=== PATIENT | female | born 1950 | race Caucasian/White ===

== ENCOUNTER 2016-09-02 13:39 | Inpatient (IN) | payer MEDICARE ==
[2016-09-02] MEDS ORDERED: SODIUM CHLORIDE 0.9% 500 ML IV STA (13:48)
[2016-09-02] MEDS ORDERED: SODIUM CHLORIDE 0.9% 1,000 ML IV STA ×2 (13:48→15:24)
[2016-09-02] MEDS ORDERED: KETOROLAC 30 MG/ML 1 ML VIAL IVP STA (13:49)
[2016-09-02] MEDS ORDERED: ACETAMINOPHEN IV (For NPO) 1,000 MG in EMPTY BAG 1 BAG IVPB STA (13:49)
--- NOTE | 2016-09-02 14:16 | ED ---
General Adult HPI - General Chief complaint: Weakness Stated complaint: weakness Time Seen by Provider: 09/02/16 13:48 Source: patient, family, EMS, RN notes reviewed, old records reviewed Mode of arrival: EMS Limitations: no limitations - History of Present Illness Initial comments: This is a 66-year-old female to the ER for evaluation. Patient today presents for evaluation of fever weakness not feeling well. Fever started today getting progressively worse. Patient has shortness of breath cough and congestion. Has had recent upper respiratory infection including runny nose. No known sick contacts a little family members have had flu. Patient denies any chest pain or any pain in general, states her RA is causing her pain but she always has that. Area or nausea vomiting, for family decreased appetite - Related Data Home Medications Medication Instructions Recorded Confirmed Omeprazole [PriLOSEC] 20 mg PO BID 02/20/14 09/02/16 predniSONE 10 mg PO DAILY 02/20/14 09/02/16 Cyanocobalamin [Vitamin B-12] 2,500 mcg PO DAILY 08/19/14 09/02/16 Ergocalciferol [Vitamin D2 50,000 unit PO WE 08/19/14 09/02/16 (DRISDOL)] Ferrous Sulfate [Iron (65 MG 325 mg PO HS 08/19/14 09/02/16 Elemental)] Furosemide 60 mg PO QAM 08/19/14 09/02/16 Calcitriol 0.25 mcg PO SUTUFR 01/07/15 09/02/16 Liothyronine Sodium [Cytomel] 5 mcg PO DAILY 01/07/15 09/02/16 ALPRAZolam [Xanax] 0.25 mg PO BID PRN 09/02/16 09/02/16 Carvedilol [Coreg] 25 mg PO BID 09/02/16 09/02/16 Enalapril [Vasotec] 5 mg PO HS 09/02/16 09/02/16 Gabapentin [Neurontin] 100 mg PO TID 09/02/16 09/02/16 Magnesium 200 mg PO DAILY 09/02/16 09/02/16 Metolazone [Zaroxolyn] 2.5 mg PO Q48H 09/02/16 09/02/16 Morphine Sulfate ER [Ms Contin 15 mg PO Q12HR 09/02/16 09/02/16 15Mg] Repaglinide [Prandin] 0.5 mg PO TID 09/02/16 09/02/16 Simvastatin [Zocor] 40 mg PO HS 09/02/16 09/02/16 Previous Rx's Medication Instructions Recorded Ondansetron Odt [Zofran ODT] 4 mg PO Q8HR PRN #15 tab 01/04/15 Levothyroxine Sodium [Synthroid] 25 mcg PO DAILY@0630 tab 01/12/15 Allergies Allergy/AdvReac Type Severity Reaction Status Date / Time codeine Allergy Rash/Hives Verified 09/02/16 14:51 Sulfa (Sulfonamide Allergy Rash/Hives Verified 09/02/16 14:51 Antibiotics) gold Allergy Unknown Uncoded 09/02/16 13:45 Review of Systems ROS Statement: Those systems with pertinent positive or pertinent negative responses have been documented in the HPI. ROS Other: All systems not noted in ROS Statement are negative. Past Medical History Past Medical History: Hyperlipidemia, Renal Disease, Thyroid Disorder Additional Past Medical History / Comment(s): low vitamin d levels which caused renal deficiency, parathyroid overactive related to low vit d levels, chronic prednisone secondary to RA followed by Dr. Marlow, ANEMIA,COMPRESSION FX L1, PAST FALL. of lithiasis History of Any Multi-Drug Resistant Organisms: None Reported Past Surgical History: Orthopedic Surgery Additional Past Surgical History / Comment(s): right knee TKA 2, carpel tunnel , CYST REMOVED (NECK) AGE 6 Past Anesthesia/Blood Transfusion Reactions: No Reported Reaction Past Psychological History: Anxiety Smoking Status: Never smoker Past Alcohol Use History: None Reported Past Drug Use History: None Reported - Past Family History Mother Additional Family Medical History / Comment(s): addisons disease Father Family Medical History: Hypertension General Exam Limitations: no limitations General appearance: alert, in no apparent distress, anxious, in distress Head exam: Present: atraumatic, normocephalic, normal inspection Eye exam: Present: normal appearance, PERRL, EOMI. Absent: scleral icterus, conjunctival injection, periorbital swelling ENT exam: Present: mucous membranes dry Neck exam: Present: normal inspection. Absent: tenderness, meningismus, lymphadenopathy Respiratory exam: Present: normal lung sounds bilaterally, wheezes, accessory muscle use, decreased breath sounds, prolonged expiratory. Absent: respiratory distress, rales, rhonchi, stridor Cardiovascular Exam: Present: normal rhythm, tachycardia, normal heart sounds. Absent: systolic murmur, diastolic murmur, rubs, gallop, clicks GI/Abdominal exam: Present: soft, normal bowel sounds. Absent: distended, tenderness, guarding, rebound, rigid Extremities exam: Present: normal inspection, full ROM, normal capillary refill. Absent: tenderness, pedal edema, joint swelling, calf tenderness Back exam: Present: normal inspection Neurological exam: Present: alert, oriented X3, CN II-XII intact Psychiatric exam: Present: normal affect, normal mood Skin exam: Present: warm, dry, intact, normal color. Absent: rash Course Vital Signs 09/02/16 09/02/16 13:41 15:35 Temperature 101.1 F H 99.3 F Pulse Rate 106 H 93 Respiratory 20 20 Rate Blood Pressure 151/72 120/58 O2 Sat by Pulse 91 L 100 Oximetry - Reevaluation(s) Reevaluation #1: 09/02/16 15:44 At this time patient's expansion mild clinical improvement with fever control and therapy, EKG Findings - EKG Comments: EKG Findings:: EKG shows normal sinus rhythm rate of 100, NM 156, QRS 74, QTC 433 Medical Decision Making - Medical Decision Making 62 for female here with fever weakness, woke with fever today, no nausea vomiting or diarrhea. Flu negative x-ray negative, urine pending, patient does appear dehydrated, also with anemia which is symptomatic. Patient will be admitted for fever control evaluation of blood cultures and bacteremia, transfusion - Lab Data Result diagrams: 09/02/16 14:25 09/02/16 14:25 Lab Results 09/02/16 09/02/16 09/02/16 Range/Units 13:49 14:25 14:25 WBC 6.8 (3.8-10.6) k/uL RBC 2.19 L (3.80-5.40) m/uL Hgb 6.7 L* (11.4-16.0) gm/dL Hct 21.8 L (34.0-46.0) % MCV 99.5 (80.0-100.0) fL MCH 30.5 (25.0-35.0) pg MCHC 30.7 L (31.0-37.0) g/dL RDW 14.5 (11.5-15.5) % Plt Count 163 (150-450) k/uL Neutrophils % 85 % Lymphocytes % 5 % Monocytes % 5 % Eosinophils % 3 % Basophils % 0 % Neutrophils # 5.7 (1.3-7.7) k/uL Lymphocytes # 0.4 L (1.0-4.8) k/uL Monocytes # 0.3 (0-1.0) k/uL Eosinophils # 0.2 (0-0.7) k/uL Basophils # 0.0 (0-0.2) k/uL Hypochromasia Moderate Macrocytosis Slight PT 10.7 (9.0-12.0) sec INR 1.1 (<1.1) APTT 22.1 (22.0-30.0) sec Sodium (137-145) mmol/L Potassium (3.5-5.1) mmol/L Chloride (98-107) mmol/L Carbon Dioxide (22-30) mmol/L Anion Gap mmol/L BUN (7-17) mg/dL Creatinine (0.52-1.04) mg/dL Est GFR (MDRD) Af Amer (>60 ml/min/1.73 sqM) Est GFR (MDRD) Non-Af (>60 ml/min/1.73 sqM) Glucose (74-99) mg/dL Plasma Lactic Acid Ricci (0.7-2.0) mmol/L Calcium (8.4-10.2) mg/dL Phosphorus (2.5-4.5) mg/dL Magnesium (1.6-2.3) mg/dL Total Bilirubin (0.2-1.3) mg/dL AST (14-36) U/L ALT (9-52) U/L Alkaline Phosphatase (38-126) U/L Total Creatine Kinase (30-135) U/L CK-MB (CK-2) (0.0-2.4) ng/mL CK-MB (CK-2) Rel Index Troponin I (0.000-0.034) ng/mL Total Protein (6.3-8.2) g/dL Albumin (3.5-5.0) g/dL Influenza Type A RNA Not Detected (Not Detectd) Influenza Type B (PCR) Not Detected (Not Detectd) 09/02/16 09/02/1609/02/17 Range/Units 14:25 14:25 14:55 WBC (3.8-10.6) k/uL RBC (3.80-5.40) m/uL Hgb (11.4-16.0) gm/dL Hct (34.0-46.0) % MCV (80.0-100.0) fL MCH (25.0-35.0) pg MCHC (31.0-37.0) g/dL RDW (11.5-15.5) % Plt Count (150-450) k/uL Neutrophils % % Lymphocytes % % Monocytes % % Eosinophils % % Basophils % % Neutrophils # (1.3-7.7) k/uL Lymphocytes # (1.0-4.8) k/uL Monocytes # (0-1.0) k/uL Eosinophils # (0-0.7) k/uL Basophils # (0-0.2) k/uL Hypochromasia Macrocytosis PT (9.0-12.0) sec INR (<1.1) APTT (22.0-30.0) sec Sodium 146 H (137-145) mmol/L Potassium 3.9 (3.5-5.1) mmol/L Chloride 110 H (98-107) mmol/L Carbon Dioxide 26 (22-30) mmol/L Anion Gap 10 mmol/L BUN 68 H (7-17) mg/dL Creatinine 1.37 H (0.52-1.04) mg/dL Est GFR (MDRD) Af Amer 47 (>60 ml/min/1.73 sqM) Est GFR (MDRD) Non-Af 39 (>60 ml/min/1.73 sqM) Glucose 98 (74-99) mg/dL Plasma Lactic Acid Ricci 0.9 (0.7-2.0) mmol/L Calcium 8.6 (8.4-10.2) mg/dL Phosphorus 2.8 (2.5-4.5) mg/dL Magnesium 1.9 (1.6-2.3) mg/dL Total Bilirubin 0.4 (0.2-1.3) mg/dL AST 21 (14-36) U/L ALT 22 (9-52) U/L Alkaline Phosphatase 92 (38-126) U/L Total Creatine Kinase 22 L (30-135) U/L CK-MB (CK-2) 0.5 (0.0-2.4) ng/mL CK-MB (CK-2) Rel Index 2.3 Troponin I 0.059 H* (0.000-0.034) ng/mL Total Protein 5.3 L (6.3-8.2) g/dL Albumin 2.8 L (3.5-5.0) g/dL Influenza Type A RNA (Not Detectd) Influenza Type B (PCR) (Not Detectd) - Radiology Data Radiology results: report reviewed (Chest x-ray is negative for pneumonia), image reviewed Critical Care Time Critical Care Time: Yes Total Critical Care Time: 31 Disposition Clinical Impression: Sepsis, Symptomatic anemia, Fever, Viral syndrome, ARF (acute renal failure) Disposition: ADMITTED IP TO THIS [facility] Condition: Fair Referrals: Fay Lerner MD [Primary Care Provider] - 1-2 days
--- NOTE | 2016-09-02 15:16 | XR ---
EXAMINATION TYPE: XR chest 2V DATE OF EXAM: 09/02/2016 3:11 PM COMPARISON: 08/18/2015 HISTORY: 66-year-old female with weakness TECHNIQUE: AP and lateral views FINDINGS: Heart remains mildly enlarged. Diffuse interstitial and vascular prominence without pleural effusion or jefferson consolidation. IMPRESSION: Mild cardiomegaly and diffuse interstitial/vascular prominence which appears increased from prior. Co rrelate to exclude mild CHF.
[2016-09-02 15:18] LABS: Basophils % (A) 0 %; CH 30.7; Calcium 8.6 mg/dL (8.4-10.2); Eosinophils # (A) 0.2 k/uL (0-0.7); Eosinophils % (A) 3 %; HCT 21.8 % (34.0-46.0); HDW 3.24; Hypochromasia Moderate; Luc # (Auto) 0.06; Luc % (Auto) 1; Lymphocytes # (A) 0.4 k/uL (1.0-4.8); Lymphocytes % (A) 5 %; MCH 30.5 pg (25.0-35.0); MCHC 30.7 g/dL (31.0-37.0); MCV 99.5 fL (80.0-100.0); Macrocytosis Slight; Magnesium 1.9 mg/dL (1.6-2.3); Mean Platelet Volume 8.1; Monocytes # (A) 0.3 k/uL (0-1.0); Monocytes % (A) 5 %; Neutrophils # (A) 5.7 k/uL (1.3-7.7); Neutrophils % (A) 85 %; Phosphorous 2.8 mg/dL (2.5-4.5); Potassium 3.9 mmol/L (3.5-5.1); RBC 2.19 m/uL (3.80-5.40); RDW 14.5 % (11.5-15.5); Total Bilirubin 0.4 mg/dL (0.2-1.3); Total Protein 5.3 g/dL (6.3-8.2); WBC 6.8 k/uL (3.8-10.6); WBC (Perox) 6.73
[2016-09-02 15:20] LABS: HGB 6.7 gm/dL (11.4-16.0)
[2016-09-02 15:24] LABS: INR 1.1 (<1.1); Partial Thromboplastin Time 22.1 sec (22.0-30.0); Prothrombin Time 10.7 sec (9.0-12.0)
[2016-09-02 15:34] LABS: Creatine Kinase MB 0.5 ng/mL (0.0-2.4)
[2016-09-02 15:36] LABS: Troponin I 0.059 ng/mL (0.000-0.034)
[2016-09-02] MEDS ORDERED: IPRATROPIUM-ALBUTEROL 3 ML NEB INHALATION PRN (15:42)
[2016-09-02] MEDS ORDERED: PNEUMONIA PROTOCOL UTILIZED 1 EACH MISC PO PRN (15:42)
[2016-09-02] MEDS ORDERED: ACETAMINOPHEN IV (For NPO) 1,000 MG in EMPTY BAG 1 BAG IVPB PRN (15:45)
[2016-09-02 15:53] LABS: Appearance,Urine Clear (Clear); Bacteria,Urine Occasional /hpf; Bilirubin,Urine Negative (Negative); Glucose,Urine (UA) Negative (Negative); Ketones,Urine Negative (Negative); Leukocyte Esterase,Urine Moderate (Negative); Mucus,Urine Rare /hpf; Nitrite,Urine Negative (Negative); PH, Urine 5.5 (5.0-8.0); Particle Count 46529; Protein,Urine Trace (Negative); RBC,Urine 16 /hpf (0-5); Specific Gravity,Urine 1.007 (1.001-1.035); Squamous Epithelial Cell,Urine <1 /hpf (0-4); UA Billing (MACRO vs. MICRO) MICRO; Urobilinogen,Urine <2.0 mg/dL (<2.0); WBC,Urine 32 /hpf (0-5)
[2016-09-02] MEDS: HYDROmorphone 1 MG/ML 1 ML SYRINGE IVP PRN ×2 (17:06→20:24)
[2016-09-02 18:52] VITALS: BMI 29.9
[2016-09-02] MEDS: SODIUM CHLORIDE 0.9% 1,000 ML IV SCH (18:54)
[2016-09-02] MEDS ORDERED: ALPRAZolam 0.25 MG TAB PO PRN (19:30)
[2016-09-02] MEDS ORDERED: ONDANSETRON ODT 4 MG TAB PO PRN (19:30)
[2016-09-02] MEDS ORDERED: CARVEDILOL 12.5 MG TAB PO SCH (21:00)
[2016-09-02] MEDS: FERROUS SULFATE 325 MG TAB PO SCH (22:32)
[2016-09-02] MEDS: PANTOPRAZOLE 40 MG TABLET PO SCH (22:32)
[2016-09-02] MEDS: GABAPENTIN 100 MG CAP PO SCH (22:32)
[2016-09-02] MEDS: LISINOPRIL 10 MG TAB PO SCH (22:32)
[2016-09-02] MEDS: REPAGLINIDE 1 MG TAB PO SCH (22:32)
[2016-09-02] MEDS: ATORVASTATIN 20 MG TAB PO SCH (22:45)
[2016-09-02] MEDS: MORPHINE SULFATE ER 15 MG TABLET PO SCH (22:45)
[2016-09-02 22:53] LABS: Glucose,Whole Blood 90 mg/dL (75-99)
[2016-09-03] MEDS: HYDROmorphone 1 MG/ML 1 ML SYRINGE IVP PRN ×4 (02:39→23:28)
[2016-09-03 02:44] LABS: Glucose,Whole Blood 60 mg/dL (75-99)
[2016-09-03 03:04] LABS: Glucose,Whole Blood 67 mg/dL (75-99)
[2016-09-03 03:23] LABS: Glucose,Whole Blood 94 mg/dL (75-99)
[2016-09-03 05:53] LABS: Glucose,Whole Blood 123 mg/dL (75-99)
[2016-09-03] MEDS: SODIUM CHLORIDE 0.9% 1,000 ML IV SCH ×3 (06:31→21:18)
[2016-09-03] MEDS: CARVEDILOL 12.5 MG TAB PO SCH ×2 (06:31→17:25)
[2016-09-03] MEDS: LEVOTHYROXINE 25 MCG TAB PO SCH (06:31)
[2016-09-03] MEDS ORDERED: FUROSEMIDE 20 MG TAB PO SCH (09:00)
[2016-09-03] MEDS: LIOTHYRONINE SODIUM 5 MCG TAB PO SCH (09:10)
[2016-09-03] MEDS: PANTOPRAZOLE 40 MG TABLET PO SCH ×2 (09:10→21:14)
[2016-09-03] MEDS: GABAPENTIN 100 MG CAP PO SCH ×3 (09:10→21:14)
[2016-09-03] MEDS: METOLAZONE 2.5 MG TAB PO SCH (09:11)
[2016-09-03] MEDS: REPAGLINIDE 1 MG TAB PO SCH ×3 (09:11→21:14)
[2016-09-03] MEDS: predniSONE 10 MG TAB PO SCH (09:12)
[2016-09-03] MEDS: CALCITRIOL 0.25 MCG CAP PO SCH (09:12)
[2016-09-03 09:13] LABS: CH 30.9; CHCM 31.6; HCT 21.7 % (34.0-46.0); HDW 3.52; Hypochromasia Moderate; MCH 30.4 pg (25.0-35.0); MCHC 30.8 g/dL (31.0-37.0); MCV 98.7 fL (80.0-100.0); Macrocytosis Slight; Mean Platelet Volume 9.2; Poikilocytosis Slight; RBC 2.19 m/uL (3.80-5.40); RDW 15.2 % (11.5-15.5); WBC 4.7 k/uL (3.8-10.6)
[2016-09-03] MEDS: MORPHINE SULFATE ER 15 MG TABLET PO SCH ×2 (09:18→21:17)
[2016-09-03 09:21] LABS: HGB 6.7 gm/dL (11.4-16.0)
[2016-09-03 09:28] LABS: Calcium 7.6 mg/dL (8.4-10.2); Potassium 4.4 mmol/L (3.5-5.1)
--- NOTE | 2016-09-03 10:15 | P.GSCN ---
History of Present Illness Consult date: 09/03/16 Reason for Consult: GI bleeding History of present illness: Patient hospitalized with fatigue. She is found to be anemic with a hemoglobin in the 6 range. She describes suffering with anemia for the last 10-20 years. She had a workup done about a year to year and a half ago by Dr. Camacho which included upper and lower endoscopy she states. She states these were normal. She feels much better today after receiving transfusion. Denies rectal bleeding or melena. Her Hemoccult was positive. Review of Systems The patient denies any acute changes in his vision or hearing, no dysphagia or odynophagia, no chest pain or shortness of breath, no dysuria or hematuria, no headache, no runny nose, no rectal bleeding or melena, no unexplained weight loss Past Medical History Past Medical History: Hyperlipidemia, Renal Disease, Thyroid Disorder Additional Past Medical History / Comment(s): low vitamin d levels which caused renal deficiency, parathyroid overactive related to low vit d levels, chronic prednisone secondary to RA followed by Dr. Marlow, ANEMIA,COMPRESSION FX L1, PAST FALL. of lithiasis History of Any Multi-Drug Resistant Organisms: None Reported Past Surgical History: Orthopedic Surgery Additional Past Surgical History / Comment(s): right knee TKA 2, carpel tunnel , CYST REMOVED (NECK) AGE 6 Past Anesthesia/Blood Transfusion Reactions: No Reported Reaction Past Psychological History: Anxiety Smoking Status: Never smoker Past Alcohol Use History: None Reported Past Drug Use History: None Reported - Past Family History Mother Additional Family Medical History / Comment(s): addisons disease Father Family Medical History: Hypertension Medications and Allergies Home Medications Medication Instructions Recorded Confirmed Type Omeprazole [PriLOSEC] 20 mg PO BID 02/20/14 09/02/16 History predniSONE 10 mg PO DAILY 02/20/14 09/02/16 History Cyanocobalamin [Vitamin B-12] 2,500 mcg PO DAILY 08/19/14 09/02/16 History Ergocalciferol [Vitamin D2 50,000 unit PO WE 08/19/14 09/02/16 History (DRISDOL)] Ferrous Sulfate [Iron (65 MG 325 mg PO HS 08/19/14 09/02/16 History Elemental)] Furosemide 60 mg PO QAM 08/19/14 09/02/16 History Calcitriol 0.25 mcg PO SUTUFR 01/07/15 09/02/16 History Liothyronine Sodium [Cytomel] 5 mcg PO DAILY 01/07/15 09/02/16 History ALPRAZolam [Xanax] 0.25 mg PO BID PRN 09/02/16 09/02/16 History Carvedilol [Coreg] 25 mg PO BID 09/02/16 09/02/16 History Enalapril [Vasotec] 5 mg PO HS 09/02/16 09/02/16 History Gabapentin [Neurontin] 100 mg PO TID 09/02/16 09/02/16 History Magnesium 200 mg PO DAILY 09/02/16 09/02/16 History Metolazone [Zaroxolyn] 2.5 mg PO Q48H 09/02/16 09/02/16 History Morphine Sulfate ER [Ms Contin 15 mg PO Q12HR 09/02/16 09/02/16 History 15Mg] Repaglinide [Prandin] 0.5 mg PO TID 09/02/16 09/02/16 History Simvastatin [Zocor] 40 mg PO HS 09/02/16 09/02/16 History Allergies Allergy/AdvReac Type Severity Reaction Status Date / Time codeine Allergy Rash/Hives Verified 09/02/16 14:51 Sulfa (Sulfonamide Allergy Rash/Hives Verified 09/02/16 14:51 Antibiotics) gold Allergy Unknown Uncoded 09/02/16 13:45 Surgical - Exam Vital Signs Temp Pulse Resp BP Pulse Ox 101.1 F H 106 H 20 151/72 91 L 09/02/16 13:41 09/02/16 13:41 09/02/16 13:41 09/02/16 13:41 09/02/16 13:41 Physical exam: General: Well-developed, well-nourished HEENT: Normocephalic, sclerae nonicteric Abdomen: Nontender, nondistended Extremities: No edema Neuro: Alert and oriented Results - Labs 09/03/16 08:56 09/03/16 08:56 Abnormal Lab Results - Last 24 Hours (Table) 09/03/16 09/03/16 09/03/16 Range/Units 02:40 02:43 03:02 RBC (3.80-5.40) m/uL Hgb (11.4-16.0) gm/dL Hct (34.0-46.0) % MCHC (31.0-37.0) g/dL Plt Count (150-450) k/uL Chloride (98-107) mmol/L BUN (7-17) mg/dL Creatinine (0.52-1.04) mg/dL POC Glucose (mg/dL) 60 L 67 L (75-99) mg/dL Calcium (8.4-10.2) mg/dL Stool Occult Blood Positive H (Negative) 09/03/16 09/03/16 09/03/16 Range/Units 05:45 08:56 08:56 RBC 2.19 L (3.80-5.40) m/uL Hgb 6.7 L* (11.4-16.0) gm/dL Hct 21.7 L (34.0-46.0) % MCHC 30.8 L (31.0-37.0) g/dL Plt Count 100 L (150-450) k/uL Chloride 113 H (98-107) mmol/L BUN 64 H (7-17) mg/dL Creatinine 1.48 H (0.52-1.04) mg/dL POC Glucose (mg/dL) 123 H (75-99) mg/dL Calcium 7.6 L (8.4-10.2) mg/dL Stool Occult Blood (Negative) Diabetes panel 09/03/16 Range/Units 08:56 Sodium 144 (137-145) mmol/L Potassium 4.4 (3.5-5.1) mmol/L Chloride 113 H (98-107) mmol/L Carbon Dioxide 23 (22-30) mmol/L BUN 64 H (7-17) mg/dL Creatinine 1.48 H (0.52-1.04) mg/dL Glucose 96 (74-99) mg/dL Calcium 7.6 L (8.4-10.2) mg/dL Calcium panel 09/03/16 Range/Units 08:56 Calcium 7.6 L (8.4-10.2) mg/dL Pituitary panel 09/03/16 Range/Units 08:56 Sodium 144 (137-145) mmol/L Potassium 4.4 (3.5-5.1) mmol/L Chloride 113 H (98-107) mmol/L Carbon Dioxide 23 (22-30) mmol/L BUN 64 H (7-17) mg/dL Creatinine 1.48 H (0.52-1.04) mg/dL Glucose 96 (74-99) mg/dL Calcium 7.6 L (8.4-10.2) mg/dL Adrenal panel 09/03/16 Range/Units 08:56 Sodium 144 (137-145) mmol/L Potassium 4.4 (3.5-5.1) mmol/L Chloride 113 H (98-107) mmol/L Carbon Dioxide 23 (22-30) mmol/L BUN 64 H (7-17) mg/dL Creatinine 1.48 H (0.52-1.04) mg/dL Glucose 96 (74-99) mg/dL Calcium 7.6 L (8.4-10.2) mg/dL Assessment and Plan (1) Symptomatic anemia Narrative/Plan: Continue to follow hemoglobin. We'll try to obtain the previous endoscopy reports. No immediate plans for endoscopy. Status: Acute
[2016-09-03] MEDS: ENOXAPARIN 40 MG/0.4 ML SYRINGE SQ SCH (10:22)
--- NOTE | 2016-09-03 10:29 | XR ---
EXAMINATION TYPE: XR chest 2V DATE OF EXAM: 09/03/2016 10:22 AM COMPARISON: 09/02/2016 HISTORY: 66-year-old female with pneumonia, shortness of breath TECHNIQUE: Frontal and lateral views FINDINGS: Heart is mildly enlarged. Aorta within normal limits. Diffuse interstitial opacities stable to slight ly increased from prior. No jefferson consolidation or significant pleural effusion. IMPRESSION: Correlate for continued CHF possibly with early interstitial pulmonary edema.
[2016-09-03 12:24] LABS: Glucose,Whole Blood 60 mg/dL (75-99)
[2016-09-03 12:24] LABS: Glucose,Whole Blood 57 mg/dL (75-99)
[2016-09-03 12:34] LABS: Glucose,Whole Blood 95 mg/dL (75-99)
--- NOTE | 2016-09-03 13:42 | P.HPIM ---
History of Present Illness H&P Date: 09/03/16 Chief Complaint: Shortness of breath and fever This a pleasant 64-year-old female recently transferred to my practice. She has underlying history off CK D stage III hypertension diabetes mellitus rheumatoid arthritis on chronic prednisone. Chronic protein malnutrition, chronic pain She had a prior C. diff toxin positive in January 2015 She is chronically on [address] Marlow secondary to rheumatoid arthritis. She has had increasing difficulty For the past 2-3 weeks with an upper respiratory sinus congestion and this has subsequently gotten worse with purulence and few days prior to admission she had some fever and chills. She has been exposed to the stomach flu lately not influenza virus, at home. Patient denies any significant diarrhea however she has some pasty stools dark green without any melena. Patient did not receive any antibiotics prior to admission patient cannot take any NSAIDs secondary to CK D She also has lack of appetite nausea shortness of breath no significant wheezing. She also has increasing weakness no recent falls and syncope no chest pain no palpitations. In the emergency room She was noted to be severely anemic with a hemoglobin of 6.7 from a previous of 9.1 a year ago. She follows normally with me for lab draws at [facility]. He would try to retrieve those numbers however she has occult positive stools consult were made with Dr. Quigley from general surgery. She was on Procrit in 2013 which was discontinued as the hemoglobin was nearly 12. She received 1 unit packed red blood cell in the floor with additional 2 units as given for hemoglobin of 6.7 and 6.7 after transfusion. Influenza test in the emergency room is negative for PCR urinalysis shows some pyuria RBC 16 WBC 32 chest x-ray showed diffuse interstitial vascular prominence which is increased from previous. i Review of Systems Constitutional: Reports as per HPI, Reports anorexia, Reports chills, Reports chronic pain, Reports fatigue, Reports lethargy, Reports malaise, Reports poor appetite, Reports weakness, Denies chronic headaches, Denies daytime sleepiness , Denies fever, Denies night sweats, Denies sweats, Denies weight gain, Denies weight loss Ears, nose, mouth and throat: Reports as per HPI, Denies ant. neck pain, Denies bleeding gums, Denies dental pain, Denies dysphagia, Denies epistaxis, Denies headache, Denies hoarseness, Denies mouth pain, Denies nasal congestion, Denies nasal discharge, Denies neck fullness/pressure, Denies neck lump, Denies nose pain, Denies odynophagia, Denies post-nasal drip, Denies sinus pain, Denies sinus pressure, Denies swelling in mouth, Denies swelling in throat, Denies sore throat, Denies vertigo, Denies voice changes Cardiovascular: Reports as per HPI, Reports decreased exercise tolerance, Reports edema, Reports shortness of breath, Denies chest pain, Denies claudication, Denies dyspnea on exertion, Denies high blood pressure, Denies irregular heart beat, Denies leg edema, Denies lightheadedness, Denies orthopnea , Denies palpitations, Denies paroxysmal nocturnal dyspnea, Denies phlebitis, Denies rapid heart beat, Denies syncope Respiratory: Reports as per HPI, Reports cough, Reports cough with sputum, Reports dyspnea, Denies congestion, Denies excessive sputum, Denies hemoptysis, Denies home oxygen, Denies pain, Denies pain on inspiration, Denies pleurisy, Denies respiratory infections, Denies sleep apnea, Denies snoring, Denies wheezing Gastrointestinal: Reports as per HPI, Reports diarrhea, Denies abdominal pain, Denies belching, Denies bloating, Denies BRBPR, Denies change in bowel habits, Denies coffee ground emesis, Denies constipation, Denies dyspepsia, Denies early satiety, Denies excessive gas, Denies heartburn, Denies hematemesis, Denies hematochezia, Denies indigestion, Denies jaundice, Denies lactose intolerance, Denies loss of appetite, Denies melena, Denies nausea, Denies vomiting Genitourinary: Reports as per HPI, Denies abnormal vaginal bleeding, Denies decreased libido, Denies difficulty conceiving, Denies difficulty voiding, Denies dysmenorrhea, Denies dyspareunia, Denies dysuria, Denies flank pain, Denies genital sores, Denies hematuria, Denies hot flashes, Denies incomplete emptying, Denies kidney stones, Denies menorrhagia, Denies mixed incontinence, Denies nocturia, Denies pelvic pain, Denies post void dribbling, Denies , Denies prolapse symptoms, Denies stress incontinence, Denies urge incontinence , Denies urgency, Denies urinary frequency, Denies vaginal discharge, Denies vaginal dryness, Denies vaginal itching, Denies vaginal odor Menstruation: Reports as per HPI, Denies amenorrhea, Denies amenorrhea on BC, Denies currently menstrual, Denies cycle < 21 days, Denies cycle > 35 days, Denies cycle variable, Denies menses 1-7 days, Denies menses 8 or > days, Denies menses variable, Denies period heavy, Denies period light, Denies period normal, Denies period spotting, Denies post hysterectomy, Denies postmenopausal , Denies premenarcheal Musculoskeletal: Reports as per HPI, Denies arm numbness/tingling, Denies atrophy, Denies fractures, Denies frequent falls, Denies gait dysfunction, Denies hot joints, Denies leg numbness/tingling, Denies limitation of motion, Denies loss of height, Denies low back pain, Denies morning stiffness, Denies muscle cramps, Denies muscle weakness, Denies myalgias, Denies neck pain, Denies neck stiffness, Denies prior amputations, Denies redness of joints, Denies shooting arm pain, Denies shooting leg pain Integumentary: Reports as per HPI, Denies acne, Denies boils, Denies brittle nails, Denies change in hair/nails, Denies color changes, Denies darkening of skin, Denies depigmentation, Denies dryness, Denies foot/leg ulcers, Denies growths, Denies hirsutism, Denies lesions, Denies onychomycosis, Denies pruritus , Denies rash, Denies sores, Denies striae, Denies unusual bruising, Denies wounds Neurological: Reports as per HPI, Denies aphasia, Denies ataxia, Denies balance difficulties, Denies burning pain, Denies change in mentation, Denies change in smell/taste, Denies change in speech, Denies confusion, Denies convulsions, Denies double vision, Denies gait dysfunction, Denies head injury, Denies headaches, Denies hearing difficulties, Denies lack of coordination, Denies loss of vision, Denies memory loss, Denies migraines, Denies motor disturbance, Denies numbness, Denies paralysis, Denies paresthesias, Denies seizures, Denies sensory deficit, Denies spasticity, Denies syncope, Denies tic, Denies tingling , Denies transient paralysis, Denies tremors, Denies vertigo, Denies weakness, Denies visual changes Psychiatric: Reports as per HPI, Denies anhedonia, Denies anxiety, Denies anxiety attacks, Denies change in appetite, Denies change in libido, Denies change in sleep habits, Denies confusion, Denies depression, Denies difficulty concentrating, Denies disorientation, Denies hallucinations, Denies hopelessness , Denies hypersomnia, Denies insomnia, Denies irritability, Denies memory loss, Denies mood swings, Denies paranoia, Denies sadness/tearfulness, Denies sleep disturbances, Denies suicidal ideation Endocrine: Reports as per HPI, Denies cold intolerance, Denies deepening of the voice, Denies excessive sweating, Denies excessive thirst, Denies fatigue, Denies flushing, Denies heat intolerance, Denies high blood sugars, Denies increase in ring/shoe/hat size, Denies low blood sugars, Denies nocturia, Denies palpitations, Denies polydipsia, Denies polyphagia, Denies polyuria, Denies proptosis, Denies recent glucocorticoid use, Denies thyroid mass, Denies weight change Hematologic/Lymphatic: Reports as per HPI, Denies easy bleeding, Denies easy bruising, Denies lymphadenopathy, Denies lymphedema, Denies thrombophilia Allergic/Immunologic: Reports as per HPI, Denies allergic rhinitis, Denies anaphylaxis, Denies angioedema, Denies gluten intolerance, Denies persistent infections, Denies seasonal allergies, Denies urticaria, Denies wheezing Past Medical History Past Medical History: Hyperlipidemia, Renal Disease, Thyroid Disorder Additional Past Medical History / Comment(s): low vitamin d levels which caused renal deficiency, parathyroid overactive related to low vit d levels, chronic prednisone secondary to RA followed by Dr. Marlow, ANEMIA,COMPRESSION FX L1, PAST FALL. of lithiasis History of Any Multi-Drug Resistant Organisms: None Reported Past Surgical History: Orthopedic Surgery Additional Past Surgical History / Comment(s): right knee TKA 2, carpel tunnel , CYST REMOVED (NECK) AGE 6 Past Anesthesia/Blood Transfusion Reactions: No Reported Reaction Past Psychological History: Anxiety Smoking Status: Never smoker Past Alcohol Use History: None Reported Past Drug Use History: None Reported - Past Family History Mother Additional Family Medical History / Comment(s): addisons disease Father Family Medical History: Hypertension Medications and Allergies Home Medications Medication Instructions Recorded Confirmed Type Omeprazole [PriLOSEC] 20 mg PO BID 02/20/14 09/02/16 History predniSONE 10 mg PO DAILY 02/20/14 09/02/16 History Cyanocobalamin [Vitamin B-12] 2,500 mcg PO DAILY 08/19/14 09/02/16 History Ergocalciferol [Vitamin D2 50,000 unit PO WE 08/19/14 09/02/16 History (DRISDOL)] Ferrous Sulfate [Iron (65 MG 325 mg PO HS 08/19/14 09/02/16 History Elemental)] Furosemide 60 mg PO QAM 08/19/14 09/02/16 History Calcitriol 0.25 mcg PO SUTUFR 01/07/15 09/02/16 History Liothyronine Sodium [Cytomel] 5 mcg PO DAILY 01/07/15 09/02/16 History ALPRAZolam [Xanax] 0.25 mg PO BID PRN 09/02/16 09/02/16 History Carvedilol [Coreg] 25 mg PO BID 09/02/16 09/02/16 History Enalapril [Vasotec] 5 mg PO HS 09/02/16 09/02/16 History Gabapentin [Neurontin] 100 mg PO TID 09/02/16 09/02/16 History Magnesium 200 mg PO DAILY 09/02/16 09/02/16 History Metolazone [Zaroxolyn] 2.5 mg PO Q48H 09/02/16 09/02/16 History Morphine Sulfate ER [Ms Contin 15 mg PO Q12HR 09/02/16 09/02/16 History 15Mg] Repaglinide [Prandin] 0.5 mg PO TID 09/02/16 09/02/16 History Simvastatin [Zocor] 40 mg PO HS 09/02/16 09/02/16 History Allergies Allergy/AdvReac Type Severity Reaction Status Date / Time codeine Allergy Rash/Hives Verified 09/02/16 14:51 Sulfa (Sulfonamide Allergy Rash/Hives Verified 09/02/16 14:51 Antibiotics) gold Allergy Unknown Uncoded 09/02/16 13:45 Physical Exam Vitals: Vital Signs Temp Pulse Pulse Resp BP BP Pulse Ox 09/03/16 12:50 98.4 F 81 18 118/59 95 09/03/16 12:38 98.4 F 81 18 120/60 95 09/03/16 12:28 99.5 F 86 16 119/56 96 09/03/16 08:00 97.7 F 88 18 109/46 98 09/03/16 04:00 97.7 F 83 18 122/59 98 09/03/16 00:00 99.7 F H 86 18 126/60 96 09/02/16 22:30 114/55 09/02/16 20:21 99.5 F 86 16 119/56 96 09/02/16 20:00 75 18 09/02/16 18:25 98.2 F 80 18 95/54 100 09/02/16 18:24 100 09/02/16 17:50 98.2 F 78 16 97/52 100 Intake and Output 09/02/16 09/03/16 09/03/16 22:59 06:59 14:59 Intake Total 360 1200 0 Output Total 600 1 Balance -240 1199 0 Intake: IV 1200 Sodium Chloride 0.9% 1, 1200 000 ml @ 100 mls/hr IV . Q10H [facility] Rx#:[id number] Amount of Fluid Infused ( 50 ml) Blood Product 310 0 Rc As-1 Unit 0 [id number] Rc As-1 Unit 310 [id number] Output: Urine 600 Stool 1 Other: # Voids 0 # Bowel Movements 0 Weight 79 kg 79 kg - Constitutional General appearance: cooperative, no acute distress - EENT Eyes: anicteric sclerae, EOMI, PERRLA ENT: NA/AT, normal oropharynx - Neck Neck: no lymphadenopathy, normal ROM, no other, no rigidity, no stridor, no thyromegaly - Respiratory Respiratory: bilateral: rales, negative: CTA, diminished, dullness, rhonchi, wheezing - Cardiovascular Rhythm: regular Heart sounds: normal: S1, S2 Abnormal Heart Sounds: no systolic murmur, no diastolic murmur, no rub, no S3 Gallop, no S4 Gallop, no click, no other - Gastrointestinal General gastrointestinal: normal bowel sounds, soft - Integumentary Integumentary: normal, normal turgor - Neurologic Neurologic: CNII-XII intact - Musculoskeletal Musculoskeletal: generalized weakness, strength equal bilaterally - Psychiatric Psychiatric: A&O x's 3, appropriate affect, intact judgment & insight Results CBC & Chem 7: 09/03/16 08:56 09/03/16 08:56 Labs: Abnormal Lab Results - Last 24 Hours (Table) 09/03/16 09/03/16 09/03/16 Range/Units 02:40 02:43 03:02 RBC (3.80-5.40) m/uL Hgb (11.4-16.0) gm/dL Hct (34.0-46.0) % MCHC (31.0-37.0) g/dL Plt Count (150-450) k/uL Chloride (98-107) mmol/L BUN (7-17) mg/dL Creatinine (0.52-1.04) mg/dL POC Glucose (mg/dL) 60 L 67 L (75-99) mg/dL Calcium (8.4-10.2) mg/dL Stool Occult Blood Positive H (Negative) 09/03/16 09/03/16 09/03/16 Range/Units 05:45 08:56 08:56 RBC 2.19 L (3.80-5.40) m/uL Hgb 6.7 L* (11.4-16.0) gm/dL Hct 21.7 L (34.0-46.0) % MCHC 30.8 L (31.0-37.0) g/dL Plt Count 100 L (150-450) k/uL Chloride 113 H (98-107) mmol/L BUN 64 H (7-17) mg/dL Creatinine 1.48 H (0.52-1.04) mg/dL POC Glucose (mg/dL) 123 H (75-99) mg/dL Calcium 7.6 L (8.4-10.2) mg/dL Stool Occult Blood (Negative) 09/03/16 09/03/16 Range/Units 11:52 12:11 RBC (3.80-5.40) m/uL Hgb (11.4-16.0) gm/dL Hct (34.0-46.0) % MCHC (31.0-37.0) g/dL Plt Count (150-450) k/uL Chloride (98-107) mmol/L BUN (7-17) mg/dL Creatinine (0.52-1.04) mg/dL POC Glucose (mg/dL) 57 L 60 L (75-99) mg/dL Calcium (8.4-10.2) mg/dL Stool Occult Blood (Negative) Thrombosis Risk Factor Assmnt - DVT/VTE Prophylaxis DVT/VTE Prophylaxis: Mechanical Prophylaxis ordered (blood loss anemia gi source ), Contraindicated - See note - Choose All That Apply Any of the Below Risk Factors Present?: Yes Each Factor Represents 1 point: Obesity (BMI >25) Other Risk Factors: Yes Each Risk Factor Represents 2 Points: Age 61-74 years Other congenital or acquired thrombophilia - If yes, enter type in comment: No Thrombosis Risk Factor Assessment Total Risk Factor Score: 3 Thrombosis Risk Factor Assessment Level: Moderate Risk Assessment and Plan Plan: 1. Sepsis with SIRS, suspected pneumonia with underlying low-grade pyuria UTIs also suspected, patient is on IV Rocephin with cultures to be obtained from the urine and blood, influenza test is negative patient would need a sputum culture and sensitivity as well 2 Acute blood loss anemia on chronic anemia chronic prednisone A GI source is suspected, patient is in consultation by Dr. Quigley from general surgery with possible EGD in the immediate future. Patient had a colonoscopy performed by Dr. Camacho close year ago with no significant pathology. Patient received a total of 3 units to date back red blood cells she would need iron infusion should her iron stores below and IV Protonix with gastritis treatment as she is on chronic prednisone . 3. Diabetes mellitus type 2 on Prandin 0.5 mg 3 times a day insulin sliding scale 4. Diastolic CHF, echocardiogram will be obtained, she is on Zaroxolyn 2.5 mg every 48 hours IV Lasix 40 mg daily8 hours 5. CK D stage III, nephrotoxins will be avoided, including hypotension, protect for hemodynamic instability, patient would be monitored for her renal function test and azotemia secondary to GI bleed 6. Rheumatoid arthritis for which she is currently was on oral prednisone she is not on any biological disease modifying agents and 7. Chronic anemia chronic disease . Iron levels will be obtained might need iron infusion against aranesp down the line once infection clears out 8. Hypothyroidism for which she is currently on Cytomel 5 g we'll going to add levothyroxine 25 g 9. Hypertension on lisinopril 20 and milligrams daily, Zaroxolyn 2.5 mg every 48 hours and Lasix 9Hyperlipidemia hold zocor with elev cpk 10. History of Clostridium difficile January 2015 probiotics will be started while on antibiotic 10code status full no prolonged intubation GI prophylaxis and DVT prophylaxis with Protonix 40 mg twice a day, no pharmaceutical prophylaxis secondary to GI bleed. Patient has CHAUNCEY cyrus and SCDs
[2016-09-03] MEDS: FUROSEMIDE 10 MG/ML 4 ML VIAL IV SCH ×2 (15:38→23:21)
[2016-09-03] MEDS: LACTOBACILLUS ACIDOPH & BULGAR 1 EACH PACKET PO SCH ×2 (15:39→21:14)
[2016-09-03 17:10] LABS: Glucose,Whole Blood 161 mg/dL (75-99)
[2016-09-03 20:43] LABS: Glucose,Whole Blood 127 mg/dL (75-99)
[2016-09-03] MEDS: ATORVASTATIN 20 MG TAB PO SCH (21:14)
[2016-09-03] MEDS: FERROUS SULFATE 325 MG TAB PO SCH (21:14)
[2016-09-03] MEDS: LISINOPRIL 10 MG TAB PO SCH (21:14)
[2016-09-04 00:07] LABS: Basophils % (A) 0 %; CHCM 32.4; Eosinophils % (A) 0 %; HCT 27.1 % (34.0-46.0); HDW 3.54; Hypochromasia Slight; Luc # (Auto) 0.07; Luc % (Auto) 2; Lymphocytes # (A) 0.4 k/uL (1.0-4.8); Lymphocytes % (A) 9 %; MCH 31.3 pg (25.0-35.0); MCHC 32.4 g/dL (31.0-37.0); MCV 96.6 fL (80.0-100.0); Mean Platelet Volume 8.4; Monocytes # (A) 0.2 k/uL (0-1.0); Monocytes % (A) 5 %; Neutrophils # (A) 3.5 k/uL (1.3-7.7); Neutrophils % (A) 84 %; Poikilocytosis Slight; RBC 2.81 m/uL (3.80-5.40); WBC 4.1 k/uL (3.8-10.6); WBC (Perox) 4.17
[2016-09-04 00:13] LABS: HGB 8.8 gm/dL (11.4-16.0)
[2016-09-04] MEDS: HYDROmorphone 1 MG/ML 1 ML SYRINGE IVP PRN ×3 (03:38→20:40)
[2016-09-04] MEDS: SODIUM CHLORIDE 0.9% 1,000 ML IV SCH (03:39)
[2016-09-04 06:07] LABS: Glucose,Whole Blood 61 mg/dL (75-99)
[2016-09-04] MEDS: LEVOTHYROXINE 25 MCG TAB PO SCH (06:33)
[2016-09-04] MEDS: CARVEDILOL 12.5 MG TAB PO SCH ×2 (06:34→17:10)
[2016-09-04 06:35] LABS: Glucose,Whole Blood 71 mg/dL (75-99)
[2016-09-04 06:45] LABS: Basophils % (A) 1 %; CH 31.1; Eosinophils # (A) 0.1 k/uL (0-0.7); Eosinophils % (A) 2 %; HCT 28.8 % (34.0-46.0); HDW 3.51; HGB 9.2 gm/dL (11.4-16.0); Hypochromasia Slight; Luc % (Auto) 3; Lymphocytes # (A) 0.5 k/uL (1.0-4.8); Lymphocytes % (A) 13 %; MCH 31.2 pg (25.0-35.0); MCHC 31.8 g/dL (31.0-37.0); MCV 98.1 fL (80.0-100.0); Macrocytosis Slight; Mean Platelet Volume 8.3; Monocytes # (A) 0.2 k/uL (0-1.0); Monocytes % (A) 7 %; Neutrophils # (A) 2.8 k/uL (1.3-7.7); Neutrophils % (A) 76 %; Poikilocytosis Slight; RBC 2.94 m/uL (3.80-5.40); RDW 15.1 % (11.5-15.5); WBC 3.7 k/uL (3.8-10.6); WBC (Perox) 3.66
[2016-09-04 07:15] LABS: Manual Review Performed
[2016-09-04] MEDS: ENOXAPARIN 40 MG/0.4 ML SYRINGE SQ SCH (08:12)
[2016-09-04] MEDS: REPAGLINIDE 1 MG TAB PO SCH (09:09)
[2016-09-04] MEDS: LACTOBACILLUS ACIDOPH & BULGAR 1 EACH PACKET PO SCH ×3 (09:10→20:52)
[2016-09-04] MEDS: FUROSEMIDE 10 MG/ML 4 ML VIAL IV SCH ×2 (09:12→15:53)
[2016-09-04] MEDS: GABAPENTIN 100 MG CAP PO SCH ×3 (09:12→20:38)
[2016-09-04] MEDS: MORPHINE SULFATE ER 15 MG TABLET PO SCH ×2 (09:12→23:00)
[2016-09-04] MEDS: PANTOPRAZOLE 40 MG TABLET PO SCH ×2 (09:12→20:38)
[2016-09-04] MEDS: LIOTHYRONINE SODIUM 5 MCG TAB PO SCH (09:12)
[2016-09-04] MEDS: predniSONE 10 MG TAB PO SCH (09:12)
[2016-09-04 09:56] LABS: % Iron Saturation 9.3 % (20-50)
--- NOTE | 2016-09-04 11:14 | ECHOF ---
Referral Reason:chf exacerbation MEASUREMENTS -------- HEIGHT: 162.6 cm WEIGHT: 76.7 kg BP: 126/60 RVIDd: 3.4 cm (< 3.3) IVSd: 1.2 cm (0.6 - 1.1) LVIDd: 4.3 cm (3.9 - 5.3) LVPWd: 1.1 cm (0.6 - 1.1) IVSs: 1.8 cm LVIDs: 3.0 cm LVPWs: 1.8 cm LAESV Index (A-L): 31.73 ml/m Ao Diam: 3.1 cm (2.0 - 3.7) AV Cusp: 2.1 cm (1.5 - 2.6) LA Diam: 2.7 cm (2.7 - 3.8) MV EXCURSION: 18.048 mm (> 18.000) MV EF SLOPE: 33 mm/s (70 - 150) EPSS: 1.0 cm MV E Cristopher: 0.97 m/s MV DecT: 277 ms MV A Cristopher: 1.01 m/s MV E/A Ratio: 0.95 RAP: 5.00 mmHg RVSP: 32.94 mmHg FINDINGS -------- Sinus rhythm. This was a technically good study. There is borderline concentric left ventricular hypertrophy. Overall left ventricular systolic function is normal with, an EF between 55 - 60 %. The right ventricle is mildly enlarged. LA is midly dilated 29-33ml/m2. The right atrium is normal in size. Aortic valve is trileaflet and is mildly thickened. Mild mitral annular calcification present. Mild mitral regurgitation is present. Mild tricuspid regurgitation present. Right ventricular systolic pressure is normal at < 35 mmHg. Pulmonic valve appears structurally normal. The aortic root size is normal. Normal inferior vena cava with normal inspiratory collapse consistent with estimated right atrial pressure of 5 mmHg. Echo free space may represent effusion or a pericardial fat pad. CONCLUSIONS -------- 1. Sinus rhythm. 2. Mild mitral regurgitation is present. 3. Mild tricuspid regurgitation present. 4. Right ventricular systolic pressure is normal at < 35 mmHg. 5. Pulmonic valve appears structurally normal. 6. The aortic root size is normal. 7. Echo free space may represent effusion or a pericardial fat pad. 8. This was a technically good study. 9. There is borderline concentric left ventricular hypertrophy. 10. Overall left ventricular systolic function is normal with, an EF between 55 - 60 %. 11. The right ventricle is mildly enlarged. 12. LA is midly dilated 29-33ml/m2. 13. The right atrium is normal in size. 14. Aortic valve is trileaflet and is mildly thickened. 15. Mild mitral annular calcification present. CRM BUSINESS ANALYST: Mayte Green RDCS
[2016-09-04 11:53] LABS: Glucose,Whole Blood 134 mg/dL (75-99)
[2016-09-04] MEDS ORDERED: SODIUM FERRIC GLUCONAT-SUCROSE 125 MG in SODIUM CHLORIDE 0.9% 100 ML IVPB ONE (15:00)
--- NOTE | 2016-09-04 15:21 | P.PN ---
Subjective This a pleasant 64-year-old female recently transferred to Dr Lerner's practice. She has underlying history off CK D stage III hypertension diabetes mellitus rheumatoid arthritis on chronic prednisone. Chronic protein malnutrition, chronic pain She had a prior C. diff toxin positive in January 2015 She is chronically on [address] Marlow secondary to rheumatoid arthritis. She has had increasing difficulty For the past 2-3 weeks with an upper respiratory sinus congestion and this has subsequently gotten worse with purulence and few days prior to admission she had some fever and chills. She has been exposed to the stomach flu lately not influenza virus, at home. Patient denies any significant diarrhea however she has some pasty stools dark green without any melena. Patient did not receive any antibiotics prior to admission patient cannot take any NSAIDs secondary to CK D She also has lack of appetite nausea shortness of breath no significant wheezing. She also has increasing weakness no recent falls and syncope no chest pain no palpitations. In the emergency room She was noted to be severely anemic with a hemoglobin of 6.7 from a previous of 9.1 a year ago. She follows normally with me for lab draws at [facility]. He would try to retrieve those numbers however she has occult positive stools consult were made with Dr. Quigley from general surgery. She was on Procrit in 2013 which was discontinued as the hemoglobin was nearly 12. She received 1 unit packed red blood cell in the floor with additional 2 units as given for hemoglobin of 6.7 and 6.7 after transfusion. Influenza test in the emergency room is negative for PCR urinalysis shows some pyuria RBC 16 WBC 32 chest x-ray showed diffuse interstitial vascular prominence which is increased from previous. 09/04: Echocardiogram reveals EF of 55-60%, mild mitral regurgitation, mild tricuspid regurgitation, echo free space may represent effusion or pericardial fat pad, borderline concentric left hypertrophy. White count 3.7, hemoglobin 9.2 and platelet count 94. Ferrlecit ordered 1 Lovenox discontinued due to thrombocytopenia.IV fluids changed to saline lock. Prandin dosing adjusted due to hypoglycemia. Patient states she has not had diarrhea since yesterday. Objective - Vital Signs Vital signs: Vital Signs Temp 98 F 09/04/16 09:21 Pulse 74 09/04/16 09:21 Resp 18 09/04/16 09:21 BP 126/66 09/04/16 09:21 Pulse Ox 97 09/04/16 08:58 Intake & Output 09/03/16 09/04/16 09/04/16 18:59 06:59 18:59 Intake Total 970 2330 240 Output Total 1 3 Balance 969 2327 240 Weight 77 kg Intake: IV 1200 Sodium Chloride 0.9% 1, 1200 000 ml @ 100 mls/hr IV . Q10H [facility] Rx#:[id number] Intake, IV Titration 50 Amount cefTRIAXone 1,000 mg In 50 Sodium Chloride 0.9% 50 ml @ 100 mls/hr IVPB Q24HR [facility] Rx#:[id number] Oral 350 1080 240 Blood Product 620 Rc As-1 Unit 310 [id number] Rc As-1 Unit 310 [id number] Output: Stool 1 3 Other: Voiding Method Diaper Diaper # Voids 5 - Exam General appearance: cooperative, no acute distress - EENT Eyes: anicteric sclerae, EOMI, PERRLA ENT: NA/AT, normal oropharynx - Neck Neck: no lymphadenopathy, normal ROM, no other, no rigidity, no stridor, no thyromegaly - Respiratory Respiratory: bilateral: rales, negative: CTA, diminished, dullness, rhonchi, wheezing - Cardiovascular Rhythm: regular Heart sounds: normal: S1, S2 Abnormal Heart Sounds: no systolic murmur, no diastolic murmur, no rub, no S3 Gallop, no S4 Gallop, no click, no other - Gastrointestinal General gastrointestinal: normal bowel sounds, soft - Integumentary Integumentary: normal, normal turgor - Neurologic Neurologic: CNII-XII intact - Musculoskeletal Musculoskeletal: generalized weakness, strength equal bilaterally - Psychiatric Psychiatric: A&O x's 3, appropriate affect, intact judgment & insight - Labs CBC & Chem 7: 09/04/16 05:37 09/03/16 08:56 Labs: Abnormal Lab Results - Last 24 Hours (Table) 09/03/16 09/03/16 09/03/16 Range/Units 11:52 12:11 16:52 WBC (3.8-10.6) k/uL RBC (3.80-5.40) m/uL Hgb (11.4-16.0) gm/dL Hct (34.0-46.0) % Plt Count (150-450) k/uL Lymphocytes # (1.0-4.8) k/uL POC Glucose (mg/dL) 57 L 60 L 161 H (75-99) mg/dL Iron (37-170) ug/dL TIBC (265-497) ug/dL % Saturation (20-50) % Ferritin (11-264) ng/mL 09/03/16 09/03/16 09/04/16 Range/Units 20:38 23:45 05:37 WBC (3.8-10.6) k/uL RBC 2.81 L (3.80-5.40) m/uL Hgb 8.8 L D (11.4-16.0) gm/dL Hct 27.1 L (34.0-46.0) % Plt Count 108 L (150-450) k/uL Lymphocytes # 0.4 L (1.0-4.8) k/uL POC Glucose (mg/dL) 127 H (75-99) mg/dL Iron 20 L (37-170) ug/dL TIBC 214 L (265-497) ug/dL % Saturation 9.3 L (20-50) % Ferritin 613 H (11-264) ng/mL 09/04/16 09/04/16 09/04/16 Range/Units 05:37 06:00 06:29 WBC 3.7 L (3.8-10.6) k/uL RBC 2.94 L (3.80-5.40) m/uL Hgb 9.2 L (11.4-16.0) gm/dL Hct 28.8 L (34.0-46.0) % Plt Count 94 L (150-450) k/uL Lymphocytes # 0.5 L (1.0-4.8) k/uL POC Glucose (mg/dL) 61 L 71 L (75-99) mg/dL Iron (37-170) ug/dL TIBC (265-497) ug/dL % Saturation (20-50) % Ferritin (11-264) ng/mL Assessment and Plan Plan: 1. Sepsis with SIRS, suspected pneumonia with underlying low-grade pyuria UTIs also suspected, patient is on IV Rocephin with cultures to be obtained from the urine and blood, influenza test is negative patient would need a sputum culture and sensitivity as well 2 Acute blood loss anemia on chronic anemia chronic prednisone A GI source is suspected, patient is in consultation by Dr. Quigley from general surgery with possible EGD in the immediate future. Patient had a colonoscopy performed by Dr. Camacho close year ago with no significant pathology. Patient received a total of 3 units to date back red blood cells she would need iron infusion should her iron stores below and IV Protonix with gastritis treatment as she is on chronic prednisone . 3. Diabetes mellitus type 2. Changed to Prandin 0.5 mg with breakfast and lunch and 0.25 at supper, continue insulin sliding scale 4. Chronic diastolic heart failure. Echocardiogram as above, she is on Zaroxolyn 2.5 mg every 48 hours IV Lasix 40 mg daily8 hours 5. CK D stage III, nephrotoxins will be avoided, including hypotension, protect for hemodynamic instability, patient would be monitored for her renal function test and azotemia secondary to GI bleed 6. Rheumatoid arthritis for which she is currently was on oral prednisone she is not on any biological disease modifying agents and 7. Chronic anemia of chronic disease . Iron levels will be obtained might need iron infusion against aranesp down the line once infection clears out 8. Hypothyroidism for which she is currently on Cytomel 5 g we'll going to add levothyroxine 25 g 9. Hypertension on lisinopril 20 and milligrams daily, Zaroxolyn 2.5 mg every 48 hours and Lasix 10. Hyperlipidemia hold zocor with elev cpk 11. History of Clostridium difficile January 2015 probiotics will be started while on antibiotic 12. Code status: full, no prolonged intubation GI prophylaxis and DVT prophylaxis with Protonix 40 mg twice a day, no pharmaceutical prophylaxis secondary to GI bleed. Patient has CHAUNCEY hose and SCDs Discharge plan: home with homecare Impression and plan of care have been directed as dictated by the signing physician. Nadja Kaur nurse practitioner acting as scribe for signing physician. Time with Patient: Greater than 30
[2016-09-04 16:52] LABS: Glucose,Whole Blood 251 mg/dL (75-99)
[2016-09-04] MEDS ORDERED: REPAGLINIDE 1 MG TAB PO SCH (17:30)
--- NOTE | 2016-09-04 17:46 | P.PN ---
Subjective Principal diagnosis: Anemia Patient is a 66-year-old female with medical history significant for chronic kidney disease, admitted with complaints of fatigue and found to be anemic with a hemoglobin of 6.7 and hemoccult blood positive. Patient is status post transfusion with 3 units of PRBC and today's hemoglobin has increased to 9.2. Denies nausea, vomiting, or abdominal pain. Patient has not had a bowel movement today. Tolerating regular diet. Objective - Vital Signs Vital signs: Vital Signs Temp 98.4 F 09/04/16 15:53 Pulse 68 09/04/16 15:53 Resp 18 09/04/16 15:53 BP 143/67 09/04/16 15:53 Pulse Ox 97 09/04/16 12:33 Intake & Output 09/03/16 09/04/16 09/04/16 18:59 06:59 18:59 Intake Total 970 2330 840 Output Total 1 3 500 Balance 969 2327 340 Weight 77 kg Intake: IV 1200 500 Sodium Chloride 0.9% 1, 1200 500 000 ml @ 100 mls/hr IV . Q10H [facility] Rx#:[id number] Intake, IV Titration 50 100 Amount Sodium Ferric Gluconat- 100 Sucrose 125 mg In Sodium Chloride 0.9% 100 ml @ 100 mls/hr IVPB ONCE ONE Rx#:[id number] cefTRIAXone 1,000 mg In 50 Sodium Chloride 0.9% 50 ml @ 100 mls/hr IVPB Q24HR [facility] Rx#:[id number] Oral 350 1080 240 Blood Product 620 Rc As-1 Unit 310 [id number] Rc As-1 Unit 310 [id number] Output: Urine 500 Stool 1 3 Other: Voiding Method Diaper Diaper # Voids 5 1 - Exam GENERAL: Pt awake and alert, well-nourished, and in no acute distress. LUNGS: Breath sounds diminished to auscultation bilaterally. No wheezes, rales , or rhonchi. HEART: Heart S1, S2, no S3 or S4. Regular rate and rhythm. No murmurs, rubs or gallops. ABDOMEN: Soft, nontender, nondistended, normoactive bowel sounds. No guarding, no rebound. No masses or organomegaly appreciated. NEUROLOGICAL: Pt oriented x 3. - Labs CBC & Chem 7: 09/04/16 05:37 09/03/16 08:56 Labs: Abnormal Lab Results - Last 24 Hours (Table) 09/03/16 09/03/16 09/04/16 Range/Units 20:38 23:45 05:37 WBC (3.8-10.6) k/uL RBC 2.81 L (3.80-5.40) m/uL Hgb 8.8 L D (11.4-16.0) gm/dL Hct 27.1 L (34.0-46.0) % Plt Count 108 L (150-450) k/uL Lymphocytes # 0.4 L (1.0-4.8) k/uL POC Glucose (mg/dL) 127 H (75-99) mg/dL Iron 20 L (37-170) ug/dL TIBC 214 L (265-497) ug/dL % Saturation 9.3 L (20-50) % Ferritin 613 H (11-264) ng/mL 09/04/16 09/04/16 09/04/16 Range/Units 05:37 06:00 06:29 WBC 3.7 L (3.8-10.6) k/uL RBC 2.94 L (3.80-5.40) m/uL Hgb 9.2 L (11.4-16.0) gm/dL Hct 28.8 L (34.0-46.0) % Plt Count 94 L (150-450) k/uL Lymphocytes # 0.5 L (1.0-4.8) k/uL POC Glucose (mg/dL) 61 L 71 L (75-99) mg/dL Iron (37-170) ug/dL TIBC (265-497) ug/dL % Saturation (20-50) % Ferritin (11-264) ng/mL 09/04/16 09/04/16 Range/Units 11:38 16:50 WBC (3.8-10.6) k/uL RBC (3.80-5.40) m/uL Hgb (11.4-16.0) gm/dL Hct (34.0-46.0) % Plt Count (150-450) k/uL Lymphocytes # (1.0-4.8) k/uL POC Glucose (mg/dL) 134 H 251 H (75-99) mg/dL Iron (37-170) ug/dL TIBC (265-497) ug/dL % Saturation (20-50) % Ferritin (11-264) ng/mL Microbiology - Last 24 Hours (Table) 09/04/16 06:30 Gram Stain - Preliminary Sputum Assessment and Plan Plan: Impression: 1. Acute blood loss anemia with history of chronic anemia. Hemoglobin improved from 6.7 to 9.2 after transfusion of 3 units of packed cells. Plan: 1. Continue to monitor hemoglobin. Patient will undergo EGD when medically stable. The above impression and plan have been discussed and directed by Dr. Camacho. Rowan ESPARZA acting as scribe for Dr. Camacho.
[2016-09-04] MEDS: LISINOPRIL 10 MG TAB PO SCH (20:38)
[2016-09-04] MEDS: FERROUS SULFATE 325 MG TAB PO SCH (20:38)
[2016-09-04 20:51] LABS: Glucose,Whole Blood 243 mg/dL (75-99)
[2016-09-04] MEDS ORDERED: DEXTROSE 50%-WATER 50 ML SYRINGE IVP ONE (21:04)
[2016-09-04] MEDS: ATORVASTATIN 20 MG TAB PO SCH (21:16)
[2016-09-04 23:08] LABS: Creatine Kinase MB 0.7 ng/mL (0.0-2.4); Troponin I 0.022 ng/mL (0.000-0.034)
[2016-09-05] MEDS: FUROSEMIDE 10 MG/ML 4 ML VIAL IV SCH ×2 (00:27→08:12)
[2016-09-05 03:40] LABS: Basophils % (A) 1 %; CH 31.2; CHCM 32.5; Eosinophils # (A) 0.1 k/uL (0-0.7); Eosinophils % (A) 3 %; HCT 29.2 % (34.0-46.0); HDW 3.35; HGB 9.4 gm/dL (11.4-16.0); Hypochromasia Slight; Luc % (Auto) 3; Lymphocytes # (A) 0.5 k/uL (1.0-4.8); Lymphocytes % (A) 16 %; MCH 31.1 pg (25.0-35.0); MCHC 32.2 g/dL (31.0-37.0); MCV 96.9 fL (80.0-100.0); Mean Platelet Volume 8.8; Monocytes # (A) 0.2 k/uL (0-1.0); Monocytes % (A) 8 %; Neutrophils % (A) 70 %; RBC 3.01 m/uL (3.80-5.40); RDW 14.9 % (11.5-15.5); WBC 2.9 k/uL (3.8-10.6); WBC (Perox) 3.09
[2016-09-05] MEDS: HYDROmorphone 1 MG/ML 1 ML SYRINGE IVP PRN ×3 (03:40→13:56)
[2016-09-05 03:56] LABS: Calcium 8.2 mg/dL (8.4-10.2); Potassium 4.6 mmol/L (3.5-5.1); Total Bilirubin 0.2 mg/dL (0.2-1.3); Total Protein 4.7 g/dL (6.3-8.2)
[2016-09-05 04:21] LABS: Creatine Kinase MB 0.6 ng/mL (0.0-2.4); Troponin I 0.027 ng/mL (0.000-0.034)
[2016-09-05 06:13] LABS: Glucose,Whole Blood 99 mg/dL (75-99)
[2016-09-05] MEDS: CARVEDILOL 12.5 MG TAB PO SCH (06:45)
[2016-09-05] MEDS: LEVOTHYROXINE 25 MCG TAB PO SCH (06:45)
[2016-09-05] MEDS ORDERED: REPAGLINIDE 1 MG TAB PO SCH ×2 (07:30→12:30)
[2016-09-05] MEDS: MORPHINE SULFATE ER 15 MG TABLET PO SCH (08:12)
[2016-09-05] MEDS: GABAPENTIN 100 MG CAP PO SCH (08:13)
[2016-09-05] MEDS: METOLAZONE 2.5 MG TAB PO SCH (08:13)
[2016-09-05] MEDS: LIOTHYRONINE SODIUM 5 MCG TAB PO SCH (08:13)
[2016-09-05] MEDS: CALCITRIOL 0.25 MCG CAP PO SCH (08:14)
[2016-09-05] MEDS: predniSONE 10 MG TAB PO SCH (08:14)
[2016-09-05] MEDS: LACTOBACILLUS ACIDOPH & BULGAR 1 EACH PACKET PO SCH (09:33)
[2016-09-05] MEDS: PANTOPRAZOLE 40 MG TABLET PO SCH (10:02)
[2016-09-05 10:10] VITALS: RESP 18; TEMP 98.5
[2016-09-05 10:56] LABS: Creatine Kinase MB 0.5 ng/mL (0.0-2.4); Troponin I 0.026 ng/mL (0.000-0.034)
[2016-09-05 12:03] VITALS: BP 129/65; PULSE 75
[2016-09-05 12:33] LABS: Glucose,Whole Blood 166 mg/dL (75-99)
--- NOTE | 2016-09-05 13:44 | P.DS ---
Providers Date of admission: 09/02/16 17:45 Expected date of discharge: 09/05/16 Attending physician: Fay Lerner Primary care physician: Fayoral Lerner [facility] Course: This a pleasant 64-year-old female recently transferred to Dr Lerner's practice. She has underlying history off CK D stage III hypertension diabetes mellitus rheumatoid arthritis on chronic prednisone. Chronic protein malnutrition, chronic pain She had a prior C. diff toxin positive in January 2015 She is chronically on [address] Marlow secondary to rheumatoid arthritis. She has had increasing difficulty For the past 2-3 weeks with an upper respiratory sinus congestion and this has subsequently gotten worse with purulence and few days prior to admission she had some fever and chills. She has been exposed to the stomach flu lately not influenza virus, at home. Patient denies any significant diarrhea however she has some pasty stools dark green without any melena. Patient did not receive any antibiotics prior to admission patient cannot take any NSAIDs secondary to CK D She also has lack of appetite nausea shortness of breath no significant wheezing. She also has increasing weakness no recent falls and syncope no chest pain no palpitations. In the emergency room She was noted to be severely anemic with a hemoglobin of 6.7 from a previous of 9.1 a year ago. She follows normally with me for lab draws at [facility]. He would try to retrieve those numbers however she has occult positive stools consult were made with Dr. Quigley from general surgery. She was on Procrit in 2013 which was discontinued as the hemoglobin was nearly 12. She received 1 unit packed red blood cell in the floor with additional 2 units as given for hemoglobin of 6.7 and 6.7 after transfusion. Influenza test in the emergency room is negative for PCR urinalysis shows some pyuria RBC 16 WBC 32 chest x-ray showed diffuse interstitial vascular prominence which is increased from previous. 09/04: Echocardiogram reveals EF of 55-60%, mild mitral regurgitation, mild tricuspid regurgitation, echo free space may represent effusion or pericardial fat pad, borderline concentric left hypertrophy. White count 3.7, hemoglobin 9.2 and platelet count 94. Ferrlecit ordered 1 Lovenox discontinued due to thrombocytopenia.IV fluids changed to saline lock. Prandin dosing adjusted due to hypoglycemia. Patient states she has not had diarrhea since yesterday. 09/05: Patient is anxious to be discharged home. Hemoglobin is 9.4, BUN 55 and creatinine 1.8. Patient has been instructed to not take Lasix tomorrow and resume on . Urine culture has identified E. coli pansensitive and patient will be discharged on Keflex for 7 day course. Discharge diagnoses: 1. Sepsis with SIRS, suspected pneumonia with underlying UTI 2 Acute blood loss anemia on chronic anemia chronic prednisone A GI source is suspected 3. Diabetes mellitus type 2. 4. Chronic diastolic heart failure. 5. CKD stage III 6. Rheumatoid arthritis 7. Chronic anemia of chronic disease 8. Hypothyroidism 9. Hypertension 10. Hyperlipidemia 11. History of Clostridium difficile January 2015 Discharge plan: home with [facility] Impression and plan of care have been directed as dictated by the signing physician. Nadja Kaur nurse practitioner acting as scribe for signing physician. Patient Condition at Discharge: Good Plan - Discharge Summary New Discharge Prescriptions: Cephalexin [Keflex] 500 mg PO Q8HR #21 cap Discharge Medication List Omeprazole [PriLOSEC] 20 mg PO BID 02/20/14 [History] predniSONE 10 mg PO DAILY 02/20/14 [History] Cyanocobalamin [Vitamin B-12] 2,500 mcg PO DAILY 08/19/14 [History] Ergocalciferol [Vitamin D2 (DRISDOL)] 50,000 unit PO WE 08/19/14 [History] Ferrous Sulfate [Iron (65 MG Elemental)] 325 mg PO HS 08/19/14 [History] Furosemide 60 mg PO QAM 08/19/14 [History] Ondansetron Odt [Zofran ODT] 4 mg PO Q8HR PRN #15 tab 01/04/15 [Rx] Calcitriol 0.25 mcg PO SUTUFR 01/07/15 [History] Liothyronine Sodium [Cytomel] 5 mcg PO DAILY 01/07/15 [History] Levothyroxine Sodium [Synthroid] 25 mcg PO DAILY@0630 tab 01/12/15 [Rx] ALPRAZolam [Xanax] 0.25 mg PO BID PRN 09/02/16 [History] Carvedilol [Coreg] 25 mg PO BID 09/02/16 [History] Enalapril [Vasotec] 5 mg PO HS 09/02/16 [History] Gabapentin [Neurontin] 100 mg PO TID 09/02/16 [History] Magnesium 200 mg PO DAILY 09/02/16 [History] Metolazone [Zaroxolyn] 2.5 mg PO Q48H 09/02/16 [History] Morphine Sulfate ER [Ms Contin] 15 mg PO Q12HR 09/02/16 [History] Simvastatin [Zocor] 40 mg PO HS 09/02/16 [History] Cephalexin [Keflex] 500 mg PO Q8HR #21 cap 09/05/16 [Rx] Lactobacillus Acidoph & Bulgar [Lactinex] 1 each PO BID packet 09/05/16 [Rx] Repaglinide [Prandin] 0.25 mg PO AC-SUPPER tab 09/05/16 [Rx] Repaglinide [Prandin] 0.5 mg PO 1230 tab 09/05/16 [Rx] Repaglinide [Prandin] 1 mg PO 0730 tab 09/05/16 [Rx] Follow up Appointment(s)/Referral(s): Fay Lerner MD [Primary Care Provider] - 1 Week (as already scheduled for Sunday) Pedro Camacho MD [STAFF PHYSICIAN] - 3 Weeks Activity/Diet/Wound Care/Special Instructions: No Lasix tomorrow. Resume on at usual dose. Discharge Disposition: HOME SELF-CARE
[2016-09-05] MEDS ORDERED: CEPHALEXIN 250 MG CAP PO SCH (16:00)
[2016-09-05] MEDS ORDERED: CEPHALEXIN 500 MG CAP PO SCH (16:00)
[2016-09-06] MEDS ORDERED: REPAGLINIDE 1 MG TAB PO SCH (07:30)
[2016-09-06] MEDS ORDERED: ERGOCALCIFEROL 50,000 UNIT CAP PO SCH (09:00)
== END 2016-09-05 14:36 | disposition home health service (06) | DRG 871 ==
LOC: EC 13:39 → UNDOADMOB 15:42 → OBSVTOIN 15:42 → 6SEL 15:42 → OBSVTOIN 17:45 → INTOOBSV 17:45 → UNDODISIN 09-05 14:36
PROVIDERS: ADMIT Family Medicine; ATTEND Family Medicine
PROC: 30233N1 Transfusion of Nonautologous Red Blood Cells into Peripheral Vein, Percutaneous Approach (ICD-10-PCS; principal; 2016-09-02)
DX: A41.9 Sepsis, unspecified organism (principal); J18.9 Pneumonia, unspecified organism; I13.0 Hypertensive heart and chronic kidney disease with heart failure and stage 1 through stage 4 chronic kidney disease, or unspecified chronic kidney disease; N17.9 Acute kidney failure, unspecified; E46 Unspecified protein-calorie malnutrition; D62 Acute posthemorrhagic anemia; I50.32 Chronic diastolic (congestive) heart failure; K92.2 Gastrointestinal hemorrhage, unspecified; N39.0 Urinary tract infection, site not specified; E11.649 Type 2 diabetes mellitus with hypoglycemia without coma; E11.22 Type 2 diabetes mellitus with diabetic chronic kidney disease; N18.3 Chronic kidney disease, stage 3 (moderate); E86.0 Dehydration; D63.8 Anemia in other chronic diseases classified elsewhere; E03.9 Hypothyroidism, unspecified; E78.5 Hyperlipidemia, unspecified; F41.9 Anxiety disorder, unspecified; M06.9 Rheumatoid arthritis, unspecified; G89.29 Other chronic pain; E55.9 Vitamin D deficiency, unspecified; I08.1 Rheumatic disorders of both mitral and tricuspid valves; Z79.52 Long term (current) use of systemic steroids; Z79.899 Other long term (current) drug therapy; Z88.5 Allergy status to narcotic agent; Z88.2 Allergy status to sulfonamides; Z82.49 Family history of ischemic heart disease and other diseases of the circulatory system
CPT/HCPCS: 36415; 71020; 80048; 80053; 81001; 82272; 82550; 82553; 82728; 83540; 83550; 83605; 83735; 83880; 84100; 84484; 85025; 85027; 85610; 85730; 86850; 86900; 86901; 86920; 87040; 87070; 87077; 87086; 87186; 87205; 87502; 93005; 93306; 94760; 96361; 96365; 96375; 99291

== ENCOUNTER 2016-09-24 18:04 | Inpatient (IN) | payer MEDICARE ==
[2016-09-24] MEDS ORDERED: SODIUM CHLORIDE 0.9% 500 ML IV ONE (18:57)
[2016-09-24] MEDS ORDERED: SODIUM CHLORIDE 0.9% 1,000 ML IV SCH (19:00)
[2016-09-24 19:23] LABS: Glucose,Whole Blood 208 mg/dL (75-99)
[2016-09-24 19:35] LABS: Basophils % (A) 0 %; CH 30.6; CHCM 32.6; Eosinophils % (A) 1 %; HCT 32.5 % (34.0-46.0); HDW 2.88; HGB 10.6 gm/dL (11.4-16.0); Luc # (Auto) 0.18; Luc % (Auto) 3; Lymphocytes # (A) 0.8 k/uL (1.0-4.8); Lymphocytes % (A) 12 %; MCH 30.8 pg (25.0-35.0); MCHC 32.7 g/dL (31.0-37.0); MCV 94.5 fL (80.0-100.0); Mean Platelet Volume 7.8; Monocytes # (A) 0.4 k/uL (0-1.0); Monocytes % (A) 6 %; Neutrophils # (A) 5.5 k/uL (1.3-7.7); Neutrophils % (A) 79 %; RBC 3.45 m/uL (3.80-5.40); WBC 6.9 k/uL (3.8-10.6); WBC (Perox) 7.29
[2016-09-24] MEDS ORDERED: HYDROcodone/APAP 5-325MG 1 EACH TAB PO STA (19:35)
[2016-09-24] MEDS: ONDANSETRON 4 MG/2 ML VIAL IVP STA (19:42)
[2016-09-24 19:43] LABS: Prothrombin Time 9.9 sec (9.0-12.0)
[2016-09-24 19:47] LABS: Calcium 9.1 mg/dL (8.4-10.2); Potassium 5.9 mmol/L (3.5-5.1); Total Bilirubin 0.6 mg/dL (0.2-1.3); Total Protein 6.5 g/dL (6.3-8.2)
[2016-09-24 20:02] LABS: Partial Thromboplastin Time 21.4 sec (22.0-30.0)
--- NOTE | 2016-09-24 20:11 | XR ---
EXAMINATION TYPE: XR chest 2V DATE OF EXAM: 09/24/2016 7:39 PM COMPARISON: Chest x-ray September 03, 2016. HISTORY: History of recent pneumonia presents with nausea and vomiting with upper back pain for 4 day s. Chest pain per order. TECHNIQUE: Frontal and lateral views of the chest are obtained. FINDINGS: There is chronic parenchymal change without suspicious new focal air space opacity, pleura l effusion, or pneumothorax seen bilaterally. The cardiac silhouette size is enlarged. The osseous structures are demineralized. Cholecystectomy clips are noted on lateral view. IMPRESSION: Cardiomegaly and chronic parenchymal changes without acute pulmonary infiltrate. Cannot exclude CHF exacerbation in the appropriate clinical setting as the interstitial findings could refle ct a component of edema, clinical correlation advised.
[2016-09-24] MEDS ORDERED: DEXTROSE 50%-WATER 50 ML SYRINGE IVP STA (21:31)
[2016-09-24] MEDS ORDERED: FUROSEMIDE 10 MG/ML 4 ML VIAL IV STA (21:31)
[2016-09-24] MEDS ORDERED: CALCIUM GLUCONATE 1,000 MG in SODIUM CHLORIDE 0.9% 100 ML IVPB ONE (21:31)
[2016-09-24] MEDS ORDERED: INSULIN REGULAR 100 UNIT/ML VIAL IV ONE (21:31)
--- NOTE | 2016-09-24 21:36 | ED ---
Nausea/Vomiting/Diarrhea HPI - General Chief complaint: Nausea/Vomiting/Diarrhea Stated complaint: nvd Source: patient Mode of arrival: wheelchair Limitations: no limitations - History of Present Illness Initial comments: Patient is a 66-year-old female presents for evaluation for nausea and diarrhea over the last 4 days. Past medical surgical below. Patient was recently admitted for anemia and pneumonia with possible UTI. Completed a course of IV antibiotics and was not discharged home with any antibiotics. At the medications altered. Was given medications to help in diuresis. Was also given iron due to the anemia. Received blood transfusions and was discharged home with a hemoglobin of 9 range per the patient. Her last 4 days the patient' s developed some epigastric discomfort with some nausea and some black diarrhea. She is not on any aspirin or blood thinners at home. She takes Zofran at home which helped with her nausea this morning. She also takes omeprazole and Nexium but has not helped with her nausea. She stated that the diarrhea started this past . She started vomiting on Sunday. She improved on Sunday. - Related Data Home Medications Medication Instructions Recorded Confirmed Omeprazole [PriLOSEC] 20 mg PO BID 02/20/14 09/24/16 predniSONE 10 mg PO DAILY 02/20/14 09/24/16 Cyanocobalamin [Vitamin B-12] 2,500 mcg PO DAILY 08/19/14 09/24/16 Ergocalciferol [Vitamin D2 50,000 unit PO WE 08/19/14 09/24/16 (DRISDOL)] Ferrous Sulfate [Iron (65 MG 325 mg PO HS 08/19/14 09/24/16 Elemental)] Furosemide 60 mg PO QAM 08/19/14 09/24/16 Calcitriol 0.25 mcg PO SUTUFR 01/07/15 09/24/16 Liothyronine Sodium [Cytomel] 5 mcg PO DAILY 01/07/15 09/24/16 ALPRAZolam [Xanax] 0.25 mg PO BID PRN 09/02/16 09/24/16 Carvedilol [Coreg] 25 mg PO BID 09/02/16 09/24/16 Enalapril [Vasotec] 5 mg PO HS 09/02/16 09/24/16 Gabapentin [Neurontin] 100 mg PO TID 09/02/16 09/24/16 Magnesium 200 mg PO HS 09/02/16 09/24/16 Metolazone [Zaroxolyn] 2.5 mg PO Q48H 09/02/16 09/24/16 Morphine Sulfate ER [Ms Contin] 15 mg PO Q12HR 09/02/16 09/24/16 Simvastatin [Zocor] 40 mg PO HS 09/02/16 09/24/16 Lactobacillus Acidoph & Bulgar 1 packet PO BID 09/24/16 09/24/16 [Lactinex] Repaglinide [Prandin] 0.5 mg PO DAILY@1230 09/24/16 09/24/16 Repaglinide [Prandin] 1 mg PO DAILY@0730 09/24/16 09/24/16 Previous Rx's Medication Instructions Recorded Ondansetron Odt [Zofran ODT] 4 mg PO Q8HR PRN #15 tab 01/04/15 Levothyroxine Sodium [Synthroid] 25 mcg PO DAILY@0630 tab 01/12/15 Repaglinide [Prandin] 0.25 mg PO AC-SUPPER tab 09/05/16 Allergies Allergy/AdvReac Type Severity Reaction Status Date / Time codeine Allergy Rash/Hives Verified 09/24/16 19:12 Sulfa (Sulfonamide Allergy Rash/Hives Verified 09/24/16 19:12 Antibiotics) gold Allergy Unknown Uncoded 09/24/16 19:12 Review of Systems ROS Statement: Those systems with pertinent positive or pertinent negative responses have been documented in the HPI. ROS Other: All systems not noted in ROS Statement are negative. Past Medical History Past Medical History: Hyperlipidemia, Renal Disease, Thyroid Disorder Additional Past Medical History / Comment(s): low vitamin d levels which caused renal deficiency, parathyroid overactive related to low vit d levels, chronic prednisone secondary to RA followed by Dr. Marlow, ANEMIA,COMPRESSION FX L1, PAST FALL. of lithiasis History of Any Multi-Drug Resistant Organisms: None Reported Past Surgical History: Orthopedic Surgery Additional Past Surgical History / Comment(s): right knee TKA 2, carpel tunnel , CYST REMOVED (NECK) AGE 6 Past Anesthesia/Blood Transfusion Reactions: No Reported Reaction Past Psychological History: Anxiety Smoking Status: Never smoker Past Alcohol Use History: None Reported Past Drug Use History: None Reported - Past Family History Mother Additional Family Medical History / Comment(s): addisons disease Father Family Medical History: Hypertension General Exam Limitations: no limitations General appearance: alert, in no apparent distress, other (Appears chronically ill.) Head exam: Present: atraumatic, normocephalic, normal inspection Eye exam: Present: normal appearance, PERRL, EOMI. Absent: scleral icterus, conjunctival injection, periorbital swelling ENT exam: Present: normal exam, mucous membranes dry Neck exam: Present: normal inspection. Absent: tenderness, meningismus, lymphadenopathy Respiratory exam: Present: normal lung sounds bilaterally. Absent: respiratory distress, wheezes, rales, rhonchi, stridor Cardiovascular Exam: Present: regular rate, normal rhythm, normal heart sounds. Absent: systolic murmur, diastolic murmur, rubs, gallop, clicks GI/Abdominal exam: Present: soft, normal bowel sounds, other (Abdomen is soft and nontender. No point tenderness elicited. Negative Merritt sign. Negative McBurney sign. No peritoneal signs.). Absent: distended, tenderness, guarding , rebound, rigid Extremities exam: Present: normal inspection, full ROM, normal capillary refill. Absent: tenderness, pedal edema, joint swelling, calf tenderness Back exam: Present: normal inspection Neurological exam: Present: alert, oriented X3, CN II-XII intact Psychiatric exam: Present: normal affect, normal mood Skin exam: Present: warm, dry, intact, normal color. Absent: rash Course Vital Signs 09/24/16 18:26 Temperature 97.2 F L Pulse Rate 86 Respiratory 18 Rate Blood Pressure 119/58 O2 Sat by Pulse 98 Oximetry Medical Decision Making - Medical Decision Making Patient presents for evaluation for nausea vomiting and diarrhea. Recently admitted for anemia. Patient states that she is having black stools. We'll order a fecal occult with basic labs, troponin, two-view chest x-ray, type and screen. Small 500 mL bolus with Zofran. -Laboratory findings as below. Hemoglobin continues to improve. Fecal occult negative. Black stool likely secondary to iron. Significant renal failure when compared to previous labs. BUN 111. Creatinine 2.7. Previous in the 50s for BUN and 1.7 range from creatinine. Recent increase in lasix/metolazone. Two- view chest x-ray revealed cardiomegaly with signs of fluid overload. Clinically appears dry though. Potassium 5.9. Reviewed EKG which revealed sinus rhythm at 79. MN 166. QRS 80. QTc 440. T waves are somewhat peaked a large and change from previous EKG. Ordered 10 units of insulin, an amp of D50 to be given at the same time, calcium gluconate. Discussed with - agrees with observation. Recommending holding any Lasix/diuretics. Cardiac monitoring. No further orders. - Lab Data Result diagrams: 09/24/16 19:10 09/24/16 19:10 Lab Results 09/24/16 09/24/16 09/24/16 Range/Units 19:10 19:10 19:10 WBC 6.9 (3.8-10.6) k/uL RBC 3.45 L (3.80-5.40) m/uL Hgb 10.6 L (11.4-16.0) gm/dL Hct 32.5 L (34.0-46.0) % MCV 94.5 (80.0-100.0) fL MCH 30.8 (25.0-35.0) pg MCHC 32.7 (31.0-37.0) g/dL RDW 14.0 (11.5-15.5) % Plt Count 158 (150-450) k/uL Neutrophils % 79 % Lymphocytes % 12 % Monocytes % 6 % Eosinophils % 1 % Basophils % 0 % Neutrophils # 5.5 (1.3-7.7) k/uL Lymphocytes # 0.8 L (1.0-4.8) k/uL Monocytes # 0.4 (0-1.0) k/uL Eosinophils # 0.0 (0-0.7) k/uL Basophils # 0.0 (0-0.2) k/uL PT (9.0-12.0) sec INR (<1.1) APTT (22.0-30.0) sec Sodium 141 (137-145) mmol/L Potassium 5.9 H (3.5-5.1) mmol/L Chloride 102 (98-107) mmol/L Carbon Dioxide 27 (22-30) mmol/L Anion Gap 12 mmol/L BUN 111 H* (7-17) mg/dL Creatinine 2.78 H (0.52-1.04) mg/dL Est GFR (MDRD) Af Amer 21 (>60 ml/min/1.73 sqM) Est GFR (MDRD) Non-Af 17 (>60 ml/min/1.73 sqM) Glucose 210 H (74-99) mg/dL POC Glucose (mg/dL) (75-99) mg/dL POC Glu Pan Shover ID Calcium 9.1 (8.4-10.2) mg/dL Total Bilirubin 0.6 (0.2-1.3) mg/dL AST 23 (14-36) U/L ALT 32 (9-52) U/L Alkaline Phosphatase 150 H (38-126) U/L Troponin I (0.000-0.034) ng/mL NT-Pro-B Natriuret Pep pg/mL Total Protein 6.5 (6.3-8.2) g/dL Albumin 3.5 (3.5-5.0) g/dL Stool Occult Blood (Negative) Blood Type O Positive Blood Type Recheck No Antibody Screen NEGATIVE Spec Expiration Date 09/27/2016 - 230909/24/16 09/24/16 09/24/16 Range/Units 19:10 19:10 19:10 WBC (3.8-10.6) k/uL RBC (3.80-5.40) m/uL Hgb (11.4-16.0) gm/dL Hct (34.0-46.0) % MCV (80.0-100.0) fL MCH (25.0-35.0) pg MCHC (31.0-37.0) g/dL RDW (11.5-15.5) % Plt Count (150-450) k/uL Neutrophils % % Lymphocytes % % Monocytes % % Eosinophils % % Basophils % % Neutrophils # (1.3-7.7) k/uL Lymphocytes # (1.0-4.8) k/uL Monocytes # (0-1.0) k/uL Eosinophils # (0-0.7) k/uL Basophils # (0-0.2) k/uL PT 9.9 (9.0-12.0) sec INR 1.0 (<1.1) APTT 21.4 L (22.0-30.0) sec Sodium (137-145) mmol/L Potassium (3.5-5.1) mmol/L Chloride (98-107) mmol/L Carbon Dioxide (22-30) mmol/L Anion Gap mmol/L BUN (7-17) mg/dL Creatinine (0.52-1.04) mg/dL Est GFR (MDRD) Af Amer (>60 ml/min/1.73 sqM) Est GFR (MDRD) Non-Af (>60 ml/min/1.73 sqM) Glucose (74-99) mg/dL POC Glucose (mg/dL) (75-99) mg/dL POC Glu Pan Shover ID Calcium (8.4-10.2) mg/dL Total Bilirubin (0.2-1.3) mg/dL AST (14-36) U/L ALT (9-52) U/L Alkaline Phosphatase (38-126) U/L Troponin I <0.012 (0.000-0.034) ng/mL NT-Pro-B Natriuret Pep 1390 pg/mL Total Protein (6.3-8.2) g/dL Albumin (3.5-5.0) g/dL Stool Occult Blood (Negative) Blood Type Blood Type Recheck Antibody Screen Spec Expiration Date 09/24/16 09/24/16 Range/Units 19:11 19:23 WBC (3.8-10.6) k/uL RBC (3.80-5.40) m/uL Hgb (11.4-16.0) gm/dL Hct (34.0-46.0) % MCV (80.0-100.0) fL MCH (25.0-35.0) pg MCHC (31.0-37.0) g/dL RDW (11.5-15.5) % Plt Count (150-450) k/uL Neutrophils % % Lymphocytes % % Monocytes % % Eosinophils % % Basophils % % Neutrophils # (1.3-7.7) k/uL Lymphocytes # (1.0-4.8) k/uL Monocytes # (0-1.0) k/uL Eosinophils # (0-0.7) k/uL Basophils # (0-0.2) k/uL PT (9.0-12.0) sec INR (<1.1) APTT (22.0-30.0) sec Sodium (137-145) mmol/L Potassium (3.5-5.1) mmol/L Chloride (98-107) mmol/L Carbon Dioxide (22-30) mmol/L Anion Gap mmol/L BUN (7-17) mg/dL Creatinine (0.52-1.04) mg/dL Est GFR (MDRD) Af Amer (>60 ml/min/1.73 sqM) Est GFR (MDRD) Non-Af (>60 ml/min/1.73 sqM) Glucose (74-99) mg/dL POC Glucose (mg/dL) 208 H (75-99) mg/dL POC Glu Pan Shover ID Suki Hugo Calcium (8.4-10.2) mg/dL Total Bilirubin (0.2-1.3) mg/dL AST (14-36) U/L ALT (9-52) U/L Alkaline Phosphatase (38-126) U/L Troponin I (0.000-0.034) ng/mL NT-Pro-B Natriuret Pep pg/mL Total Protein (6.3-8.2) g/dL Albumin (3.5-5.0) g/dL Stool Occult Blood Negative (Negative) Blood Type Blood Type Recheck Antibody Screen Spec Expiration Date Disposition Clinical Impression: CHF (congestive heart failure), Acute renal failure, Hyperkalemia, Dehydration , Anemia Disposition: ADMITTED IP TO THIS [facility] Condition: Good Decision to Admit Reason: Admit from EC
[2016-09-24] MEDS ORDERED: NALOXONE 0.4 MG/ML 1 ML VIAL IV PRN (21:44)
[2016-09-24] MEDS: SODIUM CHLORIDE 0.9% 1,000 ML IV SCH (22:00)
[2016-09-24 23:00] LABS: Glucose,Whole Blood 149 mg/dL (75-99)
[2016-09-25 00:33] VITALS: BMI 25.7
[2016-09-25] MEDS ORDERED: MINERAL OIL-WHITE PETROLATUM CREAM 454 GM JAR TOPICAL PRN (01:04)
[2016-09-25] MEDS ORDERED: HYDROcodone/APAP 10-325MG 1 EACH TAB PO PRN (01:05)
[2016-09-25 01:22] LABS: Glucose,Whole Blood 112 mg/dL (75-99)
[2016-09-25] MEDS: HYDROcodone/APAP 10-325MG 1 EACH TAB PO PRN ×4 (01:25→22:49)
[2016-09-25] MEDS: metroNIDAZOLE 500 MG TAB PO SCH ×4 (02:00→22:51)
[2016-09-25] MEDS ORDERED: CALCIUM CARBONATE LIQUID 500 MG/5 ML CUP PO PRN (04:03)
[2016-09-25 07:06] LABS: Glucose,Whole Blood 76 mg/dL (75-99)
[2016-09-25] MEDS ORDERED: PANTOPRAZOLE 40 MG/10 ML VIAL IVP SCH (09:00)
[2016-09-25 12:28] LABS: Glucose,Whole Blood 77 mg/dL (75-99)
[2016-09-25] MEDS ORDERED: ONDANSETRON 4 MG/2 ML VIAL IVP PRN (13:19)
[2016-09-25] MEDS: ONDANSETRON 4 MG/2 ML VIAL IVP STA (13:23)
[2016-09-25] MEDS: MORPHINE SULFATE ER 15 MG TABLET PO SCH ×2 (14:12→22:53)
[2016-09-25] MEDS: ALPRAZolam 0.25 MG TAB PO PRN (14:13)
[2016-09-25 15:16] LABS: Hemoglobin A1C 6.9 % (4.2-6.1)
--- NOTE | 2016-09-25 16:50 | US ---
EXAMINATION TYPE: US kidneys/renal and bladder DATE OF EXAM: 09/25/2016 3:25 PM COMPARISON: on PACS CT abdomen and pelvis August 19, 2014. Renal ultrasound January 08, 2015. CLINICAL HISTORY: TEJA. CHF, ARF, pain EXAM MEASUREMENTS: Right Kidney: 9.5 x 4.6 x 4.6 cm Left Kidney: 10.2 x 4.5 x 5.3 cm TECHNOLOGIST IMPRESSION: Right Kidney: Echogenic. Cortical thinning seen. Prominent pyramids seen. No prominent cysts or le sions observed. Left Kidney: Prominent pyramids. Cortical thinning seen. No prominent cysts or lesions observed Bladder: Distended. Wall= 4.4 mm Left Jet seen Increased cortical echogenicity in both kidneys is redemonstrated. Finding presumed on basis of chron ic medical renal disease. There is no evidence for hydronephrosis at this point in time. No nephroli thiasis is seen. No suspicious masses are identified on images saved. The urinary bladder is anecho ic. Distal left jet identified. IMPRESSION: No hydronephrosis is evident bilaterally.
[2016-09-25 17:01] LABS: Glucose,Whole Blood 82 mg/dL (75-99)
[2016-09-25] MEDS: CARVEDILOL 12.5 MG TAB PO SCH ×2 (18:23→22:50)
[2016-09-25] MEDS: GABAPENTIN 100 MG CAP PO SCH ×2 (18:23→22:50)
[2016-09-25] MEDS: SODIUM CHLORIDE 0.9% 1,000 ML IV SCH (18:24)
[2016-09-25] MEDS: INSULIN LISPRO (humaLOG) 300 UNIT/3 ML VIAL SQ SCH ×2 (18:30→22:51)
--- NOTE | 2016-09-25 19:06 | P.HPIM ---
History of Present Illness H&P Date: 09/25/16 Chief Complaint: Nausea vomiting diarrhea This a pleasant 64-year-old female recently transferred to my practice. She has underlying history off CK D stage III hypertension diabetes mellitus rheumatoid arthritis on chronic prednisone. Chronic protein malnutrition, chronic pain She had a prior C. diff toxin positive in January 2015 She is chronically on [address] Marlow secondary to rheumatoid arthritis. She has had increasing difficulty For the past 3 days with nausea vomiting and diarrhea. She did not have any fever, she has some back pain no fever has some shakiness, there is no right-sided blood or black stools noted, patient denies any recent exposure to recent foreign travel or anyone with viral gastroenteritis No new medications initiated as an outpatient, Patient did not receive any antibiotics prior to admission patient cannot take any NSAIDs secondary to CK D She also has lack of appetite nausea shortness of breath no significant wheezing. She was last admitted on September 05 Secondary to severe anemia hemoglobin of 6.[address] Quigley, no intervention stated time also noted to have urinary tract infection and was discharged on cephalexin In the emergency room she was tested negative for Clostridium difficile A, however she came in with severe azotemia BUN of over 110, creatinine around 3 with a baseline of 1.48-1.8, patient currently requires IV hydration Past Medical History Past Medical History: Hyperlipidemia, Renal Disease, Thyroid Disorder Additional Past Medical History / Comment(s): low vitamin d levels which caused renal deficiency, parathyroid overactive related to low vit d levels, chronic prednisone secondary to RA followed by Dr. Marlow, ANEMIA,COMPRESSION FX L1, PAST FALL. of lithiasis, Csection, gall bladder History of Any Multi-Drug Resistant Organisms: None Reported Past Surgical History: Orthopedic Surgery Additional Past Surgical History / Comment(s): right knee TKA 2, carpel tunnel , CYST REMOVED (NECK) AGE 6 Past Anesthesia/Blood Transfusion Reactions: No Reported Reaction Past Psychological History: Anxiety Smoking Status: Never smoker Past Alcohol Use History: None Reported Past Drug Use History: None Reported - Past Family History Mother Additional Family Medical History / Comment(s): addisons disease Father Family Medical History: Hypertension Medications and Allergies Home Medications Medication Instructions Recorded Confirmed Type Omeprazole [PriLOSEC] 20 mg PO BID 02/20/14 09/24/16 History predniSONE 10 mg PO DAILY 02/20/14 09/24/16 History Cyanocobalamin [Vitamin B-12] 2,500 mcg PO DAILY 08/19/14 09/24/16 History Ergocalciferol [Vitamin D2 50,000 unit PO WE 08/19/14 09/24/16 History (DRISDOL)] Ferrous Sulfate [Iron (65 MG 325 mg PO HS 08/19/14 09/24/16 History Elemental)] Furosemide 60 mg PO QAM 08/19/14 09/24/16 History Calcitriol 0.25 mcg PO SUTUFR 01/07/15 09/24/16 History Liothyronine Sodium [Cytomel] 5 mcg PO DAILY 01/07/15 09/24/16 History ALPRAZolam [Xanax] 0.25 mg PO BID PRN 09/02/16 09/24/16 History Carvedilol [Coreg] 25 mg PO BID 09/02/16 09/24/16 History Enalapril [Vasotec] 5 mg PO HS 09/02/16 09/24/16 History Gabapentin [Neurontin] 100 mg PO TID 09/02/16 09/24/16 History Magnesium 200 mg PO HS 09/02/16 09/24/16 History Metolazone [Zaroxolyn] 2.5 mg PO Q48H 09/02/16 09/24/16 History Morphine Sulfate ER [Ms Contin] 15 mg PO Q12HR 09/02/16 09/24/16 History Simvastatin [Zocor] 40 mg PO HS 09/02/16 09/24/16 History Lactobacillus Acidoph & Bulgar 1 packet PO BID 09/24/16 09/24/16 History [Lactinex] Repaglinide [Prandin] 0.5 mg PO DAILY@1230 09/24/16 09/24/16 History Repaglinide [Prandin] 1 mg PO DAILY@0730 09/24/16 09/24/16 History HYDROcodone/APAP 10-325MG [Rawson 1 tab PO Q3H PRN 09/25/16 09/25/16 History 10-325] Allergies Allergy/AdvReac Type Severity Reaction Status Date / Time codeine Allergy Rash/Hives Verified 09/24/16 19:12 Sulfa (Sulfonamide Allergy Rash/Hives Verified 03/19/17 19:12 Antibiotics) gold Allergy Unknown Uncoded 09/24/16 19:12 Physical Exam Vitals: Vital Signs Temp Pulse Pulse Resp BP BP Pulse Ox 09/25/16 16:00 88 16 09/25/16 15:00 98 F 88 16 113/50 95 09/25/16 07:00 98.2 F 82 16 121/62 93 L 09/25/16 04:34 80 17 09/25/16 00:22 97.9 F 80 17 149/72 95 09/24/16 23:53 84 16 98 09/24/16 21:59 89 16 169/76 98 Intake and Output 09/25/16 09/25/16 09/25/16 06:59 14:59 22:59 Other: Voiding Method Bedpan Bedpan Bedpan Diaper Diaper Diaper # Voids 2 1 Weight 68.039 kg Patient Weight 09/26/16 06:59 Weight 68.039 kg - Constitutional General appearance: cooperative, no acute distress, obese - EENT Eyes: anicteric sclerae, EOMI, PERRLA, dentition normal, normal appearance ENT: hearing grossly normal, NA/AT, normal oropharynx - Neck Neck: normal ROM - Respiratory Respiratory: bilateral: CTA, negative: diminished, dullness, rales, rhonchi - Cardiovascular Rhythm: regular Heart sounds: normal: S1, S2 Abnormal Heart Sounds: no systolic murmur, no diastolic murmur, no rub, no S3 Gallop, no S4 Gallop, no click, no other - Gastrointestinal General gastrointestinal: soft - Integumentary Integumentary: normal, normal turgor - Neurologic Neurologic: CNII-XII intact - Musculoskeletal Musculoskeletal: gait normal, strength equal bilaterally - Psychiatric Psychiatric: A&O x's 3, appropriate affect, intact judgment & insight Results CBC & Chem 7: 09/27/16 06:58 09/27/16 06:58 Labs: Abnormal Lab Results - Last 24 Hours (Table) 09/24/16 09/25/16 Range/Units 22:57 01:15 POC Glucose (mg/dL) 149 H 112 H (75-99) mg/dL Thrombosis Risk Factor Assmnt - Choose All That Apply Any of the Below Risk Factors Present?: Yes Each Factor Represents 1 point: Obesity (BMI >25) Other Risk Factors: Yes Each Risk Factor Represents 2 Points: Age 61-74 years Thrombosis Risk Factor Assessment Total Risk Factor Score: 3 Thrombosis Risk Factor Assessment Level: Moderate Risk Assessment and Plan Plan: 1. Nausea vomiting and diarrhea with suspected viral gastroenteritis however bacterial etiology cannot be ruled out, her initial C. diff toxin is currently negative, prior history of C. diff in the past. We were going to monitor further GI losses she might need a repeat C. diff toxin daily diapiresis, 2 acute kidney failure secondary to dehydration with prerenal azotemia, most likely ATN in nature, underlying CK D stage III, nephrotoxins will be avoided patient currently is receiving IV fluids for hydration, patient currently is not on any NSAIDs. Protect blood pressure from any hypotension or hypotensive events, 3. Diabetes mellitus type 2 on Prandin 0.5 mg 3 times a day currently on hold secondary to diminished appetite insulin sliding scale 4. Diastolic CHF, echocardiogram performed during the last admission August 2016 diuretics on hold 5. CK D stage III, nephrotoxins will be avoided, including hypotension, protect for hemodynamic instability, patient would be monitored for her renal function test and azotemia secondary to GI bleed 6. Rheumatoid arthritis for which she is currently was on oral prednisone she is not on any biological disease modifying agents and 7. Chronic anemia chronic disease . Monitor for further hemoglobin losses, she required Benefiel during her last admission 8. Hypothyroidism for which she is currently on Cytomel 5 g we'll going to add levothyroxine 25 g 9. Hypertension on lisinopril 20 and milligrams daily, Zaroxolyn 2.5 mg every 48 hours and Lasix 10 Hyperlipidemia 11. History of Clostridium difficile January 2015 probiotics 12 code status full no prolonged intubation GI prophylaxis and DVT prophylaxis with Protonix 40 mg twice a day, no pharmaceutical prophylaxis secondary to GI bleed. Patient has CHAUNCEY bridges and SCDs
[2016-09-25 20:32] LABS: Glucose,Whole Blood 90 mg/dL (75-99)
[2016-09-25] MEDS ORDERED: LISINOPRIL 10 MG TAB PO SCH (21:00)
[2016-09-25] MEDS: MAGNESIUM OXIDE 400 MG TAB PO SCH (22:50)
[2016-09-25] MEDS: FERROUS SULFATE 325 MG TAB PO SCH (22:51)
[2016-09-25] MEDS: ATORVASTATIN 20 MG TAB PO SCH (22:51)
[2016-09-25] MEDS: LACTOBACILLUS ACIDOPH & BULGAR 1 EACH PACKET PO SCH (22:51)
[2016-09-26] MEDS: HYDROcodone/APAP 10-325MG 1 EACH TAB PO PRN ×3 (03:17→17:58)
[2016-09-26] MEDS: SODIUM CHLORIDE 0.9% 1,000 ML IV SCH ×2 (05:02→17:27)
[2016-09-26] MEDS: LEVOTHYROXINE 25 MCG TAB PO SCH (05:03)
[2016-09-26 06:53] LABS: Glucose,Whole Blood 80 mg/dL (75-99)
[2016-09-26 07:57] LABS: CH 30.3; CHCM 31.1; HCT 30.5 % (34.0-46.0); HDW 2.81; HGB 9.6 gm/dL (11.4-16.0); Hypochromasia Slight; MCH 30.9 pg (25.0-35.0); MCHC 31.6 g/dL (31.0-37.0); MCV 97.8 fL (80.0-100.0); Mean Platelet Volume 7.9; RBC 3.12 m/uL (3.80-5.40); RDW 14.1 % (11.5-15.5); WBC 6.5 k/uL (3.8-10.6)
[2016-09-26] MEDS: INSULIN LISPRO (humaLOG) 300 UNIT/3 ML VIAL SQ SCH ×4 (08:18→21:23)
[2016-09-26] MEDS: MORPHINE SULFATE ER 15 MG TABLET PO SCH ×2 (08:23→21:23)
[2016-09-26] MEDS: metroNIDAZOLE 500 MG TAB PO SCH ×3 (08:24→21:55)
[2016-09-26] MEDS: LIOTHYRONINE SODIUM 5 MCG TAB PO SCH (08:24)
[2016-09-26] MEDS: CYANOCOBALAMIN 500 MCG TAB PO SCH (08:24)
[2016-09-26] MEDS: PANTOPRAZOLE 40 MG TABLET PO SCH (08:26)
[2016-09-26] MEDS: predniSONE 10 MG TAB PO SCH (08:26)
[2016-09-26 08:29] LABS: Calcium 8.4 mg/dL (8.4-10.2); Potassium 4.9 mmol/L (3.5-5.1); Total Bilirubin 0.5 mg/dL (0.2-1.3); Total Protein 5.4 g/dL (6.3-8.2)
[2016-09-26] MEDS: CARVEDILOL 12.5 MG TAB PO SCH ×2 (08:29→21:22)
[2016-09-26] MEDS: LACTOBACILLUS ACIDOPH & BULGAR 1 EACH PACKET PO SCH ×2 (08:34→21:20)
[2016-09-26] MEDS ORDERED: METOLAZONE 2.5 MG TAB PO SCH (09:00)
[2016-09-26] MEDS ORDERED: CALCITRIOL 0.25 MCG CAP PO SCH (09:00)
[2016-09-26 09:12] VITALS: RESP 16
[2016-09-26] MEDS: GABAPENTIN 100 MG CAP PO SCH ×3 (10:40→21:22)
--- NOTE | 2016-09-26 10:49 | P.NPCON ---
History of Present Illness - Reason for Consult acute renal failure - History of Present Illness Reason for consultation: Acute kidney injury History of present illness: Patient is a 66-year-old female seen in renal consultation for acute kidney injury on chronic kidney disease. Patient has chronic kidney disease stage III with baseline creatinine near 1.4-1.5 secondary to herpetic kidney disease. Patient presented to the hospital with about a 4 day duration of nausea vomiting and diarrhea. She had only one episode of vomiting but was having 4-5 loose bowel movements daily. Her older intake has been poor for the last few days. She was also taking diuretics at home. Her appetite is starting to improve and diarrhea is slowing down. She denies any chest pain or shortness of breath. Admits to good urine output. No hematuria or dysuria. Denies use of NSAIDs. Denies family history of renal disease. Her creatinine was elevated at 2.78 on admission and is improved to 2.59 today. She is currently maintained on normal saline running at 75 mL an hour. Vital signs are stable. General: The patient appeared well nourished and normally developed. HEENT: Head exam is unremarkable. Neck is without jugular venous distension. LUNGS: Lungs are clear to auscultation and percussion. Breath sounds decreased. HEART: Rate and Rhythm are regular. First and second heart sounds normal. No murmurs, rubs or gallops. ABDOMEN: Abdominal exam reveals normal bowel sounds. Non-tender and non- distended. No evidence of peritonitis. EXTREMITITES: No clubbing, cyanosis, or edema. Past Medical History Past Medical History: Hyperlipidemia, Renal Disease, Thyroid Disorder Additional Past Medical History / Comment(s): low vitamin d levels which caused renal deficiency, parathyroid overactive related to low vit d levels, chronic prednisone secondary to RA followed by Dr. Marlow, ANEMIA,COMPRESSION FX L1, PAST FALL. of lithiasis, Csection, gall bladder History of Any Multi-Drug Resistant Organisms: None Reported Past Surgical History: Orthopedic Surgery Additional Past Surgical History / Comment(s): right knee TKA 2, carpel tunnel , CYST REMOVED (NECK) AGE 6 Past Anesthesia/Blood Transfusion Reactions: No Reported Reaction Past Psychological History: Anxiety Smoking Status: Never smoker Past Alcohol Use History: None Reported Past Drug Use History: None Reported - Past Family History Mother Additional Family Medical History / Comment(s): addisons disease Father Family Medical History: Hypertension Medications and Allergies Home Medications Medication Instructions Recorded Confirmed Type Omeprazole [PriLOSEC] 20 mg PO BID 02/20/14 09/24/16 History predniSONE 10 mg PO DAILY 02/20/14 09/24/16 History Cyanocobalamin [Vitamin B-12] 2,500 mcg PO DAILY 08/19/14 09/24/16 History Ergocalciferol [Vitamin D2 50,000 unit PO WE 08/19/14 09/24/16 History (DRISDOL)] Ferrous Sulfate [Iron (65 MG 325 mg PO HS 08/19/14 09/24/16 History Elemental)] Furosemide 60 mg PO QAM 08/19/14 09/24/16 History Calcitriol 0.25 mcg PO SUTUFR 01/07/15 09/24/16 History Liothyronine Sodium [Cytomel] 5 mcg PO DAILY 01/07/15 09/24/16 History ALPRAZolam [Xanax] 0.25 mg PO BID PRN 09/02/16 09/24/16 History Carvedilol [Coreg] 25 mg PO BID 09/02/16 09/24/16 History Enalapril [Vasotec] 5 mg PO HS 09/02/16 09/24/16 History Gabapentin [Neurontin] 100 mg PO TID 09/02/16 09/24/16 History Magnesium 200 mg PO HS 09/02/16 09/24/16 History Metolazone [Zaroxolyn] 2.5 mg PO Q48H 09/02/16 09/24/16 History Morphine Sulfate ER [Ms Contin] 15 mg PO Q12HR 09/02/16 09/24/16 History Simvastatin [Zocor] 40 mg PO HS 09/02/16 09/24/16 History Lactobacillus Acidoph & Bulgar 1 packet PO BID 09/24/16 09/24/16 History [Lactinex] Repaglinide [Prandin] 0.5 mg PO DAILY@1230 09/24/16 09/24/16 History Repaglinide [Prandin] 1 mg PO DAILY@0730 09/24/16 09/24/16 History HYDROcodone/APAP 10-325MG [Zanoni 1 tab PO Q3H PRN 09/25/16 09/25/16 History 10-325] Allergies Allergy/AdvReac Type Severity Reaction Status Date / Time codeine Allergy Rash/Hives Verified 09/24/16 19:12 Sulfa (Sulfonamide Allergy Rash/Hives Verified 09/24/16 19:12 Antibiotics) gold Allergy Unknown Uncoded 09/24/16 19:12 Physical Exam Vitals: Vital Signs Temp Pulse Resp BP Pulse Ox 09/26/16 09:11 98.2 F 80 16 95/48 94 L 09/26/16 08:00 80 16 09/26/16 07:59 97.1 F L 20 97/54 09/25/16 22:58 98.2 F 81 16 112/64 92 L 09/25/16 16:00 88 16 09/25/16 15:00 98 F 88 16 113/50 95 Intake and Output 09/25/16 09/26/16 09/26/16 22:59 06:59 14:59 Intake Total 200 Balance 200 Intake: Oral 200 Other: Voiding Method Bedpan Bedpan Bedpan Diaper Diaper Diaper # Voids 1 1 1 Weight 68.039 kg Results - Lab Results Most recent lab results Calcium 8.4 mg/dL (8.4-10.2) 09/26/16 07:36 09/26/16 07:36 09/26/16 07:36 Assessment and Plan Plan: Assessment: #1. Nonoliguric acute kidney injury mostly prerenal in nature secondary to hypotension and intravascular volume depletion related to poor oral intake and diarrhea. Improving. Creatinine of 2.59 today. #2. Chronic kidney disease stage III secondary to diabetic kidney disease with baseline creatinine near 1.4-1.5. #3. Metabolic acidosis secondary to acute kidney injury as well as IV fluids. #4. Anemia. Rule out iron deficiency. #5. Vomiting and diarrhea possibly related to viral gastroenteritis. Plan: Continue normal saline to be run at 75 mL an hour. Avoid nephrotoxic agents and hypotensive episodes. Hold diuretics and lisinopril for now. Encourage oral intake. Check iron studies. Check urinalysis. Start oral sodium bicarbonate supplementation. Repeat electrolytes in the morning. Thank you for the consultation. I will continue to follow patient with you during her hospital stay.
[2016-09-26 11:19] LABS: % Iron Saturation 22.8 % (20-50)
[2016-09-26] MEDS: SODIUM BICARBONATE TAB 650 MG TAB PO SCH ×2 (11:21→21:22)
[2016-09-26 11:38] LABS: Glucose,Whole Blood 176 mg/dL (75-99)
--- NOTE | 2016-09-26 12:32 | P.PN ---
Subjective This a pleasant 64-year-old female recently transferred to my practice. She has underlying history off CK D stage III hypertension diabetes mellitus rheumatoid arthritis on chronic prednisone. Chronic protein malnutrition, chronic pain She had a prior C. diff toxin positive in January 2015 She is chronically on [address] Marlow secondary to rheumatoid arthritis. She has had increasing difficulty For the past 3 days with nausea vomiting and diarrhea. She did not have any fever, she has some back pain no fever has some shakiness, there is no right-sided blood or black stools noted, patient denies any recent exposure to recent foreign travel or anyone with viral gastroenteritis No new medications initiated as an outpatient, Patient did not receive any antibiotics prior to admission patient cannot take any NSAIDs secondary to CK D She also has lack of appetite nausea shortness of breath no significant wheezing. She was last admitted on September 05 Secondary to severe anemia hemoglobin of 6.[address] Quigley, no intervention stated time also noted to have urinary tract infection and was discharged on cephalexin In the emergency room she was tested negative for Clostridium difficile A, however she came in with severe azotemia BUN of over 110, creatinine around 3 with a baseline of 1.48-1.8, patient currently requires IV hydration 09/26: Repeat BUN 93 and creatinine 2.59. Patient is followed by nephrology. Patient is continued on IV fluids at 75 mL/h, off diuretics and sodium bicarbonate started. Renal ultrasound showed no hydronephrosis. Patient states diarrhea has resolved. She states she occasionally gets chills. Influenza testing added. Objective - Vital Signs Vital signs: Vital Signs Temp 98.2 F 09/26/16 09:11 Pulse 80 09/26/16 09:11 Resp 16 09/26/16 09:11 BP 95/48 09/26/16 09:11 Pulse Ox 94 L 09/26/16 09:11 Intake & Output 09/25/16 09/26/16 09/26/16 18:59 06:59 18:59 Intake Total 200 Balance 200 Weight 68.039 kg 68.039 kg Intake: Oral 200 Other: Voiding Method Bedpan Bedpan Bedpan Diaper Diaper Diaper # Voids 1 1 1 - Labs CBC & Chem 7: 09/26/16 07:36 09/26/16 07:36 Labs: Abnormal Lab Results - Last 24 Hours (Table) 09/26/16 09/26/16 09/26/16 Range/Units 07:26 07:36 07:36 RBC 3.12 L (3.80-5.40) m/uL Hgb 9.6 L (11.4-16.0) gm/dL Hct 30.5 L (34.0-46.0) % Chloride 113 H (98-107) mmol/L Carbon Dioxide 19 L (22-30) mmol/L BUN 93 H* (7-17) mg/dL Creatinine 2.59 H (0.52-1.04) mg/dL POC Glucose (mg/dL) (75-99) mg/dL TIBC 202 L (265-497) ug/dL Ferritin 435 H (11-264) ng/mL Total Protein 5.4 L (6.3-8.2) g/dL Albumin 2.6 L (3.5-5.0) g/dL 09/26/16 Range/Units 11:18 RBC (3.80-5.40) m/uL Hgb (11.4-16.0) gm/dL Hct (34.0-46.0) % Chloride (98-107) mmol/L Carbon Dioxide (22-30) mmol/L BUN (7-17) mg/dL Creatinine (0.52-1.04) mg/dL POC Glucose (mg/dL) 176 H (75-99) mg/dL TIBC (265-497) ug/dL Ferritin (11-264) ng/mL Total Protein (6.3-8.2) g/dL Albumin (3.5-5.0) g/dL Assessment and Plan Plan: 1. Nausea vomiting and diarrhea with suspected viral gastroenteritis however bacterial etiology cannot be ruled out, her initial C. diff toxin is currently negative, prior history of C. diff in the past. We were going to monitor further GI losses she might need a repeat C. diff toxin daily diapiresis, 2 acute kidney failure secondary to dehydration with prerenal azotemia, most likely ATN in nature, underlying CK D stage III, nephrotoxins will be avoided patient currently is receiving IV fluids for hydration, patient currently is not on any NSAIDs. Protect blood pressure from any hypotension or hypotensive events, 3. Diabetes mellitus type 2 on Prandin 0.5 mg 3 times a day currently on hold secondary to diminished appetite insulin sliding scale 4. Chronic diastolic heart failure echocardiogram performed during the last admission August 2016 diuretics on hold 5. CKD stage III, nephrotoxins will be avoided, including hypotension, protect for hemodynamic instability, patient would be monitored for her renal function test and azotemia secondary to GI bleed 6. Rheumatoid arthritis for which she is currently was on oral prednisone she is not on any biological disease modifying agents and 7. Chronic anemia chronic disease . Monitor for further hemoglobin losses, she required Benefiel during her last admission 8. Hypothyroidism for which she is currently on Cytomel 5 g we'll going to add levothyroxine 25 g 9. Hypertension on lisinopril 20 and milligrams daily, Zaroxolyn 2.5 mg every 48 hours and Lasix 10. Hyperlipidemia 11. History of Clostridium difficile January 2015 probiotics 12 code status full no prolonged intubation GI prophylaxis and DVT prophylaxis with Protonix 40 mg twice a day, no pharmaceutical prophylaxis secondary to GI bleed. Patient has CHAUNCEY hose and SCDs Discharge plan: Home with [facility] Impression and plan of care have been directed as dictated by the signing physician. Nadja Kaur nurse practitioner acting as scribe for signing physician. Time with Patient: Greater than 30
[2016-09-26] MEDS: ALPRAZolam 0.25 MG TAB PO PRN (14:34)
--- NOTE | 2016-09-26 16:00 | XR ---
EXAMINATION TYPE: XR chest 2V DATE OF EXAM: 09/26/2016 2:56 PM HISTORY: chf. REFERENCE: Previous study dated 09/24/2016. FINDINGS: The heart is mildly enlarged. There is pulmonary vascular congestion. There is improving in terstitial change. Pleural spaces are clear. IMPRESSION: RESOLVING CHANGES OF PULMONARY EDEMA.
[2016-09-26 17:14] LABS: Glucose,Whole Blood 243 mg/dL (75-99)
[2016-09-26 20:07] LABS: Glucose,Whole Blood 182 mg/dL (75-99)
[2016-09-26] MEDS: MAGNESIUM OXIDE 400 MG TAB PO SCH (21:22)
[2016-09-26] MEDS: ATORVASTATIN 20 MG TAB PO SCH (21:22)
[2016-09-26] MEDS: FERROUS SULFATE 325 MG TAB PO SCH (21:23)
[2016-09-27] MEDS: SODIUM CHLORIDE 0.9% 1,000 ML IV SCH ×3 (05:39→12:54)
[2016-09-27] MEDS: LEVOTHYROXINE 25 MCG TAB PO SCH (06:13)
[2016-09-27 07:11] LABS: Glucose,Whole Blood 125 mg/dL (75-99)
[2016-09-27 07:25] LABS: CH 30.3; CHCM 31.3; HDW 2.78; HGB 8.3 gm/dL (11.4-16.0); Hypochromasia Slight; MCH 30.9 pg (25.0-35.0); MCHC 31.8 g/dL (31.0-37.0); MCV 97.1 fL (80.0-100.0); RBC 2.68 m/uL (3.80-5.40); RDW 13.9 % (11.5-15.5); WBC 5.3 k/uL (3.8-10.6)
[2016-09-27 07:46] LABS: Calcium 8.5 mg/dL (8.4-10.2); Potassium 5.2 mmol/L (3.5-5.1); Total Bilirubin 0.3 mg/dL (0.2-1.3); Total Protein 4.8 g/dL (6.3-8.2)
[2016-09-27] MEDS: metroNIDAZOLE 500 MG TAB PO SCH ×3 (08:12→21:33)
[2016-09-27] MEDS: MORPHINE SULFATE ER 15 MG TABLET PO SCH ×2 (08:12→21:30)
[2016-09-27] MEDS: SODIUM BICARBONATE TAB 650 MG TAB PO SCH ×2 (08:12→21:33)
[2016-09-27] MEDS: GABAPENTIN 100 MG CAP PO SCH ×3 (08:13→21:33)
[2016-09-27] MEDS: predniSONE 10 MG TAB PO SCH (08:13)
[2016-09-27] MEDS: PANTOPRAZOLE 40 MG TABLET PO SCH (08:13)
[2016-09-27] MEDS: CARVEDILOL 12.5 MG TAB PO SCH ×2 (08:13→21:31)
[2016-09-27] MEDS: CYANOCOBALAMIN 500 MCG TAB PO SCH (08:14)
[2016-09-27] MEDS: LACTOBACILLUS ACIDOPH & BULGAR 1 EACH PACKET PO SCH ×2 (08:14→21:31)
[2016-09-27] MEDS: INSULIN LISPRO (humaLOG) 300 UNIT/3 ML VIAL SQ SCH ×4 (08:14→21:32)
[2016-09-27] MEDS: LIOTHYRONINE SODIUM 5 MCG TAB PO SCH (08:15)
[2016-09-27] MEDS: HYDROcodone/APAP 10-325MG 1 EACH TAB PO PRN ×2 (10:00→16:32)
[2016-09-27] MEDS ORDERED: DARBEPOETIN ALFA 40 MCG/0.4 ML SYRINGE SQ SCH (11:00)
--- NOTE | 2016-09-27 11:13 | P.PN ---
Subjective Patient is seen in follow-up for acute kidney injury on chronic kidney disease. She has chronic kidney disease stage III secondary to diabetic kidney disease with baseline creatinine near 1.5. Patient presented with vomiting as well as diarrhea for the last 4 days. This appears to have resolved. Her renal function is gradually improving with creatinine down to 2.52 today. She is now tolerating oral intake well. Vital signs are stable. General: The patient appeared well nourished and normally developed. HEENT: Head exam is unremarkable. Neck is without jugular venous distension. LUNGS: Lungs are clear to auscultation and percussion. Breath sounds decreased. HEART: Rate and Rhythm are regular. First and second heart sounds normal. No murmurs, rubs or gallops. ABDOMEN: Abdominal exam reveals normal bowel sounds. Non-tender and non- distended. No evidence of peritonitis. EXTREMITITES: No clubbing, cyanosis, or edema. Objective - Vital Signs Vital signs: Vital Signs Temp 97.5 F L 09/27/16 07:00 Pulse 87 09/27/16 08:00 Resp 16 09/27/16 08:00 BP 114/68 09/27/16 07:00 Pulse Ox 95 09/27/16 07:00 Intake & Output 09/26/16 09/27/16 09/27/16 18:59 06:59 18:59 Intake Total 1450 675 Balance 1450 675 Weight 68.039 kg 68.039 kg Intake: IV 675 Sodium Chloride 0.9% 1, 675 000 ml @ 75 mls/hr IV . [id number] [facility] Rx#:[id number] Intake, IV Titration 650 Amount Sodium Chloride 0.9% 1, 650 000 ml @ 75 mls/hr IV . [id number] [facility] Rx#:[id number] Oral 800 Other: Voiding Method Bedpan Bedpan Bedpan Diaper Diaper Diaper # Voids 4 1 1 - Labs CBC & Chem 7: 09/27/16 06:58 09/27/16 06:58 Labs: Abnormal Lab Results - Last 24 Hours (Table) 09/26/16 09/26/16 09/26/16 Range/Units 07:26 11:18 17:00 RBC (3.80-5.40) m/uL Hgb (11.4-16.0) gm/dL Hct (34.0-46.0) % Plt Count (150-450) k/uL Potassium (3.5-5.1) mmol/L Chloride (98-107) mmol/L Carbon Dioxide (22-30) mmol/L BUN (7-17) mg/dL Creatinine (0.52-1.04) mg/dL Glucose (74-99) mg/dL POC Glucose (mg/dL) 176 H 243 H (75-99) mg/dL TIBC 202 L (265-497) ug/dL Ferritin 435 H (11-264) ng/mL Total Protein (6.3-8.2) g/dL Albumin (3.5-5.0) g/dL 09/26/16 09/27/16 09/27/16 Range/Units 20:04 06:51 06:58 RBC 2.68 L (3.80-5.40) m/uL Hgb 8.3 L (11.4-16.0) gm/dL Hct 26.0 L (34.0-46.0) % Plt Count 121 L (150-450) k/uL Potassium (3.5-5.1) mmol/L Chloride (98-107) mmol/L Carbon Dioxide (22-30) mmol/L BUN (7-17) mg/dL Creatinine (0.52-1.04) mg/dL Glucose (74-99) mg/dL POC Glucose (mg/dL) 182 H 125 H (75-99) mg/dL TIBC (265-497) ug/dL Ferritin (11-264) ng/mL Total Protein (6.3-8.2) g/dL Albumin (3.5-5.0) g/dL 09/27/16 Range/Units 06:58 RBC (3.80-5.40) m/uL Hgb (11.4-16.0) gm/dL Hct (34.0-46.0) % Plt Count (150-450) k/uL Potassium 5.2 H (3.5-5.1) mmol/L Chloride 114 H (98-107) mmol/L Carbon Dioxide 20 L (22-30) mmol/L BUN 91 H* (7-17) mg/dL Creatinine 2.52 H (0.52-1.04) mg/dL Glucose 113 H (74-99) mg/dL POC Glucose (mg/dL) (75-99) mg/dL TIBC (265-497) ug/dL Ferritin (11-264) ng/mL Total Protein 4.8 L (6.3-8.2) g/dL Albumin 2.3 L (3.5-5.0) g/dL Assessment and Plan Plan: Assessment: #1. Nonoliguric acute kidney injury mostly prerenal in nature secondary to hypotension and intravascular volume depletion related to poor oral intake and diarrhea. Improving. Creatinine of 2.52 today. #2. Chronic kidney disease stage III secondary to diabetic kidney disease with baseline creatinine near 1.4-1.5. #3. Metabolic acidosis secondary to acute kidney injury as well as IV fluids. #4. Anemia. Iron replete. #5. Vomiting and diarrhea possibly related to viral gastroenteritis. Plan: Decrease rate of normal saline to be run at 50 mL an hour. Avoid nephrotoxic agents and hypotensive episodes. Hold diuretics and lisinopril for now. Encourage oral intake. Start Aranesp. Check urinalysis. Maintain oral sodium bicarbonate supplementation. Repeat electrolytes in the morning.
[2016-09-27 11:50] LABS: Glucose,Whole Blood 236 mg/dL (75-99)
[2016-09-27] MEDS ORDERED: ERGOCALCIFEROL 50,000 UNIT CAP PO SCH (12:00)
[2016-09-27 17:08] LABS: Glucose,Whole Blood 138 mg/dL (75-99)
[2016-09-27 20:30] LABS: Glucose,Whole Blood 194 mg/dL (75-99)
[2016-09-27] MEDS: FERROUS SULFATE 325 MG TAB PO SCH (21:32)
[2016-09-27] MEDS: ATORVASTATIN 20 MG TAB PO SCH (21:32)
[2016-09-27] MEDS: MAGNESIUM OXIDE 400 MG TAB PO SCH (21:32)
[2016-09-28] MEDS: SODIUM CHLORIDE 0.9% 1,000 ML IV SCH ×2 (07:25→08:48)
[2016-09-28 07:26] LABS: Glucose,Whole Blood 104 mg/dL (75-99)
[2016-09-28] MEDS: LEVOTHYROXINE 25 MCG TAB PO SCH (07:28)
[2016-09-28] MEDS: INSULIN LISPRO (humaLOG) 300 UNIT/3 ML VIAL SQ SCH ×2 (07:38→12:35)
[2016-09-28 08:08] VITALS: BP 160/82; PULSE 91; TEMP 98
[2016-09-28 08:37] LABS: CH 30.6; CHCM 31.4; HCT 28.6 % (34.0-46.0); HDW 2.71; HGB 9.1 gm/dL (11.4-16.0); Hypochromasia Slight; MCH 31.3 pg (25.0-35.0); MCHC 31.9 g/dL (31.0-37.0); MCV 98.1 fL (80.0-100.0); Mean Platelet Volume 8.7; RBC 2.91 m/uL (3.80-5.40); RDW 14.3 % (11.5-15.5); WBC 8.2 k/uL (3.8-10.6)
[2016-09-28] MEDS: MORPHINE SULFATE ER 15 MG TABLET PO SCH (08:38)
[2016-09-28] MEDS: HYDROcodone/APAP 10-325MG 1 EACH TAB PO PRN ×2 (08:42→13:15)
[2016-09-28] MEDS: LACTOBACILLUS ACIDOPH & BULGAR 1 EACH PACKET PO SCH (08:44)
[2016-09-28] MEDS: SODIUM BICARBONATE TAB 650 MG TAB PO SCH (08:44)
[2016-09-28] MEDS: GABAPENTIN 100 MG CAP PO SCH (08:45)
[2016-09-28] MEDS: CYANOCOBALAMIN 500 MCG TAB PO SCH (08:45)
[2016-09-28] MEDS: predniSONE 10 MG TAB PO SCH (08:45)
[2016-09-28] MEDS: CARVEDILOL 12.5 MG TAB PO SCH (08:46)
[2016-09-28] MEDS: PANTOPRAZOLE 40 MG TABLET PO SCH (08:46)
[2016-09-28] MEDS: metroNIDAZOLE 500 MG TAB PO SCH (08:46)
[2016-09-28] MEDS: LIOTHYRONINE SODIUM 5 MCG TAB PO SCH (08:47)
[2016-09-28 09:07] LABS: Calcium 9.1 mg/dL (8.4-10.2); Potassium 5.3 mmol/L (3.5-5.1); Total Bilirubin 0.3 mg/dL (0.2-1.3); Total Protein 5.6 g/dL (6.3-8.2)
--- NOTE | 2016-09-28 10:19 | P.PN ---
Subjective This a pleasant 64-year-old female recently transferred to my practice. She has underlying history off CK D stage III hypertension diabetes mellitus rheumatoid arthritis on chronic prednisone. Chronic protein malnutrition, chronic pain She had a prior C. diff toxin positive in January 2015 She is chronically on [address] Marlow secondary to rheumatoid arthritis. She has had increasing difficulty For the past 3 days with nausea vomiting and diarrhea. She did not have any fever, she has some back pain no fever has some shakiness, there is no right-sided blood or black stools noted, patient denies any recent exposure to recent foreign travel or anyone with viral gastroenteritis No new medications initiated as an outpatient, Patient did not receive any antibiotics prior to admission patient cannot take any NSAIDs secondary to CK D She also has lack of appetite nausea shortness of breath no significant wheezing. She was last admitted on September 05 Secondary to severe anemia hemoglobin of 6.[address] Quigley, no intervention stated time also noted to have urinary tract infection and was discharged on cephalexin In the emergency room she was tested negative for Clostridium difficile A, however she came in with severe azotemia BUN of over 110, creatinine around 3 with a baseline of 1.48-1.8, patient currently requires IV hydration 09/26: Repeat BUN 93 and creatinine 2.59. Patient is followed by nephrology. Patient is continued on IV fluids at 75 mL/h, off diuretics and sodium bicarbonate started. Renal ultrasound showed no hydronephrosis. Patient states diarrhea has resolved. She states she occasionally gets chills. Influenza testing added. 09/27: Repeat BUN 91 and creatinine 2.52. Hgb 8.3. Influenza A and B negative. Chest x-ray shows resolving pulmonary edema. Nephrology has recommended IV fluids at 50 mL per hour. Diuretics and lisinopril on hold. Aranesp started. Objective - Vital Signs Vital signs: Vital Signs Temp 97.5 F L 09/27/16 07:00 Pulse 87 09/27/16 08:00 Resp 16 09/27/16 08:00 BP 114/68 09/27/16 07:00 Pulse Ox 95 09/27/16 07:00 Intake & Output 09/26/16 09/27/16 09/27/16 18:59 06:59 18:59 Intake Total 1450 675 Balance 1450 675 Weight 68.039 kg 68.039 kg Intake: IV 675 Sodium Chloride 0.9% 1, 675 000 ml @ 75 mls/hr IV . [id number] [facility] Rx#:[id number] Intake, IV Titration 650 Amount Sodium Chloride 0.9% 1, 650 000 ml @ 75 mls/hr IV . [id number] [facility] Rx#:[id number] Oral 800 Other: Voiding Method Bedpan Bedpan Bedpan Diaper Diaper Diaper # Voids 4 1 1 - Exam General appearance: cooperative, no acute distress, obese - EENT Eyes: anicteric sclerae, EOMI, PERRLA, dentition normal, normal appearance ENT: hearing grossly normal, NA/AT, normal oropharynx - Neck Neck: normal ROM - Respiratory Respiratory: bilateral: CTA, negative: diminished, dullness, rales, rhonchi - Cardiovascular Rhythm: regular Heart sounds: normal: S1, S2 Abnormal Heart Sounds: no systolic murmur, no diastolic murmur, no rub, no S3 Gallop, no S4 Gallop, no click, no other - Gastrointestinal General gastrointestinal: soft - Integumentary Integumentary: normal, normal turgor - Neurologic Neurologic: CNII-XII intact - Musculoskeletal Musculoskeletal: gait normal, strength equal bilaterally - Psychiatric Psychiatric: A&O x's 3, appropriate affect, intact judgment & insight - Labs CBC & Chem 7: 09/28/16 08:00 09/28/16 08:00 Labs: Abnormal Lab Results - Last 24 Hours (Table) 09/26/16 09/26/16 09/27/16 Range/Units 17:00 20:04 06:51 RBC (3.80-5.40) m/uL Hgb (11.4-16.0) gm/dL Hct (34.0-46.0) % Plt Count (150-450) k/uL Potassium (3.5-5.1) mmol/L Chloride (98-107) mmol/L Carbon Dioxide (22-30) mmol/L BUN (7-17) mg/dL Creatinine (0.52-1.04) mg/dL Glucose (74-99) mg/dL POC Glucose (mg/dL) 243 H 182 H 125 H (75-99) mg/dL Total Protein (6.3-8.2) g/dL Albumin (3.5-5.0) g/dL 09/27/16 09/27/16 09/27/16 Range/Units 06:58 06:58 11:41 RBC 2.68 L (3.80-5.40) m/uL Hgb 8.3 L (11.4-16.0) gm/dL Hct 26.0 L (34.0-46.0) % Plt Count 121 L (150-450) k/uL Potassium 5.2 H (3.5-5.1) mmol/L Chloride 114 H (98-107) mmol/L Carbon Dioxide 20 L (22-30) mmol/L BUN 91 H* (7-17) mg/dL Creatinine 2.52 H (0.52-1.04) mg/dL Glucose 113 H (74-99) mg/dL POC Glucose (mg/dL) 236 H (75-99) mg/dL Total Protein 4.8 L (6.3-8.2) g/dL Albumin 2.3 L (3.5-5.0) g/dL Assessment and Plan Plan: 1. Nausea vomiting and diarrhea with suspected viral gastroenteritis however bacterial etiology cannot be ruled out, her initial C. diff toxin is currently negative, prior history of C. diff in the past. We were going to monitor further GI losses she might need a repeat C. diff toxin daily diapiresis, 2 acute kidney failure secondary to dehydration with prerenal azotemia, most likely ATN in nature, underlying CK D stage III, nephrotoxins will be avoided patient currently is receiving IV fluids for hydration, patient currently is not on any NSAIDs. Protect blood pressure from any hypotension or hypotensive events, 3. Diabetes mellitus type 2 on Prandin 0.5 mg 3 times a day currently on hold secondary to diminished appetite insulin sliding scale 4. Chronic diastolic heart failure echocardiogram performed during the last admission August 2016 diuretics on hold 5. CKD stage III, nephrotoxins will be avoided, including hypotension, protect for hemodynamic instability, patient would be monitored for her renal function test and azotemia secondary to GI bleed 6. Rheumatoid arthritis for which she is currently was on oral prednisone she is not on any biological disease modifying agents and 7. Chronic anemia chronic disease . Monitor for further hemoglobin losses, she required Benefiel during her last admission 8. Hypothyroidism for which she is currently on Cytomel 5 g we'll going to add levothyroxine 25 g 9. Hypertension on lisinopril 20 and milligrams daily, Zaroxolyn 2.5 mg every 48 hours and Lasix 10. Hyperlipidemia 11. History of Clostridium difficile January 2015 probiotics 12 code status full no prolonged intubation GI prophylaxis and DVT prophylaxis with Protonix 40 mg twice a day, no pharmaceutical prophylaxis secondary to GI bleed. Patient has CHAUNCEY hose and SCDs Discharge plan: Home with [facility] care Impression and plan of care have been directed as dictated by the signing physician. Nadja Kaur nurse practitioner acting as scribe for signing physician.
--- NOTE | 2016-09-28 11:16 | P.PN ---
Subjective Patient is seen in follow-up for acute kidney injury on chronic kidney disease. She has chronic kidney disease stage III secondary to diabetic kidney disease with baseline creatinine near 1.5. Patient presented with vomiting as well as diarrhea for 4 days. This appears to have resolved. Her renal function is gradually improving with creatinine down to 1.99 today. She is now tolerating oral intake well. Vital signs are stable. General: The patient appeared well nourished and normally developed. HEENT: Head exam is unremarkable. Neck is without jugular venous distension. LUNGS: Lungs are clear to auscultation and percussion. Breath sounds decreased. HEART: Rate and Rhythm are regular. First and second heart sounds normal. No murmurs, rubs or gallops. ABDOMEN: Abdominal exam reveals normal bowel sounds. Non-tender and non- distended. No evidence of peritonitis. EXTREMITITES: No clubbing, cyanosis, or edema. Objective - Vital Signs Vital signs: Vital Signs Temp 98.0 F 09/28/16 07:00 Pulse 91 09/28/16 07:00 Resp 16 09/28/16 07:00 BP 160/82 09/28/16 07:00 Pulse Ox 98 09/28/16 07:00 Intake & Output 09/27/16 09/28/16 09/28/16 18:59 06:59 18:59 Intake Total 359 240 Balance 359 240 Weight 68.039 kg Intake: Intake, IV Titration 359 Amount Sodium Chloride 0.9% 1, 359 000 ml @ 50 mls/hr IV . Q20H [facility] Rx#:[id number] Oral 240 Other: Voiding Method Bedpan Bedpan Toilet Diaper Diaper Bedpan # Voids 2 2 - Labs CBC & Chem 7: 09/28/16 08:00 09/28/16 08:00 Labs: Abnormal Lab Results - Last 24 Hours (Table) 09/27/16 09/27/16 09/27/16 Range/Units 11:41 17:03 20:28 RBC (3.80-5.40) m/uL Hgb (11.4-16.0) gm/dL Hct (34.0-46.0) % Plt Count (150-450) k/uL Sodium (137-145) mmol/L Potassium (3.5-5.1) mmol/L Chloride (98-107) mmol/L Carbon Dioxide (22-30) mmol/L BUN (7-17) mg/dL Creatinine (0.52-1.04) mg/dL Glucose (74-99) mg/dL POC Glucose (mg/dL) 236 H 138 H 194 H (75-99) mg/dL Alkaline Phosphatase (38-126) U/L Total Protein (6.3-8.2) g/dL Albumin (3.5-5.0) g/dL 09/28/16 09/28/16 09/28/16 Range/Units 07:22 08:00 08:00 RBC 2.91 L (3.80-5.40) m/uL Hgb 9.1 L (11.4-16.0) gm/dL Hct 28.6 L (34.0-46.0) % Plt Count 143 L (150-450) k/uL Sodium 146 H (137-145) mmol/L Potassium 5.3 H (3.5-5.1) mmol/L Chloride 116 H (98-107) mmol/L Carbon Dioxide 21 L (22-30) mmol/L BUN 75 H (7-17) mg/dL Creatinine 1.99 H (0.52-1.04) mg/dL Glucose 104 H (74-99) mg/dL POC Glucose (mg/dL) 104 H (75-99) mg/dL Alkaline Phosphatase 146 H (38-126) U/L Total Protein 5.6 L (6.3-8.2) g/dL Albumin 2.7 L (3.5-5.0) g/dL Assessment and Plan Plan: Assessment: #1. Nonoliguric acute kidney injury mostly prerenal in nature secondary to hypotension and intravascular volume depletion related to poor oral intake and diarrhea. Improving. Creatinine down to 1.99 today. #2. Chronic kidney disease stage III secondary to diabetic kidney disease with baseline creatinine near 1.4-1.5. #3. Metabolic acidosis secondary to acute kidney injury as well as IV fluids. #4. Anemia. Iron replete. #5. Vomiting and diarrhea possibly related to viral gastroenteritis. Plan: Continue normal saline to be run at 50 mL an hour. Avoid nephrotoxic agents and hypotensive episodes. Hold diuretics and lisinopril for now. Encourage oral intake. Maintain Aranesp. Await urinalysis. Maintain oral sodium bicarbonate supplementation. Repeat electrolytes in the morning. Stable to be discharged home from nephrology standpoint and to follow-up as an outpatient in the next 2 weeks.
[2016-09-28 11:25] LABS: Glucose,Whole Blood 215 mg/dL (75-99)
--- NOTE | 2016-09-28 13:36 | P.DS ---
Providers Date of admission: 09/24/16 21:45 Expected date of discharge: 09/28/16 Attending physician: Cassidy Cruz Consults: 09/25/16 13:21 Consult Physician Routine Consulting Provider: Itz Rogers Consult Reason/Comments: davide Do you want consulting provider notified?: Yes Primary care physician: [facility] Course: This a pleasant 64-year-old female recently transferred to my practice. She has underlying history off CK D stage III hypertension diabetes mellitus rheumatoid arthritis on chronic prednisone. Chronic protein malnutrition, chronic pain She had a prior C. diff toxin positive in January 2015 She is chronically on [address] Marlow secondary to rheumatoid arthritis. She has had increasing difficulty For the past 3 days with nausea vomiting and diarrhea. She did not have any fever, she has some back pain no fever has some shakiness, there is no right-sided blood or black stools noted, patient denies any recent exposure to recent foreign travel or anyone with viral gastroenteritis No new medications initiated as an outpatient, Patient did not receive any antibiotics prior to admission patient cannot take any NSAIDs secondary to CK D She also has lack of appetite nausea shortness of breath no significant wheezing. She was last admitted on September 05 Secondary to severe anemia hemoglobin of 6.[address] Quigley, no intervention stated time also noted to have urinary tract infection and was discharged on cephalexin In the emergency room she was tested negative for Clostridium difficile A, however she came in with severe azotemia BUN of over 110, creatinine around 3 with a baseline of 1.48-1.8, patient currently requires IV hydration 09/26: Repeat BUN 93 and creatinine 2.59. Patient is followed by nephrology. Patient is continued on IV fluids at 75 mL/h, off diuretics and sodium bicarbonate started. Renal ultrasound showed no hydronephrosis. Patient states diarrhea has resolved. She states she occasionally gets chills. Influenza testing added. 09/27: Repeat BUN 91 and creatinine 2.52. Hgb 8.3. Influenza A and B negative. Chest x-ray shows resolving pulmonary edema. 09/28: repeat BUN 75 and creatinine 1.99. Patient is eating without difficulty. No more diarrhea. She has been cleared for discharge from nephrology. Patient will be discharged home today in stable condition. Discharge Diagnoses: 1. Nausea vomiting and diarrhea with suspected viral gastroenteritis 2 acute kidney failure secondary to dehydration with prerenal azotemia, most likely ATN 3. Diabetes mellitus type 2 4. Chronic diastolic heart failure 5. CKD stage III 6. Rheumatoid arthritis 7. Chronic anemia chronic disease 8. Hypothyroidism 9. Hypertension 10. Hyperlipidemia 11. History of Clostridium difficile January 2015 Discharge plan: Home with [facility] Impression and plan of care have been directed as dictated by the signing physician. Nadja Kaur nurse practitioner acting as scribe for signing physician. Patient Condition at Discharge: Good Plan - Discharge Summary New Discharge Prescriptions: Sodium Bicarbonate Tab 650 mg PO BID #60 tab Discharge Medication List Omeprazole [PriLOSEC] 20 mg PO BID 02/20/14 [History] predniSONE 10 mg PO DAILY 02/20/14 [History] Cyanocobalamin [Vitamin B-12] 2,500 mcg PO DAILY 08/19/14 [History] Ergocalciferol [Vitamin D2 (DRISDOL)] 50,000 unit PO WE 08/19/14 [History] Ferrous Sulfate [Iron (65 MG Elemental)] 325 mg PO HS 08/19/14 [History] Ondansetron Odt [Zofran ODT] 4 mg PO Q8HR PRN #15 tab 01/04/15 [Rx] Calcitriol 0.25 mcg PO SUTUFR 01/07/15 [History] Liothyronine Sodium [Cytomel] 5 mcg PO DAILY 01/07/15 [History] Levothyroxine Sodium [Synthroid] 25 mcg PO DAILY@0630 tab 01/12/15 [Rx] ALPRAZolam [Xanax] 0.25 mg PO BID PRN 09/02/16 [History] Carvedilol [Coreg] 25 mg PO BID 09/02/16 [History] Gabapentin [Neurontin] 100 mg PO TID 09/02/16 [History] Magnesium 200 mg PO HS 09/02/16 [History] Morphine Sulfate ER [Ms Contin] 15 mg PO Q12HR 09/02/16 [History] Simvastatin [Zocor] 40 mg PO HS 09/02/16 [History] Repaglinide [Prandin] 0.25 mg PO AC-SUPPER tab 09/05/16 [Rx] Lactobacillus Acidoph & Bulgar [Lactinex] 1 packet PO BID 09/24/16 [History] Repaglinide [Prandin] 0.5 mg PO DAILY@1230 09/24/16 [History] Repaglinide [Prandin] 1 mg PO DAILY@0730 09/24/16 [History] HYDROcodone/APAP 10-325MG [[place]odosia 10-325] 1 tab PO Q3H PRN 09/25/16 [History] Sodium Bicarbonate Tab 650 mg PO BID #60 tab 09/28/16 [Rx] Follow up Appointment(s)/Referral(s): Reanna Cowan MD [STAFF PHYSICIAN] - 1 Week (Dr. Cowan's office will call patient with an appointment date and time.) Fay Lerner MD [Primary Care Provider] - 10/04/16 12:45 pm Activity/Diet/Wound Care/Special Instructions: [facility]-[phone] Discharge Disposition: HOME WITH HOME HEALTH SERVICES
== END 2016-09-28 15:30 | disposition home health service (06) | DRG 391 ==
LOC: EC 18:04 → 5MS5E 21:45
PROVIDERS: ADMIT Internal Medicine; ATTEND Internal Medicine
DX: A08.4 Viral intestinal infection, unspecified (principal); N17.0 Acute kidney failure with tubular necrosis; I13.0 Hypertensive heart and chronic kidney disease with heart failure and stage 1 through stage 4 chronic kidney disease, or unspecified chronic kidney disease; I50.32 Chronic diastolic (congestive) heart failure; E87.2 Acidosis; N39.0 Urinary tract infection, site not specified; E11.22 Type 2 diabetes mellitus with diabetic chronic kidney disease; E03.9 Hypothyroidism, unspecified; E78.5 Hyperlipidemia, unspecified; E86.0 Dehydration; E87.5 Hyperkalemia; F41.9 Anxiety disorder, unspecified; N18.3 Chronic kidney disease, stage 3 (moderate); M06.9 Rheumatoid arthritis, unspecified; Z79.52 Long term (current) use of systemic steroids; Z79.899 Other long term (current) drug therapy; Z82.49 Family history of ischemic heart disease and other diseases of the circulatory system; Z88.5 Allergy status to narcotic agent; Z88.2 Allergy status to sulfonamides
CPT/HCPCS: 36415; 71020; 76770; 80053; 82272; 82728; 83036; 83540; 83550; 83880; 84484; 85025; 85027; 85610; 85730; 86850; 86900; 86901; 87324; 87502; 93005; 96365; 96366; 96375; 99285

== ENCOUNTER 2016-10-21 22:44 | Emergency (ER) | payer MEDICARE ==
[2016-10-21] MEDS ORDERED: HYDROmorphone 1 MG/ML 1 ML SYRINGE IVP STA (23:25)
[2016-10-21 23:37] LABS: Basophils % (A) 0 %; CH 31.2; Eosinophils # (A) 0.2 k/uL (0-0.7); Eosinophils % (A) 3 %; HCT 26.5 % (34.0-46.0); HDW 2.95; HGB 8.8 gm/dL (11.4-16.0); Luc # (Auto) 0.11; Luc % (Auto) 2; Lymphocytes % (A) 16 %; MCH 31.6 pg (25.0-35.0); MCHC 33.3 g/dL (31.0-37.0); MCV 94.9 fL (80.0-100.0); Mean Platelet Volume 8.3; Monocytes # (A) 0.5 k/uL (0-1.0); Monocytes % (A) 8 %; Neutrophils # (A) 4.3 k/uL (1.3-7.7); Neutrophils % (A) 71 %; RBC 2.79 m/uL (3.80-5.40); RDW 14.4 % (11.5-15.5); WBC (Perox) 6.23
[2016-10-21 23:51] LABS: Potassium 4.5 mmol/L (3.5-5.1); Total Protein 5.6 g/dL (6.3-8.2)
[2016-10-21 23:52] LABS: Calcium 8.8 mg/dL (8.4-10.2); Total Bilirubin 0.4 mg/dL (0.2-1.3)
--- NOTE | 2016-10-22 00:25 | XR ---
EXAM: XR Abdomen, 1 View. CLINICAL HISTORY: Reason: abdominal pain TECHNIQUE: Frontal supine view of the abdomen/pelvis. COMPARISON: No relevant prior studies available. FINDINGS: Intraperitoneal space: No evidence of intraperitoneal free air. Gastrointestinal tract: Nonspecific bowel gas pattern. Stool and air in the colon. Other: Cholecystectomy clips. Pelvic calcific opacities, likely phleboliths. Bones/joints: Osseous degenerative changes. IMPRESSION: Nonspecific bowel gas pattern.
[2016-10-22] MEDS ORDERED: SODIUM CHLORIDE 0.9% 1,000 ML IV ONE ×2 (00:29→02:37)
[2016-10-22] MEDS ORDERED: SODIUM CHLORIDE 0.9% 1,000 ML IV SCH (00:30)
--- NOTE | 2016-10-22 00:31 | XR ---
EXAM: XR Chest, 2 Views. CLINICAL HISTORY: Reason: Pain TECHNIQUE: Frontal and lateral views of the chest. COMPARISON: 09/26/16. FINDINGS: Lungs: Pulmonary vascular congestion. Patchy atelectasis or infiltrates also noted. Pleural space: Unremarkable. No pneumothorax. Heart: Enlarged cardiomediastinal silhouette, appears more prominent compared to prior study, underlying pericardial effusion or other etiologies not excluded. Mediastinum: See above. Bones/joints: Stable. IMPRESSION: 1. Pulmonary vascular congestion. Correlate clinically for congestive heart failure. Patchy atelectasis or infiltrates also noted. 2. Enlarged cardiomediastinal silhouette, appears more prominent compared to prior study, underlying pericardial effusion or other etiologies not excluded. There is concern for aortic pathology, CT may be considered. [employer] 10/22/16 02:17 Call From [facility] AFSANEH
--- NOTE | 2016-10-22 00:55 | ED ---
General Adult HPI - General Chief complaint: Back Pain/Injury Stated complaint: back pain Time Seen by Provider: 10/21/16 23:15 Source: patient, family, RN notes reviewed, old records reviewed Mode of arrival: ambulatory Limitations: no limitations - History of Present Illness Initial comments: Patient is a 66-year-old female with a complex medical history with chief complaint of lower back pain and side pain. Patient reports that she was active all day today. She reports that she was laying down on her sofa and decided to get up and felt a sharp pain in her left flank. She denies any specific abdominal pain. Patient reports that she's had some trouble urinating as well. Patient ports that she's also noticed increased swelling over bilateral lower extremities. She reports that she cannot take her Lasix as she had hyperkalemia last time she was here. Patient has a past medical history of renal failure, diabetes, heart failure. Patient states that she has no chest pain or shortness of breath. She denies any fever or chills or headaches. Patient reports the emergency department with elevated blood pressure. She reports she's taken off her medications today. - Related Data Home Medications Medication Instructions Recorded Confirmed Omeprazole [PriLOSEC] 20 mg PO BID 02/20/14 10/21/16 predniSONE 10 mg PO DAILY 02/20/14 10/21/16 Cyanocobalamin [Vitamin B-12] 2,500 mcg PO DAILY 08/19/14 10/21/16 Ergocalciferol [Vitamin D2 50,000 unit PO WE 08/19/14 10/21/16 (DRISDOL)] Ferrous Sulfate [Iron (65 MG 325 mg PO HS 08/19/14 10/21/16 Elemental)] Calcitriol 0.25 mcg PO SUTUFR 01/07/15 10/21/16 Liothyronine Sodium [Cytomel] 5 mcg PO DAILY 01/07/15 10/21/16 ALPRAZolam [Xanax] 0.25 mg PO BID PRN 09/02/16 10/21/16 Carvedilol [Coreg] 25 mg PO BID 09/02/16 10/21/16 Gabapentin [Neurontin] 100 mg PO TID 09/02/16 10/21/16 Magnesium 200 mg PO HS 09/02/16 10/21/16 Morphine Sulfate ER [Ms Contin] 15 mg PO Q12HR 09/02/16 10/21/16 Simvastatin [Zocor] 40 mg PO HS 09/02/16 10/21/16 Lactobacillus Acidoph & Bulgar 1 packet PO BID 09/24/16 10/21/16 [Lactinex] Repaglinide [Prandin] 0.5 mg PO DAILY@1230 09/24/16 10/21/16 Repaglinide [Prandin] 1 mg PO DAILY@0730 09/24/16 10/21/16 HYDROcodone/APAP 10-325MG [[place] 1 tab PO Q3H PRN 09/25/16 10/21/16 10-325] Previous Rx's Medication Instructions Recorded Ondansetron Odt [Zofran ODT] 4 mg PO Q8HR PRN #15 tab 01/04/15 Levothyroxine Sodium [Synthroid] 25 mcg PO DAILY@0630 tab 01/12/15 Repaglinide [Prandin] 0.25 mg PO AC-SUPPER tab 09/05/16 Sodium Bicarbonate Tab 650 mg PO BID #60 tab 09/28/16 Allergies Allergy/AdvReac Type Severity Reaction Status Date / Time codeine Allergy Rash/Hives Verified 10/21/16 22:52 Sulfa (Sulfonamide Allergy Rash/Hives Verified 10/21/16 22:52 Antibiotics) gold Allergy Unknown Uncoded 10/21/16 22:52 Review of Systems ROS Statement: Those systems with pertinent positive or pertinent negative responses have been documented in the HPI. ROS Other: All systems not noted in ROS Statement are negative. Past Medical History Past Medical History: Hyperlipidemia, Renal Disease, Thyroid Disorder Additional Past Medical History / Comment(s): low vitamin d levels which caused renal deficiency, parathyroid overactive related to low vit d levels, chronic prednisone secondary to RA followed by Dr. Marlow, ANEMIA,COMPRESSION FX L1, PAST FALL. of lithiasis, Csection, gall bladder History of Any Multi-Drug Resistant Organisms: None Reported Past Surgical History: Orthopedic Surgery Additional Past Surgical History / Comment(s): right knee TKA 2, carpel tunnel , CYST REMOVED (NECK) AGE 6 Past Anesthesia/Blood Transfusion Reactions: No Reported Reaction Past Psychological History: Anxiety Smoking Status: Never smoker Past Alcohol Use History: None Reported Past Drug Use History: None Reported - Past Family History Mother Additional Family Medical History / Comment(s): addisons disease Father Family Medical History: Hypertension General Exam - General Exam Comments Initial Comments: Pleasant 66-year-old female. No distress. Limitations: no limitations General appearance: alert, in no apparent distress Head exam: Present: atraumatic, normocephalic, normal inspection Eye exam: Present: normal appearance, PERRL, EOMI. Absent: scleral icterus, conjunctival injection, periorbital swelling ENT exam: Present: normal exam, normal oropharynx, mucous membranes moist, TM's normal bilaterally Neck exam: Present: normal inspection. Absent: tenderness, meningismus, lymphadenopathy Respiratory exam: Present: normal lung sounds bilaterally. Absent: respiratory distress, wheezes, rales, rhonchi, stridor Cardiovascular Exam: Present: regular rate, normal rhythm, normal heart sounds. Absent: systolic murmur, diastolic murmur, rubs, gallop, clicks GI/Abdominal exam: Present: soft, normal bowel sounds. Absent: distended, tenderness, guarding, rebound, rigid Extremities exam: Present: normal inspection, full ROM, normal capillary refill , pedal edema (Bilateral pedal edema.). Absent: tenderness, joint swelling, calf tenderness Back exam: Present: normal inspection Neurological exam: Present: alert, oriented X3, CN II-XII intact Psychiatric exam: Present: normal affect, normal mood Skin exam: Present: warm, dry, intact, normal color. Absent: rash Course Vital Signs 10/21/16 10/21/16 10/22/16 22:50 23:55 00:24 Temperature 98.3 F Pulse Rate 85 78 74 Respiratory 18 18 18 Rate Blood Pressure 220/95 215/88 199/82 O2 Sat by Pulse 97 98 97 Oximetry 10/22/16 10/22/16 10/22/16 01:43 02:06 02:52 Temperature 97.9 F Pulse Rate 81 75 83 Respiratory 18 20 18 Rate Blood Pressure 213/89 220/89 196/86 O2 Sat by Pulse 97 95 97 Oximetry 10/22/16 10/22/16 03:37 04:11 Temperature 98.4 F Pulse Rate 84 88 Respiratory 18 18 Rate Blood Pressure 180/86 184/88 O2 Sat by Pulse 95 97 Oximetry Medical Decision Making - Medical Decision Making Patient 66-year-old female with history of renal failure. She reports that she has lower back thoracic back pain after getting up from her couch today. Patient is given IV Dilaudid and IV fluids and she reports that her back pain continue to remain the same after that. Patient's blood pressure is been elevated to 220/100. Patient was given IV labetalol, Ativan and a second milligram of Dilaudid and blood pressure continues to remain elevated. Patient' s chest x-ray shows significantly widened mediastinum compared to previous chest x-ray. I discussed this case with Dr. Connor there could be a concern of a possible aortic dissection. With the benefits and risks of doing IV contrast with her history of poor kidney function. Was felt that it would be best to rule out possibility of dissection given her consistent back pain and widening mediastinum. We did use a lower dose of IV contrast bending usual circumstances. Patient was then hydrated afterwards with normal saline. CT scan reviewed, negative for any dissection or other acute abnormalities. Patient does have degenerative disc disease. Patient reports that her pain is better at this time and blood pressure has dropped to 180/100. I offered patient admission for further work up for leg swelling, but patient states she wants to go home an thinks this is musculoskeletal pain. Patient has been advised to take at home pain medicatoin and follow up on fam with PCP about Fluid retention and the back pain today. Patient agrees with treatment plan and will comply. - Lab Data Result diagrams: 10/21/16 23:30 10/21/16 23:30 Lab Results 10/21/16 10/21/16 10/21/16 Range/Units 23:30 23:30 23:30 WBC 6.0 (3.8-10.6) k/uL RBC 2.79 L (3.80-5.40) m/uL Hgb 8.8 L (11.4-16.0) gm/dL Hct 26.5 L (34.0-46.0) % MCV 94.9 (80.0-100.0) fL MCH 31.6 (25.0-35.0) pg MCHC 33.3 (31.0-37.0) g/dL RDW 14.4 (11.5-15.5) % Plt Count 159 (150-450) k/uL Neutrophils % 71 % Lymphocytes % 16 % Monocytes % 8 % Eosinophils % 3 % Basophils % 0 % Neutrophils # 4.3 (1.3-7.7) k/uL Lymphocytes # 1.0 (1.0-4.8) k/uL Monocytes # 0.5 (0-1.0) k/uL Eosinophils # 0.2 (0-0.7) k/uL Basophils # 0.0 (0-0.2) k/uL PT (9.0-12.0) sec INR (<1.1) APTT (22.0-30.0) sec Sodium 143 (137-145) mmol/L Potassium 4.5 (3.5-5.1) mmol/L Chloride 107 (98-107) mmol/L Carbon Dioxide 26 (22-30) mmol/L Anion Gap 10 mmol/L BUN 32 H (7-17) mg/dL Creatinine 1.30 H (0.52-1.04) mg/dL Est GFR (MDRD) Af Amer 50 (>60 ml/min/1.73 sqM) Est GFR (MDRD) Non-Af 41 (>60 ml/min/1.73 sqM) Glucose 94 (74-99) mg/dL Calcium 8.8 (8.4-10.2) mg/dL Total Bilirubin 0.4 (0.2-1.3) mg/dL AST 14 (14-36) U/L ALT 28 (9-52) U/L Alkaline Phosphatase 108 (38-126) U/L Total Creatine Kinase <20 L (30-135) U/L CK-MB (CK-2) 1.0 (0.0-2.4) ng/mL CK-MB (CK-2) Rel Index 0.0 Troponin I <0.012 (0.000-0.034) ng/mL Total Protein 5.6 L (6.3-8.2) g/dL Albumin 3.2 L (3.5-5.0) g/dL Amylase 44 (30-110) U/L Lipase 143 (23-300) U/L Urine Color Urine Appearance (Clear) Urine pH (5.0-8.0) Ur Specific [place] (1.001-1.035) Urine Protein (Negative) Urine Glucose (UA) (Negative) Urine Ketones (Negative) Urine Blood (Negative) Urine Nitrite (Negative) Urine Bilirubin (Negative) Urine Urobilinogen (<2.0) mg/dL Ur Leukocyte Esterase (Negative) Urine RBC (0-5) /hpf Urine WBC (0-5) /hpf Ur Squamous Epith Cells (0-4) /hpf Urine Bacteria (None) /hpf 10/21/16 10/22/16 Range/Units 23:30 00:35 WBC (3.8-10.6) k/uL RBC (3.80-5.40) m/uL Hgb (11.4-16.0) gm/dL Hct (34.0-46.0) % MCV (80.0-100.0) fL MCH (25.0-35.0) pg MCHC (31.0-37.0) g/dL RDW (11.5-15.5) % Plt Count (150-450) k/uL Neutrophils % % Lymphocytes % % Monocytes % % Eosinophils % % Basophils % % Neutrophils # (1.3-7.7) k/uL Lymphocytes # (1.0-4.8) k/uL Monocytes # (0-1.0) k/uL Eosinophils # (0-0.7) k/uL Basophils # (0-0.2) k/uL PT 10.4 (9.0-12.0) sec INR 1.0 (<1.1) APTT 21.6 L (22.0-30.0) sec Sodium (137-145) mmol/L Potassium (3.5-5.1) mmol/L Chloride (98-107) mmol/L Carbon Dioxide (22-30) mmol/L Anion Gap mmol/L BUN (7-17) mg/dL Creatinine (0.52-1.04) mg/dL Est GFR (MDRD) Af Amer (>60 ml/min/1.73 sqM) Est GFR (MDRD) Non-Af (>60 ml/min/1.73 sqM) Glucose (74-99) mg/dL Calcium (8.4-10.2) mg/dL Total Bilirubin (0.2-1.3) mg/dL AST (14-36) U/L ALT (9-52) U/L Alkaline Phosphatase (38-126) U/L Total Creatine Kinase (30-135) U/L CK-MB (CK-2) (0.0-2.4) ng/mL CK-MB (CK-2) Rel Index Troponin I (0.000-0.034) ng/mL Total Protein (6.3-8.2) g/dL Albumin (3.5-5.0) g/dL Amylase (30-110) U/L Lipase (23-300) U/L Urine Color Light Yellow Urine Appearance Clear (Clear) Urine pH 6.5 (5.0-8.0) Ur Specific [place] 1.008 (1.001-1.035) Urine Protein 2+ H (Negative) Urine Glucose (UA) Negative (Negative) Urine Ketones Negative (Negative) Urine Blood Trace H (Negative) Urine Nitrite Negative (Negative) Urine Bilirubin Negative (Negative) Urine Urobilinogen <2.0 (<2.0) mg/dL Ur Leukocyte Esterase Small H (Negative) Urine RBC 4 (0-5) /hpf Urine WBC 3 (0-5) /hpf Ur Squamous Epith Cells 2 (0-4) /hpf Urine Bacteria Rare H (None) /hpf 10/22/16 03:01 EKG performed at 201 shows normal sinus rhythm. Ventricular rate 74 bpm. Normal 166. Stressors and 74 ms. No evidence of ST elevation or T-wave inversion. No other atrial or ventricular arrhythmias. - Radiology Data Radiology results: report reviewed Pulmonary vascular congestion. Correlate clinically for congestive heart failure. Patchy atelectasis or infiltrates also noted. The largest cardio mediastinal silhouette, appears prominent compared to prior study. . Pleural effusion or other etiologies cannot exclude. There is concern for aortic pathology CT may be considered. KUB shows nonspecific bowel gas pattern. CT ALVA chest shows no evidence of pulmonary embolism or aortic dissection. Patchy groundglass densities at the areas of septal thickening can be seen with pulmonary edema. Trace right pleural effusion. Cardiomegaly. Trace pericardial fluid. Age-indeterminate compression deformities at T3 and T8 vertebral bodies. CT angiogram of the abdomen shows no aortic aneurysm or dissection. Fluid in the stomach and small bowel loops are nonspecific be seen with gastroenteritis the appropriate clinical setting. No evidence of bowel obstruction. Disposition Clinical Impression: Left low back pain Disposition: HOME SELF-CARE Condition: Good Instructions: Acute Low Back Pain (ED) Additional Instructions: Patient advised to apply heating pads over the lower back. Continue to take at home pain medication. Remain hydrated. Follow-up with Dr. Butler on Sunday, discuss adding Lasix back to regimen. Patient denies to elevate feet tomorrow. Return to the emergency department if any alarming signs or symptoms occur. Referrals: Fay Lerner MD [Primary Care Provider] - 1-2 days Time of Disposition: 03:57
[2016-10-22 00:58] LABS: Appearance,Urine Clear (Clear); Bacteria,Urine Rare /hpf; Bilirubin,Urine Negative (Negative); Glucose,Urine (UA) Negative (Negative); Ketones,Urine Negative (Negative); Leukocyte Esterase,Urine Small (Negative); Nitrite,Urine Negative (Negative); PH, Urine 6.5 (5.0-8.0); Particle Count 1192; Protein,Urine 2+ (Negative); RBC,Urine 4 /hpf (0-5); Specific Gravity,Urine 1.008 (1.001-1.035); Squamous Epithelial Cell,Urine 2 /hpf (0-4); UA Billing (MACRO vs. MICRO) MICRO; Urobilinogen,Urine <2.0 mg/dL (<2.0); WBC,Urine 3 /hpf (0-5)
[2016-10-22] MEDS ORDERED: LABETALOL 5 MG/ML VIAL MDV IVP STA ×2 (01:45→02:55)
[2016-10-22] MEDS ORDERED: HYDROmorphone 1 MG/ML 1 ML SYRINGE IVP STA ×2 (01:45→03:55)
[2016-10-22] MEDS ORDERED: RX INFO: IV CONTRAST WAS GIVEN 1 EACH MISC MISCELLANE PRN (01:46)
[2016-10-22] MEDS ORDERED: LORazepam 2 MG/ML SYRINGE IV STA (01:57)
[2016-10-22 02:22] LABS: Creatine Kinase <20 U/L (30-135)
[2016-10-22 02:28] LABS: Prothrombin Time 10.4 sec (9.0-12.0)
[2016-10-22 02:35] LABS: Partial Thromboplastin Time 21.6 sec (22.0-30.0); Troponin I <0.012 ng/mL (0.000-0.034)
[2016-10-22 03:09] VITALS: RESP 18
--- NOTE | 2016-10-22 03:23 | CT ---
EXAM: CT Angiography Chest Without and With Intravenous Contrast. CLINICAL HISTORY: Reason: Pain TECHNIQUE: Axial computed tomographic angiography images of the chest without and with intravenous contrast using pulmonary embolism protocol. CTDI is 12. 6, 7.1, 115.1, and 12.6 mGy and DLP is 1273.6 mGy-cm This CT exam was performed using one or more of the following dose reduction techniques: automated exposure control, adjustment of the mA and/or kV according to patient size, and/or use of iterative reconstruction technique. MIP reconstructed images were created and reviewed. COMPARISON: No relevant prior studies available. FINDINGS: Limitations: Limited [id number] with portions of the right greater than left posterior lower chest not included. Pulmonary arteries: Unremarkable. No pulmonary embolism. Aorta: Atherosclerotic disease. No aortic aneurysm or dissection. Lungs: Patchy groundglass densities and areas of septal thickening, can be seen with pulmonary edema. Mild peribronchial thickening. Pleural space: Trace right pleural effusion. Heart: Cardiomegaly. Trace pericardial fluid. Bones/joints: Age indeterminate compression deformities in the spine, particularly involving the T3 and T8 vertebral bodies. Chronic appearing bilateral rib fractures. Soft tissues: Unremarkable. Lymph nodes: Unremarkable. IMPRESSION: 1. No evidence of pulmonary embolism or aortic dissection. 2. Patchy groundglass densities and areas of septal thickening, can be seen with pulmonary edema. Correlate clinically to exclude an infectious process. 3. Trace right pleural effusion. 4. Cardiomegaly. Trace pericardial fluid. 5. Age indeterminate compression deformities of the T3 and T8 vertebral bodies. EXAM: CT Angiography Abdomen Without and With Intravenous Contrast. CLINICAL HISTORY: Reason: Pain TECHNIQUE: Axial computed tomographic angiography images of the abdomen without and with intravenous contrast. CTDI is 12.6, 7.1, 115.1, and 12.6 mGy and DLP is 1273.6 mGy-cm. This CT exam was performed using one or more of the following dose reduction techniques: automated exposure control, adjustment of the mA and/or kV according to patient size, and/or use of iterative reconstruction technique. MIP reconstructed images were created and reviewed. COMPARISON: CT 08/19/14. FINDINGS: Limitations: Limited [id number] with portions of the right posterior abdomen not included. Aorta: Atherosclerotic disease with narrowing of the origins of the branch vessels, which remain patent. No abdominal aortic aneurysm. No dissection. Liver: Visualized portions unremarkable. Gallbladder and bile ducts: Prior cholecystectomy. Pancreas: Unremarkable. Spleen: Unremarkable. Adrenals: Unremarkable. Kidneys and ureters: Nonspecific bilateral perinephric stranding. Prominence of the left greater than right renal collecting systems without evidence of ureteral stone. Stomach and bowel: Scattered colonic diverticula. Distended fluid- filled stomach. Fluid in nondistended small bowel loops. No evidence of bowel obstruction. Intraperitoneal space: Unremarkable. No significant fluid collection. No free air. Bones/joints: Chronic compression deformity of the L1 vertebral body. Degenerative changes. Soft tissues: Unremarkable. Lymph nodes: Unremarkable. IMPRESSION: 1. No aortic aneurysm or dissection. 2. Fluid in the stomach and small bowel loops, nonspecific, can be seen with gastroenteritis in the appropriate clinical setting. No evidence of bowel obstruction.
[2016-10-22] MEDS ORDERED: ORPHENADRINE 30 MG/ML 2 ML VIAL IVP STA (03:55)
[2016-10-22 04:12] VITALS: BP 184/88; PULSE 88; TEMP 98.4
== END 2016-10-22 04:14 | disposition home or self-care (01) ==
LOC: EC 22:44
DX: M54.5 Low back pain (principal); R10.9 Unspecified abdominal pain; M79.89 Other specified soft tissue disorders; E78.5 Hyperlipidemia, unspecified; E07.9 Disorder of thyroid, unspecified; F41.9 Anxiety disorder, unspecified; E11.29 Type 2 diabetes mellitus with other diabetic kidney complication; I50.9 Heart failure, unspecified; N19 Unspecified kidney failure; Z53.20 Procedure and treatment not carried out because of patient's decision for unspecified reasons; Z79.899 Other long term (current) drug therapy; Z88.5 Allergy status to narcotic agent; Z88.2 Allergy status to sulfonamides; Z91.048 Other nonmedicinal substance allergy status
CPT/HCPCS: 99284; 96374; 96375 ×2; 96376 ×2; 96361 ×4; 36415; 93005; 80053; 82150; 82550; 82553; 83690; 84484; 85025; 85610; 85730; 81001; 71020; 74000; 75635; 71275; J2060; Q9967; J1170 ×2

== ENCOUNTER 2016-11-01 04:53 | Emergency (ER) | payer MEDICARE ==
[2016-11-01] MEDS ORDERED: diphenhydrAMINE 50 MG/ML 1 ML VIAL IVP STA (05:15)
[2016-11-01] MEDS ORDERED: SODIUM CHLORIDE 0.9% 500 ML IV ONE (05:15)
[2016-11-01] MEDS ORDERED: PROMETHAZINE INJ 25 MG/ML 1 ML VIAL IVPB STA (05:15)
--- NOTE | 2016-11-01 05:21 | ED ---
General Adult HPI - General Chief complaint: Headache Stated complaint: migraine,nausea Time Seen by Provider: 11/01/16 05:00 Source: patient, family, RN notes reviewed Mode of arrival: wheelchair Limitations: no limitations - History of Present Illness Initial comments: This is a 66-year-old female who presents to the emergency department complaining of a headache. Patient states headache started yesterday has across the whole front of her head. Patient states she very nauseated. Patient has not yet vomited. Patient denies being sensitive to light patient denies any area of numbness or weakness. Patient states she used to have a history of migraines but hasn't had one for years. Patient denies any recent fever chills or cough patient denies any abdominal pain. Patient denies any chest pain patient denies any shortness of breath or difficulty breathing. Patient's blood pressure was elevated she states always goes up high when she is in pain. Patient denies any neck pain or stiffness. - Related Data Home Medications Medication Instructions Recorded Confirmed Omeprazole [PriLOSEC] 20 mg PO BID 02/20/14 10/21/16 predniSONE 10 mg PO DAILY 02/20/14 10/21/16 Cyanocobalamin [Vitamin B-12] 2,500 mcg PO DAILY 08/19/14 10/21/16 Ergocalciferol [Vitamin D2 50,000 unit PO WE 08/19/14 10/21/16 (DRISDOL)] Ferrous Sulfate [Iron (65 MG 325 mg PO HS 08/19/14 10/21/16 Elemental)] Calcitriol 0.25 mcg PO SUTUFR 01/07/15 10/21/16 Liothyronine Sodium [Cytomel] 5 mcg PO DAILY 01/07/15 10/21/16 ALPRAZolam [Xanax] 0.25 mg PO BID PRN 09/02/16 10/21/16 Carvedilol [Coreg] 25 mg PO BID 09/02/16 10/21/16 Gabapentin [Neurontin] 100 mg PO TID 09/02/16 10/21/16 Magnesium 200 mg PO HS 09/02/16 10/21/16 Morphine Sulfate ER [Ms Contin] 15 mg PO Q12HR 09/02/16 10/21/16 Simvastatin [Zocor] 40 mg PO HS 09/02/16 10/21/16 Lactobacillus Acidoph & Bulgar 1 packet PO BID 09/24/16 10/21/16 [Lactinex] Repaglinide [Prandin] 0.5 mg PO DAILY@1230 09/24/16 10/21/16 Repaglinide [Prandin] 1 mg PO DAILY@0730 09/24/16 10/21/16 HYDROcodone/APAP 10-325MG [[place] 1 tab PO Q3H PRN 09/25/16 10/21/16 10-325] Previous Rx's Medication Instructions Recorded Ondansetron Odt [Zofran ODT] 4 mg PO Q8HR PRN #15 tab 01/04/15 Levothyroxine Sodium [Synthroid] 25 mcg PO DAILY@0630 tab 01/12/15 Repaglinide [Prandin] 0.25 mg PO AC-SUPPER tab 09/05/16 Sodium Bicarbonate Tab 650 mg PO BID #60 tab 09/28/16 Allergies Allergy/AdvReac Type Severity Reaction Status Date / Time codeine Allergy Rash/Hives Verified 11/01/16 04:58 Sulfa (Sulfonamide Allergy Rash/Hives Verified 11/01/16 04:58 Antibiotics) gold Allergy Unknown Uncoded 11/01/16 04:58 Review of Systems ROS Statement: Those systems with pertinent positive or pertinent negative responses have been documented in the HPI. ROS Other: All systems not noted in ROS Statement are negative. Past Medical History Past Medical History: Hyperlipidemia, Renal Disease, Thyroid Disorder Additional Past Medical History / Comment(s): low vitamin d levels which caused renal deficiency, parathyroid overactive related to low vit d levels, chronic prednisone secondary to RA followed by Dr. Marlow, ANEMIA,COMPRESSION FX L1, PAST FALL. of lithiasis, Csection, gall bladder History of Any Multi-Drug Resistant Organisms: None Reported Past Surgical History: Orthopedic Surgery Additional Past Surgical History / Comment(s): right knee TKA 2, carpel tunnel , CYST REMOVED (NECK) AGE 6 Past Anesthesia/Blood Transfusion Reactions: No Reported Reaction Past Psychological History: Anxiety Smoking Status: Never smoker Past Alcohol Use History: None Reported Past Drug Use History: None Reported - Past Family History Mother Additional Family Medical History / Comment(s): addisons disease Father Family Medical History: Hypertension General Exam - General Exam Comments Initial Comments: GENERAL: Patient is well-developed and well-nourished. Patient is nontoxic and well- hydrated and is in mild distress. ENT: Neck is soft and supple. No significant lymphadenopathy is noted. Oropharynx is clear. Moist mucous membranes. Neck has full range of motion without eliciting any pain. EYES: The sclera were anicteric and conjunctiva were pink and moist. Extraocular movements were intact and pupils were equal round and reactive to light. Eyelids were unremarkable. PULMONARY: Unlabored respirations. Good breath sounds bilaterally. No audible rales rhonchi or wheezing was noted. CARDIOVASCULAR: There is a regular rate and rhythm without any murmurs gallops or rubs. ABDOMEN: Soft and nontender with normal bowel sounds. SKIN: Skin is clear with no lesions or rashes and otherwise unremarkable. NEUROLOGIC: Patient is alert and oriented x3. Cranial nerves II through XII are grossly intact. Motor and sensory are also intact. Normal speech, volume and content. Symmetrical smile. MUSCULOSKELETAL: Normal extremities with adequate strength and full range of motion. LYMPHATICS: No significant lymphadenopathy is noted PSYCHIATRIC: Normal psychiatric evaluation. Limitations: no limitations Course Vital Signs 11/01/16 11/01/16 11/01/16 04:56 05:44 05:45 Temperature 97.8 F Pulse Rate 83 77 77 Respiratory 20 18 18 Rate Blood Pressure 223/94 205/92 198/88 O2 Sat by Pulse 96 90 L 97 Oximetry 11/01/16 11/01/16 11/01/16 06:06 06:13 06:22 Temperature 98.3 F Pulse Rate 76 78 73 Respiratory 18 Rate Blood Pressure 219/95 190/84 180/82 O2 Sat by Pulse 100 99 99 Oximetry 11/01/16 11/01/16 11/01/16 06:24 06:43 06:50 Temperature 98.4 F Pulse Rate 76 79 78 Respiratory 18 18 Rate Blood Pressure 179/83 151/67 153/72 O2 Sat by Pulse 99 99 99 Oximetry Medical Decision Making - Medical Decision Making EKG shows a normal sinus rhythm at 75 bpm OH interval 260 QRS is 70 QT interval 380 QTC is 433. Patient's EKG shows no ST segment elevation or depression or T wave abnormalities are noted. I went back into reevaluate the patient patient's blood pressure systolically was in the 150s. Patient states her headache was a was completely gone. Patient stated she felt comfortable to go home. - Lab Data Result diagrams: 11/01/16 05:32 11/01/16 05:32 Lab Results 11/01/16 11/01/16 Range/Units 05:32 05:32 WBC 6.1 (3.8-10.6) k/uL RBC 3.13 L (3.80-5.40) m/uL Hgb 9.8 L (11.4-16.0) gm/dL Hct 29.3 L (34.0-46.0) % MCV 93.6 (80.0-100.0) fL MCH 31.2 (25.0-35.0) pg MCHC 33.3 (31.0-37.0) g/dL RDW 14.5 (11.5-15.5) % Plt Count 143 L (150-450) k/uL Neutrophils % 66 % Lymphocytes % 17 % Monocytes % 8 % Eosinophils % 7 % Basophils % 0 % Neutrophils # 4.0 (1.3-7.7) k/uL Lymphocytes # 1.1 (1.0-4.8) k/uL Monocytes # 0.5 (0-1.0) k/uL Eosinophils # 0.4 (0-0.7) k/uL Basophils # 0.0 (0-0.2) k/uL Sodium 141 (137-145) mmol/L Potassium 4.0 (3.5-5.1) mmol/L Chloride 103 (98-107) mmol/L Carbon Dioxide 31 H (22-30) mmol/L Anion Gap 7 mmol/L BUN 32 H (7-17) mg/dL Creatinine 1.24 H (0.52-1.04) mg/dL Est GFR (MDRD) Af Amer 53 (>60 ml/min/1.73 sqM) Est GFR (MDRD) Non-Af 44 (>60 ml/min/1.73 sqM) Glucose 119 H (74-99) mg/dL Calcium 8.9 (8.4-10.2) mg/dL Total Bilirubin 0.6 (0.2-1.3) mg/dL AST 15 (14-36) U/L ALT 24 (9-52) U/L Alkaline Phosphatase 93 (38-126) U/L Total Protein 6.0 L (6.3-8.2) g/dL Albumin 3.3 L (3.5-5.0) g/dL Disposition Clinical Impression: Hypertension, Acute headache Disposition: HOME SELF-CARE Condition: Good Instructions: Acute Headache (ED), Hypertension (ED) Referrals: Fay Lerner MD [Primary Care Provider] - 1-2 days Time of Disposition: 07:02
[2016-11-01] MEDS ORDERED: ONDANSETRON 4 MG/2 ML VIAL IVP STA (05:30)
[2016-11-01 05:45] VITALS: RESP 18
[2016-11-01 05:49] LABS: Basophils % (A) 0 %; CH 30.9; CHCM 33.1; Eosinophils # (A) 0.4 k/uL (0-0.7); Eosinophils % (A) 7 %; HCT 29.3 % (34.0-46.0); HDW 3.03; HGB 9.8 gm/dL (11.4-16.0); Luc # (Auto) 0.09; Luc % (Auto) 2; Lymphocytes # (A) 1.1 k/uL (1.0-4.8); Lymphocytes % (A) 17 %; MCH 31.2 pg (25.0-35.0); MCHC 33.3 g/dL (31.0-37.0); MCV 93.6 fL (80.0-100.0); Mean Platelet Volume 7.5; Monocytes # (A) 0.5 k/uL (0-1.0); Monocytes % (A) 8 %; Neutrophils % (A) 66 %; RBC 3.13 m/uL (3.80-5.40); RDW 14.5 % (11.5-15.5); WBC 6.1 k/uL (3.8-10.6); WBC (Perox) 6.35
[2016-11-01 05:58] LABS: Calcium 8.9 mg/dL (8.4-10.2); Total Bilirubin 0.6 mg/dL (0.2-1.3)
[2016-11-01] MEDS ORDERED: ZIPRASIDONE 20 MG VIAL IM STA (06:04)
[2016-11-01] MEDS ORDERED: hydrALAZINE HCL 20 MG/ML 1 ML VIAL IVP STA (06:16)
--- NOTE | 2016-11-01 06:37 | CT ---
EXAM: CT Head Without Intravenous Contrast CLINICAL HISTORY: Reason: Pain, nausea TECHNIQUE: Axial computed tomography images of the head/brain without intravenous contrast. Coronal and sagittal reformats were reviewed. CTDI is 57.40 mGy and DLP is 1133.30 mGy-cm This CT exam was performed using one or more of the following dose reduction techniques: automated exposure control, adjustment of the mA and/or kV according to patient size, and/or use of iterative reconstruction technique. COMPARISON: Head CT 03/15/14 FINDINGS: Brain: Unremarkable. No hemorrhage. No significant white matter disease. No edema. Ventricles: Unremarkable. No ventriculomegaly. Bones/joints: Osteopenic. No acute fracture. Soft tissues: Unremarkable. Sinuses: Unremarkable as visualized. No acute sinusitis. Mastoid air cells: Unremarkable as visualized. No mastoid effusion. IMPRESSION: No acute intracranial abnormality
[2016-11-01] MEDS ORDERED: KETOROLAC 60 MG/2 ML VIAL IVP STA (06:43)
[2016-11-01 07:19] VITALS: BP 136/65; PULSE 81; TEMP 98.2
== END 2016-11-01 07:20 | disposition home or self-care (01) ==
LOC: EC 04:53
DX: I10 Essential (primary) hypertension (principal); R51 Headache; R11.0 Nausea; E07.9 Disorder of thyroid, unspecified; D64.9 Anemia, unspecified; M06.9 Rheumatoid arthritis, unspecified; E78.5 Hyperlipidemia, unspecified; Z88.5 Allergy status to narcotic agent; Z88.2 Allergy status to sulfonamides; Z91.048 Other nonmedicinal substance allergy status; Z79.52 Long term (current) use of systemic steroids; Z79.899 Other long term (current) drug therapy
CPT/HCPCS: 99284; 96374; 96375 ×3; 36415; 93005; 80053; 85025; 70450; J0360; J1200; J2405; J1885

== ENCOUNTER 2016-11-08 04:56 | Emergency (ER) | payer MEDICARE ==
[2016-11-08 05:08] VITALS: TEMP 98.1
[2016-11-08 05:27] LABS: Basophils % (A) 1 %; CHCM 32.1; Eosinophils # (A) 0.3 k/uL (0-0.7); Eosinophils % (A) 5 %; HDW 2.69; HGB 9.6 gm/dL (11.4-16.0); Luc # (Auto) 0.09; Luc % (Auto) 1; Lymphocytes # (A) 1.2 k/uL (1.0-4.8); Lymphocytes % (A) 17 %; MCV 96.9 fL (80.0-100.0); Mean Platelet Volume 7.9; Monocytes # (A) 0.4 k/uL (0-1.0); Monocytes % (A) 5 %; Neutrophils # (A) 4.9 k/uL (1.3-7.7); Neutrophils % (A) 71 %; RDW 14.8 % (11.5-15.5); WBC 6.9 k/uL (3.8-10.6); WBC (Perox) 6.75
[2016-11-08 05:38] LABS: Potassium 4.4 mmol/L (3.5-5.1); Total Bilirubin 0.3 mg/dL (0.2-1.3); Total Protein 5.9 g/dL (6.3-8.2)
[2016-11-08 05:47] LABS: Creatine Kinase <20 U/L (30-135)
[2016-11-08] MEDS ORDERED: HYDROmorphone 1 MG/ML 1 ML SYRINGE IVP STA (05:52)
[2016-11-08] MEDS ORDERED: LORazepam 2 MG/ML SYRINGE IV STA (05:52)
[2016-11-08] MEDS ORDERED: ONDANSETRON 4 MG/2 ML VIAL IVP STA (05:52)
[2016-11-08 05:59] LABS: Creatine Kinase MB 1.5 ng/mL (0.0-2.4); Troponin I <0.012 ng/mL (0.000-0.034)
--- NOTE | 2016-11-08 05:59 | XR ---
EXAM: XR Chest, 1 View CLINICAL HISTORY: Reason: Chest Pain TECHNIQUE: Frontal view of the chest. COMPARISON: CT chest 10/22/2016 FINDINGS: Lungs: Hypoventilatory examination. No focal consolidation. Pleural space: Unremarkable. No pneumothorax. Heart: Stable cardiomediastinal silhouette. Mediastinum: See above. Bones/joints: No acute osseous abnormality. IMPRESSION: Hypoventilatory examination without evidence of acute cardiopulmonary disease.
--- NOTE | 2016-11-08 06:00 | ED ---
General Adult HPI - General Chief complaint: Chest Pain Stated complaint: chest pain,nausea Time Seen by Provider: 11/08/16 05:15 Source: patient, RN notes reviewed, old records reviewed Mode of arrival: ambulatory Limitations: no limitations - History of Present Illness Initial comments: This is a 66-year-old female here for evaluation. The patient presents here today for evaluation of chest pain. Chest pain shortness of breath. Anxious, patient is very anxious at this time. Patient's significant history of heart disease, heart failure. High blood pressure high cholesterol. She still denies history of prior [place] or stent. She has had some nausea no vomiting. No fevers no cough no congestion. No abdominal pain - Related Data Home Medications Medication Instructions Recorded Confirmed Omeprazole [PriLOSEC] 20 mg PO BID 02/20/14 10/21/16 predniSONE 10 mg PO DAILY 02/20/14 10/21/16 Cyanocobalamin [Vitamin B-12] 2,500 mcg PO DAILY 08/19/14 10/21/16 Ergocalciferol [Vitamin D2 50,000 unit PO WE 08/19/14 10/21/16 (DRISDOL)] Ferrous Sulfate [Iron (65 MG 325 mg PO HS 08/19/14 10/21/16 Elemental)] Calcitriol 0.25 mcg PO SUTUFR 01/07/15 10/21/16 Liothyronine Sodium [Cytomel] 5 mcg PO DAILY 01/07/15 10/21/16 ALPRAZolam [Xanax] 0.25 mg PO BID PRN 09/02/16 10/21/16 Carvedilol [Coreg] 25 mg PO BID 09/02/16 10/21/16 Gabapentin [Neurontin] 100 mg PO TID 09/02/16 10/21/16 Magnesium 200 mg PO HS 09/02/16 10/21/16 Morphine Sulfate ER [Ms Contin] 15 mg PO Q12HR 09/02/16 10/21/16 Simvastatin [Zocor] 40 mg PO HS 09/02/16 10/21/16 Lactobacillus Acidoph & [place] 1 packet PO BID 09/24/16 10/21/16 [Lactinex] Repaglinide [Prandin] 0.5 mg PO DAILY@1230 09/24/16 10/21/16 Repaglinide [Prandin] 1 mg PO DAILY@0730 09/24/16 10/21/16 HYDROcodone/APAP 10-325MG [[place] 1 tab PO Q3H PRN 09/25/16 10/21/16 10-325] Previous Rx's Medication Instructions Recorded Ondansetron Odt [Zofran ODT] 4 mg PO Q8HR PRN #15 tab 01/04/15 Levothyroxine Sodium [Synthroid] 25 mcg PO DAILY@0630 tab 01/12/15 Repaglinide [Prandin] 0.25 mg PO AC-SUPPER tab 09/05/16 Sodium Bicarbonate Tab 650 mg PO BID #60 tab 09/28/16 Allergies Allergy/AdvReac Type Severity Reaction Status Date / Time codeine Allergy Rash/Hives Verified 11/08/16 05:07 Sulfa (Sulfonamide Allergy Rash/Hives Verified 11/08/16 05:07 Antibiotics) gold Allergy Unknown Uncoded 11/08/16 05:07 Review of Systems ROS Statement: Those systems with pertinent positive or pertinent negative responses have been documented in the HPI. ROS Other: All systems not noted in ROS Statement are negative. Past Medical History Past Medical History: Hyperlipidemia, Renal Disease, Thyroid Disorder Additional Past Medical History / Comment(s): low vitamin d levels which caused renal deficiency, parathyroid overactive related to low vit d levels, chronic prednisone secondary to RA followed by Dr. Marlow, ANEMIA,COMPRESSION FX L1, PAST FALL. of lithiasis, Csection, gall bladder History of Any Multi-Drug Resistant Organisms: None Reported Past Surgical History: Orthopedic Surgery Additional Past Surgical History / Comment(s): right knee TKA 2, carpel tunnel , CYST REMOVED (NECK) AGE 6 Past Anesthesia/Blood Transfusion Reactions: No Reported Reaction Past Psychological History: Anxiety Smoking Status: Never smoker Past Alcohol Use History: None Reported Past Drug Use History: None Reported - Past Family History Mother Additional Family Medical History / Comment(s): addisons disease Father Family Medical History: Hypertension General Exam Limitations: no limitations General appearance: alert, in no apparent distress, anxious Head exam: Present: atraumatic, normocephalic, normal inspection Eye exam: Present: normal appearance, PERRL, EOMI. Absent: scleral icterus, conjunctival injection, periorbital swelling ENT exam: Present: normal exam, mucous membranes moist Neck exam: Present: normal inspection. Absent: tenderness, meningismus, lymphadenopathy Respiratory exam: Present: normal lung sounds bilaterally. Absent: respiratory distress, wheezes, rales, rhonchi, stridor Cardiovascular Exam: Present: regular rate, normal rhythm, normal heart sounds. Absent: systolic murmur, diastolic murmur, rubs, gallop, clicks GI/Abdominal exam: Present: soft, normal bowel sounds. Absent: distended, tenderness, guarding, rebound, rigid Extremities exam: Present: normal inspection, full ROM, normal capillary refill. Absent: tenderness, pedal edema, joint swelling, calf tenderness Back exam: Present: normal inspection Neurological exam: Present: alert, oriented X3, CN II-XII intact Psychiatric exam: Present: normal affect, normal mood Skin exam: Present: warm, dry, intact, normal color. Absent: rash Course Vital Signs 11/08/16 11/08/16 11/08/16 05:06 05:35 05:53 Temperature 98.1 F Pulse Rate 82 80 80 Respiratory 22 18 16 Rate Blood Pressure 219/93 158/98 169/74 O2 Sat by Pulse 96 99 99 Oximetry 11/08/16 07:07 Temperature Pulse Rate 76 Respiratory 18 Rate Blood Pressure 161/70 O2 Sat by Pulse 98 Oximetry - Reevaluation(s) Reevaluation #1: 11/08/16 06:13 Patient's pain and nausea is improved at this time EKG Findings - EKG Comments: EKG Findings:: EKG shows normal sinus rhythm rate of 82, VA 164, QRS 74, QTC 436 Medical Decision Making - Medical Decision Making 66 female the year for evaluation of chest pain. Anterior chest pain and heaviness, no prior similar symptoms. Patient be admitted for cardiac observation. Patient has multiple medical comorbidities including her blood pressure and high cholesterol. - Lab Data Result diagrams: 11/08/16 05:05 11/08/16 05:05 Lab Results 11/08/16 11/08/16 11/08/16 Range/Units 05:05 05:05 05:05 WBC 6.9 (3.8-10.6) k/uL RBC 3.10 L (3.80-5.40) m/uL Hgb 9.6 L (11.4-16.0) gm/dL Hct 30.0 L (34.0-46.0) % MCV 96.9 (80.0-100.0) fL MCH 31.0 (25.0-35.0) pg MCHC 32.0 (31.0-37.0) g/dL RDW 14.8 (11.5-15.5) % Plt Count 168 (150-450) k/uL Neutrophils % 71 % Lymphocytes % 17 % Monocytes % 5 % Eosinophils % 5 % Basophils % 1 % Neutrophils # 4.9 (1.3-7.7) k/uL Lymphocytes # 1.2 (1.0-4.8) k/uL Monocytes # 0.4 (0-1.0) k/uL Eosinophils # 0.3 (0-0.7) k/uL Basophils # 0.0 (0-0.2) k/uL PT (9.0-12.0) sec INR (<1.1) APTT (22.0-30.0) sec Sodium 142 (137-145) mmol/L Potassium 4.4 (3.5-5.1) mmol/L Chloride 106 (98-107) mmol/L Carbon Dioxide 28 (22-30) mmol/L Anion Gap 8 mmol/L BUN 36 H (7-17) mg/dL Creatinine 1.30 H (0.52-1.04) mg/dL Est GFR (MDRD) Af Amer 50 (>60 ml/min/1.73 sqM) Est GFR (MDRD) Non-Af 41 (>60 ml/min/1.73 sqM) Glucose 90 (74-99) mg/dL Calcium 9.0 (8.4-10.2) mg/dL Magnesium 2.0 (1.6-2.3) mg/dL Total Bilirubin 0.3 (0.2-1.3) mg/dL AST 14 (14-36) U/L ALT 28 (9-52) U/L Alkaline Phosphatase 91 (38-126) U/L Total Creatine Kinase <20 L (30-135) U/L CK-MB (CK-2) 1.5 (0.0-2.4) ng/mL CK-MB (CK-2) Rel Index 0.0 Troponin I <0.012 (0.000-0.034) ng/mL NT-Pro-B Natriuret Pep pg/mL Total Protein 5.9 L (6.3-8.2) g/dL Albumin 3.4 L (3.5-5.0) g/dL Lipase 186 (23-300) U/L 11/08/16 11/08/16 Range/Units 05:05 05:05 WBC (3.8-10.6) k/uL RBC (3.80-5.40) m/uL Hgb (11.4-16.0) gm/dL Hct (34.0-46.0) % MCV (80.0-100.0) fL MCH (25.0-35.0) pg MCHC (31.0-37.0) g/dL RDW (11.5-15.5) % Plt Count (150-450) k/uL Neutrophils % % Lymphocytes % % Monocytes % % Eosinophils % % Basophils % % Neutrophils # (1.3-7.7) k/uL Lymphocytes # (1.0-4.8) k/uL Monocytes # (0-1.0) k/uL Eosinophils # (0-0.7) k/uL Basophils # (0-0.2) k/uL PT 10.0 (9.0-12.0) sec INR 1.0 (<1.1) APTT 21.7 L (22.0-30.0) sec Sodium (137-145) mmol/L Potassium (3.5-5.1) mmol/L Chloride (98-107) mmol/L Carbon Dioxide (22-30) mmol/L Anion Gap mmol/L BUN (7-17) mg/dL Creatinine (0.52-1.04) mg/dL Est GFR (MDRD) Af Amer (>60 ml/min/1.73 sqM) Est GFR (MDRD) Non-Af (>60 ml/min/1.73 sqM) Glucose (74-99) mg/dL Calcium (8.4-10.2) mg/dL Magnesium (1.6-2.3) mg/dL Total Bilirubin (0.2-1.3) mg/dL AST (14-36) U/L ALT (9-52) U/L Alkaline Phosphatase (38-126) U/L Total Creatine Kinase (30-135) U/L CK-MB (CK-2) (0.0-2.4) ng/mL CK-MB (CK-2) Rel Index Troponin I (0.000-0.034) ng/mL NT-Pro-B Natriuret Pep 5540 pg/mL Total Protein (6.3-8.2) g/dL Albumin (3.5-5.0) g/dL Lipase (23-300) U/L - Radiology Data Radiology results: report reviewed (Chest x-ray negative for acute disease), image reviewed Critical Care Time Critical Care Time: Yes Total Critical Care Time: 31 Disposition Clinical Impression: Acute renal failure, Chest pain Disposition: HOME SELF-CARE Condition: Good Instructions: Chest Pain (ED) Referrals: Fay Lerner MD [Primary Care Provider] - 1-2 days
[2016-11-08 06:19] LABS: Partial Thromboplastin Time 21.7 sec (22.0-30.0)
[2016-11-08 07:08] VITALS: BP 161/70; PULSE 76; RESP 18
[2016-11-08] MEDS ORDERED: ASPIRIN 81 MG CHEW PO STA (07:09)
== END 2016-11-08 07:41 | disposition home or self-care (01) ==
LOC: EC 04:56
DX: N17.9 Acute kidney failure, unspecified (principal); R11.0 Nausea; R06.02 Shortness of breath; R07.89 Other chest pain; E78.5 Hyperlipidemia, unspecified; E78.00 Pure hypercholesterolemia, unspecified; E07.9 Disorder of thyroid, unspecified; F41.9 Anxiety disorder, unspecified; Z79.899 Other long term (current) drug therapy; Z88.2 Allergy status to sulfonamides; Z91.048 Other nonmedicinal substance allergy status
CPT/HCPCS: 99285; 96374; 96375 ×2; 36415; 93005; 83880; 80053; 82550; 82553; 83690; 83735; 84484; 85025; 85610; 85730; 71020; J2060; J2405; J1170

== ENCOUNTER 2016-12-03 04:15 | Inpatient (IN) | payer MEDICARE ==
--- NOTE | 2016-12-03 04:33 | ED ---
Chest Pain HPI - General Chief Complaint: Chest Pain Stated Complaint: Chest Pain Time Seen by Provider: 12/03/16 04:17 Source: patient Mode of arrival: EMS Limitations: no limitations - Related Data Home Medications Medication Instructions Recorded Confirmed Omeprazole [PriLOSEC] 20 mg PO BID 02/20/14 10/21/16 predniSONE 10 mg PO DAILY 02/20/14 10/21/16 Cyanocobalamin [Vitamin B-12] 2,500 mcg PO DAILY 08/19/14 10/21/16 Ergocalciferol [Vitamin D2 50,000 unit PO WE 08/19/14 10/21/16 (DRISDOL)] Ferrous Sulfate [Iron (65 MG 325 mg PO HS 08/19/14 10/21/16 Elemental)] Calcitriol 0.25 mcg PO SUTUFR 01/07/15 10/21/16 Liothyronine Sodium [Cytomel] 5 mcg PO DAILY 01/07/15 10/21/16 ALPRAZolam [Xanax] 0.25 mg PO BID PRN 09/02/16 10/21/16 Carvedilol [Coreg] 25 mg PO BID 09/02/16 10/21/16 Gabapentin [Neurontin] 100 mg PO TID 09/02/16 10/21/16 Magnesium 200 mg PO HS 09/02/16 10/21/16 Morphine Sulfate ER [Ms Contin] 15 mg PO Q12HR 09/02/16 10/21/16 Simvastatin [Zocor] 40 mg PO HS 09/02/16 10/21/16 Lactobacillus Acidoph & Bulgar 1 packet PO BID 09/24/16 10/21/16 [Lactinex] Repaglinide [Prandin] 0.5 mg PO DAILY@1230 09/24/16 10/21/16 Repaglinide [Prandin] 1 mg PO DAILY@0730 09/24/16 10/21/16 HYDROcodone/APAP 10-325MG [[place] 1 tab PO Q3H PRN 09/25/16 10/21/16 10-325] Previous Rx's Medication Instructions Recorded Ondansetron Odt [Zofran ODT] 4 mg PO Q8HR PRN #15 tab 01/04/15 Levothyroxine Sodium [Synthroid] 25 mcg PO DAILY@0630 tab 01/12/15 Repaglinide [Prandin] 0.25 mg PO AC-SUPPER tab 09/05/16 Sodium Bicarbonate Tab 650 mg PO BID #60 tab 09/28/16 Aspirin 325 mg PO DAILY #30 tab 11/08/16 LORazepam [Ativan] 1 mg PO BID #30 tab 11/08/16 Allergies Allergy/AdvReac Type Severity Reaction Status Date / Time codeine Allergy Rash/Hives Verified 12/03/16 04:29 Sulfa (Sulfonamide Allergy Rash/Hives Verified 12/03/16 04:29 Antibiotics) gold Allergy Unknown Uncoded 12/03/16 04:29 Review of Systems ROS Statement: Those systems with pertinent positive or pertinent negative responses have been documented in the HPI. ROS Other: All systems not noted in ROS Statement are negative. EKG Findings - EKG Results: EKG: interpreted by MAVERICK, sinus rhythm (Rate 82 bpm), normal axis, normal QRS, normal ST/T, no acute changes - MA, Pacemaker, Normal: Normal tracing: normal tracing Past Medical History Past Medical History: Hyperlipidemia, Renal Disease, Thyroid Disorder Additional Past Medical History / Comment(s): low vitamin d levels which caused renal deficiency, parathyroid overactive related to low vit d levels, chronic prednisone secondary to RA followed by Dr. Marlow, ANEMIA,COMPRESSION FX L1, PAST FALL. of lithiasis, Csection, gall bladder History of Any Multi-Drug Resistant Organisms: None Reported Past Surgical History: Orthopedic Surgery Additional Past Surgical History / Comment(s): right knee TKA 2, carpel tunnel , CYST REMOVED (NECK) AGE 6 Past Anesthesia/Blood Transfusion Reactions: No Reported Reaction Past Psychological History: Anxiety Smoking Status: Never smoker Past Alcohol Use History: None Reported Past Drug Use History: None Reported - Past Family History Mother Additional Family Medical History / Comment(s): addisons disease Father Family Medical History: Hypertension General Exam Limitations: no limitations Course Vital Signs 12/03/16 04:20 Temperature 97.3 F L Pulse Rate 74 Respiratory 18 Rate Blood Pressure 207/100 O2 Sat by Pulse 99 Oximetry Disposition Referrals: Fay Lerner MD [Primary Care Provider] - 1-2 days
[2016-12-03] MEDS ORDERED: NITROGLYCERIN SL TABS 0.4 MG TAB SUBLINGUAL STA (04:45)
[2016-12-03] MEDS ORDERED: NITROGLYCERIN OINT 1 INCH/GM PACKET TOPICAL STA (04:45)
[2016-12-03] MEDS ORDERED: HYDROmorphone 1 MG/ML 1 ML SYRINGE IVP STA (04:46)
[2016-12-03 05:34] LABS: Calcium 8.8 mg/dL (8.4-10.2); Potassium 5.3 mmol/L (3.5-5.1); Total Bilirubin 0.3 mg/dL (0.2-1.3); Total Protein 5.5 g/dL (6.3-8.2)
[2016-12-03 05:38] LABS: Basophils % (A) 0 %; CH 31.8; CHCM 33.3; Eosinophils % (A) 0 %; HCT 21.1 % (34.0-46.0); HDW 2.84; Luc # (Auto) 0.04; Luc % (Auto) 1; Lymphocytes # (A) 0.3 k/uL (1.0-4.8); Lymphocytes % (A) 4 %; MCHC 32.3 g/dL (31.0-37.0); MCV 95.9 fL (80.0-100.0); Mean Platelet Volume 7.6; Monocytes # (A) 0.3 k/uL (0-1.0); Monocytes % (A) 4 %; Neutrophils # (A) 6.6 k/uL (1.3-7.7); Neutrophils % (A) 92 %; RDW 14.6 % (11.5-15.5); WBC 7.2 k/uL (3.8-10.6); WBC (Perox) 6.96
[2016-12-03 05:40] LABS: HGB 6.8 gm/dL (11.4-16.0)
--- NOTE | 2016-12-03 05:42 | XR ---
EXAM: XR Chest, 1 View CLINICAL HISTORY: Reason: chest pain TECHNIQUE: Frontal view of the chest. COMPARISON: 11/08/16. FINDINGS: Lungs: Prominent lung markings, similar to prior. Mild basilar opacities. Pleural space: Unremarkable. No pneumothorax. Heart: Stable cardiomediastinal silhouette. Mediastinum: See above. Bones/joints: Unremarkable. IMPRESSION: Mild basilar opacities, possible atelectasis. Otherwise, no significant change.
[2016-12-03] MEDS ORDERED: FUROSEMIDE 10 MG/ML 4 ML VIAL IV STA (07:30)
[2016-12-03] MEDS ORDERED: HYDROcodone/APAP 10-325MG 1 EACH TAB PO ONE (07:31)
[2016-12-03] MEDS ORDERED: NALOXONE 0.4 MG/ML 1 ML VIAL IV PRN (08:01)
[2016-12-03] MEDS ORDERED: ACETAMINOPHEN TAB 325 MG TAB PO PRN (08:01)
[2016-12-03] MEDS ORDERED: ALPRAZolam 0.25 MG TAB PO PRN (08:05)
[2016-12-03] MEDS ORDERED: ONDANSETRON ODT 4 MG TAB PO PRN (08:05)
[2016-12-03] MEDS: hydrALAZINE HCL 50 MG TAB PO SCH ×3 (10:29→22:09)
[2016-12-03] MEDS: GABAPENTIN 100 MG CAP PO SCH ×3 (10:29→22:08)
[2016-12-03] MEDS: CYANOCOBALAMIN 500 MCG TAB PO SCH (10:29)
[2016-12-03] MEDS: CARVEDILOL 12.5 MG TAB PO SCH ×2 (10:29→18:21)
[2016-12-03] MEDS: PANTOPRAZOLE 40 MG TABLET PO SCH ×2 (10:30→18:21)
[2016-12-03] MEDS: LIOTHYRONINE SODIUM 5 MCG TAB PO SCH (10:30)
[2016-12-03] MEDS: SODIUM BICARBONATE TAB 650 MG TAB PO SCH (10:30)
[2016-12-03] MEDS: predniSONE 10 MG TAB PO SCH (10:30)
[2016-12-03] MEDS: REPAGLINIDE 1 MG TAB PO SCH ×2 (10:31→12:07)
[2016-12-03] MEDS: FAMOTIDINE 20 MG TAB PO SCH ×2 (10:31→22:07)
[2016-12-03] MEDS: MORPHINE SULFATE ER 15 MG TABLET PO SCH ×2 (10:40→22:14)
[2016-12-03] MEDS: LEVOTHYROXINE 25 MCG TAB PO SCH (10:42)
[2016-12-03] MEDS: SODIUM CHLORIDE 0.9% 1,000 ML IV SCH (10:43)
[2016-12-03 11:39] LABS: Glucose,Whole Blood 265 mg/dL (75-99)
[2016-12-03 11:55] LABS: CH 31.2; CHCM 31.9; HDW 2.94; HGB 7.6 gm/dL (11.4-16.0); Hypochromasia Slight; MCH 31.3 pg (25.0-35.0); MCHC 31.8 g/dL (31.0-37.0); MCV 98.4 fL (80.0-100.0); Macrocytosis Slight; Mean Platelet Volume 7.6; RBC 2.44 m/uL (3.80-5.40); RDW 15.1 % (11.5-15.5); WBC 7.6 k/uL (3.8-10.6)
[2016-12-03] MEDS: CALCITRIOL 0.25 MCG CAP PO SCH (12:07)
--- NOTE | 2016-12-03 12:52 | P.GSCN ---
History of Present Illness Consult date: 12/03/16 Reason for Consult: Anemia History of present illness: This a 66-year-old female who is known to myself. Patient has multiple medical comorbidities. Patient was admitted to the hospital for profound anemia. Patient is a history of chronic anemia. She's had upper and lower endoscopy performed several years ago for anemia. The patient denies any bloody stools melena or dark tarry stools. Review of Systems - Constitutional Reports as per HPI Past Medical History Past Medical History: Hyperlipidemia, Renal Disease, Thyroid Disorder Additional Past Medical History / Comment(s): low vitamin d levels which caused renal deficiency, parathyroid overactive related to low vit d levels, chronic prednisone secondary to RA followed by Dr. Marlow, ANEMIA,COMPRESSION FX L1, PAST FALL. of lithiasis, Csection, gall bladder History of Any Multi-Drug Resistant Organisms: None Reported Past Surgical History: Orthopedic Surgery Additional Past Surgical History / Comment(s): right knee TKA 2, carpel tunnel , CYST REMOVED (NECK) AGE 6, 2 back surgery 2004 Past Anesthesia/Blood Transfusion Reactions: No Reported Reaction Past Psychological History: Anxiety Smoking Status: Never smoker Past Alcohol Use History: None Reported Past Drug Use History: None Reported - Past Family History Mother Additional Family Medical History / Comment(s): addisons disease Father Family Medical History: Hypertension Medications and Allergies Home Medications Medication Instructions Recorded Confirmed Type Omeprazole [PriLOSEC] 20 mg PO BID 02/20/14 12/03/16 History predniSONE 10 mg PO DAILY 02/20/14 12/03/16 History Cyanocobalamin [Vitamin B-12] 2,500 mcg PO DAILY 08/19/14 12/03/16 History Ergocalciferol [Vitamin D2 50,000 unit PO WE 08/19/14 12/03/16 History (DRISDOL)] Ferrous Sulfate [Iron (65 MG 325 mg PO HS 08/19/14 12/03/16 History Elemental)] Calcitriol 0.25 mcg PO SUTUFR 01/07/15 12/03/16 History Liothyronine Sodium [Cytomel] 5 mcg PO DAILY 01/07/15 12/03/16 History ALPRAZolam [Xanax] 0.25 mg PO BID PRN 09/02/16 12/03/16 History Carvedilol [Coreg] 25 mg PO BID 09/02/16 12/03/16 History Gabapentin [Neurontin] 100 mg PO TID 09/02/16 12/03/16 History Magnesium 200 mg PO HS 09/02/16 12/03/16 History Morphine Sulfate ER [Ms Contin] 15 mg PO BID 09/02/16 12/03/16 History Simvastatin [Zocor] 40 mg PO HS 09/02/16 12/03/16 History Repaglinide [Prandin] 1 mg PO DAILY 09/24/16 12/03/16 History Repaglinide [Prandin] 2 mg PO DAILY@1200 09/24/16 12/03/16 History HYDROcodone/APAP 10-325MG [[place] 1 tab PO Q4HR PRN 09/25/16 12/03/16 History 10-325] Furosemide [Lasix] 40 mg PO MOWEFR 12/03/16 12/03/16 History Sodium Bicarbonate Tab 650 mg PO DAILY 12/03/16 12/03/16 History hydrALAZINE HCL [Apresoline] 25 mg PO HS 12/03/16 12/03/16 History hydrALAZINE HCL [Apresoline] 50 mg PO TID 12/03/16 12/03/16 History Allergies Allergy/AdvReac Type Severity Reaction Status Date / Time codeine Allergy Rash/Hives Verified 12/03/16 07:41 Sulfa (Sulfonamide Allergy Rash/Hives Verified 12/03/16 07:41 Antibiotics) gold Allergy Unknown Uncoded 12/03/16 04:29 Surgical - Exam Vital Signs Temp Pulse Resp BP Pulse Ox 97.3 F L 74 18 207/100 99 12/03/16 04:20 12/03/16 04:20 12/03/16 04:20 12/03/16 04:20 12/03/16 04:20 - General well developed, no distress - Eyes PERRL - ENT normal pinna - Neck no masses - Respiratory normal expansion - Cardiovascular Rhythm: regular - Abdomen Abdomen: soft, non tender Results - Labs 12/03/16 11:26 12/03/16 05:10 Abnormal Lab Results - Last 24 Hours (Table) 12/03/16 12/03/16 12/03/16 Range/Units 05:10 05:10 05:10 RBC 2.20 L (3.80-5.40) m/uL Hgb 6.8 L* D (11.4-16.0) gm/dL Hct 21.1 L (34.0-46.0) % Plt Count 145 L (150-450) k/uL Lymphocytes # 0.3 L (1.0-4.8) k/uL D-Dimer 1.16 H (<0.60) mg/L FEU Potassium 5.3 H (3.5-5.1) mmol/L BUN 53 H (7-17) mg/dL Creatinine 1.40 H (0.52-1.04) mg/dL Glucose 258 H (74-99) mg/dL POC Glucose (mg/dL) (75-99) mg/dL Troponin I (0.000-0.034) ng/mL Total Protein 5.5 L (6.3-8.2) g/dL Albumin 3.1 L (3.5-5.0) g/dL Crossmatch 12/03/16 12/03/16 12/03/16 Range/Units 05:10 05:10 11:26 RBC 2.44 L (3.80-5.40) m/uL Hgb 7.6 L (11.4-16.0) gm/dL Hct 24.0 L (34.0-46.0) % Plt Count 137 L (150-450) k/uL Lymphocytes # (1.0-4.8) k/uL D-Dimer (<0.60) mg/L FEU Potassium (3.5-5.1) mmol/L BUN (7-17) mg/dL Creatinine (0.52-1.04) mg/dL Glucose (74-99) mg/dL POC Glucose (mg/dL) (75-99) mg/dL Troponin I 0.061 H* (0.000-0.034) ng/mL Total Protein (6.3-8.2) g/dL Albumin (3.5-5.0) g/dL Crossmatch See Detail 12/03/16 Range/Units 11:34 RBC (3.80-5.40) m/uL Hgb (11.4-16.0) gm/dL Hct (34.0-46.0) % Plt Count (150-450) k/uL Lymphocytes # (1.0-4.8) k/uL D-Dimer (<0.60) mg/L FEU Potassium (3.5-5.1) mmol/L BUN (7-17) mg/dL Creatinine (0.52-1.04) mg/dL Glucose (74-99) mg/dL POC Glucose (mg/dL) 265 H (75-99) mg/dL Troponin I (0.000-0.034) ng/mL Total Protein (6.3-8.2) g/dL Albumin (3.5-5.0) g/dL Crossmatch Diabetes panel 12/03/16 Range/Units 05:10 Sodium 141 (137-145) mmol/L Potassium 5.3 H (3.5-5.1) mmol/L Chloride 105 (98-107) mmol/L Carbon Dioxide 28 (22-30) mmol/L BUN 53 H (7-17) mg/dL Creatinine 1.40 H (0.52-1.04) mg/dL Glucose 258 H (74-99) mg/dL Calcium 8.8 (8.4-10.2) mg/dL AST 15 (14-36) U/L ALT 33 (9-52) U/L Alkaline Phosphatase 88 (38-126) U/L Total Protein 5.5 L (6.3-8.2) g/dL Albumin 3.1 L (3.5-5.0) g/dL Calcium panel 12/03/16 Range/Units 05:10 Calcium 8.8 (8.4-10.2) mg/dL Albumin 3.1 L (3.5-5.0) g/dL Pituitary panel 12/03/16 Range/Units 05:10 Sodium 141 (137-145) mmol/L Potassium 5.3 H (3.5-5.1) mmol/L Chloride 105 (98-107) mmol/L Carbon Dioxide 28 (22-30) mmol/L BUN 53 H (7-17) mg/dL Creatinine 1.40 H (0.52-1.04) mg/dL Glucose 258 H (74-99) mg/dL Calcium 8.8 (8.4-10.2) mg/dL Adrenal panel 12/03/16 Range/Units 05:10 Sodium 141 (137-145) mmol/L Potassium 5.3 H (3.5-5.1) mmol/L Chloride 105 (98-107) mmol/L Carbon Dioxide 28 (22-30) mmol/L BUN 53 H (7-17) mg/dL Creatinine 1.40 H (0.52-1.04) mg/dL Glucose 258 H (74-99) mg/dL Calcium 8.8 (8.4-10.2) mg/dL Total Bilirubin 0.3 (0.2-1.3) mg/dL AST 15 (14-36) U/L ALT 33 (9-52) U/L Alkaline Phosphatase 88 (38-126) U/L Total Protein 5.5 L (6.3-8.2) g/dL Albumin 3.1 L (3.5-5.0) g/dL Assessment and Plan Plan: Chronic anemia. Patient is receiving blood transfusion. Once patient is stable we may consider repeat endoscopy if needed.
--- NOTE | 2016-12-03 13:32 | P.HPIM ---
History of Present Illness H&P Date: 12/03/16 Chief Complaint: Chest pain and angina, elevated troponin, severe anemia, GI bleed, rheumato 66-year-old female one of Dr. Lerner's patient with past medical history of rheumatoid arthritis hyperlipidemia chronic anemia and chronic kidney disease patient was known to have history of kidney stone and recurrent lower back pain secondary to compression. Patient was in the hospital last in 09/25/2016 for nausea vomiting and diarrhea was treated and did well. Repeat lab after her discharge came with hemoglobin of 8.8 and then up to 10 g. Patient apparently was doing well until 2:30 AM when she woke up having significant shortness of breath and walk to the bathroom found her sugar to be good at the time she ended up having to take Xanax because of mild anxiety as well but developed to have significant dizziness and chest discomfort midsternum radiating toward the left upper side of her chest. Then she woke up her family was giving some nitro and EMS was called patient brought to the emergency department at [facility] where was seen and evaluated surprisingly her troponin came back slightly elevated EKG didn't show any change but patient had significant anemia with hemoglobin running in the 6 g significant drop from last month. With above problem Patient was started on blood transfusion admitted to the hospital will be seen cardiology and general surgery for possible need for endoscopy. Hemoccult will be done as well patient remember having slight increase abdominal pain but no tarry stool or bright red blood per rectum lately. Review of Systems Constitutional: Reports anorexia, Reports fatigue, Reports lethargy, Reports malaise, Reports weight gain, Denies as per HPI, Denies chills, Denies chronic headaches, Denies chronic pain, Denies daytime sleepiness, Denies fever, Denies night sweats, Denies poor appetite, Denies sweats, Denies weakness, Denies weight loss Eyes: bilateral as per HPI Ears: bilateral: decreased hearing Ears, nose, mouth and throat: Reports ant. neck pain, Reports nasal congestion, Reports sinus pressure, Denies as per HPI, Denies bleeding gums, Denies dental pain, Denies dysphagia, Denies epistaxis, Denies headache, Denies hoarseness, Denies mouth pain, Denies nasal discharge, Denies neck fullness/pressure, Denies neck lump, Denies nose pain, Denies odynophagia, Denies post-nasal drip, Denies sinus pain, Denies swelling in mouth, Denies swelling in throat, Denies sore throat, Denies vertigo, Denies voice changes Breasts: bilateral: as per HPI Cardiovascular: Reports chest pain, Reports decreased exercise tolerance, Reports dyspnea on exertion, Reports edema, Reports high blood pressure, Reports irregular heart beat, Reports leg edema, Reports orthopnea, Reports paroxysmal nocturnal dyspnea, Reports shortness of breath, Denies as per HPI, Denies claudication, Denies lightheadedness, Denies palpitations, Denies phlebitis, Denies rapid heart beat, Denies syncope Respiratory: Reports congestion, Reports cough, Reports dyspnea, Reports pain on inspiration, Denies as per HPI, Denies cough with sputum, Denies excessive sputum, Denies hemoptysis, Denies home oxygen, Denies pain, Denies pleurisy, Denies respiratory infections, Denies sleep apnea, Denies snoring, Denies wheezing Gastrointestinal: Reports abdominal pain, Reports bloating, Reports constipation , Reports dyspepsia, Reports indigestion, Reports nausea, Denies as per HPI, Denies belching, Denies BRBPR, Denies change in bowel habits, Denies coffee ground emesis, Denies diarrhea, Denies early satiety, Denies excessive gas, Denies heartburn, Denies hematemesis, Denies hematochezia, Denies jaundice, Denies lactose intolerance, Denies loss of appetite, Denies melena, Denies vomiting Genitourinary: Reports stress incontinence, Denies as per HPI, Denies abnormal vaginal bleeding, Denies decreased libido, Denies difficulty conceiving, Denies difficulty voiding, Denies dysmenorrhea, Denies dyspareunia, Denies dysuria, Denies flank pain, Denies genital sores, Denies hematuria, Denies hot flashes, Denies incomplete emptying, Denies kidney stones, Denies menorrhagia, Denies mixed incontinence, Denies nocturia, Denies pelvic pain, Denies post void dribbling, Denies , Denies prolapse symptoms, Denies urge incontinence, Denies urgency, Denies urinary frequency, Denies vaginal discharge, Denies vaginal dryness, Denies vaginal itching, Denies vaginal odor Musculoskeletal: Reports arm numbness/tingling, Reports fractures, Reports frequent falls, Reports gait dysfunction, Reports leg numbness/tingling, Reports limitation of motion, Reports low back pain, Reports morning stiffness, Reports muscle cramps, Reports muscle weakness, Reports myalgias, Reports neck pain, Reports neck stiffness, Denies as per HPI, Denies atrophy, Denies hot joints, Denies loss of height, Denies prior amputations, Denies redness of joints, Denies shooting arm pain, Denies shooting leg pain Integumentary: Reports pruritus, Reports rash, Denies as per HPI, Denies acne, Denies boils, Denies brittle nails, Denies change in hair/nails, Denies color changes, Denies darkening of skin, Denies depigmentation, Denies dryness, Denies foot/leg ulcers, Denies growths, Denies hirsutism, Denies lesions, Denies onychomycosis, Denies sores, Denies striae, Denies unusual bruising, Denies wounds Neurological: Reports ataxia, Reports burning pain, Reports confusion, Reports double vision, Reports gait dysfunction, Reports headaches, Reports migraines, Reports paresthesias, Reports tingling, Reports transient paralysis, Reports tremors, Reports weakness, Denies as per HPI, Denies aphasia, Denies balance difficulties, Denies change in mentation, Denies change in smell/taste, Denies change in speech, Denies convulsions, Denies head injury, Denies hearing difficulties, Denies lack of coordination, Denies loss of vision, Denies memory loss, Denies motor disturbance, Denies numbness, Denies paralysis, Denies seizures, Denies sensory deficit, Denies spasticity, Denies syncope, Denies tic , Denies vertigo, Denies visual changes Psychiatric: Reports anxiety, Reports anxiety attacks, Reports depression, Reports insomnia, Reports irritability, Reports mood swings, Denies as per HPI, Denies anhedonia, Denies change in appetite, Denies change in libido, Denies change in sleep habits, Denies confusion, Denies difficulty concentrating, Denies disorientation, Denies hallucinations, Denies hopelessness, Denies hypersomnia, Denies memory loss, Denies paranoia, Denies sadness/tearfulness, Denies sleep disturbances, Denies suicidal ideation Endocrine: Reports fatigue, Reports polyphagia, Denies as per HPI, Denies cold intolerance, Denies deepening of the voice, Denies excessive sweating, Denies excessive thirst, Denies flushing, Denies heat intolerance, Denies high blood sugars, Denies increase in ring/shoe/hat size, Denies low blood sugars, Denies nocturia, Denies palpitations, Denies polydipsia, Denies polyuria, Denies proptosis, Denies recent glucocorticoid use, Denies thyroid mass, Denies weight change Hematologic/Lymphatic: Reports easy bruising, Denies as per HPI, Denies easy bleeding, Denies lymphadenopathy, Denies lymphedema, Denies thrombophilia Allergic/Immunologic: Denies as per HPI, Denies allergic rhinitis, Denies anaphylaxis, Denies angioedema, Denies gluten intolerance, Denies persistent infections, Denies seasonal allergies, Denies urticaria, Denies wheezing Past Medical History Past Medical History: Hyperlipidemia, Renal Disease, Thyroid Disorder Additional Past Medical History / Comment(s): low vitamin d levels which caused renal deficiency, parathyroid overactive related to low vit d levels, chronic prednisone secondary to RA followed by Dr. Marlow, ANEMIA,COMPRESSION FX L1, PAST FALL. of lithiasis, Csection, gall bladder History of Any Multi-Drug Resistant Organisms: None Reported Past Surgical History: Orthopedic Surgery Additional Past Surgical History / Comment(s): right knee TKA 2, carpel tunnel , CYST REMOVED (NECK) AGE 6, 2 back surgery 2004 Past Anesthesia/Blood Transfusion Reactions: No Reported Reaction Past Psychological History: Anxiety Smoking Status: Never smoker Past Alcohol Use History: None Reported Past Drug Use History: None Reported - Past Family History Mother Additional Family Medical History / Comment(s): addisons disease Father Family Medical History: Hypertension Medications and Allergies Home Medications Medication Instructions Recorded Confirmed Type Omeprazole [PriLOSEC] 20 mg PO BID 02/20/14 12/03/16 History predniSONE 10 mg PO DAILY 02/20/14 12/03/16 History Cyanocobalamin [Vitamin B-12] 2,500 mcg PO DAILY 08/19/14 12/03/16 History Ergocalciferol [Vitamin D2 50,000 unit PO WE 08/19/14 12/03/16 History (DRISDOL)] Ferrous Sulfate [Iron (65 MG 325 mg PO HS 08/19/14 12/03/16 History Elemental)] Calcitriol 0.25 mcg PO SUTUFR 01/07/15 12/03/16 History Liothyronine Sodium [Cytomel] 5 mcg PO DAILY 01/07/15 12/03/16 History ALPRAZolam [Xanax] 0.25 mg PO BID PRN 09/02/16 12/03/16 History Carvedilol [Coreg] 25 mg PO BID 09/02/16 12/03/16 History Gabapentin [Neurontin] 100 mg PO TID 09/02/16 12/03/16 History Magnesium 200 mg PO HS 09/02/16 12/03/16 History Morphine Sulfate ER [Ms Contin] 15 mg PO BID 09/02/16 12/03/16 History Simvastatin [Zocor] 40 mg PO HS 09/02/16 12/03/16 History Repaglinide [Prandin] 1 mg PO DAILY 09/24/16 12/03/16 History Repaglinide [Prandin] 2 mg PO DAILY@1200 09/24/16 12/03/16 History HYDROcodone/APAP 10-325MG [Jerome 1 tab PO Q4HR PRN 09/25/16 12/03/16 History 10-325] Furosemide [Lasix] 40 mg PO MOWEFR 12/03/16 12/03/16 History Sodium Bicarbonate Tab 650 mg PO DAILY 12/03/16 12/03/16 History hydrALAZINE HCL [Apresoline] 25 mg PO HS 12/03/16 12/03/16 History hydrALAZINE HCL [Apresoline] 50 mg PO TID 12/03/16 12/03/16 History Allergies Allergy/AdvReac Type Severity Reaction Status Date / Time codeine Allergy Rash/Hives Verified 12/03/16 07:41 Sulfa (Sulfonamide Allergy Rash/Hives Verified 12/03/16 07:41 Antibiotics) gold Allergy Unknown Uncoded 12/03/16 04:29 Physical Exam Vitals: Vital Signs Temp Pulse Pulse Resp BP BP Pulse Ox 12/03/16 12:00 77 16 12/03/16 11:18 74 16 176/85 100 12/03/16 11:17 74 16 176/85 100 12/03/16 09:44 77 16 12/03/16 09:20 97.0 F L 77 16 183/86 05/28/17 08:55 98.0 F 80 14 158/76 96 12/03/16 08:50 98.0 F 80 14 158/76 12/03/16 08:40 97.8 F 76 16 160/75 12/03/16 07:41 97.6 F 79 16 182/84 99 12/03/16 06:51 97.8 F 84 18 185/87 100 12/03/16 05:55 95 18 180/86 98 12/03/16 04:58 78 18 197/88 99 12/03/16 04:53 77 18 209/122 100 12/03/16 04:20 97.3 F L 74 18 207/100 99 Intake and Output 12/02/16 12/03/16 12/03/16 22:59 06:59 14:59 Intake Total 620 Output Total 500 Balance 120 Intake: Blood Product 620 Rc As-1 Unit 310 [id number] Output: Urine 500 Other: # Voids 1 Weight 74.389 kg - Constitutional General appearance: no average body habitus, cooperative, no disheveled, no mild distress, no morbidly obese, no acute distress, no obese, no severe distress, no thin - EENT Eyes: no abnormal pupil, no anicteric sclerae, no disc margins sharp, no edentulous, no EOMI, no PERRLA, no fundus normal, no photophobia, no dentition normal, no poor dentition, no ptosis, no scleral icterus, normal appearance ENT: no hard of hearing, no hearing grossly normal, no NA/AT, normal oropharynx , no other, no pharyngeal erythema, no thrush, no tonsillar exudates, no tonsillar swelling Ears: bilateral: normal - Neck Neck: no lymphadenopathy, normal ROM, no other, no rigidity, no stridor, no thyromegaly Carotids: bilateral: upstroke normal Thyroid: bilateral: normal size - Respiratory Respiratory: bilateral: CTA, diminished - Cardiovascular Rhythm: regular Heart sounds: normal: S1, S2 Abnormal Heart Sounds: systolic murmur, S3 Gallop - Gastrointestinal General gastrointestinal: no absent bowel sounds, decreased bowel sounds, no distended, no hepatomegaly, no hyperactive bowel sounds, normal bowel sounds, no organomegaly, no rigid, no scaphoid, soft, no splenomegaly, no tenderness, no umbilical hernia, no ventral hernia - Integumentary Integumentary: no calor, no cellulitis, no cyanotic, no decreased turgor, no flushed, no jaundiced, normal, no normal turgor, pale, rash, no ulcer - Neurologic Neurologic: CNII-XII intact - Musculoskeletal Musculoskeletal: no gait normal, generalized weakness, no strength equal bilaterally, no right sided weakness, no left sided weakness - Psychiatric Psychiatric: A&O x's 3, appropriate affect, no intact judgment & insight Results CBC & Chem 7: 12/03/16 11:26 12/03/16 05:10 Labs: Abnormal Lab Results - Last 24 Hours (Table) 12/03/16 12/03/16 12/03/16 Range/Units 05:10 05:10 05:10 RBC 2.20 L (3.80-5.40) m/uL Hgb 6.8 L* D (11.4-16.0) gm/dL Hct 21.1 L (34.0-46.0) % Plt Count 145 L (150-450) k/uL Lymphocytes # 0.3 L (1.0-4.8) k/uL D-Dimer 1.16 H (<0.60) mg/L FEU Potassium 5.3 H (3.5-5.1) mmol/L BUN 53 H (7-17) mg/dL Creatinine 1.40 H (0.52-1.04) mg/dL Glucose 258 H (74-99) mg/dL POC Glucose (mg/dL) (75-99) mg/dL Troponin I (0.000-0.034) ng/mL Total Protein 5.5 L (6.3-8.2) g/dL Albumin 3.1 L (3.5-5.0) g/dL Crossmatch 12/03/16 12/03/16 12/03/16 Range/Units 05:10 05:10 11:26 RBC (3.80-5.40) m/uL Hgb (11.4-16.0) gm/dL Hct (34.0-46.0) % Plt Count (150-450) k/uL Lymphocytes # (1.0-4.8) k/uL D-Dimer (<0.60) mg/L FEU Potassium (3.5-5.1) mmol/L BUN (7-17) mg/dL Creatinine (0.52-1.04) mg/dL Glucose (74-99) mg/dL POC Glucose (mg/dL) (75-99) mg/dL Troponin I 0.061 H* 1.580 H* (0.000-0.034) ng/mL Total Protein (6.3-8.2) g/dL Albumin (3.5-5.0) g/dL Crossmatch See Detail 12/03/16 12/03/16 Range/Units 11:26 11:34 RBC 2.44 L (3.80-5.40) m/uL Hgb 7.6 L (11.4-16.0) gm/dL Hct 24.0 L (34.0-46.0) % Plt Count 137 L (150-450) k/uL Lymphocytes # (1.0-4.8) k/uL D-Dimer (<0.60) mg/L FEU Potassium (3.5-5.1) mmol/L BUN (7-17) mg/dL Creatinine (0.52-1.04) mg/dL Glucose (74-99) mg/dL POC Glucose (mg/dL) 265 H (75-99) mg/dL Troponin I (0.000-0.034) ng/mL Total Protein (6.3-8.2) g/dL Albumin (3.5-5.0) g/dL Crossmatch Thrombosis Risk Factor Assmnt - DVT/VTE Prophylaxis DVT/VTE Prophylaxis: Mechanical Prophylaxis ordered - Choose All That Apply Each Risk Factor Represents 2 Points: Age 61-74 years Thrombosis Risk Factor Assessment Total Risk Factor Score: 2 Thrombosis Risk Factor Assessment Level: Low Risk Assessment and Plan Plan: 1 acute chest pain with elevated troponin: This is causing her as non-ST [place] with the current problem patient be seeing cardiology repeat troponin 3 EKG echocardiogram will be done patient might require to have some sort of intervention either stress test or heart cath when she is more stable. Of course patient could have increase anginal symptom with the severity of her anemia at this point. 2 severe iron deficiency anemia: With chronic anemia patient will need blood transfusion and iron infusion Hemoccult will be done continue PPI for GI prophylaxis will watch patient carefully for any further bleed and further endoscopy to be determined based on the finding and. 3 severe dyspnea and shortness of breath secondary to acute non-ST KS and severe anemia the same time try to treat underlying disease. 4 stage III chronic kidney disease: Has been seen nephrology. 5 rheumatoid arthritis: Has been seen Dr. Marlow. Still from her list of medication looks on prednisone only with no biological agent at this point. 6 chronic pain syndrome: Patient has been on MS Contin 15 mg twice a day along with Jerome 10/325 g every 4 hours as needed. 7 hypothyroidism: Remain on Cytomel and Synthroid together. 8 diabetes: Patient has been on Prandin 1 mg in the morning and 2 mg at noontime. 9 history of CAD: Has been seen cardiology regular basis. 10 hypertension: Patient has been on hydralazine 50 mg 3 times a day along with Coreg 25 g twice a day. 11 fluid overload: Has been on furosemide 40 mg 5 days a week. 12 hyperlipidemia: Remain on Zocor 40 mg daily. 13 chronic neuropathy: Mostly idiopathic peripheral neuropathy and diabetic neuropathy as well to continue Neurontin 100 mg 3 times a day. 14 GI prophylaxis: Patient will be on pantoprazole IV. Has been on Prilosec 20 mg twice a day as an outpatient. 15 DVT prophylaxis: Not on any anticoagulation but will keep patient on knee- high CHAUNCEY hose and Venodyne boots. CODE STATUS: Full code. Expectation from this admission: Patient be in the hospital for more than 2 nights.
[2016-12-03 16:34] LABS: Glucose,Whole Blood 186 mg/dL (75-99)
[2016-12-03] MEDS: HYDROcodone/APAP 10-325MG 1 EACH TAB PO PRN (18:24)
[2016-12-03] MEDS ORDERED: ATORVASTATIN 20 MG TAB PO SCH (21:00)
[2016-12-03 21:43] LABS: Glucose,Whole Blood 123 mg/dL (75-99)
[2016-12-03] MEDS: MAGNESIUM OXIDE 400 MG TAB PO SCH (22:08)
[2016-12-03] MEDS: FERROUS SULFATE 325 MG TAB PO SCH (22:08)
[2016-12-03] MEDS: hydrALAZINE HCL 25 MG TAB PO SCH (22:10)
[2016-12-04 05:49] LABS: Glucose,Whole Blood 99 mg/dL (75-99)
[2016-12-04] MEDS: LEVOTHYROXINE 25 MCG TAB PO SCH (06:17)
[2016-12-04] MEDS: PANTOPRAZOLE 40 MG TABLET PO SCH ×2 (06:17→17:35)
[2016-12-04 06:19] LABS: Basophils % (A) 0 %; CH 31.1; Eosinophils % (A) 0 %; HCT 23.5 % (34.0-46.0); HDW 2.93; HGB 7.4 gm/dL (11.4-16.0); Hypochromasia Slight; Luc # (Auto) 0.05; Luc % (Auto) 1; Lymphocytes # (A) 0.5 k/uL (1.0-4.8); Lymphocytes % (A) 9 %; MCH 30.6 pg (25.0-35.0); MCHC 31.3 g/dL (31.0-37.0); MCV 97.8 fL (80.0-100.0); Mean Platelet Volume 8.5; Monocytes # (A) 0.3 k/uL (0-1.0); Monocytes % (A) 5 %; Neutrophils # (A) 4.7 k/uL (1.3-7.7); Neutrophils % (A) 85 %; WBC 5.5 k/uL (3.8-10.6); WBC (Perox) 5.66
[2016-12-04 06:27] LABS: Calcium 8.5 mg/dL (8.4-10.2); Potassium 4.9 mmol/L (3.5-5.1); Total Bilirubin 0.3 mg/dL (0.2-1.3); Total Protein 4.7 g/dL (6.3-8.2)
[2016-12-04] MEDS: CARVEDILOL 12.5 MG TAB PO SCH ×2 (07:00→17:35)
[2016-12-04] MEDS: REPAGLINIDE 1 MG TAB PO SCH ×2 (07:00→11:40)
[2016-12-04] MEDS: HYDROcodone/APAP 10-325MG 1 EACH TAB PO PRN (07:50)
[2016-12-04] MEDS: SODIUM CHLORIDE 0.9% 1,000 ML IV SCH (07:51)
[2016-12-04] MEDS: FAMOTIDINE 20 MG TAB PO SCH (07:53)
[2016-12-04] MEDS: CYANOCOBALAMIN 500 MCG TAB PO SCH (07:53)
[2016-12-04] MEDS: predniSONE 10 MG TAB PO SCH (07:54)
[2016-12-04] MEDS: SODIUM BICARBONATE TAB 650 MG TAB PO SCH (07:54)
[2016-12-04] MEDS: hydrALAZINE HCL 50 MG TAB PO SCH ×3 (07:54→21:08)
[2016-12-04] MEDS: GABAPENTIN 100 MG CAP PO SCH ×3 (07:54→21:08)
[2016-12-04] MEDS: FUROSEMIDE 40 MG TAB PO SCH (07:54)
[2016-12-04] MEDS: LIOTHYRONINE SODIUM 5 MCG TAB PO SCH (07:55)
[2016-12-04] MEDS: MORPHINE SULFATE ER 15 MG TABLET PO SCH ×2 (10:02→21:08)
--- NOTE | 2016-12-04 10:07 | CONS ---
DATE OF CONSULTATION: Ms. Neves is a 66-year-old female who moves started complaining of severe chest discomfort radiating and dizziness with pain radiating to the left arm. His first 12-lead ECG did not show any definite ST segment changes, but her second ECG showed ST-T abnormalities in the lateral precordial leads. No fever, chills. Currently she has no pain. REVIEW OF SYSTEMS: No fever, chills, or rigors. No cough or expectoration. No nausea, vomiting, diarrhea, hematuria, dysuria. No strokes or seizures. She denies any bleeding, but she has black stools when she takes iron. Her hemoglobin is reduced and apparently it is a significant drop from last month and she was given and a unit of blood and seen by Surgery. Past history of dyslipidemia, renal disorder, thyroid disorder. She is on chronic prednisone therapy due to rheumatoid arthritis. Her medication list was reviewed and is documented in the chart. ALLERGIES: Codeine, sulfa. On examination, her blood pressure was elevated upon admission 176/85 mmHg. Pulse rate is in the 90s. HEAD AND NECK EXAMINATION: She has alopecia. No JVD. Heart sounds S1, S2 are soft. No murmurs or gallops. LUNGS: Breath sounds are reduced bilaterally. ABDOMEN: Soft, nontender. EXTREMITIES: Warm. No edema. Labs are reviewed. She has had abnormal troponins with clear rising trend with a peak starting at 0.06 and so far the highest has been 5.8. IMPRESSION: 1. Acute myocardial injury likely in the setting of severe anemia, which may be acute. 2. Hypertension. 3. Dyslipidemia. SUGGEST: Continue atorvastatin. Continue carvedilol. Watch blood pressure and maximize antihypertensive therapy and gastrointestinal work-up and workup for acute anemia to see if acute anemia at this time. The only medical treatment for coronary arteries will be recommended, but it is to be noted that her symptoms were very consistent with angina but in the setting of acute anemia.
--- NOTE | 2016-12-04 10:42 | P.PN ---
Progress Note - Text The patient is resting comfortably in her bed. She denies any abdominal pain. There has been no evidence of acute GI bleed. On exam her lesser stable. Her abdomen soft. The patient is undergoing cardiology workup. If needed we will perform EGD when stable.
[2016-12-04] MEDS ORDERED: ACETAMINOPHEN TAB 325 MG TAB PO ONE (10:46)
[2016-12-04] MEDS ORDERED: FUROSEMIDE 10 MG/ML 2 ML VIAL IV ONE (11:15)
[2016-12-04 11:56] LABS: Glucose,Whole Blood 93 mg/dL (75-99)
--- NOTE | 2016-12-04 12:51 | P.PN ---
Subjective Principal diagnosis: Chest pain and angina, elevated troponin, severe anemia, GI bleed, rheumatoid arthritis, CAD, hypertension, hyperlipidemia, CK D. 66-year-old female one of Dr. Lerner's patient with past medical history of rheumatoid arthritis hyperlipidemia chronic anemia and chronic kidney disease patient was known to have history of kidney stone and recurrent lower back pain secondary to compression. Patient was in the hospital last in 09/25/2016 for nausea vomiting and diarrhea was treated and did well. Repeat lab after her discharge came with hemoglobin of 8.8 and then up to 10 g. Patient apparently was doing well until 2:30 AM when she woke up having significant shortness of breath and walk to the bathroom found her sugar to be good at the time she ended up having to take Xanax because of mild anxiety as well but developed to have significant dizziness and chest discomfort midsternum radiating toward the left upper side of her chest. Then she woke up her family was giving some nitro and EMS was called patient brought to the emergency department at [facility] where was seen and evaluated surprisingly her troponin came back slightly elevated EKG didn't show any change but patient had significant anemia with hemoglobin running in the 6 g significant drop from last month. With above problem Patient was started on blood transfusion admitted to the hospital will be seen cardiology and general surgery for possible need for endoscopy. Hemoccult will be done as well patient remember having slight increase abdominal pain but no tarry stool or bright red blood per rectum lately. Surprisingly troponin came back slightly bit higher at this point in the cystic is up to be non-ST NV. Seen Dr. Camacho general surgery and Dr. Ramírez cardiology at this point even patient will require some sort of intervention for endoscopy but with the new onset of NV and elevated troponin this is need to be delayed for a few weeks in the meanwhile treat medically. Hemoglobin still tiny bit low we will add 1 unit of RBC today. Objective - Vital Signs Vital signs: Vital Signs Temp 98.3 F 12/04/16 08:00 Pulse 80 12/04/16 08:00 Resp 18 12/04/16 08:00 BP 187/85 12/04/16 08:00 Pulse Ox 98 12/04/16 08:00 Intake & Output 12/03/16 12/04/16 12/04/16 18:59 06:59 18:59 Intake Total 620 240 Output Total 500 725 Balance 120 -725 240 Weight 74.389 kg 75 kg Intake: Intake, IV Titration 0 Amount Sodium Chloride 0.9% 1, 0 000 ml @ 20 mls/hr IV . Q24H [facility] Rx#:[id number] Oral 240 Blood Product 620 Rc As-1 Unit 310 [id number] Output: Urine 500 725 Other: Voiding Method Bedpan Bedpan # Voids 1 1 1 - Constitutional General appearance: Present: cooperative, no acute distress. Absent: average body habitus, disheveled, mild distress, morbidly obese, obese, severe distress , thin - EENT Eyes: Present: abnormal pupil, normal appearance. Absent: anicteric sclerae, disc margins sharp, edentulous, EOMI, PERRLA, fundus normal, photophobia, dentition normal, poor dentition, ptosis, scleral icterus ENT: Present: normal oropharynx. Absent: hard of hearing, hearing grossly normal, NA/AT, other, pharyngeal erythema, thrush, tonsillar exudates, tonsillar swelling Ears: bilateral: normal - Neck Neck: Present: normal ROM. Absent: lymphadenopathy, other, rigidity, stridor, thyromegaly Carotids: bilateral: upstroke normal Thyroid: bilateral: normal size - Respiratory Respiratory: bilateral: CTA, diminished - Cardiovascular Rhythm: regular Heart sounds: normal: S1, S2 Abnormal Heart Sounds: Present: systolic murmur - Gastrointestinal General gastrointestinal: Present: distended, organomegaly, soft. Absent: absent bowel sounds, decreased bowel sounds, hepatomegaly, hyperactive bowel sounds, normal bowel sounds, rigid, scaphoid, splenomegaly, tenderness, umbilical hernia, ventral hernia - Integumentary Integumentary: Present: normal, pale, rash. Absent: calor, cellulitis, cyanotic , decreased turgor, flushed, jaundiced, normal turgor, ulcer - Neurologic Neurologic: Present: CNII-XII intact - Musculoskeletal Musculoskeletal: Present: gait normal, generalized weakness, strength equal bilaterally. Absent: right sided weakness, left sided weakness - Psychiatric Psychiatric: Present: A&O x's 3, appropriate affect - Labs CBC & Chem 7: 12/04/16 05:52 12/04/16 05:52 Labs: Abnormal Lab Results - Last 24 Hours (Table) 12/03/16 12/03/16 12/03/16 Range/Units 05:10 11:26 16:27 RBC (3.80-5.40) m/uL Hgb (11.4-16.0) gm/dL Hct (34.0-46.0) % Plt Count (150-450) k/uL Lymphocytes # (1.0-4.8) k/uL Chloride (98-107) mmol/L BUN (7-17) mg/dL Creatinine (0.52-1.04) mg/dL POC Glucose (mg/dL) (75-99) mg/dL Troponin I 1.580 H* 3.770 H* (0.000-0.034) ng/mL Total Protein (6.3-8.2) g/dL Albumin (3.5-5.0) g/dL Crossmatch See Detail 12/03/16 12/03/16 12/03/16 Range/Units 16:32 21:39 23:31 RBC (3.80-5.40) m/uL Hgb (11.4-16.0) gm/dL Hct (34.0-46.0) % Plt Count (150-450) k/uL Lymphocytes # (1.0-4.8) k/uL Chloride (98-107) mmol/L BUN (7-17) mg/dL Creatinine (0.52-1.04) mg/dL POC Glucose (mg/dL) 186 H 123 H (75-99) mg/dL Troponin I 5.810 H* (0.000-0.034) ng/mL Total Protein (6.3-8.2) g/dL Albumin (3.5-5.0) g/dL Crossmatch 12/04/16 12/04/16 Range/Units 05:52 05:52 RBC 2.40 L (3.80-5.40) m/uL Hgb 7.4 L (11.4-16.0) gm/dL Hct 23.5 L (34.0-46.0) % Plt Count 129 L (150-450) k/uL Lymphocytes # 0.5 L (1.0-4.8) k/uL Chloride 108 H (98-107) mmol/L BUN 61 H (7-17) mg/dL Creatinine 1.50 H (0.52-1.04) mg/dL POC Glucose (mg/dL) (75-99) mg/dL Troponin I (0.000-0.034) ng/mL Total Protein 4.7 L (6.3-8.2) g/dL Albumin 2.7 L (3.5-5.0) g/dL Crossmatch Assessment and Plan Plan: 1 acute chest pain with elevated troponin: This is causing her as non-ST NV with the current problem patient be seeing cardiology repeat troponin 3 EKG echocardiogram will be done patient might require to have some sort of intervention either stress test or heart cath when she is more stable. Of course patient could have increase anginal symptom with the severity of her anemia at this point. With increased troponin this point assisted cause her to be non-ST NV continued see cardiology and continue conservative management heart catheter at this point is not a good idea specially with her creatinine and chronic kidney disease. 2 severe iron deficiency anemia: With chronic anemia patient will need blood transfusion and iron infusion Hemoccult will be done continue PPI for GI prophylaxis will watch patient carefully for any further bleed and further endoscopy to be determined based on the finding and. No endoscopy will be done at this point with the hemoglobin remained little bit low patient will be going for another unit of blood transfusion. 3 severe dyspnea and shortness of breath secondary to acute non-ST NV and severe anemia the same time try to treat underlying disease. 4 stage III chronic kidney disease: Has been seen nephrology. 5 rheumatoid arthritis: Has been seen Dr. Marlow. Still from her list of medication looks on prednisone only with no biological agent at this point. 6 chronic pain syndrome: Patient has been on MS Contin 15 mg twice a day along with Lavalette 10/325 g every 4 hours as needed. 7 hypothyroidism: Remain on Cytomel and Synthroid together. 8 diabetes: Patient has been on Prandin 1 mg in the morning and 2 mg at noontime. 9 history of CAD: Has been seen cardiology regular basis. 10 hypertension: Patient has been on hydralazine 50 mg 3 times a day along with Coreg 25 g twice a day. 11 fluid overload: Has been on furosemide 40 mg 5 days a week. 12 hyperlipidemia: Remain on Zocor 40 mg daily. 13 chronic neuropathy: Mostly idiopathic peripheral neuropathy and diabetic neuropathy as well to continue Neurontin 100 mg 3 times a day. 14 GI prophylaxis: Patient will be on pantoprazole IV. Has been on Prilosec 20 mg twice a day as an outpatient. 15 DVT prophylaxis: Not on any anticoagulation but will keep patient on knee- high CHAUNCEY hose and Venodyne boots. CODE STATUS: Full code.
[2016-12-04 16:45] LABS: Glucose,Whole Blood 108 mg/dL (75-99)
[2016-12-04 20:32] LABS: Glucose,Whole Blood 154 mg/dL (75-99)
[2016-12-04] MEDS: hydrALAZINE HCL 25 MG TAB PO SCH (20:58)
[2016-12-04] MEDS: FERROUS SULFATE 325 MG TAB PO SCH (21:08)
[2016-12-04] MEDS: ATORVASTATIN 40 MG TAB PO SCH (21:08)
[2016-12-04] MEDS: MAGNESIUM OXIDE 400 MG TAB PO SCH (21:08)
[2016-12-05] MEDS: HYDROcodone/APAP 10-325MG 1 EACH TAB PO PRN (05:30)
[2016-12-05 06:23] LABS: Basophils % (A) 0 %; CH 30.8; CHCM 32.9; Eosinophils # (A) 0.2 k/uL (0-0.7); Eosinophils % (A) 4 %; HCT 30.5 % (34.0-46.0); HDW 3.29; Luc # (Auto) 0.03; Luc % (Auto) 1; Lymphocytes # (A) 0.6 k/uL (1.0-4.8); Lymphocytes % (A) 10 %; MCH 30.2 pg (25.0-35.0); MCHC 31.9 g/dL (31.0-37.0); MCV 94.6 fL (80.0-100.0); Monocytes # (A) 0.3 k/uL (0-1.0); Monocytes % (A) 5 %; Neutrophils % (A) 81 %; RBC 3.22 m/uL (3.80-5.40); RDW 15.7 % (11.5-15.5); WBC 6.1 k/uL (3.8-10.6); WBC (Perox) 5.81
[2016-12-05 06:25] LABS: Glucose,Whole Blood 91 mg/dL (75-99)
[2016-12-05 06:28] LABS: HGB 9.7 gm/dL (11.4-16.0)
[2016-12-05] MEDS: PANTOPRAZOLE 40 MG TABLET PO SCH ×2 (06:33→17:05)
[2016-12-05] MEDS: CARVEDILOL 12.5 MG TAB PO SCH ×2 (06:33→17:05)
[2016-12-05] MEDS: LEVOTHYROXINE 25 MCG TAB PO SCH (06:34)
[2016-12-05 06:36] LABS: Calcium 8.5 mg/dL (8.4-10.2); Potassium 4.5 mmol/L (3.5-5.1); Total Bilirubin 0.7 mg/dL (0.2-1.3); Total Protein 5.1 g/dL (6.3-8.2)
[2016-12-05] MEDS: REPAGLINIDE 1 MG TAB PO SCH ×2 (06:52→12:11)
[2016-12-05] MEDS: CYANOCOBALAMIN 500 MCG TAB PO SCH (08:46)
[2016-12-05] MEDS: SODIUM BICARBONATE TAB 650 MG TAB PO SCH (08:47)
[2016-12-05] MEDS: GABAPENTIN 100 MG CAP PO SCH ×3 (08:47→21:00)
[2016-12-05] MEDS: hydrALAZINE HCL 50 MG TAB PO SCH ×3 (08:48→21:00)
[2016-12-05] MEDS: MORPHINE SULFATE ER 15 MG TABLET PO SCH ×2 (08:48→20:58)
[2016-12-05] MEDS: predniSONE 10 MG TAB PO SCH (08:49)
[2016-12-05] MEDS: LIOTHYRONINE SODIUM 5 MCG TAB PO SCH (08:49)
--- NOTE | 2016-12-05 11:17 | ECHOF ---
Referral Reason:chest pain MEASUREMENTS -------- HEIGHT: 162.6 cm WEIGHT: 78.9 kg BP: 136/70 RVIDd: 2.9 cm (< 3.3) IVSd: 1.1 cm (0.6 - 1.1) LVIDd: 4.3 cm (3.9 - 5.3) LVPWd: 1.1 cm (0.6 - 1.1) IVSs: 1.4 cm LVIDs: 2.9 cm LVPWs: 1.6 cm LA Diam: 3.5 cm (2.7 - 3.8) LAESV Index (A-L): 36.56 ml/m Ao Diam: 3.0 cm (2.0 - 3.7) AV Cusp: 2.2 cm (1.5 - 2.6) MV EXCURSION: 18.221 mm (> 18.000) MV EF SLOPE: 88 mm/s (70 - 150) EPSS: 0.6 cm MV E Cristopher: 1.10 m/s MV DecT: 292 ms MV A Cristopher: 1.14 m/s MV E/A Ratio: 0.96 RAP: 5.00 mmHg RVSP: 25.15 mmHg FINDINGS -------- Sinus rhythm with extra systolic beats. This was a technically adequate study. The left ventricular size is normal. There is borderline concentric left ventricular hypertrophy. Overall left ventricular systolic function is normal with, an EF between 55 - 60 %. The right ventricle is normal in size. LA is moderately dilated 34-39 ml/m2 The right atrium is normal in size. Aortic valve is trileaflet and is mildly thickened. The mitral valve leaflets are mildly thickened. Mild mitral annular calcification present. Mild mitral regurgitation is present. Mild tricuspid regurgitation present. Right ventricular systolic pressure is normal at < 35 mmHg. Trace/mild (physiologic) pulmonic regurgitation. The aortic root, ascending aorta and aortic arch are normal. Normal inferior vena cava with normal inspiratory collapse consistent with estimated right atrial pressure of 5 mmHg. The pericardium is normal. CONCLUSIONS -------- 1. Sinus rhythm with extra systolic beats. 2. The mitral valve leaflets are mildly thickened. 3. Mild mitral annular calcification present. 4. Mild mitral regurgitation is present. 5. Mild tricuspid regurgitation present. 6. Right ventricular systolic pressure is normal at < 35 mmHg. 7. Trace/mild (physiologic) pulmonic regurgitation. 8. The aortic root, ascending aorta and aortic arch are normal. 9. Normal inferior vena cava with normal inspiratory collapse consistent with estimated right atrial pressure of 5 mmHg. 10. The pericardium is normal. 11. This was a technically adequate study. 12. The left ventricular size is normal. 13. There is borderline concentric left ventricular hypertrophy. 14. Overall left ventricular systolic function is normal with, an EF between 55 - 60 %. 15. The right ventricle is normal in size. 16. LA is moderately dilated 34-39 ml/m2 17. The right atrium is normal in size. 18. Aortic valve is trileaflet and is mildly thickened. HOOP CUTTER: Vero Corral RDCS
[2016-12-05 11:53] LABS: Glucose,Whole Blood 87 mg/dL (75-99)
[2016-12-05] MEDS: ISOSORBIDE MONONITRATE ER 30 MG TAB.ER.24H PO SCH (12:11)
[2016-12-05] MEDS: CALCITRIOL 0.25 MCG CAP PO SCH (12:11)
--- NOTE | 2016-12-05 12:23 | P.PN ---
Subjective Principal diagnosis: Chest pain This is a 66-year-old female with known history of chronic anemia, prior GI bleed, rheumatoid arthritis, hypertension, hyperlipidemia, chronic kidney disease, who presented to the hospital with symptoms of chest discomfort with associated shortness of breath. She was seen in consultation yesterday by Dr. Ramírez. Initial EKG on presentation here did show some ST depression in the anterior leads. Hemoglobin on admission 6.8, patient did receive blood transfusion and her hemoglobin this morning is 9.7. BUN today 62 with a creatinine of 1.7. Troponins came back to be positive at 0.061, 1.5, 3.7, 5.8, suggesting non-Q-wave myocardial infarction. Patient was seen in consultation by Dr. Hinkle, who preferred not proceeding with upper or lower scope for at least [address] Perales did have a discussion this morning with Dr. Lewis regarding the plan of care and the plan for endoscopy procedures. Decision was made at this time to maximize the patient's medical therapy. We will add a baby aspirin to her medication regime along with Imdur. Continue statins and Coreg. At the time of my examination this morning, patient is chest pain-free. Echocardiogram with Doppler study was performed which revealed an ejection fraction of 55-60%. Objective - Vital Signs Vital signs: Vital Signs Temp 97.6 F 12/05/16 08:00 Pulse 88 12/05/16 08:00 Resp 18 12/05/16 08:00 BP 136/70 12/05/16 08:00 Pulse Ox 95 12/05/16 08:00 Intake & Output 12/04/16 12/05/16 12/05/16 18:59 06:59 18:59 Intake Total 1370 240 150 Output Total 150 Balance 1220 240 150 Weight 79 kg Intake: Intake, IV Titration 100 240 Amount Sodium Chloride 0.9% 1, 100 240 000 ml @ 20 mls/hr IV . Q24H [facility] Rx#:[id number] Oral 650 150 Blood Product 620 Rc As-1 Unit 310 [id number] Output: Urine 150 Other: Voiding Method Bedpan Bedpan Bedpan # Voids 1 1 - Exam PHYSICAL EXAMINATION: HEENT: Head is atraumatic, normocephalic. Pupils equal, round. Neck is supple. There is no elevated jugular venous pressure. HEART EXAMINATION: Heart S1 and S2 systolic murmur is heard. CHEST EXAMINATION: Lungs are clear to auscultation and precussion. No chest wall tenderness is noted on palpation or with deep breathing. ABDOMEN: Soft, nontender. Bowel sounds are heard. No organomegaly noted. EXTREMITIES: 2+ peripheral pulses with no evidence of peripheral edema and no calf tenderness noted. NEUROLOGIC patient is awake, alert and oriented -3. . - Labs CBC & Chem 7: 12/05/16 05:59 12/05/16 05:59 Labs: Abnormal Lab Results - Last 24 Hours (Table) 12/03/16 12/04/16 12/04/16 Range/Units 05:10 16:44 20:28 RBC (3.80-5.40) m/uL Hgb (11.4-16.0) gm/dL Hct (34.0-46.0) % RDW (11.5-15.5) % Plt Count (150-450) k/uL Lymphocytes # (1.0-4.8) k/uL BUN (7-17) mg/dL Creatinine (0.52-1.04) mg/dL POC Glucose (mg/dL) 108 H 154 H (75-99) mg/dL Total Protein (6.3-8.2) g/dL Albumin (3.5-5.0) g/dL Crossmatch See Detail 12/05/16 12/05/16 Range/Units 05:59 05:59 RBC 3.22 L (3.80-5.40) m/uL Hgb 9.7 L D (11.4-16.0) gm/dL Hct 30.5 L (34.0-46.0) % RDW 15.7 H (11.5-15.5) % Plt Count 119 L (150-450) k/uL Lymphocytes # 0.6 L (1.0-4.8) k/uL BUN 62 H (7-17) mg/dL Creatinine 1.72 H (0.52-1.04) mg/dL POC Glucose (mg/dL) (75-99) mg/dL Total Protein 5.1 L (6.3-8.2) g/dL Albumin 2.8 L (3.5-5.0) g/dL Crossmatch Assessment and Plan (1) NSTEMI (non-ST elevated myocardial infarction) Status: Acute (2) Anemia Status: Acute (3) Kidney disease Status: Acute (4) Rheumatoid arthritis Status: Acute (5) Diabetes Status: Acute (6) HTN (hypertension) Status: Acute Plan: From cardiology's perspective, we will put the patient on a small dose of Imdur along with a baby aspirin daily, maximize her medical therapy at this time. Once she is stable from a GI perspective she will require a cardiac workup for underlying coronary artery disease. DNP note has been reviewed, I agree with a documented findings and plan of care. Patient was seen and examined.
--- NOTE | 2016-12-05 12:52 | P.PN ---
Subjective Patient is a 66-year-old female with medical history significant for chronic anemia, prior GI bleed, rheumatoid arthritis, and chronic kidney disease admitted to the hospital with chief complaint of chest discomfort and shortness of breath. Patient was found to have evidence of profound anemia with a hemoglobin of 6.8 and non-ST elevated myocardial infarction. No evidence of active bleeding. Patient has been transfused with a total of 2 units of PRBC and today's hemoglobin is 9.7. Patient denies nausea, vomiting, chest pain, abdominal pain, diarrhea or constipation. No evidence of overt bleeding. Objective - Vital Signs Vital signs: Vital Signs Temp 97.6 F 12/05/16 08:00 Pulse 88 12/05/16 08:00 Resp 18 12/05/16 08:00 BP 136/70 12/05/16 08:00 Pulse Ox 95 12/05/16 08:00 Intake & Output 12/04/16 12/05/16 12/05/16 18:59 06:59 18:59 Intake Total 1370 240 150 Output Total 150 Balance 1220 240 150 Weight 79 kg Intake: Intake, IV Titration 100 240 Amount Sodium Chloride 0.9% 1, 100 240 000 ml @ 20 mls/hr IV . Q24H [facility] Rx#:[id number] Oral 650 150 Blood Product 620 Rc As-1 Unit 310 [id number] Output: Urine 150 Other: Voiding Method Bedpan Bedpan Bedpan # Voids 1 1 - Exam GENERAL: Pt awake and alert, well-appearing, well-nourished, and in no acute distress. LUNGS: Breath sounds clear to auscultation bilaterally. No wheezes, rales, or rhonchi. HEART: Heart S1, S2, no S3 or S4. Regular rate and rhythm. No murmurs, rubs or gallops. ABDOMEN: Soft, nontender, nondistended, normoactive bowel sounds. No guarding, no rebound. No masses or organomegaly appreciated. - Labs CBC & Chem 7: 12/05/16 05:59 12/05/16 05:59 Labs: Abnormal Lab Results - Last 24 Hours (Table) 12/03/16 12/04/16 12/04/16 Range/Units 05:10 16:44 20:28 RBC (3.80-5.40) m/uL Hgb (11.4-16.0) gm/dL Hct (34.0-46.0) % RDW (11.5-15.5) % Plt Count (150-450) k/uL Lymphocytes # (1.0-4.8) k/uL BUN (7-17) mg/dL Creatinine (0.52-1.04) mg/dL POC Glucose (mg/dL) 108 H 154 H (75-99) mg/dL Total Protein (6.3-8.2) g/dL Albumin (3.5-5.0) g/dL Crossmatch See Detail 12/05/16 12/05/16 Range/Units 05:59 05:59 RBC 3.22 L (3.80-5.40) m/uL Hgb 9.7 L D (11.4-16.0) gm/dL Hct 30.5 L (34.0-46.0) % RDW 15.7 H (11.5-15.5) % Plt Count 119 L (150-450) k/uL Lymphocytes # 0.6 L (1.0-4.8) k/uL BUN 62 H (7-17) mg/dL Creatinine 1.72 H (0.52-1.04) mg/dL POC Glucose (mg/dL) (75-99) mg/dL Total Protein 5.1 L (6.3-8.2) g/dL Albumin 2.8 L (3.5-5.0) g/dL Crossmatch Assessment and Plan Plan: Impression: 1. Anemia suspect of chronic disease status post 2 units of PRBC. 2. Non-ST elevated myocardial infarction. Plan: Continue cardiology workup. If needed patient will undergo EGD when medically stable. The above impression and plan have been discussed and directed by Dr. Camacho. Rowan ESPARZA acting as scribe for Dr. Camacho.
[2016-12-05] MEDS: ASPIRIN 81 MG CHEW PO SCH (13:55)
--- NOTE | 2016-12-05 14:43 | P.PN ---
Subjective 66-year-old female one of Dr. Lerner's patient with past medical history of rheumatoid arthritis hyperlipidemia chronic anemia and chronic kidney disease patient was known to have history of kidney stone and recurrent lower back pain secondary to compression. Patient was in the hospital last in 09/25/2016 for nausea vomiting and diarrhea was treated and did well. Repeat lab after her discharge came with hemoglobin of 8.8 and then up to 10 g. Patient apparently was doing well until 2:30 AM when she woke up having significant shortness of breath and walk to the bathroom found her sugar to be good at the time she ended up having to take Xanax because of mild anxiety as well but developed to have significant dizziness and chest discomfort midsternum radiating toward the left upper side of her chest. Then she woke up her family was giving some nitro and EMS was called patient brought to the emergency department at [facility] where was seen and evaluated surprisingly her troponin came back slightly elevated EKG didn't show any change but patient had significant anemia with hemoglobin running in the 6 g significant drop from last month. With above problem Patient was started on blood transfusion admitted to the hospital will be seen cardiology and general surgery for possible need for endoscopy. Hemoccult will be done as well patient remember having slight increase abdominal pain but no tarry stool or bright red blood per rectum lately. Surprisingly troponin came back slightly bit higher at this point in the cystic is up to be non-ST MT. Seen Dr. Camacho general surgery and Dr. Ramírez cardiology at this point even patient will require some sort of intervention for endoscopy but with the new onset of MT and elevated troponin this is need to be delayed for a few weeks in the meanwhile treat medically. Hemoglobin still tiny bit low we will add 1 unit of RBC today. 12/05: Echocardiogram reveals mild mitral regurgitation, mild tricuspid regurgitation, borderline concentric left hypertrophy, EF 55-60%, moderately dilated at 34-39, aortic valve trileaflet with mild thickening. Patient has been diagnosed with a non-ST elevated myocardial infarction and cardiology has recommended baby aspirin, Imdur statin and Coreg. She will require cardiac workup once stable from GI perspective.. Objective - Vital Signs Vital signs: Vital Signs Temp 98.1 F 12/05/16 12:00 Pulse 78 12/05/16 12:00 Resp 18 12/05/16 12:00 BP 110/50 12/05/16 12:00 Pulse Ox 94 L 12/05/16 12:00 Intake & Output 12/04/16 12/05/16 12/05/16 18:59 06:59 18:59 Intake Total 1370 240 465 Output Total 150 350 Balance 1220 240 115 Weight 79 kg Intake: Intake, IV Titration 100 240 40 Amount Sodium Chloride 0.9% 1, 100 240 40 000 ml @ 20 mls/hr IV . Q24H [facility] Rx#:[id number] Oral 650 425 Blood Product 620 Rc As-1 Unit 310 [id number] Output: Urine 150 350 Other: Voiding Method Bedpan Bedpan Bedpan # Voids 1 1 2 - Exam General appearance: Present: cooperative, no acute distress. Absent: average body habitus, disheveled, mild distress, morbidly obese, obese, severe distress , thin - EENT Eyes: Present: abnormal pupil, normal appearance. Absent: anicteric sclerae, disc margins sharp, edentulous, EOMI, PERRLA, fundus normal, photophobia, dentition normal, poor dentition, ptosis, scleral icterus ENT: Present: normal oropharynx. Absent: hard of hearing, hearing grossly normal, NA/AT, other, pharyngeal erythema, thrush, tonsillar exudates, tonsillar swelling Ears: bilateral: normal - Neck Neck: Present: normal ROM. Absent: lymphadenopathy, other, rigidity, stridor, thyromegaly Carotids: bilateral: upstroke normal Thyroid: bilateral: normal size - Respiratory Respiratory: bilateral: CTA, diminished - Cardiovascular Rhythm: regular Heart sounds: normal: S1, S2 Abnormal Heart Sounds: Present: systolic murmur - Gastrointestinal General gastrointestinal: Present: distended, organomegaly, soft. Absent: absent bowel sounds, decreased bowel sounds, hepatomegaly, hyperactive bowel sounds, normal bowel sounds, rigid, scaphoid, splenomegaly, tenderness, umbilical hernia, ventral hernia - Integumentary Integumentary: Present: normal, pale, rash. Absent: calor, cellulitis, cyanotic , decreased turgor, flushed, jaundiced, normal turgor, ulcer - Neurologic Neurologic: Present: CNII-XII intact - Musculoskeletal Musculoskeletal: Present: gait normal, generalized weakness, strength equal bilaterally. Absent: right sided weakness, left sided weakness - Psychiatric Psychiatric: Present: A&O x's 3, appropriate affect - Labs CBC & Chem 7: 12/05/16 05:59 12/05/16 05:59 Labs: Abnormal Lab Results - Last 24 Hours (Table) 12/03/16 12/04/16 12/04/16 Range/Units 05:10 16:44 20:28 RBC (3.80-5.40) m/uL Hgb (11.4-16.0) gm/dL Hct (34.0-46.0) % RDW (11.5-15.5) % Plt Count (150-450) k/uL Lymphocytes # (1.0-4.8) k/uL BUN (7-17) mg/dL Creatinine (0.52-1.04) mg/dL POC Glucose (mg/dL) 108 H 154 H (75-99) mg/dL Total Protein (6.3-8.2) g/dL Albumin (3.5-5.0) g/dL Crossmatch See Detail 12/05/16 12/05/16 Range/Units 05:59 05:59 RBC 3.22 L (3.80-5.40) m/uL Hgb 9.7 L D (11.4-16.0) gm/dL Hct 30.5 L (34.0-46.0) % RDW 15.7 H (11.5-15.5) % Plt Count 119 L (150-450) k/uL Lymphocytes # 0.6 L (1.0-4.8) k/uL BUN 62 H (7-17) mg/dL Creatinine 1.72 H (0.52-1.04) mg/dL POC Glucose (mg/dL) (75-99) mg/dL Total Protein 5.1 L (6.3-8.2) g/dL Albumin 2.8 L (3.5-5.0) g/dL Crossmatch Assessment and Plan Plan: 1 acute non-ST elevated myocardial infarction. Patient is followed by cardiology. Continue aspirin 81 mg daily, Lipitor 40 mg daily, Coreg 25 mg twice daily, Imdur 30 mg daily with plan to follow-up for cardiac workup once GI symptoms are resolved. 2 severe iron deficiency anemia: With chronic anemia patient will need blood transfusion and iron infusion. GI is following with no plan for endoscopy at this visit. 3 severe dyspnea and shortness of breath secondary to acute non-ST MT and severe anemia the same time try to treat underlying disease. 4 stage III chronic kidney disease: Has been seen nephrology. 5 rheumatoid arthritis: Has been seen Dr. Marlow. Still from her list of medication looks on prednisone only with no biological agent at this point. 6 chronic pain syndrome: Patient has been on MS Contin 15 mg twice a day along with [place] 10/325 g every 4 hours as needed. 7 hypothyroidism: Remain on Cytomel and Synthroid together. 8 diabetes: Patient has been on Prandin 1 mg in the morning and 2 mg at noontime. 9 history of CAD: Has been seen cardiology regular basis. 10 hypertension: Patient has been on hydralazine 50 mg 3 times a day along with Coreg 25 g twice a day. 11 fluid overload: Has been on furosemide 40 mg 5 days a week. 12 hyperlipidemia: Remain on statin. 13 chronic neuropathy: Mostly idiopathic peripheral neuropathy and diabetic neuropathy as well to continue Neurontin 100 mg 3 times a day. 14 GI prophylaxis: Patient will be on pantoprazole IV. Has been on Prilosec 20 mg twice a day as an outpatient. 15 DVT prophylaxis: Not on any anticoagulation but will keep patient on knee- high CHAUNCEY hose and Venodyne boots. CODE STATUS: Full code. Discharge plan: Home with VNA Impression and plan of care have been directed as dictated by the signing physician. Nadja Kaur nurse practitioner acting as scribe for signing physician.
[2016-12-05 16:55] LABS: Glucose,Whole Blood 179 mg/dL (75-99)
[2016-12-05 20:39] LABS: Glucose,Whole Blood 259 mg/dL (75-99)
[2016-12-05] MEDS: MAGNESIUM OXIDE 400 MG TAB PO SCH (20:59)
[2016-12-05] MEDS: FERROUS SULFATE 325 MG TAB PO SCH (20:59)
[2016-12-05] MEDS: ATORVASTATIN 40 MG TAB PO SCH (20:59)
[2016-12-05 22:40] LABS: Glucose,Whole Blood 255 mg/dL (75-99)
[2016-12-06] MEDS: PANTOPRAZOLE 40 MG TABLET PO SCH ×2 (06:01→17:39)
[2016-12-06] MEDS: CARVEDILOL 12.5 MG TAB PO SCH ×2 (06:02→17:39)
[2016-12-06] MEDS: LEVOTHYROXINE 25 MCG TAB PO SCH (06:02)
[2016-12-06 06:03] LABS: Glucose,Whole Blood 115 mg/dL (75-99)
[2016-12-06] MEDS: REPAGLINIDE 1 MG TAB PO SCH ×2 (06:03→12:02)
[2016-12-06 06:05] LABS: CH 30.9; CHCM 32.4; HCT 27.5 % (34.0-46.0); HDW 2.98; HGB 8.8 gm/dL (11.4-16.0); MCH 30.9 pg (25.0-35.0); MCHC 32.2 g/dL (31.0-37.0); MCV 95.9 fL (80.0-100.0); Mean Platelet Volume 8.3; RBC 2.86 m/uL (3.80-5.40); RDW 15.5 % (11.5-15.5); WBC 6.6 k/uL (3.8-10.6)
[2016-12-06 06:14] LABS: INR 1.1 (<1.1); Prothrombin Time 10.9 sec (9.0-12.0)
[2016-12-06 06:21] LABS: Calcium 8.4 mg/dL (8.4-10.2); Potassium 4.7 mmol/L (3.5-5.1); Total Bilirubin 0.6 mg/dL (0.2-1.3); Total Protein 4.7 g/dL (6.3-8.2)
[2016-12-06] MEDS: NITROGLYCERIN SL TABS 0.4 MG TAB SUBLINGUAL ONE ×2 (08:10→08:21)
[2016-12-06] MEDS ORDERED: NITROGLYCERIN SL TABS 0.4 MG TAB SUBLINGUAL PRN (08:22)
[2016-12-06] MEDS: ISOSORBIDE MONONITRATE ER 30 MG TAB.ER.24H PO SCH (08:25)
[2016-12-06] MEDS: SODIUM BICARBONATE TAB 650 MG TAB PO SCH (08:25)
[2016-12-06] MEDS: MORPHINE SULFATE ER 15 MG TABLET PO SCH ×2 (08:25→21:17)
[2016-12-06] MEDS: LIOTHYRONINE SODIUM 5 MCG TAB PO SCH (08:25)
[2016-12-06] MEDS: hydrALAZINE HCL 50 MG TAB PO SCH ×3 (08:25→21:17)
[2016-12-06] MEDS: predniSONE 10 MG TAB PO SCH (08:25)
[2016-12-06] MEDS: ASPIRIN 81 MG CHEW PO SCH (08:26)
[2016-12-06] MEDS: GABAPENTIN 100 MG CAP PO SCH ×3 (08:26→21:17)
[2016-12-06] MEDS: CYANOCOBALAMIN 500 MCG TAB PO SCH (08:26)
[2016-12-06] MEDS: FUROSEMIDE 40 MG TAB PO SCH (08:26)
--- NOTE | 2016-12-06 11:29 | P.NPCON ---
History of Present Illness - Reason for Consult chronic renal failure - History of Present Illness Reason for consultation: Acute kidney injury on chronic kidney disease History of present illness: Patient is a 66-year-old female seen in renal consultation for acute kidney injury on chronic kidney disease. Patient has chronic kidney disease stage III with baseline creatinine near 1.3-1.5 secondary to diabetic kidney disease. Patient presented to the hospital with dyspnea along with weakness and fatigue. Her hemoglobin was noted to be low at 6.8. She did receive 2 units of blood transfusion and hemoglobin was up to 9.7 yesterday. Today it is down to 8.8. She denies any melena or hematochezia. Denies any hematuria. Admits to good urine output. Appetite is good. She was also having chest pains earlier but is now improved. There is concern for acute coronary syndrome and potential cardiac catheterization this admission. Hemodynamically she stable. Denies swelling in her extremities. Denies use of NSAIDs as an outpatient. Vital signs are stable. General: The patient appeared well nourished and normally developed. HEENT: Head exam is unremarkable. Neck is without jugular venous distension. LUNGS: Lungs are clear to auscultation and percussion. Breath sounds decreased. HEART: Rate and Rhythm are regular. First and second heart sounds normal. No murmurs, rubs or gallops. ABDOMEN: Abdominal exam reveals normal bowel sounds. Non-tender and non- distended. No evidence of peritonitis. EXTREMITITES: No clubbing, cyanosis, or edema. Past Medical History Past Medical History: Hyperlipidemia, Renal Disease, Thyroid Disorder Additional Past Medical History / Comment(s): low vitamin d levels which caused renal deficiency, parathyroid overactive related to low vit d levels, chronic prednisone secondary to RA followed by Dr. Marlow, ANEMIA,COMPRESSION FX L1, PAST FALL. of lithiasis, Csection, gall bladder History of Any Multi-Drug Resistant Organisms: None Reported Past Surgical History: Orthopedic Surgery Additional Past Surgical History / Comment(s): right knee TKA 2, carpel tunnel , CYST REMOVED (NECK) AGE 6, 2 back surgery 2004 Past Anesthesia/Blood Transfusion Reactions: No Reported Reaction Past Psychological History: Anxiety Smoking Status: Never smoker Past Alcohol Use History: None Reported Past Drug Use History: None Reported - Past Family History Mother Additional Family Medical History / Comment(s): addisons disease Father Family Medical History: Hypertension Medications and Allergies Home Medications Medication Instructions Recorded Confirmed Type Omeprazole [PriLOSEC] 20 mg PO BID 02/20/14 12/03/16 History predniSONE 10 mg PO DAILY 02/20/14 12/03/16 History Cyanocobalamin [Vitamin B-12] 2,500 mcg PO DAILY 08/19/14 12/03/16 History Ergocalciferol [Vitamin D2 50,000 unit PO WE 08/19/14 12/03/16 History (DRISDOL)] Ferrous Sulfate [Iron (65 MG 325 mg PO HS 08/19/14 12/03/16 History Elemental)] Calcitriol 0.25 mcg PO SUTUFR 01/07/15 12/03/16 History Liothyronine Sodium [Cytomel] 5 mcg PO DAILY 01/07/15 12/03/16 History ALPRAZolam [Xanax] 0.25 mg PO BID PRN 09/02/16 12/03/16 History Carvedilol [Coreg] 25 mg PO BID 09/02/16 12/03/16 History Gabapentin [Neurontin] 100 mg PO TID 09/02/16 12/03/16 History Magnesium 200 mg PO HS 09/02/16 12/03/16 History Morphine Sulfate ER [Ms Contin] 15 mg PO BID 09/02/16 12/03/16 History Simvastatin [Zocor] 40 mg PO HS 09/02/16 12/03/16 History Repaglinide [Prandin] 1 mg PO DAILY 09/24/16 12/03/16 History Repaglinide [Prandin] 2 mg PO DAILY@1200 09/24/16 12/03/16 History HYDROcodone/APAP 10-325MG [[place] 1 tab PO Q4HR PRN 09/25/16 12/03/16 History 10-325] Furosemide [Lasix] 40 mg PO MOWEFR 12/03/16 12/03/16 History Sodium Bicarbonate Tab 650 mg PO DAILY 12/03/16 12/03/16 History hydrALAZINE HCL [Apresoline] 25 mg PO HS 12/03/16 12/03/16 History hydrALAZINE HCL [Apresoline] 50 mg PO TID 12/03/16 12/03/16 History Allergies Allergy/AdvReac Type Severity Reaction Status Date / Time codeine Allergy Rash/Hives Verified 12/03/16 07:41 Sulfa (Sulfonamide Allergy Rash/Hives Verified 12/03/16 07:41 Antibiotics) gold Allergy Unknown Uncoded 12/03/16 04:29 Physical Exam Vitals: Vital Signs Temp Pulse Pulse Resp BP BP BP 12/06/16 11:08 97.0 F L 86 18 103/56 12/06/16 08:18 97.3 F L 83 18 147/76 12/06/16 04:00 97.7 F 78 18 171/89 12/06/16 00:00 97.4 F L 76 18 148/78 12/05/16 20:00 97.5 F L 74 18 149/66 12/05/16 15:38 98.0 F 73 18 128/65 12/05/16 15:36 78 18 12/05/16 12:00 98.1 F 78 18 110/50 Pulse Ox 12/06/16 11:08 98 12/06/16 08:18 97 12/06/16 04:00 95 12/06/16 00:00 96 12/05/16 20:00 96 12/05/16 15:38 96 12/05/16 15:36 12/05/16 12:00 94 L Intake and Output 12/05/16 12/06/16 12/06/16 22:59 06:59 14:59 Intake Total 125 0 Output Total 300 250 Balance -175 -250 0 Intake: Oral 125 Blood Product 0 Rc As-3 Unit 0 [id number] Output: Urine 300 250 Other: Voiding Method Bedside Commode Bedside Commode # Voids 1 1 Weight 76 kg Results - Lab Results Most recent lab results Calcium 8.4 mg/dL (8.4-10.2) 12/06/16 05:50 Magnesium 2.0 mg/dL (1.6-2.3) 12/03/16 05:10 12/06/16 05:50 12/06/16 05:50 Assessment and Plan Plan: Assessment: #1. Nonoliguric acute kidney injury mostly prerenal secondary to acute anemia. Renal function stable with creatinine at 1.71 today. #2. Chronic kidney disease stage III secondary to diabetic kidney disease with baseline creatinine in the range of 1.3-1.5. #3. Acute anemia status post packed red blood cell transfusion. Receiving third unit of transfusion today. No active bleeding noted. #4. Non-ST elevated myocardial infarction. Plan: There are plans for cardiac catheterization this admission. I discussed with patient the risk of developing contrast-induced nephropathy post cardiac catheterization and even potentially requiring renal replacement therapy. She' s at a moderate risk due to her underlying CKD as well as diabetic status. Patient understands and is agreeable to proceed with cardiac catheterization. I will hydrate her with normal saline to be run at 75 mL an hour to be started tonight at 5 PM and to be continued for another 12 hours post cardiac catheterization. Hold diuretics. Next line avoid nephrotoxic agents and hypotensive episodes. Monitor hemoglobin and transfuse as needed. Surgery following. Repeat electrolytes in the morning. Thank you for the consultation. I will continue to follow the patient with you during her hospital stay.
[2016-12-06 11:45] LABS: Glucose,Whole Blood 123 mg/dL (75-99)
[2016-12-06] MEDS ORDERED: ERGOCALCIFEROL 50,000 UNIT CAP PO SCH (12:00)
--- NOTE | 2016-12-06 12:45 | P.PN ---
Subjective Patient is a 66-year-old female with medical history significant for chronic anemia, prior GI bleed, rheumatoid arthritis, and chronic kidney disease admitted to the hospital with chief complaint of chest discomfort and shortness of breath. Patient was found to have evidence of profound anemia with a hemoglobin of 6.8 and non-ST elevated myocardial infarction. No evidence of active bleeding. Patient has been transfused with a total of 2 units of PRBC and today's hemoglobin is 8.8. Patient denies nausea, vomiting, chest pain, abdominal pain, diarrhea or constipation. No evidence of overt bleeding. Objective - Vital Signs Vital signs: Vital Signs Temp 97.5 F L 12/06/16 11:28 Pulse 78 12/06/16 11:28 Resp 18 12/06/16 11:28 BP 118/92 12/06/16 11:28 Pulse Ox 99 12/06/16 11:28 Intake & Output 12/05/16 12/06/16 12/06/16 18:59 06:59 18:59 Intake Total 590 0 Output Total 350 550 Balance 240 -550 0 Weight 76 kg Intake: Intake, IV Titration 40 Amount Sodium Chloride 0.9% 1, 40 000 ml @ 20 mls/hr IV . Q24H [facility] Rx#:[id number] Oral 550 Blood Product 0 Rc As-3 Unit 0 [id number] Output: Urine 350 550 Other: Voiding Method Bedpan Bedside Commode # Voids 2 1 - Exam GENERAL: Pt awake and alert, well-appearing, well-nourished, and in no acute distress. LUNGS: Breath sounds clear to auscultation bilaterally. No wheezes, rales, or rhonchi. HEART: Heart S1, S2, no S3 or S4. Regular rate and rhythm. No murmurs, rubs or gallops. ABDOMEN: Soft, nontender, nondistended, normoactive bowel sounds. No guarding, no rebound. No masses or organomegaly appreciated. - Labs CBC & Chem 7: 12/06/16 05:50 12/06/16 05:50 Labs: Abnormal Lab Results - Last 24 Hours (Table) 12/05/16 12/05/16 12/05/16 Range/Units 16:47 20:38 22:36 RBC (3.80-5.40) m/uL Hgb (11.4-16.0) gm/dL Hct (34.0-46.0) % Plt Count (150-450) k/uL Chloride (98-107) mmol/L BUN (7-17) mg/dL Creatinine (0.52-1.04) mg/dL Glucose (74-99) mg/dL POC Glucose (mg/dL) 179 H 259 H 255 H (75-99) mg/dL Total Protein (6.3-8.2) g/dL Albumin (3.5-5.0) g/dL Crossmatch 12/06/16 12/06/16 12/06/16 Range/Units 05:50 05:50 06:01 RBC 2.86 L (3.80-5.40) m/uL Hgb 8.8 L (11.4-16.0) gm/dL Hct 27.5 L (34.0-46.0) % Plt Count 122 L (150-450) k/uL Chloride 108 H (98-107) mmol/L BUN 59 H (7-17) mg/dL Creatinine 1.71 H (0.52-1.04) mg/dL Glucose 114 H (74-99) mg/dL POC Glucose (mg/dL) 115 H (75-99) mg/dL Total Protein 4.7 L (6.3-8.2) g/dL Albumin 2.5 L (3.5-5.0) g/dL Crossmatch 12/06/16 12/06/16 Range/Units 09:15 11:41 RBC (3.80-5.40) m/uL Hgb (11.4-16.0) gm/dL Hct (34.0-46.0) % Plt Count (150-450) k/uL Chloride (98-107) mmol/L BUN (7-17) mg/dL Creatinine (0.52-1.04) mg/dL Glucose (74-99) mg/dL POC Glucose (mg/dL) 123 H (75-99) mg/dL Total Protein (6.3-8.2) g/dL Albumin (3.5-5.0) g/dL Crossmatch See Detail Assessment and Plan Plan: Impression: 1. Anemia suspect of chronic disease status post 2 units of PRBC. 2. Non-ST elevated myocardial infarction. Plan: Continue cardiology workup. If needed patient will undergo EGD when medically stable. The above impression and plan have been discussed and directed by Dr. Camacho. Rowan ESPARZA acting as scribe for Dr. Camacho.
[2016-12-06] MEDS: NITROGLYCERIN OINT 1 INCH/GM PACKET TOPICAL SCH ×3 (12:50→23:31)
--- NOTE | 2016-12-06 12:50 | P.PN ---
Subjective Principal diagnosis: Chest pain This is a 66-year-old female with known history of chronic anemia, prior GI bleed, rheumatoid arthritis, hypertension, hyperlipidemia, chronic kidney disease, who presented to the hospital with symptoms of chest discomfort with associated shortness of breath. She was seen in consultation by Dr. Ramírez. Initial EKG on presentation here did show some ST depression in the anterior leads. Hemoglobin on admission 6.8, patient did receive blood transfusion and her hemoglobin this morning is 8.8. BUN today 59 with a creatinine of 1.7. Troponins came back to be positive at 0.061, 1.5, 3.7, 5.8, suggesting non-Q-wave myocardial infarction. Patient did have an episode of chest pain through the night, and again this morning with significant EKG changes in the anterior wall region. Dr. Perales went in to see and evaluate the patient, he also spoke with Dr. Guido, gave him consent to proceed with cardiac catheterization if needed. Nephrology has also been consulted. We will keep the patient nothing by mouth at midnight for possible cardiac catheterization tomorrow with Dr. Perales. The risks and the benefits of been explained to the patient in detail. Objective - Vital Signs Vital signs: Vital Signs Temp 97.5 F L 12/06/16 11:28 Pulse 78 12/06/16 11:28 Resp 18 12/06/16 11:28 BP 118/92 12/06/16 11:28 Pulse Ox 99 12/06/16 11:28 Intake & Output 12/05/16 12/06/16 12/06/16 18:59 06:59 18:59 Intake Total 590 0 Output Total 350 550 Balance 240 -550 0 Weight 76 kg Intake: Intake, IV Titration 40 Amount Sodium Chloride 0.9% 1, 40 000 ml @ 20 mls/hr IV . Q24H [facility] Rx#:[id number] Oral 550 Blood Product 0 Rc As-3 Unit 0 [id number] Output: Urine 350 550 Other: Voiding Method Bedpan Bedside Commode # Voids 2 1 - Exam PHYSICAL EXAMINATION: HEENT: Head is atraumatic, normocephalic. Pupils equal, round. Neck is supple. There is no elevated jugular venous pressure. HEART EXAMINATION: Heart S1 and S2 systolic murmur is heard. CHEST EXAMINATION: Lungs are clear to auscultation and precussion. No chest wall tenderness is noted on palpation or with deep breathing. ABDOMEN: Soft, nontender. Bowel sounds are heard. No organomegaly noted. EXTREMITIES: 2+ peripheral pulses with no evidence of peripheral edema and no calf tenderness noted. NEUROLOGIC patient is awake, alert and oriented -3. . - Labs CBC & Chem 7: 12/06/16 05:50 12/06/16 05:50 Labs: Abnormal Lab Results - Last 24 Hours (Table) 12/05/16 12/05/16 12/05/16 Range/Units 16:47 20:38 22:36 RBC (3.80-5.40) m/uL Hgb (11.4-16.0) gm/dL Hct (34.0-46.0) % Plt Count (150-450) k/uL Chloride (98-107) mmol/L BUN (7-17) mg/dL Creatinine (0.52-1.04) mg/dL Glucose (74-99) mg/dL POC Glucose (mg/dL) 179 H 259 H 255 H (75-99) mg/dL Total Protein (6.3-8.2) g/dL Albumin (3.5-5.0) g/dL Crossmatch 12/06/16 12/06/16 12/06/16 Range/Units 05:50 05:50 06:01 RBC 2.86 L (3.80-5.40) m/uL Hgb 8.8 L (11.4-16.0) gm/dL Hct 27.5 L (34.0-46.0) % Plt Count 122 L (150-450) k/uL Chloride 108 H (98-107) mmol/L BUN 59 H (7-17) mg/dL Creatinine 1.71 H (0.52-1.04) mg/dL Glucose 114 H (74-99) mg/dL POC Glucose (mg/dL) 115 H (75-99) mg/dL Total Protein 4.7 L (6.3-8.2) g/dL Albumin 2.5 L (3.5-5.0) g/dL Crossmatch 12/06/16 12/06/16 Range/Units 09:15 11:41 RBC (3.80-5.40) m/uL Hgb (11.4-16.0) gm/dL Hct (34.0-46.0) % Plt Count (150-450) k/uL Chloride (98-107) mmol/L BUN (7-17) mg/dL Creatinine (0.52-1.04) mg/dL Glucose (74-99) mg/dL POC Glucose (mg/dL) 123 H (75-99) mg/dL Total Protein (6.3-8.2) g/dL Albumin (3.5-5.0) g/dL Crossmatch See Detail Assessment and Plan (1) NSTEMI (non-ST elevated myocardial infarction) Status: Acute (2) Anemia Status: Acute (3) Kidney disease Status: Acute (4) Rheumatoid arthritis Status: Acute (5) Diabetes Status: Acute (6) HTN (hypertension) Status: Acute Plan: From cardiology's perspective, we'll keep the patient nothing by mouth at midnight. Continue IV hydration as per nephrology. Schedule the patient for cardiac catheterization tomorrow with Dr. Perales. The risks and benefits were explained to the patient in detail and she is willing to proceed. DNP note has been reviewed, I agree with a documented findings and plan of care. Patient was seen and examined.
--- NOTE | 2016-12-06 13:12 | P.PN ---
Subjective 66-year-old female one of Dr. Lerner's patient with past medical history of rheumatoid arthritis hyperlipidemia chronic anemia and chronic kidney disease patient was known to have history of kidney stone and recurrent lower back pain secondary to compression. Patient was in the hospital last in 09/25/2016 for nausea vomiting and diarrhea was treated and did well. Repeat lab after her discharge came with hemoglobin of 8.8 and then up to 10 g. Patient apparently was doing well until 2:30 AM when she woke up having significant shortness of breath and walk to the bathroom found her sugar to be good at the time she ended up having to take Xanax because of mild anxiety as well but developed to have significant dizziness and chest discomfort midsternum radiating toward the left upper side of her chest. Then she woke up her family was giving some nitro and EMS was called patient brought to the emergency department at [facility] where was seen and evaluated surprisingly her troponin came back slightly elevated EKG didn't show any change but patient had significant anemia with hemoglobin running in the 6 g significant drop from last month. With above problem Patient was started on blood transfusion admitted to the hospital will be seen cardiology and general surgery for possible need for endoscopy. Hemoccult will be done as well patient remember having slight increase abdominal pain but no tarry stool or bright red blood per rectum lately. Surprisingly troponin came back slightly bit higher at this point in the cystic is up to be non-ST LA. Seen Dr. Camacho general surgery and Dr. Ramírez cardiology at this point even patient will require some sort of intervention for endoscopy but with the new onset of LA and elevated troponin this is need to be delayed for a few weeks in the meanwhile treat medically. Hemoglobin still tiny bit low we will add 1 unit of RBC today. 12/05: Echocardiogram reveals mild mitral regurgitation, mild tricuspid regurgitation, borderline concentric left hypertrophy, EF 55-60%, moderately dilated at 34-39, aortic valve trileaflet with mild thickening. Patient has been diagnosed with a non-ST elevated myocardial infarction and cardiology has recommended baby aspirin, Imdur statin and Coreg. She will require cardiac workup once stable from GI perspective.. 12/06: We have added in consult with nephrology for chronic kidney disease stage III and acute kidney injury with concern for need for heart catheterization. Patient did have chest pain last evening. Her B UN as 59 and creatinine 1.71. Plan is to hydrate at 75 mL per hour and continue for 12 hours after heart catheterization. Diuretics are on hold. Cardiology has ordered 1 unit of packed RBCs for hemoglobin of 8.8. Objective - Vital Signs Vital signs: Vital Signs Temp 97.5 F L 12/06/16 11:28 Pulse 80 12/06/16 11:52 Resp 18 12/06/16 11:52 BP 137/72 12/06/16 11:52 Pulse Ox 99 12/06/16 11:52 Intake & Output 12/05/16 12/06/16 12/06/16 18:59 06:59 18:59 Intake Total 590 0 Output Total 350 550 Balance 240 -550 0 Weight 76 kg Intake: Intake, IV Titration 40 Amount Sodium Chloride 0.9% 1, 40 000 ml @ 20 mls/hr IV . Q24H [facility] Rx#:[id number] Oral 550 Blood Product 0 Rc As-3 Unit 0 [id number] Output: Urine 350 550 Other: Voiding Method Bedpan Bedside Commode # Voids 2 1 - Exam General appearance: Present: cooperative, no acute distress. Absent: average body habitus, disheveled, mild distress, morbidly obese, obese, severe distress , thin - EENT Eyes: Present: abnormal pupil, normal appearance. Absent: anicteric sclerae, disc margins sharp, edentulous, EOMI, PERRLA, fundus normal, photophobia, dentition normal, poor dentition, ptosis, scleral icterus ENT: Present: normal oropharynx. Absent: hard of hearing, hearing grossly normal, NA/AT, other, pharyngeal erythema, thrush, tonsillar exudates, tonsillar swelling Ears: bilateral: normal - Neck Neck: Present: normal ROM. Absent: lymphadenopathy, other, rigidity, stridor, thyromegaly Carotids: bilateral: upstroke normal Thyroid: bilateral: normal size - Respiratory Respiratory: bilateral: CTA, diminished - Cardiovascular Rhythm: regular Heart sounds: normal: S1, S2 Abnormal Heart Sounds: Present: systolic murmur - Gastrointestinal General gastrointestinal: Present: distended, organomegaly, soft. Absent: absent bowel sounds, decreased bowel sounds, hepatomegaly, hyperactive bowel sounds, normal bowel sounds, rigid, scaphoid, splenomegaly, tenderness, umbilical hernia, ventral hernia - Integumentary Integumentary: Present: normal, pale, rash. Absent: calor, cellulitis, cyanotic , decreased turgor, flushed, jaundiced, normal turgor, ulcer - Neurologic Neurologic: Present: CNII-XII intact - Musculoskeletal Musculoskeletal: Present: gait normal, generalized weakness, strength equal bilaterally. Absent: right sided weakness, left sided weakness - Psychiatric Psychiatric: Present: A&O x's 3, appropriate affect - Labs CBC & Chem 7: 12/06/16 05:50 12/06/16 05:50 Labs: Abnormal Lab Results - Last 24 Hours (Table) 12/05/16 12/05/16 12/05/16 Range/Units 16:47 20:38 22:36 RBC (3.80-5.40) m/uL Hgb (11.4-16.0) gm/dL Hct (34.0-46.0) % Plt Count (150-450) k/uL Chloride (98-107) mmol/L BUN (7-17) mg/dL Creatinine (0.52-1.04) mg/dL Glucose (74-99) mg/dL POC Glucose (mg/dL) 179 H 259 H 255 H (75-99) mg/dL Total Protein (6.3-8.2) g/dL Albumin (3.5-5.0) g/dL Crossmatch 12/06/16 12/06/16 12/06/16 Range/Units 05:50 05:50 06:01 RBC 2.86 L (3.80-5.40) m/uL Hgb 8.8 L (11.4-16.0) gm/dL Hct 27.5 L (34.0-46.0) % Plt Count 122 L (150-450) k/uL Chloride 108 H (98-107) mmol/L BUN 59 H (7-17) mg/dL Creatinine 1.71 H (0.52-1.04) mg/dL Glucose 114 H (74-99) mg/dL POC Glucose (mg/dL) 115 H (75-99) mg/dL Total Protein 4.7 L (6.3-8.2) g/dL Albumin 2.5 L (3.5-5.0) g/dL Crossmatch 12/06/16 12/06/16 Range/Units 09:15 11:41 RBC (3.80-5.40) m/uL Hgb (11.4-16.0) gm/dL Hct (34.0-46.0) % Plt Count (150-450) k/uL Chloride (98-107) mmol/L BUN (7-17) mg/dL Creatinine (0.52-1.04) mg/dL Glucose (74-99) mg/dL POC Glucose (mg/dL) 123 H (75-99) mg/dL Total Protein (6.3-8.2) g/dL Albumin (3.5-5.0) g/dL Crossmatch See Detail Assessment and Plan Plan: 1 acute non-ST elevated myocardial infarction. Patient is followed by cardiology with plan for heart catheterization tomorrow. Continue aspirin 81 mg daily, Lipitor 40 mg daily, Coreg 25 mg twice daily, Imdur/NTP. 2 severe iron deficiency anemia: With chronic anemia status post transfusion of a total 3 units packed RBCs. EGD once medically stable. 3 severe dyspnea and shortness of breath secondary to acute non-ST LA and severe anemia the same time try to treat underlying disease. 4 acute kidney injury and stage III chronic kidney disease: Nephrology consult appreciated. 5 rheumatoid arthritis: Has been seen Dr. Marlow. Still from her list of medication looks on prednisone only with no biological agent at this point. 6 chronic pain syndrome: Patient has been on MS Contin 15 mg twice a day along with [place] 10/325 g every 4 hours as needed. 7 hypothyroidism: Remain on Cytomel and Synthroid together. 8 diabetes mellitus type II: Patient has been on Prandin 1 mg in the morning and 2 mg at noontime. 9 history of CAD: Has been seen cardiology regular basis. 10 hypertension: Patient has been on hydralazine 50 mg 3 times a day along with Coreg 25 g twice a day. 11 fluid overload: Has been on furosemide 40 mg 5 days a week. 12 hyperlipidemia: Remain on statin. 13 chronic neuropathy: Mostly idiopathic peripheral neuropathy and diabetic neuropathy as well to continue Neurontin 100 mg 3 times a day. 14 GI prophylaxis: Patient will be on pantoprazole IV. Has been on Prilosec 20 mg twice a day as an outpatient. 15 DVT prophylaxis: Not on any anticoagulation but will keep patient on knee- high CHAUNCEY hose and Venodyne boots. CODE STATUS: Full code. Discharge plan: Home with A Impression and plan of care have been directed as dictated by the signing physician. Nadja Kaur nurse practitioner acting as scribe for signing physician.
[2016-12-06] MEDS: HYDROcodone/APAP 10-325MG 1 EACH TAB PO PRN (14:00)
[2016-12-06 16:48] LABS: Glucose,Whole Blood 215 mg/dL (75-99)
[2016-12-06] MEDS: SODIUM CHLORIDE 0.9% 1,000 ML IV SCH (17:36)
[2016-12-06 20:45] LABS: Glucose,Whole Blood 292 mg/dL (75-99)
[2016-12-06 21:05] LABS: Glucose,Whole Blood 298 mg/dL (75-99)
[2016-12-06] MEDS: ATORVASTATIN 40 MG TAB PO SCH (21:19)
[2016-12-06] MEDS: MAGNESIUM OXIDE 400 MG TAB PO SCH (21:19)
[2016-12-06] MEDS: FERROUS SULFATE 325 MG TAB PO SCH (21:19)
--- NOTE | 2016-12-06 22:28 | P.CONS ---
History of Present Illness - Reason for Consult Consult date: 12/06/16 - History of Present Illness Ms Neves is a pleasant WF, intially seen in consult at [facility] in late 2004, for anemia and leucopenia. These had been chronic , but were progressive at that time. She had a full w/u that was negative. These were felt to be due to the use of Methotrexate and Arava, that she was on for her longstanding rheumatoid arthritis. After stoppage of these, her counts did improve. She then presented again in 11/12 with progressive anemia. Her lab w/u was again negative. She underwent a bone marrow biopsy in 12/13, which showed just generalised marrow suppression. This was felt to be due to her RA flaring up, as she was off Methotrexate and Arava. She was started on Enbrel by her Kiln Setter, Dr Fenton, and her Hgb did improve along with her RA symptoms. She was last seen in 01/12 at [facility] The pt has been on various biologics since, most recently Cimzia. Her Hgb has fluctuated with her RA activity. Till 12/19, it was stable in the 9-10 range. Since early 04/20, it was noted to be in the 8-9 range. Repeat iron studies during this time showed no deficiency. Her Hg was down to 8.3 on 05/08/13. She was thus referred for hematology w/u. Additional w/u was ordered. this was negative for any deficiency, but did show high sed rate. Her Hgb improved again with initiation of steroids. Thus her anemia was felt to be due to inflammatory suppression, from her underlying autoimmune disease. She did not f/u in the office since 07/22. She has not had any Rheumatology f/u for several mths due to coverage issues with proposed treatments and side effects with others. She has thus continued on low dose prednisone with intermittent higher dose courses for flares. She was admitted with progressive weakness and BRICE. She is currently having a RA flare with polyarthralgia and skin rash. Hgb was down to 6.8. She improved appropriately with transfusion. She was then diagnosed with a NSTEMI. Consult was placed for further evaluation and recommendations. Her anemia is thus due to a combination of inflammatory marrow suppression from her RA, and now CKD. Review of Systems Constitutional: Reports fatigue, Reports weakness Eyes: denies blurred vision, denies pain Ears: deny: decreased hearing, ear discharge, earache, tinnitus Ears, nose, mouth and throat: Denies headache, Denies sore throat Cardiovascular: Reports chest pain, Reports shortness of breath Respiratory: Reports dyspnea Gastrointestinal: Denies abdominal pain, Denies diarrhea, Denies nausea, Denies vomiting Menstruation: Reports postmenopausal Musculoskeletal: Reports hot joints, Reports low back pain, Reports morning stiffness Musculoskeletal: left: elbow pain, elbow stiffness, elbow swelling, bilateral: hip pain, knee pain, knee stiffness Integumentary: Reports as per HPI, Reports rash (Reddish, partially exfoliating rash, generalized, which occurs in association with RA flares) Neurological: Reports weakness Psychiatric: Denies anxiety, Denies depression Endocrine: Denies fatigue, Denies weight change Hematologic/Lymphatic: Reports as per HPI Past Medical History Past Medical History: Hyperlipidemia, Renal Disease, Thyroid Disorder Additional Past Medical History / Comment(s): low vitamin d levels which caused renal deficiency, parathyroid overactive related to low vit d levels, chronic prednisone secondary to RA followed by Dr. Marlow, ANEMIA,COMPRESSION FX L1, PAST FALL. of lithiasis, Csection, gall bladder History of Any Multi-Drug Resistant Organisms: None Reported Past Surgical History: Orthopedic Surgery Additional Past Surgical History / Comment(s): right knee TKA 2, carpel tunnel , CYST REMOVED (NECK) AGE 6, 2 back surgery 2004 Past Anesthesia/Blood Transfusion Reactions: No Reported Reaction Past Psychological History: Anxiety Smoking Status: Never smoker Past Alcohol Use History: None Reported Past Drug Use History: None Reported - Past Family History Mother Additional Family Medical History / Comment(s): addisons disease Father Family Medical History: Hypertension Medications and Allergies Home Medications Medication Instructions Recorded Confirmed Type Omeprazole [PriLOSEC] 20 mg PO BID 02/20/14 12/03/16 History predniSONE 10 mg PO DAILY 02/20/14 12/03/16 History Cyanocobalamin [Vitamin B-12] 2,500 mcg PO DAILY 08/19/14 12/03/16 History Ergocalciferol [Vitamin D2 50,000 unit PO WE 08/19/14 12/03/16 History (DRISDOL)] Ferrous Sulfate [Iron (65 MG 325 mg PO HS 08/19/14 12/03/16 History Elemental)] Calcitriol 0.25 mcg PO SUTUFR 01/07/15 12/03/16 History Liothyronine Sodium [Cytomel] 5 mcg PO DAILY 01/07/15 12/03/16 History ALPRAZolam [Xanax] 0.25 mg PO BID PRN 09/02/16 12/03/16 History Carvedilol [Coreg] 25 mg PO BID 09/02/16 12/03/16 History Gabapentin [Neurontin] 100 mg PO TID 09/02/16 12/03/16 History Magnesium 200 mg PO HS 09/02/16 12/03/16 History Morphine Sulfate ER [Ms Contin] 15 mg PO BID 09/02/16 12/03/16 History Simvastatin [Zocor] 40 mg PO HS 09/02/16 12/03/16 History Repaglinide [Prandin] 1 mg PO DAILY 09/24/16 12/03/16 History Repaglinide [Prandin] 2 mg PO DAILY@1200 09/24/16 12/03/16 History HYDROcodone/APAP 10-325MG [[place] 1 tab PO Q4HR PRN 09/25/16 12/03/16 History 10-325] Furosemide [Lasix] 40 mg PO MOWEFR 12/03/16 12/03/16 History Sodium Bicarbonate Tab 650 mg PO DAILY 12/03/16 12/03/16 History hydrALAZINE HCL [Apresoline] 25 mg PO HS 12/03/16 12/03/16 History hydrALAZINE HCL [Apresoline] 50 mg PO TID 12/03/16 12/03/16 History Allergies Allergy/AdvReac Type Severity Reaction Status Date / Time codeine Allergy Rash/Hives Verified 12/03/16 07:41 Sulfa (Sulfonamide Allergy Rash/Hives Verified 12/03/16 07:41 Antibiotics) gold Allergy Unknown Uncoded 12/03/16 04:29 Physical Exam Vitals: Vital Signs Temp Pulse Pulse Resp BP BP BP 12/06/16 13:55 97.2 F L 76 18 122/61 12/06/16 11:52 80 18 137/72 12/06/16 11:28 97.5 F L 78 18 118/92 12/06/16 11:22 97.0 F L 82 18 146/70 12/06/16 11:12 97.5 F L 78 18 118/92 12/06/16 11:08 97.0 F L 86 18 103/56 12/06/16 08:18 97.3 F L 83 18 147/76 12/06/16 04:00 97.7 F 78 18 171/89 12/06/16 00:00 97.4 F L 76 18 148/78 12/05/16 20:00 97.5 F L 74 18 149/66 Pulse Ox 12/06/16 13:55 93 L 12/06/16 11:52 99 12/06/16 11:28 99 12/06/16 11:22 98 12/06/16 11:12 99 12/06/16 11:08 98 12/06/16 08:18 97 12/06/16 04:00 95 12/06/16 00:00 96 12/05/16 20:00 96 Intake and Output 12/06/16 12/06/16 12/06/16 06:59 14:59 22:59 Intake Total 310 Output Total 250 Balance -250 310 Intake: Blood Product 310 Rc As-3 Unit 310 [id number] Output: Urine 250 Other: Voiding Method Bedside Commode # Voids 1 Weight 76 kg - Constitutional General appearance: mild distress - EENT Eyes: EOMI, PERRLA ENT: hearing grossly normal, normal oropharynx - Neck Neck: no lymphadenopathy Thyroid: bilateral: normal size - Respiratory Respiratory: bilateral: CTA - Cardiovascular Rhythm: regular Heart sounds: normal: S1, S2 - Gastrointestinal General gastrointestinal: normal bowel sounds, soft - Integumentary Integumentary: rash (Radiation, mostly macular and confluent rash involving the face, upper body, as well as proximal lower extremity is in a fairly generalized manner. Rash is partially exfoliative) - Neurologic Neurologic: CNII-XII intact - Musculoskeletal Musculoskeletal: generalized weakness, strength equal bilaterally - Psychiatric Psychiatric: A&O x's 3 Results CBC & Chem 7: 12/06/16 05:50 12/06/16 05:50 Labs: Abnormal Lab Results - Last 24 Hours (Table) 12/05/16 12/05/16 12/05/16 Range/Units 16:47 20:38 22:36 RBC (3.80-5.40) m/uL Hgb (11.4-16.0) gm/dL Hct (34.0-46.0) % Plt Count (150-450) k/uL Chloride (98-107) mmol/L BUN (7-17) mg/dL Creatinine (0.52-1.04) mg/dL Glucose (74-99) mg/dL POC Glucose (mg/dL) 179 H 259 H 255 H (75-99) mg/dL Total Protein (6.3-8.2) g/dL Albumin (3.5-5.0) g/dL Crossmatch 12/06/16 12/06/16 12/06/16 Range/Units 05:50 05:50 06:01 RBC 2.86 L (3.80-5.40) m/uL Hgb 8.8 L (11.4-16.0) gm/dL Hct 27.5 L (34.0-46.0) % Plt Count 122 L (150-450) k/uL Chloride 108 H (98-107) mmol/L BUN 59 H (7-17) mg/dL Creatinine 1.71 H (0.52-1.04) mg/dL Glucose 114 H (74-99) mg/dL POC Glucose (mg/dL) 115 H (75-99) mg/dL Total Protein 4.7 L (6.3-8.2) g/dL Albumin 2.5 L (3.5-5.0) g/dL Crossmatch 12/06/16 12/06/16 Range/Units 09:15 11:41 RBC (3.80-5.40) m/uL Hgb (11.4-16.0) gm/dL Hct (34.0-46.0) % Plt Count (150-450) k/uL Chloride (98-107) mmol/L BUN (7-17) mg/dL Creatinine (0.52-1.04) mg/dL Glucose (74-99) mg/dL POC Glucose (mg/dL) 123 H (75-99) mg/dL Total Protein (6.3-8.2) g/dL Albumin (3.5-5.0) g/dL Crossmatch See Detail Comments: Echo report reviewed Chest x-ray: report reviewed Assessment and Plan (1) Anemia Narrative/Plan: Her anemia is due to a combination of inflammatory suppression from her RA, and now AOCKD. Her Hgb is usually in a safe range when her RA is quiescent ( 9- 10). There is no evidence of bleeding. Her ferritins are consistently high, with low TIBCs , c/w anemia of inflammation. Hemolysis is also unlikely, with appropriate increase with transfusion. Therefore the management for her would consist of supportive transfusions and RA control. From the Heme standpoint, there is no contraindication to her having cardiac procedures, anticoagulation or anti platelet therapy. Status: Acute (2) Rheumatoid arthritis Narrative/Plan: Her RA flares are the main reason for her anemia as noted. Unfortunately the patient has not been able to have definitive treatment for her RA now for several months due to coverage issues. Case was discussed with the rheumatology. She has failed some treatment modalities in the past and has had side effects with some, while she has coverage issues with others. Thus, at this time, are definite that treatment option other than her steroids, is not available. Status: Acute
[2016-12-07] MEDS: NITROGLYCERIN OINT 1 INCH/GM PACKET TOPICAL SCH ×2 (04:44→15:06)
[2016-12-07 06:01] LABS: Glucose,Whole Blood 137 mg/dL (75-99)
[2016-12-07] MEDS: LEVOTHYROXINE 25 MCG TAB PO SCH (06:59)
[2016-12-07] MEDS: CARVEDILOL 12.5 MG TAB PO SCH ×2 (06:59→17:15)
[2016-12-07] MEDS: PANTOPRAZOLE 40 MG TABLET PO SCH ×2 (06:59→17:15)
[2016-12-07] MEDS: SODIUM CHLORIDE 0.9% 1,000 ML IV SCH ×4 (07:04→17:16)
[2016-12-07 07:24] LABS: Basophils % (A) 0 %; CH 30.4; CHCM 32.6; Eosinophils # (A) 0.3 k/uL (0-0.7); Eosinophils % (A) 5 %; HCT 30.4 % (34.0-46.0); HDW 2.97; HGB 9.9 gm/dL (11.4-16.0); Luc # (Auto) 0.04; Luc % (Auto) 1; Lymphocytes # (A) 0.4 k/uL (1.0-4.8); Lymphocytes % (A) 8 %; MCH 30.6 pg (25.0-35.0); MCHC 32.5 g/dL (31.0-37.0); Mean Platelet Volume 7.9; Monocytes # (A) 0.3 k/uL (0-1.0); Monocytes % (A) 5 %; Neutrophils # (A) 4.4 k/uL (1.3-7.7); Neutrophils % (A) 81 %; RBC 3.23 m/uL (3.80-5.40); RDW 15.8 % (11.5-15.5); WBC 5.5 k/uL (3.8-10.6); WBC (Perox) 5.88
[2016-12-07 07:26] LABS: INR 1.1 (<1.1); Prothrombin Time 11.2 sec (9.0-12.0)
[2016-12-07 07:28] LABS: Calcium 8.2 mg/dL (8.4-10.2); Potassium 4.4 mmol/L (3.5-5.1)
[2016-12-07 08:05] LABS: Reticulocyte % 2.6 % (0.5-2.0)
[2016-12-07] MEDS: CYANOCOBALAMIN 500 MCG TAB PO SCH (08:27)
[2016-12-07] MEDS: GABAPENTIN 100 MG CAP PO SCH ×3 (08:27→21:09)
[2016-12-07] MEDS: ASPIRIN 81 MG CHEW PO SCH (08:27)
[2016-12-07] MEDS: hydrALAZINE HCL 50 MG TAB PO SCH ×3 (08:28→21:09)
[2016-12-07] MEDS: LIOTHYRONINE SODIUM 5 MCG TAB PO SCH (08:28)
[2016-12-07] MEDS: predniSONE 10 MG TAB PO SCH (08:28)
[2016-12-07] MEDS: MORPHINE SULFATE ER 15 MG TABLET PO SCH ×2 (08:44→21:08)
[2016-12-07 08:52] LABS: Glucose,Whole Blood 96 mg/dL (75-99)
[2016-12-07] MEDS ORDERED: SODIUM CHLORIDE 0.9% 1,000 ML in EMPTY BAG 1 BAG IV ONE (10:33)
[2016-12-07] MEDS ORDERED: NITROGLYCERIN SL TABS 0.4 MG TAB SUBLINGUAL PRN (10:33)
[2016-12-07] MEDS ORDERED: ALPRAZolam 0.5 MG TAB PO PRN (10:33)
[2016-12-07] MEDS ORDERED: ASPIRIN 325 MG TAB PO STA (10:33)
[2016-12-07] MEDS ORDERED: ALPRAZolam 0.25 MG TAB PO PRN (10:33)
[2016-12-07] MEDS ORDERED: ATORVASTATIN 80 MG TAB PO STA (10:33)
[2016-12-07] MEDS ORDERED: IV FLUID CONTINUATION 700 ML IV ONE (11:03)
[2016-12-07 11:10] LABS: Glucose,Whole Blood 107 mg/dL (75-99)
[2016-12-07] MEDS: REPAGLINIDE 1 MG TAB PO SCH ×2 (11:39→11:45)
[2016-12-07 12:09] LABS: Glucose,Whole Blood 128 mg/dL (75-99)
[2016-12-07] MEDS ORDERED: MIDAZOLAM 2 MG/2 ML VIAL ONE (13:22)
[2016-12-07] MEDS ORDERED: LIDOCAINE 2% INJ 20 MG/ML (20 ML MDV) ONE (13:22)
[2016-12-07] MEDS ORDERED: MIDAZOLAM 2 MG/2 ML VIAL IV ONE (13:28)
[2016-12-07] MEDS ORDERED: LIDOCAINE 2% INJ 20 MG/ML SQ ONE (13:30)
[2016-12-07] MEDS ORDERED: IV FLUID CONTINUATION 1,000 ML IV ONE (13:33)
[2016-12-07] MEDS ORDERED: RX INFO: IV CONTRAST WAS GIVEN 1 EACH MISC MISCELLANE PRN (13:48)
[2016-12-07] MEDS ORDERED: IODIXANOL 320 MG/ML 100 ML INTRAARTER ONE (13:59)
--- NOTE | 2016-12-07 14:03 | P.PN ---
Subjective 66-year-old female one of Dr. Lerner's patient with past medical history of rheumatoid arthritis hyperlipidemia chronic anemia and chronic kidney disease patient was known to have history of kidney stone and recurrent lower back pain secondary to compression. Patient was in the hospital last in 09/25/2016 for nausea vomiting and diarrhea was treated and did well. Repeat lab after her discharge came with hemoglobin of 8.8 and then up to 10 g. Patient apparently was doing well until 2:30 AM when she woke up having significant shortness of breath and walk to the bathroom found her sugar to be good at the time she ended up having to take Xanax because of mild anxiety as well but developed to have significant dizziness and chest discomfort midsternum radiating toward the left upper side of her chest. Then she woke up her family was giving some nitro and EMS was called patient brought to the emergency department at [facility] where was seen and evaluated surprisingly her troponin came back slightly elevated EKG didn't show any change but patient had significant anemia with hemoglobin running in the 6 g significant drop from last month. With above problem Patient was started on blood transfusion admitted to the hospital will be seen cardiology and general surgery for possible need for endoscopy. Hemoccult will be done as well patient remember having slight increase abdominal pain but no tarry stool or bright red blood per rectum lately. Surprisingly troponin came back slightly bit higher at this point in the cystic is up to be non-ST [place]. Seen Dr. Camacho general surgery and Dr. Ramírez cardiology at this point even patient will require some sort of intervention for endoscopy but with the new onset of [place] and elevated troponin this is need to be delayed for a few weeks in the meanwhile treat medically. Hemoglobin still tiny bit low we will add 1 unit of RBC today. 12/05: Echocardiogram reveals mild mitral regurgitation, mild tricuspid regurgitation, borderline concentric left hypertrophy, EF 55-60%, moderately dilated at 34-39, aortic valve trileaflet with mild thickening. Patient has been diagnosed with a non-ST elevated myocardial infarction and cardiology has recommended baby aspirin, Imdur statin and Coreg. She will require cardiac workup once stable from GI perspective.. 12/06: We have added in consult with nephrology for chronic kidney disease stage III and acute kidney injury with concern for need for heart catheterization. Patient did have chest pain last evening. Her B UN as 59 and creatinine 1.71. Plan is to hydrate at 75 mL per hour and continue for 12 hours after heart catheterization. Diuretics are on hold. Cardiology has ordered 1 unit of packed RBCs for hemoglobin of 8.8. 12/07:patient is scheduled for heart catheterization this afternoon. She has been seen in consultation by Dr. Guido for anemia secondary to anemia of inflammation. She denies any chest pain or shortness of breath. Objective - Vital Signs Vital signs: Vital Signs Temp 98.0 F 12/07/16 04:00 Pulse 78 12/07/16 04:00 Resp 18 12/07/16 04:00 BP 160/86 12/07/16 04:00 Pulse Ox 100 12/07/16 08:30 Intake & Output 12/06/16 12/07/16 12/07/16 18:59 06:59 18:59 Intake Total 310 1320 Output Total 400 Balance 310 920 Weight 71 kg Intake: IV 1200 Sodium Chloride 0.9% 1, 1200 000 ml @ 75 mls/hr IV . [id number] [facility] Rx#:[id number] Intake, IV Titration 0 Amount Sodium Chloride 0.9% 1, 0 000 ml @ 75 mls/hr IV . [id number] [facility] Rx#:[id number] Oral 120 Blood Product 310 Rc As-3 Unit 310 [id number] Output: Urine 400 Other: Voiding Method Bedside Commode - Exam General appearance: Present: cooperative, no acute distress. Absent: average body habitus, disheveled, mild distress, morbidly obese, obese, severe distress , thin - EENT Eyes: Present: abnormal pupil, normal appearance. Absent: anicteric sclerae, disc margins sharp, edentulous, EOMI, PERRLA, fundus normal, photophobia, dentition normal, poor dentition, ptosis, scleral icterus ENT: Present: normal oropharynx. Absent: hard of hearing, hearing grossly normal, NA/AT, other, pharyngeal erythema, thrush, tonsillar exudates, tonsillar swelling Ears: bilateral: normal - Neck Neck: Present: normal ROM. Absent: lymphadenopathy, other, rigidity, stridor, thyromegaly Carotids: bilateral: upstroke normal Thyroid: bilateral: normal size - Respiratory Respiratory: bilateral: CTA, diminished - Cardiovascular Rhythm: regular Heart sounds: normal: S1, S2 Abnormal Heart Sounds: Present: systolic murmur - Gastrointestinal General gastrointestinal: Present: distended, organomegaly, soft. Absent: absent bowel sounds, decreased bowel sounds, hepatomegaly, hyperactive bowel sounds, normal bowel sounds, rigid, scaphoid, splenomegaly, tenderness, umbilical hernia, ventral hernia - Integumentary Integumentary: Present: normal, pale, rash. Absent: calor, cellulitis, cyanotic , decreased turgor, flushed, jaundiced, normal turgor, ulcer - Neurologic Neurologic: Present: CNII-XII intact - Musculoskeletal Musculoskeletal: Present: gait normal, generalized weakness, strength equal bilaterally. Absent: right sided weakness, left sided weakness - Psychiatric Psychiatric: Present: A&O x's 3, appropriate affect - Labs CBC & Chem 7: 12/07/16 06:20 12/07/16 06:20 Labs: Abnormal Lab Results - Last 24 Hours (Table) 12/06/16 12/06/16 12/06/16 Range/Units 09:15 11:41 16:43 RBC (3.80-5.40) m/uL Hgb (11.4-16.0) gm/dL Hct (34.0-46.0) % RDW (11.5-15.5) % Plt Count (150-450) k/uL Lymphocytes # (1.0-4.8) k/uL Retic Count (0.5-2.0) % Chloride (98-107) mmol/L BUN (7-17) mg/dL Creatinine (0.52-1.04) mg/dL Glucose (74-99) mg/dL POC Glucose (mg/dL) 123 H 215 H (75-99) mg/dL Calcium (8.4-10.2) mg/dL Crossmatch See Detail 12/06/16 12/06/16 12/07/16 Range/Units 20:43 21:03 05:59 RBC (3.80-5.40) m/uL Hgb (11.4-16.0) gm/dL Hct (34.0-46.0) % RDW (11.5-15.5) % Plt Count (150-450) k/uL Lymphocytes # (1.0-4.8) k/uL Retic Count (0.5-2.0) % Chloride (98-107) mmol/L BUN (7-17) mg/dL Creatinine (0.52-1.04) mg/dL Glucose (74-99) mg/dL POC Glucose (mg/dL) 292 H 298 H 137 H (75-99) mg/dL Calcium (8.4-10.2) mg/dL Crossmatch 12/07/16 12/07/16 12/07/16 Range/Units 06:20 06:20 06:20 RBC 3.23 L (3.80-5.40) m/uL Hgb 9.9 L (11.4-16.0) gm/dL Hct 30.4 L (34.0-46.0) % RDW 15.8 H (11.5-15.5) % Plt Count 109 L (150-450) k/uL Lymphocytes # 0.4 L (1.0-4.8) k/uL Retic Count 2.6 H (0.5-2.0) % Chloride 109 H (98-107) mmol/L BUN 59 H (7-17) mg/dL Creatinine 1.59 H (0.52-1.04) mg/dL Glucose 137 H (74-99) mg/dL POC Glucose (mg/dL) (75-99) mg/dL Calcium 8.2 L (8.4-10.2) mg/dL Crossmatch Assessment and Plan Plan: 1 acute non-ST elevated myocardial infarction. Patient is followed by cardiology with plan for heart catheterization tomorrow. Continue aspirin 81 mg daily, Lipitor 40 mg daily, Coreg 25 mg twice daily, Imdur/NTP. 2 severe iron deficiency anemia: With chronic anemia status post transfusion of a total 3 units packed RBCs. EGD once medically stable. 3 severe dyspnea and shortness of breath secondary to acute non-ST [place] and severe anemia the same time try to treat underlying disease. 4 acute kidney injury and stage III chronic kidney disease: Nephrology consult appreciated. 5 rheumatoid arthritis: Has been seen Dr. Marlow. Sloan from her list of medication looks on prednisone only with no biological agent at this point. 6 chronic pain syndrome: Patient has been on MS Contin 15 mg twice a day along with [place] 10/325 g every 4 hours as needed. 7 hypothyroidism: Remain on Cytomel and Synthroid together. 8 diabetes mellitus type II: Patient has been on Prandin 1 mg in the morning and 2 mg at noontime. 9 history of CAD: Has been seen cardiology regular basis. 10 hypertension: Patient has been on hydralazine 50 mg 3 times a day along with Coreg 25 g twice a day. 11 fluid overload: Has been on furosemide 40 mg 5 days a week. 12 hyperlipidemia: Remain on statin. 13 chronic neuropathy: Mostly idiopathic peripheral neuropathy and diabetic neuropathy as well to continue Neurontin 100 mg 3 times a day. 14 GI prophylaxis: Patient will be on pantoprazole IV. Has been on Prilosec 20 mg twice a day as an outpatient. 15 DVT prophylaxis: Not on any anticoagulation but will keep patient on knee- high CHAUNCEY hose and Venodyne boots. CODE STATUS: Full code. Discharge plan: Home with VNA Impression and plan of care have been directed as dictated by the signing physician. Nadja Kaur nurse practitioner acting as scribe for signing physician.
--- NOTE | 2016-12-07 14:25 | CC ---
DATE OF SERVICE: INDICATION: Unstable angina. PROCEDURE NOTE: After obtaining informed consent, left heart catheterization and coronary angiogram are performed via the right femoral artery using standard Jasbir catheters. Patient tolerated the procedure well without any obvious immediate complications. A femoral angiogram was performed and Angio-Seal was deployed for hemostasis. The patient has renal insufficiency and understands the risk of contrast-induced nephropathy. She has been evaluated by supervising airplane pilot prior. She has anemia and was evaluated by respite worker prior to this. Total sedation time is 15 minutes. FINDINGS: 1. HEMODYNAMICS: Left ventricular end-diastolic pressure is 14 mm. There is no significant gradient across the aortic valve. 2. LEFT VENTRICULOGRAM: Left ventriculogram was not performed. 3. ANGIOGRAPHIC DATA: LEFT MAIN CORONARY ARTERY: Left main coronary artery appears calcified with a mild atherosclerotic plaque in left main but I do not see any focal hemodynamically significant lesions. It divides into left anterior descending coronary artery and circumflex coronary artery. The vessels are heavily calcified. There is a mild diffuse atherosclerotic plaque involving the mid LAD but no focal hemodynamically significant lesions are noted on this study. Circumflex coronary artery appears calcified and there is a mild atherosclerotic on the right coronary artery is a large dominant vessel that shows a mild to moderate atherosclerotic plaque in its proximal part. CONCLUSION: Mild nonobstructive disease involving all the three coronary arteries. PLAN: Patient does not need angioplasty. She will be hydrated and treated with optimal medical therapy.
[2016-12-07 16:27] LABS: Glucose,Whole Blood 212 mg/dL (75-99)
--- NOTE | 2016-12-07 16:36 | PN ---
Patient is seen for follow-up for chronic kidney disease and acute kidney injury. Her creatinine is down to 1.59 from 1.7 mg/dL. Patient is scheduled for cardiac catheterization today. She is maintained on IV fluids. On examination, blood pressure is 133/69, heart rate 81 per minute. The patient is afebrile. Examination of the heart S1 and S2. Examination of the lungs: Bilateral breath sounds are heard. Abdomen is soft, nontender, obese. Examination of lower extremities shows trace edema bilaterally with discoloration/rash noted all over the body, which is chronic. Labs show sodium 143, potassium 4.4, chloride 109, BUN 59, serum creatinine 1.59. Hemoglobin 9.9 g/dL. ASSESSMENT: 1. Acute kidney injury, possibly prerenal, currently improved, mainly associated with significant anemia. 2. Chronic kidney disease stage III secondary to diabetic kidney disease with baseline creatinine about 1.3 to 1.5 mg/dL. 3. [id number] myocardial infarction scheduled for cardiac catheterization today. PLAN: Repeat labs in the a.m. avoid any other nephrotoxic agents.
[2016-12-07] MEDS: FERROUS SULFATE 325 MG TAB PO SCH (21:08)
[2016-12-07] MEDS: MAGNESIUM OXIDE 400 MG TAB PO SCH (21:08)
[2016-12-07 21:26] LABS: Glucose,Whole Blood 213 mg/dL (75-99)
[2016-12-08] MEDS: SODIUM CHLORIDE 0.9% 1,000 ML IV SCH ×3 (00:06→16:18)
[2016-12-08 03:35] VITALS: RESP 18
[2016-12-08 06:26] LABS: Glucose,Whole Blood 118 mg/dL (75-99)
[2016-12-08] MEDS: CARVEDILOL 12.5 MG TAB PO SCH ×2 (06:34→17:46)
[2016-12-08] MEDS: REPAGLINIDE 1 MG TAB PO SCH ×2 (06:35→12:26)
[2016-12-08] MEDS: PANTOPRAZOLE 40 MG TABLET PO SCH ×2 (06:35→17:46)
[2016-12-08] MEDS: LEVOTHYROXINE 25 MCG TAB PO SCH (06:35)
[2016-12-08 06:41] LABS: Basophils % (A) 0 %; CH 30.4; CHCM 32.3; Eosinophils # (A) 0.2 k/uL (0-0.7); Eosinophils % (A) 3 %; HCT 29.2 % (34.0-46.0); HDW 2.95; HGB 9.4 gm/dL (11.4-16.0); Luc # (Auto) 0.08; Luc % (Auto) 1; Lymphocytes # (A) 0.4 k/uL (1.0-4.8); Lymphocytes % (A) 6 %; MCH 30.5 pg (25.0-35.0); MCHC 32.3 g/dL (31.0-37.0); MCV 94.6 fL (80.0-100.0); Mean Platelet Volume 7.5; Monocytes # (A) 0.3 k/uL (0-1.0); Monocytes % (A) 4 %; Neutrophils # (A) 5.6 k/uL (1.3-7.7); Neutrophils % (A) 85 %; RBC 3.09 m/uL (3.80-5.40); RDW 15.3 % (11.5-15.5); WBC 6.6 k/uL (3.8-10.6)
[2016-12-08 06:50] LABS: Calcium 8.1 mg/dL (8.4-10.2); Potassium 4.6 mmol/L (3.5-5.1)
[2016-12-08] MEDS: FUROSEMIDE 40 MG TAB PO SCH (08:01)
[2016-12-08] MEDS: predniSONE 10 MG TAB PO SCH (08:01)
[2016-12-08] MEDS: CYANOCOBALAMIN 500 MCG TAB PO SCH (08:01)
[2016-12-08] MEDS: GABAPENTIN 100 MG CAP PO SCH ×3 (08:01→20:34)
[2016-12-08] MEDS: ISOSORBIDE MONONITRATE ER 30 MG TAB.ER.24H PO SCH (08:01)
[2016-12-08] MEDS: hydrALAZINE HCL 50 MG TAB PO SCH ×3 (08:01→20:35)
[2016-12-08] MEDS: LIOTHYRONINE SODIUM 5 MCG TAB PO SCH (08:02)
[2016-12-08] MEDS: ASPIRIN 81 MG CHEW PO SCH (08:02)
[2016-12-08] MEDS: MORPHINE SULFATE ER 15 MG TABLET PO SCH ×2 (08:07→20:33)
[2016-12-08] MEDS: HYDROcodone/APAP 10-325MG 1 EACH TAB PO PRN ×2 (10:35→23:03)
[2016-12-08 11:56] LABS: Glucose,Whole Blood 119 mg/dL (75-99)
[2016-12-08] MEDS: CALCITRIOL 0.25 MCG CAP PO SCH (12:26)
[2016-12-08 13:38] VITALS: BMI 29.5
--- NOTE | 2016-12-08 14:53 | P.PN ---
Subjective 66-year-old female one of Dr. Lerner's patient with past medical history of rheumatoid arthritis hyperlipidemia chronic anemia and chronic kidney disease patient was known to have history of kidney stone and recurrent lower back pain secondary to compression. Patient was in the hospital last in 09/25/2016 for nausea vomiting and diarrhea was treated and did well. Repeat lab after her discharge came with hemoglobin of 8.8 and then up to 10 g. Patient apparently was doing well until 2:30 AM when she woke up having significant shortness of breath and walk to the bathroom found her sugar to be good at the time she ended up having to take Xanax because of mild anxiety as well but developed to have significant dizziness and chest discomfort midsternum radiating toward the left upper side of her chest. Then she woke up her family was giving some nitro and EMS was called patient brought to the emergency department at [facility] where was seen and evaluated surprisingly her troponin came back slightly elevated EKG didn't show any change but patient had significant anemia with hemoglobin running in the 6 g significant drop from last month. With above problem Patient was started on blood transfusion admitted to the hospital will be seen cardiology and general surgery for possible need for endoscopy. Hemoccult will be done as well patient remember having slight increase abdominal pain but no tarry stool or bright red blood per rectum lately. Surprisingly troponin came back slightly bit higher at this point in the cystic is up to be non-ST [place]. Seen Dr. Camacho general surgery and Dr. Ramírez cardiology at this point even patient will require some sort of intervention for endoscopy but with the new onset of [place] and elevated troponin this is need to be delayed for a few weeks in the meanwhile treat medically. Hemoglobin still tiny bit low we will add 1 unit of RBC today. 12/05: Echocardiogram reveals mild mitral regurgitation, mild tricuspid regurgitation, borderline concentric left hypertrophy, EF 55-60%, moderately dilated at 34-39, aortic valve trileaflet with mild thickening. Patient has been diagnosed with a non-ST elevated myocardial infarction and cardiology has recommended baby aspirin, Imdur statin and Coreg. She will require cardiac workup once stable from GI perspective.. 12/06: We have added in consult with nephrology for chronic kidney disease stage III and acute kidney injury with concern for need for heart catheterization. Patient did have chest pain last evening. Her B UN as 59 and creatinine 1.71. Plan is to hydrate at 75 mL per hour and continue for 12 hours after heart catheterization. Diuretics are on hold. Cardiology has ordered 1 unit of packed RBCs for hemoglobin of 8.8. 12/07:patient is scheduled for heart catheterization this afternoon. She has been seen in consultation by Dr. Guido for anemia secondary to anemia of inflammation. She denies any chest pain or shortness of breath. 12/08: Heart catheterization revealed mild nonobstructive disease with no need for intervention. Patient states that her legs feel weak. No problems with her groin site. Case management has set up VNA. Plan to monitor patient overnight and discharge tomorrow. Repeat BUN 55 and creatinine 1.5 with hemoglobin 9.4. Objective - Vital Signs Vital signs: Vital Signs Temp 97 F L 12/08/16 08:00 Pulse 80 12/08/16 08:00 Resp 18 12/08/16 08:00 BP 121/57 12/08/16 08:00 Pulse Ox 96 12/08/16 08:00 Intake & Output 12/07/16 12/08/16 12/08/16 18:59 06:59 18:59 Intake Total 650 600 250 Output Total 400 Balance 650 600 -150 Weight 77.9 kg Intake: IV 650 600 150 Sodium Chloride 0.9% 1, 600 600 150 000 ml @ 75 mls/hr IV . [id number] [facility] Rx#:[id number] Oral 100 Output: Urine 400 Other: Voiding Method Bedside Commode Bedside Commode # Voids 1 1 - Exam General appearance: Present: cooperative, no acute distress. Absent: average body habitus, disheveled, mild distress, morbidly obese, obese, severe distress , thin - EENT Eyes: Present: abnormal pupil, normal appearance. Absent: anicteric sclerae, disc margins sharp, edentulous, EOMI, PERRLA, fundus normal, photophobia, dentition normal, poor dentition, ptosis, scleral icterus ENT: Present: normal oropharynx. Absent: hard of hearing, hearing grossly normal, NA/AT, other, pharyngeal erythema, thrush, tonsillar exudates, tonsillar swelling Ears: bilateral: normal - Neck Neck: Present: normal ROM. Absent: lymphadenopathy, other, rigidity, stridor, thyromegaly Carotids: bilateral: upstroke normal Thyroid: bilateral: normal size - Respiratory Respiratory: bilateral: CTA, diminished - Cardiovascular Rhythm: regular Heart sounds: normal: S1, S2 Abnormal Heart Sounds: Present: systolic murmur - Gastrointestinal General gastrointestinal: Present: distended, organomegaly, soft. Absent: absent bowel sounds, decreased bowel sounds, hepatomegaly, hyperactive bowel sounds, normal bowel sounds, rigid, scaphoid, splenomegaly, tenderness, umbilical hernia, ventral hernia - Integumentary Integumentary: Present: normal, pale, rash. Absent: calor, cellulitis, cyanotic , decreased turgor, flushed, jaundiced, normal turgor, ulcer - Neurologic Neurologic: Present: CNII-XII intact - Musculoskeletal Musculoskeletal: Present: gait normal, generalized weakness, strength equal bilaterally. Absent: right sided weakness, left sided weakness - Psychiatric Psychiatric: Present: A&O x's 3, appropriate affect - Labs CBC & Chem 7: 12/08/16 06:06 12/08/16 06:06 Labs: Abnormal Lab Results - Last 24 Hours (Table) 12/07/16 12/07/16 12/07/16 Range/Units 06:20 11:07 11:49 RBC (3.80-5.40) m/uL Hgb (11.4-16.0) gm/dL Hct (34.0-46.0) % Plt Count (150-450) k/uL Lymphocytes # (1.0-4.8) k/uL Haptoglobin 203.0 H (31.2-198.0) mg/dL Chloride (98-107) mmol/L BUN (7-17) mg/dL Creatinine (0.52-1.04) mg/dL Glucose (74-99) mg/dL POC Glucose (mg/dL) 107 H 128 H (75-99) mg/dL Calcium (8.4-10.2) mg/dL 12/07/16 12/07/16 12/08/16 Range/Units 16:22 21:07 06:06 RBC 3.09 L (3.80-5.40) m/uL Hgb 9.4 L (11.4-16.0) gm/dL Hct 29.2 L (34.0-46.0) % Plt Count 104 L (150-450) k/uL Lymphocytes # 0.4 L (1.0-4.8) k/uL Haptoglobin (31.2-198.0) mg/dL Chloride (98-107) mmol/L BUN (7-17) mg/dL Creatinine (0.52-1.04) mg/dL Glucose (74-99) mg/dL POC Glucose (mg/dL) 212 H 213 H (75-99) mg/dL Calcium (8.4-10.2) mg/dL 12/08/16 12/08/16 Range/Units 06:06 06:11 RBC (3.80-5.40) m/uL Hgb (11.4-16.0) gm/dL Hct (34.0-46.0) % Plt Count (150-450) k/uL Lymphocytes # (1.0-4.8) k/uL Haptoglobin (31.2-198.0) mg/dL Chloride 112 H (98-107) mmol/L BUN 55 H (7-17) mg/dL Creatinine 1.50 H (0.52-1.04) mg/dL Glucose 114 H (74-99) mg/dL POC Glucose (mg/dL) 118 H (75-99) mg/dL Calcium 8.1 L (8.4-10.2) mg/dL Assessment and Plan Plan: 1 acute non-ST elevated myocardial infarction. Patient is followed by cardiology status post heart catheterization. Continue aspirin 81 mg daily, Lipitor 40 mg daily, Coreg 25 mg twice daily, Imdur. 2 severe iron deficiency anemia: With chronic anemia status post transfusion of a total 3 units packed RBCs. EGD once medically stable. 3 severe dyspnea and shortness of breath secondary to acute non-ST [place] and severe anemia the same time try to treat underlying disease. 4 acute kidney injury and stage III chronic kidney disease: Nephrology consult appreciated. 5 rheumatoid arthritis: Has been seen Dr. Marlow. Still from her list of medication looks on prednisone only with no biological agent at this point. 6 chronic pain syndrome: Patient has been on MS Contin 15 mg twice a day along with [place] 10/325 g every 4 hours as needed. 7 hypothyroidism: Remain on Cytomel and Synthroid together. 8 diabetes mellitus type II: Patient has been on Prandin 1 mg in the morning and 2 mg at noontime. 9 history of CAD: Has been seen cardiology regular basis. 10 hypertension: Patient has been on hydralazine 50 mg 3 times a day along with Coreg 25 g twice a day. 11 fluid overload: Has been on furosemide 40 mg 5 days a week. 12 hyperlipidemia: Remain on statin. 13 chronic neuropathy: Mostly idiopathic peripheral neuropathy and diabetic neuropathy as well to continue Neurontin 100 mg 3 times a day. 14 GI prophylaxis: Patient will be on pantoprazole IV. Has been on Prilosec 20 mg twice a day as an outpatient. 15 DVT prophylaxis: Not on any anticoagulation but will keep patient on knee- high CHAUNCEY hose and Venodyne boots. CODE STATUS: Full code. Discharge plan: Home with VNA on Sunday Impression and plan of care have been directed as dictated by the signing physician. Nadja Kaur nurse practitioner acting as scribe for signing physician.
--- NOTE | 2016-12-08 15:13 | P.PN ---
Subjective This is a pleasant 66-year-old female with a known history of chronic anemia, prior GI bleed, rheumatoid arthritis, hypertension, hyperlipidemia, chronic kidney disease. Presented to the hospital with symptoms of chest discomfort with associated shortness of breath. She was initially seen in consultation by Dr. Ramírez. Initial EKG on presentation here did show some ST depression in the anterior leads. Hemoglobin on admission was 6.8 patient did receive blood transfusion and her hemoglobin this morning was 9.4. Her troponins did come back to be positive at 0.061, 1.5, 3.7 and 5.8, suggesting non-ST elevation [place]. Patient underwent cardiac catheterization by Dr. Carney yesterday. Cardiac catheterization showed mild nonobstructive triple vessel disease and optimal medical management was recommended. Upon examination this morning, patient is feeling fairly well. Objective - Vital Signs Vital signs: Vital Signs Temp 97.6 F 12/08/16 11:52 Pulse 79 12/08/16 11:52 Resp 18 12/08/16 11:52 BP 113/53 12/08/16 11:52 Pulse Ox 95 12/08/16 11:52 Intake & Output 12/07/16 12/08/16 12/08/16 18:59 06:59 18:59 Intake Total 650 600 250 Output Total 400 Balance 650 600 -150 Weight 77.9 kg 77.9 kg Intake: IV 650 600 150 Sodium Chloride 0.9% 1, 600 600 150 000 ml @ 75 mls/hr IV . [id number] [facility] Rx#:[id number] Oral 100 Output: Urine 400 Other: Voiding Method Bedside Commode Bedside Commode # Voids 1 1 - Exam PHYSICAL EXAMINATION: HEENT: Head is atraumatic, normocephalic. Pupils equal, round. Neck is supple. There is no elevated jugular venous pressure. HEART EXAMINATION: Heart sounds regular, S1 and S2 normal. No murmur or gallop heard. CHEST EXAMINATION: Lungs are clear to auscultation and precussion. No chest wall tenderness is noted on palpation or with deep breathing. ABDOMEN: Soft, nontender. Bowel sounds are heard. No organomegaly noted. EXTREMITIES: 2+ peripheral pulses with no evidence of peripheral edema and no calf tenderness noted. NEUROLOGIC patient is awake, alert and oriented x3. . - Labs CBC & Chem 7: 12/08/16 06:06 12/08/16 06:06 Labs: Abnormal Lab Results - Last 24 Hours (Table) 12/07/16 12/07/16 12/07/16 Range/Units 06:20 16:22 21:07 RBC (3.80-5.40) m/uL Hgb (11.4-16.0) gm/dL Hct (34.0-46.0) % Plt Count (150-450) k/uL Lymphocytes # (1.0-4.8) k/uL Haptoglobin 203.0 H (31.2-198.0) mg/dL Chloride (98-107) mmol/L BUN (7-17) mg/dL Creatinine (0.52-1.04) mg/dL Glucose (74-99) mg/dL POC Glucose (mg/dL) 212 H 213 H (75-99) mg/dL Calcium (8.4-10.2) mg/dL 12/08/16 12/08/16 12/08/16 Range/Units 06:06 06:06 06:11 RBC 3.09 L (3.80-5.40) m/uL Hgb 9.4 L (11.4-16.0) gm/dL Hct 29.2 L (34.0-46.0) % Plt Count 104 L (150-450) k/uL Lymphocytes # 0.4 L (1.0-4.8) k/uL Haptoglobin (31.2-198.0) mg/dL Chloride 112 H (98-107) mmol/L BUN 55 H (7-17) mg/dL Creatinine 1.50 H (0.52-1.04) mg/dL Glucose 114 H (74-99) mg/dL POC Glucose (mg/dL) 118 H (75-99) mg/dL Calcium 8.1 L (8.4-10.2) mg/dL 12/08/16 Range/Units 11:45 RBC (3.80-5.40) m/uL Hgb (11.4-16.0) gm/dL Hct (34.0-46.0) % Plt Count (150-450) k/uL Lymphocytes # (1.0-4.8) k/uL Haptoglobin (31.2-198.0) mg/dL Chloride (98-107) mmol/L BUN (7-17) mg/dL Creatinine (0.52-1.04) mg/dL Glucose (74-99) mg/dL POC Glucose (mg/dL) 119 H (75-99) mg/dL Calcium (8.4-10.2) mg/dL Assessment and Plan Plan: #1 non-ST elevated myocardial infarction, status post cardiac catheterization showing mild nonobstructive triple vessel disease #2 anemia #3 kidney disease #4 rheumatoid arthritis #5 diabetes #6 hypertension From cardiology perspective, we will continue optimal medical management. On discharge patient be scheduled to follow-up in the office with Dr. Ramírez. The above dictated assessment and findings were discussed with signing physician. The impression and plan of care have been directed as dictated. Yuly Ayala, Nurse Practitioner, acting as scribe for signing physician.
[2016-12-08 16:39] LABS: Glucose,Whole Blood 215 mg/dL (75-99)
--- NOTE | 2016-12-08 18:14 | PN ---
Patient is seen for followup for chronic kidney disease and acute kidney injury. Patient had a cardiac catheterization yesterday which showed mild non-obstructive disease involving 3 coronary arteries. She will be medically managed. Serum creatinine is stable at about 1.5 mg/dL, which is down from 1.7 two days ago. On examination, patient is comfortable. Blood pressure 119/66, heart rate 74 per minute. She is afebrile. EXAMINATION OF THE HEART: S1 and S2. EXAMINATION OF THE LUNGS: Bilateral breath sounds are heard. ABDOMEN: Soft, nontender, obese. Examination of lower extremities shows trace edema bilaterally. 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 Labs show sodium 145, potassium 4.6, BUN 55, serum creatinine 1.5. Hemoglobin 9.4 g/dL. ASSESSMENT: 1. Chronic kidney disease, NKF stage III. Renal function close to baseline. Status post IV dye for cardiac catheterization, currently stable. 2. Chest pain, status post cardiac catheterization with minimal disease with plans for medical management. 3. Hypertension, currently stable. 4. Chronic kidney disease bone mineral disorder, maintained on Rocaltrol. PLAN: Hep-Lock IV fluids. Repeat labs in a.m. Maintain followup as outpatient for CKD.
[2016-12-08] MEDS: FERROUS SULFATE 325 MG TAB PO SCH (20:34)
[2016-12-08] MEDS: MAGNESIUM OXIDE 400 MG TAB PO SCH (20:34)
[2016-12-08 20:44] LABS: Glucose,Whole Blood 263 mg/dL (75-99)
[2016-12-08] MEDS ORDERED: ATORVASTATIN 40 MG TAB PO SCH (21:00)
[2016-12-09] MEDS: SODIUM CHLORIDE 0.9% 1,000 ML IV SCH (06:18)
[2016-12-09] MEDS: REPAGLINIDE 1 MG TAB PO SCH ×2 (06:18→11:49)
[2016-12-09] MEDS: CARVEDILOL 12.5 MG TAB PO SCH (06:19)
[2016-12-09] MEDS: LEVOTHYROXINE 25 MCG TAB PO SCH (06:19)
[2016-12-09] MEDS: PANTOPRAZOLE 40 MG TABLET PO SCH (06:19)
[2016-12-09 06:28] LABS: Glucose,Whole Blood 137 mg/dL (75-99)
[2016-12-09 06:51] LABS: Basophils % (A) 0 %; CH 30.1; CHCM 31.3; Eosinophils # (A) 0.1 k/uL (0-0.7); Eosinophils % (A) 3 %; HCT 28.4 % (34.0-46.0); HGB 8.8 gm/dL (11.4-16.0); Hypochromasia Slight; Luc # (Auto) 0.06; Luc % (Auto) 1; Lymphocytes # (A) 0.4 k/uL (1.0-4.8); Lymphocytes % (A) 8 %; MCH 30.2 pg (25.0-35.0); MCHC 31.2 g/dL (31.0-37.0); MCV 96.9 fL (80.0-100.0); Mean Platelet Volume 8.4; Monocytes # (A) 0.3 k/uL (0-1.0); Monocytes % (A) 6 %; Neutrophils # (A) 4.4 k/uL (1.3-7.7); Neutrophils % (A) 82 %; RBC 2.93 m/uL (3.80-5.40); WBC 5.4 k/uL (3.8-10.6); WBC (Perox) 5.86
[2016-12-09 07:16] LABS: Calcium 8.1 mg/dL (8.4-10.2); Potassium 4.7 mmol/L (3.5-5.1)
[2016-12-09 08:40] VITALS: TEMP 97.1
[2016-12-09] MEDS: GABAPENTIN 100 MG CAP PO SCH (08:43)
[2016-12-09] MEDS: hydrALAZINE HCL 50 MG TAB PO SCH (08:43)
[2016-12-09] MEDS: ASPIRIN 81 MG CHEW PO SCH (08:43)
[2016-12-09] MEDS: CYANOCOBALAMIN 500 MCG TAB PO SCH (08:43)
[2016-12-09] MEDS: ISOSORBIDE MONONITRATE ER 30 MG TAB.ER.24H PO SCH (08:44)
[2016-12-09] MEDS: predniSONE 10 MG TAB PO SCH (08:44)
[2016-12-09] MEDS: LIOTHYRONINE SODIUM 5 MCG TAB PO SCH (08:44)
[2016-12-09] MEDS: MORPHINE SULFATE ER 15 MG TABLET PO SCH (08:47)
--- NOTE | 2016-12-09 09:42 | P.DS ---
Providers Date of admission: 12/03/16 08:05 Expected date of discharge: 12/09/16 Attending physician: Delvis Lewis Consults: 12/03/16 10:53 Consult Physician Routine Consulting Provider: Compa Ramírez Consult Reason/Comments: CP, elevated Troponin. Do you want consulting provider notified?: Yes 12/03/16 10:54 Consult Physician Routine Consulting Provider: Pedro Camacho Consult Reason/Comments: GI Bleed. Do you want consulting provider notified?: Yes 12/06/16 08:31 Consult Physician Stat Consulting Provider: Taj Guido Consult Reason/Comments: anemia Do you want consulting provider notified?: Yes 12/06/16 10:29 Consult Physician Routine Consulting Provider: Itz Rogers Consult Reason/Comments: CKD, possible heart cath tomorrow Do you want consulting provider notified?: Yes Primary care physician: Fay Lerner [place] [facility] Course: 66-year-old female one of Dr. Lerner's patient with past medical history of rheumatoid arthritis hyperlipidemia chronic anemia and chronic kidney disease patient was known to have history of kidney stone and recurrent lower back pain secondary to compression. Patient was in the hospital last in 09/25/2016 for nausea vomiting and diarrhea was treated and did well. Repeat lab after her discharge came with hemoglobin of 8.8 and then up to 10 g. Patient apparently was doing well until 2:30 AM when she woke up having significant shortness of breath and walk to the bathroom found her sugar to be good at the time she ended up having to take Xanax because of mild anxiety as well but developed to have significant dizziness and chest discomfort midsternum radiating toward the left upper side of her chest. Then she woke up her family was giving some nitro and EMS was called patient brought to the emergency department at [facility] where was seen and evaluated surprisingly her troponin came back slightly elevated EKG didn't show any change but patient had significant anemia with hemoglobin running in the 6 g significant drop from last month. With above problem Patient was started on blood transfusion admitted to the hospital will be seen cardiology and general surgery for possible need for endoscopy. Hemoccult will be done as well patient remember having slight increase abdominal pain but no tarry stool or bright red blood per rectum lately. Surprisingly troponin came back slightly bit higher at this point in the cystic is up to be non-ST HI. Seen Dr. Camacho general surgery and Dr. Ramírez cardiology at this point even patient will require some sort of intervention for endoscopy but with the new onset of HI and elevated troponin this is need to be delayed for a few weeks in the meanwhile treat medically. Hemoglobin still tiny bit low we will add 1 unit of RBC today. 12/05: Echocardiogram reveals mild mitral regurgitation, mild tricuspid regurgitation, borderline concentric left hypertrophy, EF 55-60%, moderately dilated at 34-39, aortic valve trileaflet with mild thickening. Patient has been diagnosed with a non-ST elevated myocardial infarction and cardiology has recommended baby aspirin, Imdur statin and Coreg. She will require cardiac workup once stable from GI perspective.. 12/06: We have added in consult with nephrology for chronic kidney disease stage III and acute kidney injury with concern for need for heart catheterization. Patient did have chest pain last evening. Her B UN as 59 and creatinine 1.71. Plan is to hydrate at 75 mL per hour and continue for 12 hours after heart catheterization. Diuretics are on hold. Cardiology has ordered 1 unit of packed RBCs for hemoglobin of 8.8. 12/07:patient is scheduled for heart catheterization this afternoon. She has been seen in consultation by Dr. Guido for anemia secondary to anemia of inflammation. She denies any chest pain or shortness of breath. 12/08: Heart catheterization revealed mild nonobstructive disease with no need for intervention. Patient states that her legs feel weak. No problems with her groin site. Case management has set up VNA. Plan to monitor patient overnight and discharge tomorrow. Repeat BUN 55 and creatinine 1.5 with hemoglobin 9.4. 12/09: Patient denies any chest pain or shortness of breath. BUS 53 and creatinine 1.47. Hemoglobin 8.8 She'll be discharged home today in stable condition. Discharge diagnoses: 1 acute non-ST elevated myocardial infarction. 2 severe iron deficiency anemia: With chronic anemia of inflammation status post transfusion of a total 3 units packed RBCs. EGD once medically stable. 3 severe dyspnea and shortness of breath secondary to acute non-ST HI and severe anemia the same time 4 acute kidney injury and stage III chronic kidney disease 5 rheumatoid arthritis: Has been seen Dr. Marlow. Still from her list of medication looks on prednisone only with no biological agent at this point. 6 chronic pain syndrome 7 hypothyroidism 8 diabetes mellitus type II 9 history of CAD 10 hypertension 11 fluid overload 12 hyperlipidemia 13 chronic neuropathy: Mostly idiopathic peripheral neuropathy and diabetic neuropathy Discharge plan: Home with VNA on Sunday Impression and plan of care have been directed as dictated by the signing physician. Nadja Kaur nurse practitioner acting as scribe for signing physician. Patient Condition at Discharge: Good Plan - Discharge Summary New Discharge Prescriptions: New Aspirin 81 mg PO DAILY Atorvastatin [Lipitor] 40 mg PO HS #30 tab Isosorbide Mononitrate ER [Imdur] 30 mg PO DAILY #30 tab Nitroglycerin Sl Tabs [Nitrostat] 0.4 mg SUBLINGUAL Q5M PRN #25 tab PRN Reason: Chest Pain Continue predniSONE 10 mg PO DAILY Omeprazole [PriLOSEC] 20 mg PO BID Ferrous Sulfate [Iron (65 MG Elemental)] 325 mg PO HS Cyanocobalamin [Vitamin B-12] 2,500 mcg PO DAILY Ergocalciferol [Vitamin D2 (DRISDOL)] 50,000 unit PO WE Ondansetron Odt [Zofran ODT] 4 mg PO Q8HR PRN #15 tab PRN Reason: Nausea Liothyronine Sodium [Cytomel] 5 mcg PO DAILY Calcitriol 0.25 mcg PO SUTUFR Levothyroxine Sodium [Synthroid] 25 mcg PO DAILY@0630 tab Morphine Sulfate ER [Ms Contin] 15 mg PO BID Gabapentin [Neurontin] 100 mg PO TID Carvedilol [Coreg] 25 mg PO BID ALPRAZolam [Xanax] 0.25 mg PO BID PRN PRN Reason: Anxiety Magnesium 200 mg PO HS Repaglinide [Prandin] 1 mg PO DAILY Repaglinide [Prandin] 2 mg PO DAILY@1200 HYDROcodone/APAP 10-325MG [[place] 10-325] 1 tab PO Q4HR PRN PRN Reason: Moderate Pain Furosemide [Lasix] 40 mg PO MOWEFR hydrALAZINE HCL [Apresoline] 50 mg PO TID Discontinued Simvastatin [Zocor] 40 mg PO HS hydrALAZINE HCL [Apresoline] 25 mg PO HS Sodium Bicarbonate Tab 650 mg PO DAILY Discharge Medication List Omeprazole [PriLOSEC] 20 mg PO BID 02/20/14 [History] predniSONE 10 mg PO DAILY 02/20/14 [History] Cyanocobalamin [Vitamin B-12] 2,500 mcg PO DAILY 08/19/14 [History] Ergocalciferol [Vitamin D2 (DRISDOL)] 50,000 unit PO WE 08/19/14 [History] Ferrous Sulfate [Iron (65 MG Elemental)] 325 mg PO HS 08/19/14 [History] Ondansetron Odt [Zofran ODT] 4 mg PO Q8HR PRN #15 tab 01/04/15 [Rx] Calcitriol 0.25 mcg PO SUTUFR 01/07/15 [History] Liothyronine Sodium [Cytomel] 5 mcg PO DAILY 01/07/15 [History] Levothyroxine Sodium [Synthroid] 25 mcg PO DAILY@0630 tab 01/12/15 [Rx] ALPRAZolam [Xanax] 0.25 mg PO BID PRN 09/02/16 [History] Carvedilol [Coreg] 25 mg PO BID 09/02/16 [History] Gabapentin [Neurontin] 100 mg PO TID 09/02/16 [History] Magnesium 200 mg PO HS 09/02/16 [History] Morphine Sulfate ER [Ms Contin] 15 mg PO BID 09/02/16 [History] Repaglinide [Prandin] 1 mg PO DAILY 09/24/16 [History] Repaglinide [Prandin] 2 mg PO DAILY@1200 09/24/16 [History] HYDROcodone/APAP 10-325MG [[place] 10-325] 1 tab PO Q4HR PRN 09/25/16 [History] Furosemide [Lasix] 40 mg PO MOWEFR 12/03/16 [History] hydrALAZINE HCL [Apresoline] 50 mg PO TID 12/03/16 [History] Aspirin 81 mg PO DAILY 12/09/16 [Rx] Atorvastatin [Lipitor] 40 mg PO HS #30 tab 12/09/16 [Rx] Isosorbide Mononitrate ER [Imdur] 30 mg PO DAILY #30 tab 12/09/16 [Rx] Nitroglycerin Sl Tabs [Nitrostat] 0.4 mg SUBLINGUAL Q5M PRN #25 tab 12/09/16 [Rx ] Follow up Appointment(s)/Referral(s): Compa Ramírez MD [STAFF PHYSICIAN] - 1 Week Reanna Cowan MD [STAFF PHYSICIAN] - 1 Week Fay Lerner MD [Primary Care Provider] - 12/11/16 [facility] Visiting Nurse, [NON-STAFF] - 1 Week Pedro Camacho MD [STAFF PHYSICIAN] - 3 Weeks Discharge Disposition: HOME WITH HOME HEALTH SERVICES
[2016-12-09 11:08] LABS: Manual Review Performed
[2016-12-09 11:29] LABS: Glucose,Whole Blood 101 mg/dL (75-99)
[2016-12-09 11:46] VITALS: BP 111/59; PULSE 77
--- NOTE | 2016-12-09 12:46 | P.PN ---
Subjective This is a pleasant 66-year-old female with a known history of chronic anemia, prior GI bleed, rheumatoid arthritis, hypertension, hyperlipidemia, chronic kidney disease. Presented to the hospital with symptoms of chest discomfort with associated shortness of breath. She was initially seen in consultation by Dr. Ramírez. Initial EKG on presentation here did show some ST depression in the anterior leads. Hemoglobin on admission was 6.8 patient did receive blood transfusion and her hemoglobin this morning was 9.4. Her troponins did come back to be positive at 0.061, 1.5, 3.7 and 5.8, suggesting non-ST elevation ME. Patient underwent cardiac catheterization by Dr. Carney that showed mild nonobstructive triple vessel disease and optimal medical management was recommended. Upon examination this morning, patient is feeling fairly well. Objective - Vital Signs Vital signs: Vital Signs Temp 97.1 F L 12/09/16 11:42 Pulse 77 12/09/16 11:42 Resp 18 12/09/16 11:42 BP 111/59 12/09/16 11:42 Pulse Ox 95 12/09/16 11:42 Intake & Output 12/08/16 12/09/16 12/09/16 18:59 06:59 18:59 Intake Total 885 450 25 Output Total 400 Balance 485 450 25 Weight 77.9 kg 80 kg Intake: IV 685 450 Sodium Chloride 0.9% 1, 685 450 000 ml @ 75 mls/hr IV . [id number] ZITA Rx#:[id number] Oral 200 25 Output: Urine 400 Other: Voiding Method Bedside Commode Bedside Commode # Voids 1 1 2 - Exam PHYSICAL EXAMINATION: HEENT: Head is atraumatic, normocephalic. Pupils equal, round. Neck is supple. There is no elevated jugular venous pressure. HEART EXAMINATION: Heart sounds regular, S1 and S2 normal. No murmur or gallop heard. CHEST EXAMINATION: Lungs are clear to auscultation and precussion. No chest wall tenderness is noted on palpation or with deep breathing. ABDOMEN: Soft, nontender. Bowel sounds are heard. No organomegaly noted. EXTREMITIES: 2+ peripheral pulses with no evidence of peripheral edema and no calf tenderness noted. Right groin puncture site soft without hematoma or bruit. NEUROLOGIC patient is awake, alert and oriented x3. . - Labs CBC & Chem 7: 12/09/16 06:27 12/09/16 06:27 Labs: Abnormal Lab Results - Last 24 Hours (Table) 12/08/16 12/08/16 12/09/16 Range/Units 16:37 20:28 06:23 RBC (3.80-5.40) m/uL Hgb (11.4-16.0) gm/dL Hct (34.0-46.0) % Plt Count (150-450) k/uL Lymphocytes # (1.0-4.8) k/uL Chloride (98-107) mmol/L BUN (7-17) mg/dL Creatinine (0.52-1.04) mg/dL Glucose (74-99) mg/dL POC Glucose (mg/dL) 215 H 263 H 137 H (75-99) mg/dL Calcium (8.4-10.2) mg/dL 12/09/16 12/09/16 12/09/16 Range/Units 06:27 06:27 11:26 RBC 2.93 L (3.80-5.40) m/uL Hgb 8.8 L (11.4-16.0) gm/dL Hct 28.4 L (34.0-46.0) % Plt Count 99 L (150-450) k/uL Lymphocytes # 0.4 L (1.0-4.8) k/uL Chloride 112 H (98-107) mmol/L BUN 53 H (7-17) mg/dL Creatinine 1.47 H (0.52-1.04) mg/dL Glucose 129 H (74-99) mg/dL POC Glucose (mg/dL) 101 H (75-99) mg/dL Calcium 8.1 L (8.4-10.2) mg/dL Assessment and Plan Plan: #1 non-ST elevated myocardial infarction, status post cardiac catheterization showing mild nonobstructive triple vessel disease #2 anemia #3 kidney disease #4 rheumatoid arthritis #5 diabetes #6 hypertension From cardiology perspective, we will continue optimal medical management. Patient may be discharged home from our standpoint. She will follow-up in the office on December 15 at 2 PM. The above dictated assessment and findings were discussed with signing physician. The impression and plan of care have been directed as dictated. Yuly Ayala, Nurse Practitioner, acting as scribe for signing physician.
== END 2016-12-09 15:07 | disposition home health service (06) | DRG 281 ==
LOC: EC 04:15 → 6SEL 08:05
PROVIDERS: ADMIT Internal Medicine Geriatric Medicine; ATTEND Internal Medicine Geriatric Medicine
PROC: 30233N1 Transfusion of Nonautologous Red Blood Cells into Peripheral Vein, Percutaneous Approach (ICD-10-PCS; 2016-12-04)
PROC: B2111ZZ Fluoroscopy of Multiple Coronary Arteries using Low Osmolar Contrast (ICD-10-PCS; principal; 2016-12-07 13:05)
PROC: 4A023N7 Measurement of Cardiac Sampling and Pressure, Left Heart, Percutaneous Approach (ICD-10-PCS; principal; 2016-12-07 13:05)
DX: I21.4 Non-ST elevation (NSTEMI) myocardial infarction (principal); N17.9 Acute kidney failure, unspecified; E11.22 Type 2 diabetes mellitus with diabetic chronic kidney disease; E11.40 Type 2 diabetes mellitus with diabetic neuropathy, unspecified; N18.3 Chronic kidney disease, stage 3 (moderate); E03.9 Hypothyroidism, unspecified; D50.9 Iron deficiency anemia, unspecified; I25.110 Atherosclerotic heart disease of native coronary artery with unstable angina pectoris; E78.5 Hyperlipidemia, unspecified; E87.70 Fluid overload, unspecified; F41.9 Anxiety disorder, unspecified; G60.9 Hereditary and idiopathic neuropathy, unspecified; G89.4 Chronic pain syndrome; I08.1 Rheumatic disorders of both mitral and tricuspid valves; I12.9 Hypertensive chronic kidney disease with stage 1 through stage 4 chronic kidney disease, or unspecified chronic kidney disease; M06.9 Rheumatoid arthritis, unspecified; Z79.52 Long term (current) use of systemic steroids; Z79.899 Other long term (current) drug therapy; Z82.49 Family history of ischemic heart disease and other diseases of the circulatory system; Z87.442 Personal history of urinary calculi
CPT/HCPCS: 36415; 36430; 71010; 80048; 80053; 82150; 83010; 83605; 83690; 83735; 84484; 85025; 85027; 85045; 85379; 85610; 86850; 86900; 86901; 86920; 93005; 93306; 93458; 94760; 96374; 96375; 99285

== ENCOUNTER 2016-12-25 11:26 | Emergency (ER) | payer MEDICARE ==
[2016-12-25] MEDS ORDERED: SODIUM CHLORIDE 0.9% 1,000 ML IV STA (11:38)
--- NOTE | 2016-12-25 12:11 | ED ---
General Adult HPI - General Source: patient, RN notes reviewed, old records reviewed Mode of arrival: wheelchair Limitations: no limitations <Dandy Virk - Last Filed: 12/25/16 12:32> <Harry Barragan - Last Filed: 12/25/16 19:56> - General Chief complaint: Recheck/Abnormal Lab/Rx Stated complaint: SENT BY DR FOR BLOOD TRANSFUSION Time Seen by Provider: 12/25/16 11:38 - History of Present Illness Initial comments: This is a 66-year-old female the ER for evaluation. Patient presents today for evaluation of weakness. Abnormal lab tests. Patient found to have outpatient lentis resulting in anemia. Low hemoglobin 5 around 5. Patient has history of anemia history of blood transfusions. Patient sent in today for evaluation, possible transfusion. Patient has had full GI evaluation with no possibility of GI bleed. Patient states she is does not make enough hemoglobin. No shortness of breath or near syncope at this time (Dandy Virk) - Related Data Home Medications Medication Instructions Recorded Confirmed Omeprazole [PriLOSEC] 20 mg PO BID 02/20/14 12/25/16 predniSONE 10 mg PO DAILY 02/20/14 12/25/16 Cyanocobalamin [Vitamin B-12] 2,500 mcg PO DAILY 08/19/14 12/25/16 Ergocalciferol [Vitamin D2 50,000 unit PO WE 08/19/14 12/25/16 (DRISDOL)] Ferrous Sulfate [Iron (65 MG 325 mg PO HS 08/19/14 12/25/16 Elemental)] Calcitriol 0.25 mcg PO SUTUFR 01/07/15 12/25/16 Liothyronine Sodium [Cytomel] 5 mcg PO DAILY 01/07/15 12/25/16 ALPRAZolam [Xanax] 0.25 mg PO BID PRN 09/02/16 12/25/16 Gabapentin [Neurontin] 100 mg PO TID 09/02/16 12/25/16 Magnesium 200 mg PO HS 09/02/16 12/25/16 Morphine Sulfate ER [Ms Contin] 15 mg PO BID 09/02/16 12/25/16 Repaglinide [Prandin] 1 mg PO DAILY 09/24/16 12/25/16 Repaglinide [Prandin] 2 mg PO DAILY@1200 09/24/16 12/25/16 HYDROcodone/APAP 10-325MG [[place] 1 tab PO Q4HR PRN 09/25/16 12/25/16 10-325] Furosemide [Lasix] 40 mg PO MOWEFR 12/03/16 12/25/16 hydrALAZINE HCL [Apresoline] 50 mg PO TID 12/03/16 12/25/16 Carvedilol [Coreg] 12.5 mg PO BID 12/25/16 12/25/16 Metolazone [Zaroxolyn] 2.5 mg PO Q48H PRN 12/25/16 12/25/16 Previous Rx's Medication Instructions Recorded Ondansetron Odt [Zofran ODT] 4 mg PO Q8HR PRN #15 tab 01/04/15 Levothyroxine Sodium [Synthroid] 25 mcg PO DAILY@0630 tab 01/12/15 Aspirin 81 mg PO DAILY 12/09/16 Atorvastatin [Lipitor] 40 mg PO HS #30 tab 12/09/16 Isosorbide Mononitrate ER [Imdur] 30 mg PO DAILY #30 tab 12/09/16 Nitroglycerin Sl Tabs [Nitrostat] 0.4 mg SUBLINGUAL Q5M PRN #25 tab 12/09/16 Allergies Allergy/AdvReac Type Severity Reaction Status Date / Time codeine Allergy Rash/Hives Verified 12/25/16 12:18 Sulfa (Sulfonamide Allergy Rash/Hives Verified 12/25/16 12:18 Antibiotics) gold Allergy Unknown Uncoded 12/03/16 04:29 Review of Systems ROS Other: All systems not noted in ROS Statement are negative. <Dandy Virk - Last Filed: 12/25/16 12:32> ROS Other: All systems not noted in ROS Statement are negative. <Harry Barragan - Last Filed: 12/25/16 19:56> ROS Statement: Those systems with pertinent positive or pertinent negative responses have been documented in the HPI. Past Medical History Past Medical History: Hyperlipidemia, Renal Disease, Thyroid Disorder Additional Past Medical History / Comment(s): low vitamin d levels which caused renal deficiency, parathyroid overactive related to low vit d levels, chronic prednisone secondary to RA followed by Dr. Marlow, ANEMIA,COMPRESSION FX L1, PAST FALL. of lithiasis, Csection, gall bladder History of Any Multi-Drug Resistant Organisms: None Reported Past Surgical History: Orthopedic Surgery Additional Past Surgical History / Comment(s): right knee TKA 2, carpel tunnel , CYST REMOVED (NECK) AGE 6, 2 back surgery 2005 Past Anesthesia/Blood Transfusion Reactions: No Reported Reaction Past Psychological History: Anxiety Smoking Status: Never smoker Past Alcohol Use History: None Reported Past Drug Use History: None Reported - Past Family History Mother Additional Family Medical History / Comment(s): addisons disease Father Family Medical History: Hypertension <Dandy Virk - Last Filed: 12/25/16 12:32> General Exam Limitations: no limitations General appearance: alert, in no apparent distress Head exam: Present: atraumatic, normocephalic, normal inspection Eye exam: Present: normal appearance, PERRL, EOMI. Absent: scleral icterus, conjunctival injection, periorbital swelling ENT exam: Present: normal exam, mucous membranes moist Neck exam: Present: normal inspection. Absent: tenderness, meningismus, lymphadenopathy Respiratory exam: Present: normal lung sounds bilaterally. Absent: respiratory distress, wheezes, rales, rhonchi, stridor Cardiovascular Exam: Present: regular rate, normal rhythm, normal heart sounds. Absent: systolic murmur, diastolic murmur, rubs, gallop, clicks GI/Abdominal exam: Present: soft, normal bowel sounds. Absent: distended, tenderness, guarding, rebound, rigid Extremities exam: Present: normal inspection, full ROM, normal capillary refill. Absent: tenderness, pedal edema, joint swelling, calf tenderness Back exam: Present: normal inspection Neurological exam: Present: alert, oriented X3, CN II-XII intact Psychiatric exam: Present: normal affect, normal mood Skin exam: Present: warm, dry, intact, normal color. Absent: rash <Dandy Virk - Last Filed: 12/25/16 12:32> Course <Dandy Virk - Last Filed: 12/25/16 12:32> <Harry Barragan - Last Filed: 12/25/16 19:56> Vital Signs 12/25/16 12/25/16 12/25/16 11:33 12:17 13:37 Temperature 97.6 F 97.1 F L Pulse Rate 80 77 78 Respiratory 18 16 18 Rate Blood Pressure 145/62 109/50 115/59 O2 Sat by Pulse 99 98 98 Oximetry 12/25/16 12/25/16 12/25/16 14:36 14:52 15:10 Temperature 97.2 F L 97.2 F L 97.2 F L Pulse Rate 72 71 68 Respiratory 18 16 16 Rate Blood Pressure 128/54 137/86 140/64 O2 Sat by Pulse 95 Oximetry 12/25/16 12/25/16 12/25/16 15:25 15:40 15:52 Temperature 97.4 F L 97.2 F L 97.3 F L Pulse Rate 66 78 65 Respiratory 16 18 16 Rate Blood Pressure 145/68 145/64 143/67 O2 Sat by Pulse Oximetry 12/25/16 12/25/16 12/25/16 16:52 17:31 18:02 Temperature 97.3 F L 97.3 F L 97.2 F L Pulse Rate 64 65 72 Respiratory 16 16 17 Rate Blood Pressure 151/67 153/66 162/69 O2 Sat by Pulse 96 Oximetry 12/25/16 18:56 Temperature 97.3 F L Pulse Rate 65 Respiratory 16 Rate Blood Pressure 153/66 O2 Sat by Pulse 96 Oximetry - Reevaluation(s) Reevaluation #1: 12/25/16 12:33 The patient's medical record is reviewed, patient will be transfused (Dandy Virk) Reevaluation #2: 12/25/16 19:56 Reevaluation patient are secondary blood he'll she feels much improved she has had no reaction. She states she is ready to go home. She will follow-up with her doctor and return when necessary I did discuss this with her and her family members. (Harry Barragan) EKG Findings - EKG Comments: EKG Findings:: EKG shows normal sinus rhythm at 65, WV 170, QRS 80, QTC 432 <Dandy Virk - Last Filed: 12/25/16 12:32> Medical Decision Making <Dandy Virk - Last Filed: 12/25/16 12:32> - Lab Data Result diagrams: 12/25/16 13:15 12/25/16 13:15 <Harry Barragan - Last Filed: 12/25/16 19:56> - Medical Decision Making 66 female ER for evaluation of anemia. Weakness. Patient will be transfused, his transfused feeling better is okay for discharge home (Dandy Virk) - Lab Data Lab Results 12/25/16 12/25/16 12/25/16 Range/Units 13:15 13:15 13:15 WBC (3.8-10.6) k/uL RBC (3.80-5.40) m/uL Hgb (11.4-16.0) gm/dL Hct (34.0-46.0) % MCV (80.0-100.0) fL MCH (25.0-35.0) pg MCHC (31.0-37.0) g/dL RDW (11.5-15.5) % Plt Count (150-450) k/uL Neutrophils % % Lymphocytes % % Monocytes % % Eosinophils % % Basophils % % Neutrophils # (1.3-7.7) k/uL Lymphocytes # (1.0-4.8) k/uL Monocytes # (0-1.0) k/uL Eosinophils # (0-0.7) k/uL Basophils # (0-0.2) k/uL Anisocytosis Macrocytosis PT (9.0-12.0) sec INR (<1.1) APTT (22.0-30.0) sec Sodium 139 (137-145) mmol/L Potassium 4.6 (3.5-5.1) mmol/L Chloride 104 (98-107) mmol/L Carbon Dioxide 26 (22-30) mmol/L Anion Gap 9 mmol/L BUN 78 H (7-17) mg/dL Creatinine 1.41 H (0.52-1.04) mg/dL Est GFR (MDRD) Af Amer 46 (>60 ml/min/1.73 sqM) Est GFR (MDRD) Non-Af 38 (>60 ml/min/1.73 sqM) Glucose 205 H (74-99) mg/dL Calcium 8.4 (8.4-10.2) mg/dL Total Bilirubin 0.4 (0.2-1.3) mg/dL AST 16 (14-36) U/L ALT 23 (9-52) U/L Alkaline Phosphatase 82 (38-126) U/L Total Creatine Kinase <20 L (30-135) U/L CK-MB (CK-2) 1.1 (0.0-2.4) ng/mL CK-MB (CK-2) Rel Index 0.0 Troponin I 0.019 (0.000-0.034) ng/mL Total Protein 4.8 L (6.3-8.2) g/dL Albumin 2.7 L (3.5-5.0) g/dL Lipase 103 (23-300) U/L Blood Type O Positive Blood Type Recheck No Antibody Screen NEGATIVE Crossmatch See Detail Spec Expiration Date 12/28/2016 - 231412/25/16 12/25/16 Range/Units 13:15 13:15 WBC 5.3 (3.8-10.6) k/uL RBC 1.85 L (3.80-5.40) m/uL Hgb 5.7 L* (11.4-16.0) gm/dL Hct 18.0 L* (34.0-46.0) % MCV 97.0 (80.0-100.0) fL MCH 30.9 (25.0-35.0) pg MCHC 31.8 (31.0-37.0) g/dL RDW 16.2 H (11.5-15.5) % Plt Count 133 L (150-450) k/uL Neutrophils % 82 % Lymphocytes % 10 % Monocytes % 5 % Eosinophils % 2 % Basophils % 0 % Neutrophils # 4.4 (1.3-7.7) k/uL Lymphocytes # 0.5 L (1.0-4.8) k/uL Monocytes # 0.3 (0-1.0) k/uL Eosinophils # 0.1 (0-0.7) k/uL Basophils # 0.0 (0-0.2) k/uL Anisocytosis Slight Macrocytosis Slight PT 10.1 (9.0-12.0) sec INR 1.0 (<1.1) APTT 20.3 L (22.0-30.0) sec Sodium (137-145) mmol/L Potassium (3.5-5.1) mmol/L Chloride (98-107) mmol/L Carbon Dioxide (22-30) mmol/L Anion Gap mmol/L BUN (7-17) mg/dL Creatinine (0.52-1.04) mg/dL Est GFR (MDRD) Af Amer (>60 ml/min/1.73 sqM) Est GFR (MDRD) Non-Af (>60 ml/min/1.73 sqM) Glucose (74-99) mg/dL Calcium (8.4-10.2) mg/dL Total Bilirubin (0.2-1.3) mg/dL AST (14-36) U/L ALT (9-52) U/L Alkaline Phosphatase (38-126) U/L Total Creatine Kinase (30-135) U/L CK-MB (CK-2) (0.0-2.4) ng/mL CK-MB (CK-2) Rel Index Troponin I (0.000-0.034) ng/mL Total Protein (6.3-8.2) g/dL Albumin (3.5-5.0) g/dL Lipase (23-300) U/L Blood Type Blood Type Recheck Antibody Screen Crossmatch Spec Expiration Date Disposition <Dandy Virk - Last Filed: 12/25/16 12:32> <Harry Barragan - Last Filed: 12/25/16 19:56> Clinical Impression: Anemia Disposition: HOME SELF-CARE Condition: Good Instructions: Anemia (ED) Referrals: Fay Lerner MD [Primary Care Provider] - 1-2 days
[2016-12-25 14:12] LABS: Anisocytosis Slight; Basophils % (A) 0 %; CH 31.3; CHCM 32.4; Eosinophils # (A) 0.1 k/uL (0-0.7); Eosinophils % (A) 2 %; HDW 2.77; Luc # (Auto) 0.05; Luc % (Auto) 1; Lymphocytes # (A) 0.5 k/uL (1.0-4.8); Lymphocytes % (A) 10 %; MCH 30.9 pg (25.0-35.0); MCHC 31.8 g/dL (31.0-37.0); Macrocytosis Slight; Mean Platelet Volume 7.9; Monocytes # (A) 0.3 k/uL (0-1.0); Monocytes % (A) 5 %; Neutrophils # (A) 4.4 k/uL (1.3-7.7); Neutrophils % (A) 82 %; RBC 1.85 m/uL (3.80-5.40); RDW 16.2 % (11.5-15.5); WBC 5.3 k/uL (3.8-10.6); WBC (Perox) 5.35
[2016-12-25 14:17] LABS: Calcium 8.4 mg/dL (8.4-10.2); Potassium 4.6 mmol/L (3.5-5.1); Total Bilirubin 0.4 mg/dL (0.2-1.3); Total Protein 4.8 g/dL (6.3-8.2)
[2016-12-25 14:21] LABS: HGB 5.7 gm/dL (11.4-16.0)
[2016-12-25 14:28] LABS: Creatine Kinase <20 U/L (30-135)
[2016-12-25 14:29] LABS: Partial Thromboplastin Time 20.3 sec (22.0-30.0); Prothrombin Time 10.1 sec (9.0-12.0)
[2016-12-25 14:41] LABS: Creatine Kinase MB 1.1 ng/mL (0.0-2.4); Troponin I 0.019 ng/mL (0.000-0.034)
[2016-12-25 20:24] VITALS: BP 146/74; PULSE 78; RESP 18; TEMP 97.4
== END 2016-12-25 20:24 | disposition home or self-care (01) ==
LOC: EC 11:26
DX: D64.9 Anemia, unspecified (principal); M06.9 Rheumatoid arthritis, unspecified; E07.9 Disorder of thyroid, unspecified; E55.9 Vitamin D deficiency, unspecified; N28.89 Other specified disorders of kidney and ureter; Z79.52 Long term (current) use of systemic steroids; Z79.891 Long term (current) use of opiate analgesic; Z79.84 Long term (current) use of oral hypoglycemic drugs; Z79.899 Other long term (current) drug therapy; Z88.2 Allergy status to sulfonamides; Z88.5 Allergy status to narcotic agent; Z91.09 Other allergy status, other than to drugs and biological substances
CPT/HCPCS: 99285; 96360; 96361 ×6; 36415; 86900; 86901; 80053; 82550; 82553; 83690; 84484; 85025; 85610; 85730; 86850; 86920; P9016

== ENCOUNTER 2017-01-19 07:36 | Day surgery (SDC) | payer MEDICARE ==
[2017-01-17 15:49] VITALS: BMI 29.2
[2017-01-19 08:03] VITALS: TEMP 97.6
[2017-01-19] MEDS: LACTATED RINGERS 1,000 ML IV SCH ×2 (08:03→08:39)
[2017-01-19] MEDS ORDERED: LIDOCAINE 1% 20 ML VIAL (10MG/ML) FOR IV START INTRADERMA ONE (08:04)
[2017-01-19 08:08] LABS: Glucose,Whole Blood 154 mg/dL (75-99)
[2017-01-19] MEDS ORDERED: LIDOCAINE 1% INJ 10MG/ML (20 ML MDV) ONE (08:45)
[2017-01-19] MEDS ORDERED: PROPOFOL 10 MG/ML 20 ML VIAL IV ONE (08:45)
--- NOTE | 2017-01-19 08:52 | P.GSHP ---
History of Present Illness H&P Date: 01/19/17 Chief Complaint: Anemia This is a 66-year-old female who's had problems with anemia. Patient is today for EGD and colonoscopy. Past Medical History Past Medical History: Diabetes Mellitus, Hyperlipidemia, Renal Disease, Thyroid Disorder Additional Past Medical History / Comment(s): Anemia,daily steroid,low vitamin d levels which caused renal deficiency, parathyroid overactive related to low vit d levels, chronic prednisone secondary to RA followed by Dr. Marlow, COMPRESSION FX L1,kidney stones History of Any Multi-Drug Resistant Organisms: None Reported Past Surgical History: Back Surgery, Section, Cholecystectomy, Orthopedic Surgery Additional Past Surgical History / Comment(s): right knee TKA 2, carpel tunnel , CYST REMOVED (NECK) AGE 6, 2 back surgery 2004 Past Anesthesia/Blood Transfusion Reactions: No Reported Reaction Additional Past Anesthesia/Blood Transfusion Reaction / Comment(s): no problems with blood transfusion. had 1 unit pRBC on 01-12-17,2 pRBCs units on 01-18-17,a unit pRBC 1 mos ago approx Smoking Status: Never smoker - Past Family History Mother Additional Family Medical History / Comment(s): addisons disease Father Family Medical History: Hypertension Medications and Allergies Home Medications Medication Instructions Recorded Confirmed Type Omeprazole [PriLOSEC] 20 mg PO BID 02/20/14 01/19/17 History predniSONE 10 mg PO DAILY 02/20/14 01/19/17 History Cyanocobalamin [Vitamin B-12] 2,500 mcg PO DAILY 08/19/14 01/19/17 History Ergocalciferol [Vitamin D2 50,000 unit PO Q30D 08/19/14 01/19/17 History (TONI)] Ferrous Sulfate [Iron (65 MG 325 mg PO HS 08/19/14 01/19/17 History Elemental)] Calcitriol 0.25 mcg PO DAILY 01/07/15 01/19/17 History Liothyronine Sodium [Cytomel] 5 mcg PO DAILY 01/07/15 01/19/17 History ALPRAZolam [Xanax] 0.25 mg PO BID PRN 09/02/16 01/19/17 History Gabapentin [Neurontin] 100 mg PO TID 09/02/16 01/19/17 History Magnesium 200 mg PO HS 09/02/16 01/19/17 History Morphine Sulfate ER [Ms Contin] 15 mg PO BID 09/02/16 01/19/17 History Repaglinide [Prandin] 1 mg PO DAILY 09/24/16 01/19/17 History Repaglinide [Prandin] 2 mg PO DAILY@1200 09/24/16 01/19/17 History HYDROcodone/APAP 10-325MG [[place] 1 tab PO Q4HR PRN 09/25/16 01/19/17 History 10-325] Furosemide [Lasix] 40 mg PO MOWEFR 12/03/16 01/19/17 History hydrALAZINE HCL [Apresoline] 50 mg PO TID 12/03/16 01/19/17 History Carvedilol [Coreg] 25 mg PO BID 12/25/16 01/19/17 History Isosorbide Mononitrate ER [Imdur] 30 mg PO QAM 01/17/17 01/19/17 History Allergies Allergy/AdvReac Type Severity Reaction Status Date / Time codeine Allergy Rash/Hives Verified 01/19/17 08:04 Sulfa (Sulfonamide Allergy Rash/Hives Verified 01/19/17 08:04 Antibiotics) gold Allergy Unknown Uncoded 01/19/17 08:04 Surgical - Exam Vital Signs Temp Pulse Resp BP Pulse Ox 97.6 F 83 20 178/82 98 01/19/17 08:01 01/19/17 08:01 01/19/17 08:01 01/19/17 08:01 01/19/17 08:01 - General well developed, no distress - Eyes PERRL - ENT normal pinna - Neck no masses - Respiratory normal expansion - Cardiovascular Rhythm: regular - Abdomen Abdomen: soft, non tender Results - Labs Abnormal Lab Results - Last 24 Hours (Table) 01/19/17 Range/Units 08:03 POC Glucose (mg/dL) 154 H (75-99) mg/dL Assessment and Plan Plan: Anemia. We'll perform EGD colonoscopy
--- NOTE | 2017-01-19 09:25 | P.OP ---
Date of Procedure: 01/19/17 Preoperative Diagnosis: Anemia GI bleed Postoperative Diagnosis: Mild antral gastritis Esophagitis Diverticulosis Large internal/external hemorrhoids with prolapse Multiple right colon and transverse colon polyps Procedure(s) Performed: EGD Colonoscopy Implants: Anesthesia: MAC Surgeon: Pedro Camacho Pathology: other (Antrum, esophagus, colon polyps) Condition: stable Disposition: PACU Indications for Procedure: Operative Findings: Description of Procedure: The patient's placed on the endoscopy table in the lateral position. She received IV sedation. The gastroscope some placed oropharynx. The scope was then placed the esophagus and the stomach. The scope was then placed through the pylorus. The first and second portion of duodenum appeared normal. There is no blood seen the duodenum. The scope was then brought back the antrum and this was minimal inflamed. A biopsies performed. There was some blood seen the stomach which appeared to be due to some minimal scope trauma. There is no active source of bleeding seen. The GE junction was at 38 7 is. There is no significant hiatal hernia. The distal esophagus appeared inflamed and a biopsies performed. The scope was brought back and the proximal esophagus appeared normal. Scope was withdrawn for patient. Next digital rectal exam was performed there was a very large external and internal hemorrhoids with prolapse. There is no active bleeding from hemorrhoids. The flexible colonoscope was then placed patient anus and passed throughout the entire colon. Ileocecal valve was visually is. The cecum appeared normal. In the right colon there was a polyp seen this removed the forcep. Another polyp was seen in the distal right colon was removed forcep. Scope was withdrawn and a polyp was seen and proximal transverse colon. This was removed. The scope was then withdrawn and the remainder of the transverse colon appeared normal. There were scattered diverticuli seen throughout the colon. The descending colon had more diverticula.; Had some diverticula changes there is no bleeding seen the sigmoid colon or descending colon. Scope was then brought back the rectum this appeared normal. Scope was withdrawn through the anus and extensive internal and external hemorrhoids were noted. The patient had a CBC drawn in the postoperative care area.
[2017-01-19 09:26] VITALS: RESP 18
[2017-01-19 09:39] LABS: Glucose,Whole Blood 167 mg/dL (75-99)
[2017-01-19 10:13] LABS: Anisocytosis Slight; CH 29.5; CHCM 32.6; HCT 25.2 % (34.0-46.0); HDW 2.95; MCH 30.8 pg (25.0-35.0); MCHC 33.8 g/dL (31.0-37.0); MCV 91.1 fL (80.0-100.0); Mean Platelet Volume 7.9; RBC 2.77 m/uL (3.80-5.40); RDW 16.4 % (11.5-15.5); WBC 6.1 k/uL (3.8-10.6)
[2017-01-19 10:16] VITALS: BP 188/84; PULSE 74
[2017-01-19 10:18] LABS: HGB 8.5 gm/dL (11.4-16.0)
== END 2017-01-19 11:42 | disposition home or self-care (01) ==
LOC: ORWHC2ENDO 07:36
PROVIDERS: ATTEND Surgery
DX: D12.3 Benign neoplasm of transverse colon (principal); D12.2 Benign neoplasm of ascending colon; D64.9 Anemia, unspecified; K29.70 Gastritis, unspecified, without bleeding; K21.0 Gastro-esophageal reflux disease with esophagitis; E07.9 Disorder of thyroid, unspecified; K57.30 Diverticulosis of large intestine without perforation or abscess without bleeding; E78.5 Hyperlipidemia, unspecified; M06.9 Rheumatoid arthritis, unspecified; K64.8 Other hemorrhoids; E11.9 Type 2 diabetes mellitus without complications; Z79.82 Long term (current) use of aspirin; Z79.52 Long term (current) use of systemic steroids; Z79.899 Other long term (current) drug therapy; Z79.84 Long term (current) use of oral hypoglycemic drugs; Z82.49 Family history of ischemic heart disease and other diseases of the circulatory system
CPT/HCPCS: 88305; 85027; 88342; 45380; 43239; J2001; J2704

== ENCOUNTER → 2017-02-02 | Outpatient (CLI) | payer MEDICARE | END | disposition home or self-care (01) | LOC: LABWHC1 13:56 | PROVIDERS: ATTEND Family Medicine | DX: Z53.9 Procedure and treatment not carried out, unspecified reason (principal) ==

== ENCOUNTER 2017-02-17 05:37 | Emergency (ER) | payer MEDICARE ==
[2017-02-17 06:36] LABS: Basophils % (A) 0 %; CH 31.5; CHCM 32.8; Eosinophils # (A) 0.2 k/uL (0-0.7); Eosinophils % (A) 3 %; HCT 26.4 % (34.0-46.0); HDW 2.81; HGB 8.3 gm/dL (11.4-16.0); Luc # (Auto) 0.07; Luc % (Auto) 1; Lymphocytes # (A) 0.6 k/uL (1.0-4.8); Lymphocytes % (A) 8 %; MCH 30.4 pg (25.0-35.0); MCHC 31.5 g/dL (31.0-37.0); MCV 96.5 fL (80.0-100.0); Mean Platelet Volume 7.7; Monocytes # (A) 0.4 k/uL (0-1.0); Monocytes % (A) 5 %; Neutrophils # (A) 6.8 k/uL (1.3-7.7); Neutrophils % (A) 84 %; RBC 2.74 m/uL (3.80-5.40); RDW 15.8 % (11.5-15.5); WBC (Perox) 8.24
[2017-02-17 06:47] LABS: Calcium 8.4 mg/dL (8.4-10.2); Potassium 4.6 mmol/L (3.5-5.1); Total Bilirubin 0.3 mg/dL (0.2-1.3); Total Protein 5.5 g/dL (6.3-8.2)
[2017-02-17] MEDS ORDERED: ONDANSETRON 4 MG/2 ML VIAL IVP STA (06:49)
[2017-02-17] MEDS ORDERED: MORPHINE SULFATE ER 15 MG TABLET PO STA (06:50)
[2017-02-17] MEDS ORDERED: HYDROcodone/APAP 10-325MG 1 EACH TAB PO ONE (06:50)
--- NOTE | 2017-02-17 06:55 | ED ---
General Adult HPI - General Source: patient Mode of arrival: wheelchair Limitations: no limitations - History of Present Illness Onset/Timin -: days(s) Consistency: constant Improves with: none Worsens with: none Associated Symptoms: weakness Treatments Prior to Arrival: none <Braeden Palafox - Last Filed: 02/17/17 06:51> <Dandy Virk - Last Filed: 02/17/17 09:09> - General Chief complaint: Recheck/Abnormal Lab/Rx Stated complaint: low hemoglobin Time Seen by Provider: 02/17/17 06:00 - History of Present Illness Initial comments: Patient is a 66-year-old woman resenting with complaint that she has been having some generalized fatigue and weakness. She states that it feels like her anemia is flaring up. She states that the last time she was like this she required a transfusion. She was told that she is anemic due to rheumatoid arthritis and some kidney disease. She states that she usually gets checked a few times a month and the last time her hemoglobin was 7. (Braeden Palafox) - Related Data Home Medications Medication Instructions Recorded Confirmed Omeprazole [PriLOSEC] 20 mg PO BID 02/20/14 02/17/17 predniSONE 9 mg PO DAILY 02/20/14 02/17/17 Cyanocobalamin [Vitamin B-12] 2,500 mcg PO DAILY 08/19/14 02/17/17 Ferrous Sulfate [Iron (65 MG 325 mg PO HS 08/19/14 02/17/17 Elemental)] Calcitriol 0.25 mcg PO DAILY 01/07/15 02/17/17 Liothyronine Sodium [Cytomel] 5 mcg PO DAILY 01/07/15 02/17/17 ALPRAZolam [Xanax] 0.25 mg PO BID PRN 09/02/16 02/17/17 Gabapentin [Neurontin] 100 mg PO TID 09/02/16 02/17/17 Magnesium 200 mg PO HS 09/02/16 02/17/17 Morphine Sulfate ER [Ms Contin] 15 mg PO BID 09/02/16 02/17/17 Repaglinide [Prandin] 1 mg PO DAILY 09/24/16 02/17/17 Repaglinide [Prandin] 2 mg PO DAILY@1200 09/24/16 02/17/17 HYDROcodone/APAP 10-325MG [[place] 1 tab PO Q4HR PRN 09/25/16 02/17/17 10-325] Furosemide [Lasix] 40 mg PO MOWEFR 12/03/16 02/17/17 hydrALAZINE HCL [Apresoline] 50 mg PO TID 12/03/16 02/17/17 Carvedilol [Coreg] 25 mg PO BID 12/25/16 02/17/17 Isosorbide Mononitrate ER [Imdur] 30 mg PO QAM 01/17/17 02/17/17 Previous Rx's Medication Instructions Recorded Ondansetron Odt [Zofran ODT] 4 mg PO Q8HR PRN #15 tab 01/04/15 Levothyroxine Sodium [Synthroid] 25 mcg PO DAILY@0630 tab 01/12/15 Atorvastatin [Lipitor] 40 mg PO HS #30 tab 12/09/16 Nitroglycerin Sl Tabs [Nitrostat] 0.4 mg SUBLINGUAL Q5M PRN #25 tab 12/09/16 Allergies Allergy/AdvReac Type Severity Reaction Status Date / Time codeine Allergy Rash/Hives Verified 01/19/17 08:04 Sulfa (Sulfonamide Allergy Rash/Hives Verified 01/19/17 08:04 Antibiotics) gold Allergy Unknown Uncoded 01/19/17 08:04 Review of Systems ROS Other: All systems not noted in ROS Statement are negative. Constitutional: Reports: weakness (Generalized) Respiratory: Denies: cough, dyspnea Cardiovascular: Denies: chest pain, palpitations Gastrointestinal: Denies: abdominal pain, vomiting, diarrhea Genitourinary: Denies: dysuria, hematuria Musculoskeletal: Denies: back pain Skin: Denies: rash Neurological: Denies: headache, weakness, numbness <Braeden Palafox - Last Filed: 02/17/17 06:51> ROS Other: All systems not noted in ROS Statement are negative. <Dandy Virk - Last Filed: 02/17/17 09:09> ROS Statement: Those systems with pertinent positive or pertinent negative responses have been documented in the HPI. Past Medical History Past Medical History: Hyperlipidemia, Renal Disease, Thyroid Disorder Additional Past Medical History / Comment(s): low vitamin d levels which caused renal deficiency, parathyroid overactive related to low vit d levels, chronic prednisone secondary to RA followed by Dr. Marlow, ANEMIA,COMPRESSION FX L1, PAST FALL. of lithiasis, Csection, gall bladder History of Any Multi-Drug Resistant Organisms: None Reported Past Surgical History: Orthopedic Surgery Additional Past Surgical History / Comment(s): right knee TKA 2, carpel tunnel , CYST REMOVED (NECK) AGE 6, 2 back surgery 2005 Past Anesthesia/Blood Transfusion Reactions: No Reported Reaction Past Psychological History: Anxiety Smoking Status: Former smoker - Past Family History Mother Additional Family Medical History / Comment(s): addisons disease Father Family Medical History: Hypertension <Braeden Palafox - Last Filed: 02/17/17 06:51> General Exam Limitations: no limitations General appearance: alert, in no apparent distress Head exam: Present: atraumatic, normocephalic Eye exam: Present: normal appearance. Absent: scleral icterus, conjunctival injection Respiratory exam: Present: normal lung sounds bilaterally. Absent: respiratory distress, wheezes, rales, rhonchi, stridor Cardiovascular Exam: Present: regular rate, normal rhythm, normal heart sounds. Absent: systolic murmur, diastolic murmur, rubs, gallop GI/Abdominal exam: Present: soft. Absent: distended, tenderness, guarding, rebound, mass Extremities exam: Present: pedal edema (There is mild edema at the top of the socks (ankle) bilaterally). Absent: calf tenderness Back exam: Present: normal inspection. Absent: CVA tenderness (R), CVA tenderness (L) Neurological exam: Present: alert Skin exam: Present: warm, dry, intact, normal color. Absent: rash <Braeden Palafox - Last Filed: 02/17/17 06:51> Course <Braeden Palafox - Last Filed: 02/17/17 06:51> <Dandy Virk - Last Filed: 02/17/17 09:09> Vital Signs 02/17/17 02/17/17 02/17/17 05:41 06:06 07:50 Temperature 98.1 F Pulse Rate 87 97 87 Respiratory 20 20 18 Rate Blood Pressure 165/77 161/71 148/67 O2 Sat by Pulse 94 L 97 100 Oximetry 02/17/17 02/17/17 08:00 09:00 Temperature Pulse Rate 87 87 Respiratory 20 18 Rate Blood Pressure 139/66 148/67 O2 Sat by Pulse 100 100 Oximetry - Reevaluation(s) Reevaluation #1: 02/17/17 09:08 Patient has no complaints, unable to give urine test (Dandy Virk) Medical Decision Making - Lab Data Result diagrams: 02/17/17 06:00 <Braeden Palafox - Last Filed: 02/17/17 06:51> - Lab Data Result diagrams: 02/17/17 06:00 02/17/17 06:00 - Radiology Data Radiology results: report reviewed (Chest x-ray is negative for acute disease), image reviewed <Dandy Virk - Last Filed: 02/17/17 09:09> - Medical Decision Making 66 female here for evaluation of what she feels like his anemia. Patient's hemoglobin is normal for her or above her average, no acute bleeding. Patient can be discharged home with no complaints (Dandy Virk) - Lab Data Lab Results 02/17/17 02/17/17 02/17/17 Range/Units 06:00 06:00 06:00 WBC 8.0 (3.8-10.6) k/uL RBC 2.74 L (3.80-5.40) m/uL Hgb 8.3 L (11.4-16.0) gm/dL Hct 26.4 L (34.0-46.0) % MCV 96.5 (80.0-100.0) fL MCH 30.4 (25.0-35.0) pg MCHC 31.5 (31.0-37.0) g/dL RDW 15.8 H (11.5-15.5) % Plt Count 178 (150-450) k/uL Neutrophils % 84 % Lymphocytes % 8 % Monocytes % 5 % Eosinophils % 3 % Basophils % 0 % Neutrophils # 6.8 (1.3-7.7) k/uL Lymphocytes # 0.6 L (1.0-4.8) k/uL Monocytes # 0.4 (0-1.0) k/uL Eosinophils # 0.2 (0-0.7) k/uL Basophils # 0.0 (0-0.2) k/uL PT (9.0-12.0) sec INR (<1.2) APTT (22.0-30.0) sec Sodium 142 (137-145) mmol/L Potassium 4.6 (3.5-5.1) mmol/L Chloride 108 H (98-107) mmol/L Carbon Dioxide 23 (22-30) mmol/L Anion Gap 11 mmol/L BUN 55 H (7-17) mg/dL Creatinine 1.54 H (0.52-1.04) mg/dL Est GFR (MDRD) Af Amer 41 (>60 ml/min/1.73 sqM) Est GFR (MDRD) Non-Af 34 (>60 ml/min/1.73 sqM) Glucose 62 L (74-99) mg/dL Calcium 8.4 (8.4-10.2) mg/dL Total Bilirubin 0.3 (0.2-1.3) mg/dL AST 19 (14-36) U/L ALT 29 (9-52) U/L Alkaline Phosphatase 84 (38-126) U/L Total Creatine Kinase <20 L (30-135) U/L CK-MB (CK-2) 4.5 H* (0.0-2.4) ng/mL CK-MB (CK-2) Rel Index 0.0 Troponin I <0.012 (0.000-0.034) ng/mL Total Protein 5.5 L (6.3-8.2) g/dL Albumin 3.2 L (3.5-5.0) g/dL 02/17/17 Range/Units 06:00 WBC (3.8-10.6) k/uL RBC (3.80-5.40) m/uL Hgb (11.4-16.0) gm/dL Hct (34.0-46.0) % MCV (80.0-100.0) fL MCH (25.0-35.0) pg MCHC (31.0-37.0) g/dL RDW (11.5-15.5) % Plt Count (150-450) k/uL Neutrophils % % Lymphocytes % % Monocytes % % Eosinophils % % Basophils % % Neutrophils # (1.3-7.7) k/uL Lymphocytes # (1.0-4.8) k/uL Monocytes # (0-1.0) k/uL Eosinophils # (0-0.7) k/uL Basophils # (0-0.2) k/uL PT 9.5 (9.0-12.0) sec INR 0.9 (<1.2) APTT 21.7 L (22.0-30.0) sec Sodium (137-145) mmol/L Potassium (3.5-5.1) mmol/L Chloride (98-107) mmol/L Carbon Dioxide (22-30) mmol/L Anion Gap mmol/L BUN (7-17) mg/dL Creatinine (0.52-1.04) mg/dL Est GFR (MDRD) Af Amer (>60 ml/min/1.73 sqM) Est GFR (MDRD) Non-Af (>60 ml/min/1.73 sqM) Glucose (74-99) mg/dL Calcium (8.4-10.2) mg/dL Total Bilirubin (0.2-1.3) mg/dL AST (14-36) U/L ALT (9-52) U/L Alkaline Phosphatase (38-126) U/L Total Creatine Kinase (30-135) U/L CK-MB (CK-2) (0.0-2.4) ng/mL CK-MB (CK-2) Rel Index Troponin I (0.000-0.034) ng/mL Total Protein (6.3-8.2) g/dL Albumin (3.5-5.0) g/dL Disposition <Braeden Palafox - Last Filed: 02/17/17 06:51> <Dandy Virk - Last Filed: 02/17/17 09:09> Clinical Impression: Anemia Disposition: HOME SELF-CARE Condition: Good Instructions: Anemia (ED) Referrals: Fay Lerner MD [Primary Care Provider] - 1-2 days
[2017-02-17 06:59] LABS: Creatine Kinase <20 U/L (30-135)
[2017-02-17 07:11] LABS: Troponin I <0.012 ng/mL (0.000-0.034)
--- NOTE | 2017-02-17 07:19 | XR ---
EXAM: XR Chest, 2 Views CLINICAL HISTORY: Reason: Weakness, chest pain. Patient states that she was recently diagnosed with pneumonia. TECHNIQUE: Frontal and lateral views of the chest. COMPARISON: Chest radiograph on 12/03/2016 FINDINGS: Lungs/pleura: Low lung volumes. Opacity in the right mid and lower lung zone may represent pneumonia. Left basilar opacity may represent atelectasis. Possible trace right pleural effusion. No pneumothorax. Heart/mediastinum: Stable mild cardiomegaly. Soft tissues: Unremarkable. Bones: No acute fracture. IMPRESSION: Patchy opacity in the right lung is concerning for pneumonia. Possible trace right pleural effusion. Left basilar atelectasis.
[2017-02-17 07:21] LABS: Creatine Kinase MB 4.5 ng/mL (0.0-2.4)
[2017-02-17 07:33] LABS: INR 0.9 (<1.2); Partial Thromboplastin Time 21.7 sec (22.0-30.0); Prothrombin Time 9.5 sec (9.0-12.0)
[2017-02-17 07:51] VITALS: PULSE 87
[2017-02-17 09:01] VITALS: BP 148/67; RESP 18
[2017-02-17 09:24] VITALS: TEMP 98.2
== END 2017-02-17 09:24 | disposition home or self-care (01) ==
LOC: EC 05:37
DX: D64.9 Anemia, unspecified (principal); R53.83 Other fatigue; E78.5 Hyperlipidemia, unspecified; E07.9 Disorder of thyroid, unspecified; F41.9 Anxiety disorder, unspecified; Z87.891 Personal history of nicotine dependence; Z79.52 Long term (current) use of systemic steroids; Z79.899 Other long term (current) drug therapy; Z88.2 Allergy status to sulfonamides; Z88.5 Allergy status to narcotic agent; Z91.09 Other allergy status, other than to drugs and biological substances
CPT/HCPCS: 36415; 93005; 80053; 82550; 82553; 84484; 85025; 85610; 85730; 71020; 99285; 96374; J2405

== ENCOUNTER → 2017-03-01 | Day surgery (SDC) | payer MEDICARE ==
[2017-02-27 11:33] VITALS: BMI 28.8
== END ==
LOC: ORWHC2ENDO 06:55
PROVIDERS: ATTEND Internal Medicine Gastroenterology
DX: D50.9 Iron deficiency anemia, unspecified (principal)
CPT/HCPCS: 91110

== ENCOUNTER 2017-03-28 00:12 | Emergency (ER) | payer MEDICARE ==
[2017-03-28 00:25] LABS: Glucose,Whole Blood 178 mg/dL (75-99)
--- NOTE | 2017-03-28 00:47 | ED ---
General Adult HPI - General Chief complaint: Weakness Stated complaint: Low HGB,Low Sugar Time Seen by Provider: 03/28/17 00:36 Source: patient, RN notes reviewed, old records reviewed Mode of arrival: wheelchair Limitations: no limitations - History of Present Illness Initial comments: This is a 67 female to the ED co weakness, low blood sugar, patient admits to recently changing diabetic meidcations, also thinks her hemoglobin may be low as she has been fatigued. Patient denies fever, no sob, no cough, no fever, no abdominal pain, no NVD. No recent travel history - Related Data Home Medications Medication Instructions Recorded Confirmed Omeprazole [PriLOSEC] 20 mg PO BID 02/20/14 03/06/17 predniSONE 10 mg PO DAILY 02/20/14 03/06/17 Cyanocobalamin [Vitamin B-12] 2,500 mcg PO DAILY 08/19/14 03/06/17 Ferrous Sulfate [Iron (65 MG 325 mg PO HS 08/19/14 03/06/17 Elemental)] Calcitriol 0.25 mcg PO DAILY 01/07/15 03/06/17 Liothyronine Sodium [Cytomel] 5 mcg PO DAILY 01/07/15 03/06/17 ALPRAZolam [Xanax] 0.25 mg PO BID PRN 09/02/16 03/06/17 Gabapentin [Neurontin] 100 mg PO TID 09/02/16 03/06/17 Magnesium 200 mg PO HS 09/02/16 03/06/17 Morphine Sulfate ER [Ms Contin] 15 mg PO BID 09/02/16 03/06/17 Repaglinide [Prandin] 1 mg PO QAM 09/24/16 03/06/17 Repaglinide [Prandin] 2 mg PO DAILY@1200 09/24/16 03/06/17 HYDROcodone/APAP 10-325MG [[place] 1 tab PO Q4HR PRN 09/25/16 03/06/17 10-325] hydrALAZINE HCL [Apresoline] 50 mg PO TID 12/03/16 03/06/17 Carvedilol [Coreg] 25 mg PO BID 12/25/16 03/06/17 Isosorbide Mononitrate ER [Imdur] 30 mg PO QAM 01/17/17 03/06/17 Aspirin [Adult Low Dose Aspirin EC] 81 mg PO DAILY 02/27/17 03/06/17 Furosemide [Lasix] 40 mg PO DAILY 03/06/17 03/06/17 Previous Rx's Medication Instructions Recorded Ondansetron Odt [Zofran ODT] 4 mg PO Q8HR PRN #15 tab 01/04/15 Levothyroxine Sodium [Synthroid] 25 mcg PO DAILY@0630 tab 01/12/15 Atorvastatin [Lipitor] 40 mg PO HS #30 tab 12/09/16 Nitroglycerin Sl Tabs [Nitrostat] 0.4 mg SUBLINGUAL Q5M PRN #25 tab 12/09/16 Allergies Allergy/AdvReac Type Severity Reaction Status Date / Time codeine Allergy Rash/Hives Verified 03/28/17 00:21 Sulfa (Sulfonamide Allergy Rash/Hives Verified 03/28/17 00:21 Antibiotics) gold Allergy Unknown Uncoded 03/28/17 00:21 Review of Systems ROS Statement: Those systems with pertinent positive or pertinent negative responses have been documented in the HPI. ROS Other: All systems not noted in ROS Statement are negative. Past Medical History Past Medical History: Hyperlipidemia, Renal Disease, Thyroid Disorder Additional Past Medical History / Comment(s): low vitamin d levels which caused renal deficiency, parathyroid overactive related to low vit d levels, chronic prednisone secondary to RA followed by Dr. Marlow, ANEMIA,COMPRESSION FX L1, PAST FALL. of lithiasis, Csection, gall bladder History of Any Multi-Drug Resistant Organisms: C-DIFF Past Surgical History: Orthopedic Surgery Additional Past Surgical History / Comment(s): right knee TKA 2, carpel tunnel , CYST REMOVED (NECK) AGE 6, 2 back surgery 2004 Past Anesthesia/Blood Transfusion Reactions: No Reported Reaction Past Psychological History: Anxiety Smoking Status: Never smoker Past Alcohol Use History: None Reported Past Drug Use History: None Reported - Past Family History Sister(s) Family Medical History: Cancer Mother Family Medical History: Cancer Additional Family Medical History / Comment(s): addisons disease Father Family Medical History: Cancer, Hypertension General Exam Limitations: no limitations General appearance: alert, in no apparent distress Head exam: Present: atraumatic, normocephalic, normal inspection Eye exam: Present: normal appearance, PERRL, EOMI. Absent: scleral icterus, conjunctival injection, periorbital swelling ENT exam: Present: normal exam, mucous membranes moist Neck exam: Present: normal inspection. Absent: tenderness, meningismus, lymphadenopathy Respiratory exam: Present: normal lung sounds bilaterally. Absent: respiratory distress, wheezes, rales, rhonchi, stridor Cardiovascular Exam: Present: regular rate, normal rhythm, normal heart sounds. Absent: systolic murmur, diastolic murmur, rubs, gallop, clicks GI/Abdominal exam: Present: soft, normal bowel sounds. Absent: distended, tenderness, guarding, rebound, rigid Extremities exam: Present: normal inspection, full ROM, normal capillary refill. Absent: tenderness, pedal edema, joint swelling, calf tenderness Back exam: Present: normal inspection Neurological exam: Present: alert, oriented X3, CN II-XII intact Psychiatric exam: Present: normal affect, normal mood Skin exam: Present: warm, dry, intact, normal color. Absent: rash Course Vital Signs 03/28/17 03/28/17 03/28/17 00:21 01:15 02:00 Temperature 98.2 F Pulse Rate 91 85 87 Respiratory 18 18 16 Rate Blood Pressure 131/60 146/66 146/66 O2 Sat by Pulse 98 92 L 98 Oximetry - Reevaluation(s) Reevaluation #1: 03/28/17 02:44 Patient's symptoms improved Reevaluation #2: 03/28/17 02:44 Blood sugar is improved EKG Findings - EKG Comments: EKG Findings:: EKG shows normal sinus rhythm rate of 85, [place] 150, QRS 76, QTC 449 Medical Decision Making - Medical Decision Making 67. Female to the ER for evaluation. Patient states evaluation regarding weakness. Low blood sugar, will. At this point all symptoms are improved. Patient can be discharged home - Lab Data Result diagrams: 03/28/17 00:45 03/28/17 00:45 Lab Results 03/28/17 03/28/17 03/28/17 Range/Units 00:24 00:45 00:45 WBC 8.6 (3.8-10.6) k/uL RBC 2.50 L (3.80-5.40) m/uL Hgb 7.8 L (11.4-16.0) gm/dL Hct 24.4 L (34.0-46.0) % MCV 97.4 (80.0-100.0) fL MCH 31.3 (25.0-35.0) pg MCHC 32.1 (31.0-37.0) g/dL RDW 16.1 H (11.5-15.5) % Plt Count 156 (150-450) k/uL Neutrophils % 75 % Lymphocytes % 11 % Monocytes % 7 % Eosinophils % 6 % Basophils % 1 % Neutrophils # 6.4 (1.3-7.7) k/uL Lymphocytes # 1.0 (1.0-4.8) k/uL Monocytes # 0.6 (0-1.0) k/uL Eosinophils # 0.5 (0-0.7) k/uL Basophils # 0.1 (0-0.2) k/uL Anisocytosis Slight Macrocytosis Slight PT (9.0-12.0) sec INR (<1.2) APTT (22.0-30.0) sec Sodium (137-145) mmol/L Potassium (3.5-5.1) mmol/L Chloride (98-107) mmol/L Carbon Dioxide (22-30) mmol/L Anion Gap mmol/L BUN (7-17) mg/dL Creatinine (0.52-1.04) mg/dL Est GFR (MDRD) Af Amer (>60 ml/min/1.73 sqM) Est GFR (MDRD) Non-Af (>60 ml/min/1.73 sqM) Glucose (74-99) mg/dL POC Glucose (mg/dL) 178 H (75-99) mg/dL POC Glu Inspector Floor Sub Assembly ID Sara Roth Calcium (8.4-10.2) mg/dL Phosphorus (2.5-4.5) mg/dL Magnesium (1.6-2.3) mg/dL Total Bilirubin (0.2-1.3) mg/dL AST (14-36) U/L ALT (9-52) U/L Alkaline Phosphatase (38-126) U/L Total Creatine Kinase <20 L (30-135) U/L CK-MB (CK-2) 1.4 (0.0-2.4) ng/mL CK-MB (CK-2) Rel Index Troponin I <0.012 (0.000-0.034) ng/mL Total Protein (6.3-8.2) g/dL Albumin (3.5-5.0) g/dL Blood Type Blood Type Recheck Antibody Screen Spec Expiration Date 03/28/17 03/28/17 03/28/17 Range/Units 00:45 00:45 00:45 WBC (3.8-10.6) k/uL RBC (3.80-5.40) m/uL Hgb (11.4-16.0) gm/dL Hct (34.0-46.0) % MCV (80.0-100.0) fL MCH (25.0-35.0) pg MCHC (31.0-37.0) g/dL RDW (11.5-15.5) % Plt Count (150-450) k/uL Neutrophils % % Lymphocytes % % Monocytes % % Eosinophils % % Basophils % % Neutrophils # (1.3-7.7) k/uL Lymphocytes # (1.0-4.8) k/uL Monocytes # (0-1.0) k/uL Eosinophils # (0-0.7) k/uL Basophils # (0-0.2) k/uL Anisocytosis Macrocytosis PT 9.7 (9.0-12.0) sec INR 0.9 (<1.2) APTT 21.8 L (22.0-30.0) sec Sodium 144 (137-145) mmol/L Potassium 3.9 (3.5-5.1) mmol/L Chloride 104 (98-107) mmol/L Carbon Dioxide 32 H (22-30) mmol/L Anion Gap 8 mmol/L BUN 68 H (7-17) mg/dL Creatinine 1.90 H (0.52-1.04) mg/dL Est GFR (MDRD) Af Amer 32 (>60 ml/min/1.73 sqM) Est GFR (MDRD) Non-Af 27 (>60 ml/min/1.73 sqM) Glucose 72 L (74-99) mg/dL POC Glucose (mg/dL) (75-99) mg/dL POC Glu Inspector Floor Sub Assembly ID Calcium 9.0 (8.4-10.2) mg/dL Phosphorus 3.3 (2.5-4.5) mg/dL Magnesium 1.9 (1.6-2.3) mg/dL Total Bilirubin 0.4 (0.2-1.3) mg/dL AST 18 (14-36) U/L ALT 25 (9-52) U/L Alkaline Phosphatase 111 (38-126) U/L Total Creatine Kinase (30-135) U/L CK-MB (CK-2) (0.0-2.4) ng/mL CK-MB (CK-2) Rel Index Troponin I (0.000-0.034) ng/mL Total Protein 5.3 L (6.3-8.2) g/dL Albumin 2.9 L (3.5-5.0) g/dL Blood Type O Positive Blood Type Recheck No Antibody Screen NEGATIVE Spec Expiration Date 03/31/2017 - 2344 Disposition Clinical Impression: Dehydration, Weakness Disposition: HOME SELF-CARE Condition: Good Instructions: Weakness (ED) Referrals: Fay Lerner MD [Primary Care Provider] - 1-2 days
[2017-03-28] MEDS ORDERED: SODIUM CHLORIDE 0.9% 1,000 ML IV STA (00:54)
[2017-03-28 01:05] LABS: Anisocytosis Slight; Basophils # (A) 0.1 k/uL (0-0.2); Basophils % (A) 1 %; CH 31.8; CHCM 32.9; Eosinophils # (A) 0.5 k/uL (0-0.7); Eosinophils % (A) 6 %; HCT 24.4 % (34.0-46.0); HGB 7.8 gm/dL (11.4-16.0); Luc # (Auto) 0.09; Luc % (Auto) 1; Lymphocytes % (A) 11 %; MCH 31.3 pg (25.0-35.0); MCHC 32.1 g/dL (31.0-37.0); MCV 97.4 fL (80.0-100.0); Macrocytosis Slight; Mean Platelet Volume 8.4; Monocytes # (A) 0.6 k/uL (0-1.0); Monocytes % (A) 7 %; Neutrophils # (A) 6.4 k/uL (1.3-7.7); Neutrophils % (A) 75 %; RDW 16.1 % (11.5-15.5); WBC 8.6 k/uL (3.8-10.6); WBC (Perox) 8.73
[2017-03-28] MEDS ORDERED: ONDANSETRON 4 MG/2 ML VIAL IVP STA (01:12)
[2017-03-28] MEDS ORDERED: MORPHINE SULFATE 4 MG/ML SYRINGE IVP STA (01:13)
[2017-03-28] MEDS ORDERED: PANTOPRAZOLE 40 MG/10 ML VIAL IVP STA (01:13)
[2017-03-28] MEDS ORDERED: DEXTROSE 5%-0.45% NACL 1,000 ML IV ONE (01:13)
[2017-03-28 01:16] LABS: Magnesium 1.9 mg/dL (1.6-2.3); Phosphorous 3.3 mg/dL (2.5-4.5); Potassium 3.9 mmol/L (3.5-5.1); Total Bilirubin 0.4 mg/dL (0.2-1.3); Total Protein 5.3 g/dL (6.3-8.2)
[2017-03-28 01:25] LABS: Creatine Kinase <20 U/L (30-135)
[2017-03-28 01:38] LABS: Creatine Kinase MB 1.4 ng/mL (0.0-2.4); Troponin I <0.012 ng/mL (0.000-0.034)
[2017-03-28 01:55] LABS: INR 0.9 (<1.2); Prothrombin Time 9.7 sec (9.0-12.0)
[2017-03-28 02:21] LABS: Partial Thromboplastin Time 21.8 sec (22.0-30.0)
[2017-03-28 02:35] VITALS: RESP 16
[2017-03-28 04:18] LABS: Glucose,Whole Blood 64 mg/dL (75-99)
[2017-03-28 04:47] LABS: Glucose,Whole Blood 119 mg/dL (75-99)
[2017-03-28 05:06] VITALS: BP 139/63; PULSE 92; TEMP 98
== END 2017-03-28 05:06 | disposition home or self-care (01) ==
LOC: EC 00:12
DX: E86.0 Dehydration (principal); R53.1 Weakness; E78.5 Hyperlipidemia, unspecified; E07.9 Disorder of thyroid, unspecified; M06.9 Rheumatoid arthritis, unspecified; D64.9 Anemia, unspecified; Z53.8 Procedure and treatment not carried out for other reasons; Z88.2 Allergy status to sulfonamides; Z88.5 Allergy status to narcotic agent; Z91.048 Other nonmedicinal substance allergy status; Z79.84 Long term (current) use of oral hypoglycemic drugs; Z79.52 Long term (current) use of systemic steroids; Z79.01 Long term (current) use of anticoagulants; Z79.82 Long term (current) use of aspirin; Z79.899 Other long term (current) drug therapy
CPT/HCPCS: 36415; 93005; 86900; 86901; 80053; 82550; 82553; 83735; 84100; 84484; 85025; 85610; 85730; 86850; 99285; 96374; 96375 ×2; 96361 ×3; J2270; J2405; C9113

== ENCOUNTER 2017-03-28 14:05 | Inpatient (IN) | payer MEDICARE, BC ==
[2017-03-28] MEDS ORDERED: ONDANSETRON 4 MG/2 ML VIAL IVP STA (15:11)
[2017-03-28] MEDS ORDERED: IBUPROFEN 600 MG TAB PO STA (15:11)
[2017-03-28] MEDS ORDERED: ACETAMINOPHEN TAB 500 MG TAB PO STA (15:11)
--- NOTE | 2017-03-28 15:15 | ED ---
General Adult HPI - General Chief complaint: Nausea/Vomiting/Diarrhea Stated complaint: Weakness Time Seen by Provider: 03/28/17 14:30 Source: patient, RN notes reviewed Mode of arrival: wheelchair Limitations: no limitations - History of Present Illness Initial comments: This is a 67-year-old female who presents to the emergency department complaining of feeling nauseated and weak. She states she also is very cold. Patient states she was here this morning and was discharged home. Patient denies any headache patient denies numbness or focal weakness. Patient denies shortness of breath difficulty breathing or cough. Patient denies having a fever. Patient denies chest pain or palpitations. Patient denies abdominal pain. Patient denies any vomiting or diarrhea but she is nauseous. Patient denies dysuria hematuria urinary frequency. - Related Data Home Medications Medication Instructions Recorded Confirmed Omeprazole [PriLOSEC] 20 mg PO BID 02/20/14 03/28/17 predniSONE 10 mg PO DAILY 02/20/14 03/28/17 Cyanocobalamin [Vitamin B-12] 2,500 mcg PO DAILY 08/19/14 03/28/17 Ferrous Sulfate [Iron (65 MG 325 mg PO HS 08/19/14 03/28/17 Elemental)] Calcitriol 0.25 mcg PO DAILY 01/07/15 03/28/17 Liothyronine Sodium [Cytomel] 5 mcg PO DAILY 01/07/15 03/28/17 ALPRAZolam [Xanax] 0.25 mg PO BID PRN 09/02/16 03/28/17 Gabapentin [Neurontin] 100 mg PO TID 09/02/16 03/28/17 Magnesium 200 mg PO HS 09/02/16 03/28/17 Morphine Sulfate ER [Ms Contin] 15 mg PO BID 09/02/16 03/28/17 Repaglinide [Prandin] 1 mg PO QAM 09/24/16 03/28/17 Repaglinide [Prandin] 2 mg PO DAILY@1200 09/24/16 03/28/17 HYDROcodone/APAP 10-325MG [[place] 1 tab PO Q4HR PRN 09/25/16 03/28/17 10-325] hydrALAZINE HCL [Apresoline] 50 mg PO TID 12/03/16 03/28/17 Carvedilol [Coreg] 25 mg PO BID 12/25/16 03/28/17 Isosorbide Mononitrate ER [Imdur] 30 mg PO QAM 01/17/17 03/28/17 Aspirin [Adult Low Dose Aspirin EC] 81 mg PO DAILY 02/27/17 03/28/17 Furosemide [Lasix] 40 mg PO DAILY 03/06/17 03/28/17 Glimepiride [Amaryl] 1 mg PO [id number] 03/28/17 03/28/17 Sodium Bicarbonate Tab 650 mg PO DAILY 03/28/17 03/28/17 Previous Rx's Medication Instructions Recorded Ondansetron Odt [Zofran ODT] 4 mg PO Q8HR PRN #15 tab 01/04/15 Levothyroxine Sodium [Synthroid] 25 mcg PO DAILY@0630 tab 01/12/15 Atorvastatin [Lipitor] 40 mg PO HS #30 tab 12/09/16 Nitroglycerin Sl Tabs [Nitrostat] 0.4 mg SUBLINGUAL Q5M PRN #25 tab 12/09/16 Allergies Allergy/AdvReac Type Severity Reaction Status Date / Time codeine Allergy Rash/Hives Verified 03/28/17 14:43 Sulfa (Sulfonamide Allergy Rash/Hives Verified 03/28/17 14:43 Antibiotics) gold Allergy Unknown Uncoded 03/28/17 00:21 Review of Systems ROS Statement: Those systems with pertinent positive or pertinent negative responses have been documented in the HPI. ROS Other: All systems not noted in ROS Statement are negative. Past Medical History Past Medical History: Hyperlipidemia, Renal Disease, Thyroid Disorder Additional Past Medical History / Comment(s): low vitamin d levels which caused renal deficiency, parathyroid overactive related to low vit d levels, chronic prednisone secondary to RA followed by Dr. Marlow, ANEMIA,COMPRESSION FX L1, PAST FALL. of lithiasis, Csection, gall bladder History of Any Multi-Drug Resistant Organisms: C-DIFF Past Surgical History: Orthopedic Surgery Additional Past Surgical History / Comment(s): right knee TKA 2, carpel tunnel , CYST REMOVED (NECK) AGE 6, 2 back surgery 2005 Past Anesthesia/Blood Transfusion Reactions: No Reported Reaction Past Psychological History: Anxiety Smoking Status: Never smoker Past Alcohol Use History: None Reported Past Drug Use History: None Reported - Past Family History Sister(s) Family Medical History: Cancer Mother Family Medical History: Cancer Additional Family Medical History / Comment(s): addisons disease Father Family Medical History: Cancer, Hypertension General Exam - General Exam Comments Initial Comments: GENERAL: Patient is well-developed and well-nourished. Patient is nontoxic and well- hydrated and is in moderate distress. ENT: Neck is soft and supple. No significant lymphadenopathy is noted. Oropharynx is clear. Moist mucous membranes. Neck has full range of motion without eliciting any pain. EYES: The sclera were anicteric and conjunctiva were pink and moist. Extraocular movements were intact and pupils were equal round and reactive to light. Eyelids were unremarkable. PULMONARY: Unlabored respirations. Good breath sounds bilaterally. No audible rales rhonchi or wheezing was noted. CARDIOVASCULAR: There is a regular rate and rhythm without any murmurs gallops or rubs. ABDOMEN: Soft and nontender with normal bowel sounds. No palpable organomegaly was noted. There is no palpable pulsatile mass. SKIN: Skin is clear with no lesions or rashes and otherwise unremarkable. NEUROLOGIC: Patient is alert and oriented x3. Cranial nerves II through XII are grossly intact. Motor and sensory are also intact. Normal speech, volume and content. Symmetrical smile. MUSCULOSKELETAL: Normal extremities with adequate strength and full range of motion. No lower extremity swelling or edema. No calf tenderness. LYMPHATICS: No significant lymphadenopathy is noted PSYCHIATRIC: Normal psychiatric evaluation. Limitations: no limitations Course Vital Signs 03/28/17 03/28/17 03/28/17 14:29 15:16 15:42 Temperature 98.3 F 100.3 F H Pulse Rate 106 H 101 H Respiratory 16 18 Rate Blood Pressure 133/63 139/63 O2 Sat by Pulse 89 L 87 L Oximetry 03/28/17 03/28/17 03/28/17 16:28 17:00 19:00 Temperature 99.1 F Pulse Rate 86 82 80 Respiratory 16 141 H 20 Rate Blood Pressure 111/55 118/56 128/60 O2 Sat by Pulse 98 96 99 Oximetry 03/28/17 19:28 Temperature 97.7 F Pulse Rate 97 Respiratory 20 Rate Blood Pressure 130/59 O2 Sat by Pulse 97 Oximetry Medical Decision Making - Medical Decision Making Patient's urine shows a urinary tract infection. I started the patient on Levaquin. Patient had some pulmonary vascular congestion. I give the patient some Lasix. I spoke with Dr. Garcia admitted the patient I wrote admitting orders. - Lab Data Result diagrams: 03/28/17 15:35 03/28/17 15:35 Lab Results 03/28/17 03/28/17 03/28/17 Range/Units 15:35 15:35 15:35 WBC 11.5 H (3.8-10.6) k/uL RBC 2.60 L (3.80-5.40) m/uL Hgb 8.0 L (11.4-16.0) gm/dL Hct 25.2 L (34.0-46.0) % MCV 97.0 (80.0-100.0) fL MCH 30.9 (25.0-35.0) pg MCHC 31.8 (31.0-37.0) g/dL RDW 16.2 H (11.5-15.5) % Plt Count 167 (150-450) k/uL Neutrophils % 77 % Lymphocytes % 9 % Monocytes % 7 % Eosinophils % 5 % Basophils % 0 % Neutrophils # 8.9 H (1.3-7.7) k/uL Lymphocytes # 1.1 (1.0-4.8) k/uL Monocytes # 0.8 (0-1.0) k/uL Eosinophils # 0.6 (0-0.7) k/uL Basophils # 0.0 (0-0.2) k/uL Anisocytosis Slight D-Dimer (<0.60) mg/L FEU Sodium 142 (137-145) mmol/L Potassium 4.2 (3.5-5.1) mmol/L Chloride 106 (98-107) mmol/L Carbon Dioxide 30 (22-30) mmol/L Anion Gap 6 mmol/L BUN 63 H (7-17) mg/dL Creatinine 1.80 H (0.52-1.04) mg/dL Est GFR (MDRD) Af Amer 34 (>60 ml/min/1.73 sqM) Est GFR (MDRD) Non-Af 28 (>60 ml/min/1.73 sqM) Glucose 91 (74-99) mg/dL POC Glucose (mg/dL) (75-99) mg/dL POC Glu [employer] ID Plasma Lactic Acid Ricci 0.9 (0.7-2.0) mmol/L Calcium 8.6 (8.4-10.2) mg/dL Magnesium 1.9 (1.6-2.3) mg/dL Total Bilirubin 0.4 (0.2-1.3) mg/dL AST 18 (14-36) U/L ALT 24 (9-52) U/L Alkaline Phosphatase 92 (38-126) U/L NT-Pro-B Natriuret Pep pg/mL Total Protein 5.0 L (6.3-8.2) g/dL Albumin 2.7 L (3.5-5.0) g/dL Urine Color Urine Appearance (Clear) Urine pH (5.0-8.0) Ur Specific Lyons (1.001-1.035) Urine Protein (Negative) Urine Glucose (UA) (Negative) Urine Ketones (Negative) Urine Blood (Negative) Urine Nitrite (Negative) Urine Bilirubin (Negative) Urine Urobilinogen (<2.0) mg/dL Ur Leukocyte Esterase (Negative) Urine RBC (0-5) /hpf Urine WBC (0-5) /hpf Ur Squamous Epith Cells (0-4) /hpf Amorphous Sediment (None) /hpf Urine Bacteria (None) /hpf Urine Mucus (None) /hpf Influenza Type A RNA (Not Detectd) Influenza Type B (PCR) (Not Detectd) 03/28/17 03/28/17 03/28/17 Range/Units 15:35 15:35 19:30 WBC (3.8-10.6) k/uL RBC (3.80-5.40) m/uL Hgb (11.4-16.0) gm/dL Hct (34.0-46.0) % MCV (80.0-100.0) fL MCH (25.0-35.0) pg MCHC (31.0-37.0) g/dL RDW (11.5-15.5) % Plt Count (150-450) k/uL Neutrophils % % Lymphocytes % % Monocytes % % Eosinophils % % Basophils % % Neutrophils # (1.3-7.7) k/uL Lymphocytes # (1.0-4.8) k/uL Monocytes # (0-1.0) k/uL Eosinophils # (0-0.7) k/uL Basophils # (0-0.2) k/uL Anisocytosis D-Dimer 2.44 H (<0.60) mg/L FEU Sodium (137-145) mmol/L Potassium (3.5-5.1) mmol/L Chloride (98-107) mmol/L Carbon Dioxide (22-30) mmol/L Anion Gap mmol/L BUN (7-17) mg/dL Creatinine (0.52-1.04) mg/dL Est GFR (MDRD) Af Amer (>60 ml/min/1.73 sqM) Est GFR (MDRD) Non-Af (>60 ml/min/1.73 sqM) Glucose (74-99) mg/dL POC Glucose (mg/dL) (75-99) mg/dL POC Glu [employer] Plasma Lactic Acid Ricci (0.7-2.0) mmol/L Calcium (8.4-10.2) mg/dL Magnesium (1.6-2.3) mg/dL Total Bilirubin (0.2-1.3) mg/dL AST (14-36) U/L ALT (9-52) U/L Alkaline Phosphatase (38-126) U/L NT-Pro-B Natriuret Pep 3430 pg/mL Total Protein (6.3-8.2) g/dL Albumin (3.5-5.0) g/dL Urine Color Yellow Urine Appearance Cloudy H (Clear) Urine pH 5.5 (5.0-8.0) Ur Specific Ly[place] 1.011 (1.001-1.035) Urine Protein 1+ H (Negative) Urine Glucose (UA) Negative (Negative) Urine Ketones Negative (Negative) Urine Blood Negative (Negative) Urine Nitrite Negative (Negative) Urine Bilirubin Negative (Negative) Urine Urobilinogen <2.0 (<2.0) mg/dL Ur Leukocyte Esterase Large H (Negative) Urine RBC 1 (0-5) /hpf Urine WBC 65 H (0-5) /hpf Ur Squamous Epith Cells 9 H (0-4) /hpf Amorphous Sediment Rare H (None) /hpf Urine Bacteria Occasional H (None) /hpf Urine Mucus Rare H (None) /hpf Influenza Type A RNA (Not Detectd) Influenza Type B (PCR) (Not Detectd) 03/28/17 03/28/17 Range/Units 19:59 20:37 WBC (3.8-10.6) k/uL RBC (3.80-5.40) m/uL Hgb (11.4-16.0) gm/dL Hct (34.0-46.0) % MCV (80.0-100.0) fL MCH (25.0-35.0) pg MCHC (31.0-37.0) g/dL RDW (11.5-15.5) % Plt Count (150-450) k/uL Neutrophils % % Lymphocytes % % Monocytes % % Eosinophils % % Basophils % % Neutrophils # (1.3-7.7) k/uL Lymphocytes # (1.0-4.8) k/uL Monocytes # (0-1.0) k/uL Eosinophils # (0-0.7) k/uL Basophils # (0-0.2) k/uL Anisocytosis D-Dimer (<0.60) mg/L FEU Sodium (137-145) mmol/L Potassium (3.5-5.1) mmol/L Chloride (98-107) mmol/L Carbon Dioxide (22-30) mmol/L Anion Gap mmol/L BUN (7-17) mg/dL Creatinine (0.52-1.04) mg/dL Est GFR (MDRD) Af Amer (>60 ml/min/1.73 sqM) Est GFR (MDRD) Non-Af (>60 ml/min/1.73 sqM) Glucose (74-99) mg/dL POC Glucose (mg/dL) 72 L (75-99) mg/dL POC Glu [employer] Alvaro Rima Plasma Lactic Acid Ricci (0.7-2.0) mmol/L Calcium (8.4-10.2) mg/dL Magnesium (1.6-2.3) mg/dL Total Bilirubin (0.2-1.3) mg/dL AST (14-36) U/L ALT (9-52) U/L Alkaline Phosphatase (38-126) U/L NT-Pro-B Natriuret Pep pg/mL Total Protein (6.3-8.2) g/dL Albumin (3.5-5.0) g/dL Urine Color Urine Appearance (Clear) Urine pH (5.0-8.0) Ur Specific [place] (1.001-1.035) Urine Protein (Negative) Urine Glucose (UA) (Negative) Urine Ketones (Negative) Urine Blood (Negative) Urine Nitrite (Negative) Urine Bilirubin (Negative) Urine Urobilinogen (<2.0) mg/dL Ur Leukocyte Esterase (Negative) Urine RBC (0-5) /hpf Urine WBC (0-5) /hpf Ur Squamous Epith Cells (0-4) /hpf Amorphous Sediment (None) /hpf Urine Bacteria (None) /hpf Urine Mucus (None) /hpf Influenza Type A RNA Not Detected (Not Detectd) Influenza Type B (PCR) Not Detected (Not Detectd) Disposition Clinical Impression: Urinary tract infection, Pulmonary edema Disposition: ADMITTED IP TO THIS HOSP Referrals: Fay Lerner MD [Primary Care Provider] - 1-2 days Time of Disposition: 20:43
[2017-03-28 16:02] LABS: Anisocytosis Slight; Basophils % (A) 0 %; CH 31.7; CHCM 32.9; Eosinophils # (A) 0.6 k/uL (0-0.7); Eosinophils % (A) 5 %; HCT 25.2 % (34.0-46.0); HDW 2.77; Luc # (Auto) 0.13; Luc % (Auto) 1; Lymphocytes # (A) 1.1 k/uL (1.0-4.8); Lymphocytes % (A) 9 %; MCH 30.9 pg (25.0-35.0); MCHC 31.8 g/dL (31.0-37.0); Monocytes # (A) 0.8 k/uL (0-1.0); Monocytes % (A) 7 %; Neutrophils # (A) 8.9 k/uL (1.3-7.7); Neutrophils % (A) 77 %; RDW 16.2 % (11.5-15.5); WBC 11.5 k/uL (3.8-10.6); WBC (Perox) 11.66
[2017-03-28 16:09] LABS: Calcium 8.6 mg/dL (8.4-10.2); Magnesium 1.9 mg/dL (1.6-2.3); Potassium 4.2 mmol/L (3.5-5.1); Total Bilirubin 0.4 mg/dL (0.2-1.3)
[2017-03-28] MEDS ORDERED: MORPHINE SULFATE 4 MG/ML SYRINGE IVP STA (16:18)
--- NOTE | 2017-03-28 16:23 | XR ---
EXAMINATION TYPE: XR chest 2V DATE OF EXAM: 03/28/2017 COMPARISON: NONE HISTORY: Shortness of breath TECHNIQUE: Frontal and lateral views of the chest are obtained. FINDINGS: Scattered senescent parenchymal changes noted. Hyperinflation compatible with COPD. No evidence for infiltrate. Improved aeration right lung. No evidence for atelectasis. Heart size is enlarged with pulmonary venous congestion. No evidence for overt failure at this time. Blunting of the left costophrenic angle may reflect small effusion versus pleural thickening. Mediastinal structures are stable and grossly unremarkable. No evidence for hilar prominence. Degenerative changes dorsal spine. IMPRESSION: 1. No evidence for acute pulmonary disease. Cardiomegaly with pulmonary venous congestion. No overt f ailure at this time.
[2017-03-28] MEDS ORDERED: FUROSEMIDE 10 MG/ML 2 ML VIAL IV STA (17:24)
[2017-03-28] MEDS ORDERED: RX INFO: IV CONTRAST WAS GIVEN 1 EACH MISC MISCELLANE PRN (17:25)
--- NOTE | 2017-03-28 18:53 | NM ---
EXAMINATION TYPE: NM pul vent and perfuse DATE OF EXAM: 03/28/2017 COMPARISON: NONE HISTORY: Dyspnea with elevated D-dimer TECHNIQUE: Utilizing inhalation of 71.2 mCi Tc 99m DTPA aerosol and intravenous injection of 5.2 mCi of Tc 99m MAA, ventilation and perfusion images are acquired post injection in multiple projections. FINDINGS: Mildly heterogeneous perfusion and ventilation radiotracer distribution is noted in the lungs, with b ilateral matched scintigraphic defects but without mismatched defects. IMPRESSION: LOW PROBABILITY FOR THE DIAGNOSIS OF PULMONARY EMBOLISM.
[2017-03-28 19:57] LABS: Amorphous Sediment,Urine Rare /hpf; Appearance,Urine Cloudy (Clear); Bacteria,Urine Occasional /hpf; Bilirubin,Urine Negative (Negative); Glucose,Urine (UA) Negative (Negative); Ketones,Urine Negative (Negative); Leukocyte Esterase,Urine Large (Negative); Mucus,Urine Rare /hpf; Nitrite,Urine Negative (Negative); PH, Urine 5.5 (5.0-8.0); Particle Count 2589; Protein,Urine 1+ (Negative); RBC,Urine 1 /hpf (0-5); Specific Gravity,Urine 1.011 (1.001-1.035); Squamous Epithelial Cell,Urine 9 /hpf (0-4); UA Billing (MACRO vs. MICRO) MICRO; Urobilinogen,Urine <2.0 mg/dL (<2.0); WBC,Urine 65 /hpf (0-5)
[2017-03-28] MEDS ORDERED: HYDROcodone/APAP 10-325MG 1 EACH TAB PO ONE (20:35)
[2017-03-28 20:39] LABS: Glucose,Whole Blood 72 mg/dL (75-99)
[2017-03-28] MEDS ORDERED: LEVOFLOXACIN 750MG-D5W PMX 750 MG in DEXTROSE/WATER 1 150ML.BAG IVPB STA (20:41)
[2017-03-28] MEDS ORDERED: ONDANSETRON ODT 4 MG TAB PO PRN (20:47)
[2017-03-28 22:02] LABS: Glucose,Whole Blood 116 mg/dL (75-99)
[2017-03-29] MEDS: MORPHINE SULFATE ER 15 MG TABLET PO SCH ×3 (00:06→22:02)
[2017-03-29] MEDS: ATORVASTATIN 40 MG TAB PO SCH ×2 (00:13→22:00)
[2017-03-29] MEDS: CARVEDILOL 12.5 MG TAB PO SCH ×4 (00:13→17:16)
[2017-03-29] MEDS: ALPRAZolam 0.25 MG TAB PO PRN (00:13)
[2017-03-29] MEDS: HYDROcodone/APAP 10-325MG 1 EACH TAB PO PRN ×3 (00:13→22:01)
[2017-03-29] MEDS: FUROSEMIDE 10 MG/ML 4 ML VIAL IV SCH ×4 (00:14→11:44)
[2017-03-29] MEDS: GABAPENTIN 100 MG CAP PO SCH ×3 (00:20→16:33)
[2017-03-29] MEDS: hydrALAZINE HCL 50 MG TAB PO SCH ×4 (00:20→22:29)
[2017-03-29] MEDS: PANTOPRAZOLE 40 MG TABLET PO SCH ×3 (00:20→17:16)
[2017-03-29 00:33] VITALS: BMI 28.3
[2017-03-29 00:57] LABS: Glucose,Whole Blood 91 mg/dL (75-99)
[2017-03-29 01:55] LABS: Glucose,Whole Blood 98 mg/dL (75-99)
[2017-03-29 01:55] LABS: Glucose,Whole Blood 90 mg/dL (75-99)
[2017-03-29 05:58] LABS: Glucose,Whole Blood 88 mg/dL (75-99)
[2017-03-29] MEDS: LEVOTHYROXINE 25 MCG TAB PO SCH (07:17)
[2017-03-29] MEDS ORDERED: GLIMEPIRIDE 1 MG TAB PO SCH (07:30)
[2017-03-29] MEDS ORDERED: NITROGLYCERIN SL TABS 0.4 MG TAB SUBLINGUAL PRN (08:48)
[2017-03-29] MEDS ORDERED: FUROSEMIDE 40 MG TAB PO SCH (09:00)
[2017-03-29] MEDS: ISOSORBIDE MONONITRATE ER 30 MG TAB.ER.24H PO SCH (09:00)
[2017-03-29] MEDS: predniSONE 10 MG TAB PO SCH (09:14)
[2017-03-29 09:39] LABS: Basophils % (A) 0 %; Luc # (Auto) 0.13; RDW 15.5 % (11.5-15.5)
[2017-03-29 09:40] LABS: CH 31.2; CHCM 33.3; Eosinophils # (A) 0.4 k/uL (0-0.7); Eosinophils % (A) 6 %; HCT 20.3 % (34.0-46.0); HDW 2.89; Luc % (Auto) 2; Lymphocytes # (A) 0.8 k/uL (1.0-4.8); Lymphocytes % (A) 11 %; MCV 94.2 fL (80.0-100.0); Mean Platelet Volume 7.6; Monocytes # (A) 0.5 k/uL (0-1.0); Monocytes % (A) 7 %; Neutrophils # (A) 5.3 k/uL (1.3-7.7); Neutrophils % (A) 74 %; RBC 2.15 m/uL (3.80-5.40); WBC 7.2 k/uL (3.8-10.6); WBC (Perox) 7.23
[2017-03-29 09:43] LABS: HGB 6.9 gm/dL (11.4-16.0)
[2017-03-29] MEDS ORDERED: FUROSEMIDE 10 MG/ML 2 ML VIAL IV ONE (09:56)
[2017-03-29 10:13] LABS: Calcium 7.9 mg/dL (8.4-10.2); Magnesium 1.9 mg/dL (1.6-2.3); Potassium 4.8 mmol/L (3.5-5.1); Total Bilirubin 0.2 mg/dL (0.2-1.3); Total Protein 4.4 g/dL (6.3-8.2)
[2017-03-29] MEDS: ASPIRIN 81 MG PO SCH (10:35)
[2017-03-29] MEDS: LIOTHYRONINE SODIUM 5 MCG TAB PO SCH (10:48)
[2017-03-29] MEDS: REPAGLINIDE 1 MG TAB PO SCH ×3 (10:49→12:11)
[2017-03-29] MEDS: SODIUM BICARBONATE TAB 650 MG TAB PO SCH (10:49)
[2017-03-29] MEDS: CALCITRIOL 0.25 MCG CAP PO SCH (10:49)
[2017-03-29 11:35] LABS: Glucose,Whole Blood 124 mg/dL (75-99)
[2017-03-29] MEDS: CYANOCOBALAMIN 500 MCG TAB PO SCH (12:10)
--- NOTE | 2017-03-29 13:42 | P.HPIM ---
History of Present Illness H&P Date: 03/29/17 Chief Complaint: Weakness 67 years old female patient of Dr. Lerner with past medical history of rheumatoid arthritis, hyperlipidemia, chronic anemia, CTD 3, chronic pain syndrome, hypothyroidism, history of coronary artery disease, hypertension, chronic neuropathy recurrent lower back pain with recent admission for NSTEMI and anemia with hemoglobin of 6 status post transfusions in November 2016. Patient underwent endoscopy and colonoscopy in January 2017 did suggest chronic gastritis and esophagitis and adenoma was present on the colonoscopy. Patient presented to the ED complaining of feeling nauseated and weak on 2016. She presented to ED initially at 11 pm yesterday for low blood sugar and feeling weak. Once her blood sugar corrected she went back home but started having nausea, associated with weakness and feeling cold. According to patient she was recently started on glimepiride for her diabetes and Prandin was stopped. Patient checked her blood sugar it was 55 and accidentally took her glimepiride despite being hypoglycemic. She felt extremely weak and came back to ED. Patient denies any fever, chest pain, shortness of breath, change in vision, dizziness, weakness in her extremities. She denies any hemoptysis or melena. Patient denies any burning micturition, frequency of urination, abdominal pain, flank pain or any change in mental status. Since patient had leukocytosis with urinalysis suggesting infection patient was started on Levaquin and admitted for UTI and hypoglycemia. Some pulmonary vascular congestion seen on chest x-ray and 1 dose of Lasix was given. Patient admitted for further management of UTI . Review of Systems Constitutional: Reports chills, Reports lethargy, Reports malaise, Reports night sweats, Reports weakness, Denies anorexia, Denies fever, Denies poor appetite, Denies weight loss Eyes: denies blurred vision, denies decreased vision, denies pain, denies loss of peripheral vision, denies loss of vision Ears: deny: decreased hearing, ear discharge, earache Ears, nose, mouth and throat: Denies ant. neck pain, Denies epistaxis, Denies headache, Denies hoarseness, Denies neck fullness/pressure, Denies nose pain, Denies post-nasal drip, Denies swelling in mouth, Denies sore throat Cardiovascular: Reports leg edema, Denies chest pain, Denies dyspnea on exertion , Denies high blood pressure, Denies lightheadedness, Denies orthopnea, Denies palpitations, Denies rapid heart beat, Denies shortness of breath, Denies syncope Respiratory: Denies cough, Denies dyspnea, Denies hemoptysis, Denies wheezing Gastrointestinal: Reports nausea, Denies abdominal pain, Denies bloating, Denies BRBPR, Denies change in bowel habits, Denies coffee ground emesis, Denies constipation, Denies dyspepsia, Denies early satiety, Denies hematemesis , Denies melena, Denies vomiting Musculoskeletal: Reports arm numbness/tingling (burning in the left shoulder), Reports gait dysfunction (wheelchair bound), Reports limitation of motion, Reports low back pain, Reports muscle weakness, Denies frequent falls, Denies leg numbness/tingling, Denies muscle cramps, Denies neck stiffness, Denies shooting arm pain Musculoskeletal: right: wrist stiffness, absent: ankle pain, ankle swelling, elbow pain, foot pain, hand pain, hand swelling, hip stiffness, hip swelling, knee pain, wrist swelling Integumentary: Reports dryness, Denies color changes, Denies lesions, Denies pruritus, Denies rash, Denies sores Neurological: Reports gait dysfunction, Reports weakness, Denies change in speech, Denies confusion, Denies double vision, Denies headaches, Denies loss of vision, Denies memory loss, Denies motor disturbance, Denies numbness, Denies paralysis, Denies paresthesias, Denies seizures, Denies sensory deficit, Denies tingling, Denies transient paralysis, Denies vertigo, Denies visual changes Psychiatric: Denies anxiety, Denies disorientation, Denies hopelessness, Denies insomnia Endocrine: Reports fatigue, Denies heat intolerance, Denies high blood sugars, Denies palpitations, Denies weight change Hematologic/Lymphatic: Denies easy bleeding, Denies easy bruising, Denies lymphadenopathy Past Medical History Past Medical History: Diabetes Mellitus, Hyperlipidemia, Hypertension, Renal Disease, Rheumatoid Arthritis (RA), Thyroid Disorder Additional Past Medical History / Comment(s): low vitamin d levels which caused renal deficiency, parathyroid overactive related to low vit d levels, chronic prednisone secondary to RA followed by Dr. Marlow, ANEMIA,COMPRESSION FX L1, PAST FALL. of lithiasis, Csection, gall bladder History of Any Multi-Drug Resistant Organisms: C-DIFF Date of last positivie culture/infection: 2014 MDRO Source:: C-DIFF Past Surgical History: Back Surgery, Cholecystectomy, Orthopedic Surgery Additional Past Surgical History / Comment(s): right knee TKA 2, carpel tunnel , CYST REMOVED (NECK) AGE 6, 2 back surgery 2005 Past Anesthesia/Blood Transfusion Reactions: No Reported Reaction Past Psychological History: Anxiety Smoking Status: Never smoker Past Alcohol Use History: None Reported Past Drug Use History: None Reported - Past Family History Sister(s) Family Medical History: Cancer (leukemia in one sister, 2nd sister with ovarian cancer ), Diabetes Mellitus (2 sisters wi th DM ) Additional Family Medical History / Comment(s): 11 siblings, 6 left Mother Family Medical History: Cancer, Diabetes Mellitus Additional Family Medical History / Comment(s): addisons disease Father Family Medical History: Cancer (throat cancer ), Hypertension Medications and Allergies Home Medications Medication Instructions Recorded Confirmed Type Omeprazole [PriLOSEC] 20 mg PO BID 02/20/14 03/28/17 History predniSONE 10 mg PO DAILY 02/20/14 03/28/17 History Cyanocobalamin [Vitamin B-12] 2,500 mcg PO DAILY 08/19/14 03/28/17 History Ferrous Sulfate [Iron (65 MG 325 mg PO HS 08/19/14 03/28/17 History Elemental)] Ondansetron Odt [Zofran ODT] 4 mg PO Q8HR PRN #15 tab 01/04/15 03/28/17 Rx Calcitriol 0.25 mcg PO DAILY 01/07/15 03/28/17 History Liothyronine Sodium [Cytomel] 5 mcg PO DAILY 01/07/15 03/28/17 History Levothyroxine Sodium [Synthroid] 25 mcg PO DAILY@0630 tab 01/12/15 03/28/17 Rx ALPRAZolam [Xanax] 0.25 mg PO BID PRN 09/02/16 03/28/17 History Gabapentin [Neurontin] 100 mg PO TID 09/02/16 03/28/17 History Magnesium 200 mg PO HS 09/02/16 03/28/17 History Morphine Sulfate ER [Ms Contin] 15 mg PO BID 09/02/16 03/28/17 History HYDROcodone/APAP 10-325MG [[place] 1 tab PO Q4HR PRN 09/25/16 03/28/17 History 10-325] hydrALAZINE HCL [Apresoline] 50 mg PO TID 12/03/16 03/28/17 History Atorvastatin [Lipitor] 40 mg PO HS #30 tab 12/09/16 03/28/17 Rx Nitroglycerin Sl Tabs [Nitrostat] 0.4 mg SUBLINGUAL Q5M PRN #25 tab 12/09/16 Rx Carvedilol [Coreg] 25 mg PO BID 12/25/16 03/28/17 History Isosorbide Mononitrate ER [Imdur] 30 mg PO QAM 01/17/17 03/28/17 History Aspirin [Adult Low Dose Aspirin EC] 81 mg PO DAILY 02/27/17 03/28/17 History Furosemide [Lasix] 40 mg PO DAILY 03/06/17 03/28/17 History Glimepiride [Amaryl] 1 mg PO AC-BRKFST 03/28/17 03/28/17 History Sodium Bicarbonate Tab 650 mg PO DAILY 03/28/17 03/28/17 History Allergies Allergy/AdvReac Type Severity Reaction Status Date / Time codeine Allergy Rash/Hives Verified 03/28/17 14:43 Sulfa (Sulfonamide Allergy Rash/Hives Verified 03/28/17 14:43 Antibiotics) gold Allergy Unknown Uncoded 03/28/17 00:21 Physical Exam Vitals: Vital Signs Temp Pulse Pulse Resp BP BP Pulse Ox 03/29/17 04:00 97.7 F 82 18 110/62 100 03/29/17 00:00 97.7 F 82 18 108/40 97 03/28/17 23:23 97.3 F L 80 16 111/53 98 03/28/17 21:58 97.7 F 82 18 108/40 97 03/28/17 20:43 83 16 106/53 99 03/28/17 19:28 97.7 F 97 20 130/59 97 03/28/17 19:00 80 20 128/60 99 03/28/17 17:00 82 141 H 118/56 96 03/28/17 16:28 99.1 F 86 16 111/55 98 03/28/17 15:42 101 H 18 139/63 87 L 03/28/17 15:16 100.3 F H 03/28/17 14:29 98.3 F 106 H 16 133/63 89 L Intake and Output 03/28/17 03/29/17 03/29/17 22:59 06:59 14:59 Other: Voiding Method Bedpan # Voids 0 Weight 74.843 kg - Constitutional General appearance: average body habitus, cooperative, no acute distress - EENT Eyes: EOMI, PERRLA, no photophobia, no ptosis ENT: normal oropharynx Ears: negative: bulging (emergency examination is) - Neck Neck: no lymphadenopathy, no rigidity Carotids: bilateral: upstroke normal Thyroid: bilateral: normal size (getting used to it will) - Respiratory Respiratory: bilateral: CTA, negative: diminished (likely), dullness, wheezing - Cardiovascular Heart sounds: normal: S1, S2 ( ) Abnormal Heart Sounds: no systolic murmur, no diastolic murmur ankle Peripheral Edema: bilateral: 1+ (pitting ) radial pulse Peripheral Pulses: bilateral: Diminished - Gastrointestinal General gastrointestinal: no decreased bowel sounds, no distended, normal bowel sounds, soft, no tenderness - Neurologic Neurologic: CNII-XII intact (no focal deficits ) - Musculoskeletal Musculoskeletal: generalized weakness (wheelchair bound ) - Psychiatric Psychiatric: A&O x's 3 Results CBC & Chem 7: 03/29/17 09:22 03/29/17 09:22 Labs: Abnormal Lab Results - Last 24 Hours (Table) 03/28/17 03/28/17 03/28/17 Range/Units 15:35 15:35 15:35 WBC 11.5 H (3.8-10.6) k/uL RBC 2.60 L (3.80-5.40) m/uL Hgb 8.0 L (11.4-16.0) gm/dL Hct 25.2 L (34.0-46.0) % RDW 16.2 H (11.5-15.5) % Neutrophils # 8.9 H (1.3-7.7) k/uL D-Dimer 2.44 H (<0.60) mg/L FEU BUN 63 H (7-17) mg/dL Creatinine 1.80 H (0.52-1.04) mg/dL POC Glucose (mg/dL) (75-99) mg/dL Total Protein 5.0 L (6.3-8.2) g/dL Albumin 2.7 L (3.5-5.0) g/dL Urine Appearance (Clear) Urine Protein (Negative) Ur Leukocyte Esterase (Negative) Urine WBC (0-5) /hpf Ur Squamous Epith Cells (0-4) /hpf Amorphous Sediment (None) /hpf Urine Bacteria (None) /hpf Urine Mucus (None) /hpf 03/28/17 03/28/17 03/28/17 Range/Units 19:30 20:37 22:00 WBC (3.8-10.6) k/uL RBC (3.80-5.40) m/uL Hgb (11.4-16.0) gm/dL Hct (34.0-46.0) % RDW (11.5-15.5) % Neutrophils # (1.3-7.7) k/uL D-Dimer (<0.60) mg/L FEU BUN (7-17) mg/dL Creatinine (0.52-1.04) mg/dL POC Glucose (mg/dL) 72 L 116 H (75-99) mg/dL Total Protein (6.3-8.2) g/dL Albumin (3.5-5.0) g/dL Urine Appearance Cloudy H (Clear) Urine Protein 1+ H (Negative) Ur Leukocyte Esterase Large H (Negative) Urine WBC 65 H (0-5) /hpf Ur Squamous Epith Cells 9 H (0-4) /hpf Amorphous Sediment Rare H (None) /hpf Urine Bacteria Occasional H (None) /hpf Urine Mucus Rare H (None) /hpf Thrombosis Risk Factor Assmnt - DVT/VTE Prophylaxis DVT/VTE Prophylaxis: Mechanical Prophylaxis ordered - Choose All That Apply Each Factor Represents 1 point: Obesity (BMI >25), Swollen legs (current) Each Risk Factor Represents 2 Points: Age 61-74 years Thrombosis Risk Factor Assessment Total Risk Factor Score: 4 Thrombosis Risk Factor Assessment Level: Moderate Risk Assessment and Plan Plan: This case is 67 years old female who presented with low blood sugar and weakness with left finding suggestive of acute urinary tract infection. Patient also have some vascular congestion on the chest x-ray associated with lower extremity edema with increased BNP suggesting of acute on chronic CHF exacerbation. #1 general leg weakness with low blood sugar - Blood sugar on admission 55, currently stable - Patient's new medication glimepiride on hold as can cause hypoglycemia - Patient also has a urinary infection which can also contribute to hypoglycemia , will continue Levaquin 750 every 48 hours Ms. her creatinine clearance - Serum cortisol level ordered as patient was hypotensive #2 acute CHF exacerbation - Patient has pulmonary vascular congestion with lower extremity 1+ pedal edema with elevated BNP suggestive of CHF exacerbation - Last echo suggestive of concentric hyper-trophy with normal ejection fraction and mild valvular abnormalities in 11/22 - Continue Lasix 40 IV daily - Monitor I/o - daily weights - Hydralazine and Imdur held as patient's blood pressure is soft #3 acute on chronic iron deficiency anemia - Patient has history of anemia of chronic disease secondary to inflammation from rheumatoid arthritis and has received blood transfusion in the past admissions - Hemoglobin this morning 6.9 status post one unit PRBC with 20 IV Lasix - Continue to monitor hemoglobin daily - Patient underwent endoscopy in January 2017 positive for chronic gastritis and esophagitis. Since patient is on chronic steroids for rheumatoid arthritis, it is possible patient has continues to have subtle GI bleed - No epigastric tenderness on examination - Fecal occult ordered - Dr. Camacho consult placed for evaluation for GI bleed - Continue Protonix 40 mg by mouth twice a day #4 Stage III chronic kidney disease - Slightly elevated creatinine from baseline - Continue to Monitor BMP #5 Rheumatoid arthritis: - Has been seen Dr. morgan On prednisone only with no biological agent at this point. Patient has tried multiple biological agents but failed the treatment because of side effects. #6 chronic pain syndrome: - Patient has been on MS Contin 15 mg twice a day along with [place] 10/325 g every 4 hours as needed. #7 hypothyroidism: Remain on Cytomel and Synthroid together. #8 Diabetes: -Patient was on Prandin which was discontinued recently - Hold Glimipiride - ISS #9 history of CAD: Has been seen cardiology regular basis. #10 hypertension: Hold hydralazine 50 mg 3 times a day and imdur - Continue Coreg 25 g twice a day. # 11 fluid overload: Has been on furosemide 40 mg 5 days a week. #12 hyperlipidemia: Remain on Zocor 40 mg daily. #13 chronic neuropathy: Mostly idiopathic peripheral neuropathy and diabetic neuropathy as well to continue Neurontin 100 mg 3 times a day. 14 GI prophylaxis: Continue home Prilosec 20 mg twice a day as patient is on steroid 15 DVT prophylaxis: Not on any anticoagulation but will keep patient on knee- high CHAUNCEY hose and Venodyne boots. CODE STATUS: Full code. Expectation from this admission: Patient be in the hospital for more than 2 nights.
[2017-03-29] MEDS ORDERED: VANCOMYCIN TROUGH DUE 1 EACH MISC MISCELLANE ONE (16:20)
[2017-03-29] MEDS ORDERED: IV VANCOMYCIN PER PHARMACY 1 EACH MISC MISCELLANE PRN (16:20)
[2017-03-29] MEDS ORDERED: VANCOMYCIN 1,750 MG in SODIUM CHLORIDE 0.9% 250 ML IVPB STA (16:27)
[2017-03-29 16:48] LABS: Glucose,Whole Blood 200 mg/dL (75-99)
--- NOTE | 2017-03-29 17:56 | P.GSCN ---
History of Present Illness Consult date: 03/29/17 Reason for Consult: GI bleed History of present illness: Patient hospitalized with complaints of weakness. She was found to be anemic with a hemoglobin of 8. Today's hemoglobin 6.9. She has had a workup including upper endoscopy, lower endoscopy, and capsule endoscopy recently. She states that no definite evidence of bleeding was seen at those times. She follows with Dr. dunham from hematology who is evaluating her chronic anemia. She denies rectal bleeding or melena. No hematemesis. Denies abdominal pain. Currently tolerating a regular diet. Occult stool pending. Review of Systems The patient denies any acute changes in vision or hearing, no dysphagia or odynophagia, no chest pain or shortness of breath, no dysuria or hematuria, no headache, no runny nose, no rectal bleeding or melena, no unexplained weight loss Past Medical History Past Medical History: Diabetes Mellitus, Hyperlipidemia, Hypertension, Renal Disease, Rheumatoid Arthritis (RA), Thyroid Disorder Additional Past Medical History / Comment(s): low vitamin d levels which caused renal deficiency, parathyroid overactive related to low vit d levels, chronic prednisone secondary to RA followed by Dr. Marlow, ANEMIA,COMPRESSION FX L1, PAST FALL. of lithiasis, Csection, gall bladder Last Myocardial Infarction Date:: 11/2016 History of Any Multi-Drug Resistant Organisms: C-DIFF Year Discovered:: 2014 MDRO Source:: C-DIFF Past Surgical History: Back Surgery, Cholecystectomy, Orthopedic Surgery Additional Past Surgical History / Comment(s): right knee TKA 2, carpel tunnel , CYST REMOVED (NECK) AGE 6, 2 back surgery 2004 Past Anesthesia/Blood Transfusion Reactions: No Reported Reaction Past Psychological History: Anxiety Smoking Status: Never smoker Past Alcohol Use History: None Reported Past Drug Use History: None Reported - Past Family History Sister(s) Family Medical History: Cancer (leukemia in one sister, 2nd sister with ovarian cancer ), Diabetes Mellitus (2 sisters wi th DM ) Additional Family Medical History / Comment(s): 11 siblings, 6 left Mother Family Medical History: Cancer, Diabetes Mellitus Additional Family Medical History / Comment(s): addisons disease Father Family Medical History: Cancer (throat cancer ), Hypertension Medications and Allergies Home Medications Medication Instructions Recorded Confirmed Type Omeprazole [PriLOSEC] 20 mg PO BID 02/20/14 03/28/17 History predniSONE 10 mg PO DAILY 02/20/14 03/28/17 History Cyanocobalamin [Vitamin B-12] 2,500 mcg PO DAILY 08/19/14 03/28/17 History Ferrous Sulfate [Iron (65 MG 325 mg PO HS 08/19/14 03/28/17 History Elemental)] Ondansetron Odt [Zofran ODT] 4 mg PO Q8HR PRN #15 tab 01/04/15 03/28/17 Rx Calcitriol 0.25 mcg PO DAILY 01/07/15 03/28/17 History Liothyronine Sodium [Cytomel] 5 mcg PO DAILY 01/07/15 03/28/17 History Levothyroxine Sodium [Synthroid] 25 mcg PO DAILY@0630 tab 01/12/15 03/28/17 Rx ALPRAZolam [Xanax] 0.25 mg PO BID PRN 09/02/16 03/28/17 History Gabapentin [Neurontin] 100 mg PO TID 09/02/16 03/28/17 History Magnesium 200 mg PO HS 09/02/16 03/28/17 History Morphine Sulfate ER [Ms Contin] 15 mg PO BID 09/02/16 03/28/17 History HYDROcodone/APAP 10-325MG [[place] 1 tab PO Q4HR PRN 09/25/16 03/28/17 History 10-325] hydrALAZINE HCL [Apresoline] 50 mg PO TID 12/03/16 03/28/17 History Atorvastatin [Lipitor] 40 mg PO HS #30 tab 12/09/16 03/28/17 Rx Nitroglycerin Sl Tabs [Nitrostat] 0.4 mg SUBLINGUAL Q5M PRN #25 tab 12/09/16 Rx Carvedilol [Coreg] 25 mg PO BID 12/25/16 03/28/17 History Isosorbide Mononitrate ER [Imdur] 30 mg PO QAM 01/17/17 03/28/17 History Aspirin [Adult Low Dose Aspirin EC] 81 mg PO DAILY 02/27/17 03/28/17 History Furosemide [Lasix] 40 mg PO DAILY 03/06/17 03/28/17 History Glimepiride [Amaryl] 1 mg PO AC-BRKFST 03/28/17 03/28/17 History Sodium Bicarbonate Tab 650 mg PO DAILY 03/28/17 03/28/17 History Allergies Allergy/AdvReac Type Severity Reaction Status Date / Time codeine Allergy Rash/Hives Verified 03/28/17 14:43 Sulfa (Sulfonamide Allergy Rash/Hives Verified 03/28/17 14:43 Antibiotics) gold Allergy Unknown Uncoded 03/28/17 00:21 Surgical - Exam Vital Signs Temp Pulse Resp BP Pulse Ox 98.3 F 106 H 16 133/63 89 L 03/28/17 14:29 03/28/17 14:29 03/28/17 14:29 03/28/17 14:29 03/28/17 14:29 Physical exam: General: Well-developed, well-nourished HEENT: Normocephalic, sclerae nonicteric Abdomen: Nontender, nondistended Extremities: Peripheral edema noted Neuro: Alert and oriented Results - Labs 03/29/17 09:22 03/29/17 09:22 Abnormal Lab Results - Last 24 Hours (Table) 03/28/17 03/28/17 03/28/17 Range/Units 19:30 20:37 22:00 RBC (3.80-5.40) m/uL Hgb (11.4-16.0) gm/dL Hct (34.0-46.0) % Plt Count (150-450) k/uL Lymphocytes # (1.0-4.8) k/uL BUN (7-17) mg/dL Creatinine (0.52-1.04) mg/dL POC Glucose (mg/dL) 72 L 116 H (75-99) mg/dL Calcium (8.4-10.2) mg/dL Total Protein (6.3-8.2) g/dL Albumin (3.5-5.0) g/dL Urine Appearance Cloudy H (Clear) Urine Protein 1+ H (Negative) Ur Leukocyte Esterase Large H (Negative) Urine WBC 65 H (0-5) /hpf Ur Squamous Epith Cells 9 H (0-4) /hpf Amorphous Sediment Rare H (None) /hpf Urine Bacteria Occasional H (None) /hpf Urine Mucus Rare H (None) /hpf Crossmatch 03/29/17 03/29/17 03/29/17 Range/Units 09:22 09:22 11:10 RBC 2.15 L (3.80-5.40) m/uL Hgb 6.9 L* (11.4-16.0) gm/dL Hct 20.3 L (34.0-46.0) % Plt Count 124 L (150-450) k/uL Lymphocytes # 0.8 L (1.0-4.8) k/uL BUN 71 H (7-17) mg/dL Creatinine 2.06 H (0.52-1.04) mg/dL POC Glucose (mg/dL) (75-99) mg/dL Calcium 7.9 L (8.4-10.2) mg/dL Total Protein 4.4 L (6.3-8.2) g/dL Albumin 2.2 L (3.5-5.0) g/dL Urine Appearance (Clear) Urine Protein (Negative) Ur Leukocyte Esterase (Negative) Urine WBC (0-5) /hpf Ur Squamous Epith Cells (0-4) /hpf Amorphous Sediment (None) /hpf Urine Bacteria (None) /hpf Urine Mucus (None) /hpf Crossmatch See Detail 03/29/17 03/29/17 Range/Units 11:27 16:39 RBC (3.80-5.40) m/uL Hgb (11.4-16.0) gm/dL Hct (34.0-46.0) % Plt Count (150-450) k/uL Lymphocytes # (1.0-4.8) k/uL BUN (7-17) mg/dL Creatinine (0.52-1.04) mg/dL POC Glucose (mg/dL) 124 H 200 H (75-99) mg/dL Calcium (8.4-10.2) mg/dL Total Protein (6.3-8.2) g/dL Albumin (3.5-5.0) g/dL Urine Appearance (Clear) Urine Protein (Negative) Ur Leukocyte Esterase (Negative) Urine WBC (0-5) /hpf Ur Squamous Epith Cells (0-4) /hpf Amorphous Sediment (None) /hpf Urine Bacteria (None) /hpf Urine Mucus (None) /hpf Crossmatch Microbiology - Last 24 Hours (Table) 03/29/17 09:00 Urine Culture - Preliminary Urine,Voided 03/28/17 15:35 Blood Culture - Final Blood Diabetes panel 03/29/17 Range/Units 09:22 Sodium 141 (137-145) mmol/L Potassium 4.8 (3.5-5.1) mmol/L Chloride 107 (98-107) mmol/L Carbon Dioxide 28 (22-30) mmol/L BUN 71 H (7-17) mg/dL Creatinine 2.06 H (0.52-1.04) mg/dL Glucose 92 (74-99) mg/dL Calcium 7.9 L (8.4-10.2) mg/dL AST 20 (14-36) U/L ALT 20 (9-52) U/L Alkaline Phosphatase 71 (38-126) U/L Total Protein 4.4 L (6.3-8.2) g/dL Albumin 2.2 L (3.5-5.0) g/dL Calcium panel 03/29/17 Range/Units 09:22 Calcium 7.9 L (8.4-10.2) mg/dL Albumin 2.2 L (3.5-5.0) g/dL Pituitary panel 03/29/17 Range/Units 09:22 Sodium 141 (137-145) mmol/L Potassium 4.8 (3.5-5.1) mmol/L Chloride 107 (98-107) mmol/L Carbon Dioxide 28 (22-30) mmol/L BUN 71 H (7-17) mg/dL Creatinine 2.06 H (0.52-1.04) mg/dL Glucose 92 (74-99) mg/dL Calcium 7.9 L (8.4-10.2) mg/dL Adrenal panel 03/29/17 Range/Units 09:22 Sodium 141 (137-145) mmol/L Potassium 4.8 (3.5-5.1) mmol/L Chloride 107 (98-107) mmol/L Carbon Dioxide 28 (22-30) mmol/L BUN 71 H (7-17) mg/dL Creatinine 2.06 H (0.52-1.04) mg/dL Glucose 92 (74-99) mg/dL Calcium 7.9 L (8.4-10.2) mg/dL Total Bilirubin 0.2 (0.2-1.3) mg/dL AST 20 (14-36) U/L ALT 20 (9-52) U/L Alkaline Phosphatase 71 (38-126) U/L Total Protein 4.4 L (6.3-8.2) g/dL Albumin 2.2 L (3.5-5.0) g/dL Assessment and Plan (1) Anemia Narrative/Plan: No evidence of GI bleeding at this time. Await Hemoccult stools. Follow-up with hematology post discharge. Status: Acute
[2017-03-29] MEDS ORDERED: VANCOMYCIN 1,250 MG in SODIUM CHLORIDE 0.9% 250 ML IVPB SCH (18:00)
[2017-03-29 20:55] LABS: Glucose,Whole Blood 285 mg/dL (75-99)
[2017-03-29] MEDS: FERROUS SULFATE 325 MG TAB PO SCH (22:00)
[2017-03-29] MEDS: MAGNESIUM OXIDE 400 MG TAB PO SCH (22:01)
[2017-03-30] MEDS: GABAPENTIN 100 MG CAP PO SCH ×4 (00:06→20:33)
[2017-03-30 05:24] LABS: Glucose,Whole Blood 77 mg/dL (75-99)
[2017-03-30 06:32] LABS: Glucose,Whole Blood 93 mg/dL (75-99)
[2017-03-30 06:35] LABS: Anisocytosis Slight; Basophils % (A) 0 %; CH 32.1; CHCM 32.7; Eosinophils # (A) 0.1 k/uL (0-0.7); Eosinophils % (A) 2 %; HCT 22.7 % (34.0-46.0); HDW 3.07; HGB 7.4 gm/dL (11.4-16.0); Luc # (Auto) 0.12; Luc % (Auto) 2; Lymphocytes # (A) 0.6 k/uL (1.0-4.8); Lymphocytes % (A) 9 %; MCH 32.3 pg (25.0-35.0); MCHC 32.6 g/dL (31.0-37.0); MCV 98.9 fL (80.0-100.0); Macrocytosis Slight; Mean Platelet Volume 8.2; Monocytes # (A) 0.4 k/uL (0-1.0); Monocytes % (A) 7 %; Neutrophils % (A) 80 %; RDW 16.1 % (11.5-15.5); WBC 6.2 k/uL (3.8-10.6); WBC (Perox) 6.18
[2017-03-30 06:43] LABS: Potassium 4.3 mmol/L (3.5-5.1); Total Bilirubin 0.4 mg/dL (0.2-1.3); Total Protein 4.3 g/dL (6.3-8.2)
[2017-03-30] MEDS: CARVEDILOL 12.5 MG TAB PO SCH ×2 (06:54→16:53)
[2017-03-30] MEDS: LIOTHYRONINE SODIUM 5 MCG TAB PO SCH (06:54)
[2017-03-30] MEDS: LEVOTHYROXINE 25 MCG TAB PO SCH (06:54)
[2017-03-30] MEDS: PANTOPRAZOLE 40 MG TABLET PO SCH ×2 (06:54→16:53)
[2017-03-30] MEDS: CYANOCOBALAMIN 500 MCG TAB PO SCH (06:58)
[2017-03-30] MEDS: ASPIRIN 81 MG PO SCH (07:51)
[2017-03-30] MEDS: hydrALAZINE HCL 50 MG TAB PO SCH (07:53)
[2017-03-30] MEDS: ISOSORBIDE MONONITRATE ER 30 MG TAB.ER.24H PO SCH (07:53)
[2017-03-30] MEDS: MORPHINE SULFATE ER 15 MG TABLET PO SCH ×2 (07:55→20:37)
[2017-03-30] MEDS: REPAGLINIDE 1 MG TAB PO SCH ×2 (07:56→11:33)
[2017-03-30] MEDS: CALCITRIOL 0.25 MCG CAP PO SCH (07:57)
[2017-03-30] MEDS: FUROSEMIDE 10 MG/ML 4 ML VIAL IV SCH (07:57)
[2017-03-30] MEDS: predniSONE 10 MG TAB PO SCH (07:57)
[2017-03-30] MEDS: SODIUM BICARBONATE TAB 650 MG TAB PO SCH (07:57)
[2017-03-30] MEDS ORDERED: LEVOFLOXACIN 750MG-D5W PMX 750 MG in DEXTROSE/WATER 1 150ML.BAG IVPB SCH (09:00)
[2017-03-30] MEDS: HYDROcodone/APAP 10-325MG 1 EACH TAB PO PRN ×2 (11:32→22:15)
[2017-03-30] MEDS: ALPRAZolam 0.25 MG TAB PO PRN (11:32)
[2017-03-30] MEDS: HYDROCORTISONE SUCCINATE 100 MG/2 ML VIAL IV SCH ×2 (11:32→20:31)
[2017-03-30 11:33] LABS: Glucose,Whole Blood 164 mg/dL (75-99)
--- NOTE | 2017-03-30 11:33 | P.PN ---
<Nadja Kaur A - Last Filed: 03/30/17 11:12> Subjective 67 years old female patient of Dr. Lenrer with past medical history of rheumatoid arthritis, hyperlipidemia, chronic anemia, CTD 3, chronic pain syndrome, hypothyroidism, history of coronary artery disease, hypertension, chronic neuropathy recurrent lower back pain with recent admission for NSTEMI and anemia with hemoglobin of 6 status post transfusions in November 2016. Patient underwent endoscopy and colonoscopy in January 2017 did suggest chronic gastritis and esophagitis and adenoma was present on the colonoscopy. Patient presented to the ED complaining of feeling nauseated and weak on 2016. She presented to ED initially at 11 pm yesterday for low blood sugar and feeling weak. Once her blood sugar corrected she went back home but started having nausea, associated with weakness and feeling cold. According to patient she was recently started on glimepiride for her diabetes and Prandin was stopped. Patient checked her blood sugar it was 55 and accidentally took her glimepiride despite being hypoglycemic. She felt extremely weak and came back to ED. Patient denies any fever, chest pain, shortness of breath, change in vision, dizziness, weakness in her extremities. She denies any hemoptysis or melena. Patient denies any burning micturition, frequency of urination, abdominal pain, flank pain or any change in mental status. Since patient had leukocytosis with urinalysis suggesting infection patient was started on Levaquin and admitted for UTI and hypoglycemia. Some pulmonary vascular congestion seen on chest x-ray and 1 dose of Lasix was given. Patient admitted for further management of UTI . 03/30: Patient has been seen by Dr. Quigley covering for Dr. Camacho with recommendations for follow-up with hematology as an outpatient. Repeat hemoglobin is 7.4 after 1 unit packed RBCs. BUN is at 69 and creatinine 2.2 for which nephrology consult has been requested. Lasix will be switched to oral. Blood cultures showing gram-positive cocci and vancomycin was started. Cortisol level was low and patient will be placed on hydrocortisone 50 mg IV every 12 hours. Possible bacteremia or contamination. Await final culture report and Vanco started. Transfer to med-surg floor. Objective - Vital Signs Vital signs: Vital Signs Temp 97 F L 03/30/17 07:47 Pulse 77 03/30/17 07:47 Resp 18 03/30/17 07:47 BP 126/75 03/30/17 07:47 Pulse Ox 97 03/30/17 07:47 Intake & Output 03/29/17 03/30/17 03/30/17 18:59 06:59 18:59 Intake Total 310 240 Output Total 2100 300 200 Balance -1790 -300 40 Weight 74.843 kg 74.9 kg Intake: Oral 240 Blood Product 310 Rc As-1 Unit 310 [id number] Output: Urine 2100 300 200 Other: Voiding Method Bedpan Bedpan # Voids 0 1 1 - Exam General appearance: average body habitus, cooperative, no acute distress - EENT Eyes: EOMI, PERRLA, no photophobia, no ptosis ENT: normal oropharynx Ears: negative: bulging (emergency examination is) - Neck Neck: no lymphadenopathy, no rigidity Carotids: bilateral: upstroke normal Thyroid: bilateral: normal size (getting used to it will) - Respiratory Respiratory: bilateral: CTA, negative: diminished (likely), dullness, wheezing - Cardiovascular Heart sounds: normal: S1, S2 ( ) Abnormal Heart Sounds: no systolic murmur, no diastolic murmur ankle Peripheral Edema: bilateral: 1+ (pitting ) radial pulse Peripheral Pulses: bilateral: Diminished - Gastrointestinal General gastrointestinal: no decreased bowel sounds, no distended, normal bowel sounds, soft, no tenderness - Neurologic Neurologic: CNII-XII intact (no focal deficits ) - Musculoskeletal Musculoskeletal: generalized weakness (wheelchair bound ) - Psychiatric Psychiatric: A&O x's 3 - Labs CBC & Chem 7: 03/30/17 05:26 03/30/17 05:26 Labs: Abnormal Lab Results - Last 24 Hours (Table) 03/29/17 03/29/17 03/29/17 Range/Units 11:10 11:27 16:39 RBC (3.80-5.40) m/uL Hgb (11.4-16.0) gm/dL Hct (34.0-46.0) % RDW (11.5-15.5) % Plt Count (150-450) k/uL Lymphocytes # (1.0-4.8) k/uL BUN (7-17) mg/dL Creatinine (0.52-1.04) mg/dL Glucose (74-99) mg/dL POC Glucose (mg/dL) 124 H 200 H (75-99) mg/dL Calcium (8.4-10.2) mg/dL Total Protein (6.3-8.2) g/dL Albumin (3.5-5.0) g/dL Crossmatch See Detail 03/29/17 03/30/17 03/30/17 Range/Units 20:52 05:26 05:26 RBC 2.30 L (3.80-5.40) m/uL Hgb 7.4 L (11.4-16.0) gm/dL Hct 22.7 L (34.0-46.0) % RDW 16.1 H (11.5-15.5) % Plt Count 116 L (150-450) k/uL Lymphocytes # 0.6 L (1.0-4.8) k/uL BUN 69 H (7-17) mg/dL Creatinine 2.20 H (0.52-1.04) mg/dL Glucose 65 L (74-99) mg/dL POC Glucose (mg/dL) 285 H (75-99) mg/dL Calcium 8.0 L (8.4-10.2) mg/dL Total Protein 4.3 L (6.3-8.2) g/dL Albumin 2.3 L (3.5-5.0) g/dL Crossmatch Microbiology - Last 24 Hours (Table) 03/28/17 15:35 Blood Culture Gram Stain - Preliminary Blood Blood Culture - Preliminary Coagulase Negative Staph 03/29/17 09:00 Urine Culture - Preliminary Urine,Voided 03/28/17 15:35 Blood Culture - Final Blood Assessment and Plan Plan: #1 general leg weakness with low blood sugar - Blood sugar on admission 55, currently stable - Patient's new medication glimepiride on hold as can cause hypoglycemia - Patient also has a urinary infection which can also contribute to hypoglycemia , will continue Levaquin 750 every 48 hours Ms. her creatinine clearance - Serum cortisol level ordered as patient was hypotensive #2 acute on chronic diastolic heart failure - Last echo suggestive of concentric hyper-trophy with normal ejection fraction and mild valvular abnormalities in 11/22 - Continue Lasix 40 milligrams daily changed to oral - Monitor I/o - daily weights - Hydralazine and Imdur held as patient's blood pressure is soft #3 acute on chronic iron deficiency anemia - Patient has history of anemia of chronic anemia secondary to inflammation from rheumatoid arthritis and has received blood transfusion in the past admissions - Hemoglobin this morning 6.9 status post one unit PRBC with 20 IV Lasix - Continue to monitor hemoglobin daily - Patient underwent endoscopy in January 2017 positive for chronic gastritis and esophagitis. Since patient is on chronic steroids for rheumatoid arthritis, it is possible patient has continues to have subtle GI bleed - No epigastric tenderness on examination - Fecal occult ordered - Dr. Camacho consult placed for evaluation for GI bleed - Continue Protonix 40 mg by mouth twice a day #4 Acute kidney injury with stage III chronic kidney disease - Slightly elevated creatinine from baseline - Continue to Monitor BMP - Consult with nephrology #5 Rheumatoid arthritis: - Has been seen Dr. morgan On prednisone only with no biological agent at this point. Patient has tried multiple biological agents but failed the treatment because of side effects. #6 chronic pain syndrome: - Patient has been on MS Contin 15 mg twice a day along with [place] 10/325 g every 4 hours as needed. #7 hypothyroidism: Remain on Cytomel and Synthroid together. #8 Diabetes: -Patient was on Prandin which was discontinued recently - Hold Glimipiride - ISS #9 history of CAD: Has been seen cardiology regular basis. #10 hypertension: Hold hydralazine 50 mg 3 times a day and imdur - Continue Coreg 25 g twice a day. # 11 fluid overload: Has been on furosemide 40 mg 5 days a week. #12 hyperlipidemia: Remain on Zocor 40 mg daily. #13 chronic neuropathy: Mostly idiopathic peripheral neuropathy and diabetic neuropathy as well to continue Neurontin 100 mg 3 times a day. 14 GI prophylaxis: Continue home Prilosec 20 mg twice a day as patient is on steroid 15 DVT prophylaxis: Not on any anticoagulation but will keep patient on knee- high CHAUNCEY hose and Venodyne boots. 16 Possible bacteremia, possible contamination. Await final culture report and Vanco started. CODE STATUS: Full code. Discharge [facility]: [facility]. Impression and plan of care have been directed as dictated by the signing physician. Nadja Kaur nurse practitioner acting as scribe for signing physician. <Radha Lozano - Last Filed: 03/30/17 11:50> Objective - Vital Signs Vital signs: Vital Signs Temp 97 F L 03/30/17 07:47 Pulse 77 03/30/17 07:47 Resp 18 03/30/17 07:47 BP 126/75 03/30/17 07:47 Pulse Ox 97 03/30/17 07:47 Intake & Output 03/29/17 03/30/17 03/30/17 18:59 06:59 18:59 Intake Total 310 240 Output Total 2100 300 200 Balance -1790 -300 40 Weight 74.843 kg 74.9 kg Intake: Oral 240 Blood Product 310 Rc As-1 Unit 310 [id number] Output: Urine 2100 300 200 Other: Voiding Method Bedpan Bedpan # Voids 0 1 1 - Labs CBC & Chem 7: 03/30/17 05:26 03/30/17 05:26 Labs: Abnormal Lab Results - Last 24 Hours (Table) 03/29/17 03/29/17 03/29/17 Range/Units 11:10 16:39 20:52 RBC (3.80-5.40) m/uL Hgb (11.4-16.0) gm/dL Hct (34.0-46.0) % RDW (11.5-15.5) % Plt Count (150-450) k/uL Lymphocytes # (1.0-4.8) k/uL BUN (7-17) mg/dL Creatinine (0.52-1.04) mg/dL Glucose (74-99) mg/dL POC Glucose (mg/dL) 200 H 285 H (75-99) mg/dL Calcium (8.4-10.2) mg/dL Total Protein (6.3-8.2) g/dL Albumin (3.5-5.0) g/dL Crossmatch See Detail 03/30/17 03/30/17 03/30/17 Range/Units 05:26 05:26 11:21 RBC 2.30 L (3.80-5.40) m/uL Hgb 7.4 L (11.4-16.0) gm/dL Hct 22.7 L (34.0-46.0) % RDW 16.1 H (11.5-15.5) % Plt Count 116 L (150-450) k/uL Lymphocytes # 0.6 L (1.0-4.8) k/uL BUN 69 H (7-17) mg/dL Creatinine 2.20 H (0.52-1.04) mg/dL Glucose 65 L (74-99) mg/dL POC Glucose (mg/dL) 164 H (75-99) mg/dL Calcium 8.0 L (8.4-10.2) mg/dL Total Protein 4.3 L (6.3-8.2) g/dL Albumin 2.3 L (3.5-5.0) g/dL Crossmatch Microbiology - Last 24 Hours (Table) 03/28/17 15:35 Blood Culture Gram Stain - Preliminary Blood Blood Culture - Preliminary Coagulase Negative Staph 03/29/17 09:00 Urine Culture - Preliminary Urine,Voided 03/28/17 15:35 Blood Culture - Final Blood Assessment and Plan Plan: #17. Adrenal insufficiency - Patient has low cortisol, has low BP intermittently overnight.As patient on chronic steroid use for RA, Started on stress dose of hydrocortisone 50 iv q12. Would need cortef on discharge.
--- NOTE | 2017-03-30 11:43 | CDI ---
In responding to this query, please exercise your independent professional judgment. The [facility] Coding Staff and Clinical Documentation Specialists appreciate your assistance in clarifying documentation, maintaining compliance with coding guidelines, accurately documenting patients condition and capturing severity of illness. The fact that a question is asked does not imply that any particular answer is desired or expected. Communication forms are a method of clarifying documentation and are not made part of the Legal Health Record. Thank you in advance for your clarification. Last Revision, September 2016 Abe Terrazas [address] [place] [address] Documentation Clarification Form Date: 03/30/2017 11:26:00 AM From: Adele Morales RN, CCDS Admit Date: 03/28/2017 8:46:00 PM Patient Name: Sis Neves Visit Number: [id number] Dr. Lozano/Nadja Kaur CNP CHF is documented in the H&P. History/Risk Factors: Chronic anemia, CAD, NSTEMI Clinical Indicators: 03/29 H&P: acute CHF exacerbation - Patient has pulmonary vascular congestion with lower extremity 1+ pedal edema with elevated BNP suggestive of CHF exacerbation - Last echo suggestive of concentric hyper-trophy with normal ejection fraction. " VS/Pulse OX: Temp 98.3, hr 106, RR 16, B/P 133/63, Spo2 89% ra BNP: 3430 12/05 Echocardiogram Results: 55-60%, LA is moderately dilated, borderline concentric LVH Chest X Ray: cardiomegly with pulmonary Myesha congestion Treatment: Lasix 20mg IVPx2, Lasix 40 IVP x1, currently Lasix 40 mg PO QD Consults: Surgery and Nephrology In your professional opinion, can you please clarify the acuity and type of CHF if known? Systolic Heart Failure: Acute Chronic Acute on Chronic Diastolic Heart Failure: Acute Chronic Acute on Chronic Systolic & Diastolic Heart Failure: Acute Chronic Acute on Chronic Unable to determine Other, please specify Please document in your progress notes and discharge summary in order to capture severity of illness and risk of mortality. Include clinical findings that support your diagnosis. FYI: Press F11 to launch patient chart. Place X here if this finding has no clinical significance, is not applicable or if you are not able to provide any additional documentation. LOUANN
--- NOTE | 2017-03-30 12:55 | P.PN ---
<Jenna Jarvis Junaid - Last Filed: 03/30/17 12:46> Subjective 67-year-old female being seen in follow-up surgical eval at the request of the attending. Patient's initial presentation was progressive weakness. Patient was found to be anemic. Patient had undergone a workup for the anemia included upper and lower endoscopic with a capsule endoscopic recently in January. Dr. coppola did a EGD on January 19 which did show mild antral gastritis, esophagitis, colonoscopy showed diverticulosis with a large internal/external hemorrhoid with prolapse, multiple right colon and transverse colon polyps Currently denies any rectal bleeding. Stool for occult blood this admission was negative. Patient follows up with Dr. Guido hematology this been evaluated the patient for the chronic anemia hemoglobin this morning 7.4 after patient did receive 1 unit of packed red blood cells for hemoglobin on admission of 6.9 Currently patient resting comfortably in bed denies any chest pain dizziness or lightheadedness. Objective - Vital Signs Vital signs: Vital Signs Temp 97 F L 03/30/17 07:47 Pulse 77 03/30/17 07:47 Resp 18 03/30/17 07:47 BP 126/75 03/30/17 07:47 Pulse Ox 97 03/30/17 07:47 Intake & Output 03/29/17 03/30/17 03/30/17 18:59 06:59 18:59 Intake Total 310 240 Output Total 2100 300 200 Balance -1790 -300 40 Weight 74.843 kg 74.9 kg Intake: Oral 240 Blood Product 310 Rc As-1 Unit 310 [id number] Output: Urine 2100 300 200 Other: Voiding Method Bedpan Bedpan # Voids 0 1 1 - Exam Physical exam Pleasant cooperative oriented 3 resting in bed does not appear in acute distress Lungs essentially clear with adequate air movement bilaterally Heart S1-S2 audible and regular denying chest pain Abdomen soft nontender not distended bowel tones present states no frequent stooling no nausea vomiting and tolerating diet Extremities no edema noted - Labs CBC & Chem 7: 03/30/17 05:26 03/30/17 05:26 Labs: Abnormal Lab Results - Last 24 Hours (Table) 03/29/17 03/29/17 03/29/17 Range/Units 11:10 16:39 20:52 RBC (3.80-5.40) m/uL Hgb (11.4-16.0) gm/dL Hct (34.0-46.0) % RDW (11.5-15.5) % Plt Count (150-450) k/uL Lymphocytes # (1.0-4.8) k/uL BUN (7-17) mg/dL Creatinine (0.52-1.04) mg/dL Glucose (74-99) mg/dL POC Glucose (mg/dL) 200 H 285 H (75-99) mg/dL Calcium (8.4-10.2) mg/dL Total Protein (6.3-8.2) g/dL Albumin (3.5-5.0) g/dL Crossmatch See Detail 03/30/17 03/30/17 03/30/17 Range/Units 05:26 05:26 11:21 RBC 2.30 L (3.80-5.40) m/uL Hgb 7.4 L (11.4-16.0) gm/dL Hct 22.7 L (34.0-46.0) % RDW 16.1 H (11.5-15.5) % Plt Count 116 L (150-450) k/uL Lymphocytes # 0.6 L (1.0-4.8) k/uL BUN 69 H (7-17) mg/dL Creatinine 2.20 H (0.52-1.04) mg/dL Glucose 65 L (74-99) mg/dL POC Glucose (mg/dL) 164 H (75-99) mg/dL Calcium 8.0 L (8.4-10.2) mg/dL Total Protein 4.3 L (6.3-8.2) g/dL Albumin 2.3 L (3.5-5.0) g/dL Crossmatch Microbiology - Last 24 Hours (Table) 03/28/17 15:35 Blood Culture Gram Stain - Preliminary Blood Blood Culture - Preliminary Coagulase Negative Staph 03/29/17 09:00 Urine Culture - Preliminary Urine,Voided 03/28/17 15:35 Blood Culture - Final Blood Assessment and Plan Plan: Impression Anemia with no evidence of GI bleeding with the stool negative for Hemoccult blood this admission Plan Follow-up with hematology post discharge No evidence of an acute surgical abdomen Your medical management defer to The above impression and plan of care have been discussed and directed by signing physician. Jenna Jarvis nurse practitioner acting as scribe for signing physician. <Tariq Quigley - Last Filed: 03/30/17 20:15> Objective - Vital Signs Vital signs: Vital Signs Temp 97.3 F L 03/30/17 14:55 Pulse 80 03/30/17 14:55 Resp 18 03/30/17 16:00 BP 150/90 03/30/17 14:55 Pulse Ox 93 L 03/30/17 14:55 Intake & Output 03/30/17 03/30/17 03/31/17 06:59 18:59 06:59 Intake Total 600 Output Total 300 200 Balance -300 400 Weight 74.9 kg Intake: Oral 600 Output: Urine 300 200 Other: Voiding Method Bedpan Bedpan # Voids 1 2 - Labs CBC & Chem 7: 03/30/17 05:26 03/30/17 05:26 Labs: Abnormal Lab Results - Last 24 Hours (Table) 03/29/17 03/30/17 03/30/17 Range/Units 20:52 05:26 05:26 RBC 2.30 L (3.80-5.40) m/uL Hgb 7.4 L (11.4-16.0) gm/dL Hct 22.7 L (34.0-46.0) % RDW 16.1 H (11.5-15.5) % Plt Count 116 L (150-450) k/uL Lymphocytes # 0.6 L (1.0-4.8) k/uL BUN 69 H (7-17) mg/dL Creatinine 2.20 H (0.52-1.04) mg/dL Glucose 65 L (74-99) mg/dL POC Glucose (mg/dL) 285 H (75-99) mg/dL Calcium 8.0 L (8.4-10.2) mg/dL Total Protein 4.3 L (6.3-8.2) g/dL Albumin 2.3 L (3.5-5.0) g/dL 03/30/17 03/30/17 Range/Units 11:21 17:22 RBC (3.80-5.40) m/uL Hgb (11.4-16.0) gm/dL Hct (34.0-46.0) % RDW (11.5-15.5) % Plt Count (150-450) k/uL Lymphocytes # (1.0-4.8) k/uL BUN (7-17) mg/dL Creatinine (0.52-1.04) mg/dL Glucose (74-99) mg/dL POC Glucose (mg/dL) 164 H 258 H (75-99) mg/dL Calcium (8.4-10.2) mg/dL Total Protein (6.3-8.2) g/dL Albumin (3.5-5.0) g/dL Microbiology - Last 24 Hours (Table) 03/29/17 09:00 Urine Culture - Final Urine,Voided 03/28/17 15:35 Blood Culture Gram Stain - Preliminary Blood Blood Culture - Preliminary Coagulase Negative Staph Assessment and Plan (1) Anemia Status: Acute Plan: As above. Patient doing well. Her occult blood was negative. Her hemoglobin remains stable. We'll sign off at this point. Follow-up with Dr. Guido post discharge.
[2017-03-30 17:27] LABS: Glucose,Whole Blood 258 mg/dL (75-99)
[2017-03-30] MEDS ORDERED: GLIMEPIRIDE 2 MG TAB PO SCH (18:30)
[2017-03-30] MEDS: FERROUS SULFATE 325 MG TAB PO SCH (20:32)
[2017-03-30] MEDS: ATORVASTATIN 40 MG TAB PO SCH (20:33)
[2017-03-30] MEDS: MAGNESIUM OXIDE 400 MG TAB PO SCH (20:33)
[2017-03-30 21:29] LABS: Glucose,Whole Blood 288 mg/dL (75-99)
[2017-03-31 01:49] LABS: Glucose,Whole Blood 323 mg/dL (75-99)
[2017-03-31] MEDS: ALPRAZolam 0.25 MG TAB PO PRN (02:08)
[2017-03-31] MEDS ORDERED: VANCOMYCIN 1,500 MG in SODIUM CHLORIDE 0.9% 250 ML IVPB SCH (06:00)
[2017-03-31] MEDS: LEVOTHYROXINE 25 MCG TAB PO SCH (06:37)
[2017-03-31] MEDS: LIOTHYRONINE SODIUM 5 MCG TAB PO SCH (06:37)
[2017-03-31 07:29] LABS: Glucose,Whole Blood 236 mg/dL (75-99)
[2017-03-31] MEDS ORDERED: GLIMEPIRIDE 1 MG TAB PO SCH (07:30)
[2017-03-31 07:55] VITALS: BP 144/73; PULSE 75; RESP 16; TEMP 97
[2017-03-31] MEDS: CARVEDILOL 12.5 MG TAB PO SCH (07:57)
[2017-03-31] MEDS: GABAPENTIN 100 MG CAP PO SCH (07:57)
[2017-03-31] MEDS: PANTOPRAZOLE 40 MG TABLET PO SCH (07:57)
[2017-03-31] MEDS: CALCITRIOL 0.25 MCG CAP PO SCH (07:57)
[2017-03-31] MEDS: HYDROCORTISONE SUCCINATE 100 MG/2 ML VIAL IV SCH (07:58)
[2017-03-31] MEDS: SODIUM BICARBONATE TAB 650 MG TAB PO SCH (07:58)
[2017-03-31] MEDS: MORPHINE SULFATE ER 15 MG TABLET PO SCH (07:59)
[2017-03-31] MEDS: ASPIRIN 81 MG PO SCH (08:00)
[2017-03-31] MEDS ORDERED: FUROSEMIDE 40 MG TAB PO SCH (09:00)
[2017-03-31 09:12] LABS: Basophils % (A) 0 %; CH 31.2; CHCM 31.4; Eosinophils # (A) 0.1 k/uL (0-0.7); Eosinophils % (A) 1 %; HCT 25.7 % (34.0-46.0); HDW 2.76; HGB 8.3 gm/dL (11.4-16.0); Hypochromasia Slight; Luc # (Auto) 0.08; Luc % (Auto) 1; Lymphocytes # (A) 0.4 k/uL (1.0-4.8); Lymphocytes % (A) 7 %; MCH 32.3 pg (25.0-35.0); MCHC 32.3 g/dL (31.0-37.0); Macrocytosis Slight; Mean Platelet Volume 7.2; Monocytes # (A) 0.4 k/uL (0-1.0); Monocytes % (A) 6 %; Neutrophils # (A) 5.3 k/uL (1.3-7.7); Neutrophils % (A) 84 %; RBC 2.57 m/uL (3.80-5.40); RDW 15.3 % (11.5-15.5); WBC 6.3 k/uL (3.8-10.6); WBC (Perox) 6.77
[2017-03-31 09:23] LABS: Calcium 8.6 mg/dL (8.4-10.2); Potassium 4.3 mmol/L (3.5-5.1); Total Bilirubin 0.1 mg/dL (0.2-1.3); Total Protein 5.2 g/dL (6.3-8.2)
--- NOTE | 2017-03-31 10:30 | P.CONS ---
History of Present Illness - Reason for Consult Consult date: 03/31/17 Chronic anemia - History of Present Illness Ms Neves is a pleasant WF, intially seen in consult at [facility] in late 2004, for anemia and leucopenia. These had been chronic , but were progressive at that time. She had a full w/u that was negative. These were felt to be due to the use of Methotrexate and Arava, that she was on for her longstanding rheumatoid arthritis. After stoppage of these, her counts did improve. She then presented again in 11/12 with progressive anemia. Her lab w/u was again negative. She underwent a bone marrow biopsy in 12/13, which showed just generalised marrow suppression. This was felt to be due to her RA flaring up, as she was off Methotrexate and Arava. She was started on Enbrel by her Ct Scan Special Procedures Technologist, Dr Marlow, and her Hgb did improve along with her RA symptoms. She was last seen in 01/12 at [facility] The pt has been on various biologics since, most recently Cimzia. Her Hgb has fluctuated with her RA activity. Till 12/19, it was stable in the 9-10 range. Since early 04/20, it was noted to be in the 8-9 range. Repeat iron studies during this time showed no deficiency. Her Hg was down to 8.3 on 05/08/13. She was thus referred for hematology w/u. Additional w/u was ordered. this was negative for any deficiency, but did show high sed rate. Her Hgb improved again with initiation of steroids. Thus her anemia was felt to be due to inflammatory suppression, from her underlying autoimmune disease. She did not f/u in the office since 07/22. She was seen in consultation again in 11/22, when admitted with severe anemia. Workup was again consistent with anemia of inflammation. She had not had any Rheumatology f/u for several mths due to coverage issues with proposed treatments and side effects with others. She has thus continued on low dose prednisone with intermittent higher dose courses for flares. There now appear to be an added component of anemia of renal insufficiency. The patient was followed up in the office and recently seen. The plan is for her to start on Procrit. Her iron saturation was low, due to which she received IV iron , per protocol, prior to Procrit initiation. She had a GI workup in 02/22 that was negative. Labs, in any case, had shown high ferritin, indicating no iron deficiency but rather anemia of inflammation. The patient was admitted to the hospital again because of progressive weakness. She was noted to have high blood sugars as well as drop in hemoglobin , again into the 6 range. She received a unit of blood. She overall feels stronger and the skin to go home. She denies any obvious bleeding. Review of Systems Constitutional: Reports fatigue, Reports weakness Eyes: denies blurred vision, denies pain Ears, nose, mouth and throat: Denies headache, Denies sore throat Cardiovascular: Reports dyspnea on exertion Respiratory: Reports dyspnea Gastrointestinal: Reports heartburn Genitourinary: Denies dysuria, Denies hematuria Menstruation: Reports postmenopausal Musculoskeletal: Reports as per HPI, Reports hot joints (Active note her arthritis affecting multiple joints. Multiple areas of joint pain, and marked muscle weakness) Integumentary: Reports rash (Intermittent skin rash which is reddish and generalized. 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 Marlow, ANEMIA,COMPRESSION FX L1, PAST FALL. of lithiasis, Csection, gall bladder Last Myocardial Infarction Date:: 11/2016 History of Any Multi-Drug Resistant Organisms: C-DIFF Year Discovered:: 2014 MDRO Source:: C-DIFF Past Surgical History: Back Surgery, Cholecystectomy, Orthopedic Surgery Additional Past Surgical History / Comment(s): right knee TKA 2, carpel tunnel , CYST REMOVED (NECK) AGE 6, 2 back surgery 2004 Past Anesthesia/Blood Transfusion Reactions: No Reported Reaction Past Psychological History: Anxiety Smoking Status: Never smoker Past Alcohol Use History: None Reported Past Drug Use History: None Reported - Past Family History Sister(s) Family Medical History: Cancer (leukemia in one sister, 2nd sister with ovarian cancer ), Diabetes Mellitus (2 sisters wi th DM ) Additional Family Medical History / Comment(s): 11 siblings, 6 left Mother Family Medical History: Cancer, Diabetes Mellitus Additional Family Medical History / Comment(s): addisons disease Father Family Medical History: Cancer (throat cancer ), Hypertension Medications and Allergies Home Medications Medication Instructions Recorded Confirmed Type Omeprazole [PriLOSEC] 20 mg PO BID 02/20/14 03/28/17 History predniSONE 10 mg PO DAILY 02/20/14 03/28/17 History Cyanocobalamin [Vitamin B-12] 2,500 mcg PO DAILY 08/19/14 03/28/17 History Ferrous Sulfate [Iron (65 MG 325 mg PO HS 08/19/14 03/28/17 History Elemental)] Ondansetron Odt [Zofran ODT] 4 mg PO Q8HR PRN #15 tab 01/04/15 03/28/17 Rx Calcitriol 0.25 mcg PO DAILY 01/07/15 03/28/17 History Liothyronine Sodium [Cytomel] 5 mcg PO DAILY 01/07/15 03/28/17 History Levothyroxine Sodium [Synthroid] 25 mcg PO DAILY@0630 tab 01/12/15 03/28/17 Rx ALPRAZolam [Xanax] 0.25 mg PO BID PRN 09/02/16 03/28/17 History Gabapentin [Neurontin] 100 mg PO TID 09/02/16 03/28/17 History Magnesium 200 mg PO HS 09/02/16 03/28/17 History Morphine Sulfate ER [Ms Contin] 15 mg PO BID 09/02/16 03/28/17 History HYDROcodone/APAP 10-325MG [[place] 1 tab PO Q4HR PRN 09/25/16 03/28/17 History 10-325] hydrALAZINE HCL [Apresoline] 50 mg PO TID 12/03/16 03/28/17 History Atorvastatin [Lipitor] 40 mg PO HS #30 tab 12/09/16 03/28/17 Rx Nitroglycerin Sl Tabs [Nitrostat] 0.4 mg SUBLINGUAL Q5M PRN #25 tab 12/09/16 Rx Carvedilol [Coreg] 25 mg PO BID 12/25/16 03/28/17 History Isosorbide Mononitrate ER [Imdur] 30 mg PO QAM 01/17/17 03/28/17 History Aspirin [Adult Low Dose Aspirin EC] 81 mg PO DAILY 02/27/17 03/28/17 History Furosemide [Lasix] 40 mg PO DAILY 03/06/17 03/28/17 History Glimepiride [Amaryl] 1 mg PO AC-BRKFST 03/28/17 03/28/17 History Sodium Bicarbonate Tab 650 mg PO DAILY 03/28/17 03/28/17 History Allergies Allergy/AdvReac Type Severity Reaction Status Date / Time codeine Allergy Rash/Hives Verified 03/28/17 14:43 Sulfa (Sulfonamide Allergy Rash/Hives Verified 03/28/17 14:43 Antibiotics) gold Allergy Unknown Uncoded 03/28/17 00:21 Physical Exam Vitals: Vital Signs Temp Pulse Resp BP BP Pulse Ox 03/31/17 08:00 16 03/31/17 07:00 97.0 F L 75 16 144/73 97 03/30/17 23:00 97 F L 83 20 130/70 92 L 03/30/17 16:00 18 03/30/17 14:55 97.3 F L 80 18 150/90 93 L Intake and Output 03/30/17 03/31/17 03/31/17 22:59 06:59 14:59 Intake Total 500 1000 Output Total 200 Balance 300 1000 Intake: Oral 500 1000 Output: Urine 200 Other: Voiding Method Bedpan Bedpan Bedpan # Voids 4 2 # Bowel Movements 0 Weight 74.979 kg Patient Weight 04/01/17 06:59 Weight 74.979 kg - Constitutional General appearance: no acute distress - EENT Eyes: EOMI, PERRLA ENT: hearing grossly normal, normal oropharynx - Neck Neck: no lymphadenopathy - Respiratory Respiratory: bilateral: CTA - Cardiovascular Rhythm: regular Heart sounds: normal: S1, S2 - Gastrointestinal General gastrointestinal: normal bowel sounds, soft - Integumentary Integumentary: rash (Overall diminished) - Neurologic Neurologic: CNII-XII intact - Musculoskeletal Musculoskeletal: generalized weakness - Psychiatric Psychiatric: A&O x's 3, intact judgment & insight Results CBC & Chem 7: 03/31/17 08:39 03/31/17 08:39 Labs: Abnormal Lab Results - Last 24 Hours (Table) 03/30/17 03/30/17 03/30/17 Range/Units 11:21 17:22 21:26 RBC (3.80-5.40) m/uL Hgb (11.4-16.0) gm/dL Hct (34.0-46.0) % Plt Count (150-450) k/uL Lymphocytes # (1.0-4.8) k/uL BUN (7-17) mg/dL Creatinine (0.52-1.04) mg/dL Glucose (74-99) mg/dL POC Glucose (mg/dL) 164 H 258 H 288 H (75-99) mg/dL Total Bilirubin (0.2-1.3) mg/dL Total Protein (6.3-8.2) g/dL Albumin (3.5-5.0) g/dL 03/31/17 03/31/17 03/31/17 Range/Units 01:45 07:17 08:39 RBC 2.57 L (3.80-5.40) m/uL Hgb 8.3 L (11.4-16.0) gm/dL Hct 25.7 L (34.0-46.0) % Plt Count 141 L (150-450) k/uL Lymphocytes # 0.4 L (1.0-4.8) k/uL BUN (7-17) mg/dL Creatinine (0.52-1.04) mg/dL Glucose (74-99) mg/dL POC Glucose (mg/dL) 323 H 236 H (75-99) mg/dL Total Bilirubin (0.2-1.3) mg/dL Total Protein (6.3-8.2) g/dL Albumin (3.5-5.0) g/dL 03/31/17 Range/Units 08:39 RBC (3.80-5.40) m/uL Hgb (11.4-16.0) gm/dL Hct (34.0-46.0) % Plt Count (150-450) k/uL Lymphocytes # (1.0-4.8) k/uL BUN 63 H (7-17) mg/dL Creatinine 1.87 H (0.52-1.04) mg/dL Glucose 161 H (74-99) mg/dL POC Glucose (mg/dL) (75-99) mg/dL Total Bilirubin 0.1 L (0.2-1.3) mg/dL Total Protein 5.2 L (6.3-8.2) g/dL Albumin 2.8 L (3.5-5.0) g/dL Microbiology - Last 24 Hours (Table) 03/29/17 09:00 Urine Culture - Final Urine,Voided 03/28/17 15:35 Blood Culture Gram Stain - Preliminary Blood Blood Culture - Preliminary Coagulase Negative Staph Chest x-ray: report reviewed Assessment and Plan (1) Anemia Narrative/Plan: The patient has a chronic anemia of inflammation, related to her rheumatoid arthritis. Hemoglobin drops IV noted, in addition to increased activity of her RA. In the past, when her RA activity has been suppressed, hemoglobin has been in the mild anemia-near normal range. She has had more significant drops in hemoglobin, over the last several months, she has unfortunately not been able to be treated for her RA, except for maintenance steroids, due to coverage issues. She has been worked up extensively, over the last several months for other causes of anemia. These have been negative. Her creatinine has shown an increase, indicating likely an added component of anemia of chronic kidney disease. The plan is therefore to start her on Procrit. As her iron saturation was low, she received IV iron, and is to start Procrit in the office in the near future. In the meantime, it is appropriate to transfuse her, as needed, to keep hemoglobin above 7. Hemoglobin is currently 8.3 after transfusion, which is an appropriate response. From our standpoint she is okay to be discharged whenever okay with the admitting service. She already has follow-up scheduled in the office Status: Acute
[2017-03-31] MEDS: CYANOCOBALAMIN 500 MCG TAB PO SCH (11:42)
[2017-03-31 12:23] LABS: Glucose,Whole Blood 216 mg/dL (75-99)
[2017-03-31] MEDS: HYDROcodone/APAP 10-325MG 1 EACH TAB PO PRN (13:09)
== END 2017-03-31 14:16 | disposition home health service (06) | DRG 291 ==
LOC: EC 14:05 → 6SEL 20:46 → 4MS4W 03-30 14:21
PROVIDERS: ADMIT Family Medicine; ATTEND Family Medicine
PROC: 30233N1 Transfusion of Nonautologous Red Blood Cells into Peripheral Vein, Percutaneous Approach (ICD-10-PCS; principal; 2017-03-29)
DX: I13.0 Hypertensive heart and chronic kidney disease with heart failure and stage 1 through stage 4 chronic kidney disease, or unspecified chronic kidney disease (principal); I50.33 Acute on chronic diastolic (congestive) heart failure; I95.9 Hypotension, unspecified; E11.22 Type 2 diabetes mellitus with diabetic chronic kidney disease; E11.40 Type 2 diabetes mellitus with diabetic neuropathy, unspecified; E11.649 Type 2 diabetes mellitus with hypoglycemia without coma; N18.3 Chronic kidney disease, stage 3 (moderate); E27.40 Unspecified adrenocortical insufficiency; N39.0 Urinary tract infection, site not specified; D63.1 Anemia in chronic kidney disease; M06.9 Rheumatoid arthritis, unspecified; T38.3X5A Adverse effect of insulin and oral hypoglycemic [antidiabetic] drugs, initial encounter; E03.9 Hypothyroidism, unspecified; G89.4 Chronic pain syndrome; D50.9 Iron deficiency anemia, unspecified; K64.8 Other hemorrhoids; K29.50 Unspecified chronic gastritis without bleeding; K20.9 Esophagitis, unspecified; F41.9 Anxiety disorder, unspecified; R11.0 Nausea; K57.30 Diverticulosis of large intestine without perforation or abscess without bleeding; I25.2 Old myocardial infarction; E78.5 Hyperlipidemia, unspecified; R53.1 Weakness; G60.9 Hereditary and idiopathic neuropathy, unspecified; K29.60 Other gastritis without bleeding; M54.5 Low back pain; K64.4 Residual hemorrhoidal skin tags; D72.829 Elevated white blood cell count, unspecified; I25.10 Atherosclerotic heart disease of native coronary artery without angina pectoris; Z80.41 Family history of malignant neoplasm of ovary; Z79.84 Long term (current) use of oral hypoglycemic drugs; Z71.3 Dietary counseling and surveillance; Z79.891 Long term (current) use of opiate analgesic; Z86.010 Personal history of colon polyps; Z79.52 Long term (current) use of systemic steroids; Z80.6 Family history of leukemia; Z83.3 Family history of diabetes mellitus; Z79.82 Long term (current) use of aspirin; Z79.899 Other long term (current) drug therapy; Z82.49 Family history of ischemic heart disease and other diseases of the circulatory system; Z80.8 Family history of malignant neoplasm of other organs or systems; Z88.5 Allergy status to narcotic agent; Z88.2 Allergy status to sulfonamides; Z91.048 Other nonmedicinal substance allergy status; Z83.49 Family history of other endocrine, nutritional and metabolic diseases; Z92.25 Personal history of immunosuppression therapy; Z78.0 Asymptomatic menopausal state; Z99.3 Dependence on wheelchair; Z90.49 Acquired absence of other specified parts of digestive tract; Z96.651 Presence of right artificial knee joint; Z87.311 Personal history of (healed) other pathological fracture; Z91.120 Patient's intentional underdosing of medication regimen due to financial hardship; Z91.19 Patient's noncompliance with other medical treatment and regimen; Z91.14 Patient's other noncompliance with medication regimen; Z87.19 Personal history of other diseases of the digestive system; Z86.19 Personal history of other infectious and parasitic diseases
CPT/HCPCS: 36415; 71020; 78582; 80053; 81001; 82272; 82533; 82550; 82553; 83605; 83735; 83880; 84100; 84484; 85025; 85379; 85610; 85730; 86850; 86900; 86901; 86920; 87040; 87077; 87086; 87186; 87502; 93005; 96361; 96365; 96374; 96375; 99285

== ENCOUNTER → 2017-05-01 | Outpatient (CLI) | payer MEDICARE, BC ==
--- NOTE | 2017-05-02 07:11 | US ---
EXAMINATION TYPE: US kidneys/renal and bladder DATE OF EXAM: 05/01/2017 COMPARISON: US 2017 CLINICAL HISTORY: N18.3 CKD [place] 3, R33.9 Retention of urine. CKD stage 3 EXAM MEASUREMENTS: Right Kidney: 10.1 x 5.1 x 5.0 cm Left Kidney: 11.1 x 5.9 x 5.5 cm Right Kidney: echogenic, cortical thinning, no hydro or masses seen, inferior pole partially obscured by overlying bowel gas Left Kidney: echogenic, cortical thinning, prominent pyramids, no hydro or masses seen Bladder: wnl Bilateral Jets seen: yes There is no evidence for hydronephrosis at this point in time. No nephrolithiasis is seen. No dulce maria s are identified. The urinary bladder is anechoic. Bilateral ureteral jets are seen. IMPRESSION: The findings suggest medical renal disease. Correlate clinically.
== END | disposition home or self-care (01) ==
LOC: RADUSMAIN 15:43
PROVIDERS: ATTEND Internal Medicine Nephrology
DX: N18.3 Chronic kidney disease, stage 3 (moderate) (principal); R33.9 Retention of urine, unspecified
CPT/HCPCS: 76770

== ENCOUNTER 2017-05-03 05:21 | Observation (INO) | payer MEDICARE, BC ==
[2017-05-03] MEDS ORDERED: HYDROcodone/APAP 10-325MG 1 EACH TAB PO ONE (06:04)
--- NOTE | 2017-05-03 06:07 | ED ---
Chest Pain HPI - General Chief Complaint: Chest Pain Stated Complaint: chest pain Time Seen by Provider: 05/03/17 05:34 Source: patient, family Mode of arrival: ambulatory Limitations: no limitations - History of Present Illness Initial Comments: this patient is a 67-year-old woman who presents to be evaluated for chest pressure type pain to the chest just to the right of her sternum. She states the pain started around 4 AM. MD Complaint: chest pain Onset/Timin -: hour(s) Onset: during rest Pain Location: substernal, right chest Pain Radiation: none Severity: moderate Quality: heaviness Consistency: constant Improves With: nothing Worsens With: nothing Treatments Prior to Arrival: none - Related Data Home Medications Medication Instructions Recorded Confirmed Omeprazole [PriLOSEC] 20 mg PO BID 02/20/14 05/03/17 predniSONE 10 mg PO DAILY 02/20/14 05/03/17 Cyanocobalamin [Vitamin B-12] 2,500 mcg PO DAILY 08/19/14 05/03/17 Ferrous Sulfate [Iron (65 MG 325 mg PO HS 08/19/14 05/03/17 Elemental)] Calcitriol 0.25 mcg PO DAILY 01/07/15 05/03/17 Liothyronine Sodium [Cytomel] 5 mcg PO DAILY 01/07/15 05/03/17 ALPRAZolam [Xanax] 0.25 mg PO BID PRN 09/02/16 05/03/17 Gabapentin [Neurontin] 100 mg PO TID 09/02/16 05/03/17 Magnesium 200 mg PO HS 09/02/16 05/03/17 Morphine Sulfate ER [Ms Contin] 15 mg PO BID 09/02/16 05/03/17 HYDROcodone/APAP 10-325MG [[place] 1 tab PO Q4HR PRN 09/25/16 05/03/17 10-325] Carvedilol [Coreg] 25 mg PO BID 12/25/16 05/03/17 Isosorbide Mononitrate ER [Imdur] 30 mg PO QAM 01/17/17 05/03/17 Aspirin [Adult Low Dose Aspirin EC] 81 mg PO DAILY 02/27/17 05/03/17 Furosemide [Lasix] 40 mg PO DAILY 03/06/17 05/03/17 Glimepiride [Amaryl] 1 mg PO AC-BRKFST 03/28/17 05/03/17 Sodium Bicarbonate Tab 650 mg PO DAILY 03/28/17 05/03/17 Previous Rx's Medication Instructions Recorded Ondansetron Odt [Zofran ODT] 4 mg PO Q8HR PRN #15 tab 01/04/15 Levothyroxine Sodium [Synthroid] 25 mcg PO DAILY@0630 tab 01/12/15 Atorvastatin [Lipitor] 40 mg PO HS #30 tab 12/09/16 Nitroglycerin Sl Tabs [Nitrostat] 0.4 mg SUBLINGUAL Q5M PRN #25 tab 12/09/16 Glimepiride [Amaryl] 1 mg PO AC-BRKFST tab 03/31/17 Glimepiride [Amaryl] 1 mg PO AC-SUPPER #1 tab 03/31/17 Allergies Allergy/AdvReac Type Severity Reaction Status Date / Time codeine Allergy Rash/Hives Verified 05/03/17 05:26 Sulfa (Sulfonamide Allergy Rash/Hives Verified 05/03/17 05:26 Antibiotics) gold Allergy Unknown Uncoded 05/03/17 05:26 Review of Systems ROS Statement: Those systems with pertinent positive or pertinent negative responses have been documented in the HPI. ROS Other: All systems not noted in ROS Statement are negative. Constitutional: Denies: fever Respiratory: Denies: cough, dyspnea Cardiovascular: Reports: as per HPI, chest pain. Denies: palpitations, edema, syncope Gastrointestinal: Denies: abdominal pain, nausea, vomiting Genitourinary: Denies: dysuria Musculoskeletal: Reports: back pain (chronic), arthralgia (chronic pain) Skin: Denies: rash Neurological: Denies: headache, weakness EKG Findings - EKG Results: EKG: interpreted by CYNTHIA TEMPLE, sinus rhythm (rate 84 bpm), normal axis, normal QRS, normal ST/T, no acute changes - DE, Pacemaker, Normal: Normal tracing: normal tracing Past Medical History Past Medical History: Diabetes Mellitus, Hyperlipidemia, Hypertension, Renal Disease, Rheumatoid Arthritis (RA), Thyroid Disorder Additional Past Medical History / Comment(s): low vitamin d levels which caused renal deficiency, parathyroid overactive related to low vit d levels, chronic prednisone secondary to RA followed by Dr. Marlow, ANEMIA,COMPRESSION FX L1, PAST FALL. of lithiasis, Csection, gall bladder Last Myocardial Infarction Date:: 11/2016 History of Any Multi-Drug Resistant Organisms: C-DIFF Date of last positivie culture/infection: 2014 MDRO Source:: C-DIFF Past Surgical History: Back Surgery, Cholecystectomy, Orthopedic Surgery Additional Past Surgical History / Comment(s): right knee TKA 2, carpel tunnel , CYST REMOVED (NECK) AGE 6, 2 back surgery 2004 Past Anesthesia/Blood Transfusion Reactions: No Reported Reaction Past Psychological History: Anxiety Smoking Status: Never smoker Past Alcohol Use History: None Reported Past Drug Use History: None Reported - Past Family History Sister(s) Family Medical History: Cancer (leukemia in one sister, 2nd sister with ovarian cancer ), Diabetes Mellitus (2 sisters wi th DM ) Additional Family Medical History / Comment(s): 11 siblings, 6 left Mother Family Medical History: Cancer, Diabetes Mellitus Additional Family Medical History / Comment(s): addisons disease Father Family Medical History: Cancer (throat cancer ), Hypertension General Exam Limitations: no limitations General appearance: alert, in no apparent distress, obese Head exam: Present: atraumatic, normocephalic Eye exam: Present: normal appearance. Absent: scleral icterus, conjunctival injection ENT exam: Present: normal oropharynx Respiratory exam: Present: normal lung sounds bilaterally, chest wall tenderness. Absent: respiratory distress, wheezes, rales, rhonchi, stridor Cardiovascular Exam: Present: regular rate, normal rhythm, normal heart sounds. Absent: systolic murmur, diastolic murmur, rubs, gallop GI/Abdominal exam: Present: soft. Absent: distended, tenderness, guarding, rebound, mass Extremities exam: Present: normal inspection, normal capillary refill. Absent: pedal edema, calf tenderness Back exam: Present: normal inspection. Absent: CVA tenderness (R), CVA tenderness (L) Neurological exam: Present: alert Skin exam: Present: warm, dry, intact, normal color. Absent: rash Course Vital Signs 05/03/17 05/03/17 05/03/17 05:25 06:10 07:13 Temperature 97.8 F 97.1 F L Pulse Rate 85 78 74 Respiratory 18 18 18 Rate Blood Pressure 213/84 147/89 125/64 O2 Sat by Pulse 95 96 97 Oximetry Disposition Clinical Impression: Chest pain, Anemia, Diabetes, Kidney disease Disposition: ADMITTED IP TO THIS HOSP Condition: Fair Referrals: Fay Lerner MD [Primary Care Provider] - 1-2 days
[2017-05-03 06:13] LABS: Basophils % (A) 0 %; CH 32.7; CHCM 32.3; Eosinophils # (A) 0.3 k/uL (0-0.7); Eosinophils % (A) 4 %; HCT 25.8 % (34.0-46.0); HDW 2.88; Luc # (Auto) 0.07; Luc % (Auto) 1; Lymphocytes # (A) 0.8 k/uL (1.0-4.8); Lymphocytes % (A) 12 %; MCH 31.5 pg (25.0-35.0); MCV 101.7 fL (80.0-100.0); Macrocytosis Slight; Mean Platelet Volume 7.5; Monocytes # (A) 0.3 k/uL (0-1.0); Monocytes % (A) 5 %; Neutrophils # (A) 4.8 k/uL (1.3-7.7); Neutrophils % (A) 77 %; RBC 2.54 m/uL (3.80-5.40); RDW 14.5 % (11.5-15.5); WBC 6.2 k/uL (3.8-10.6); WBC (Perox) 6.11
[2017-05-03 06:23] LABS: Calcium 9.2 mg/dL (8.4-10.2); Potassium 3.8 mmol/L (3.5-5.1); Total Bilirubin 0.4 mg/dL (0.2-1.3)
[2017-05-03 06:41] LABS: Prothrombin Time 9.8 sec (9.0-12.0)
[2017-05-03 06:52] LABS: Partial Thromboplastin Time 20.3 sec (22.0-30.0)
--- NOTE | 2017-05-03 06:52 | XR ---
EXAMINATION TYPE: XR chest 1V portable DATE OF EXAM: 05/03/2017 COMPARISON: 03/28/2017 INDICATION: Chest pain TECHNIQUE: Single frontal view of the chest is obtained. FINDINGS: The heart size is normal. The pulmonary vasculature is normal. The lungs are clear. IMPRESSION: 1. No acute pulmonary process.
[2017-05-03 06:56] LABS: Troponin I 0.015 ng/mL (0.000-0.034)
[2017-05-03 06:58] LABS: Creatine Kinase MB 2.6 ng/mL (0.0-2.4)
[2017-05-03] MEDS ORDERED: NITROGLYCERIN SL TABS 0.4 MG TAB SUBLINGUAL PRN ×2 (07:21→07:26)
[2017-05-03] MEDS ORDERED: ENOXAPARIN 80 MG/0.8 ML SYRINGE SQ STA (07:24)
[2017-05-03] MEDS ORDERED: ALPRAZolam 0.25 MG TAB PO PRN (07:26)
[2017-05-03] MEDS ORDERED: HYDROcodone/APAP 10-325MG 1 EACH TAB PO PRN (07:26)
[2017-05-03] MEDS ORDERED: ONDANSETRON ODT 4 MG TAB PO PRN (07:26)
[2017-05-03] MEDS ORDERED: FUROSEMIDE 40 MG TAB PO SCH (09:00)
[2017-05-03] MEDS ORDERED: CYANOCOBALAMIN 500 MCG TAB PO SCH (09:00)
[2017-05-03] MEDS ORDERED: CALCITRIOL 0.25 MCG CAP PO SCH (09:00)
[2017-05-03] MEDS ORDERED: predniSONE 10 MG TAB PO SCH (09:00)
[2017-05-03] MEDS ORDERED: PANTOPRAZOLE 40 MG TABLET PO SCH (09:00)
[2017-05-03] MEDS ORDERED: ASPIRIN 81 MG PO SCH (09:00)
[2017-05-03] MEDS ORDERED: LIOTHYRONINE SODIUM 5 MCG TAB PO SCH (09:00)
[2017-05-03] MEDS ORDERED: ISOSORBIDE MONONITRATE ER 30 MG TAB.ER.24H PO SCH (09:00)
[2017-05-03] MEDS ORDERED: SODIUM BICARBONATE TAB 650 MG TAB PO SCH (09:00)
--- NOTE | 2017-05-03 09:50 | P.CRDCN ---
History of Present Illness Consult date: 05/03/17 Chief complaint: Chest pain History of present illness: This is a pleasant 67-year-old female patient who sees Dr. Perales in the office as an outpatient with a past medical history significant for diabetes , hypertension, dyslipidemia presented to the emergency room complaining of chest discomfort. She was in her usual state of health yesterday when she ate her dinner and she was sitting in the recliner when she started experiencing chest discomfort in the mid of the chest without any radiation to the arm or neck or shoulders and without any associated symptoms. The patient continues to be pain-free. She underwent a heart catheterization in December 2016 and that revealed mild triple -vessel CAD. She underwent an echocardiogram in December 2016 as well as and that revealed normal LV function. The workup this time revealed normal one set of troponin. We don't have the second and third set of troponin at this point. The EKG showed sinus rhythm without any ischemic changes. I will follow-up with the serial cardiac enzymes and if they came in to be unremarkable the patient can be discharged home. The patient is known to have chronic anemia and her hemoglobin today is 8 which could be causing her to have chest discomfort. Past Medical History Past Medical History: Diabetes Mellitus, Hyperlipidemia, Hypertension, Renal Disease, Rheumatoid Arthritis (RA), Thyroid Disorder Additional Past Medical History / Comment(s): low vitamin d levels which caused renal deficiency, parathyroid overactive related to low vit d levels, chronic prednisone secondary to RA followed by Dr. Marlow, ANEMIA,COMPRESSION FX L1, PAST FALL. of lithiasis, Csection, gall bladder Last Myocardial Infarction Date:: 11/2016 History of Any Multi-Drug Resistant Organisms: C-DIFF Date of last positivie culture/infection: 2014 MDRO Source:: C-DIFF Past Surgical History: Back Surgery, Cholecystectomy, Orthopedic Surgery Additional Past Surgical History / Comment(s): right knee TKA 2, carpel tunnel , CYST REMOVED (NECK) AGE 6, 2 back surgery 2004 Past Anesthesia/Blood Transfusion Reactions: No Reported Reaction Past Psychological History: Anxiety Smoking Status: Never smoker Past Alcohol Use History: None Reported Past Drug Use History: None Reported - Past Family History Sister(s) Family Medical History: Cancer (leukemia in one sister, 2nd sister with ovarian cancer ), Diabetes Mellitus (2 sisters wi th DM ) Additional Family Medical History / Comment(s): 11 siblings, 6 left Mother Family Medical History: Cancer, Diabetes Mellitus Additional Family Medical History / Comment(s): addisons disease Father Family Medical History: Cancer (throat cancer ), Hypertension Medications and Allergies Home Medications Medication Instructions Recorded Confirmed Type Omeprazole [PriLOSEC] 20 mg PO BID 02/20/14 05/03/17 History predniSONE 10 mg PO DAILY 02/20/14 05/03/17 History Cyanocobalamin [Vitamin B-12] 1,000 mcg PO DAILY 08/19/14 05/03/17 History Ferrous Sulfate [Iron (65 MG 325 mg PO HS 08/19/14 05/03/17 History Elemental)] Ondansetron Odt [Zofran ODT] 4 mg PO Q8HR PRN #15 tab 01/04/15 05/03/17 Rx Liothyronine Sodium [Cytomel] 5 mcg PO DAILY 01/07/15 05/03/17 History Levothyroxine Sodium [Synthroid] 25 mcg PO DAILY@0630 tab 01/12/15 05/03/17 Rx ALPRAZolam [Xanax] 0.25 mg PO BID PRN 09/02/16 05/03/17 History Gabapentin [Neurontin] 100 mg PO TID 09/02/16 05/03/17 History Morphine Sulfate ER [Ms Contin] 15 mg PO BID 09/02/16 05/03/17 History HYDROcodone/APAP 10-325MG [[place] 1 tab PO Q4HR PRN 09/25/16 05/03/17 History 10-325] Nitroglycerin Sl Tabs [Nitrostat] 0.4 mg SUBLINGUAL Q5M PRN #25 tab 12/09/16 Rx Isosorbide Mononitrate ER [Imdur] 30 mg PO QAM 01/17/17 05/03/17 History Sodium Bicarbonate Tab 650 mg PO DAILY 03/28/17 05/03/17 History Carvedilol [Carvedilol] 25 mg PO BID 05/03/17 05/03/17 History Furosemide [Lasix] 30 mg PO DAILY 05/03/17 05/03/17 History Magnesium Oxide [Mag-Ox] 250 mg PO HS 05/03/17 05/03/17 History Repaglinide [Prandin] 2 mg PO AC-BID@0700,1200 05/03/17 05/03/17 History Simvastatin 40 mg PO HS 05/03/17 05/03/17 History Allergies Allergy/AdvReac Type Severity Reaction Status Date / Time codeine Allergy Rash/Hives Verified 05/03/17 07:47 Sulfa (Sulfonamide Allergy Rash/Hives Verified 05/03/17 07:47 Antibiotics) gold Allergy Unknown Uncoded 05/03/17 05:26 Physical Exam Vitals: Vital Signs Temp Pulse Resp BP Pulse Ox 05/03/17 08:59 97.5 F L 71 16 128/56 95 05/03/17 07:13 97.1 F L 74 18 125/64 97 05/03/17 06:10 78 18 147/89 96 05/03/17 05:25 97.8 F 85 18 213/84 95 Intake and Output 05/02/17 05/03/17 05/03/17 22:59 06:59 14:59 Other: Weight 74.389 kg - Constitutional General appearance: no acute distress - Respiratory Respiratory: bilateral: CTA - Cardiovascular Rhythm: regular Heart sounds: normal: S1, S2 Results 05/03/17 05:40 05/03/17 05:40 Cardiac Enzymes 05/03/17 05/03/17 Range/Units 05:40 05:40 AST 17 (14-36) U/L CK-MB (CK-2) 2.6 H* (0.0-2.4) ng/mL Troponin I 0.015 (0.000-0.034) ng/mL Coagulation 05/03/17 Range/Units 05:40 PT 9.8 (9.0-12.0) sec APTT 20.3 L (22.0-30.0) sec CBC 05/03/17 Range/Units 05:40 WBC 6.2 (3.8-10.6) k/uL RBC 2.54 L (3.80-5.40) m/uL Hgb 8.0 L (11.4-16.0) gm/dL Hct 25.8 L (34.0-46.0) % Plt Count 140 L (150-450) k/uL Comprehensive Metabolic Panel 05/03/17 Range/Units 05:40 Sodium 147 H (137-145) mmol/L Potassium 3.8 (3.5-5.1) mmol/L Chloride 108 H (98-107) mmol/L Carbon Dioxide 29 (22-30) mmol/L BUN 47 H (7-17) mg/dL Creatinine 1.54 H (0.52-1.04) mg/dL Glucose 76 (74-99) mg/dL Calcium 9.2 (8.4-10.2) mg/dL AST 17 (14-36) U/L ALT 23 (9-52) U/L Alkaline Phosphatase 106 (38-126) U/L Total Protein 6.0 L (6.3-8.2) g/dL Albumin 3.4 L (3.5-5.0) g/dL Current Medications Generic Name Dose Route Start Last Admin Trade Name Freq PRN Reason Stop Dose Admin Hydrocodone Bitart/Acetaminophen 1 each 05/03/17 07:26 Orrum 10 PO Q4HR PRN Moderate Pain Alprazolam 0.25 mg 05/03/17 07:26 Xanax PO BID PRN Anxiety Aspirin 81 mg 05/03/17 09:00 Aspirin PO DAILY [facility] Atorvastatin Calcium 40 mg 05/03/17 21:00 Lipitor PO HS [facility] Calcitriol 0.25 mcg 05/03/17 09:00 Rocaltrol PO DAILY [facility] Carvedilol 25 mg 05/03/17 09:00 Coreg PO AC-BID [facility] Cyanocobalamin 2,500 mcg 05/03/17 09:00 Vitamin B-12 PO DAILY [facility] Ferrous Sulfate 325 mg 05/03/17 21:00 Feosol PO HS [facility] Furosemide 40 mg 05/03/17 09:00 Lasix PO DAILY [facility] Gabapentin 100 mg 05/03/17 09:00 Neurontin PO TID [facility] Isosorbide Mononitrate 30 mg 05/03/17 09:00 Imdur PO QAM [facility] Levothyroxine Sodium 25 mcg 05/04/17 06:30 Synthroid PO DAILY@0630 [facility] Liothyronine Sodium 5 mcg 05/03/17 09:00 Cytomel PO DAILY [facility] Magnesium Oxide 400 mg 05/03/17 21:00 Mag-Ox PO HS [facility] Nitroglycerin 0.4 mg 05/03/17 07:21 Nitrostat SUBLINGUAL Q5M PRN Chest Pain Nitroglycerin 0.4 mg 05/03/17 07:26 Nitrostat SUBLINGUAL Q5M PRN Chest Pain Ondansetron HCl 4 mg 05/03/17 07:26 Zofran Odt PO Q8HR PRN Nausea Pantoprazole Sodium 40 mg 05/03/17 09:00 Protonix PO AC-BID [facility] Prednisone 10 mg 05/03/17 09:00 PO DAILY [facility] Sodium Bicarbonate 650 mg 05/03/17 09:00 Sodium Bicarbonate Tab PO DAILY [facility] Intake and Output 05/02/17 05/03/17 05/03/17 22:59 06:59 14:59 Other: Weight 74.389 kg 05/03/17 05:40 05/03/17 05:40 Assessment and Plan Assessment: This is a pleasant 67-year-old female patient who just underwent a heart catheterization few months ago revealed mild triple-vessel CAD presented to the emergency room complaining of chest discomfort. The first set of enzymes came in to be unremarkable and will follow-up with the second 2 sets. The EKG showed sinus rhythm without any significant ST or T-wave abnormalities. If the patient was ruled out for acute coronary event she might be able to be discharged home.
[2017-05-03 11:58] LABS: Creatine Kinase <20 U/L (30-135)
[2017-05-03 12:12] LABS: Troponin I <0.012 ng/mL (0.000-0.034)
[2017-05-03 12:18] LABS: Creatine Kinase MB 3.2 ng/mL (0.0-2.4)
[2017-05-03 13:37] LABS: Glucose,Whole Blood 223 mg/dL (75-99)
[2017-05-03 13:53] VITALS: RESP 18
--- NOTE | 2017-05-03 15:10 | NM ---
EXAMINATION TYPE: NM pul vent and perfuse DATE OF EXAM: 05/03/2017 COMPARISON: NONE HISTORY: History of shortness of breath COMPARISON: 03/28/2017 TECHNIQUE: Utilizing inhalation of 36.6 mCi Tc 99m DTPA aerosol and intravenous injection of 5.21 mC i of Tc 99m MAA, ventilation and perfusion images are acquired post injection in multiple projections . FINDINGS: Some peripheral rat-bite defects are within the bilateral lungs. Moderate or large mismatched defects are not evident. A triple matched defect is not evident. Distribution appears similar to the prior e xamination. IMPRESSION: 1. Low probability for acute pulmonary embolism. 2. Examination is stable from March 28, 2017
[2017-05-03] MEDS: CARVEDILOL 12.5 MG TAB PO SCH ×2 (15:51→18:48)
[2017-05-03] MEDS: GABAPENTIN 100 MG CAP PO SCH ×2 (15:51→15:52)
[2017-05-03 15:52] VITALS: BP 151/66; PULSE 69; TEMP 97.4
--- NOTE | 2017-05-03 17:26 | P.HPIM ---
History of Present Illness H&P Date: 05/03/17 Chief Complaint: Chest pain This is 67 years old female with past medical history significant for diabetes and hypertension presents to the hospital with new onset chest pain patient said that she was sitting in the recliner when she started experiencing discomfort in her mediastinum and stated that was located exactly to the mediastinum without radiation to the left arm and left jaw. Patient denied nausea vomiting, loss of consciousness or sweats at that time and stated that the pain was heavy want go away and decided to come into the emergency department for further evaluation. Patient denied tobacco, alcohol or drug abuse. Said that she's having come plans with her home regimen. Patient denied taking aspirin at home and stated that since admission to the hospital she has been pain-free. Patient denied any exacerbating or alleviating factors and said that the pain is gone since admission to the hospital. Patient denied similar symptoms in the past. Patient underwent cardiac catheterization back in December [address] Carney which revealed mild disease and no intervention was done at that time and recommendation was for maximizing medical therapy. Initial workup in the emergency revealed normal troponin and had EKG showed no ST or T-wave abnormality but had a d-dimer was elevated then VQ scan was done which showed low probability for pulmonary embolism. Patient was hemodynamically stable without shortness of breath and stable vital signs. Review of Systems All 14 systems reviewed and negative except as above Past Medical History Past Medical History: Coronary Artery Disease (CAD), Heart Failure, Diabetes Mellitus, GERD/Reflux, Hyperlipidemia, Hypertension, Myocardial Infarction (AR) , Pneumonia, Renal Disease, Rheumatoid Arthritis (RA), Thyroid Disorder Additional Past Medical History / Comment(s): Past low vitamin d levels which caused renal deficiency (CKD stage III), per pt, kidney stones, UTIs, parathyroid overactive related to low vit d levels per pt, pt states her vitamin D supplement has been discontinued-levels are now normal, HTN in the past but now off RX, chronic prednisone secondary to RA followed by Dr. Marlow, chronic CHF, NIDDM type II, chronic peripheral neuropathies, chronic low back pain, chronic ANEMIA, hypothyroid, overactive parathyroid, COMPRESSION FX L1, PAST FALLS. Last Myocardial Infarction Date:: 11/2016 History of Any Multi-Drug Resistant Organisms: C-DIFF Date of last positivie culture/infection: 2014 MDRO Source:: C-DIFF Past Surgical History: Back Surgery, Section, Cholecystectomy, Heart Catheterization, Joint Replacement, Orthopedic Surgery, Tubal Ligation Additional Past Surgical History / Comment(s): Right TKA 2, L carpel tunnel release, CYST REMOVED (NECK) AGE 6, 2 back surgery 2004, EGD/colonoscopy. Past Anesthesia/Blood Transfusion Reactions: No Reported Reaction Additional Past Anesthesia/Blood Transfusion Reaction / Comment(s): Blood pressure is labile at times with surgery. Smoking Status: Never smoker - Past Family History Sister(s) Family Medical History: Cancer, Diabetes Mellitus Additional Family Medical History / Comment(s): 11 siblings, 6 left. One sister had leukemia and another had ovarian cancer. Mother Family Medical History: Cancer, Diabetes Mellitus Additional Family Medical History / Comment(s): Addisons disease, reproductive cancer. Father Family Medical History: Cancer, Hypertension Additional Family Medical History / Comment(s): Father had throat cancer. He was a smoker. He also had anxiety. Medications and Allergies Home Medications Medication Instructions Recorded Confirmed Type Omeprazole [PriLOSEC] 20 mg PO BID 02/20/14 05/03/17 History predniSONE 10 mg PO DAILY 02/20/14 05/03/17 History Cyanocobalamin [Vitamin B-12] 1,000 mcg PO DAILY 08/19/14 05/03/17 History Ferrous Sulfate [Iron (65 MG 325 mg PO HS 08/19/14 05/03/17 History Elemental)] Ondansetron Odt [Zofran ODT] 4 mg PO Q8HR PRN #15 tab 01/04/15 05/03/17 Rx Liothyronine Sodium [Cytomel] 5 mcg PO DAILY 01/07/15 05/03/17 History Levothyroxine Sodium [Synthroid] 25 mcg PO DAILY@0630 tab 01/12/15 05/03/17 Rx ALPRAZolam [Xanax] 0.25 mg PO BID PRN 09/02/16 05/03/17 History Gabapentin [Neurontin] 100 mg PO TID 09/02/16 05/03/17 History Morphine Sulfate ER [Ms Contin] 15 mg PO BID 09/02/16 05/03/17 History HYDROcodone/APAP 10-325MG [[place] 1 tab PO Q4HR PRN 09/25/16 05/03/17 History 10-325] Nitroglycerin Sl Tabs [Nitrostat] 0.4 mg SUBLINGUAL Q5M PRN #25 tab 12/09/16 Rx Isosorbide Mononitrate ER [Imdur] 30 mg PO QAM 01/17/17 05/03/17 History Sodium Bicarbonate Tab 650 mg PO DAILY 03/28/17 05/03/17 History Carvedilol [Carvedilol] 25 mg PO BID 05/03/17 05/03/17 History Furosemide [Lasix] 30 mg PO DAILY 05/03/17 05/03/17 History Magnesium Oxide [Mag-Ox] 250 mg PO HS 05/03/17 05/03/17 History Repaglinide [Prandin] 2 mg PO AC-BID@0700,1200 05/03/17 05/03/17 History Simvastatin 40 mg PO HS 05/03/17 05/03/17 History Allergies Allergy/AdvReac Type Severity Reaction Status Date / Time codeine Allergy Rash/Hives Verified 05/03/17 07:47 Sulfa (Sulfonamide Allergy Rash/Hives Verified 05/03/17 07:47 Antibiotics) gold Allergy Unknown Uncoded 05/03/17 05:26 Physical Exam Vitals: Vital Signs Temp Pulse Pulse Resp BP BP Pulse Ox 05/03/17 16:00 69 18 05/03/17 15:51 97.4 F L 69 18 151/66 97 05/03/17 13:51 97.8 F 83 18 161/66 97 05/03/17 13:02 65 22 155/68 94 L 05/03/17 08:59 97.5 F L 71 16 128/56 95 05/03/17 07:13 97.1 F L 74 18 125/64 97 05/03/17 06:10 78 18 147/89 96 05/03/17 05:25 97.8 F 85 18 213/84 95 Intake and Output 05/03/17 05/03/17 05/03/17 06:59 14:59 22:59 Other: Weight 74.389 kg 74.4 kg Patient Weight 05/04/17 06:59 Weight 74.4 kg Gen. and have stated age in no acute distress. Neck supple no masses no thyromegaly. Blanks clear to auscultation bilaterally. Heart normal S1-S2. Abdomen soft no tenderness phosphorous. 4 quadrant. Lower extremity. No edema. Skin positive for multiple bruises on the right arm mid chest and face and patient stated that she is very easy to bruise even with light touch and denied being on any blood thinner in the past. Psych alert and oriented 3 and her next mood and affect. Neuro cranial nerves II 12 intact. Results CBC & Chem 7: 05/03/17 05:40 05/03/17 05:40 Labs: Abnormal Lab Results - Last 24 Hours (Table) 05/03/17 05/03/17 05/03/17 Range/Units 05:40 05:40 05:40 RBC 2.54 L (3.80-5.40) m/uL Hgb 8.0 L (11.4-16.0) gm/dL Hct 25.8 L (34.0-46.0) % MCV 101.7 H (80.0-100.0) fL Plt Count 140 L (150-450) k/uL Lymphocytes # 0.8 L (1.0-4.8) k/uL APTT (22.0-30.0) sec D-Dimer (<0.60) mg/L FEU Sodium 147 H (137-145) mmol/L Chloride 108 H (98-107) mmol/L BUN 47 H (7-17) mg/dL Creatinine 1.54 H (0.52-1.04) mg/dL POC Glucose (mg/dL) (75-99) mg/dL Total Creatine Kinase 23 L (30-135) U/L CK-MB (CK-2) 2.6 H* (0.0-2.4) ng/mL Total Protein 6.0 L (6.3-8.2) g/dL Albumin 3.4 L (3.5-5.0) g/dL 05/03/17 05/03/17 05/03/17 Range/Units 05:40 10:49 13:35 RBC (3.80-5.40) m/uL Hgb (11.4-16.0) gm/dL Hct (34.0-46.0) % MCV (80.0-100.0) fL Plt Count (150-450) k/uL Lymphocytes # (1.0-4.8) k/uL APTT 20.3 L (22.0-30.0) sec D-Dimer 2.30 H (<0.60) mg/L FEU Sodium (137-145) mmol/L Chloride (98-107) mmol/L BUN (7-17) mg/dL Creatinine (0.52-1.04) mg/dL POC Glucose (mg/dL) 223 H (75-99) mg/dL Total Creatine Kinase <20 L (30-135) U/L CK-MB (CK-2) 3.2 H* (0.0-2.4) ng/mL Total Protein (6.3-8.2) g/dL Albumin (3.5-5.0) g/dL Thrombosis Risk Factor Assmnt - DVT/VTE Prophylaxis DVT/VTE Prophylaxis: Mechanical Prophylaxis ordered - Choose All That Apply Any of the Below Risk Factors Present?: Yes Each Factor Represents 1 point: Obesity (BMI >25) Other Risk Factors: Yes Each Risk Factor Represents 2 Points: Age 61-74 years Other congenital or acquired thrombophilia - If yes, enter type in comment: No Thrombosis Risk Factor Assessment Total Risk Factor Score: 3 Thrombosis Risk Factor Assessment Level: Moderate Risk Assessment and Plan Assessment: 1. New onset chest pain that resolved completely. Troponin was done 2 with negative result repeated EKG showed stability without acute changes. Patient is chest pain-free. Cardiology evaluated the patient and recommended discharge home to follow up outpatient with product safety consultant. We'll repeat the last appointment and consider discharging patients after that. Patient is agreeable to the current treatment plan itch ALLERGY could be related to acid reflux disease. 2. Hypernatremia. Likely dehydration and encourage oral intake. Mild. 3. Anemia. Chronic will continue monitoring. 4. Rheumatoid arthritis. Continue prednisone 10 mg daily. 5. Anxiety. Continue Xanax as needed. 6. Peripheral neuropathy. Continue Neurontin. 7. Hyperlipidemia. Continue statin. 8. Chronic pain syndrome. We'll continue morphine scheduled twice daily. 9. Hypertension. Fairly controlled we will continue current medication. 10. Diabetes mellitus. Seems to be controlled we will continue home regimen
[2017-05-03 17:38] LABS: Glucose,Whole Blood 252 mg/dL (75-99)
[2017-05-03 17:52] LABS: Creatine Kinase 22 U/L (30-135)
[2017-05-03 18:05] LABS: Troponin I <0.012 ng/mL (0.000-0.034)
[2017-05-03 18:06] LABS: Creatine Kinase MB 2.6 ng/mL (0.0-2.4)
[2017-05-03] MEDS ORDERED: ATORVASTATIN 40 MG TAB PO SCH (21:00)
[2017-05-03] MEDS ORDERED: FERROUS SULFATE 325 MG TAB PO SCH (21:00)
[2017-05-03] MEDS ORDERED: MAGNESIUM OXIDE 400 MG TAB PO SCH (21:00)
[2017-05-04] MEDS ORDERED: LEVOTHYROXINE 25 MCG TAB PO SCH (06:30)
[2017-05-04] MEDS ORDERED: ASPIRIN 325 MG TAB PO SCH (09:00)
== END 2017-05-03 18:40 | disposition home or self-care (01) ==
LOC: EC 05:21 → 3OBS 07:21
PROVIDERS: ADMIT Family Medicine; ATTEND Family Medicine
DX: R07.89 Other chest pain (principal); E87.0 Hyperosmolality and hypernatremia; R79.89 Other specified abnormal findings of blood chemistry; I25.10 Atherosclerotic heart disease of native coronary artery without angina pectoris; D64.9 Anemia, unspecified; M06.9 Rheumatoid arthritis, unspecified; E55.9 Vitamin D deficiency, unspecified; F41.9 Anxiety disorder, unspecified; E11.42 Type 2 diabetes mellitus with diabetic polyneuropathy; E78.5 Hyperlipidemia, unspecified; G89.4 Chronic pain syndrome; I12.9 Hypertensive chronic kidney disease with stage 1 through stage 4 chronic kidney disease, or unspecified chronic kidney disease; E11.22 Type 2 diabetes mellitus with diabetic chronic kidney disease; N18.9 Chronic kidney disease, unspecified; E11.29 Type 2 diabetes mellitus with other diabetic kidney complication; I25.2 Old myocardial infarction; Z79.52 Long term (current) use of systemic steroids; Z79.84 Long term (current) use of oral hypoglycemic drugs; Z79.82 Long term (current) use of aspirin; Z79.899 Other long term (current) drug therapy; Z88.2 Allergy status to sulfonamides; Z88.5 Allergy status to narcotic agent
CPT/HCPCS: 96372 ×2; 99285 ×2; 36415; 93005; 85379; 80053; 82550; 82553; 83735; 84484; 85025; 85610; 85730; 71010; 78582; G0378; A9540; A9567; J1650

== ENCOUNTER 2017-08-12 20:50 | Inpatient (IN) | payer BC, MEDICARE ==
[2017-08-12 21:34] LABS: Glucose,Whole Blood 182 mg/dL (75-99)
[2017-08-12 21:56] LABS: Anisocytosis Slight; Basophils % (A) 0 %; Eosinophils # (A) 0.1 k/uL (0-0.7); Eosinophils % (A) 1 %; HCT 36.5 % (34.0-46.0); HGB 10.9 gm/dL (11.4-16.0); Hypochromasia Moderate; Lymphocytes # (A) 0.3 k/uL (1.0-4.8); Lymphocytes % (A) 4 %; MCH 31.3 pg (25.0-35.0); MCHC 29.8 g/dL (31.0-37.0); Macrocytosis Moderate; Mean Platelet Volume 7.9; Monocytes # (A) 0.3 k/uL (0-1.0); Monocytes % (A) 4 %; Neutrophils # (A) 7.5 k/uL (1.3-7.7); Neutrophils % (A) 91 %; Platelet Count 127 k/uL (150-450); RBC 3.48 m/uL (3.80-5.40); RDW 16.5 % (11.5-15.5); WBC 8.3 k/uL (3.8-10.6)
[2017-08-12 22:02] LABS: Albumin 3.1 g/dL (3.5-5.0); Calcium 8.9 mg/dL (8.4-10.2); Potassium 4.8 mmol/L (3.5-5.1); Total Bilirubin 0.4 mg/dL (0.2-1.3); Total Protein 5.3 g/dL (6.3-8.2)
--- NOTE | 2017-08-12 22:14 | XR ---
EXAMINATION TYPE: XR chest 2V DATE OF EXAM: 08/12/2017 COMPARISON: 06/09/2017 HISTORY: Short of breath TECHNIQUE: Frontal and lateral views of the chest are obtained. FINDINGS: There is no heart failure nor confluent pneumonic infiltrate. Costophrenic angles are tiera r. Heart is probably enlarged. Thoracic aorta is atheromatous. Bony thorax appears intact. IMPRESSION: Cardiomegaly. No active cardiopulmonary disease. No change.
[2017-08-12 22:17] LABS: Creatine Kinase <20 U/L (30-135)
[2017-08-12 22:28] LABS: D-Dimer 1.72 mg/L FEU (<0.60); Prothrombin Time 9.6 sec (9.0-12.0)
[2017-08-12 22:30] LABS: Creatine Kinase MB 1.3 ng/mL (0.0-2.4); Partial Thromboplastin Time 20.9 sec (22.0-30.0); Troponin I 0.022 ng/mL (0.000-0.034)
--- NOTE | 2017-08-12 23:32 | ED ---
Weakness HPI - General Chief complaint: Weakness Stated complaint: Fatigue Time Seen by Provider: 08/12/17 21:15 Source: patient Mode of arrival: wheelchair Limitations: no limitations - History of Present Illness Initial comments: 7 years old female complaining about increased weakness she stating she is unable to walk she can't walk more than 10 feet and she gets short winded him sugar has been high has swelling around her ankles has increased she stated she has been compliant with the medications but there were some adjustment of her medications. She denies any headache no chest pain as such she is short-winded and it gets worse with exertion no abdominal pain no frequency urgency dysuria or shortness of breath is more pronounced and she does have a chronic shortness of breath - Related Data Home Medications Medication Instructions Recorded Confirmed Omeprazole [PriLOSEC] 20 mg PO BID 02/20/14 08/12/17 Cyanocobalamin [Vitamin B-12] 1,000 mcg PO DAILY 08/19/14 08/12/17 Liothyronine Sodium [Cytomel] 5 mcg PO DAILY 01/07/15 08/12/17 ALPRAZolam [Xanax] 0.25 mg PO BID PRN 09/02/16 08/12/17 Gabapentin [Neurontin] 100 mg PO TID 09/02/16 08/12/17 Morphine Sulfate ER [Ms Contin] 15 mg PO BID 09/02/16 08/12/17 HYDROcodone/APAP 10-325MG [Broadway 1 tab PO Q4HR PRN 09/25/16 08/12/17 10-325] Isosorbide Mononitrate ER [Imdur] 30 mg PO QAM 01/17/17 08/12/17 Sodium Bicarbonate Tab 650 mg PO DAILY 03/28/17 08/12/17 Carvedilol 25 mg PO BID 05/03/17 08/12/17 Magnesium Oxide [Mag-Ox] 250 mg PO HS 05/03/17 08/12/17 Simvastatin 40 mg PO HS 05/03/17 08/12/17 Repaglinide [Prandin] 1 mg PO AC-BRKFST 06/09/17 08/12/17 Repaglinide [Prandin] 2 mg PO AC-LUNCH 06/09/17 08/12/17 Furosemide [Lasix] 40 mg PO DAILY 08/12/17 08/12/17 Previous Rx's Medication Instructions Recorded Ondansetron Odt [Zofran ODT] 4 mg PO Q8HR PRN #15 tab 01/04/15 Levothyroxine Sodium [Synthroid] 25 mcg PO DAILY@0630 tab 01/12/15 Nitroglycerin Sl Tabs [Nitrostat] 0.4 mg SUBLINGUAL Q5M PRN #25 tab 12/09/16 Ferrous Sulfate [Iron (65 MG 325 mg PO BID #0 06/03/17 Elemental)] predniSONE 10 mg PO DAILY tab 06/03/17 Metoclopramide [Reglan] 10 mg PO AC-TID #90 tab 06/11/17 amLODIPine [Norvasc] 5 mg PO DAILY #30 tab 06/11/17 Allergies Allergy/AdvReac Type Severity Reaction Status Date / Time codeine Allergy Rash/Hives Verified 08/12/17 22:22 Sulfa (Sulfonamide Allergy Rash/Hives Verified 08/12/17 22:22 Antibiotics) gold Allergy Unknown Uncoded 08/12/17 21:08 Review of Systems ROS Statement: Those systems with pertinent positive or pertinent negative responses have been documented in the HPI. ROS Other: All systems not noted in ROS Statement are negative. Past Medical History Past Medical History: Coronary Artery Disease (CAD), Heart Failure, Diabetes Mellitus, GERD/Reflux, Hyperlipidemia, Hypertension, Myocardial Infarction (SD) , Pneumonia, Renal Disease, Rheumatoid Arthritis (RA), Thyroid Disorder Additional Past Medical History / Comment(s): Past low vitamin d levels which caused renal deficiency (CKD stage III), per pt, kidney stones, UTIs, parathyroid overactive related to low vit d levels per pt, pt states her vitamin D supplement has been discontinued-levels are now normal, HTN in the past but now off RX, chronic prednisone secondary to RA followed by Dr. Marlow, chronic CHF, NIDDM type II, chronic peripheral neuropathies, chronic low back pain, chronic ANEMIA, hypothyroid, overactive parathyroid, COMPRESSION FX L1, PAST FALLS. Last Myocardial Infarction Date:: 11/2016 History of Any Multi-Drug Resistant Organisms: C-DIFF Date of last positivie culture/infection: 2014 MDRO Source:: C-DIFF Past Surgical History: Back Surgery, Section, Cholecystectomy, Heart Catheterization, Joint Replacement, Orthopedic Surgery, Tubal Ligation Additional Past Surgical History / Comment(s): Right TKA 2, L carpel tunnel release, CYST REMOVED (NECK) AGE 6, 2 back surgery 2004, EGD/colonoscopy. Past Anesthesia/Blood Transfusion Reactions: No Reported Reaction Additional Past Anesthesia/Blood Transfusion Reaction / Comment(s): Blood pressure is labile at times with surgery. Past Psychological History: Anxiety Smoking Status: Never smoker Past Alcohol Use History: None Reported Past Drug Use History: None Reported - Past Family History Sister(s) Family Medical History: Cancer, Diabetes Mellitus Additional Family Medical History / Comment(s): 11 siblings, 6 left. One sister had leukemia and another had ovarian cancer. Mother Family Medical History: Cancer, Diabetes Mellitus Additional Family Medical History / Comment(s): Addisons disease, reproductive cancer. Father Family Medical History: Cancer, Hypertension Additional Family Medical History / Comment(s): Father had throat cancer. He was a smoker. He also had anxiety. General Exam - General Exam Comments Initial Comments: General: The patient is awake and alert, in no distress, does look pale and weak Skin: Skin is warm and dry and no rashes or lesions are noted. Eye: Pupils are equal, round and reactive to light, extra-ocular movements are intact; there is normal conjunctiva bilaterally. Ears, nose, mouth and throat: There are moist mucous membranes and no oral lesions. Neck: The neck is supple, there is no tenderness Cardiovascular: There is a regular rate and rhythm. No murmur, rub or gallop is appreciated. Respiratory: To auscultation bilateral, and decreased air exchange bilaterally Gastrointestinal: Soft, non-distended, non-tender abdomen without masses or organomegaly noted. There is no rebound or guarding present. Bowel sounds are unremarkable. Back: There is no tenderness to palpation in the midline. There is no obvious deformity. Musculoskeletal: Noticed edema bilaterally is, is +1 to +2 to both sides Neurological: CN II-XII intact, Cranial nerves III through XII are intact. There are no obvious motor or sensory deficits. Coordination appears grossly intact. Speech is normal. Psychiatric: Cooperative, appropriate mood & affect, normal judgment. Limitations: no limitations Course Vital Signs 08/12/17 08/12/17 21:05 23:22 Temperature 97.9 F Pulse Rate 72 80 Respiratory 20 18 Rate Blood Pressure 181/74 156/67 O2 Sat by Pulse 96 92 L Oximetry was reassessed at 2300, labs are reviewed, CBC is unremarkable d-dimer is elevated so is the creatinine and BNP is elevated as well chest x-ray does not reveal any massive congestive heart failure considering her symptoms shortness of breath she does need a follow-up on the elevated d-dimer though she is not a candidate for CT angiogram chest considering creatinine is elevated she will be candidate for VQ scan she be admitted to Dr. Carlos's group and VQ scan be done EKG Findings - EKG Comments: EKG Findings:: EKG is normal sinus rhythm medical rate 72 [place] interval is 154 QRS duration is 78 QT/QTc is 4/4:30 and review of this EKG does not reveal any ST elevation or ST depression Medical Decision Making - Lab Data Result diagrams: 08/12/17 21:40 08/12/17 21:40 Lab Results 08/12/17 08/12/17 08/12/17 Range/Units 21:11 21:40 21:40 WBC 8.3 (3.8-10.6) k/uL RBC 3.48 L (3.80-5.40) m/uL Hgb 10.9 L (11.4-16.0) gm/dL Hct 36.5 (34.0-46.0) % MCV 105.0 H (80.0-100.0) fL MCH 31.3 (25.0-35.0) pg MCHC 29.8 L (31.0-37.0) g/dL RDW 16.5 H (11.5-15.5) % Plt Count 127 L (150-450) k/uL Neutrophils % 91 % Lymphocytes % 4 % Monocytes % 4 % Eosinophils % 1 % Basophils % 0 % Neutrophils # 7.5 (1.3-7.7) k/uL Lymphocytes # 0.3 L (1.0-4.8) k/uL Monocytes # 0.3 (0-1.0) k/uL Eosinophils # 0.1 (0-0.7) k/uL Basophils # 0.0 (0-0.2) k/uL Hypochromasia Moderate Anisocytosis Slight Macrocytosis Moderate PT (9.0-12.0) sec INR (<1.2) APTT (22.0-30.0) sec D-Dimer (<0.60) mg/L FEU Sodium (137-145) mmol/L Potassium (3.5-5.1) mmol/L Chloride (98-107) mmol/L Carbon Dioxide (22-30) mmol/L Anion Gap mmol/L BUN (7-17) mg/dL Creatinine (0.52-1.04) mg/dL Est GFR (MDRD) Af Amer (>60 ml/min/1.73 sqM) Est GFR (MDRD) Non-Af (>60 ml/min/1.73 sqM) Glucose (74-99) mg/dL POC Glucose (mg/dL) 182 H (75-99) mg/dL POC Glu Lay Out Former ID Pearl Alexander Plasma Lactic Acid Ricci (0.7-2.0) mmol/L Calcium (8.4-10.2) mg/dL Total Bilirubin (0.2-1.3) mg/dL AST (14-36) U/L ALT (9-52) U/L Alkaline Phosphatase (38-126) U/L Total Creatine Kinase <20 L (30-135) U/L CK-MB (CK-2) 1.3 (0.0-2.4) ng/mL CK-MB (CK-2) Rel Index Troponin I 0.022 (0.000-0.034) ng/mL NT-Pro-B Natriuret Pep pg/mL Total Protein (6.3-8.2) g/dL Albumin (3.5-5.0) g/dL 08/12/17 08/12/17 08/12/17 Range/Units 21:40 21:40 21:40 WBC (3.8-10.6) k/uL RBC (3.80-5.40) m/uL Hgb (11.4-16.0) gm/dL Hct (34.0-46.0) % MCV (80.0-100.0) fL MCH (25.0-35.0) pg MCHC (31.0-37.0) g/dL RDW (11.5-15.5) % Plt Count (150-450) k/uL Neutrophils % % Lymphocytes % % Monocytes % % Eosinophils % % Basophils % % Neutrophils # (1.3-7.7) k/uL Lymphocytes # (1.0-4.8) k/uL Monocytes # (0-1.0) k/uL Eosinophils # (0-0.7) k/uL Basophils # (0-0.2) k/uL Hypochromasia Anisocytosis Macrocytosis PT 9.6 (9.0-12.0) sec INR 1.0 (<1.2) APTT 20.9 L (22.0-30.0) sec D-Dimer 1.72 H (<0.60) mg/L FEU Sodium 145 (137-145) mmol/L Potassium 4.8 (3.5-5.1) mmol/L Chloride 105 (98-107) mmol/L Carbon Dioxide 31 H (22-30) mmol/L Anion Gap 9 mmol/L BUN 64 H (7-17) mg/dL Creatinine 1.40 H (0.52-1.04) mg/dL Est GFR (MDRD) Af Amer 46 (>60 ml/min/1.73 sqM) Est GFR (MDRD) Non-Af 38 (>60 ml/min/1.73 sqM) Glucose 191 H (74-99) mg/dL POC Glucose (mg/dL) (75-99) mg/dL POC Glu Lay Out Former ID Plasma Lactic Acid Ricci 1.0 (0.7-2.0) mmol/L Calcium 8.9 (8.4-10.2) mg/dL Total Bilirubin 0.4 (0.2-1.3) mg/dL AST 15 (14-36) U/L ALT 26 (9-52) U/L Alkaline Phosphatase 166 H (38-126) U/L Total Creatine Kinase (30-135) U/L CK-MB (CK-2) (0.0-2.4) ng/mL CK-MB (CK-2) Rel Index Troponin I (0.000-0.034) ng/mL NT-Pro-B Natriuret Pep pg/mL Total Protein 5.3 L (6.3-8.2) g/dL Albumin 3.1 L (3.5-5.0) g/dL 08/12/17 Range/Units 21:40 WBC (3.8-10.6) k/uL RBC (3.80-5.40) m/uL Hgb (11.4-16.0) gm/dL Hct (34.0-46.0) % MCV (80.0-100.0) fL MCH (25.0-35.0) pg MCHC (31.0-37.0) g/dL RDW (11.5-15.5) % Plt Count (150-450) k/uL Neutrophils % % Lymphocytes % % Monocytes % % Eosinophils % % Basophils % % Neutrophils # (1.3-7.7) k/uL Lymphocytes # (1.0-4.8) k/uL Monocytes # (0-1.0) k/uL Eosinophils # (0-0.7) k/uL Basophils # (0-0.2) k/uL Hypochromasia Anisocytosis Macrocytosis PT (9.0-12.0) sec INR (<1.2) APTT (22.0-30.0) sec D-Dimer (<0.60) mg/L FEU Sodium (137-145) mmol/L Potassium (3.5-5.1) mmol/L Chloride (98-107) mmol/L Carbon Dioxide (22-30) mmol/L Anion Gap mmol/L BUN (7-17) mg/dL Creatinine (0.52-1.04) mg/dL Est GFR (MDRD) Af Amer (>60 ml/min/1.73 sqM) Est GFR (MDRD) Non-Af (>60 ml/min/1.73 sqM) Glucose (74-99) mg/dL POC Glucose (mg/dL) (75-99) mg/dL POC Glu Lay Out Former ID Plasma Lactic Acid Ricci (0.7-2.0) mmol/L Calcium (8.4-10.2) mg/dL Total Bilirubin (0.2-1.3) mg/dL AST (14-36) U/L ALT (9-52) U/L Alkaline Phosphatase (38-126) U/L Total Creatine Kinase (30-135) U/L CK-MB (CK-2) (0.0-2.4) ng/mL CK-MB (CK-2) Rel Index Troponin I (0.000-0.034) ng/mL NT-Pro-B Natriuret Pep 3770 pg/mL Total Protein (6.3-8.2) g/dL Albumin (3.5-5.0) g/dL Disposition Clinical Impression: Dyspnea, Elevated d-dimer Disposition: ADMITTED IP TO THIS HOSP Condition: Fair Referrals: Fay Lerner MD [Primary Care Provider] - 1-2 days
[2017-08-12] MEDS ORDERED: NITROGLYCERIN SL TABS 0.4 MG TAB SUBLINGUAL PRN (23:35)
[2017-08-12] MEDS ORDERED: ONDANSETRON ODT 4 MG TAB PO PRN (23:35)
[2017-08-12] MEDS ORDERED: ALPRAZolam 0.25 MG TAB PO PRN (23:35)
[2017-08-12] MEDS ORDERED: FUROSEMIDE 250 MG in SODIUM CHLORIDE 0.9% 225 ML IVP ONE (23:49)
[2017-08-13 00:35] VITALS: BMI 27.4
[2017-08-13 01:36] LABS: Glucose,Whole Blood 205 mg/dL (75-99)
[2017-08-13 03:10] LABS: Appearance,Urine Clear (Clear); Bilirubin,Urine Negative (Negative); Blood,Urine Negative (Negative); Color,Urine Yellow; Glucose,Urine (UA) Negative (Negative); Ketones,Urine Negative (Negative); Leukocyte Esterase,Urine Small (Negative); Mucus,Urine Rare /hpf; Nitrite,Urine Negative (Negative); PH, Urine 5.5 (5.0-8.0); Protein,Urine 1+ (Negative); RBC,Urine 10 /hpf (0-5); Specific Gravity,Urine 1.013 (1.001-1.035); Squamous Epithelial Cell,Urine 1 /hpf (0-4); Urobilinogen,Urine <2.0 mg/dL (<2.0); WBC,Urine 10 /hpf (0-5)
--- NOTE | 2017-08-13 03:35 | NM ---
EXAM: NM Lung Perfusion and Ventilation Scan CLINICAL HISTORY: Reason: Rule out PE TECHNIQUE: Nuclear Medicine ventilation and perfusion images of the lungs were obtained in multiple projections following inhalation of and injection of [id number] MAA. COMPARISON: Chest x-ray dated 08/12/[address] scan dated . FINDINGS: Ventilation: Unremarkable. Unchanged mild patchy ventilation defects. Perfusion: Unremarkable. No significant perfusion defects. IMPRESSION: No findings to suggest pulmonary embolism.
[2017-08-13] MEDS: HYDROcodone/APAP 10-325MG 1 EACH TAB PO PRN ×4 (03:59→21:48)
[2017-08-13] MEDS: LEVOTHYROXINE 25 MCG TAB PO SCH (06:31)
[2017-08-13 07:28] LABS: Glucose,Whole Blood 184 mg/dL (75-99)
[2017-08-13] MEDS: CARVEDILOL 12.5 MG TAB PO SCH ×2 (08:32→17:29)
[2017-08-13] MEDS: GABAPENTIN 100 MG CAP PO SCH ×3 (08:32→20:37)
[2017-08-13] MEDS: LIOTHYRONINE SODIUM 5 MCG TAB PO SCH (08:33)
[2017-08-13] MEDS: PANTOPRAZOLE 40 MG TABLET PO SCH (08:33)
[2017-08-13] MEDS: predniSONE 10 MG TAB PO SCH (08:33)
[2017-08-13] MEDS: REPAGLINIDE 1 MG TAB PO SCH ×2 (08:33→13:27)
[2017-08-13] MEDS: FERROUS SULFATE 325 MG TAB PO SCH ×2 (08:34→17:29)
[2017-08-13] MEDS: METOCLOPRAMIDE 10 MG TAB PO SCH ×3 (08:34→19:31)
[2017-08-13] MEDS: ISOSORBIDE MONONITRATE ER 30 MG TAB.ER.24H PO SCH (08:34)
[2017-08-13] MEDS: MORPHINE SULFATE ER 15 MG TABLET PO SCH ×2 (08:37→20:36)
[2017-08-13] MEDS ORDERED: SODIUM BICARBONATE TAB 650 MG TAB PO SCH (09:00)
[2017-08-13] MEDS ORDERED: FUROSEMIDE 20 MG TAB PO SCH (09:00)
[2017-08-13] MEDS ORDERED: amLODIPine 5 MG TAB PO SCH (09:00)
[2017-08-13 10:59] LABS: Calcium 8.4 mg/dL (8.4-10.2); Potassium 4.4 mmol/L (3.5-5.1)
[2017-08-13 11:37] LABS: Glucose,Whole Blood 260 mg/dL (75-99)
--- NOTE | 2017-08-13 12:40 | P.CRDCN ---
History of Present Illness Consult date: 08/13/17 Consult reason: shortness of breath History of present illness: Mrs. Neves is a pleasant 67-year-old female past medical history significant for dyslipidemia, chronic kidney disease, hypertension, chronic mild stable CAD and diastolic heart failure. She follows with Dr. Perales in the office. We have been asked to see her in consultation for complaints of increased lower extremity swelling. She states she is chronically short of breath and has noticed no increase in that recently. She has however felt increasingly weak and swelling in her legs has been increased. She denies chest pain, palpitations, dizziness, nausea or vomiting. She also denies PND or orthopnea. She feels she has been dehydrated lately with increasingly dry skin. She was initiated on a Lasix drip in the emergency room. Baseline weight on admission 72.5 kg. EKG reveals sinus mechanism with no acute ST or T-wave abnormalities. Chest xary shows cardiomegaly with no evidence of overt heart failure. VQ scan low probability for PE. Laboratory data reviewed, hemoglobin 10.9, platelets 127, d-dimer 1.72, potassium 4.8, BUS and 64, creatinine 1.4, GFR 38, cardiac enzymes negative 1, proBNP 3770. Current cardiac medications include amlodipine 5 mg daily, simvastatin 40 mg daily, Imdur 30 mg daily, Lasix 40 mg daily and carvedilol 25 mg twice a day. Most recent echocardiogram was performed June 2017 reveals preserved left ventricular systolic function with ejection fraction 55-60%, mild concentric left ventricular hypertrophy, mildly enlarged right ventricle, moderately dilated left atrium, mild aortic valve sclerosis, mildly thickened mitral valve , mild TR and evidence of pulmonary hypertension with RVSP less than 35 mmHg. November 2016 reveals calcified left main with mild plaque, mild diffuse atherosclerotic plaque involving the mid LAD, mild athero-sclerotic plaque of the RCA, and circumflex appears calcified. No angioplasty required at that time. Maximum medical therapy recommended. Review of Systems At the time of my exam: CONSTITUTIONAL: Denies fever. Denies chills. EYES: Denies blurred vision. Denies vision changes. Denies eye pain. EARS, NOSE, MOUTH & THROAT: Denies headache. Denies sore throat. Denies ear pain. CARDIOVASCULAR: Denies chest pain. Denies shortness of breath. Denies orthopnea. Denies PND. Denies palpitations. RESPIRATORY: Denies cough. GASTROINTESTINAL: Denies abdominal pain. Denies diarrhea. Denies constipation. Denies nausea. Denies vomiting. MUSCULOSKELETAL: Denies myalgias. INTEGUMENTARY: Denies pruitis. Denies rash. NEUROLOGIC: Denies numbness. Denies tingling. Denies weakness. PSYCHIATRIC: Denies anxiety. Denies depression. ENDOCRINE: Denies fatigue. Denies weight change. Denies polydipsia. Denies polyurina. GENITOURINARY: Denies burning, hematuria or urgency with micturation. HEMATOLOGIC: Denies history of anemia. Denies bleeding. Past Medical History Past Medical History: Coronary Artery Disease (CAD), Heart Failure, Diabetes Mellitus, GERD/Reflux, Hyperlipidemia, Hypertension, Myocardial Infarction (SD) , Pneumonia, Renal Disease, Rheumatoid Arthritis (RA), Thyroid Disorder Additional Past Medical History / Comment(s): Past low vitamin d levels which caused renal deficiency (CKD stage III), per pt, kidney stones, UTIs, parathyroid overactive related to low vit d levels per pt, pt states her vitamin D supplement has been discontinued-levels are now normal, HTN in the past but now off RX, chronic prednisone secondary to RA followed by Dr. Marlow, chronic CHF, NIDDM type II, chronic peripheral neuropathies, chronic low back pain, chronic ANEMIA, hypothyroid, overactive parathyroid, COMPRESSION FX L1, PAST FALLS. Last Myocardial Infarction Date:: 11/2016 History of Any Multi-Drug Resistant Organisms: C-DIFF Date of last positivie culture/infection: 2014 MDRO Source:: C-DIFF Past Surgical History: Back Surgery, Section, Cholecystectomy, Heart Catheterization, Joint Replacement, Orthopedic Surgery, Tubal Ligation Additional Past Surgical History / Comment(s): Right TKA 2, L carpel tunnel release, CYST REMOVED (NECK) AGE 6, 2 back surgery 2004, EGD/colonoscopy. Past Anesthesia/Blood Transfusion Reactions: No Reported Reaction Additional Past Anesthesia/Blood Transfusion Reaction / Comment(s): Blood pressure is labile at times with surgery. Past Psychological History: Anxiety Additional Psychological History / Comment(s): Pt states she has anxiety and uses xanax when needed and it helps. Pt lives with her narayan and adult grandson. She uses a walker to ambulate and also uses a hover round. She has [facility]. Smoking Status: Never smoker Past Alcohol Use History: None Reported Past Drug Use History: None Reported - Past Family History Sister(s) Family Medical History: Cancer, Diabetes Mellitus Additional Family Medical History / Comment(s): 11 siblings, 6 left. One sister had leukemia and another had ovarian cancer. Mother Family Medical History: Cancer, Diabetes Mellitus Additional Family Medical History / Comment(s): Addisons disease, reproductive cancer. Father Family Medical History: Cancer, Hypertension Additional Family Medical History / Comment(s): Father had throat cancer. He was a smoker. He also had anxiety. Medications and Allergies Home Medications Medication Instructions Recorded Confirmed Type Omeprazole [PriLOSEC] 20 mg PO BID 02/20/14 08/12/17 History Cyanocobalamin [Vitamin B-12] 1,000 mcg PO DAILY 08/19/14 08/12/17 History Ondansetron Odt [Zofran ODT] 4 mg PO Q8HR PRN #15 tab 01/04/15 08/12/17 Rx Liothyronine Sodium [Cytomel] 5 mcg PO DAILY 01/07/15 08/12/17 History Levothyroxine Sodium [Synthroid] 25 mcg PO DAILY@0630 tab 01/12/15 08/12/17 Rx ALPRAZolam [Xanax] 0.25 mg PO BID PRN 09/02/16 08/12/17 History Gabapentin [Neurontin] 100 mg PO TID 09/02/16 08/12/17 History Morphine Sulfate ER [Ms Contin] 15 mg PO BID 09/02/16 08/12/17 History HYDROcodone/APAP 10-325MG [Boone 1 tab PO Q4HR PRN 09/25/16 08/12/17 History 10-325] Nitroglycerin Sl Tabs [Nitrostat] 0.4 mg SUBLINGUAL Q5M PRN #25 tab 12/09/1610/24 Rx Isosorbide Mononitrate ER [Imdur] 30 mg PO QAM 01/17/17 08/12/17 History Sodium Bicarbonate Tab 650 mg PO DAILY 03/28/17 08/12/17 History Carvedilol 25 mg PO BID 05/03/17 08/12/17 History Magnesium Oxide [Mag-Ox] 250 mg PO HS 05/03/17 08/12/17 History Simvastatin 40 mg PO HS 05/03/17 08/12/17 History Ferrous Sulfate [Iron (65 MG 325 mg PO BID #0 06/03/17 08/12/17 Rx Elemental)] predniSONE 10 mg PO DAILY tab 06/03/17 08/12/17 Rx Repaglinide [Prandin] 1 mg PO AC-BRKFST 06/09/17 08/12/17 History Repaglinide [Prandin] 2 mg PO AC-LUNCH 06/09/17 08/12/17 History Metoclopramide [Reglan] 10 mg PO AC-TID #90 tab 06/11/17 08/12/17 Rx amLODIPine [Norvasc] 5 mg PO DAILY #30 tab 06/11/17 08/12/17 Rx Furosemide [Lasix] 40 mg PO DAILY 08/12/17 08/12/17 History Allergies Allergy/AdvReac Type Severity Reaction Status Date / Time codeine Allergy Rash/Hives Verified 08/12/17 22:22 Sulfa (Sulfonamide Allergy Rash/Hives Verified 08/12/17 22:22 Antibiotics) gold Allergy Unknown Uncoded 08/12/17 21:08 Physical Exam Vitals: Vital Signs Temp Pulse Pulse Resp BP BP Pulse Ox 08/13/17 03:08 97.2 F L 74 18 176/78 94 L 08/13/17 00:33 97.7 F 80 20 180/78 94 L 08/13/17 00:03 98.0 F 80 18 150/65 94 L 08/12/17 23:22 80 18 156/67 92 L 08/12/17 21:05 97.9 F 72 20 181/74 96 Intake and Output 08/12/17 08/13/17 08/13/17 22:59 06:59 14:59 Other: Voiding Method Bedside Commode Bedpan # Voids 1 Weight 72.575 kg 72.5 kg Blood pressure 176/78 heart rate 74 afebrile GENERAL: This is a 67-year-old female in no apparent distress at the time of my examination. Generalized dry flaking skin. With increased flushing. HEENT: Head is atraumatic, normocephalic. Pupils are equal, round. Sclerae anicteric. Conjunctivae are clear. Mucous membranes of the mouth are moist. Neck is supple. There is no jugular venous distention. No carotid bruit is heard. LUNGS: Faint bibasilar rales. No wheezes or rhonchi. No chest wall tenderness is noted on palpation or with deep breathing. HEART: Regular rate and rhythm with systolic ejection murmur at the base, no rubs or gallops. S1 and S2 heard. ABDOMEN: Soft, nontender. Bowel sounds are heard. No organomegaly noted. EXTREMITIES: Bilateral lower extremity 1+ pitting edema and no calf tenderness noted. VASCULAR: Radial and dorsalis pedis pulses palpated, no evidence of clubbing. NEUROLOGIC: Patient is awake, alert and oriented x3. Results 08/12/17 21:40 08/13/17 10:26 Cardiac Enzymes 08/12/17 08/12/17 Range/Units 21:40 21:40 AST 15 (14-36) U/L CK-MB (CK-2) 1.3 (0.0-2.4) ng/mL Troponin I 0.022 (0.000-0.034) ng/mL Coagulation 08/12/17 Range/Units 21:40 PT 9.6 (9.0-12.0) sec APTT 20.9 L (22.0-30.0) sec CBC 08/12/17 Range/Units 21:40 WBC 8.3 (3.8-10.6) k/uL RBC 3.48 L (3.80-5.40) m/uL Hgb 10.9 L (11.4-16.0) gm/dL Hct 36.5 (34.0-46.0) % Plt Count 127 L (150-450) k/uL Comprehensive Metabolic Panel 08/12/17 Range/Units 21:40 Sodium 145 (137-145) mmol/L Potassium 4.8 (3.5-5.1) mmol/L Chloride 105 (98-107) mmol/L Carbon Dioxide 31 H (22-30) mmol/L BUN 64 H (7-17) mg/dL Creatinine 1.40 H (0.52-1.04) mg/dL Glucose 191 H (74-99) mg/dL Calcium 8.9 (8.4-10.2) mg/dL AST 15 (14-36) U/L ALT 26 (9-52) U/L Alkaline Phosphatase 166 H (38-126) U/L Total Protein 5.3 L (6.3-8.2) g/dL Albumin 3.1 L (3.5-5.0) g/dL Current Medications Generic Name Dose Route Start Last Admin Trade Name Freq PRN Reason Stop Dose Admin Hydrocodone Bitart/Acetaminophen 1 each 08/12/17 23:35 08/13/17 03:59 Boone 10 PO 1 each Q4HR PRN Administration Moderate Pain Alprazolam 0.25 mg 08/12/17 23:35 Xanax PO BID PRN Anxiety Amlodipine Besylate 5 mg 08/13/17 09:00 Norvasc PO DAILY [facility] Atorvastatin Calcium 20 mg 08/13/17 21:00 Lipitor PO HS [facility] Carvedilol 25 mg 08/13/17 07:30 Coreg PO BID-W/MEALS [facility] Cyanocobalamin 1,000 mcg 08/13/17 12:00 Vitamin B-12 PO DAILY@1200 [facility] Ferrous Sulfate 325 mg 08/13/17 07:30 Feosol PO BID-W/MEALS [facility] Gabapentin 100 mg 08/13/17 09:00 Neurontin PO TID [facility] Furosemide 250 mg/ Sodium 250 mls @ 10 mls/hr 08/12/17 23:49 08/13/17 05:23 Chloride IVP 08/13/17 23:48 10 mg/hr .Q24H ONE 10 mls/hr 10 MG/HR Administration Isosorbide Mononitrate 30 mg 08/13/17 09:00 Imdur PO QAM [facility] Levothyroxine Sodium 25 mcg 08/13/17 06:30 08/13/17 06:31 Synthroid PO 25 mcg DAILY@0630 [facility] Administration Liothyronine Sodium 5 mcg 08/13/17 09:00 Cytomel PO DAILY [facility] Magnesium Oxide 200 mg 08/13/17 21:00 Mag-Ox PO HS [facility] Metoclopramide HCl 10 mg 08/13/17 07:30 Reglan PO AC-TID [facility] Morphine Sulfate 15 mg 08/13/17 09:00 Ms Contin PO BID [facility] Nitroglycerin 0.4 mg 08/12/17 23:35 Nitrostat SUBLINGUAL Q5M PRN Chest Pain Ondansetron HCl 4 mg 08/12/17 23:35 Zofran Odt PO Q8HR PRN Nausea Pantoprazole Sodium 40 mg 08/13/17 09:00 Protonix PO DAILY [facility] Prednisone 10 mg 08/13/17 07:30 PO W/BRKFST [facility] Repaglinide 1 mg 08/13/17 07:30 Prandin PO AC-BRKFST [facility] Repaglinide 2 mg 08/13/17 12:30 Prandin PO AC-LUNCH [facility] Sodium Bicarbonate 650 mg 08/13/17 09:00 Sodium Bicarbonate Tab PO DAILY [facility] Intake and Output 08/12/17 08/13/17 08/13/17 22:59 06:59 14:59 Other: Voiding Method Bedside Commode Bedpan # Voids 1 Weight 72.575 kg 72.5 kg 08/12/17 21:40 08/12/17 21:40 Assessment and Plan Assessment: ASSESSMENT 1. Lower extremity edema, possibly secondary to recent steroid dose pack as well as recent addition of amlodipine 2. Chronic diastolic heart failure, currently euvolemic 3. History of coronary artery disease on appropriate medical therapy 4. Hypertension 5. Dyslipidemia 6. Hypothyroidism 7. Chronic kidney disease stage 3 8. Chronic iron deficiency anemia PLAN No evidence of acute heart failure exacerbation. ProBNP elevation appears to be chronic and at her baseline. Possibly secondary to chronic renal failure. Chest xray shows no signs of overt heart failure and she denies shortness of breath with exertion or at rest. Lower extremity swelling may be secondary to recent steroid dose pack or new addition of amlodipine. Lasix drip discontinued. Check BMP now. Continue with carvedilol, imdur and simvastatin as was previously ordered. Discontinue amlodipine and start hydralazine 25 mg TID. Nurse Practitioner note has been reviewed, I agree with a documented findings and plan of care. Patient was seen and examined.
[2017-08-13] MEDS: CYANOCOBALAMIN 500 MCG TAB PO SCH (13:26)
[2017-08-13 13:28] LABS: Hemoglobin A1C 6.2 % (4.0-6.0)
[2017-08-13] MEDS: LINAGLIPTIN 5 MG TABLET PO SCH (13:28)
--- NOTE | 2017-08-13 14:34 | P.HPIM ---
History of Present Illness H&P Date: 08/13/17 This is a 67-year-old female patient of Dr. Lerner with past medical history of rheumatoid arthritis on prednisone and follows with Dr. Marlow, hyperlipidemia, chronic anemia, CKD [address] Cowan, chronic pain syndrome, hypothyroidism, history of coronary artery disease that is post 2 MIs , chronic diastolic heart failure, hypertension, diabetes mellitus type 2, diabetic neuropathy, diabetic gastroparesis, lower back pain with compression fracture L1, chronic anemia and follows with Dr. Guido. Patient was in her normal state of health until she developed increasing weakness to the lower extremities as well as edema and she was unable to walk more than 10 feet as well as shortness of breath and her sugar was running high. She initially had her Lasix dose doubled as well as placed on increased dose of prednisone tapering dose which was gradually decreased. Her normal dose of Lasix is 40 mg every day and prednisone is 10 mg daily. Patient was found to be afebrile with a normal white count. BUN 64 and creatinine 1.4. D-dimer was elevated and VQ scan showed no pulmonary embolism. [facility] and started on an insulin drip. Cardiology, nephrology consults were requested. Last echocardiogram from 06/11/2017 reveals EF of 55-60%, mild concentric left hypertrophy, LA moderately dilated at 34-39, mild aortic valve sclerosis, moderate mitral calcification, mild tricuspid regurgitations. Review of Systems All systems: negative Constitutional: Reports fatigue, Reports weakness, Denies chills, Denies fever Eyes: denies blurred vision, denies pain Ears, nose, mouth and throat: Denies bleeding gums, Denies headache, Denies mouth pain, Denies sore throat Cardiovascular: Reports decreased exercise tolerance, Reports dyspnea on exertion, Reports leg edema, Denies chest pain, Denies lightheadedness, Denies shortness of breath, Denies syncope Respiratory: Reports dyspnea, Denies cough, Denies excessive sputum, Denies hemoptysis Gastrointestinal: Denies abdominal pain, Denies diarrhea, Denies nausea, Denies vomiting Genitourinary: Denies dysuria, Denies hematuria Musculoskeletal: Denies myalgias Integumentary: Denies pruritus, Denies rash Neurological: Denies numbness, Denies weakness Psychiatric: Denies anxiety, Denies depression Endocrine: Denies fatigue, Denies weight change Past Medical History Past Medical History: Coronary Artery Disease (CAD), Heart Failure, Diabetes Mellitus, GERD/Reflux, Hyperlipidemia, Hypertension, Myocardial Infarction ([place]) , Pneumonia, Renal Disease, Rheumatoid Arthritis (RA), Thyroid Disorder Additional Past Medical History / Comment(s): Past low vitamin d levels which caused renal deficiency (CKD stage III), per pt, kidney stones, UTIs, parathyroid overactive related to low vit d levels per pt, pt states her vitamin D supplement has been discontinued-levels are now normal, HTN in the past but now off RX, chronic prednisone secondary to RA followed by Dr. Marlow, chronic CHF, NIDDM type II, chronic peripheral neuropathies, chronic low back pain, chronic ANEMIA, hypothyroid, overactive parathyroid, COMPRESSION FX L1, PAST FALLS. Last Myocardial Infarction Date:: 11/2016 History of Any Multi-Drug Resistant Organisms: C-DIFF Date of last positivie culture/infection: 2014 MDRO Source:: C-DIFF Past Surgical History: Back Surgery, Section, Cholecystectomy, Heart Catheterization, Joint Replacement, Orthopedic Surgery, Tubal Ligation Additional Past Surgical History / Comment(s): Right TKA 2, L carpel tunnel release, CYST REMOVED (NECK) AGE 6, 2 back surgery 2004, EGD/colonoscopy. Past Anesthesia/Blood Transfusion Reactions: No Reported Reaction Additional Past Anesthesia/Blood Transfusion Reaction / Comment(s): Blood pressure is labile at times with surgery. Past Psychological History: Anxiety Additional Psychological History / Comment(s): Pt states she has anxiety and uses xanax when needed and it helps. Pt lives with her narayan and adult grandson. She uses a walker to ambulate and also uses a hover round. She has [facility]. Smoking Status: Never smoker Past Alcohol Use History: None Reported Past Drug Use History: None Reported - Past Family History Sister(s) Family Medical History: Cancer, Diabetes Mellitus Additional Family Medical History / Comment(s): 11 siblings, 6 left. One sister had leukemia and another had ovarian cancer. Mother Family Medical History: Cancer, Diabetes Mellitus Additional Family Medical History / Comment(s): Addisons disease, reproductive cancer. Father Family Medical History: Cancer, Hypertension Additional Family Medical History / Comment(s): Father had throat cancer. He was a smoker. He also had anxiety. Medications and Allergies Home Medications Medication Instructions Recorded Confirmed Type Omeprazole [PriLOSEC] 20 mg PO BID 02/20/14 08/12/17 History Cyanocobalamin [Vitamin B-12] 1,000 mcg PO DAILY 08/19/14 08/12/17 History Ondansetron Odt [Zofran ODT] 4 mg PO Q8HR PRN #15 tab 01/04/15 08/12/17 Rx Liothyronine Sodium [Cytomel] 5 mcg PO DAILY 01/07/15 08/12/17 History Levothyroxine Sodium [Synthroid] 25 mcg PO DAILY@0630 tab 01/12/15 08/12/17 Rx ALPRAZolam [Xanax] 0.25 mg PO BID PRN 09/02/16 08/12/17 History Gabapentin [Neurontin] 100 mg PO TID 09/02/16 08/12/17 History Morphine Sulfate ER [Ms Contin] 15 mg PO BID 09/02/16 08/12/17 History HYDROcodone/APAP 10-325MG [[place] 1 tab PO Q4HR PRN 09/25/16 08/12/17 History 10-325] Nitroglycerin Sl Tabs [Nitrostat] 0.4 mg SUBLINGUAL Q5M PRN #25 tab 12/09/1610/24 Rx Isosorbide Mononitrate ER [Imdur] 30 mg PO QAM 01/17/17 08/12/17 History Sodium Bicarbonate Tab 650 mg PO DAILY 03/28/17 08/12/17 History Carvedilol 25 mg PO BID 05/03/17 08/12/17 History Magnesium Oxide [Mag-Ox] 250 mg PO HS 05/03/17 08/12/17 History Simvastatin 40 mg PO HS 05/03/17 08/12/17 History Ferrous Sulfate [Iron (65 MG 325 mg PO BID #0 06/03/17 08/12/17 Rx Elemental)] predniSONE 10 mg PO DAILY tab 06/03/17 08/12/17 Rx Repaglinide [Prandin] 1 mg PO AC-BRKFST 06/09/17 08/12/17 History Repaglinide [Prandin] 2 mg PO AC-LUNCH 06/09/17 08/12/17 History Metoclopramide [Reglan] 10 mg PO AC-TID #90 tab 06/11/17 08/12/17 Rx amLODIPine [Norvasc] 5 mg PO DAILY #30 tab 06/11/17 08/12/17 Rx Furosemide [Lasix] 40 mg PO DAILY 08/12/17 08/12/17 History Allergies Allergy/AdvReac Type Severity Reaction Status Date / Time codeine Allergy Rash/Hives Verified 08/12/17 22:22 Sulfa (Sulfonamide Allergy Rash/Hives Verified 08/12/17 22:22 Antibiotics) gold Allergy Unknown Uncoded 08/12/17 21:08 Physical Exam Vitals: Vital Signs Temp Pulse Pulse Resp BP BP Pulse Ox 08/13/17 07:00 98.2 F 68 16 155/80 96 08/13/17 03:08 97.2 F L 74 18 176/78 94 L 08/13/17 00:33 97.7 F 80 20 180/78 94 L 08/13/17 00:03 98.0 F 80 18 150/65 94 L 08/12/17 23:22 80 18 156/67 92 L 08/12/17 21:05 97.9 F 72 20 181/74 96 Intake and Output 08/12/17 08/13/17 08/13/17 22:59 06:59 14:59 Other: Voiding Method Bedside Commode Bedpan # Voids 1 Weight 72.575 kg 72.5 kg General appearance: average body habitus, mild distress - EENT Eyes: anicteric sclerae, EOMI, PERRLA, no ptosis, normal appearance ENT: hearing grossly normal, NA/AT, normal oropharynx, no thrush, no tonsillar exudates Ears: bilateral: normal - Neck Neck: no lymphadenopathy, normal ROM, no rigidity, no stridor, no thyromegaly Carotids: bilateral: upstroke normal Thyroid: bilateral: normal size - Respiratory Respiratory: bilateral: diminished, crackles bilaterally. negative: dullness, rales, rhonchi, wheezing, prolonged expiration, prolonged inspiration - Cardiovascular Rhythm: regular Heart sounds: normal: S1, S2 Abnormal Heart Sounds: systolic murmur, no rub, no S3 Gallop, no S4 Gallop, no click - Gastrointestinal General gastrointestinal: normal bowel sounds, soft, no tenderness, no umbilical hernia, no ventral hernia - Integumentary Integumentary: normal, normal turgor - Neurologic Neurologic: CNII-XII intact - Musculoskeletal Musculoskeletal: generalized weakness, strength equal bilaterally - Psychiatric Psychiatric: A&O x's 3, appropriate affect, intact judgment & insight Results CBC & Chem 7: 08/12/17 21:40 08/14/17 08:55 Labs: Abnormal Lab Results - Last 24 Hours (Table) 08/12/17 08/12/17 08/12/17 Range/Units 21:11 21:40 21:40 RBC 3.48 L (3.80-5.40) m/uL Hgb 10.9 L (11.4-16.0) gm/dL MCV 105.0 H (80.0-100.0) fL MCHC 29.8 L (31.0-37.0) g/dL RDW 16.5 H (11.5-15.5) % Plt Count 127 L (150-450) k/uL Lymphocytes # 0.3 L (1.0-4.8) k/uL APTT (22.0-30.0) sec D-Dimer (<0.60) mg/L FEU Carbon Dioxide (22-30) mmol/L BUN (7-17) mg/dL Creatinine (0.52-1.04) mg/dL Glucose (74-99) mg/dL POC Glucose (mg/dL) 182 H (75-99) mg/dL Alkaline Phosphatase (38-126) U/L Total Creatine Kinase <20 L (30-135) U/L Total Protein (6.3-8.2) g/dL Albumin (3.5-5.0) g/dL Urine Protein (Negative) Ur Leukocyte Esterase (Negative) Urine RBC (0-5) /hpf Urine WBC (0-5) /hpf Urine Mucus (None) /hpf 08/12/17 08/12/17 08/13/17 Range/Units 21:40 21:40 01:23 RBC (3.80-5.40) m/uL Hgb (11.4-16.0) gm/dL MCV (80.0-100.0) fL MCHC (31.0-37.0) g/dL RDW (11.5-15.5) % Plt Count (150-450) k/uL Lymphocytes # (1.0-4.8) k/uL APTT 20.9 L (22.0-30.0) sec D-Dimer 1.72 H (<0.60) mg/L FEU Carbon Dioxide 31 H (22-30) mmol/L BUN 64 H (7-17) mg/dL Creatinine 1.40 H (0.52-1.04) mg/dL Glucose 191 H (74-99) mg/dL POC Glucose (mg/dL) 205 H (75-99) mg/dL Alkaline Phosphatase 166 H (38-126) U/L Total Creatine Kinase (30-135) U/L Total Protein 5.3 L (6.3-8.2) g/dL Albumin 3.1 L (3.5-5.0) g/dL Urine Protein (Negative) Ur Leukocyte Esterase (Negative) Urine RBC (0-5) /hpf Urine WBC (0-5) /hpf Urine Mucus (None) /hpf 08/13/17 08/13/17 08/13/17 Range/Units 02:45 07:02 10:26 RBC (3.80-5.40) m/uL Hgb (11.4-16.0) gm/dL MCV (80.0-100.0) fL MCHC (31.0-37.0) g/dL RDW (11.5-15.5) % Plt Count (150-450) k/uL Lymphocytes # (1.0-4.8) k/uL APTT (22.0-30.0) sec D-Dimer (<0.60) mg/L FEU Carbon Dioxide 31 H (22-30) mmol/L BUN 62 H (7-17) mg/dL Creatinine 1.31 H (0.52-1.04) mg/dL Glucose 245 H (74-99) mg/dL POC Glucose (mg/dL) 184 H (75-99) mg/dL Alkaline Phosphatase (38-126) U/L Total Creatine Kinase (30-135) U/L Total Protein (6.3-8.2) g/dL Albumin (3.5-5.0) g/dL Urine Protein 1+ H (Negative) Ur Leukocyte Esterase Small H (Negative) Urine RBC 10 H (0-5) /hpf Urine WBC 10 H (0-5) /hpf Urine Mucus Rare H (None) /hpf Thrombosis Risk Factor Assmnt - DVT/VTE Prophylaxis DVT/VTE Prophylaxis: Pharmacologic Prophylaxis ordered - Choose All That Apply Any of the Below Risk Factors Present?: Yes Each Factor Represents 1 point: Obesity (BMI >25) Other Risk Factors: Yes Each Risk Factor Represents 2 Points: Age 61-74 years Other congenital or acquired thrombophilia - If yes, enter type in comment: No Thrombosis Risk Factor Assessment Total Risk Factor Score: 3 Thrombosis Risk Factor Assessment Level: Moderate Risk Assessment and Plan Plan: 1. Lower extremity edema. Cardiology consult appreciated. Lasix drip discontinued. Amlodipine changed to hydralazine. 2. Acute on chronic diastolic heart failure. Echocardiogram as noted above. Continue Coreg and Imdur. Daily weights and I&O's. 2. Diabetic gastroparesis not currently on medication. On Reglan 10 mg 3 times daily. 3. Chronic iron deficiency anemia. Continue iron 325 mg orally twice every day , vitamin B12. Patient is on Procrit type injections through Dr. Guido with improvement of hemoglobin. 4. Stage III chronic kidney disease. Monitor chemistries, avoid nephrotoxic agents. Continue sodium bicarb 650 mg daily 5. Rheumatoid arthritis. Stable at this time. She is on prednisone 10 mg daily 6. Chronic pain syndrome. Patient has been on MS Contin 15 mg twice a day along with [place] 10/325 g every 4 hours as needed. 7. Hypothyroidism. Continue Cytomel 5 mcg orally daily. 8. Diabetes mellitus type 2. Continue Tradjenta 5 mg daily with BGM AC meals and HS and Prandin. 9. CAD. stable. Continue with Coreg 25 mg orally twice every day, Imdur 30 mg orally once every day, Lipitor 20 mg orally once every day. 10. Hypertension and hypertensive cardiovascular disease. Continue coreg 25 mg orally twice daily, hydralazine 25 mg 3 times daily. Amlodipine discontinued by cardiology. 11. Hyperlipidemia. continue statin. 12. Chronic neuropathy: Mostly idiopathic peripheral neuropathy and diabetic neuropathy as well to continue Neurontin 100 mg 3 times a day. 13. GI prophylaxis. Continue home Protonix 40 milligrams orally once every day. 14. DVT prophylaxis. Heparin 5000 units SC Q 8 h. 15. CODE STATUS: Full code. Patient admitted to the hospital for a minimum of 2 night stay Discharge plan: Most likely home with homecare. Patient is requiring a new walker. Impression and plan of care have been directed as dictated by the signing physician. Nadja Kaur nurse practitioner acting as scribe for signing physician.
[2017-08-13] MEDS: hydrALAZINE HCL 25 MG TAB PO SCH ×2 (17:29→21:42)
[2017-08-13] MEDS: HEPARIN SODIUM,PORCINE 5,000 UNIT/ML 1 ML VIAL SQ SCH ×2 (17:29→23:35)
[2017-08-13 18:10] LABS: Glucose,Whole Blood 307 mg/dL (75-99)
[2017-08-13] MEDS: INSULIN ASPART 100 UNIT/ML 1 ML 10 ML VIAL SQ SCH ×2 (19:30→21:42)
[2017-08-13] MEDS: MAGNESIUM OXIDE 400 MG TAB PO SCH (20:39)
[2017-08-13] MEDS: ATORVASTATIN 20 MG TAB PO SCH (20:39)
[2017-08-13 21:18] LABS: Glucose,Whole Blood 244 mg/dL (75-99)
[2017-08-13] MEDS: FUROSEMIDE 10 MG/ML 4 ML VIAL IV SCH (21:42)
--- NOTE | 2017-08-13 22:56 | CONS ---
CONSULTATION DATE OF CONSULTATION: 08/13/2017 REASON FOR CONSULT: Renal failure. HISTORY OF PRESENT ILLNESS: Patient is a 67-year-old female with history of chronic kidney disease, NKF stage III, secondary to diabetic nephropathy. The patient's baseline creatinine has been at about 1.2 to 1.4 mg/dL. She was admitted to the hospital with complaints of increasing shortness of breath and lower extremity edema. The patient denied any chest pain. No fever or chills. No cough. No nausea, vomiting or abdominal pain. Her chest x-ray showed cardiomegaly with no active lung disease that was noted. Serum creatinine was at 1.4 mg/dL yesterday. Today it is down to 1.3. Patient is currently maintained on a Lasix drip. She states she is feeling better. She has had good urine output. The urine output has not been accurately charted. PAST MEDICAL HISTORY: 1. Hyperlipidemia. 2. Rheumatoid arthritis, maintained on prednisone. 3. Chronic anemia. 4. CKD secondary to diabetic nephropathy, stage III, as mentioned previously. 5. Type 2 diabetes. 6. Diabetic gastroparesis. 7. History of HI. 8. Gastroesophageal reflux disease. 9. Coronary artery disease. 10.History of nephrolithiasis. 11.Compression fractures. 12.History of C difficile colitis. PAST SURGICAL HISTORY: 1. Cholecystectomy. 2. . 3. Heart catheterization. 4. Tubal ligation. 5. Right total knee arthroplasty. 6. Carpal tunnel release. 7. Back surgery. 8. EGD. 9. Colonoscopy. SOCIAL HISTORY: Negative for smoking, drug abuse or alcohol abuse. MEDICATIONS: Medications at home prior to admission included: 1. Prilosec. 2. Vitamin B. 3. Cytomel. 4. Zofran. 5. Xanax. 6. Neurontin. 7. Imdur. 8. Nitrostat. 9. [place]. 10.Sodium bicarb. 11.Coreg. 12.Magnesium. 13.Prednisone. 14.Prandin. 15.Reglan. 16.Norvasc. 17.Lasix. 18.Iron. 19.Simvastatin. 20.Coreg. ALLERGIES: 1. CODEINE, WHICH CAUSES RASH. 2. SULFA CAUSES RASH. PHYSICAL EXAMINATION: Patient is currently comfortable. She is not in any acute distress. She is awake and alert and oriented x3. Blood pressure is 155/80, heart rate 68 per minute. She is afebrile. EXAMINATION OF THE HEART: S1, S2. EXAMINATION OF LUNGS: Bilateral breath sounds are heard. ABDOMEN: Soft, non-tender. Examination of lower extremities shows edema 1+ bilaterally. 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 Patient is moving all 4 extremities. LABS: Sodium 144, potassium 4.4, chloride 106, BUN 62, serum creatinine 1.3. Blood sugar was 245. Hemoglobin yesterday on 08/12 was 10.9. ASSESSMENT: 1. Chronic kidney disease secondary to diabetic nephropathy, NKF stage III, with baseline creatinine about 1.2 to 1.4 mg/dL. 2. Fluid overload, currently maintained on Lasix drip. 3. Hypertension, partly volume-sensitive. 4. Chronic diastolic heart failure; ejection fraction about 50% to 55%. 5. Rheumatoid arthritis, maintained on prednisone. 6. Type 2 diabetes, currently on Tradjenta, Prandin. 7. Chronic anemia, being followed by Hematology as outpatient. 8. Metabolic acidosis, currently maintained on sodium bicarb. Carbon dioxide is in fact on the higher side. I will discontinue the sodium bicarb for now, given the volume overload as well. PLAN: Continue to diurese the patient. Repeat labs in a.m. Agree with discontinuation of amlodipine, given the lower extremity edema. The hydralazine will also cause salt and water retention. Discontinue sodium bicarb. Continue with Lasix. Repeat labs in a.m. Thank you for this consultation. We will continue to follow the patient with you during her hospitalization. MMODL / IJN: [id number] /
[2017-08-14 05:27] LABS: Glucose,Whole Blood 81 mg/dL (75-99)
[2017-08-14 07:13] LABS: Glucose,Whole Blood 103 mg/dL (75-99)
[2017-08-14] MEDS: INSULIN ASPART 100 UNIT/ML 1 ML 10 ML VIAL SQ SCH ×4 (07:51→21:08)
[2017-08-14] MEDS: LINAGLIPTIN 5 MG TABLET PO SCH (07:55)
[2017-08-14] MEDS: REPAGLINIDE 1 MG TAB PO SCH ×3 (07:55→13:12)
[2017-08-14] MEDS: FUROSEMIDE 10 MG/ML 4 ML VIAL IV SCH ×2 (08:54→21:09)
[2017-08-14 09:25] LABS: Calcium 8.8 mg/dL (8.4-10.2); Potassium 4.8 mmol/L (3.5-5.1)
[2017-08-14] MEDS: CARVEDILOL 12.5 MG TAB PO SCH ×2 (09:27→18:04)
[2017-08-14] MEDS: predniSONE 10 MG TAB PO SCH (09:28)
[2017-08-14] MEDS: GABAPENTIN 100 MG CAP PO SCH ×3 (09:28→21:10)
[2017-08-14] MEDS: hydrALAZINE HCL 25 MG TAB PO SCH ×3 (09:28→21:09)
[2017-08-14] MEDS: FERROUS SULFATE 325 MG TAB PO SCH ×2 (09:28→18:04)
[2017-08-14] MEDS: METOCLOPRAMIDE 10 MG TAB PO SCH ×3 (09:28→18:05)
[2017-08-14] MEDS: ISOSORBIDE MONONITRATE ER 30 MG TAB.ER.24H PO SCH (09:29)
[2017-08-14] MEDS: LIOTHYRONINE SODIUM 5 MCG TAB PO SCH (09:29)
[2017-08-14] MEDS: MORPHINE SULFATE ER 15 MG TABLET PO SCH ×2 (09:29→21:07)
[2017-08-14] MEDS: PANTOPRAZOLE 40 MG TABLET PO SCH (09:29)
[2017-08-14] MEDS: HEPARIN SODIUM,PORCINE 5,000 UNIT/ML 1 ML VIAL SQ SCH ×3 (09:30→23:26)
[2017-08-14 11:14] LABS: Glucose,Whole Blood 148 mg/dL (75-99)
[2017-08-14] MEDS: LEVOTHYROXINE 25 MCG TAB PO SCH (11:42)
--- NOTE | 2017-08-14 13:07 | P.PN ---
Subjective Progress Note Date: 08/14/17 Mrs. Neves is seen today in follow-up from initial consultation for b/l lower extremity swelling. Amlodipine was discontinued yesterday and hydralazine was started. Blood pressure this morning 143/62 with heart rate 72. She denies shortness of breath, chest pain, dizziness, palpitations, nausea or vomiting. IV lasix was started per nephrology last night. Creatinine today 1.57 up from 1.31 yesterday. Objective - Vital Signs Vital signs: Vital Signs Temp 97.9 F 08/14/17 09:42 Pulse 68 08/14/17 09:42 Resp 17 08/14/17 09:42 BP 155/68 08/14/17 09:42 Pulse Ox 96 08/14/17 07:00 Intake & Output 08/13/17 08/14/17 08/14/17 18:59 06:59 18:59 Intake Total 50 Balance 50 Weight 72.5 kg Intake: Oral 50 Other: Voiding Method Bedside Commode Bedside Commode Bedpan Bedpan # Voids 1 4 1 - Exam GENERAL: Well-appearing, well-nourished and in no acute distress. Skin dry and flaking with increased generalized redness. NECK: Supple without JVD or thyromegaly. LUNGS: Breath sounds clear to auscultation bilaterally. Respiration equal and unlabored. No wheezes, rales or rhonchi. HEART: Regular rate and rhythm with systolic ejection murmur at the base, no rubs or gallops. S1 and S2 heard. EXTREMITIES: Normal range of motion, trace non-pitting lower extremity edema. No clubbing or cyanosis. Peripheral pulses intact and strong. - Labs CBC & Chem 7: 08/12/17 21:40 08/14/17 08:55 Labs: Abnormal Lab Results - Last 24 Hours (Table) 08/12/17 08/13/17 08/13/17 Range/Units 21:40 11:31 18:08 Carbon Dioxide (22-30) mmol/L BUN (7-17) mg/dL Creatinine (0.52-1.04) mg/dL Glucose (74-99) mg/dL POC Glucose (mg/dL) 260 H 307 H (75-99) mg/dL Hemoglobin A1c 6.2 H (4.0-6.0) % 02/11/2308/14/17 08/14/17 Range/Units 21:10 07:10 08:55 Carbon Dioxide 36 H (22-30) mmol/L BUN 64 H (7-17) mg/dL Creatinine 1.57 H (0.52-1.04) mg/dL Glucose 144 H (74-99) mg/dL POC Glucose (mg/dL) 244 H 103 H (75-99) mg/dL Hemoglobin A1c (4.0-6.0) % Assessment and Plan Assessment: ASSESSMENT 1. Lower extremity edema, possibly secondary to recent steroid dose pack as well as recent addition of amlodipine 2. Chronic diastolic heart failure, currently euvolemic 3. History of coronary artery disease on appropriate medical therapy 4. Hypertension 5. Dyslipidemia 6. Hypothyroidism 7. Chronic kidney disease stage 3 8. Chronic iron deficiency anemia PLAN Improving lower extremity edema after discontinuation of amlodipine. Some element of swelling from chronic use of steroids expected. Worsening renal function. Nephrology to manage diuretics. Continue with hydralazine as ordered yesterday with room for increasing if needed. We will continue to follow as needed. Please call with questions or concerns. Thank you. Nurse Practitioner note has been reviewed, I agree with a documented findings and plan of care. Patient was seen and examined.
[2017-08-14] MEDS: CYANOCOBALAMIN 500 MCG TAB PO SCH (13:11)
[2017-08-14] MEDS: HYDROcodone/APAP 10-325MG 1 EACH TAB PO PRN ×2 (14:15→22:18)
--- NOTE | 2017-08-14 14:46 | P.PN ---
Subjective Progress Note Date: 08/14/17 This is a 67-year-old female patient of Dr. Lerner with past medical history of rheumatoid arthritis on prednisone and follows with Dr. Marlow, hyperlipidemia, chronic anemia, CKD [address] Cowan, chronic pain syndrome, hypothyroidism, history of coronary artery disease that is post 2 MIs , chronic diastolic heart failure, hypertension, diabetes mellitus type 2, diabetic neuropathy, diabetic gastroparesis, lower back pain with compression fracture L1, chronic anemia and follows with Dr. Guido. Patient was in her normal state of health until she developed increasing weakness to the lower extremities as well as edema and she was unable to walk more than 10 feet as well as shortness of breath and her sugar was running high. She initially had her Lasix dose doubled as well as placed on increased dose of prednisone tapering dose which was gradually decreased. Her normal dose of Lasix is 40 mg every day and prednisone is 10 mg daily. Patient was found to be afebrile with a normal white count. BUN 64 and creatinine 1.4. D-dimer was elevated and VQ scan showed no pulmonary embolism. Patient was admitted to the [facility] floor and started on an insulin drip. Cardiology, nephrology consults were requested. Last echocardiogram from 06/11/2017 reveals EF of 55-60%, mild concentric left hypertrophy, LA moderately dilated at 34-39, mild aortic valve sclerosis, moderate mitral calcification, mild tricuspid regurgitation. 08/14: The patient has been seen by cardiology today. They are now following on an as-needed basis. Nephrology is following and managing Lasix. Dr. Cowan has discontinued sodium bicarb. Lasix is currently at 40 mg IV every 12 hours. Patient is to continue her eyedrops from home. Physical therapy requested. Patient is requesting walker for which she will follow up with Dr. Lerner in the office. Anticipate possible discharge by tomorrow. BUN 64 and creatinine 1.57. Her blood glucose running between 81 and 148. Objective - Vital Signs Vital signs: Vital Signs Temp 97.9 F 08/14/17 09:42 Pulse 68 08/14/17 09:42 Resp 17 08/14/17 09:42 BP 155/68 08/14/17 09:42 Pulse Ox 96 08/14/17 07:00 Intake & Output 08/13/17 08/14/17 08/14/17 18:59 06:59 18:59 Intake Total 50 Balance 50 Weight 72.5 kg Intake: Oral 50 Other: Voiding Method Bedside Commode Bedside Commode Bedpan Bedpan # Voids 1 4 1 - Exam General appearance: average body habitus, mild distress - EENT Eyes: anicteric sclerae, EOMI, PERRLA, no ptosis, normal appearance ENT: hearing grossly normal, NA/AT, normal oropharynx, no thrush, no tonsillar exudates Ears: bilateral: normal - Neck Neck: no lymphadenopathy, normal ROM, no rigidity, no stridor, no thyromegaly Carotids: bilateral: upstroke normal Thyroid: bilateral: normal size - Respiratory Respiratory: bilateral: diminished, crackles bilaterally. negative: dullness, rales, rhonchi, wheezing, prolonged expiration, prolonged inspiration - Cardiovascular Rhythm: regular Heart sounds: normal: S1, S2 Abnormal Heart Sounds: systolic murmur, no rub, no S3 Gallop, no S4 Gallop, no click - Gastrointestinal General gastrointestinal: normal bowel sounds, soft, no tenderness, no umbilical hernia, no ventral hernia - Integumentary Integumentary: normal, normal turgor - Neurologic Neurologic: CNII-XII intact - Musculoskeletal Musculoskeletal: generalized weakness, strength equal bilaterally - Psychiatric Psychiatric: A&O x's 3, appropriate affect, intact judgment & insight - Labs CBC & Chem 7: 08/12/17 21:40 08/14/17 08:55 Labs: Abnormal Lab Results - Last 24 Hours (Table) 08/12/17 08/13/17 08/13/17 Range/Units 21:40 11:31 18:08 Carbon Dioxide (22-30) mmol/L BUN (7-17) mg/dL Creatinine (0.52-1.04) mg/dL Glucose (74-99) mg/dL POC Glucose (mg/dL) 260 H 307 H (75-99) mg/dL Hemoglobin A1c 6.2 H (4.0-6.0) % 08/13/17 08/14/17 08/14/17 Range/Units 21:10 07:10 08:55 Carbon Dioxide 36 H (22-30) mmol/L BUN 64 H (7-17) mg/dL Creatinine 1.57 H (0.52-1.04) mg/dL Glucose 144 H (74-99) mg/dL POC Glucose (mg/dL) 244 H 103 H (75-99) mg/dL Hemoglobin A1c (4.0-6.0) % Assessment and Plan Plan: 1. Lower extremity edema. Cardiology consult appreciated. Lasix drip discontinued. Amlodipine changed to hydralazine. 2. Acute on chronic Chronic diastolic heart failure. Echocardiogram as noted above. Continue Coreg and Imdur. Daily weights and I&O's. 2. Diabetic gastroparesis not currently on medication. On Reglan 10 mg 3 times daily. 3. Chronic iron deficiency anemia. Continue iron 325 mg orally twice every day , vitamin B12. Patient is on Procrit type injections through Dr. Guido with improvement of hemoglobin. 4. Stage III chronic kidney disease with metabolic acidosis. Monitor chemistries, avoid nephrotoxic agents. Continue sodium bicarb 650 mg daily 5. Rheumatoid arthritis. Stable at this time. She is on prednisone 10 mg daily 6. Chronic pain syndrome. Patient has been on MS Contin 15 mg twice a day along with [place] 10/325 g every 4 hours as needed. 7. Hypothyroidism. Continue Cytomel 5 mcg orally daily. 8. Diabetes mellitus type 2. Continue Tradjenta 5 mg daily with BGM AC meals and HS and Prandin. 9. CAD. stable. Continue with Coreg 25 mg orally twice every day, Imdur 30 mg orally once every day, Lipitor 20 mg orally once every day. 10. Hypertension and hypertensive cardiovascular disease. Continue coreg 25 mg orally twice daily, hydralazine 25 mg 3 times daily. Amlodipine discontinued by cardiology. 11. Hyperlipidemia. continue statin. 12. Chronic neuropathy: Mostly idiopathic peripheral neuropathy and diabetic neuropathy as well to continue Neurontin 100 mg 3 times a day. 13. GI prophylaxis. Continue home Protonix 40 milligrams orally once every day. 14. DVT prophylaxis. Heparin 5000 units SC Q 8 h. Discharge plan: home with [facility]. Patient is requesting a new walker. Physical therapy evaluation Impression and plan of care have been directed as dictated by the signing physician. Nadja Kaur nurse practitioner acting as scribe for signing physician.
[2017-08-14 17:49] LABS: Glucose,Whole Blood 193 mg/dL (75-99)
[2017-08-14] MEDS: NEOMYCIN-POLYMYXIN-DEXAMETH (3.5-10,000-0.1) DROPS 5 ML BTL RIGHT EYE SCH ×3 (18:11→23:30)
[2017-08-14 20:22] LABS: Glucose,Whole Blood 212 mg/dL (75-99)
[2017-08-14] MEDS: MAGNESIUM OXIDE 400 MG TAB PO SCH (21:08)
[2017-08-14] MEDS: ATORVASTATIN 20 MG TAB PO SCH (21:09)
--- NOTE | 2017-08-14 22:33 | PN ---
PROGRESS NOTE Patient is seen for followup for acute kidney injury. She was admitted to the hospital with fluid overload. She is maintained on IV Lasix. Patient states she is feeling much better, has had sacroiliac diuresis. EXAMINATION: Blood pressure this morning was 155/68. She is afebrile, heart rate 74 per minute. HEART: S1, S2. LUNGS: Bilateral breath sounds are heard. ABDOMEN: Soft, obese. Lower extremities show chronic skin changes with significant reduction in edema and wrinkling of the skin noted. There is still edema, but significantly improved since yesterday. [employer] is grossly intact. No focal deficits are noted. SKIN: As stated. LABS: Show sodium 144, potassium 4.8, chloride 102, CO2 36, BUN 64, serum creatinine 1.57. ASSESSMENT: 1. Acute kidney injury, mainly cardiorenal. I will decrease the Lasix. 2. Volume overload, currently improved. 3. Chronic kidney disease secondary to diabetic nephropathy, [employer] Stage III with baseline creatinine 1.2-1.4. 4. Chronic diastolic heart failure, ejection fraction 50%-55%. 5. History of metabolic acidosis, currently off of sodium bicarb. The patient is not acidotic and it will help decrease some of the sodium load. 6. Hypertension, partly volume sensitive. PLAN: Decrease Lasix. Will likely switch to oral Lasix tomorrow and repeat labs in a.m. MMODL / IJN: [id number] /
[2017-08-14 23:55] LABS: Glucose,Whole Blood 174 mg/dL (75-99)
[2017-08-15] MEDS: NEOMYCIN-POLYMYXIN-DEXAMETH (3.5-10,000-0.1) DROPS 5 ML BTL RIGHT EYE SCH ×3 (04:15→12:34)
[2017-08-15] MEDS: LEVOTHYROXINE 25 MCG TAB PO SCH (06:16)
[2017-08-15] MEDS: LINAGLIPTIN 5 MG TABLET PO SCH (07:21)
[2017-08-15] MEDS: CARVEDILOL 12.5 MG TAB PO SCH (07:21)
[2017-08-15] MEDS: GABAPENTIN 100 MG CAP PO SCH (07:21)
[2017-08-15] MEDS: FERROUS SULFATE 325 MG TAB PO SCH (07:21)
[2017-08-15] MEDS: REPAGLINIDE 1 MG TAB PO SCH ×2 (07:21→12:34)
[2017-08-15] MEDS: predniSONE 10 MG TAB PO SCH (07:21)
[2017-08-15] MEDS: MORPHINE SULFATE ER 15 MG TABLET PO SCH (07:22)
[2017-08-15] MEDS: METOCLOPRAMIDE 10 MG TAB PO SCH ×2 (07:22→12:35)
[2017-08-15] MEDS: PANTOPRAZOLE 40 MG TABLET PO SCH (07:22)
[2017-08-15] MEDS: ISOSORBIDE MONONITRATE ER 30 MG TAB.ER.24H PO SCH (07:23)
[2017-08-15] MEDS: hydrALAZINE HCL 25 MG TAB PO SCH (07:23)
[2017-08-15] MEDS: HEPARIN SODIUM,PORCINE 5,000 UNIT/ML 1 ML VIAL SQ SCH (07:23)
[2017-08-15] MEDS: LIOTHYRONINE SODIUM 5 MCG TAB PO SCH (07:23)
[2017-08-15 07:27] LABS: Glucose,Whole Blood 80 mg/dL (75-99)
[2017-08-15] MEDS: INSULIN ASPART 100 UNIT/ML 1 ML 10 ML VIAL SQ SCH ×2 (07:36→12:35)
[2017-08-15 07:52] VITALS: BP 192/80; PULSE 73; RESP 16; TEMP 97.9
[2017-08-15 08:23] LABS: Basophils % (A) 0 %; Eosinophils # (A) 0.1 k/uL (0-0.7); Eosinophils % (A) 2 %; HCT 36.3 % (34.0-46.0); HGB 11.1 gm/dL (11.4-16.0); Hypochromasia Marked; Lymphocytes # (A) 0.7 k/uL (1.0-4.8); Lymphocytes % (A) 11 %; MCH 32.1 pg (25.0-35.0); MCHC 30.7 g/dL (31.0-37.0); MCV 104.6 fL (80.0-100.0); Macrocytosis Moderate; Mean Platelet Volume 7.8; Monocytes # (A) 0.5 k/uL (0-1.0); Monocytes % (A) 7 %; Neutrophils # (A) 5.1 k/uL (1.3-7.7); Neutrophils % (A) 78 %; Platelet Count 124 k/uL (150-450); RBC 3.48 m/uL (3.80-5.40); RDW 15.2 % (11.5-15.5); WBC 6.5 k/uL (3.8-10.6)
[2017-08-15 09:04] LABS: Albumin 2.9 g/dL (3.5-5.0); Calcium 8.9 mg/dL (8.4-10.2); Potassium 4.5 mmol/L (3.5-5.1); Total Bilirubin 0.6 mg/dL (0.2-1.3); Total Protein 5.1 g/dL (6.3-8.2)
[2017-08-15] MEDS: HYDROcodone/APAP 10-325MG 1 EACH TAB PO PRN (09:51)
[2017-08-15 11:10] LABS: Glucose,Whole Blood 167 mg/dL (75-99)
[2017-08-15] MEDS: CYANOCOBALAMIN 500 MCG TAB PO SCH (12:34)
--- NOTE | 2017-08-15 14:14 | P.DS ---
Providers Date of admission: 08/12/17 23:32 Expected date of discharge: 08/15/17 Attending physician: Fay Lerner Consults: 08/12/17 23:50 Consult Physician Stat Consulting Provider: Reanna Cowan Consult Reason/Comments: Acute and chronic renal failure Do you want consulting provider notified?: Yes 08/12/17 23:51 Consult Physician Stat Consulting Provider: Jillian Green Consult Reason/Comments: Shortness of breath Do you want consulting provider notified?: Yes Primary care physician: Fay Lerner [place] [facility] Course: This is a 67-year-old female patient of Dr. Lerner with past medical history of rheumatoid arthritis on prednisone and follows with Dr. Marlow, hyperlipidemia, chronic anemia, CKD [address] Cowan, chronic pain syndrome, hypothyroidism, history of coronary artery disease that is post 2 MIs , chronic diastolic heart failure, hypertension, diabetes mellitus type 2, diabetic neuropathy, diabetic gastroparesis, lower back pain with compression fracture L1, chronic anemia and follows with Dr. Guido. Patient was in her normal state of health until she developed increasing weakness to the lower extremities as well as edema and she was unable to walk more than 10 feet as well as shortness of breath and her sugar was running high. She initially had her Lasix dose doubled as well as placed on increased dose of prednisone tapering dose which was gradually decreased. Her normal dose of Lasix is 40 mg every day and prednisone is 10 mg daily. Patient was found to be afebrile with a normal white count. BUN 64 and creatinine 1.4. D-dimer was elevated and VQ scan showed no pulmonary embolism. [facility] and started on an insulin drip. Cardiology, nephrology consults were requested. Last echocardiogram from 06/11/2017 reveals EF of 55-60%, mild concentric left hypertrophy, LA moderately dilated at 34-39, mild aortic valve sclerosis, moderate mitral calcification, mild tricuspid regurgitation. 08/14: The patient has been seen by cardiology today. They are now following on an as-needed basis. Nephrology is following and managing Lasix. Dr. Cowan has discontinued sodium bicarb. Lasix is currently at 40 mg IV every 12 hours. Patient is to continue her eyedrops from home. Physical therapy requested. Patient is requesting walker for which she will follow up with Dr. Lerner in the office. Anticipate possible discharge by tomorrow. BUN 64 and creatinine 1.57. Her blood glucose running between 81 and 148. 08/15: BUN 70 and creatinine 1.48. Her blood glucose running between 80 and 212. Alkaline phosphatase 136. Lower extremity edema is improved. Patient will be discharged home today in stable condition. Discharge diagnoses: 1. Lower extremity edema. Cardiology attributes to amlodipine. 2. Acute on chronic Chronic diastolic heart failure. 3. Diabetic gastroparesis 4. Chronic iron deficiency anemia. 5. Stage III chronic kidney disease with metabolic acidosis. 6. Rheumatoid arthritis. 7. Chronic pain syndrome. 8. Hypothyroidism. 9. Diabetes mellitus type 2. 10. CAD. stable. 11. Hypertension and hypertensive cardiovascular disease. 12. Hyperlipidemia. 13. Chronic neuropathy: Mostly idiopathic peripheral neuropathy and diabetic neuropathy Discharge plan: home with [facility]. Patient is requesting a new walker. Impression and plan of care have been directed as dictated by the signing physician. Nadja Kaur nurse practitioner acting as scribe for signing physician. Patient Condition at Discharge: Good Plan - Discharge Summary Discharge Rx Participant: No New Discharge Prescriptions: New hydrALAZINE HCL [Apresoline] 25 mg PO TID #90 tab Linagliptin [Tradjenta] 5 mg PO DAILY tablet Nuczasil-Yulgdhlol-Fxltsemx [Maxitrol Ophth Susp] 1 drops RIGHT EYE Q4HR bottle Continue Omeprazole [PriLOSEC] 20 mg PO BID Cyanocobalamin [Vitamin B-12] 1,000 mcg PO DAILY Ondansetron Odt [Zofran ODT] 4 mg PO Q8HR PRN #15 tab PRN Reason: Nausea Liothyronine Sodium [Cytomel] 5 mcg PO DAILY Levothyroxine Sodium [Synthroid] 25 mcg PO DAILY@0630 tab Morphine Sulfate ER [Ms Contin] 15 mg PO BID Gabapentin [Neurontin] 100 mg PO TID ALPRAZolam [Xanax] 0.25 mg PO BID PRN PRN Reason: Anxiety HYDROcodone/APAP 10-325MG [[place] 10-325] 1 tab PO Q4HR PRN PRN Reason: Moderate Pain Nitroglycerin Sl Tabs [Nitrostat] 0.4 mg SUBLINGUAL Q5M PRN #25 tab PRN Reason: Chest Pain Isosorbide Mononitrate ER [Imdur] 30 mg PO QAM Sodium Bicarbonate Tab 650 mg PO DAILY Simvastatin 40 mg PO HS Magnesium Oxide [Mag-Ox] 250 mg PO HS Carvedilol 25 mg PO BID predniSONE 10 mg PO DAILY tab Ferrous Sulfate [Iron (65 MG Elemental)] 325 mg PO BID #0 Repaglinide [Prandin] 2 mg PO AC-LUNCH Repaglinide [Prandin] 1 mg PO AC-BRKFST Metoclopramide [Reglan] 10 mg PO AC-TID #90 tab Furosemide [Lasix] 40 mg PO DAILY Discontinued amLODIPine [Norvasc] 5 mg PO DAILY #30 tab Discharge Medication List Omeprazole [PriLOSEC] 20 mg PO BID 02/20/14 [History] Cyanocobalamin [Vitamin B-12] 1,000 mcg PO DAILY 08/19/14 [History] Ondansetron Odt [Zofran ODT] 4 mg PO Q8HR PRN #15 tab 01/04/15 [Rx] Liothyronine Sodium [Cytomel] 5 mcg PO DAILY 01/07/15 [History] Levothyroxine Sodium [Synthroid] 25 mcg PO DAILY@0630 tab 01/12/15 [Rx] ALPRAZolam [Xanax] 0.25 mg PO BID PRN 09/02/16 [History] Gabapentin [Neurontin] 100 mg PO TID 09/02/16 [History] Morphine Sulfate ER [Ms Contin] 15 mg PO BID 09/02/16 [History] HYDROcodone/APAP 10-325MG [[place] 10-325] 1 tab PO Q4HR PRN 09/25/16 [History] Nitroglycerin Sl Tabs [Nitrostat] 0.4 mg SUBLINGUAL Q5M PRN #25 tab 12/09/16 [Rx ] Isosorbide Mononitrate ER [Imdur] 30 mg PO QAM 01/17/17 [History] Sodium Bicarbonate Tab 650 mg PO DAILY 03/28/17 [History] Carvedilol 25 mg PO BID 05/03/17 [History] Magnesium Oxide [Mag-Ox] 250 mg PO HS 05/03/17 [History] Simvastatin 40 mg PO HS 05/03/17 [History] Ferrous Sulfate [Iron (65 MG Elemental)] 325 mg PO BID #0 06/03/17 [Rx] predniSONE 10 mg PO DAILY tab 06/03/17 [Rx] Repaglinide [Prandin] 1 mg PO AC-BRKFST 06/09/17 [History] Repaglinide [Prandin] 2 mg PO AC-LUNCH 06/09/17 [History] Metoclopramide [Reglan] 10 mg PO AC-TID #90 tab 06/11/17 [Rx] Furosemide [Lasix] 40 mg PO DAILY 08/12/17 [History] Linagliptin [Tradjenta] 5 mg PO DAILY tablet 08/15/17 [Rx] Rthwzhol-Uuqenuozn-Wsmzxjon [Maxitrol Ophth Susp] 1 drops RIGHT EYE Q4HR bottle 08/15/17 [Rx] hydrALAZINE HCL [Apresoline] 25 mg PO TID #90 tab 08/15/17 [Rx] Follow up Appointment(s)/Referral(s): [facility] [Provider Group] - 2 Weeks ([facility] WILL CALL PATIENT TO SCHEDULE APPT.) Reanna Cowan MD [STAFF PHYSICIAN] - 08/23/17 11:20 am Fay Lerner MD [Primary Care Provider] - 08/23/17 2:45 pm [facility], [NON-STAFF] - As Needed Discharge Disposition: HOME WITH HOME HEALTH SERVICES
== END 2017-08-15 13:50 | disposition home health service (06) | DRG 291 ==
LOC: EC 20:50 → 5MS5E 23:32
PROVIDERS: ADMIT Family Medicine; ATTEND Family Medicine
DX: I13.0 Hypertensive heart and chronic kidney disease with heart failure and stage 1 through stage 4 chronic kidney disease, or unspecified chronic kidney disease (principal); I50.33 Acute on chronic diastolic (congestive) heart failure; N17.9 Acute kidney failure, unspecified; E87.2 Acidosis; K31.84 Gastroparesis; E11.21 Type 2 diabetes mellitus with diabetic nephropathy; I27.20 Pulmonary hypertension, unspecified; E11.43 Type 2 diabetes mellitus with diabetic autonomic (poly)neuropathy; D50.9 Iron deficiency anemia, unspecified; E03.9 Hypothyroidism, unspecified; E11.22 Type 2 diabetes mellitus with diabetic chronic kidney disease; E66.9 Obesity, unspecified; E78.5 Hyperlipidemia, unspecified; F41.9 Anxiety disorder, unspecified; G60.9 Hereditary and idiopathic neuropathy, unspecified; G89.4 Chronic pain syndrome; I25.10 Atherosclerotic heart disease of native coronary artery without angina pectoris; I35.8 Other nonrheumatic aortic valve disorders; I36.1 Nonrheumatic tricuspid (valve) insufficiency; K21.9 Gastro-esophageal reflux disease without esophagitis; M06.9 Rheumatoid arthritis, unspecified; N18.3 Chronic kidney disease, stage 3 (moderate); Z79.52 Long term (current) use of systemic steroids; Z79.899 Other long term (current) drug therapy; Z80.41 Family history of malignant neoplasm of ovary; Z80.6 Family history of leukemia; Z80.8 Family history of malignant neoplasm of other organs or systems; Z82.49 Family history of ischemic heart disease and other diseases of the circulatory system; Z83.3 Family history of diabetes mellitus; Z86.19 Personal history of other infectious and parasitic diseases; Z87.442 Personal history of urinary calculi; Z96.651 Presence of right artificial knee joint; Z88.5 Allergy status to narcotic agent; Z88.2 Allergy status to sulfonamides
CPT/HCPCS: 36415; 71046; 78582; 80048; 80053; 81001; 82550; 82553; 83036; 83605; 83880; 84484; 85025; 85379; 85610; 85730; 93005; 99285

== ENCOUNTER 2017-08-21 06:23 | Inpatient (IN) | payer MEDICARE, BC ==
[2017-08-21] MEDS ORDERED: KETOROLAC 60 MG/2 ML VIAL IVP STA (06:24)
[2017-08-21] MEDS ORDERED: ONDANSETRON 4 MG/2 ML VIAL IVP STA (06:24)
[2017-08-21] MEDS ORDERED: HYDROmorphone 0.5 MG/0.5 ML SYRINGE IVP STA (06:24)
--- NOTE | 2017-08-21 06:27 | ED ---
General Adult HPI - General Source: RN notes reviewed <Dandy Arango - Last Filed: 08/21/17 07:22> <Dandy Virk - Last Filed: 08/21/17 09:42> - General Stated complaint: knee pain Time Seen by Provider: 08/21/17 06:23 - History of Present Illness Initial comments: This is a 67-year-old female presents emergency Department complaining of right knee pain. Patient states she's had knee replacement of that knee in the past. Patient states today she was walking and fell and twisted her knee. Patient states the pain is superior and lateral to the kneecap. Patient denies any ankle pain patient denies hip pain. Patient has noted some swelling of the knee since the injury. Patient states she just took her home meds prior to arrival. Patient patient denies any lightheadedness or dizziness she just twisted her knee all walking. (Dandy Arango) - Related Data Home Medications Medication Instructions Recorded Confirmed Omeprazole [PriLOSEC] 20 mg PO BID 02/20/14 08/21/17 Cyanocobalamin [Vitamin B-12] 1,000 mcg PO DAILY 08/19/14 08/21/17 Liothyronine Sodium [Cytomel] 5 mcg PO DAILY 01/07/15 08/21/17 ALPRAZolam [Xanax] 0.25 mg PO BID PRN 09/02/16 08/21/17 Gabapentin [Neurontin] 100 mg PO TID 09/02/16 08/21/17 Morphine Sulfate ER [Ms Contin] 15 mg PO BID 09/02/16 08/21/17 HYDROcodone/APAP 10-325MG [[place] 1 tab PO Q4HR PRN 09/25/16 08/21/17 10-325] Isosorbide Mononitrate ER [Imdur] 30 mg PO QAM 01/17/17 08/21/17 Sodium Bicarbonate Tab 650 mg PO DAILY 03/28/17 08/21/17 Carvedilol 25 mg PO BID 05/03/17 08/21/17 Magnesium Oxide [Mag-Ox] 250 mg PO HS 05/03/17 08/21/17 Simvastatin 40 mg PO HS 05/03/17 08/21/17 Repaglinide [Prandin] 1 mg PO AC-BRKFST 06/09/17 08/21/17 Repaglinide [Prandin] 2 mg PO AC-LUNCH 06/09/17 08/21/17 Furosemide [Lasix] 40 mg PO DAILY 08/12/17 08/21/17 Insulin Glargine,Hum.rec.anlog 8 units SQ DAILY 08/21/17 08/21/17 [Jaclyn Azevedo] Previous Rx's Medication Instructions Recorded Ondansetron Odt [Zofran ODT] 4 mg PO Q8HR PRN #15 tab 01/04/15 Levothyroxine Sodium [Synthroid] 25 mcg PO DAILY@0630 tab 01/12/15 Nitroglycerin Sl Tabs [Nitrostat] 0.4 mg SUBLINGUAL Q5M PRN #25 tab 12/09/16 Ferrous Sulfate [Iron (65 MG 325 mg PO BID #0 06/03/17 Elemental)] predniSONE 10 mg PO DAILY tab 06/03/17 Metoclopramide [Reglan] 10 mg PO AC-TID #90 tab 06/11/17 Linagliptin [Tradjenta] 5 mg PO DAILY tablet 08/15/17 Xdbljptk-Rohkmelrx-Rdcnstmv 1 drops RIGHT EYE Q4HR bottle 08/15/17 [Maxitrol Ophth Susp] hydrALAZINE HCL [Apresoline] 25 mg PO TID #90 tab 08/15/17 Allergies Allergy/AdvReac Type Severity Reaction Status Date / Time codeine Allergy Rash/Hives Verified 08/21/17 07:59 Sulfa (Sulfonamide Allergy Rash/Hives Verified 08/21/17 07:59 Antibiotics) gold Allergy Unknown Uncoded 08/21/17 06:29 Review of Systems ROS Other: All systems not noted in ROS Statement are negative. <Dandy Arango - Last Filed: 08/21/17 07:22> ROS Other: All systems not noted in ROS Statement are negative. <Dandy Virk - Last Filed: 08/21/17 09:42> ROS Statement: Those systems with pertinent positive or pertinent negative responses have been documented in the HPI. Past Medical History Past Medical History: Coronary Artery Disease (CAD), Heart Failure, Diabetes Mellitus, GERD/Reflux, Hyperlipidemia, Hypertension, Myocardial Infarction (ME) , Pneumonia, Renal Disease, Rheumatoid Arthritis (RA), Thyroid Disorder Additional Past Medical History / Comment(s): Past low vitamin d levels which caused renal deficiency (CKD stage III), per pt, kidney stones, UTIs, parathyroid overactive related to low vit d levels per pt, pt states her vitamin D supplement has been discontinued-levels are now normal, HTN in the past but now off RX, chronic prednisone secondary to RA followed by Dr. Marlow, chronic CHF, NIDDM type II, chronic peripheral neuropathies, chronic low back pain, chronic ANEMIA, hypothyroid, overactive parathyroid, COMPRESSION FX L1, PAST FALLS. Last Myocardial Infarction Date:: 11/2016 History of Any Multi-Drug Resistant Organisms: C-DIFF Date of last positivie culture/infection: 2014 MDRO Source:: C-DIFF Past Surgical History: Back Surgery, Section, Cholecystectomy, Heart Catheterization, Joint Replacement, Orthopedic Surgery, Tubal Ligation Additional Past Surgical History / Comment(s): Right TKA 2, L carpel tunnel release, CYST REMOVED (NECK) AGE 6, 2 back surgery 2004, EGD/colonoscopy. Past Anesthesia/Blood Transfusion Reactions: No Reported Reaction Additional Past Anesthesia/Blood Transfusion Reaction / Comment(s): Blood pressure is labile at times with surgery. Past Psychological History: Anxiety Additional Psychological History / Comment(s): Pt states she has anxiety and uses xanax when needed and it helps. Pt lives with her narayan and adult grandson. She uses a walker to ambulate and also uses a hover round. She has [facility]. Smoking Status: Never smoker Past Alcohol Use History: None Reported Past Drug Use History: None Reported - Past Family History Sister(s) Family Medical History: Cancer, Diabetes Mellitus Additional Family Medical History / Comment(s): 11 siblings, 6 left. One sister had leukemia and another had ovarian cancer. Mother Family Medical History: Cancer, Diabetes Mellitus Additional Family Medical History / Comment(s): Addisons disease, reproductive cancer. Father Family Medical History: Cancer, Hypertension Additional Family Medical History / Comment(s): Father had throat cancer. He was a smoker. He also had anxiety. <Dandy Arango - Last Filed: 08/21/17 07:22> General Exam <Dandy Arango - Last Filed: 08/21/17 07:22> <Dandy Virk - Last Filed: 08/21/17 09:42> - General Exam Comments Initial Comments: GENERAL Patient is well-developed and well-nourished. Patient is in mild distress. EYES Patient's pupils are equal and round. Extraocular motion is intact SKIN Unremarkable NEURO The patient is alert and oriented 3 PYSCH Patient has normal interpersonal interactions. MUSCULOSKELETAL Right knee has some effusion superior and lateral to the kneecap. Moving the knee anteriorly is causing her quite a bit of pain or palpating the area of effusion causes her significant pain (Dandy Arango) Vital Signs 08/21/17 08/21/17 06:25 08:00 Temperature 96.8 F L Pulse Rate 85 82 Respiratory 20 16 Rate Blood Pressure 147/67 106/53 O2 Sat by Pulse 94 L 92 L Oximetry Medical Decision Making <Dandy Arango - Last Filed: 08/21/17 07:22> <Dandy Virk - Last Filed: 08/21/17 09:42> - Medical Decision Making X-ray shows a proximal tib-fib fracture. Dr. Virk taking care of this patient at 7 AM (Dandy Arango) Disposition <Dandy Arango - Last Filed: 08/21/17 07:22> <Dandy Virk - Last Filed: 08/21/17 09:42> Clinical Impression: Fall, Knee fracture, right Disposition: ADMITTED IP TO THIS [facility] Condition: Fair Referrals: Fay Lerner MD [Primary Care Provider] - 1-2 days
--- NOTE | 2017-08-21 07:36 | XR ---
EXAM: XR Right Knee, 3 views. CLINICAL HISTORY: Pain TECHNIQUE: Three views of the right knee. COMPARISON: No relevant prior studies available. FINDINGS: Bones: Suspected minimally displaced fracture of the distal femur, best visualized on frontal view. Nondisplaced fractures of the proximal fibula and tibia. Joints: Total right knee prosthesis in place. No evidence of hardware failure or loosening. Soft tissues: Severe atherosclerotic calcifications. Can soft tissue swelling. IMPRESSION: Nondisplaced fractures of the proximal tibia and fibula. Suspected nondisplaced fracture through the distal femur. If there is concern for acute fracture following trauma, consider further evaluation with CT of the knee. Right knee prosthesis without evidence of hardware failure, loosening or dislocation.
--- NOTE | 2017-08-21 07:38 | XR ---
EXAM: XR Pelvis, 1 or 2 Views. CLINICAL HISTORY: Reason: Pain TECHNIQUE: Frontal view of the pelvis. COMPARISON: No relevant prior studies available. FINDINGS: Bones: There is no evidence of acute fracture. Diffuse osteoporosis. Joints: No dislocation. Severe degenerative changes of both hip joints, with loss of normal rounded femoral contour. Soft tissues: Severe atherosclerotic calcification of pelvic vessels. IMPRESSION: No evidence of acute fracture or dislocation. Severe degenerative changes of the hip joints.
[2017-08-21] MEDS: HYDROmorphone 0.5 MG/0.5 ML SYRINGE IVP STA ×3 (08:08→08:11)
[2017-08-21] MEDS ORDERED: SODIUM CHLORIDE 0.9% 1,000 ML IV ONE (09:40)
[2017-08-21] MEDS ORDERED: NITROGLYCERIN SL TABS 0.4 MG TAB SUBLINGUAL PRN (11:17)
[2017-08-21] MEDS ORDERED: ONDANSETRON ODT 4 MG TAB PO PRN (11:17)
[2017-08-21] MEDS ORDERED: HYDROmorphone 0.5 MG/0.5 ML SYRINGE IVP PRN (11:20)
[2017-08-21 11:23] LABS: Glucose,Whole Blood 203 mg/dL (75-99)
[2017-08-21] MEDS: HYDROcodone/APAP 10-325MG 1 EACH TAB PO PRN ×2 (11:57→15:59)
[2017-08-21 12:09] LABS: Albumin 2.6 g/dL (3.5-5.0); Calcium 8.1 mg/dL (8.4-10.2); Potassium 5.5 mmol/L (3.5-5.1); Total Bilirubin 0.7 mg/dL (0.2-1.3); Total Protein 4.7 g/dL (6.3-8.2)
[2017-08-21 12:14] LABS: HCT 29.5 % (34.0-46.0); Hypochromasia Marked; MCH 31.4 pg (25.0-35.0); MCHC 30.4 g/dL (31.0-37.0); MCV 103.3 fL (80.0-100.0); Macrocytosis Slight; Mean Platelet Volume 8.2; Platelet Count 116 k/uL (150-450); RBC 2.86 m/uL (3.80-5.40); RDW 14.6 % (11.5-15.5); WBC 12.4 k/uL (3.8-10.6)
--- NOTE | 2017-08-21 12:53 | P.CONS ---
History of Present Illness - Reason for Consult Consult date: 08/21/17 - History of Present Illness This is a 67-year-old female patient of Dr. Lerner with past medical history of rheumatoid arthritis on prednisone and follows with Dr. Marlow, hyperlipidemia, chronic anemia, CKD [address] Cowan, chronic pain syndrome, hypothyroidism, history of coronary artery disease that is post 2 MIs , chronic diastolic heart failure, hypertension, diabetes mellitus type 2, diabetic neuropathy, diabetic gastroparesis, lower back pain with compression fracture L1, chronic anemia and follows with Dr. uGido, patient woke up in the morning and she was trying to walk and she suddenly fell down and landed on the right leg, she stood up and she walked a few steps, her blood glucose level was around 64, patient ended up coming to the ER for evaluation she was found to have a distal femur fracture with nondisplaced proximal fibula and tibia fracture, she was placed in immobilizer she was admitted under orthopedic service and we were asked to see the patient in consultation for medical management. Review of Systems Constitutional: Reports chronic headaches, Reports chronic pain, Reports fatigue , Reports malaise, Reports weakness, Denies weight gain, Denies weight loss Eyes: denies blurred vision, denies bulging eye, denies decreased vision Ears: deny: decreased hearing Ears, nose, mouth and throat: Denies dysphagia, Denies neck lump, Denies swelling in throat, Denies sore throat, Denies vertigo Cardiovascular: Reports decreased exercise tolerance, Reports dyspnea on exertion, Reports high blood pressure, Reports shortness of breath, Denies chest pain, Denies rapid heart beat, Denies syncope Respiratory: Denies congestion, Denies cough, Denies cough with sputum, Denies home oxygen, Denies sleep apnea, Denies snoring, Denies wheezing Gastrointestinal: Denies abdominal pain, Denies BRBPR, Denies diarrhea, Denies excessive gas, Denies heartburn, Denies melena, Denies nausea, Denies vomiting Genitourinary: Reports as per HPI Menstruation: Reports postmenopausal Musculoskeletal: Reports fractures, Reports gait dysfunction Musculoskeletal: right: knee pain, knee stiffness, knee swelling, absent: ankle pain, ankle stiffness, ankle swelling, elbow pain, elbow stiffness, elbow swelling, foot pain, foot stiffness, foot swelling, hand pain, hand stiffness, hand swelling, hip pain, hip stiffness, hip swelling, shoulder pain, shoulder stiffness, shoulder swelling, wrist pain, wrist stiffness, wrist swelling Integumentary: Denies pruritus, Denies rash Neurological: Denies numbness, Denies weakness Psychiatric: Denies anxiety, Denies depression Endocrine: Denies fatigue, Denies weight change Past Medical History Past Medical History: Coronary Artery Disease (CAD), Heart Failure, Diabetes Mellitus, GERD/Reflux, Hyperlipidemia, Hypertension, Myocardial Infarction ([place]) , Pneumonia, Renal Disease, Rheumatoid Arthritis (RA), Thyroid Disorder Additional Past Medical History / Comment(s): Pt recently admitted to [facility] with lower extremity edema r/t amlodipine. Other HX: Past low vitamin d levels which caused renal deficiency (CKD stage III), per pt, kidney stones, UTIs, parathyroid overactive related to low vit d levels per pt, pt states her vitamin D supplement has been discontinued-levels are now normal, chronic prednisone secondary to RA followed by Dr. Marlow, chronic CHF, NIDDM type II, chronic peripheral neuropathies hands and feet, chronic low back pain, chronic ANEMIA, hypothyroid, overactive parathyroid, COMPRESSION FX L1, PAST FALLS. Last Myocardial Infarction Date:: 11/2016 History of Any Multi-Drug Resistant Organisms: C-DIFF Year Discovered:: 2014 MDRO Source:: C-DIFF Past Surgical History: Back Surgery, Section, Cholecystectomy, Heart Catheterization, Joint Replacement, Orthopedic Surgery, Tubal Ligation Additional Past Surgical History / Comment(s): Right TKA 2, L carpel tunnel release, CYST REMOVED (NECK) AGE 6, 2 back surgery 2004, EGD/colonoscopy. Past Anesthesia/Blood Transfusion Reactions: No Reported Reaction Additional Past Anesthesia/Blood Transfusion Reaction / Comm: Blood pressure is labile at times with surgery. Smoking Status: Never smoker - Past Family History Sister(s) Family Medical History: Cancer, Diabetes Mellitus Additional Family Medical History / Comment(s): 11 siblings, 6 left. One sister had leukemia and another had ovarian cancer. Mother Family Medical History: Cancer, Diabetes Mellitus Additional Family Medical History / Comment(s): Addisons disease, reproductive cancer. Father Family Medical History: Cancer, Hypertension Additional Family Medical History / Comment(s): Father had throat cancer. He was a smoker. He also had anxiety. Medications and Allergies Home Medications Medication Instructions Recorded Confirmed Type Omeprazole [PriLOSEC] 20 mg PO BID 02/20/14 08/21/17 History Cyanocobalamin [Vitamin B-12] 1,000 mcg PO DAILY 08/19/14 08/21/17 History Ondansetron Odt [Zofran ODT] 4 mg PO Q8HR PRN #15 tab 01/04/15 08/21/17 Rx Liothyronine Sodium [Cytomel] 5 mcg PO DAILY 01/07/15 08/21/17 History Levothyroxine Sodium [Synthroid] 25 mcg PO DAILY@0630 tab 01/12/15 08/21/17 Rx ALPRAZolam [Xanax] 0.25 mg PO BID PRN 09/02/16 08/21/17 History Gabapentin [Neurontin] 100 mg PO TID 09/02/16 08/21/17 History Morphine Sulfate ER [Ms Contin] 15 mg PO BID 09/02/16 08/21/17 History HYDROcodone/APAP 10-325MG [[place] 1 tab PO Q4HR PRN 09/25/16 08/21/17 History 10-325] Nitroglycerin Sl Tabs [Nitrostat] 0.4 mg SUBLINGUAL Q5M PRN #25 tab 12/09/16 Rx Isosorbide Mononitrate ER [Imdur] 30 mg PO QAM 01/17/17 08/21/17 History Sodium Bicarbonate Tab 650 mg PO DAILY 03/28/17 08/21/17 History Carvedilol 25 mg PO BID 05/03/17 08/21/17 History Magnesium Oxide [Mag-Ox] 250 mg PO HS 05/03/17 08/21/17 History Simvastatin 40 mg PO HS 05/03/17 08/21/17 History Ferrous Sulfate [Iron (65 MG 325 mg PO BID #0 06/03/17 08/21/17 Rx Elemental)] predniSONE 10 mg PO DAILY tab 06/03/17 08/21/17 Rx Repaglinide [Prandin] 1 mg PO AC-BRKFST 06/09/17 08/21/17 History Repaglinide [Prandin] 2 mg PO AC-LUNCH 06/09/17 08/21/17 History Metoclopramide [Reglan] 10 mg PO AC-TID #90 tab 06/11/17 08/21/17 Rx Furosemide [Lasix] 40 mg PO DAILY 08/12/17 08/21/17 History Linagliptin [Tradjenta] 5 mg PO DAILY tablet 08/15/17 08/21/17 Rx Nqpffhmu-Rbaugettz-Lgfyoctk 1 drops RIGHT EYE Q4HR bottle 08/15/17 08/21/17 Rx [Maxitrol Ophth Susp] hydrALAZINE HCL [Apresoline] 25 mg PO TID #90 tab 08/15/17 08/21/17 Rx Insulin Glargine,Hum.rec.anlog 8 units SQ DAILY 08/21/17 08/21/17 History [Toujeo Solostar] Allergies Allergy/AdvReac Type Severity Reaction Status Date / Time codeine Allergy Rash/Hives Verified 08/21/17 07:59 Sulfa (Sulfonamide Allergy Rash/Hives Verified 08/21/17 07:59 Antibiotics) gold Allergy Unknown Uncoded 08/21/17 06:29 Physical Exam Vitals: Vital Signs Temp Pulse Pulse Resp BP BP Pulse Ox 08/21/17 10:54 84 18 130/88 100 08/21/17 10:04 98.2 F 84 16 140/63 99 08/21/17 08:00 82 16 106/53 92 L 08/21/17 06:25 96.8 F L 85 20 147/67 94 L Intake and Output 08/20/17 08/21/17 08/21/17 22:59 06:59 14:59 Other: Weight 71.668 kg - Constitutional General appearance: average body habitus, no acute distress - EENT Eyes: anicteric sclerae, EOMI, PERRLA, no ptosis, no scleral icterus, normal appearance ENT: hearing grossly normal, NA/AT, normal oropharynx, no thrush, no tonsillar exudates Ears: bilateral: normal - Neck Neck: no lymphadenopathy, normal ROM, no rigidity, no stridor, no thyromegaly Carotids: bilateral: upstroke normal Thyroid: bilateral: normal size - Respiratory Respiratory: bilateral: diminished, negative: dullness, rales, rhonchi, wheezing , prolonged expiration, prolonged inspiration - Cardiovascular Rhythm: regular Heart sounds: normal: S1, S2 Abnormal Heart Sounds: systolic murmur, no S3 Gallop, no S4 Gallop, no click - Gastrointestinal General gastrointestinal: normal bowel sounds, no scaphoid, soft, no splenomegaly, no tenderness, no umbilical hernia, no ventral hernia - Integumentary Integumentary: normal, normal turgor - Neurologic Neurologic: CNII-XII intact - Musculoskeletal Musculoskeletal: strength equal bilaterally - Psychiatric Psychiatric: A&O x's 3, appropriate affect, intact judgment & insight Results CBC & Chem 7: 08/21/17 11:34 08/21/17 11:34 Assessment and Plan Assessment: Assessment and plan: 1. Right nondisplaced distal femur fracture and proximal tibia and fibula fracture. Continue current pain management with Dilaudid 0.5 mg IV push every 4 hours as well as [place] 10/325 mg 1 tablet 4 hours as needed, patient is already on morphine sulfate twice every day. Continue immobilizer, physical therapy the lesion, continue other management as per orthopedic service. 2. chronic diastolic heart failure. Continue Coreg 25 mg orally twice every day, Lasix 40 mg orally once every day. 2. Diabetic gastroparesis . On Reglan 10 mg 3 times daily. 3. Chronic iron deficiency anemia. Continue iron 325 mg orally twice every day , vitamin B12. Patient is on Procrit type injections through Dr. Guido with improvement of hemoglobin. 4. Stage III chronic kidney disease. Monitor chemistries, avoid nephrotoxic agents. Continue sodium bicarb 650 mg daily 5. Rheumatoid arthritis. Stable at this time. She is on prednisone 10 mg daily 6. Chronic pain syndrome. Patient has been on MS Contin 15 mg twice a day along with [place] 10/325 g every 4 hours as needed. 7. Hypothyroidism. Continue Cytomel 5 mcg orally daily. 8. Diabetes mellitus type 2. Continue Tradjenta 5 mg daily with BGM AC meals and HS . 9. CAD. stable. Continue with Coreg 25 mg orally twice every day, Imdur 30 mg orally once every day, Lipitor 20 mg orally once every day. 10. Hypertension and hypertensive cardiovascular disease. Continue coreg 25 mg orally twice daily, hydralazine 25 mg 3 times daily. Amlodipine discontinued by cardiology. 11. Hyperlipidemia. continue Lipitor 20 mg orally once every day. 12. Chronic neuropathy: Mostly idiopathic peripheral neuropathy and diabetic neuropathy as well to continue Neurontin 100 mg 3 times a day. 13. GI prophylaxis. Continue home Protonix 40 milligrams orally once every day. 14. DVT prophylaxis. Heparin 5000 units SC Q 8 h. 15. CODE STATUS: Full code. 16. Thank you Dr. Capps for allowing me to participate in the care of your patient we will follow the patient with you.
[2017-08-21] MEDS ORDERED: REPAGLINIDE 1 MG TAB PO SCH (13:00)
[2017-08-21] MEDS: INSULIN ASPART 100 UNIT/ML 1 ML 10 ML VIAL SQ SCH ×3 (13:22→21:47)
[2017-08-21] MEDS: NEOMYCIN-POLYMYXIN-DEXAMETH (3.5-10,000-0.1) DROPS 5 ML BTL RIGHT EYE SCH ×4 (14:17→23:18)
[2017-08-21] MEDS: METOCLOPRAMIDE 10 MG TAB PO SCH ×2 (14:17→17:55)
[2017-08-21] MEDS: hydrALAZINE HCL 25 MG TAB PO SCH ×2 (16:00→21:53)
[2017-08-21] MEDS: GABAPENTIN 100 MG CAP PO SCH ×2 (16:01→23:18)
[2017-08-21] MEDS: HEPARIN SODIUM,PORCINE 5,000 UNIT/ML 1 ML VIAL SQ SCH ×2 (16:01→23:18)
[2017-08-21 17:23] LABS: Hemoglobin A1C 6.3 % (4.0-6.0)
[2017-08-21 17:29] LABS: Glucose,Whole Blood 195 mg/dL (75-99)
[2017-08-21] MEDS: CARVEDILOL 12.5 MG TAB PO SCH (17:54)
[2017-08-21] MEDS: PANTOPRAZOLE 40 MG TABLET PO SCH (17:55)
[2017-08-21 20:28] LABS: Glucose,Whole Blood 159 mg/dL (75-99)
[2017-08-21] MEDS: FERROUS SULFATE 325 MG TAB PO SCH (21:54)
[2017-08-21] MEDS: MAGNESIUM OXIDE 400 MG TAB PO SCH (21:54)
[2017-08-21] MEDS: ATORVASTATIN 20 MG TAB PO SCH (21:54)
[2017-08-21] MEDS: MORPHINE SULFATE ER 15 MG TABLET PO SCH (21:54)
[2017-08-22] MEDS: HYDROcodone/APAP 10-325MG 1 EACH TAB PO PRN ×4 (02:41→22:05)
[2017-08-22] MEDS: NEOMYCIN-POLYMYXIN-DEXAMETH (3.5-10,000-0.1) DROPS 5 ML BTL RIGHT EYE SCH ×5 (06:02→19:53)
[2017-08-22] MEDS: ALPRAZolam 0.25 MG TAB PO PRN ×2 (06:20→19:54)
[2017-08-22] MEDS: LEVOTHYROXINE 25 MCG TAB PO SCH (06:20)
[2017-08-22 07:20] LABS: Glucose,Whole Blood 61 mg/dL (75-99)
[2017-08-22] MEDS ORDERED: REPAGLINIDE 1 MG TAB PO SCH (07:30)
[2017-08-22 07:48] LABS: Glucose,Whole Blood 69 mg/dL (75-99)
[2017-08-22 08:02] LABS: Glucose,Whole Blood 73 mg/dL (75-99)
--- NOTE | 2017-08-22 08:20 | P.HPOR ---
History of Present Illness H&P Date: 08/22/17 Chief Complaint: Right knee pain The patient is a 67 y/o female who presented to the Emergency department yesterday after sustaining a fall at home. She fell directly on her right knee and also hit her head. The patient is status post right total knee arthroplasty by Dr. Sanchez in 2005. She has not seen Dr. Sanchez in many years and denies previous issues with this knee prior to the fall. The patient was found to have 3 fractures, non-displaced tibia, fibula, and distal femur fractures around the impants. She was placed in a knee immobilizer and admitted to our service for further evaluation and possible placement to [facility]. Today, the patient states she had a rough night last night due to pain. She is currently on MS Contin and [place] at home. She is receiving Dilaudid during this admission. The patient denies fever, chills, rigors, abdominal pain, chest pain and shortness of breath today. Review of Systems Constitutional: Reports as per HPI, Denies chills, Denies fever Cardiovascular: Denies chest pain, Denies shortness of breath Respiratory: Denies cough Gastrointestinal: Denies diarrhea, Denies nausea, Denies vomiting Musculoskeletal: Reports frequent falls Musculoskeletal: right: knee pain, knee swelling Neurological: Denies head injury, Denies headaches, Denies syncope Past Medical History Past Medical History: Coronary Artery Disease (CAD), Heart Failure, Diabetes Mellitus, GERD/Reflux, Hyperlipidemia, Hypertension, Myocardial Infarction ([place]) , Pneumonia, Renal Disease, Rheumatoid Arthritis (RA), Thyroid Disorder Additional Past Medical History / Comment(s): Pt recently admitted to [facility] with lower extremity edema r/t amlodipine. Other HX: Past low vitamin d levels which caused renal deficiency (CKD stage III), per pt, kidney stones, UTIs, parathyroid overactive related to low vit d levels per pt, pt states her vitamin D supplement has been discontinued-levels are now normal, chronic prednisone secondary to RA followed by Dr. Marlow, chronic CHF, NIDDM type II, chronic peripheral neuropathies hands and feet, chronic low back pain, chronic ANEMIA, hypothyroid, overactive parathyroid, COMPRESSION FX L1, PAST FALLS. Last Myocardial Infarction Date:: 11/2016 History of Any Multi-Drug Resistant Organisms: C-DIFF Date of last positivie culture/infection: 2015 MDRO Source:: C-DIFF Past Surgical History: Back Surgery, Section, Cholecystectomy, Heart Catheterization, Joint Replacement, Orthopedic Surgery, Tubal Ligation Additional Past Surgical History / Comment(s): Right TKA in 2005 by Johnnie Diaz carpel tunnel release, CYST REMOVED (NECK) AGE 6, 2 back surgery 2004, EGD/ colonoscopy. Past Anesthesia/Blood Transfusion Reactions: No Reported Reaction Additional Past Anesthesia/Blood Transfusion Reaction / Comment(s): Blood pressure is labile at times with surgery. Smoking Status: Never smoker - Past Family History Sister(s) Family Medical History: Cancer, Diabetes Mellitus Additional Family Medical History / Comment(s): 11 siblings, 6 left. One sister had leukemia and another had ovarian cancer. Mother Family Medical History: Cancer, Diabetes Mellitus Additional Family Medical History / Comment(s): Addisons disease, reproductive cancer. Father Family Medical History: Cancer, Hypertension Additional Family Medical History / Comment(s): Father had throat cancer. He was a smoker. He also had anxiety. Medications and Allergies Home Medications Medication Instructions Recorded Confirmed Type Omeprazole [PriLOSEC] 20 mg PO BID 02/20/14 08/21/17 History Cyanocobalamin [Vitamin B-12] 1,000 mcg PO DAILY 08/19/14 08/21/17 History Ondansetron Odt [Zofran ODT] 4 mg PO Q8HR PRN #15 tab 01/04/15 08/21/17 Rx Liothyronine Sodium [Cytomel] 5 mcg PO DAILY 01/07/15 08/21/17 History Levothyroxine Sodium [Synthroid] 25 mcg PO DAILY@0630 tab 01/12/15 08/21/17 Rx ALPRAZolam [Xanax] 0.25 mg PO BID PRN 09/02/16 08/21/17 History Gabapentin [Neurontin] 100 mg PO TID 09/02/16 08/21/17 History Morphine Sulfate ER [Ms Contin] 15 mg PO BID 09/02/16 08/21/17 History HYDROcodone/APAP 10-325MG [[place] 1 tab PO Q4HR PRN 09/25/16 08/21/17 History 10-325] Nitroglycerin Sl Tabs [Nitrostat] 0.4 mg SUBLINGUAL Q5M PRN #25 tab 12/09/16 Rx Isosorbide Mononitrate ER [Imdur] 30 mg PO QAM 01/17/17 08/21/17 History Sodium Bicarbonate Tab 650 mg PO DAILY 03/28/17 08/21/17 History Carvedilol 25 mg PO BID 05/03/17 08/21/17 History Magnesium Oxide [Mag-Ox] 250 mg PO HS 05/03/17 08/21/17 History Simvastatin 40 mg PO HS 05/03/17 08/21/17 History Ferrous Sulfate [Iron (65 MG 325 mg PO BID #0 06/03/17 08/21/17 Rx Elemental)] predniSONE 10 mg PO DAILY tab 06/03/17 08/21/17 Rx Repaglinide [Prandin] 1 mg PO AC-BRKFST 06/09/17 08/21/17 History Repaglinide [Prandin] 2 mg PO AC-LUNCH 06/09/17 08/21/17 History Metoclopramide [Reglan] 10 mg PO AC-TID #90 tab 06/11/17 08/21/17 Rx Furosemide [Lasix] 40 mg PO DAILY 08/12/17 08/21/17 History Linagliptin [Tradjenta] 5 mg PO DAILY tablet 08/15/17 08/21/17 Rx Pffihtdk-Vmszotqqk-Ylufioyz 1 drops RIGHT EYE Q4HR bottle 08/15/17 08/21/17 Rx [Maxitrol Ophth Susp] hydrALAZINE HCL [Apresoline] 25 mg PO TID #90 tab 08/15/17 08/21/17 Rx Insulin Glargine,Hum.rec.anlog 8 units SQ DAILY 08/21/17 08/21/17 History [Toudebi Solostar] Allergies Allergy/AdvReac Type Severity Reaction Status Date / Time codeine Allergy Rash/Hives Verified 08/21/17 07:59 Sulfa (Sulfonamide Allergy Rash/Hives Verified 08/21/17 07:59 Antibiotics) gold Allergy Unknown Uncoded 08/21/17 06:29 Physical Examination The patient is a 67 y/o female who is no acute distress. She is alert and oriented x3. The patient's head is normocephalic and atraumatic. No pain to palpation to the cervical spine, no step-offs noted. Exam of the bilateral upper extremities reveal no obvious deformity or pain upon range of motion. Exam of the left lower extremity reveals no obvious deformity or pain upon range of motion. Exam of the right lower extremity reveals pain and swelling to the right knee. There is pain to the proximal fibula and tiba. There is slight pain the distal femur too. There is a small skin tear to the anterior lower leg. Bruising is present. Bilateral calves are soft and non-tender. Weak foot and ankle motion on the right due to pain and guarding. Neurological and circulatory status is intact. Results - Labs Labs: Abnormal Lab Results - Last 24 Hours (Table) 08/21/17 08/21/17 08/21/17 Range/Units 11:20 11:34 11:34 WBC 12.4 H (3.8-10.6) k/uL RBC 2.86 L (3.80-5.40) m/uL Hgb 9.0 L D (11.4-16.0) gm/dL Hct 29.5 L (34.0-46.0) % MCV 103.3 H (80.0-100.0) fL MCHC 30.4 L (31.0-37.0) g/dL Plt Count 116 L (150-450) k/uL Potassium (3.5-5.1) mmol/L Carbon Dioxide (22-30) mmol/L BUN (7-17) mg/dL Creatinine (0.52-1.04) mg/dL Glucose (74-99) mg/dL POC Glucose (mg/dL) 203 H (75-99) mg/dL Hemoglobin A1c 6.3 H (4.0-6.0) % Calcium (8.4-10.2) mg/dL Alkaline Phosphatase (38-126) U/L Total Protein (6.3-8.2) g/dL Albumin (3.5-5.0) g/dL 08/21/17 08/21/17 08/21/17 Range/Units 11:34 17:24 20:24 WBC (3.8-10.6) k/uL RBC (3.80-5.40) m/uL Hgb (11.4-16.0) gm/dL Hct (34.0-46.0) % MCV (80.0-100.0) fL MCHC (31.0-37.0) g/dL Plt Count (150-450) k/uL Potassium 5.5 H (3.5-5.1) mmol/L Carbon Dioxide 33 H (22-30) mmol/L BUN 84 H* (7-17) mg/dL Creatinine 1.66 H (0.52-1.04) mg/dL Glucose 186 H (74-99) mg/dL POC Glucose (mg/dL) 195 H 159 H (75-99) mg/dL Hemoglobin A1c (4.0-6.0) % Calcium 8.1 L (8.4-10.2) mg/dL Alkaline Phosphatase 144 H (38-126) U/L Total Protein 4.7 L (6.3-8.2) g/dL Albumin 2.6 L (3.5-5.0) g/dL 08/22/17 08/22/17 08/22/17 Range/Units 07:08 07:26 07:59 WBC (3.8-10.6) k/uL RBC (3.80-5.40) m/uL Hgb (11.4-16.0) gm/dL Hct (34.0-46.0) % MCV (80.0-100.0) fL MCHC (31.0-37.0) g/dL Plt Count (150-450) k/uL Potassium (3.5-5.1) mmol/L Carbon Dioxide (22-30) mmol/L BUN (7-17) mg/dL Creatinine (0.52-1.04) mg/dL Glucose (74-99) mg/dL POC Glucose (mg/dL) 61 L 69 L 73 L (75-99) mg/dL Hemoglobin A1c (4.0-6.0) % Calcium (8.4-10.2) mg/dL Alkaline Phosphatase (38-126) U/L Total Protein (6.3-8.2) g/dL Albumin (3.5-5.0) g/dL H & H 08/21/17 Range/Units 11:34 Hgb 9.0 L D (11.4-16.0) gm/dL Hct 29.5 L (34.0-46.0) % Result Diagrams: 08/22/17 07:44 08/22/17 07:44 - Diagnostic results Knee x-ray: image reviewed (Non-displaced fractures to the right distal femur, proximal fibula and tibia. Components are intact. There might be loosening of the tibia component. ) Assessment and Plan (1) Fall Current Visit: Yes Status: Acute Code(s): W19.XXXA - UNSPECIFIED FALL, INITIAL ENCOUNTER SNOMED Code(s): 9289777 (2) Fracture of proximal end of right fibula Current Visit: Yes Status: Acute Code(s): S82.831A - OTH FRACTURE OF UPPER AND LOWER END OF RIGHT FIBULA, INIT SNOMED Code(s): 89498615 (3) Fracture of proximal end of right tibia Current Visit: Yes Status: Acute Code(s): S82.101A - UNSP FRACTURE OF UPPER END OF RIGHT TIBIA, INIT FOR CLOS FX SNOMED Code(s): 59278558 (4) Periprosthetic fracture around internal prosthetic right knee joint Current Visit: Yes Status: Acute Code(s): M97.11XA - PERIPROSTH FRACTURE AROUND INTERNAL PROSTH R KNEE JT, INIT SNOMED Code(s): 621615277 Plan: The clinical and x-ray findings were discussed with the patient. The case was also discussed with Dr. Sanchez. We are recommending a CT scan of the right knee to evaluate the fractures and rule out possible tibial component loosening. Continue pain control. Await evaluation by physical and occupational therapy. Non-weightbearing to the right lower extremity with knee immobilizer in place. The patient will need placement in skilled rehab upon discharge. We will continue to follow the patient closely.
[2017-08-22 08:28] LABS: HCT 25.6 % (34.0-46.0); HGB 7.7 gm/dL (11.4-16.0); Hypochromasia Marked; MCH 31.5 pg (25.0-35.0); MCHC 30.3 g/dL (31.0-37.0); MCV 103.9 fL (80.0-100.0); Macrocytosis Slight; Mean Platelet Volume 8.6; RBC 2.46 m/uL (3.80-5.40); RDW 14.7 % (11.5-15.5); WBC 8.2 k/uL (3.8-10.6)
[2017-08-22 08:34] LABS: Albumin 2.2 g/dL (3.5-5.0); Calcium 7.3 mg/dL (8.4-10.2); Potassium 4.6 mmol/L (3.5-5.1); Total Bilirubin 0.6 mg/dL (0.2-1.3); Total Protein 4.2 g/dL (6.3-8.2)
[2017-08-22] MEDS: INSULIN ASPART 100 UNIT/ML 1 ML 10 ML VIAL SQ SCH ×2 (08:39→11:48)
[2017-08-22] MEDS ORDERED: INSULIN DETEMIR 100 UNIT/ML 10 ML VIAL SQ SCH ×2 (09:00→09:35)
[2017-08-22] MEDS ORDERED: FUROSEMIDE 40 MG TAB PO SCH (09:00)
[2017-08-22 09:05] LABS: Platelet Count 84 k/uL (150-450)
[2017-08-22] MEDS: PANTOPRAZOLE 40 MG TABLET PO SCH ×3 (09:27→17:00)
[2017-08-22] MEDS: METOCLOPRAMIDE 10 MG TAB PO SCH ×3 (09:27→16:59)
[2017-08-22] MEDS: LINAGLIPTIN 5 MG TABLET PO SCH (09:27)
[2017-08-22] MEDS: HEPARIN SODIUM,PORCINE 5,000 UNIT/ML 1 ML VIAL SQ SCH (09:27)
[2017-08-22] MEDS: CARVEDILOL 12.5 MG TAB PO SCH ×2 (09:27→16:59)
[2017-08-22] MEDS: CYANOCOBALAMIN 500 MCG TAB PO SCH (09:28)
[2017-08-22] MEDS: predniSONE 10 MG TAB PO SCH (09:29)
[2017-08-22] MEDS: SODIUM BICARBONATE TAB 650 MG TAB PO SCH (09:29)
[2017-08-22] MEDS: FERROUS SULFATE 325 MG TAB PO SCH ×2 (09:29→20:00)
[2017-08-22] MEDS: LIOTHYRONINE SODIUM 5 MCG TAB PO SCH (09:30)
[2017-08-22] MEDS: GABAPENTIN 100 MG CAP PO SCH ×3 (09:30→22:11)
[2017-08-22] MEDS: ISOSORBIDE MONONITRATE ER 30 MG TAB.ER.24H PO SCH (09:30)
[2017-08-22] MEDS: hydrALAZINE HCL 25 MG TAB PO SCH ×3 (09:30→22:11)
[2017-08-22] MEDS: MORPHINE SULFATE ER 15 MG TABLET PO SCH ×2 (09:33→20:00)
[2017-08-22] MEDS ORDERED: INSULIN DETEMIR 100 UNIT/ML 10 ML VIAL SQ ONE (10:15)
--- NOTE | 2017-08-22 11:12 | CT ---
EXAMINATION TYPE: CT knee RT wo con DATE OF EXAM: 08/22/2017 COMPARISON: Radiographs 08/21/2017 HISTORY: 67-year-old female right distal femur and right tibia/fibula fractures. Patient poor histori an. Abnormal knee xray. TECHNIQUE: Contiguous axial scanning of the right knee without IV contrast. Coronal and sagittal soy nstructions performed. CT DLP: 682 mGycm Automated exposure control for dose reduction was used. FINDINGS: Diffuse muscular atrophy. Extensive vascular calcifications suggest diabetes and her chronic kidney d isease. Reticular density throughout the subcutaneous fat suggesting edema. There may be some soft tissue/ski n injury along the anterior upper pretibial region. Marked osteopenia. There is a periprosthetic fracture of the distal femur with vertically oriented fractures at both med ial and lateral metadiaphyses extending to the prosthetic femoral condyles. Minimal distraction and c ortical offset medially, coronal image 25. There is a horizontal obliquely oriented fracture extending through the anterior proximal tibial mikki ex just below the tibial tuberosity with suggestion of a transverse fracture extending to the posteri or cortex, sagittal image 24. Fracture line may extend to the medial anterior tibial change screw, sa gittal image 22 but does not appear to extend to the tibial tray itself. Findings suggest a subtle nondisplaced fracture of the right fibular head/neck with fracture extendin g along the anterior cortex, refer to axial image 103. Small knee joint effusion. IMPRESSION: 1. MARKED OSTEOPENIA LIMITING ASSESSMENT. THERE ARE FRACTURES OF BOTH MEDIAL AND LATERAL DISTAL FEMOR AL METADIAPHYSES WITH PERIPROSTHETIC EXTENSION TO THE FEMORAL CONDYLAR COMPONENTS OF THE PROSTHESIS. MINIMAL CORTICAL OFFSET IS SEEN MEDIALLY. 2. TRANSVERSE TO OBLIQUE FRACTURE OF THE PROXIMAL TIBIAL METADIAPHYSIS. FRACTURE LINE MAY EXTEND TO T HE ANTERIOR MEDIAL TIBIAL TRAY SCREW BUT OTHERWISE SHOWS NO CLEAR PERIPROSTHETIC EXTENSION. 3. SUBTLE, MINIMALLY OFFSET FIBULAR HEAD/NECK FRACTURE. 4. SMALL KNEE JOINT EFFUSION, DIFFUSE MUSCULAR ATROPHY, AND EXTENSIVE VASCULAR CALCIFICATIONS.
[2017-08-22 12:00] LABS: Glucose,Whole Blood 151 mg/dL (75-99)
[2017-08-22] MEDS: SODIUM CHLORIDE 0.9% 1,000 ML IV SCH (13:03)
[2017-08-22] MEDS ORDERED: HYDROmorphone 2 MG TAB PO PRN (13:35)
--- NOTE | 2017-08-22 14:54 | P.PN ---
Subjective Progress Note Date: 08/22/17 This is a 67-year-old female patient of Dr. Lerner with past medical history of rheumatoid arthritis on prednisone and follows with Dr. Marlow, hyperlipidemia, chronic anemia, CKD [address] Cowan, chronic pain syndrome, hypothyroidism, history of coronary artery disease that is post 2 MIs , chronic diastolic heart failure, hypertension, diabetes mellitus type 2, diabetic neuropathy, diabetic gastroparesis, lower back pain with compression fracture L1, chronic anemia and follows with Dr. Guido, patient woke up in the morning and she was trying to walk and she suddenly fell down and landed on the right leg, she stood up and she walked a few steps, her blood glucose level was around 64, patient ended up coming to the ER for evaluation she was found to have a distal femur fracture with nondisplaced proximal fibula and tibia fracture, she was placed in immobilizer she was admitted under orthopedic service and we were asked to see the patient in consultation for medical management. 08/22: Patient states she had awful night due to extreme pain which was not controlled. According to her nurse her pulse ox dropped in the 80s during the night and she was placed on oxygen and patient had some confusion. Oxygen is now bothering her and we will plan to take her off if pulse oxing well. Noted her hemoglobin today is 7.7. BUN 85 and creatinine 1.83. Prandin and Lasix discontinued and patient will be placed on 0.9 normal saline at 50 mL per hour for 1 L. Patient states she is eating but not drinking very much. She has had a bowel movement which was normal. CAT scan of the knee reveals marked osteopenia. Fractures of both medial and lateral distal femoral metadiaphysis with. Prosthetic extension to the for moral condylar components of the prosthesis. Minimal cortical offset is seen medially. Transverse to oblique fracture of the proximal tibial metadiaphysis. Fracture line may extend to the anterior medial tibial tray screw but otherwise shows no clear periprostatic extension. Subtle minimally offset fibular head/neck fracture. Small knee joint effusion, diffuse muscular atrophy and extensive vascular calcifications. Objective - Vital Signs Vital signs: Vital Signs Temp 97.5 F L 08/22/17 07:00 Pulse 80 08/22/17 07:00 Resp 18 08/22/17 07:00 BP 117/58 08/22/17 07:00 Pulse Ox 97 08/22/17 07:00 Intake & Output 08/21/17 08/22/17 08/22/17 18:59 06:59 18:59 Intake Total 300 1050 Balance 300 1050 Weight 76.5 kg Intake: IV 900 Sodium Chloride 0.9% 1, 900 000 ml @ 100 mls/hr IV . Q10H [facility] Rx#:[id number] Oral 300 150 Other: Voiding Method Bedpan # Voids 1 - Exam General appearance: average body habitus, no acute distress - EENT Eyes: anicteric sclerae, EOMI, PERRLA, no ptosis, no scleral icterus, normal appearance ENT: hearing grossly normal, NA/AT, normal oropharynx, no thrush, no tonsillar exudates Ears: bilateral: normal - Neck Neck: no lymphadenopathy, normal ROM, no rigidity, no stridor, no thyromegaly Carotids: bilateral: upstroke normal Thyroid: bilateral: normal size - Respiratory Respiratory: bilateral: diminished, negative: dullness, rales, rhonchi, wheezing , prolonged expiration, prolonged inspiration - Cardiovascular Rhythm: regular Heart sounds: normal: S1, S2 Abnormal Heart Sounds: systolic murmur, no S3 Gallop, no S4 Gallop, no click - Gastrointestinal General gastrointestinal: normal bowel sounds, no scaphoid, soft, no splenomegaly, no tenderness, no umbilical hernia, no ventral hernia - Integumentary Integumentary: normal, normal turgor - Neurologic Neurologic: CNII-XII intact - Musculoskeletal Musculoskeletal: strength equal bilaterally - Psychiatric Psychiatric: A&O x's 3, appropriate affect, intact judgment & insight - Labs CBC & Chem 7: 08/22/17 07:44 08/22/17 07:44 Labs: Abnormal Lab Results - Last 24 Hours (Table) 08/21/17 08/21/17 08/21/17 Range/Units 11:20 11:34 11:34 WBC 12.4 H (3.8-10.6) k/uL RBC 2.86 L (3.80-5.40) m/uL Hgb 9.0 L D (11.4-16.0) gm/dL Hct 29.5 L (34.0-46.0) % MCV 103.3 H (80.0-100.0) fL MCHC 30.4 L (31.0-37.0) g/dL Plt Count 116 L (150-450) k/uL Potassium (3.5-5.1) mmol/L Chloride (98-107) mmol/L Carbon Dioxide (22-30) mmol/L BUN (7-17) mg/dL Creatinine (0.52-1.04) mg/dL Glucose (74-99) mg/dL POC Glucose (mg/dL) 203 H (75-99) mg/dL Hemoglobin A1c 6.3 H (4.0-6.0) % Calcium (8.4-10.2) mg/dL Alkaline Phosphatase (38-126) U/L Total Protein (6.3-8.2) g/dL Albumin (3.5-5.0) g/dL 08/21/17 08/21/17 08/21/17 Range/Units 11:34 17:24 20:24 WBC (3.8-10.6) k/uL RBC (3.80-5.40) m/uL Hgb (11.4-16.0) gm/dL Hct (34.0-46.0) % MCV (80.0-100.0) fL MCHC (31.0-37.0) g/dL Plt Count (150-450) k/uL Potassium 5.5 H (3.5-5.1) mmol/L Chloride (98-107) mmol/L Carbon Dioxide 33 H (22-30) mmol/L BUN 84 H* (7-17) mg/dL Creatinine 1.66 H (0.52-1.04) mg/dL Glucose 186 H (74-99) mg/dL POC Glucose (mg/dL) 195 H 159 H (75-99) mg/dL Hemoglobin A1c (4.0-6.0) % Calcium 8.1 L (8.4-10.2) mg/dL Alkaline Phosphatase 144 H (38-126) U/L Total Protein 4.7 L (6.3-8.2) g/dL Albumin 2.6 L (3.5-5.0) g/dL 08/22/17 08/22/17 08/22/17 Range/Units 07:08 07:26 07:44 WBC (3.8-10.6) k/uL RBC 2.46 L (3.80-5.40) m/uL Hgb 7.7 L (11.4-16.0) gm/dL Hct 25.6 L (34.0-46.0) % MCV 103.9 H (80.0-100.0) fL MCHC 30.3 L (31.0-37.0) g/dL Plt Count 84 L (150-450) k/uL Potassium (3.5-5.1) mmol/L Chloride (98-107) mmol/L Carbon Dioxide (22-30) mmol/L BUN (7-17) mg/dL Creatinine (0.52-1.04) mg/dL Glucose (74-99) mg/dL POC Glucose (mg/dL) 61 L 69 L (75-99) mg/dL Hemoglobin A1c (4.0-6.0) % Calcium (8.4-10.2) mg/dL Alkaline Phosphatase (38-126) U/L Total Protein (6.3-8.2) g/dL Albumin (3.5-5.0) g/dL 08/22/17 08/22/17 Range/Units 07:44 07:59 WBC (3.8-10.6) k/uL RBC (3.80-5.40) m/uL Hgb (11.4-16.0) gm/dL Hct (34.0-46.0) % MCV (80.0-100.0) fL MCHC (31.0-37.0) g/dL Plt Count (150-450) k/uL Potassium (3.5-5.1) mmol/L Chloride 108 H (98-107) mmol/L Carbon Dioxide (22-30) mmol/L BUN 85 H* (7-17) mg/dL Creatinine 1.83 H (0.52-1.04) mg/dL Glucose 67 L (74-99) mg/dL POC Glucose (mg/dL) 73 L (75-99) mg/dL Hemoglobin A1c (4.0-6.0) % Calcium 7.3 L (8.4-10.2) mg/dL Alkaline Phosphatase (38-126) U/L Total Protein 4.2 L (6.3-8.2) g/dL Albumin 2.2 L (3.5-5.0) g/dL Assessment and Plan Plan: 1. Right nondisplaced distal femur fracture and proximal tibia and fibula fracture. Continue current pain management with Dilaudid 0.5 mg IV push every 4 hours as well as [place] 10/325 mg 1 tablet 4 hours as needed, patient is already on morphine sulfate twice every day. Continue immobilizer, physical therapy the lesion, continue other management as per orthopedic service. 2. chronic diastolic heart failure. Continue Coreg 25 mg orally twice every day, Lasix 40 mg orally once every day. 2. Diabetic gastroparesis . On Reglan 10 mg 3 times daily. 3. Chronic iron deficiency anemia with drop in hemoglobin. Monitor for blood loss anemia.. Continue iron 325 mg orally twice every day, vitamin B12. Patient is on Procrit type injections through Dr. Guido with improvement of hemoglobin. 4. Acute kidney injury (present on admission) with stage III chronic kidney disease. Monitor chemistries, avoid nephrotoxic agents. Continue sodium bicarb 650 mg daily. Prandin and Lasix will be discontinued. IV fluids at 50 mL per hour for 1 L. Recheck labs in the morning. 5. Rheumatoid arthritis. Stable at this time. She is on prednisone 10 mg daily 6. Chronic pain syndrome. Patient has been on MS Contin 15 mg twice a day along with [place] 10/325 g every 4 hours as needed. 7. Hypothyroidism. Continue Cytomel 5 mcg orally daily. 8. Diabetes mellitus type 2. Continue Tradjenta 5 mg daily with BGM AC meals and HS . 9. CAD. stable. Continue with Coreg 25 mg orally twice every day, Imdur 30 mg orally once every day, Lipitor 20 mg orally once every day. 10. Hypertension and hypertensive cardiovascular disease. Continue coreg 25 mg orally twice daily, hydralazine 25 mg 3 times daily. Amlodipine discontinued by cardiology. 11. Hyperlipidemia. continue Lipitor 20 mg orally once every day. 12. Chronic neuropathy: Mostly idiopathic peripheral neuropathy and diabetic neuropathy as well to continue Neurontin 100 mg 3 times a day. 13. GI prophylaxis. Continue home Protonix 40 milligrams orally once every day. 14. DVT prophylaxis. Heparin 5000 units SC Q 8 h. 15. CODE STATUS: Full code. Discharge plan: Probable need for subacute rehab Impression and plan of care have been directed as dictated by the signing physician. Nadja Kaur nurse practitioner acting as scribe for signing physician.
[2017-08-22 16:42] LABS: Glucose,Whole Blood 143 mg/dL (75-99)
[2017-08-22] MEDS: MAGNESIUM OXIDE 400 MG TAB PO SCH (20:00)
[2017-08-22] MEDS: ATORVASTATIN 20 MG TAB PO SCH (20:00)
[2017-08-22 20:16] LABS: Glucose,Whole Blood 115 mg/dL (75-99)
[2017-08-23] MEDS: NEOMYCIN-POLYMYXIN-DEXAMETH (3.5-10,000-0.1) DROPS 5 ML BTL RIGHT EYE SCH ×6 (02:48→22:01)
[2017-08-23] MEDS: HYDROcodone/APAP 10-325MG 1 EACH TAB PO PRN ×3 (04:22→15:54)
[2017-08-23] MEDS: LEVOTHYROXINE 25 MCG TAB PO SCH (06:13)
[2017-08-23] MEDS: LINAGLIPTIN 5 MG TABLET PO SCH (07:42)
[2017-08-23] MEDS: PANTOPRAZOLE 40 MG TABLET PO SCH ×2 (07:44→07:59)
[2017-08-23 07:55] LABS: Glucose,Whole Blood 55 mg/dL (75-99)
[2017-08-23 07:56] LABS: Glucose,Whole Blood 59 mg/dL (75-99)
[2017-08-23] MEDS: hydrALAZINE HCL 25 MG TAB PO SCH ×3 (07:58→22:01)
[2017-08-23] MEDS: ISOSORBIDE MONONITRATE ER 30 MG TAB.ER.24H PO SCH (07:58)
[2017-08-23] MEDS: SODIUM BICARBONATE TAB 650 MG TAB PO SCH (07:58)
[2017-08-23] MEDS: CARVEDILOL 12.5 MG TAB PO SCH ×2 (07:59→16:56)
[2017-08-23] MEDS: GABAPENTIN 100 MG CAP PO SCH ×3 (07:59→22:01)
[2017-08-23] MEDS: LIOTHYRONINE SODIUM 5 MCG TAB PO SCH (07:59)
[2017-08-23] MEDS: MORPHINE SULFATE ER 15 MG TABLET PO SCH ×2 (07:59→21:59)
[2017-08-23] MEDS: METOCLOPRAMIDE 10 MG TAB PO SCH ×3 (07:59→16:56)
[2017-08-23] MEDS: FERROUS SULFATE 325 MG TAB PO SCH ×2 (07:59→22:00)
[2017-08-23] MEDS: CYANOCOBALAMIN 500 MCG TAB PO SCH (07:59)
[2017-08-23] MEDS: predniSONE 10 MG TAB PO SCH (08:00)
[2017-08-23 08:07] LABS: HCT 24.1 % (34.0-46.0); HGB 7.1 gm/dL (11.4-16.0); Hypochromasia Marked; MCHC 29.5 g/dL (31.0-37.0); MCV 104.9 fL (80.0-100.0); Macrocytosis Moderate; Mean Platelet Volume 8.4; RDW 14.6 % (11.5-15.5); WBC 5.3 k/uL (3.8-10.6)
[2017-08-23 08:14] LABS: Platelet Count 79 k/uL (150-450)
[2017-08-23 08:18] LABS: Glucose,Whole Blood 77 mg/dL (75-99)
[2017-08-23 08:19] LABS: Albumin 2.1 g/dL (3.5-5.0); Calcium 7.4 mg/dL (8.4-10.2); Potassium 4.9 mmol/L (3.5-5.1); Total Bilirubin 0.5 mg/dL (0.2-1.3); Total Protein 4.1 g/dL (6.3-8.2)
[2017-08-23] MEDS: ALPRAZolam 0.25 MG TAB PO PRN (08:38)
[2017-08-23] MEDS: SODIUM CHLORIDE 0.9% 1,000 ML IV SCH (09:45)
--- NOTE | 2017-08-23 10:20 | P.PN ---
Subjective Progress Note Date: 08/23/17 Principal diagnosis: Distal femur, proximal tib/fib fracture The patient is a 67-year-old female who was admitted 2 days ago after sustaining a fall at home. She was found to have fractures to her distal femur which is periprosthetic. And fractures to the proximal fibula and tibia. The patient was placed in a knee immobilizer. She is unable to work with physical therapy due to the pain. She is currently on MS Contin, [place], and Dilaudid. No new complaints today. CT of the right knee revealed fractures to the medial and lateral distal femur with periprosthetic extension and transverse to oblique fracture of the proximal tibia that may extend into the anterior medial tibial tray screw. And minimally displaced fibular neck fracture is present. There is a small joint effusion. Extensive vascular calcifications are present. Objective - Vital Signs Vital signs: Vital Signs Temp 91.7 F L 08/23/17 07:00 Pulse 93 08/23/17 07:00 Resp 14 08/23/17 07:00 BP 114/56 08/23/17 07:00 Pulse Ox 88 L 08/23/17 07:00 Intake & Output 08/22/17 08/23/17 08/23/17 18:59 06:59 18:59 Intake Total 160 Balance 160 Weight 74.5 kg Intake: Intake, IV Titration 160 Amount Sodium Chloride 0.9% 1, 160 000 ml @ 50 mls/hr IV . Q20H [facility] Rx#:[id number] Other: Voiding Method Bedpan Bedpan # Voids 2 1 1 # Bowel Movements 1 1 - Exam The patient is a 67-year-old female who is in no acute distress. She is alert and oriented 3. Exam of the right lower extremity reveals swelling and ecchymosis to the right knee. There is a knee immobilizer in place. There is pain to the proximal tibia and fibula. Also pain to the distal femur. Calf is soft and nontender. She has good foot and ankle motion. No neurological deficits. Circulatory status status is intact. - Labs CBC & Chem 7: 08/23/17 07:20 08/23/17 07:20 Labs: Abnormal Lab Results - Last 24 Hours (Table) 08/22/17 08/22/17 08/22/17 Range/Units 11:47 16:37 20:14 RBC (3.80-5.40) m/uL Hgb (11.4-16.0) gm/dL Hct (34.0-46.0) % MCV (80.0-100.0) fL MCHC (31.0-37.0) g/dL Plt Count (150-450) k/uL Chloride (98-107) mmol/L BUN (7-17) mg/dL Creatinine (0.52-1.04) mg/dL Glucose (74-99) mg/dL POC Glucose (mg/dL) 151 H 143 H 115 H (75-99) mg/dL Calcium (8.4-10.2) mg/dL Total Protein (6.3-8.2) g/dL Albumin (3.5-5.0) g/dL 08/23/17 08/23/17 08/23/17 Range/Units 07:20 07:20 07:27 RBC 2.30 L (3.80-5.40) m/uL Hgb 7.1 L (11.4-16.0) gm/dL Hct 24.1 L (34.0-46.0) % MCV 104.9 H (80.0-100.0) fL MCHC 29.5 L (31.0-37.0) g/dL Plt Count 79 L (150-450) k/uL Chloride 108 H (98-107) mmol/L BUN 85 H* (7-17) mg/dL Creatinine 1.89 H (0.52-1.04) mg/dL Glucose 46 L* (74-99) mg/dL POC Glucose (mg/dL) 55 L (75-99) mg/dL Calcium 7.4 L (8.4-10.2) mg/dL Total Protein 4.1 L (6.3-8.2) g/dL Albumin 2.1 L (3.5-5.0) g/dL 08/23/17 Range/Units 07:45 RBC (3.80-5.40) m/uL Hgb (11.4-16.0) gm/dL Hct (34.0-46.0) % MCV (80.0-100.0) fL MCHC (31.0-37.0) g/dL Plt Count (150-450) k/uL Chloride (98-107) mmol/L BUN (7-17) mg/dL Creatinine (0.52-1.04) mg/dL Glucose (74-99) mg/dL POC Glucose (mg/dL) 59 L (75-99) mg/dL Calcium (8.4-10.2) mg/dL Total Protein (6.3-8.2) g/dL Albumin (3.5-5.0) g/dL Assessment and Plan (1) Fall Current Visit: Yes Status: Acute Code(s): W19.XXXA - UNSPECIFIED FALL, INITIAL ENCOUNTER SNOMED Code(s): 2494162 (2) Fracture of proximal end of right fibula Current Visit: Yes Status: Acute Code(s): S82.831A - OTH FRACTURE OF UPPER AND LOWER END OF RIGHT FIBULA, INIT SNOMED Code(s): 68421546 (3) Fracture of proximal end of right tibia Current Visit: Yes Status: Acute Code(s): S82.101A - UNSP FRACTURE OF UPPER END OF RIGHT TIBIA, INIT FOR CLOS FX SNOMED Code(s): 57068572 (4) Periprosthetic fracture around internal prosthetic right knee joint Current Visit: Yes Status: Acute Code(s): M97.11XA - PERIPROSTH FRACTURE AROUND INTERNAL PROSTH R KNEE JT, INIT SNOMED Code(s): 809080035 Plan: The clinical and x-ray findings were discussed with the patient. The case was also discussed with Dr. Sanchez. Continue pain control. Await evaluation by physical and occupational therapy. Strict non-weightbearing to the right lower extremity with knee immobilizer in place. The patient will need placement in skilled rehab upon discharge. We will continue to follow the patient closely.
[2017-08-23 11:24] LABS: Glucose,Whole Blood 97 mg/dL (75-99)
--- NOTE | 2017-08-23 15:07 | P.PN ---
Subjective Progress Note Date: 08/23/17 This is a 67-year-old female patient of Dr. Lerner with past medical history of rheumatoid arthritis on prednisone and follows with Dr. Marlow, hyperlipidemia, chronic anemia, CKD [address] Cowan, chronic pain syndrome, hypothyroidism, history of coronary artery disease that is post 2 MIs , chronic diastolic heart failure, hypertension, diabetes mellitus type 2, diabetic neuropathy, diabetic gastroparesis, lower back pain with compression fracture L1, chronic anemia and follows with Dr. Guido, patient woke up in the morning and she was trying to walk and she suddenly fell down and landed on the right leg, she stood up and she walked a few steps, her blood glucose level was around 64, patient ended up coming to the ER for evaluation she was found to have a distal femur fracture with nondisplaced proximal fibula and tibia fracture, she was placed in immobilizer she was admitted under orthopedic service and we were asked to see the patient in consultation for medical management. 08/22: Patient states she had awful night due to extreme pain which was not controlled. According to her nurse her pulse ox dropped in the 80s during the night and she was placed on oxygen and patient had some confusion. Oxygen is now bothering her and we will plan to take her off if pulse oxing well. Noted her hemoglobin today is 7.7. BUN 85 and creatinine 1.83. Prandin and Lasix discontinued and patient will be placed on 0.9 normal saline at 50 mL per hour for 1 L. Patient states she is eating but not drinking very much. She has had a bowel movement which was normal. CAT scan of the knee reveals marked osteopenia. Fractures of both medial and lateral distal femoral metadiaphysis with. Prosthetic extension to the for moral condylar components of the prosthesis. Minimal cortical offset is seen medially. Transverse to oblique fracture of the proximal tibial metadiaphysis. Fracture line may extend to the anterior medial tibial tray screw but otherwise shows no clear periprostatic extension. Subtle minimally offset fibular head/neck fracture. Small knee joint effusion, diffuse muscular atrophy and extensive vascular calcifications. 08/23: Patient has knee immobilizer ordered with strict nonweightbearing to the right side. Social work is developing plan for subacute rehab. Patient is requesting [place] most likely she will be ready by tomorrow. Her pain is much better today. She denies any shortness of breath. Blood sugar is noted to be low and conjunctiva discontinued. Objective - Vital Signs Vital signs: Vital Signs Temp 91.7 F L 08/23/17 07:00 Pulse 93 08/23/17 07:00 Resp 14 08/23/17 07:00 BP 114/56 08/23/17 07:00 Pulse Ox 88 L 08/23/17 07:00 Intake & Output 08/22/17 08/23/17 08/23/17 18:59 06:59 18:59 Intake Total 160 Balance 160 Weight 74.5 kg Intake: Intake, IV Titration 160 Amount Sodium Chloride 0.9% 1, 160 000 ml @ 50 mls/hr IV . Q20H [facility] Rx#:[id number] Other: Voiding Method Bedpan Bedpan # Voids 2 1 1 # Bowel Movements 1 1 - Exam General appearance: average body habitus, no acute distress - EENT Eyes: anicteric sclerae, EOMI, PERRLA, no ptosis, no scleral icterus, normal appearance ENT: hearing grossly normal, NA/AT, normal oropharynx, no thrush, no tonsillar exudates Ears: bilateral: normal - Neck Neck: no lymphadenopathy, normal ROM, no rigidity, no stridor, no thyromegaly Carotids: bilateral: upstroke normal Thyroid: bilateral: normal size - Respiratory Respiratory: bilateral: diminished, negative: dullness, rales, rhonchi, wheezing , prolonged expiration, prolonged inspiration - Cardiovascular Rhythm: regular Heart sounds: normal: S1, S2 Abnormal Heart Sounds: systolic murmur, no S3 Gallop, no S4 Gallop, no click - Gastrointestinal General gastrointestinal: normal bowel sounds, no scaphoid, soft, no splenomegaly, no tenderness, no umbilical hernia, no ventral hernia - Integumentary Integumentary: normal, normal turgor - Neurologic Neurologic: CNII-XII intact - Musculoskeletal Musculoskeletal: strength equal bilaterally - Psychiatric Psychiatric: A&O x's 3, appropriate affect, intact judgment & insight - Labs CBC & Chem 7: 08/23/17 07:20 08/23/17 07:20 Labs: Abnormal Lab Results - Last 24 Hours (Table) 08/22/17 08/22/17 08/22/17 Range/Units 11:47 16:37 20:14 RBC (3.80-5.40) m/uL Hgb (11.4-16.0) gm/dL Hct (34.0-46.0) % MCV (80.0-100.0) fL MCHC (31.0-37.0) g/dL Plt Count (150-450) k/uL Chloride (98-107) mmol/L BUN (7-17) mg/dL Creatinine (0.52-1.04) mg/dL Glucose (74-99) mg/dL POC Glucose (mg/dL) 151 H 143 H 115 H (75-99) mg/dL Calcium (8.4-10.2) mg/dL Total Protein (6.3-8.2) g/dL Albumin (3.5-5.0) g/dL 08/23/17 08/23/17 08/23/17 Range/Units 07:20 07:20 07:27 RBC 2.30 L (3.80-5.40) m/uL Hgb 7.1 L (11.4-16.0) gm/dL Hct 24.1 L (34.0-46.0) % MCV 104.9 H (80.0-100.0) fL MCHC 29.5 L (31.0-37.0) g/dL Plt Count 79 L (150-450) k/uL Chloride 108 H (98-107) mmol/L BUN 85 H* (7-17) mg/dL Creatinine 1.89 H (0.52-1.04) mg/dL Glucose 46 L* (74-99) mg/dL POC Glucose (mg/dL) 55 L (75-99) mg/dL Calcium 7.4 L (8.4-10.2) mg/dL Total Protein 4.1 L (6.3-8.2) g/dL Albumin 2.1 L (3.5-5.0) g/dL 08/23/17 Range/Units 07:45 RBC (3.80-5.40) m/uL Hgb (11.4-16.0) gm/dL Hct (34.0-46.0) % MCV (80.0-100.0) fL MCHC (31.0-37.0) g/dL Plt Count (150-450) k/uL Chloride (98-107) mmol/L BUN (7-17) mg/dL Creatinine (0.52-1.04) mg/dL Glucose (74-99) mg/dL POC Glucose (mg/dL) 59 L (75-99) mg/dL Calcium (8.4-10.2) mg/dL Total Protein (6.3-8.2) g/dL Albumin (3.5-5.0) g/dL Assessment and Plan Plan: 1. Right nondisplaced distal femur fracture and proximal tibia and fibula fracture. Continue current pain management with Dilaudid 0.5 mg IV push every 4 hours as well as [place] 10/325 mg 1 tablet 4 hours as needed, patient is already on morphine sulfate twice every day. Continue immobilizer, physical therapy the lesion, continue other management as per orthopedic service. 2. Chronic diastolic heart failure. Continue Coreg 25 mg orally twice every day, Lasix 40 mg orally once every day. 2. Diabetic gastroparesis . On Reglan 10 mg 3 times daily. 3. Chronic iron deficiency anemia with drop in hemoglobin. Monitor for blood loss anemia.. Continue iron 325 mg orally twice every day, vitamin B12. Patient is on Procrit type injections through Dr. Guido with improvement of hemoglobin. 4. Acute kidney injury (present on admission) with stage III chronic kidney disease. Monitor chemistries, avoid nephrotoxic agents. Continue sodium bicarb 650 mg daily. Prandin and Lasix will be discontinued. IV fluids at 50 mL per hour for 1 L. Recheck labs in the morning. 5. Rheumatoid arthritis. Stable at this time. She is on prednisone 10 mg daily 6. Chronic pain syndrome. Patient has been on MS Contin 15 mg twice a day along with [place] 10/325 g every 4 hours as needed. 7. Hypothyroidism. Continue Cytomel 5 mcg orally daily. 8. Diabetes mellitus type 2. Continue Levemir only. 9. CAD. stable. Continue with Coreg 25 mg orally twice every day, Imdur 30 mg orally once every day, Lipitor 20 mg orally once every day. 10. Hypertension and hypertensive cardiovascular disease. Continue coreg 25 mg orally twice daily, hydralazine 25 mg 3 times daily. Amlodipine discontinued by cardiology. 11. Hyperlipidemia. continue Lipitor 20 mg orally once every day. 12. Chronic neuropathy: Mostly idiopathic peripheral neuropathy and diabetic neuropathy as well to continue Neurontin 100 mg 3 times a day. 13. GI prophylaxis. Continue home Protonix 40 milligrams orally once every day. 14. DVT prophylaxis. Heparin 5000 units SC Q 8 h. 15. CODE STATUS: Full code. Discharge plan: [place] [facility] Impression and plan of care have been directed as dictated by the signing physician. Nadja Kaur nurse practitioner acting as scribe for signing physician.
[2017-08-23 17:25] LABS: Glucose,Whole Blood 129 mg/dL (75-99)
[2017-08-23 20:43] LABS: Glucose,Whole Blood 128 mg/dL (75-99)
[2017-08-23] MEDS: ATORVASTATIN 20 MG TAB PO SCH (21:04)
[2017-08-23] MEDS: MAGNESIUM OXIDE 400 MG TAB PO SCH (22:00)
[2017-08-24] MEDS: NEOMYCIN-POLYMYXIN-DEXAMETH (3.5-10,000-0.1) DROPS 5 ML BTL RIGHT EYE SCH ×6 (00:18→20:47)
[2017-08-24] MEDS: LEVOTHYROXINE 25 MCG TAB PO SCH (06:12)
[2017-08-24] MEDS: INSULIN DETEMIR 100 UNIT/ML 10 ML VIAL SQ SCH (07:31)
[2017-08-24 07:42] LABS: Glucose,Whole Blood 108 mg/dL (75-99)
[2017-08-24] MEDS: predniSONE 10 MG TAB PO SCH (07:54)
[2017-08-24] MEDS: SODIUM BICARBONATE TAB 650 MG TAB PO SCH (07:54)
[2017-08-24] MEDS: PANTOPRAZOLE 40 MG TABLET PO SCH (07:54)
[2017-08-24] MEDS: hydrALAZINE HCL 25 MG TAB PO SCH ×3 (07:54→21:06)
[2017-08-24] MEDS: CARVEDILOL 12.5 MG TAB PO SCH ×2 (07:54→17:34)
[2017-08-24] MEDS: CYANOCOBALAMIN 500 MCG TAB PO SCH (07:54)
[2017-08-24] MEDS: METOCLOPRAMIDE 10 MG TAB PO SCH ×3 (07:54→17:34)
[2017-08-24] MEDS: ISOSORBIDE MONONITRATE ER 30 MG TAB.ER.24H PO SCH (07:54)
[2017-08-24] MEDS: GABAPENTIN 100 MG CAP PO SCH ×3 (07:55→21:06)
[2017-08-24] MEDS: FERROUS SULFATE 325 MG TAB PO SCH ×2 (07:55→20:47)
[2017-08-24] MEDS: MORPHINE SULFATE ER 15 MG TABLET PO SCH ×2 (07:55→20:47)
[2017-08-24 08:48] LABS: HCT 25.1 % (34.0-46.0); HGB 7.6 gm/dL (11.4-16.0); Hypochromasia Moderate; MCH 31.2 pg (25.0-35.0); MCHC 30.4 g/dL (31.0-37.0); MCV 102.8 fL (80.0-100.0); Macrocytosis Slight; Mean Platelet Volume 8.2; RBC 2.44 m/uL (3.80-5.40); RDW 14.8 % (11.5-15.5)
[2017-08-24 08:52] LABS: Platelet Count 99 k/uL (150-450)
[2017-08-24] MEDS: LIOTHYRONINE SODIUM 5 MCG TAB PO SCH (09:03)
[2017-08-24 09:05] LABS: Albumin 2.3 g/dL (3.5-5.0); Calcium 8.1 mg/dL (8.4-10.2); Potassium 5.2 mmol/L (3.5-5.1); Total Bilirubin 0.5 mg/dL (0.2-1.3); Total Protein 4.5 g/dL (6.3-8.2)
[2017-08-24] MEDS: HYDROcodone/APAP 10-325MG 1 EACH TAB PO PRN (09:12)
--- NOTE | 2017-08-24 09:24 | P.DS ---
Providers Date of admission: 08/21/17 09:41 Expected date of discharge: 08/24/17 Attending physician: Kj Sanchez Consults: 08/21/17 09:40 Consult Physician Routine Consulting Provider: Fay Lerner Consult Reason/Comments: known Do you want consulting provider notified?: Yes Primary care physician: Fay Lerner - Discharge Diagnosis(es) (1) Fall Current Visit: Yes Status: Acute (2) Fracture of proximal end of right fibula Current Visit: Yes Status: Acute (3) Fracture of proximal end of right tibia Current Visit: Yes Status: Acute (4) Periprosthetic fracture around internal prosthetic right knee joint Current Visit: Yes Status: Acute Hospital Course: The patient is a 67-year-old female who presented to the hospital after sustaining a fall at home. She was found to have periprosthetic fractures of her distal femur and proximal tibia with a proximal fibula fracture as well. The patient was placed in a knee immobilizer and admitted for pain management and rehab placement. She has been strict nonweightbearing to the right leg. Today, the patient appears to be more comfortable. Vital signs are stable. She is alert and oriented 3. Exam of the right lower extremity reveals swelling and ecchymosis to the right knee. There is a small skin abrasion to the anterior aspect of the right lower leg. Range of motion of the right knee was not tested at this time. There is pain to help patient to the entire knee and lower leg. There is 2+ edema. She is good foot and ankle motion. Calf is soft and nontender. Neurological and circulatory status is intact. The patient is orthopedically stable for discharge to skilled rehab today. Pertinent Studies: Laboratory Tests 08/24/17 08:06 WBC 5.0 RBC 2.44 L Hgb 7.6 L Hct 25.1 L Patient Condition at Discharge: Fair Plan - Discharge Summary Discharge Rx Participant: No New Discharge Prescriptions: No Action Omeprazole [PriLOSEC] 20 mg PO BID Cyanocobalamin [Vitamin B-12] 1,000 mcg PO DAILY Ondansetron Odt [Zofran ODT] 4 mg PO Q8HR PRN #15 tab PRN Reason: Nausea Liothyronine Sodium [Cytomel] 5 mcg PO DAILY Levothyroxine Sodium [Synthroid] 25 mcg PO DAILY@0630 tab Morphine Sulfate ER [Ms Contin] 15 mg PO BID Gabapentin [Neurontin] 100 mg PO TID ALPRAZolam [Xanax] 0.25 mg PO BID PRN PRN Reason: Anxiety HYDROcodone/APAP 10-325MG [[place] 10-325] 1 tab PO Q4HR PRN PRN Reason: Moderate Pain Nitroglycerin Sl Tabs [Nitrostat] 0.4 mg SUBLINGUAL Q5M PRN #25 tab PRN Reason: Chest Pain Isosorbide Mononitrate ER [Imdur] 30 mg PO QAM Sodium Bicarbonate Tab 650 mg PO DAILY Simvastatin 40 mg PO HS Magnesium Oxide [Mag-Ox] 250 mg PO HS Carvedilol 25 mg PO BID predniSONE 10 mg PO DAILY tab Ferrous Sulfate [Iron (65 MG Elemental)] 325 mg PO BID #0 Repaglinide [Prandin] 2 mg PO AC-LUNCH Repaglinide [Prandin] 1 mg PO AC-BRKFST Metoclopramide [Reglan] 10 mg PO AC-TID #90 tab Furosemide [Lasix] 40 mg PO DAILY hydrALAZINE HCL [Apresoline] 25 mg PO TID #90 tab Linagliptin [Tradjenta] 5 mg PO DAILY tablet Wkgtexeo-Hkrjkirrp-Pjupceom [Maxitrol Ophth Susp] 1 drops RIGHT EYE Q4HR bottle Insulin Glargine,Hum.rec.anlog [Toudebi Solostar] 8 units SQ DAILY Discharge Medication List Omeprazole [PriLOSEC] 20 mg PO BID 02/20/14 [History] Cyanocobalamin [Vitamin B-12] 1,000 mcg PO DAILY 08/19/14 [History] Ondansetron Odt [Zofran ODT] 4 mg PO Q8HR PRN #15 tab 01/04/15 [Rx] Liothyronine Sodium [Cytomel] 5 mcg PO DAILY 01/07/15 [History] Levothyroxine Sodium [Synthroid] 25 mcg PO DAILY@0630 tab 01/12/15 [Rx] ALPRAZolam [Xanax] 0.25 mg PO BID PRN 09/02/16 [History] Gabapentin [Neurontin] 100 mg PO TID 09/02/16 [History] Morphine Sulfate ER [Ms Contin] 15 mg PO BID 09/02/16 [History] HYDROcodone/APAP 10-325MG [[place] 10-325] 1 tab PO Q4HR PRN 09/25/16 [History] Nitroglycerin Sl Tabs [Nitrostat] 0.4 mg SUBLINGUAL Q5M PRN #25 tab 12/09/16 [Rx ] Isosorbide Mononitrate ER [Imdur] 30 mg PO QAM 01/17/17 [History] Sodium Bicarbonate Tab 650 mg PO DAILY 03/28/17 [History] Carvedilol 25 mg PO BID 05/03/17 [History] Magnesium Oxide [Mag-Ox] 250 mg PO HS 05/03/17 [History] Simvastatin 40 mg PO HS 05/03/17 [History] Ferrous Sulfate [Iron (65 MG Elemental)] 325 mg PO BID #0 06/03/17 [Rx] predniSONE 10 mg PO DAILY tab 06/03/17 [Rx] Repaglinide [Prandin] 1 mg PO AC-BRKFST 06/09/17 [History] Repaglinide [Prandin] 2 mg PO AC-LUNCH 06/09/17 [History] Metoclopramide [Reglan] 10 mg PO AC-TID #90 tab 06/11/17 [Rx] Furosemide [Lasix] 40 mg PO DAILY 08/12/17 [History] Linagliptin [Tradjenta] 5 mg PO DAILY tablet 08/15/17 [Rx] Flbccrsd-Dywjnzwyr-Ldbwhldl [Maxitrol Ophth Susp] 1 drops RIGHT EYE Q4HR bottle 08/15/17 [Rx] hydrALAZINE HCL [Apresoline] 25 mg PO TID #90 tab 08/15/17 [Rx] Insulin Glargine,Hum.rec.anlog [Toujeo Solostar] 8 units SQ DAILY 08/21/17 [ History] Follow up Appointment(s)/Referral(s): Fay Lerner MD [Primary Care Provider] - 1-2 days Kj Sanchez DO [Doctor of Osteopathic Medicine] - 4 Weeks Activity/Diet/Wound Care/Special Instructions: Strict non-weightbearing to the right lower extremity Knee immobilizer at all times Follow up with Dr. Sanchez in 4 weeks. Call [facility] with any questions or concerns, . Discharge Disposition: TRANSFER TO SNF/ECF
[2017-08-24] MEDS: ALPRAZolam 0.25 MG TAB PO PRN (10:14)
[2017-08-24 12:01] LABS: Glucose,Whole Blood 207 mg/dL (75-99)
--- NOTE | 2017-08-24 13:12 | P.PN ---
Subjective Progress Note Date: 08/24/17 This is a 67-year-old female patient of Dr. Lerner with past medical history of rheumatoid arthritis on prednisone and follows with Dr. Marlow, hyperlipidemia, chronic anemia, CKD [address] Cowan, chronic pain syndrome, hypothyroidism, history of coronary artery disease that is post 2 MIs , chronic diastolic heart failure, hypertension, diabetes mellitus type 2, diabetic neuropathy, diabetic gastroparesis, lower back pain with compression fracture L1, chronic anemia and follows with Dr. Guido, patient woke up in the morning and she was trying to walk and she suddenly fell down and landed on the right leg, she stood up and she walked a few steps, her blood glucose level was around 64, patient ended up coming to the ER for evaluation she was found to have a distal femur fracture with nondisplaced proximal fibula and tibia fracture, she was placed in immobilizer she was admitted under orthopedic service and we were asked to see the patient in consultation for medical management. 08/22: Patient states she had awful night due to extreme pain which was not controlled. According to her nurse her pulse ox dropped in the 80s during the night and she was placed on oxygen and patient had some confusion. Oxygen is now bothering her and we will plan to take her off if pulse oxing well. Noted her hemoglobin today is 7.7. BUN 85 and creatinine 1.83. Prandin and Lasix discontinued and patient will be placed on 0.9 normal saline at 50 mL per hour for 1 L. Patient states she is eating but not drinking very much. She has had a bowel movement which was normal. CAT scan of the knee reveals marked osteopenia. Fractures of both medial and lateral distal femoral metadiaphysis with. Prosthetic extension to the for moral condylar components of the prosthesis. Minimal cortical offset is seen medially. Transverse to oblique fracture of the proximal tibial metadiaphysis. Fracture line may extend to the anterior medial tibial tray screw but otherwise shows no clear periprostatic extension. Subtle minimally offset fibular head/neck fracture. Small knee joint effusion, diffuse muscular atrophy and extensive vascular calcifications. 08/23: Patient has knee immobilizer ordered with strict nonweightbearing to the right side. Social work is developing plan for subacute rehab. Patient is requesting [facility] most likely she will be ready by tomorrow. Her pain is much better today. She denies any shortness of breath. Blood sugar is noted to be low and conjunctiva discontinued. 08/24: Patient is feeling much better today she denies any chest pain or any shortness breath, she was seen earlier by orthopedic surgery and she is scheduled to be discharged to [facility] tomorrow morning. Objective - Vital Signs Vital signs: Vital Signs Temp 97.8 F 08/24/17 07:00 Pulse 93 08/24/17 07:00 Resp 18 08/24/17 07:00 BP 148/63 08/24/17 07:00 Pulse Ox 96 08/24/17 07:00 Intake & Output 08/23/17 08/24/17 08/24/17 18:59 06:59 18:59 Intake Total 400 Balance 400 Weight 74.5 kg 74.5 kg Intake: Intake, IV Titration 400 Amount Sodium Chloride 0.9% 1, 400 000 ml @ 50 mls/hr IV . Q20H [facility] Rx#:[id number] Other: Voiding Method Bedpan Bedpan Bedpan # Voids 1 1 # Bowel Movements 1 - Labs CBC & Chem 7: 08/24/17 08:06 08/24/17 08:06 Labs: Abnormal Lab Results - Last 24 Hours (Table) 08/23/17 08/23/17 08/24/17 Range/Units 17:17 20:40 07:18 RBC (3.80-5.40) m/uL Hgb (11.4-16.0) gm/dL Hct (34.0-46.0) % MCV (80.0-100.0) fL MCHC (31.0-37.0) g/dL Plt Count (150-450) k/uL Potassium (3.5-5.1) mmol/L Chloride (98-107) mmol/L BUN (7-17) mg/dL Creatinine (0.52-1.04) mg/dL POC Glucose (mg/dL) 129 H 128 H 108 H (75-99) mg/dL Calcium (8.4-10.2) mg/dL Total Protein (6.3-8.2) g/dL Albumin (3.5-5.0) g/dL 08/24/17 08/24/17 08/24/17 Range/Units 08:06 08:06 11:53 RBC 2.44 L (3.80-5.40) m/uL Hgb 7.6 L (11.4-16.0) gm/dL Hct 25.1 L (34.0-46.0) % MCV 102.8 H (80.0-100.0) fL MCHC 30.4 L (31.0-37.0) g/dL Plt Count 99 L (150-450) k/uL Potassium 5.2 H (3.5-5.1) mmol/L Chloride 111 H (98-107) mmol/L BUN 78 H (7-17) mg/dL Creatinine 1.81 H (0.52-1.04) mg/dL POC Glucose (mg/dL) 207 H (75-99) mg/dL Calcium 8.1 L (8.4-10.2) mg/dL Total Protein 4.5 L (6.3-8.2) g/dL Albumin 2.3 L (3.5-5.0) g/dL Assessment and Plan Assessment: Assessment and Plan Plan: 1. Right nondisplaced distal femur fracture and proximal tibia and fibula fracture. Continue current pain management with Dilaudid 0.5 mg IV push every 4 hours as well as [place] 10/325 mg 1 tablet 4 hours as needed, patient is already on morphine sulfate twice every day. Continue immobilizer, physical therapy the lesion, continue other management as per orthopedic service. 2. Chronic diastolic heart failure. Continue Coreg 25 mg orally twice every day, Lasix 40 mg orally once every day. 2. Diabetic gastroparesis . On Reglan 10 mg 3 times daily. 3. Chronic iron deficiency anemia with drop in hemoglobin. Monitor for blood loss anemia.. Continue iron 325 mg orally twice every day, vitamin B12. Patient is on Procrit type injections through Dr. Guido with improvement of hemoglobin. 4. Acute kidney injury (present on admission) with stage III chronic kidney disease. Monitor chemistries, avoid nephrotoxic agents. Continue sodium bicarb 650 mg daily. Prandin and Lasix will be discontinued. IV fluids at 50 mL per hour for 1 L. Recheck labs in the morning. 5. Rheumatoid arthritis. Stable at this time. She is on prednisone 10 mg daily 6. Chronic pain syndrome. Patient has been on MS Contin 15 mg twice a day along with [place] 10/325 g every 4 hours as needed. 7. Hypothyroidism. Continue Cytomel 5 mcg orally daily. 8. Diabetes mellitus type 2. Continue Levemir only. 9. CAD. stable. Continue with Coreg 25 mg orally twice every day, Imdur 30 mg orally once every day, Lipitor 20 mg orally once every day. 10. Hypertension and hypertensive cardiovascular disease. Continue coreg 25 mg orally twice daily, hydralazine 25 mg 3 times daily. Amlodipine discontinued by cardiology. 11. Hyperlipidemia. continue Lipitor 20 mg orally once every day. 12. Chronic neuropathy: Mostly idiopathic peripheral neuropathy and diabetic neuropathy as well to continue Neurontin 100 mg 3 times a day. 13. GI prophylaxis. Continue home Protonix 40 milligrams orally once every day. 14. DVT prophylaxis. Heparin 5000 units SC Q 8 h. 15. Patient is stable medically to be discharged.
[2017-08-24] MEDS: MAGNESIUM OXIDE 400 MG TAB PO SCH (20:47)
[2017-08-24] MEDS: ATORVASTATIN 20 MG TAB PO SCH (20:47)
[2017-08-24 21:22] LABS: Glucose,Whole Blood 227 mg/dL (75-99)
[2017-08-25] MEDS: NEOMYCIN-POLYMYXIN-DEXAMETH (3.5-10,000-0.1) DROPS 5 ML BTL RIGHT EYE SCH ×6 (04:42→22:25)
[2017-08-25] MEDS: LIDOCAINE 5% OINTMENT 50 GM JAR TOPICAL SCH ×8 (05:48→23:02)
[2017-08-25] MEDS: LEVOTHYROXINE 25 MCG TAB PO SCH (06:24)
[2017-08-25 07:41] LABS: Glucose,Whole Blood 119 mg/dL (75-99)
[2017-08-25] MEDS: CARVEDILOL 12.5 MG TAB PO SCH ×2 (08:33→17:57)
[2017-08-25] MEDS: PANTOPRAZOLE 40 MG TABLET PO SCH (08:35)
[2017-08-25] MEDS: METOCLOPRAMIDE 10 MG TAB PO SCH ×3 (08:35→17:56)
[2017-08-25] MEDS: ISOSORBIDE MONONITRATE ER 30 MG TAB.ER.24H PO SCH (08:35)
[2017-08-25] MEDS: FERROUS SULFATE 325 MG TAB PO SCH ×2 (08:36→22:23)
[2017-08-25] MEDS: predniSONE 10 MG TAB PO SCH (08:36)
[2017-08-25] MEDS: MORPHINE SULFATE ER 15 MG TABLET PO SCH ×2 (08:36→22:23)
[2017-08-25] MEDS: CYANOCOBALAMIN 500 MCG TAB PO SCH (08:36)
[2017-08-25] MEDS: LIOTHYRONINE SODIUM 5 MCG TAB PO SCH (08:38)
[2017-08-25] MEDS: hydrALAZINE HCL 25 MG TAB PO SCH ×3 (08:41→22:24)
[2017-08-25] MEDS: GABAPENTIN 100 MG CAP PO SCH ×3 (08:41→22:24)
[2017-08-25] MEDS: INSULIN DETEMIR 100 UNIT/ML 10 ML VIAL SQ SCH (08:42)
[2017-08-25] MEDS: SODIUM BICARBONATE TAB 650 MG TAB PO SCH (08:42)
[2017-08-25 12:20] LABS: Glucose,Whole Blood 245 mg/dL (75-99)
--- NOTE | 2017-08-25 12:42 | P.PN ---
Subjective Progress Note Date: 08/25/17 Principal diagnosis: Right nondisplaced distal femur fracture and proximal tibia and fibula fracture Patient continued to be in intractable pain requiring high doses of pain medication patient currently is sleepy but arousable to voice command seems to be appropriate the left and oriented 3 no major events reported by nursing staff Objective - Vital Signs Vital signs: Vital Signs Temp 97.8 F 08/25/17 07:00 Pulse 91 08/25/17 07:00 Resp 18 08/25/17 07:00 BP 149/70 08/25/17 07:00 Pulse Ox 93 L 08/25/17 07:00 Intake & Output 08/24/17 08/25/17 08/25/17 18:59 06:59 18:59 Weight 78 kg Other: Voiding Method Bedpan Bedpan Bedpan # Voids 3 1 # Bowel Movements 1 - Exam Gen.: in stated age, no acute distress Heart: Normal S1-S2 Lungs: Clear to auscultation bilaterally Abdomen: Soft, no tenderness, positive bowel sounds in all 4 quadrant no guarding or rebound Skin: No new rash Psych: Alert and oriented 3 Neuro: No focal deficit Lower extremity bilateral edema stable from prior examination according to the patient - Labs CBC & Chem 7: 08/24/17 08:06 08/24/17 08:06 Labs: Abnormal Lab Results - Last 24 Hours (Table) 08/24/17 08/25/17 08/25/17 Range/Units 21:09 07:36 12:18 POC Glucose (mg/dL) 227 H 119 H 245 H (75-99) mg/dL Assessment and Plan Assessment: 1. Right nondisplaced distal fibular fracture and proximal tibia and fibula fracture. Will follow-up with dorsal recommendation regarding discharge planning continue current pain management continue DVT prophylaxis and bowel regimen. 2. Diastolic heart failure. Seems to be compensated continue monitoring and continue cardio protective medication. 3. Diabetes mellitus. Continue insulin sliding scale. 4. Gastroparesis. Continue Reglan. 5. Anemia. Chronic would continue vitamins and iron supplement. 6. Rheumatoid arthritis. Continue prednisone 10 mg daily. 1. Chronic pain syndrome. Would continue current pain medication. 8. Hypertension. Controlled with continue current medication. 9. Peripheral neuropathy. With continue Neurontin and other pain medication. Discharge planning to subacute rehab facility when bed available
[2017-08-25 17:24] LABS: Glucose,Whole Blood 229 mg/dL (75-99)
[2017-08-25 20:26] LABS: Glucose,Whole Blood 233 mg/dL (75-99)
[2017-08-25] MEDS: INSULIN ASPART 100 UNIT/ML 1 ML 10 ML VIAL SQ SCH (22:23)
[2017-08-25] MEDS: ATORVASTATIN 20 MG TAB PO SCH (22:24)
[2017-08-25] MEDS: MAGNESIUM OXIDE 400 MG TAB PO SCH (22:25)
[2017-08-26] MEDS: NEOMYCIN-POLYMYXIN-DEXAMETH (3.5-10,000-0.1) DROPS 5 ML BTL RIGHT EYE SCH ×6 (00:11→22:20)
[2017-08-26] MEDS: LIDOCAINE 5% OINTMENT 50 GM JAR TOPICAL SCH ×8 (03:19→22:20)
[2017-08-26] MEDS: LEVOTHYROXINE 25 MCG TAB PO SCH (06:12)
[2017-08-26 07:48] LABS: Glucose,Whole Blood 88 mg/dL (75-99)
[2017-08-26 07:59] LABS: Appearance,Urine Cloudy (Clear); Bacteria,Urine Many /hpf; Bilirubin,Urine Negative (Negative); Blood,Urine Negative (Negative); Color,Urine Yellow; Glucose,Urine (UA) Negative (Negative); Ketones,Urine Negative (Negative); Leukocyte Esterase,Urine Large (Negative); Mucus,Urine Rare /hpf; Nitrite,Urine Positive (Negative); Protein,Urine Trace (Negative); RBC,Urine 2 /hpf (0-5); Specific Gravity,Urine 1.012 (1.001-1.035); Squamous Epithelial Cell,Urine 4 /hpf (0-4); Urobilinogen,Urine <2.0 mg/dL (<2.0); WBC,Urine 67 /hpf (0-5)
[2017-08-26] MEDS: INSULIN ASPART 100 UNIT/ML 1 ML 10 ML VIAL SQ SCH ×4 (08:43→22:05)
[2017-08-26] MEDS: CYANOCOBALAMIN 500 MCG TAB PO SCH (08:47)
[2017-08-26] MEDS: hydrALAZINE HCL 25 MG TAB PO SCH ×3 (08:47→22:19)
[2017-08-26] MEDS: CARVEDILOL 12.5 MG TAB PO SCH ×2 (08:47→17:54)
[2017-08-26] MEDS: GABAPENTIN 100 MG CAP PO SCH ×3 (08:47→22:19)
[2017-08-26] MEDS: ISOSORBIDE MONONITRATE ER 30 MG TAB.ER.24H PO SCH (08:47)
[2017-08-26] MEDS: PANTOPRAZOLE 40 MG TABLET PO SCH (08:47)
[2017-08-26] MEDS: SODIUM BICARBONATE TAB 650 MG TAB PO SCH (08:47)
[2017-08-26] MEDS: FERROUS SULFATE 325 MG TAB PO SCH ×2 (08:47→22:19)
[2017-08-26] MEDS: METOCLOPRAMIDE 10 MG TAB PO SCH ×3 (08:48→17:54)
[2017-08-26] MEDS: LIOTHYRONINE SODIUM 5 MCG TAB PO SCH (08:48)
[2017-08-26] MEDS: predniSONE 10 MG TAB PO SCH (08:49)
[2017-08-26] MEDS: MORPHINE SULFATE ER 15 MG TABLET PO SCH ×2 (08:53→22:19)
[2017-08-26] MEDS: INSULIN DETEMIR 100 UNIT/ML 10 ML VIAL SQ SCH (08:55)
--- NOTE | 2017-08-26 11:09 | P.PN ---
Subjective Progress Note Date: 08/26/17 Principal diagnosis: Right nondisplaced distal femur fracture and proximal tibia and fibula fracture Patient continued to be hemodynamic a stable overnight no major events reported by nursing staff patient currently denying chest pain shortness breath nausea vomiting abdominal pain dizziness lightheadedness or blurry vision. Her daughter and her granddaughter at the bedside have multiple concerns and questions all addressed at the bedside Objective - Vital Signs Vital signs: Vital Signs Temp 97.6 F 08/26/17 07:00 Pulse 90 08/26/17 07:00 Resp 16 08/26/17 07:00 BP 133/60 08/26/17 07:00 Pulse Ox 97 08/26/17 07:55 Intake & Output 08/25/17 08/26/17 08/26/17 18:59 06:59 18:59 Intake Total 590 Balance 590 Weight 78.2 kg Intake: Oral 590 Other: Voiding Method Bedpan Bedpan Bedpan # Voids 1 2 1 - Exam Gen.: in stated age, no acute distress Heart: Normal S1-S2 Lungs: Clear to auscultation bilaterally Abdomen: Soft, no tenderness, positive bowel sounds in all 4 quadrant no guarding or rebound Skin: No new rash Psych: Alert and oriented 3 Neuro: No focal deficit Lower extremity bilateral edema stable from prior examination according to the patient - Labs CBC & Chem 7: 08/24/17 08:06 08/24/17 08:06 Labs: Abnormal Lab Results - Last 24 Hours (Table) 08/25/17 08/25/17 08/25/17 Range/Units 12:18 17:15 20:24 POC Glucose (mg/dL) 245 H 229 H 233 H (75-99) mg/dL Urine Appearance (Clear) Urine Protein (Negative) Urine Nitrite (Negative) Ur Leukocyte Esterase (Negative) Urine WBC (0-5) /hpf Urine Bacteria (None) /hpf Urine Mucus (None) /hpf 08/26/17 Range/Units 07:40 POC Glucose (mg/dL) (75-99) mg/dL Urine Appearance Cloudy H (Clear) Urine Protein Trace H (Negative) Urine Nitrite Positive H (Negative) Ur Leukocyte Esterase Large H (Negative) Urine WBC 67 H (0-5) /hpf Urine Bacteria Many H (None) /hpf Urine Mucus Rare H (None) /hpf Assessment and Plan Assessment: 1. Right nondisplaced distal fibular fracture and proximal tibia and fibula fracture. Will follow-up with dorsal recommendation regarding discharge planning continue current pain management continue DVT prophylaxis and bowel regimen. 2. Diastolic heart failure. Seems to be compensated continue monitoring and continue cardio protective medication. 3. Diabetes mellitus. Continue insulin sliding scale. 4. Gastroparesis. Continue Reglan. 5. Anemia. Chronic would continue vitamins and iron supplement. 6. Rheumatoid arthritis. Continue prednisone 10 mg daily. 1. Chronic pain syndrome. Would continue current pain medication. 8. Hypertension. Controlled with continue current medication. 9. Peripheral neuropathy. With continue Neurontin and other pain medication. 10. Asymptomatic bacteriuria. Patient is denying any symptoms I would like to continue supportive care plan discussed with the patient's daughter at the bedside. I have discussed the case with case management where patient was declined by a [facility] and they would like to explore the opportunity for inpatient rehab discharge and I would like to consult physical medicine and rehab and follow-up with the recommendation
[2017-08-26 11:52] LABS: Glucose,Whole Blood 151 mg/dL (75-99)
[2017-08-26 17:23] LABS: Glucose,Whole Blood 96 mg/dL (75-99)
[2017-08-26 20:42] LABS: Glucose,Whole Blood 130 mg/dL (75-99)
[2017-08-26] MEDS: MAGNESIUM OXIDE 400 MG TAB PO SCH (22:19)
[2017-08-26] MEDS: ATORVASTATIN 20 MG TAB PO SCH (22:19)
[2017-08-27] MEDS: HYDROcodone/APAP 10-325MG 1 EACH TAB PO PRN (00:30)
[2017-08-27] MEDS: NEOMYCIN-POLYMYXIN-DEXAMETH (3.5-10,000-0.1) DROPS 5 ML BTL RIGHT EYE SCH ×6 (00:50→21:45)
[2017-08-27] MEDS: LIDOCAINE 5% OINTMENT 50 GM JAR TOPICAL SCH ×8 (00:50→21:47)
[2017-08-27 02:55] LABS: Glucose,Whole Blood 128 mg/dL (75-99)
[2017-08-27] MEDS: LEVOTHYROXINE 25 MCG TAB PO SCH (06:14)
--- NOTE | 2017-08-27 07:08 | P.CONS ---
History of Present Illness - Chief Complaint Walking difficulty, right knee pain - History of Present Illness I had the op to see patient for inpatient rehab consultation with regard to walking difficulty. She was admitted to [facility] August 21 history of fall and right knee pain. Knee x-ray demonstrates nondisplaced fracture of tib-fib possible fracture at femur. Pelvic x-ray demonstrates severe arthritic change. Knee CT demonstrates much osteopenia, transverse fracture tibial metaphysis, small joint effusion. PT reports maximal assistance to person for bed mobility and fatigues quickly. Patient declined OT evaluation. [facility], known to Dr. Sanchez for previous right TKA. Previous functional history as elicited from patient: 67-year-old right-handed white female who is lives in one form with daughter. Daughter does the laundry and driving and they share the cooking. Daughter is not working and has stage III breast cancer. Patient describes independent with some cooking, sponge bath and gait with roller walker. Dr. Lerner is regular doctor. Family history of cancer in both parents as well as daughter. Review of Systems Review of systems: ENT: Denies sneezes or discharge. Eyes: Denies discharge or photophobia. Cardiac: Denies chest pain or palpitation. Pulmonary: Denies cough or shortness of breath. Breast: Denies discharge or lumps. Gastrointestinal: Denies nausea, emesis, constipation, diarrhea. Genitourinary: Denies discharge or frequency. Musculoskeletal: Pain everywhere including right knee. Neurologic: Denies motor or sensory change. Endocrine: Denies shakes or sweats. Oncology: Denies cancers. Dermatologic: Denies rash, itching, pruritus. ALLERGY/immunology: Denies sneezes, rashes. Past Medical History Past Medical History: Coronary Artery Disease (CAD), Heart Failure, Diabetes Mellitus, GERD/Reflux, Hyperlipidemia, Hypertension, Myocardial Infarction (MN) , Pneumonia, Renal Disease, Rheumatoid Arthritis (RA), Thyroid Disorder Additional Past Medical History / Comment(s): Pt recently admitted to [facility] with lower extremity edema r/t amlodipine. Other HX: Past low vitamin d levels which caused renal deficiency (CKD stage III), per pt, kidney stones, UTIs, parathyroid overactive related to low vit d levels per pt, pt states her vitamin D supplement has been discontinued-levels are now normal, chronic prednisone secondary to RA followed by Dr. Marlow, chronic CHF, NIDDM type II, chronic peripheral neuropathies hands and feet, chronic low back pain, chronic ANEMIA, hypothyroid, overactive parathyroid, COMPRESSION FX L1, PAST FALLS. Last Myocardial Infarction Date:: 11/2016 History of Any Multi-Drug Resistant Organisms: C-DIFF Year Discovered:: 2014 MDRO Source:: C-DIFF Past Surgical History: Back Surgery, Section, Cholecystectomy, Heart Catheterization, Joint Replacement, Orthopedic Surgery, Tubal Ligation Additional Past Surgical History / Comment(s): Right TKA in 2005 by Johnnie Diaz carpel tunnel release, CYST REMOVED (NECK) AGE 6, 2 back surgery 2004, EGD/ colonoscopy. Past Anesthesia/Blood Transfusion Reactions: No Reported Reaction Additional Past Anesthesia/Blood Transfusion Reaction / Comm: Blood pressure is labile at times with surgery. Smoking Status: Never smoker - Past Family History Sister(s) Family Medical History: Cancer, Diabetes Mellitus Additional Family Medical History / Comment(s): 11 siblings, 6 left. One sister had leukemia and another had ovarian cancer. Mother Family Medical History: Cancer, Diabetes Mellitus Additional Family Medical History / Comment(s): Addisons disease, reproductive cancer. Father Family Medical History: Cancer, Hypertension Additional Family Medical History / Comment(s): Father had throat cancer. He was a smoker. He also had anxiety. Medications and Allergies Home Medications Medication Instructions Recorded Confirmed Type Omeprazole [PriLOSEC] 20 mg PO BID 02/20/14 08/21/17 History Cyanocobalamin [Vitamin B-12] 1,000 mcg PO DAILY 08/19/14 08/21/17 History Ondansetron Odt [Zofran ODT] 4 mg PO Q8HR PRN #15 tab 01/04/15 08/21/17 Rx Liothyronine Sodium [Cytomel] 5 mcg PO DAILY 01/07/15 08/21/17 History Levothyroxine Sodium [Synthroid] 25 mcg PO DAILY@0630 tab 01/12/15 08/21/17 Rx ALPRAZolam [Xanax] 0.25 mg PO BID PRN 09/02/16 08/21/17 History Gabapentin [Neurontin] 100 mg PO TID 09/02/16 08/21/17 History Morphine Sulfate ER [Ms Contin] 15 mg PO BID 09/02/16 08/21/17 History HYDROcodone/APAP 10-325MG [[place] 1 tab PO Q4HR PRN 09/25/16 08/21/17 History 10-325] Nitroglycerin Sl Tabs [Nitrostat] 0.4 mg SUBLINGUAL Q5M PRN #25 tab 12/09/16 Rx Isosorbide Mononitrate ER [Imdur] 30 mg PO QAM 01/17/17 08/21/17 History Sodium Bicarbonate Tab 650 mg PO DAILY 03/28/17 08/21/17 History Carvedilol 25 mg PO BID 05/03/17 08/21/17 History Magnesium Oxide [Mag-Ox] 250 mg PO HS 05/03/17 08/21/17 History Simvastatin 40 mg PO HS 05/03/17 08/21/17 History Ferrous Sulfate [Iron (65 MG 325 mg PO BID #0 06/03/17 08/21/17 Rx Elemental)] predniSONE 10 mg PO DAILY tab 06/03/17 08/21/17 Rx Repaglinide [Prandin] 1 mg PO AC-BRKFST 06/09/17 08/21/17 History Repaglinide [Prandin] 2 mg PO AC-LUNCH 06/09/17 08/21/17 History Metoclopramide [Reglan] 10 mg PO AC-TID #90 tab 06/11/17 08/21/17 Rx Furosemide [Lasix] 40 mg PO DAILY 08/12/17 08/21/17 History Linagliptin [Tradjenta] 5 mg PO DAILY tablet 08/15/17 08/21/17 Rx Vpneadzz-Zteambmtf-Qozddtmf 1 drops RIGHT EYE Q4HR bottle 08/15/17 08/21/17 Rx [Maxitrol Ophth Susp] hydrALAZINE HCL [Apresoline] 25 mg PO TID #90 tab 08/15/17 08/21/17 Rx Insulin Glargine,Hum.rec.anlog 8 units SQ DAILY 08/21/17 08/21/17 History [Toana Soljesica] Allergies Allergy/AdvReac Type Severity Reaction Status Date / Time codeine Allergy Rash/Hives Verified 08/21/17 07:59 Sulfa (Sulfonamide Allergy Rash/Hives Verified 08/21/17 07:59 Antibiotics) gold Allergy Unknown Uncoded 08/21/17 06:29 Physical Exam Vitals: Vital Signs Temp Pulse Pulse Resp BP Pulse Ox 08/27/17 04:21 98.1 F 08/26/17 21:00 100.5 F H 104 H 18 142/65 91 L 08/26/17 15:00 97.9 F 92 18 143/66 95 08/26/17 07:55 97 Intake and Output 08/26/17 08/27/17 08/27/17 22:59 06:59 14:59 Other: Voiding Method Bedpan Bedpan # Voids 1 3 Weight 77.5 kg Skin: Good color, texture, turgor. General: Overweight build and uncomfortable appearance. Head: Normocephalic, atraumatic. Eyes: Symmetric. Pupils equal round. Ears: Symmetric. Hearing within normal limits. Mouth: Clear. Neck: Supple. Carotid without bruit. Cardiac: Regular rate and rhythm. Lungs: Clear anteriorly and posteriorly. Abdomen: Soft active nontender. Extremities: Normal tone. Crepitus noted really at all joints. Neurological: Mental status: Alert, cooperative, pleasant. Cranial nerves: Symmetric facial tone and trapezius. Motor: Can actively elevate arms off the bed but not legs.. Sensation: Intact throughout. DTRs: Symmetric and equal throughout. Mobility: Would require physical assistance for bed mobility. Results CBC & Chem 7: 08/24/17 08:06 08/24/17 08:06 Labs: Abnormal Lab Results - Last 24 Hours (Table) 08/26/17 08/26/17 08/26/17 Range/Units 07:40 11:50 20:26 POC Glucose (mg/dL) 151 H 130 H (75-99) mg/dL Urine Appearance Cloudy H (Clear) Urine Protein Trace H (Negative) Urine Nitrite Positive H (Negative) Ur Leukocyte Esterase Large H (Negative) Urine WBC 67 H (0-5) /hpf Urine Bacteria Many H (None) /hpf Urine Mucus Rare H (None) /hpf 08/27/17 Range/Units 02:51 POC Glucose (mg/dL) 128 H (75-99) mg/dL Urine Appearance (Clear) Urine Protein (Negative) Urine Nitrite (Negative) Ur Leukocyte Esterase (Negative) Urine WBC (0-5) /hpf Urine Bacteria (None) /hpf Urine Mucus (None) /hpf Microbiology - Last 24 Hours (Table) 08/26/17 07:40 Urine Culture - Preliminary Urine,Voided Assessment and Plan (1) Periprosthetic fracture around internal prosthetic right knee joint Current Visit: Yes Status: Acute Code(s): M97.11XA - PERIPROSTH FRACTURE AROUND INTERNAL PROSTH R KNEE JDemarco INLIZA SNOMED Code(s): 581657628 Plan: Impression: 1. Walking difficulty. 2. Periprostatic fracture, proximal tib-fib fracture with possible femur fracture. 3. Chronic kidney disease. 4. Rheumatoid arthritis. 5. Diabetes. 6. Hypertension. 7. Dyslipidemia. 8. Coronary artery disease with History of MN. Comments and plan: Patient with IVC concerns. However is much pain and it appears to have poor tolerance to therapies currently. At this time, don't patient could tolerate a full inpatient rehab program but will follow closely with yourself. She appears to be full for rehab admission.
[2017-08-27 07:29] LABS: Glucose,Whole Blood 152 mg/dL (75-99)
--- NOTE | 2017-08-27 09:32 | P.PN ---
Subjective Progress Note Date: 08/27/17 Principal diagnosis: Distal femur, proximal tib/fib fracture The patient is a 67-year-old female who was admitted after sustaining a fall at home. She was found to have fractures to her distal femur which is periprosthetic. And fractures to the proximal fibula and tibia. The patient was placed in a knee immobilizer. She is unable to work with physical therapy due to the pain. She is currently on MS Contin, [place], and Dilaudid. No new complaints today. CT of the right knee revealed fractures to the medial and lateral distal femur with periprosthetic extension and transverse to oblique fracture of the proximal tibia that may extend into the anterior medial tibial tray screw. And minimally displaced fibular neck fracture is present. There is a small joint effusion. Extensive vascular calcifications are present. We are currently awaiting a discharge plan. She was not accepted into skilled rehab because she is not getting up with physical therapy. Objective - Vital Signs Vital signs: Vital Signs Temp 97.8 F 08/27/17 07:00 Pulse 84 08/27/17 07:00 Resp 18 08/27/17 07:00 BP 145/67 08/27/17 07:00 Pulse Ox 97 08/27/17 07:00 Intake & Output 08/26/17 08/27/17 08/27/17 18:59 06:59 18:59 Weight 77.5 kg Other: Voiding Method Bedpan Bedpan # Voids 3 3 - Exam The patient is a 67-year-old female who is in no acute distress. She is alert and oriented 3. Exam of the right lower extremity reveals swelling and ecchymosis to the right knee. There is a knee immobilizer in place. There is pain to the proximal tibia and fibula. Also pain to the distal femur. Calf is soft and nontender. She has good foot and ankle motion. No neurological deficits. Circulatory status status is intact. - Labs CBC & Chem 7: 08/24/17 08:06 08/24/17 08:06 Labs: Abnormal Lab Results - Last 24 Hours (Table) 08/26/17 08/26/17 08/27/17 Range/Units 11:50 20:26 02:51 POC Glucose (mg/dL) 151 H 130 H 128 H (75-99) mg/dL 08/27/17 Range/Units 07:25 POC Glucose (mg/dL) 152 H (75-99) mg/dL Microbiology - Last 24 Hours (Table) 08/26/17 07:40 Urine Culture - Preliminary Urine,Voided Assessment and Plan (1) Fall Current Visit: Yes Status: Acute Code(s): W19.XXXA - UNSPECIFIED FALL, INITIAL ENCOUNTER SNOMED Code(s): 8432731 (2) Fracture of proximal end of right fibula Current Visit: Yes Status: Acute Code(s): S82.831A - OTH FRACTURE OF UPPER AND LOWER END OF RIGHT FIBULA, INIT SNOMED Code(s): 80343160 (3) Fracture of proximal end of right tibia Current Visit: Yes Status: Acute Code(s): S82.101A - UNSP FRACTURE OF UPPER END OF RIGHT TIBIA, INIT FOR CLOS FX SNOMED Code(s): 55986425 (4) Periprosthetic fracture around internal prosthetic right knee joint Current Visit: Yes Status: Acute Code(s): M97.11XA - PERIPROSTH FRACTURE AROUND INTERNAL PROSTH R KNEE JT, INIT SNOMED Code(s): 736823562 Plan: The clinical and x-ray findings were discussed with the patient. The case was also discussed with Dr. Sanchez. Continue pain control. Continue physical and occupational therapy. Strict non-weightbearing to the right lower extremity with knee immobilizer in place. The patient is looking at discharge to an [facility] home. She is orthopedically stable for discharge. We will continue to follow the patient closely.
[2017-08-27] MEDS: FERROUS SULFATE 325 MG TAB PO SCH ×2 (09:40→21:46)
[2017-08-27] MEDS: GABAPENTIN 100 MG CAP PO SCH ×3 (09:41→21:48)
[2017-08-27] MEDS: CARVEDILOL 12.5 MG TAB PO SCH ×2 (09:41→18:10)
[2017-08-27] MEDS: hydrALAZINE HCL 25 MG TAB PO SCH ×3 (09:41→21:48)
[2017-08-27] MEDS: CYANOCOBALAMIN 500 MCG TAB PO SCH (09:41)
[2017-08-27] MEDS: predniSONE 10 MG TAB PO SCH (09:41)
[2017-08-27] MEDS: SODIUM BICARBONATE TAB 650 MG TAB PO SCH (09:41)
[2017-08-27] MEDS: METOCLOPRAMIDE 10 MG TAB PO SCH ×3 (09:41→18:10)
[2017-08-27] MEDS: LIOTHYRONINE SODIUM 5 MCG TAB PO SCH (09:42)
[2017-08-27] MEDS: ISOSORBIDE MONONITRATE ER 30 MG TAB.ER.24H PO SCH (09:42)
[2017-08-27] MEDS: PANTOPRAZOLE 40 MG TABLET PO SCH (09:42)
[2017-08-27] MEDS: MORPHINE SULFATE ER 15 MG TABLET PO SCH ×2 (09:50→21:47)
[2017-08-27 11:59] LABS: Glucose,Whole Blood 229 mg/dL (75-99)
[2017-08-27] MEDS: INSULIN ASPART 100 UNIT/ML 1 ML 10 ML VIAL SQ SCH ×4 (12:00→21:46)
[2017-08-27] MEDS: INSULIN DETEMIR 100 UNIT/ML 10 ML VIAL SQ SCH (12:08)
--- NOTE | 2017-08-27 15:03 | P.PN ---
Subjective Progress Note Date: 08/27/17 This is a 67-year-old female patient of Dr. Lerner with past medical history of rheumatoid arthritis on prednisone and follows with Dr. Marlow, hyperlipidemia, chronic anemia, CKD [address] Cowan, chronic pain syndrome, hypothyroidism, history of coronary artery disease that is post 2 MIs , chronic diastolic heart failure, hypertension, diabetes mellitus type 2, diabetic neuropathy, diabetic gastroparesis, lower back pain with compression fracture L1, chronic anemia and follows with Dr. Guido, patient woke up in the morning and she was trying to walk and she suddenly fell down and landed on the right leg, she stood up and she walked a few steps, her blood glucose level was around 64, patient ended up coming to the ER for evaluation she was found to have a distal femur fracture with nondisplaced proximal fibula and tibia fracture, she was placed in immobilizer she was admitted under orthopedic service and we were asked to see the patient in consultation for medical management. 08/22: Patient states she had awful night due to extreme pain which was not controlled. According to her nurse her pulse ox dropped in the 80s during the night and she was placed on oxygen and patient had some confusion. Oxygen is now bothering her and we will plan to take her off if pulse oxing well. Noted her hemoglobin today is 7.7. BUN 85 and creatinine 1.83. Prandin and Lasix discontinued and patient will be placed on 0.9 normal saline at 50 mL per hour for 1 L. Patient states she is eating but not drinking very much. She has had a bowel movement which was normal. CAT scan of the knee reveals marked osteopenia. Fractures of both medial and lateral distal femoral metadiaphysis with. Prosthetic extension to the for moral condylar components of the prosthesis. Minimal cortical offset is seen medially. Transverse to oblique fracture of the proximal tibial metadiaphysis. Fracture line may extend to the anterior medial tibial tray screw but otherwise shows no clear periprostatic extension. Subtle minimally offset fibular head/neck fracture. Small knee joint effusion, diffuse muscular atrophy and extensive vascular calcifications. 08/23: Patient has knee immobilizer ordered with strict nonweightbearing to the right side. Social work is developing plan for subacute rehab. Patient is requesting [facility] most likely she will be ready by tomorrow. Her pain is much better today. She denies any shortness of breath. Blood sugar is noted to be low and conjunctiva discontinued. 08/24: Patient is feeling much better today she denies any chest pain or any shortness breath, she was seen earlier by orthopedic surgery and she is scheduled to be discharged to [facility] tomorrow morning. 08/25: Patient continued to be in intractable pain requiring high doses of pain medication patient currently is sleepy but arousable to voice command seems to be appropriate the left and oriented 3 no major events reported by nursing staff 08/26: Patient continued to be hemodynamic a stable overnight no major events reported by nursing staff patient currently denying chest pain shortness breath nausea vomiting abdominal pain dizziness lightheadedness or blurry vision. Her daughter and her granddaughter at the bedside have multiple concerns and questions all addressed at the bedside 08/27: Patient has been evaluated by Dr. Paz and patient does not qualify for tolerance of inpatient therapies. Patient is being evaluated for placement at nursing homes for subacute rehab. Family is unable to care for her at home. Social work and case management following closely. Anticipate possible discharge later today. Objective - Vital Signs Vital signs: Vital Signs Temp 97.8 F 08/27/17 07:00 Pulse 84 08/27/17 07:00 Resp 18 08/27/17 07:00 BP 145/67 08/27/17 07:00 Pulse Ox 97 08/27/17 07:00 Intake & Output 08/26/17 08/27/17 08/27/17 18:59 06:59 18:59 Weight 77.5 kg Other: Voiding Method Bedpan Bedpan # Voids 3 3 - Exam General appearance: average body habitus, no acute distress - EENT Eyes: anicteric sclerae, EOMI, PERRLA, no ptosis, no scleral icterus, normal appearance ENT: hearing grossly normal, NA/AT, normal oropharynx, no thrush, no tonsillar exudates Ears: bilateral: normal - Neck Neck: no lymphadenopathy, normal ROM, no rigidity, no stridor, no thyromegaly Carotids: bilateral: upstroke normal Thyroid: bilateral: normal size - Respiratory Respiratory: bilateral: diminished, negative: dullness, rales, rhonchi, wheezing , prolonged expiration, prolonged inspiration - Cardiovascular Rhythm: regular Heart sounds: normal: S1, S2 Abnormal Heart Sounds: systolic murmur, no S3 Gallop, no S4 Gallop, no click - Gastrointestinal General gastrointestinal: normal bowel sounds, no scaphoid, soft, no splenomegaly, no tenderness, no umbilical hernia, no ventral hernia - Integumentary Integumentary: normal, normal turgor - Neurologic Neurologic: CNII-XII intact - Musculoskeletal Musculoskeletal: strength equal bilaterally - Psychiatric Psychiatric: A&O x's 3, appropriate affect, intact judgment & insight - Labs CBC & Chem 7: 08/24/17 08:06 08/24/17 08:06 Labs: Abnormal Lab Results - Last 24 Hours (Table) 08/26/17 08/26/17 08/27/17 Range/Units 11:50 20:26 02:51 POC Glucose (mg/dL) 151 H 130 H 128 H (75-99) mg/dL 08/27/17 Range/Units 07:25 POC Glucose (mg/dL) 152 H (75-99) mg/dL Microbiology - Last 24 Hours (Table) 08/26/17 07:40 Urine Culture - Preliminary Urine,Voided Assessment and Plan Plan: 1. Right nondisplaced distal femur fracture and proximal tibia and fibula fracture. Continue current pain management with Dilaudid 0.5 mg IV push every 4 hours as well as [place] 10/325 mg 1 tablet 4 hours as needed, patient is already on morphine sulfate twice every day. Continue immobilizer, physical therapy the lesion, continue other management as per orthopedic service. 2. Chronic diastolic heart failure. Continue Coreg 25 mg orally twice every day, Lasix 40 mg orally once every day. 2. Diabetic gastroparesis . On Reglan 10 mg 3 times daily. 3. Chronic iron deficiency anemia with drop in hemoglobin. Monitor for blood loss anemia.. Continue iron 325 mg orally twice every day, vitamin B12. Patient is on Procrit type injections through Dr. Guido with improvement of hemoglobin. 4. Acute kidney injury (present on admission) with stage III chronic kidney disease. Monitor chemistries, avoid nephrotoxic agents. Continue sodium bicarb 650 mg daily. Prandin and Lasix will be discontinued. IV fluids at 50 mL per hour for 1 L. Recheck labs in the morning. 5. Rheumatoid arthritis. Stable at this time. She is on prednisone 10 mg daily 6. Chronic pain syndrome. Patient has been on MS Contin 15 mg twice a day along with [place] 10/325 g every 4 hours as needed. 7. Hypothyroidism. Continue Cytomel 5 mcg orally daily. 8. Diabetes mellitus type 2. Continue Levemir only. 9. CAD. stable. Continue with Coreg 25 mg orally twice every day, Imdur 30 mg orally once every day, Lipitor 20 mg orally once every day. 10. Hypertension and hypertensive cardiovascular disease. Continue coreg 25 mg orally twice daily, hydralazine 25 mg 3 times daily. Amlodipine discontinued by cardiology. 11. Hyperlipidemia. continue Lipitor 20 mg orally once every day. 12. Chronic neuropathy: Mostly idiopathic peripheral neuropathy and diabetic neuropathy as well to continue Neurontin 100 mg 3 times a day. 13. GI prophylaxis. Continue home Protonix 40 milligrams orally once every day. 14. DVT prophylaxis. Heparin 5000 units SC Q 8 h. 15. Asymptomatic bacteriuria. 15. CODE STATUS: Full code. Discharge plan: To be determined Impression and plan of care have been directed as dictated by the signing physician. Nadja Kaur nurse practitioner acting as scribe for signing physician.
[2017-08-27 17:32] LABS: Glucose,Whole Blood 232 mg/dL (75-99)
[2017-08-27] MEDS: ALPRAZolam 0.25 MG TAB PO PRN (20:32)
[2017-08-27 21:14] LABS: Glucose,Whole Blood 224 mg/dL (75-99)
[2017-08-27] MEDS: ATORVASTATIN 20 MG TAB PO SCH (21:46)
[2017-08-27] MEDS: MAGNESIUM OXIDE 400 MG TAB PO SCH (21:47)
[2017-08-28] MEDS: NEOMYCIN-POLYMYXIN-DEXAMETH (3.5-10,000-0.1) DROPS 5 ML BTL RIGHT EYE SCH ×5 (02:37→16:19)
[2017-08-28] MEDS: LIDOCAINE 5% OINTMENT 50 GM JAR TOPICAL SCH ×5 (02:37→12:59)
[2017-08-28] MEDS: LEVOTHYROXINE 25 MCG TAB PO SCH (06:08)
[2017-08-28 07:44] LABS: Glucose,Whole Blood 66 mg/dL (75-99)
[2017-08-28 07:57] VITALS: BP 142/65; PULSE 88; RESP 14; TEMP 97.8
[2017-08-28 08:09] LABS: Glucose,Whole Blood 72 mg/dL (75-99)
--- NOTE | 2017-08-28 08:42 | P.DS ---
Providers Date of admission: 08/21/17 09:41 Expected date of discharge: 08/28/17 Attending physician: Kj Sanchez Consults: 08/21/17 09:40 Consult Physician Routine Consulting Provider: Fay Lerner Consult Reason/Comments: known Do you want consulting provider notified?: Yes 08/26/17 10:20 Consult Physician Routine Consulting Provider: Elliot Paz Consult Reason/Comments: [facility] Do you want consulting provider notified?: Yes Primary care physician: Fay Lerner - Discharge Diagnosis(es) (1) Fall Current Visit: Yes Status: Acute (2) Fracture of proximal end of right fibula Current Visit: Yes Status: Acute (3) Fracture of proximal end of right tibia Current Visit: Yes Status: Acute (4) Periprosthetic fracture around internal prosthetic right knee joint Current Visit: Yes Status: Acute Hospital Course: The patient is a 67-year-old female who presented to the hospital after sustaining a fall at home. She is found to have a periprosthetic fracture of her distal femur and proximal tibia as well as a proximal fibula fracture. She is placed in a knee immobilizer admitted for pain management rehab placement. She has been on strict nonweightbearing to the right leg. Today, the patient appears to be more comfortable. Vital signs are stable. She is alert and oriented 3. Exam of the right lower extremity reveals swelling and ecchymosis to the right knee. There is a small skin abrasion to the anterior aspect of the right lower leg. Range of motion of the right knee was not tested at this time. There is pain to palpation to the entire knee and lower leg. There is 2+ edema. She has good foot and ankle motion. Calf is soft and nontender. Neurological and circulatory status is intact. The patient did not qualify for skilled rehab or inpatient rehab at [facility]. The patient will be discharged to an adult foster fdc. The patient is orthopedically stable for discharge to foster fdc today. Pertinent Studies: Laboratory Tests 08/24/17 08:06 WBC 5.0 RBC 2.44 L Hgb 7.6 L Hct 25.1 L MCV 102.8 H Patient Condition at Discharge: Fair Plan - Discharge Summary Discharge Rx Participant: No New Discharge Prescriptions: No Action Omeprazole [PriLOSEC] 20 mg PO BID Cyanocobalamin [Vitamin B-12] 1,000 mcg PO DAILY Ondansetron Odt [Zofran ODT] 4 mg PO Q8HR PRN #15 tab PRN Reason: Nausea Liothyronine Sodium [Cytomel] 5 mcg PO DAILY Levothyroxine Sodium [Synthroid] 25 mcg PO DAILY@0630 tab Morphine Sulfate ER [Ms Contin] 15 mg PO BID Gabapentin [Neurontin] 100 mg PO TID ALPRAZolam [Xanax] 0.25 mg PO BID PRN PRN Reason: Anxiety HYDROcodone/APAP 10-325MG [[place] 10-325] 1 tab PO Q4HR PRN PRN Reason: Moderate Pain Nitroglycerin Sl Tabs [Nitrostat] 0.4 mg SUBLINGUAL Q5M PRN #25 tab PRN Reason: Chest Pain Isosorbide Mononitrate ER [Imdur] 30 mg PO QAM Sodium Bicarbonate Tab 650 mg PO DAILY Simvastatin 40 mg PO HS Magnesium Oxide [Mag-Ox] 250 mg PO HS Carvedilol 25 mg PO BID predniSONE 10 mg PO DAILY tab Ferrous Sulfate [Iron (65 MG Elemental)] 325 mg PO BID #0 Repaglinide [Prandin] 2 mg PO AC-LUNCH Repaglinide [Prandin] 1 mg PO AC-BRKFST Metoclopramide [Reglan] 10 mg PO AC-TID #90 tab Furosemide [Lasix] 40 mg PO DAILY hydrALAZINE HCL [Apresoline] 25 mg PO TID #90 tab Linagliptin [Tradjenta] 5 mg PO DAILY tablet Nxaejsfh-Zdtfyssmd-Uulgfawn [Maxitrol Ophth Susp] 1 drops RIGHT EYE Q4HR bottle Insulin Glargine,Hum.rec.anlog [Tounicholaso Solostar] 8 units SQ DAILY Discharge Medication List Omeprazole [PriLOSEC] 20 mg PO BID 02/20/14 [History] Cyanocobalamin [Vitamin B-12] 1,000 mcg PO DAILY 08/19/14 [History] Ondansetron Odt [Zofran ODT] 4 mg PO Q8HR PRN #15 tab 01/04/15 [Rx] Liothyronine Sodium [Cytomel] 5 mcg PO DAILY 01/07/15 [History] Levothyroxine Sodium [Synthroid] 25 mcg PO DAILY@0630 tab 01/12/15 [Rx] ALPRAZolam [Xanax] 0.25 mg PO BID PRN 09/02/16 [History] Gabapentin [Neurontin] 100 mg PO TID 09/02/16 [History] Morphine Sulfate ER [Ms Contin] 15 mg PO BID 09/02/16 [History] HYDROcodone/APAP 10-325MG [[place] 10-325] 1 tab PO Q4HR PRN 09/25/16 [History] Nitroglycerin Sl Tabs [Nitrostat] 0.4 mg SUBLINGUAL Q5M PRN #25 tab 12/09/16 [Rx ] Isosorbide Mononitrate ER [Imdur] 30 mg PO QAM 01/17/17 [History] Sodium Bicarbonate Tab 650 mg PO DAILY 03/28/17 [History] Carvedilol 25 mg PO BID 05/03/17 [History] Magnesium Oxide [Mag-Ox] 250 mg PO HS 05/03/17 [History] Simvastatin 40 mg PO HS 05/03/17 [History] Ferrous Sulfate [Iron (65 MG Elemental)] 325 mg PO BID #0 06/03/17 [Rx] predniSONE 10 mg PO DAILY tab 06/03/17 [Rx] Repaglinide [Prandin] 1 mg PO AC-BRKFST 06/09/17 [History] Repaglinide [Prandin] 2 mg PO AC-LUNCH 06/09/17 [History] Metoclopramide [Reglan] 10 mg PO AC-TID #90 tab 06/11/17 [Rx] Furosemide [Lasix] 40 mg PO DAILY 08/12/17 [History] Linagliptin [Tradjenta] 5 mg PO DAILY tablet 08/15/17 [Rx] Yjugqtxw-Idrsojqrs-Nocvzwkh [Maxitrol Ophth Susp] 1 drops RIGHT EYE Q4HR bottle 08/15/17 [Rx] hydrALAZINE HCL [Apresoline] 25 mg PO TID #90 tab 08/15/17 [Rx] Insulin Glargine,Hum.rec.anlog [Toana Solostyasmeen] 8 units SQ DAILY 08/21/17 [ History] Follow up Appointment(s)/Referral(s): Fay Lerner MD [Primary Care Provider] - 1-2 days Kj Sanchez DO [Doctor of Osteopathic Medicine] - 4 Weeks [facility], [NON-STAFF] - 1 Week Activity/Diet/Wound Care/Special Instructions: Strict non-weightbearing to the right lower extremity Knee immobilizer at all times Follow up with Dr. Sanchez in 4 weeks. Call [facility] with any questions or concerns, . Discharge Disposition: HOME WITH HOME HEALTH SERVICES
[2017-08-28] MEDS: CARVEDILOL 12.5 MG TAB PO SCH (09:56)
[2017-08-28] MEDS: METOCLOPRAMIDE 10 MG TAB PO SCH ×2 (09:57→12:57)
[2017-08-28] MEDS: hydrALAZINE HCL 25 MG TAB PO SCH ×2 (09:57→16:19)
[2017-08-28] MEDS: CYANOCOBALAMIN 500 MCG TAB PO SCH (09:58)
[2017-08-28] MEDS: FERROUS SULFATE 325 MG TAB PO SCH (09:59)
[2017-08-28] MEDS: PANTOPRAZOLE 40 MG TABLET PO SCH (09:59)
[2017-08-28] MEDS: GABAPENTIN 100 MG CAP PO SCH ×2 (09:59→16:19)
[2017-08-28] MEDS: predniSONE 10 MG TAB PO SCH (10:08)
[2017-08-28] MEDS: ISOSORBIDE MONONITRATE ER 30 MG TAB.ER.24H PO SCH (10:08)
[2017-08-28] MEDS: LIOTHYRONINE SODIUM 5 MCG TAB PO SCH (10:08)
[2017-08-28] MEDS: SODIUM BICARBONATE TAB 650 MG TAB PO SCH (10:08)
[2017-08-28] MEDS: INSULIN DETEMIR 100 UNIT/ML 10 ML VIAL SQ SCH (10:13)
[2017-08-28] MEDS: INSULIN ASPART 100 UNIT/ML 1 ML 10 ML VIAL SQ SCH ×2 (10:14→12:58)
[2017-08-28] MEDS: MORPHINE SULFATE ER 15 MG TABLET PO SCH (10:16)
[2017-08-28 11:58] LABS: Glucose,Whole Blood 142 mg/dL (75-99)
--- NOTE | 2017-08-28 13:30 | P.PN ---
Subjective Progress Note Date: 08/28/17 This is a 67-year-old female patient of Dr. Lerner with past medical history of rheumatoid arthritis on prednisone and follows with Dr. Marlow, hyperlipidemia, chronic anemia, CKD [address] Cowan, chronic pain syndrome, hypothyroidism, history of coronary artery disease that is post 2 MIs , chronic diastolic heart failure, hypertension, diabetes mellitus type 2, diabetic neuropathy, diabetic gastroparesis, lower back pain with compression fracture L1, chronic anemia and follows with Dr. Guido, patient woke up in the morning and she was trying to walk and she suddenly fell down and landed on the right leg, she stood up and she walked a few steps, her blood glucose level was around 64, patient ended up coming to the ER for evaluation she was found to have a distal femur fracture with nondisplaced proximal fibula and tibia fracture, she was placed in immobilizer she was admitted under orthopedic service and we were asked to see the patient in consultation for medical management. 08/22: Patient states she had awful night due to extreme pain which was not controlled. According to her nurse her pulse ox dropped in the 80s during the night and she was placed on oxygen and patient had some confusion. Oxygen is now bothering her and we will plan to take her off if pulse oxing well. Noted her hemoglobin today is 7.7. BUN 85 and creatinine 1.83. Prandin and Lasix discontinued and patient will be placed on 0.9 normal saline at 50 mL per hour for 1 L. Patient states she is eating but not drinking very much. She has had a bowel movement which was normal. CAT scan of the knee reveals marked osteopenia. Fractures of both medial and lateral distal femoral metadiaphysis with. Prosthetic extension to the for moral condylar components of the prosthesis. Minimal cortical offset is seen medially. Transverse to oblique fracture of the proximal tibial metadiaphysis. Fracture line may extend to the anterior medial tibial tray screw but otherwise shows no clear periprostatic extension. Subtle minimally offset fibular head/neck fracture. Small knee joint effusion, diffuse muscular atrophy and extensive vascular calcifications. 08/23: Patient has knee immobilizer ordered with strict nonweightbearing to the right side. Social work is developing plan for subacute rehab. Patient is requesting [facility] most likely she will be ready by tomorrow. Her pain is much better today. She denies any shortness of breath. Blood sugar is noted to be low and conjunctiva discontinued. 08/24: Patient is feeling much better today she denies any chest pain or any shortness breath, she was seen earlier by orthopedic surgery and she is scheduled to be discharged to [facility] tomorrow morning. 08/25: Patient continued to be in intractable pain requiring high doses of pain medication patient currently is sleepy but arousable to voice command seems to be appropriate the left and oriented 3 no major events reported by nursing staff 08/26: Patient continued to be hemodynamic a stable overnight no major events reported by nursing staff patient currently denying chest pain shortness breath nausea vomiting abdominal pain dizziness lightheadedness or blurry vision. Her daughter and her granddaughter at the bedside have multiple concerns and questions all addressed at the bedside 08/27: Patient has been evaluated by Dr. Paz and patient does not qualify for tolerance of inpatient therapies. Patient is being evaluated for placement at nursing homes for subacute rehab. Family is unable to care for her at home. Social work and case management following closely. Anticipate possible discharge later today. 08/28: Patient is scheduled for discharge today. Plan is that she will be staying with a friend with home care in place. A hospital bed was ordered. No new concerns. Patient will be discharged today in stable condition. Her blood sugars have been low for which she has been instructed to hold Prandin until blood sugars are greater than 160 consistently. Objective - Vital Signs Vital signs: Vital Signs Temp 97.8 F 08/28/17 07:56 Pulse 88 08/28/17 08:00 Resp 14 08/28/17 08:00 BP 142/65 08/28/17 07:56 Pulse Ox 98 08/28/17 07:56 Intake & Output 08/27/17 08/28/17 08/28/17 18:59 06:59 18:59 Intake Total 200 500 Balance 200 500 Weight 77.5 kg 58 kg Intake: Oral 200 500 Other: Voiding Method Bedpan Bedpan Bedpan # Voids 3 1 - Exam General appearance: average body habitus, no acute distress - EENT Eyes: anicteric sclerae, EOMI, PERRLA, no ptosis, no scleral icterus, normal appearance ENT: hearing grossly normal, NA/AT, normal oropharynx, no thrush, no tonsillar exudates Ears: bilateral: normal - Neck Neck: no lymphadenopathy, normal ROM, no rigidity, no stridor, no thyromegaly Carotids: bilateral: upstroke normal Thyroid: bilateral: normal size - Respiratory Respiratory: bilateral: diminished, negative: dullness, rales, rhonchi, wheezing , prolonged expiration, prolonged inspiration - Cardiovascular Rhythm: regular Heart sounds: normal: S1, S2 Abnormal Heart Sounds: systolic murmur, no S3 Gallop, no S4 Gallop, no click - Gastrointestinal General gastrointestinal: normal bowel sounds, no scaphoid, soft, no splenomegaly, no tenderness, no umbilical hernia, no ventral hernia - Integumentary Integumentary: normal, normal turgor - Neurologic Neurologic: CNII-XII intact - Musculoskeletal Musculoskeletal: strength equal bilaterally - Psychiatric Psychiatric: A&O x's 3, appropriate affect, intact judgment & insight - Labs CBC & Chem 7: 08/24/17 08:06 08/24/17 08:06 Labs: Abnormal Lab Results - Last 24 Hours (Table) 08/27/17 08/27/17 08/27/17 Range/Units 11:41 17:29 20:59 POC Glucose (mg/dL) 229 H 232 H 224 H (75-99) mg/dL 08/28/17 08/28/17 Range/Units 07:31 07:57 POC Glucose (mg/dL) 66 L 72 L (75-99) mg/dL Microbiology - Last 24 Hours (Table) 08/26/17 07:40 Urine Culture - Final Urine,Voided Serratia marcescens Assessment and Plan Plan: 1. Right nondisplaced distal femur fracture and proximal tibia and fibula fracture. Continue current pain management with Dilaudid 0.5 mg IV push every 4 hours as well as [place] 10/325 mg 1 tablet 4 hours as needed, patient is already on morphine sulfate twice every day. Continue immobilizer, physical therapy the lesion, continue other management as per orthopedic service. 2. Chronic diastolic heart failure. Continue Coreg 25 mg orally twice every day, Lasix 40 mg orally once every day. 2. Diabetic gastroparesis . On Reglan 10 mg 3 times daily. 3. Chronic iron deficiency anemia with drop in hemoglobin. Monitor for blood loss anemia.. Continue iron 325 mg orally twice every day, vitamin B12. Patient is on Procrit type injections through Dr. Guido with improvement of hemoglobin. 4. Acute kidney injury (present on admission) with stage III chronic kidney disease. Monitor chemistries, avoid nephrotoxic agents. Continue sodium bicarb 650 mg daily. Prandin and Lasix will be discontinued. IV fluids at 50 mL per hour for 1 L. Recheck labs in the morning. 5. Rheumatoid arthritis. Stable at this time. She is on prednisone 10 mg daily 6. Chronic pain syndrome. Patient has been on MS Contin 15 mg twice a day along with [place] 10/325 g every 4 hours as needed. 7. Hypothyroidism. Continue Cytomel 5 mcg orally daily. 8. Diabetes mellitus type 2. Continue Levemir only. 9. CAD. stable. Continue with Coreg 25 mg orally twice every day, Imdur 30 mg orally once every day, Lipitor 20 mg orally once every day. 10. Hypertension and hypertensive cardiovascular disease. Continue coreg 25 mg orally twice daily, hydralazine 25 mg 3 times daily. Amlodipine discontinued by cardiology. 11. Hyperlipidemia. continue Lipitor 20 mg orally once every day. 12. Chronic neuropathy: Mostly idiopathic peripheral neuropathy and diabetic neuropathy as well to continue Neurontin 100 mg 3 times a day. 13. GI prophylaxis. Continue home Protonix 40 milligrams orally once every day. 14. DVT prophylaxis. Heparin 5000 units SC Q 8 h. 15. Asymptomatic bacteriuria. 15. CODE STATUS: Full code. Discharge plan: To be determined Impression and plan of care have been directed as dictated by the signing physician. Nadja Kaur nurse practitioner acting as scribe for signing physician.
== END 2017-08-28 20:20 | disposition home health service (06) | DRG 563 ==
LOC: EC 06:23 → 4MS4W 09:41 → 5MS5E 10:00
PROVIDERS: ADMIT Orthopaedic Surgery; ATTEND Orthopaedic Surgery
DX: S82.831A Other fracture of upper and lower end of right fibula, initial encounter for closed fracture (principal); N17.9 Acute kidney failure, unspecified; E11.22 Type 2 diabetes mellitus with diabetic chronic kidney disease; K31.84 Gastroparesis; I50.32 Chronic diastolic (congestive) heart failure; I13.0 Hypertensive heart and chronic kidney disease with heart failure and stage 1 through stage 4 chronic kidney disease, or unspecified chronic kidney disease; M97.11XA Periprosthetic fracture around internal prosthetic right knee joint, initial encounter; E11.43 Type 2 diabetes mellitus with diabetic autonomic (poly)neuropathy; N18.3 Chronic kidney disease, stage 3 (moderate); S82.101A Unspecified fracture of upper end of right tibia, initial encounter for closed fracture; W19.XXXA Unspecified fall, initial encounter; M06.9 Rheumatoid arthritis, unspecified; M85.80 Other specified disorders of bone density and structure, unspecified site; Y92.009 Unspecified place in unspecified non-institutional (private) residence as the place of occurrence of the external cause; Z79.4 Long term (current) use of insulin; K21.9 Gastro-esophageal reflux disease without esophagitis; I25.2 Old myocardial infarction; D50.9 Iron deficiency anemia, unspecified; E03.9 Hypothyroidism, unspecified; E78.5 Hyperlipidemia, unspecified; G60.9 Hereditary and idiopathic neuropathy, unspecified; G89.4 Chronic pain syndrome; I25.10 Atherosclerotic heart disease of native coronary artery without angina pectoris; Z79.52 Long term (current) use of systemic steroids; Z79.899 Other long term (current) drug therapy; Z80.41 Family history of malignant neoplasm of ovary; Z80.6 Family history of leukemia; Z80.8 Family history of malignant neoplasm of other organs or systems; Z82.49 Family history of ischemic heart disease and other diseases of the circulatory system; Z83.3 Family history of diabetes mellitus; Z87.442 Personal history of urinary calculi; Z79.891 Long term (current) use of opiate analgesic; Z79.51 Long term (current) use of inhaled steroids; Z79.84 Long term (current) use of oral hypoglycemic drugs; Z88.5 Allergy status to narcotic agent; Z88.2 Allergy status to sulfonamides
CPT/HCPCS: 72170; 80053; 81001; 83036; 85027; 87077; 87086; 87186; 94760; 96374; 96375; 96376; 99285

== ENCOUNTER 2017-08-31 11:17 | Inpatient (IN) | payer MEDICARE, BC ==
[2017-08-31] MEDS ORDERED: HYDROmorphone 0.5 MG/0.5 ML SYRINGE IVP STA ×2 (12:30→13:53)
[2017-08-31] MEDS ORDERED: SODIUM CHLORIDE 0.9% 500 ML IV STA (12:30)
--- NOTE | 2017-08-31 12:33 | ED ---
General Adult HPI - General Source: patient, EMS, RN notes reviewed Mode of arrival: EMS Limitations: no limitations <Loli Watters - Last Filed: 08/31/17 15:42> <Yung Figueredo - Last Filed: 08/31/17 15:46> - General Chief complaint: Skin/Abscess/Foreign Body Stated complaint: Infection, pressure ulcers Time Seen by Provider: 08/31/17 12:17 - History of Present Illness Initial comments: 67-year-old female presents for continued right lower extremity pain and ulcers following discharge. Patient was seen here after a fall and found have a tib- fib fracture possible femur fracture. The patient was placed in a knee immobilizer and [facility] along with home nurse. The home nurse came to visit her today they're concerned due to her worsening bedsores and worsening right leg pain. Patient has been nonmobile since she was discharged. Patient states she's having increased pain and she is having increased worse. She denies any fever chills nausea or vomiting. She states she is not scheduled to follow-up with orthopedics for 4 weeks. They were concerned due to the patient's continued pain and the bedsores so she thought that she should be evaluated. Patient denies any recent fever, chills, shortness of breath, chest pain, back pain, abdominal pain, nausea vomiting, numbness or tingling, dysuria or hematuria, constipation or diarrhea, headaches or visual changes, or any other current symptoms. (Loli Watters) - Related Data Home Medications Medication Instructions Recorded Confirmed Omeprazole [PriLOSEC] 20 mg PO BID 02/20/14 08/31/17 Cyanocobalamin [Vitamin B-12] 1,000 mcg PO DAILY 08/19/14 08/31/17 Liothyronine Sodium [Cytomel] 5 mcg PO DAILY 01/07/15 08/31/17 ALPRAZolam [Xanax] 0.25 mg PO BID PRN 09/02/16 08/31/17 Gabapentin [Neurontin] 100 mg PO TID 09/02/16 08/31/17 Morphine Sulfate ER [Ms Contin] 15 mg PO BID 09/02/16 08/31/17 HYDROcodone/APAP 10-325MG [[place] 1 tab PO Q4HR PRN 09/25/16 08/31/17 10-325] Isosorbide Mononitrate ER [Imdur] 30 mg PO QAM 01/17/17 08/31/17 Sodium Bicarbonate Tab 650 mg PO DAILY 03/28/17 08/31/17 Carvedilol 25 mg PO BID 05/03/17 08/31/17 Magnesium Oxide [Mag-Ox] 250 mg PO HS 05/03/17 08/31/17 Simvastatin 40 mg PO HS 05/03/17 08/31/17 Furosemide [Lasix] 40 mg PO DAILY 08/12/17 08/31/17 Previous Rx's Medication Instructions Recorded Ondansetron Odt [Zofran ODT] 4 mg PO Q8HR PRN #15 tab 01/04/15 Levothyroxine Sodium [Synthroid] 25 mcg PO DAILY@0630 tab 01/12/15 Nitroglycerin Sl Tabs [Nitrostat] 0.4 mg SUBLINGUAL Q5M PRN #25 tab 12/09/16 Ferrous Sulfate [Iron (65 MG 325 mg PO BID #0 06/03/17 Elemental)] predniSONE 10 mg PO DAILY tab 06/03/17 Metoclopramide [Reglan] 10 mg PO AC-TID #90 tab 06/11/17 Linagliptin [Tradjenta] 5 mg PO DAILY tablet 08/15/17 Yjegosvy-Mjwyzfuwr-Tasxyowi 1 drops RIGHT EYE Q4HR bottle 08/15/17 [Maxitrol Ophth Susp] hydrALAZINE HCL [Apresoline] 25 mg PO TID #90 tab 08/15/17 Insulin Glargine,Hum.rec.anlog 8 units SQ DAILY #0 08/28/17 [Tounicholaso Solostar] Allergies Allergy/AdvReac Type Severity Reaction Status Date / Time codeine Allergy Rash/Hives Verified 08/31/17 12:00 Sulfa (Sulfonamide Allergy Rash/Hives Verified 08/31/17 12:00 Antibiotics) gold Allergy Unknown Uncoded 08/31/17 11:24 Review of Systems ROS Other: All systems not noted in ROS Statement are negative. <Loli Watters - Last Filed: 08/31/17 15:42> ROS Other: All systems not noted in ROS Statement are negative. <Yung Figueredo - Last Filed: 08/31/17 15:46> ROS Statement: Those systems with pertinent positive or pertinent negative responses have been documented in the HPI. Past Medical History Past Medical History: Coronary Artery Disease (CAD), Heart Failure, Diabetes Mellitus, GERD/Reflux, Hyperlipidemia, Hypertension, Myocardial Infarction ([place]) , Pneumonia, Renal Disease, Rheumatoid Arthritis (RA), Thyroid Disorder Additional Past Medical History / Comment(s): Pt recently admitted to [facility] with lower extremity edema r/t amlodipine. Other HX: Past low vitamin d levels which caused renal deficiency (CKD stage III), per pt, kidney stones, UTIs, parathyroid overactive related to low vit d levels per pt, pt states her vitamin D supplement has been discontinued-levels are now normal, chronic prednisone secondary to RA followed by Dr. Marlow, chronic CHF, NIDDM type II, chronic peripheral neuropathies hands and feet, chronic low back pain, chronic ANEMIA, hypothyroid, overactive parathyroid, COMPRESSION FX L1, PAST FALLS. Last Myocardial Infarction Date:: 11/2016 History of Any Multi-Drug Resistant Organisms: C-DIFF Date of last positivie culture/infection: 2014 MDRO Source:: C-DIFF Past Surgical History: Back Surgery, Section, Cholecystectomy, Heart Catheterization, Joint Replacement, Orthopedic Surgery, Tubal Ligation Additional Past Surgical History / Comment(s): Right TKA in 2005 by Johnnie Diaz carpel tunnel release, CYST REMOVED (NECK) AGE 6, 2 back surgery 2004, EGD/ colonoscopy. Past Anesthesia/Blood Transfusion Reactions: No Reported Reaction Additional Past Anesthesia/Blood Transfusion Reaction / Comment(s): Blood pressure is labile at times with surgery. Past Psychological History: Anxiety Smoking Status: Never smoker Past Alcohol Use History: None Reported Past Drug Use History: None Reported - Past Family History Sister(s) Family Medical History: Cancer, Diabetes Mellitus Additional Family Medical History / Comment(s): 11 siblings, 6 left. One sister had leukemia and another had ovarian cancer. Mother Family Medical History: Cancer, Diabetes Mellitus Additional Family Medical History / Comment(s): Addisons disease, reproductive cancer. Father Family Medical History: Cancer, Hypertension Additional Family Medical History / Comment(s): Father had throat cancer. He was a smoker. He also had anxiety. <Loli Watters - Last Filed: 08/31/17 15:42> General Exam Limitations: no limitations General appearance: alert, in no apparent distress Eye exam: Present: normal appearance, PERRL, EOMI. Absent: scleral icterus, conjunctival injection, periorbital swelling ENT exam: Present: normal exam, mucous membranes moist Neck exam: Present: normal inspection. Absent: tenderness, meningismus, lymphadenopathy Respiratory exam: Present: normal lung sounds bilaterally. Absent: respiratory distress, wheezes, rales, rhonchi, stridor Cardiovascular Exam: Present: regular rate, normal rhythm, normal heart sounds. Absent: systolic murmur, diastolic murmur, rubs, gallop, clicks Extremities exam: Present: tenderness (To the extensive right lower extremity to the knee of the left lower extremity), normal capillary refill. Absent: normal inspection (Patient has multiple sores one to the left lower extremity and multiple on the fact the right lower extremity with drainage noted.), full ROM (Limited in bilateral lower extremities due to pain), pedal edema, joint swelling, calf tenderness Neurological exam: Present: alert, oriented X3 Psychiatric exam: Present: normal affect, normal mood Skin exam: Present: warm, dry, intact, normal color. Absent: rash <Loli Watters - Last Filed: 08/31/17 15:42> Vital Signs 08/31/17 08/31/17 08/31/17 11:24 14:18 15:42 Temperature 98.3 F 98.3 F Pulse Rate 98 98 94 Respiratory 18 18 18 Rate Blood Pressure 148/67 130/59 139/62 O2 Sat by Pulse 91 L 90 L 91 L Oximetry Medical Decision Making - Lab Data Result diagrams: 08/31/17 12:51 08/31/17 12:51 <Loli Watters - Last Filed: 08/31/17 15:42> - Lab Data Result diagrams: 08/31/17 12:51 08/31/17 12:51 <Yung Figueredo - Last Filed: 08/31/17 15:46> - Medical Decision Making 67-year-old female presents with a chief complaint of increased pain and sores. At this time patient does appear to be having a localized infection around a sore to the left lower x-ray. This time Unasyn was started. Patient due to her elevated white blood cell come. Patient also does appear to have some dehydration. She does appear to have some sores to the right x-ray that she currently is tib-fib fracture as well as and is found to be hypoxic x-ray is negative. At this time we will admit the patient for continued care. This was discussed with Dr. Cruz by Dr. Figueredo who does agree to the admission. (Loli Watters) Medical decision making; I had a [id number] with the patient has reviewing her old chart current labs and current situation as well as discussing her circumstances with her daughter at bedside. I called and spoke with on-call physician Dr. cruz .Dr. Figueredo (Yung Figueredo) - Lab Data Lab Results 08/31/17 08/31/17 08/31/17 Range/Units 12:51 12:51 12:51 WBC 12.9 H (3.8-10.6) k/uL RBC 2.47 L (3.80-5.40) m/uL Hgb 8.0 L (11.4-16.0) gm/dL Hct 25.4 L (34.0-46.0) % MCV 103.0 H (80.0-100.0) fL MCH 32.3 (25.0-35.0) pg MCHC 31.3 (31.0-37.0) g/dL RDW 15.1 (11.5-15.5) % Plt Count 235 D (150-450) k/uL Neutrophils % 92 % Lymphocytes % 4 % Monocytes % 3 % Eosinophils % 1 % Basophils % 0 % Neutrophils # 11.9 H (1.3-7.7) k/uL Lymphocytes # 0.5 L (1.0-4.8) k/uL Monocytes # 0.4 (0-1.0) k/uL Eosinophils # 0.1 (0-0.7) k/uL Basophils # 0.0 (0-0.2) k/uL Hypochromasia Marked Macrocytosis Slight PT 9.8 (9.0-12.0) sec INR 1.0 (<1.2) APTT 21.9 L (22.0-30.0) sec Sodium 142 (137-145) mmol/L Potassium 5.4 H (3.5-5.1) mmol/L Chloride 107 (98-107) mmol/L Carbon Dioxide 27 (22-30) mmol/L Anion Gap 8 mmol/L BUN 86 H* (7-17) mg/dL Creatinine 1.60 H (0.52-1.04) mg/dL Est GFR (MDRD) Af Amer 39 (>60 ml/min/1.73 sqM) Est GFR (MDRD) Non-Af 32 (>60 ml/min/1.73 sqM) Glucose 146 H (74-99) mg/dL Plasma Lactic Acid Ricci (0.7-2.0) mmol/L Calcium 8.6 (8.4-10.2) mg/dL Total Bilirubin 0.8 (0.2-1.3) mg/dL AST 15 (14-36) U/L ALT 22 (9-52) U/L Alkaline Phosphatase 145 H (38-126) U/L Total Protein 4.8 L (6.3-8.2) g/dL Albumin 2.3 L (3.5-5.0) g/dL 08/31/17 Range/Units 12:51 WBC (3.8-10.6) k/uL RBC (3.80-5.40) m/uL Hgb (11.4-16.0) gm/dL Hct (34.0-46.0) % MCV (80.0-100.0) fL MCH (25.0-35.0) pg MCHC (31.0-37.0) g/dL RDW (11.5-15.5) % Plt Count (150-450) k/uL Neutrophils % % Lymphocytes % % Monocytes % % Eosinophils % % Basophils % % Neutrophils # (1.3-7.7) k/uL Lymphocytes # (1.0-4.8) k/uL Monocytes # (0-1.0) k/uL Eosinophils # (0-0.7) k/uL Basophils # (0-0.2) k/uL Hypochromasia Macrocytosis PT (9.0-12.0) sec INR (<1.2) APTT (22.0-30.0) sec Sodium (137-145) mmol/L Potassium (3.5-5.1) mmol/L Chloride (98-107) mmol/L Carbon Dioxide (22-30) mmol/L Anion Gap mmol/L BUN (7-17) mg/dL Creatinine (0.52-1.04) mg/dL Est GFR (MDRD) Af Amer (>60 ml/min/1.73 sqM) Est GFR (MDRD) Non-Af (>60 ml/min/1.73 sqM) Glucose (74-99) mg/dL Plasma Lactic Acid Ricci 0.9 (0.7-2.0) mmol/L Calcium (8.4-10.2) mg/dL Total Bilirubin (0.2-1.3) mg/dL AST (14-36) U/L ALT (9-52) U/L Alkaline Phosphatase (38-126) U/L Total Protein (6.3-8.2) g/dL Albumin (3.5-5.0) g/dL Disposition Decision Date: 08/31/17 Decision Time: 15:45 <Loli Watters - Last Filed: 08/31/17 15:42> <Yung Figueredo - Last Filed: 08/31/17 15:46> Clinical Impression: Acute renal failure, Anemia, Dehydration, Hyperkalemia, Diabetes, HTN ( hypertension), Hypoxia, Cellulitis of right lower extremity Disposition: ADMITTED IP TO THIS [facility] Condition: Stable Referrals: Fay Lerner MD [Primary Care Provider] - 1-2 days
--- NOTE | 2017-08-31 13:18 | XR ---
EXAMINATION TYPE: XR chest 2V DATE OF EXAM: 08/31/2017 COMPARISON: 08/12/2017 HISTORY: Shortness of breath with history of kidney failure, rheumatoid arthritis and congestive hear t failure. TECHNIQUE: Frontal and lateral views of the chest are obtained. FINDINGS: There is no focal air space opacity, pleural effusion, or pneumothorax seen. Linear plate like subsegmental atelectasis is seen at the left lung base. The cardiac silhouette size is enlarged. The osseous structures are intact. Cholecystectomy clips are noted within the right upper quadrant . IMPRESSION: No acute cardiopulmonary process other than minimal left basilar subsegmental atelectasi s..
[2017-08-31 13:21] LABS: Basophils % (A) 0 %; Eosinophils # (A) 0.1 k/uL (0-0.7); Eosinophils % (A) 1 %; HCT 25.4 % (34.0-46.0); Hypochromasia Marked; Lymphocytes # (A) 0.5 k/uL (1.0-4.8); Lymphocytes % (A) 4 %; MCH 32.3 pg (25.0-35.0); MCHC 31.3 g/dL (31.0-37.0); Macrocytosis Slight; Mean Platelet Volume 7.8; Monocytes # (A) 0.4 k/uL (0-1.0); Monocytes % (A) 3 %; Neutrophils # (A) 11.9 k/uL (1.3-7.7); Neutrophils % (A) 92 %; RBC 2.47 m/uL (3.80-5.40); RDW 15.1 % (11.5-15.5); WBC 12.9 k/uL (3.8-10.6)
[2017-08-31 13:29] LABS: Platelet Count 235 k/uL (150-450)
[2017-08-31 13:32] LABS: Partial Thromboplastin Time 21.9 sec (22.0-30.0); Prothrombin Time 9.8 sec (9.0-12.0)
[2017-08-31 13:37] LABS: Albumin 2.3 g/dL (3.5-5.0); Calcium 8.6 mg/dL (8.4-10.2); Potassium 5.4 mmol/L (3.5-5.1); Total Bilirubin 0.8 mg/dL (0.2-1.3); Total Protein 4.8 g/dL (6.3-8.2)
[2017-08-31] MEDS ORDERED: AMPICILLIN-SULBACTAM 3 GM in SODIUM CHLORIDE 0.9% 100 ML IVPB STA (13:53)
[2017-08-31] MEDS ORDERED: SODIUM CHLORIDE 0.9% 1,000 ML IV STA (15:07)
[2017-08-31] MEDS ORDERED: HYDROmorphone 0.5 MG/0.5 ML SYRINGE IVP PRN (15:37)
[2017-08-31] MEDS ORDERED: NALOXONE 0.4 MG/ML 1 ML VIAL IV PRN (15:37)
[2017-08-31] MEDS: HYDROmorphone 0.5 MG/0.5 ML SYRINGE IVP PRN ×3 (17:41→23:32)
[2017-08-31] MEDS: SODIUM CHLORIDE 0.9% 1,000 ML IV SCH (19:12)
[2017-08-31 19:18] LABS: Appearance,Urine Cloudy (Clear); Bacteria,Urine Many /hpf; Bilirubin,Urine Negative (Negative); Blood,Urine Negative (Negative); Color,Urine Yellow; Glucose,Urine (UA) Negative (Negative); Ketones,Urine Negative (Negative); Leukocyte Esterase,Urine Large (Negative); Mucus,Urine Occasional /hpf; Nitrite,Urine Negative (Negative); Protein,Urine Negative (Negative); RBC,Urine 3 /hpf (0-5); Squamous Epithelial Cell,Urine 14 /hpf (0-4); Urobilinogen,Urine <2.0 mg/dL (<2.0); WBC,Urine 120 /hpf (0-5)
[2017-08-31] MEDS: AMPICILLIN-SULBACTAM 3 GM in SODIUM CHLORIDE 0.9% 100 ML IVPB SCH (20:07)
[2017-08-31] MEDS: CARVEDILOL 12.5 MG TAB PO SCH (20:08)
[2017-08-31 20:46] LABS: Glucose,Whole Blood 131 mg/dL (75-99)
[2017-08-31] MEDS: INSULIN ASPART 100 UNIT/ML 1 ML 10 ML VIAL SQ SCH (23:30)
[2017-08-31] MEDS: hydrALAZINE HCL 25 MG TAB PO SCH (23:31)
[2017-08-31] MEDS: GABAPENTIN 100 MG CAP PO SCH (23:31)
[2017-09-01] MEDS: HYDROmorphone 0.5 MG/0.5 ML SYRINGE IVP PRN ×5 (02:51→18:26)
[2017-09-01] MEDS: AMPICILLIN-SULBACTAM 3 GM in SODIUM CHLORIDE 0.9% 100 ML IVPB SCH ×4 (02:51→21:12)
[2017-09-01] MEDS: SODIUM CHLORIDE 0.9% 1,000 ML IV SCH ×3 (03:00→21:55)
[2017-09-01 03:15] LABS: Glucose,Whole Blood 112 mg/dL (75-99)
[2017-09-01] MEDS: LEVOTHYROXINE 25 MCG TAB PO SCH (06:00)
[2017-09-01 07:32] LABS: Glucose,Whole Blood 121 mg/dL (75-99)
[2017-09-01 07:57] LABS: Basophils % (A) 0 %; Eosinophils # (A) 0.1 k/uL (0-0.7); Eosinophils % (A) 2 %; HCT 24.5 % (34.0-46.0); HGB 7.1 gm/dL (11.4-16.0); Hypochromasia Marked; Lymphocytes # (A) 0.8 k/uL (1.0-4.8); Lymphocytes % (A) 9 %; MCH 30.4 pg (25.0-35.0); MCHC 29.1 g/dL (31.0-37.0); MCV 104.4 fL (80.0-100.0); Macrocytosis Moderate; Mean Platelet Volume 8.1; Monocytes # (A) 0.4 k/uL (0-1.0); Monocytes % (A) 5 %; Neutrophils # (A) 7.5 k/uL (1.3-7.7); Neutrophils % (A) 83 %; Platelet Count 193 k/uL (150-450); RBC 2.35 m/uL (3.80-5.40); RDW 15.1 % (11.5-15.5)
[2017-09-01 08:31] LABS: Albumin 1.9 g/dL (3.5-5.0); Potassium 4.6 mmol/L (3.5-5.1); Total Bilirubin 0.5 mg/dL (0.2-1.3); Total Protein 4.4 g/dL (6.3-8.2)
[2017-09-01] MEDS: LINAGLIPTIN 5 MG TABLET PO SCH (09:00)
[2017-09-01] MEDS: hydrALAZINE HCL 25 MG TAB PO SCH ×3 (09:01→21:25)
[2017-09-01] MEDS: INSULIN ASPART 100 UNIT/ML 1 ML 10 ML VIAL SQ SCH ×4 (09:01→21:30)
[2017-09-01] MEDS: CARVEDILOL 12.5 MG TAB PO SCH ×2 (09:01→17:49)
[2017-09-01] MEDS: FUROSEMIDE 40 MG TAB PO SCH (09:01)
[2017-09-01] MEDS: GABAPENTIN 100 MG CAP PO SCH ×3 (09:01→21:25)
[2017-09-01] MEDS: ONDANSETRON 4 MG/2 ML VIAL IVP PRN (10:03)
--- NOTE | 2017-09-01 10:49 | P.CNOR ---
History of Present Illness - HPI Consult date: 09/01/17 History of present illness: This is a 67-year-old female who we're following regarding her right periprosthetic proximal tibia and proximal fibular fractures. She was placed in a knee immobilizer during her last visit 10 days ago. She has since developed multiple areas of skin breakdown in the knee immobilizer. She was admitted for possible synovitis to the lower extremity. We're consulted for orthopedic evaluation. Past Medical History Past Medical History: Coronary Artery Disease (CAD), Heart Failure, Diabetes Mellitus, GERD/Reflux, Hyperlipidemia, Hypertension, Myocardial Infarction ([place]) , Pneumonia, Renal Disease, Rheumatoid Arthritis (RA), Thyroid Disorder Additional Past Medical History / Comment(s): 08/21/17 fall,fx rt tib/fib wears immobilizer.no wt bearing. bedsores/leg 08/12/17 with lower extremity edema r/t amlodipine. Other HX: Past low vitamin d levels which caused renal deficiency (CKD stage III), per pt, kidney stones, UTIs, parathyroid overactive related to low vit d levels per pt, pt states her vitamin D supplement has been discontinued-levels are now normal, chronic prednisone secondary to RA followed by Dr. Marlow, chronic CHF, NIDDM type II, chronic peripheral neuropathies hands and feet, chronic low back pain, chronic ANEMIA, hypothyroid, overactive parathyroid, COMPRESSION FX L1, PAST FALLS. Last Myocardial Infarction Date:: 11/2016 History of Any Multi-Drug Resistant Organisms: C-DIFF Year Discovered:: 2014 MDRO Source:: C-DIFF Past Surgical History: Back Surgery, Section, Cholecystectomy, Heart Catheterization, Joint Replacement, Orthopedic Surgery, Tubal Ligation Additional Past Surgical History / Comment(s): Right TKA in 2005 by Johnnie Diaz carpel tunnel release, CYST REMOVED (NECK) AGE 6, 2 back surgery 2004, EGD/ colonoscopy. Past Anesthesia/Blood Transfusion Reactions: No Reported Reaction Additional Past Anesthesia/Blood Transfusion Reaction / Comm: Blood pressure is labile at times with surgery. past blood transfusion-no reaction Smoking Status: Never smoker - Past Family History Sister(s) Family Medical History: Cancer, Diabetes Mellitus Additional Family Medical History / Comment(s): 11 siblings, 6 left. One sister had leukemia and another had ovarian cancer. Mother Family Medical History: Cancer, Diabetes Mellitus Additional Family Medical History / Comment(s): Addisons disease, reproductive cancer. Father Family Medical History: Cancer, Hypertension Additional Family Medical History / Comment(s): Father had throat cancer. He was a smoker. He also had anxiety. Medications and Allergies Home Medications Medication Instructions Recorded Confirmed Type Omeprazole [PriLOSEC] 20 mg PO BID 02/20/14 08/31/17 History Cyanocobalamin [Vitamin B-12] 1,000 mcg PO DAILY 08/19/14 08/31/17 History Ondansetron Odt [Zofran ODT] 4 mg PO Q8HR PRN #15 tab 01/04/15 08/31/17 Rx Liothyronine Sodium [Cytomel] 5 mcg PO DAILY 01/07/15 08/31/17 History Levothyroxine Sodium [Synthroid] 25 mcg PO DAILY@0630 tab 01/12/15 08/31/17 Rx ALPRAZolam [Xanax] 0.25 mg PO BID PRN 09/02/16 08/31/17 History Gabapentin [Neurontin] 100 mg PO TID 09/02/16 08/31/17 History Morphine Sulfate ER [Ms Contin] 15 mg PO BID 09/02/16 08/31/17 History HYDROcodone/APAP 10-325MG [[place] 1 tab PO Q4HR PRN 09/25/16 08/31/17 History 10-325] Nitroglycerin Sl Tabs [Nitrostat] 0.4 mg SUBLINGUAL Q5M PRN #25 tab 12/09/16 Rx Isosorbide Mononitrate ER [Imdur] 30 mg PO QAM 01/17/17 08/31/17 History Sodium Bicarbonate Tab 650 mg PO DAILY 03/28/17 08/31/17 History Carvedilol 25 mg PO BID 05/03/17 08/31/17 History Magnesium Oxide [Mag-Ox] 250 mg PO HS 05/03/17 08/31/17 History Simvastatin 40 mg PO HS 05/03/17 08/31/17 History Ferrous Sulfate [Iron (65 MG 325 mg PO BID #0 06/03/17 08/31/17 Rx Elemental)] predniSONE 10 mg PO DAILY tab 06/03/17 08/31/17 Rx Metoclopramide [Reglan] 10 mg PO AC-TID #90 tab 06/11/17 08/31/17 Rx Furosemide [Lasix] 40 mg PO DAILY 08/12/17 08/31/17 History Linagliptin [Tradjenta] 5 mg PO DAILY tablet 08/15/17 08/31/17 Rx Ynyluebs-Suktweghf-Hiwqrxgk 1 drops RIGHT EYE Q4HR bottle 08/15/17 08/31/17 Rx [Maxitrol Ophth Susp] hydrALAZINE HCL [Apresoline] 25 mg PO TID #90 tab 08/15/17 08/31/17 Rx Insulin Glargine,Hum.rec.anlog 8 units SQ DAILY #0 08/28/17 08/31/17 Rx [Toujeo Solostar] Allergies Allergy/AdvReac Type Severity Reaction Status Date / Time codeine Allergy Rash/Hives Verified 08/31/17 12:00 Sulfa (Sulfonamide Allergy Rash/Hives Verified 08/31/17 12:00 Antibiotics) gold Allergy Unknown Uncoded 08/31/17 11:24 Physical Examination This is a pleasant 67-year-old female in no acute distress. She is alert and oriented 3. Exam of the right lower extremity reveals significant ecchymosis from the knee down to the foot and ankle. There are multiple areas of skin breakdown with weeping sores about the posterior lateral aspect of the lower leg and ankle. She has full foot and ankle motion without difficulty. Pedal pulses +1/4. The patient has chronic sensory deficit to the lower extremities. Results X-rays are reviewed from her prior visit which reveal total knee components in satisfactory position. There is a proximal fibula fracture noted. With nondisplaced proximal tibial periprosthetic fracture. - Labs Labs: Abnormal Lab Results - Last 24 Hours (Table) 08/31/17 08/31/17 08/31/17 Range/Units 12:51 12:51 12:51 WBC 12.9 H (3.8-10.6) k/uL RBC 2.47 L (3.80-5.40) m/uL Hgb 8.0 L (11.4-16.0) gm/dL Hct 25.4 L (34.0-46.0) % MCV 103.0 H (80.0-100.0) fL MCHC (31.0-37.0) g/dL Neutrophils # 11.9 H (1.3-7.7) k/uL Lymphocytes # 0.5 L (1.0-4.8) k/uL APTT 21.9 L (22.0-30.0) sec Potassium 5.4 H (3.5-5.1) mmol/L Chloride (98-107) mmol/L BUN 86 H* (7-17) mg/dL Creatinine 1.60 H (0.52-1.04) mg/dL Glucose 146 H (74-99) mg/dL POC Glucose (mg/dL) (75-99) mg/dL Calcium (8.4-10.2) mg/dL Alkaline Phosphatase 145 H (38-126) U/L Total Protein 4.8 L (6.3-8.2) g/dL Albumin 2.3 L (3.5-5.0) g/dL Urine Appearance (Clear) Ur Leukocyte Esterase (Negative) Urine WBC (0-5) /hpf Ur Squamous Epith Cells (0-4) /hpf Urine Bacteria (None) /hpf Urine Mucus (None) /hpf 08/31/17 08/31/17 09/01/17 Range/Units 19:00 20:40 03:13 WBC (3.8-10.6) k/uL RBC (3.80-5.40) m/uL Hgb (11.4-16.0) gm/dL Hct (34.0-46.0) % MCV (80.0-100.0) fL MCHC (31.0-37.0) g/dL Neutrophils # (1.3-7.7) k/uL Lymphocytes # (1.0-4.8) k/uL APTT (22.0-30.0) sec Potassium (3.5-5.1) mmol/L Chloride (98-107) mmol/L BUN (7-17) mg/dL Creatinine (0.52-1.04) mg/dL Glucose (74-99) mg/dL POC Glucose (mg/dL) 131 H 112 H (75-99) mg/dL Calcium (8.4-10.2) mg/dL Alkaline Phosphatase (38-126) U/L Total Protein (6.3-8.2) g/dL Albumin (3.5-5.0) g/dL Urine Appearance Cloudy H (Clear) Ur Leukocyte Esterase Large H (Negative) Urine WBC 120 H (0-5) /hpf Ur Squamous Epith Cells 14 H (0-4) /hpf Urine Bacteria Many H (None) /hpf Urine Mucus Occasional H (None) /hpf 09/01/17 09/01/17 09/01/17 Range/Units 07:12 07:12 07:28 WBC (3.8-10.6) k/uL RBC 2.35 L (3.80-5.40) m/uL Hgb 7.1 L (11.4-16.0) gm/dL Hct 24.5 L (34.0-46.0) % MCV 104.4 H (80.0-100.0) fL MCHC 29.1 L (31.0-37.0) g/dL Neutrophils # (1.3-7.7) k/uL Lymphocytes # 0.8 L (1.0-4.8) k/uL APTT (22.0-30.0) sec Potassium (3.5-5.1) mmol/L Chloride 112 H (98-107) mmol/L BUN 80 H* (7-17) mg/dL Creatinine 1.30 H (0.52-1.04) mg/dL Glucose 107 H (74-99) mg/dL POC Glucose (mg/dL) 121 H (75-99) mg/dL Calcium 8.0 L (8.4-10.2) mg/dL Alkaline Phosphatase 127 H (38-126) U/L Total Protein 4.4 L (6.3-8.2) g/dL Albumin 1.9 L (3.5-5.0) g/dL Urine Appearance (Clear) Ur Leukocyte Esterase (Negative) Urine WBC (0-5) /hpf Ur Squamous Epith Cells (0-4) /hpf Urine Bacteria (None) /hpf Urine Mucus (None) /hpf Microbiology - Last 24 Hours (Table) 08/31/17 13:15 Gram Stain - Preliminary Leg - Left Wound Culture - Preliminary Presumptive MRSA Gram Neg Bacilli 08/31/17 19:00 Urine Culture - Preliminary Urine,Clean Catch H & H 08/31/17 09/01/17 Range/Units 12:51 07:12 Hgb 8.0 L 7.1 L (11.4-16.0) gm/dL Hct 25.4 L 24.5 L (34.0-46.0) % Coagulation 08/31/17 Range/Units 12:51 INR 1.0 (<1.2) Result Diagrams: 09/01/17 07:12 09/01/17 07:12 Assessment and Plan (1) Cellulitis of right lower extremity Current Visit: Yes Status: Acute Code(s): L03.115 - CELLULITIS OF RIGHT LOWER LIMB SNOMED Code(s): 132456108 (2) Fracture of proximal end of right tibia Current Visit: No Status: Acute Code(s): S82.101A - UNSP FRACTURE OF UPPER END OF RIGHT TIBIA, INIT FOR CLOS FX SNOMED Code(s): 26311855 (3) Periprosthetic fracture around internal prosthetic right knee joint Current Visit: No Status: Acute Code(s): M97.11XA - PERIPROSTH FRACTURE AROUND INTERNAL PROSTH R KNEE JT, INIT SNOMED Code(s): 693125896 Plan: The clinical findings are discussed with the patient and nursing staff. Since the patient is nonambulatory at this time, we will keep her out of the knee immobilizer and keep the leg on a padded pillow for comfort. Continue wound care to the lower leg. Continue IV antibiotics per medicine.
[2017-09-01 11:51] LABS: Glucose,Whole Blood 151 mg/dL (75-99)
[2017-09-01] MEDS ORDERED: VANCOMYCIN IV PER PHARMACY 1 EACH MISC MISCELLANE PRN (14:11)
[2017-09-01] MEDS ORDERED: VANCOMYCIN 1,750 MG in SODIUM CHLORIDE 0.9% 250 ML IVPB ONE (15:00)
[2017-09-01] MEDS ORDERED: ONDANSETRON ODT 4 MG TAB PO PRN (15:26)
[2017-09-01] MEDS ORDERED: NITROGLYCERIN SL TABS 0.4 MG TAB SUBLINGUAL PRN (15:26)
[2017-09-01] MEDS ORDERED: DARBEPOETIN ALFA 40 MCG/0.4 ML SYRINGE SQ SCH (16:00)
[2017-09-01 17:18] LABS: Glucose,Whole Blood 93 mg/dL (75-99)
[2017-09-01] MEDS: LIOTHYRONINE SODIUM 5 MCG TAB PO SCH (17:49)
[2017-09-01] MEDS: METOCLOPRAMIDE 10 MG TAB PO SCH (17:49)
--- NOTE | 2017-09-01 17:54 | P.HPIM ---
History of Present Illness H&P Date: 09/01/17 Chief Complaint: Cellulitis and weeping leg bilateral This is a 67-year-old female one of my clinic patient's with past medical history of rheumatoid arthritis on prednisone hyperlipidemia, chronic anemia, CKD [address] Cowan, chronic pain syndrome, hypothyroidism , history of coronary artery disease that is post 2 MIs, chronic diastolic heart failure, hypertension, diabetes mellitus type 2, diabetic neuropathy, diabetic gastroparesis, lower back pain with compression fracture L1, chronic anemia and follows with Dr. Guido, recently admitted from a facility on August 22 to 08/28/2017 found to have a distal femur fracture with nondisplaced proximal fibula and tibia fracture, she was placed in immobilizer she was admitted under orthopedic service she did not qualify for inpatient or subacute rehabilitation, and family is unable to care for her at home, she is physically disabled requiring mainly a power chair and pivoting limited walker assist at home, prior to the right patella new fracture. She is now on a knee mobilizer, with strict nonweightbearing to the right leg and was discharged to an [facility] home which was owned by a family member ,brother. Patient has a hospital bed and home care. Home care nurse came in to evaluate her today, and was concerned about developing cellulitis in the left leg and the right leg, she also is concerned about weeping edema, patient denies any fever however she has chills, weeping edema in the lower legs, and she is on weekly immunosuppressed with chronic prednisone for her rheumatoid arthritis. She is not on any disease modifying agents. She mentions that the left leg has a necrotic wound which started as a bruise on the calf when a nurse tried transferring now measuring approximately 2 cm x 1.5 cm black in collar slightly depressed with peripheral redness surrounding swelling. she has multiple ones in the bilateral posterior thigh, popliteal creases, gluteal creases, all of which are very uncomfortable some of the wounds are draining yellow-green mainly in the right leg During her last admission she has the following evaluation: CAT scan of the knee reveals marked osteopenia. Fractures of both medial and lateral distal femoral metadiaphysis with. Prosthetic extension to the for moral condylar components of the prosthesis. Minimal cortical offset is seen medially. Transverse to oblique fracture of the proximal tibial metadiaphysis. Fracture line may extend to the anterior medial tibial tray screw but otherwise shows no clear periprostatic extension. Subtle minimally offset fibular head/neck fracture. Small knee joint effusion, diffuse muscular atrophy and extensive vascular calcifications. Consult were made with Dr. Carbone, her preliminary cultures shows presumptive MRSA, and gram-negative bacilli, patient was started on vancomycin, and currently is on IV Unasyn. On her last admission she was treated for S marcescens UTI cultures on on 08/26/2017 Review of Systems Constitutional: Reports anorexia, Reports chronic pain, Reports fatigue, Reports lethargy, Reports malaise, Reports poor appetite, Denies as per HPI, Denies chills, Denies chronic headaches, Denies daytime sleepiness, Denies fever , Denies night sweats, Denies sweats, Denies weakness, Denies weight gain, Denies weight loss Ears, nose, mouth and throat: Reports as per HPI, Denies ant. neck pain, Denies bleeding gums, Denies dental pain, Denies dysphagia, Denies epistaxis, Denies headache, Denies hoarseness, Denies mouth pain, Denies nasal congestion, Denies nasal discharge, Denies neck fullness/pressure, Denies neck lump, Denies nose pain, Denies odynophagia, Denies post-nasal drip, Denies sinus pain, Denies sinus pressure, Denies swelling in mouth, Denies swelling in throat, Denies sore throat, Denies vertigo, Denies voice changes Cardiovascular: Reports as per HPI Respiratory: Reports as per HPI, Denies congestion, Denies cough, Denies cough with sputum, Denies dyspnea, Denies excessive sputum, Denies hemoptysis, Denies home oxygen, Denies pain, Denies pain on inspiration, Denies pleurisy, Denies respiratory infections, Denies sleep apnea, Denies snoring, Denies wheezing Gastrointestinal: Reports as per HPI Genitourinary: Reports as per HPI Menstruation: Reports as per HPI, Denies amenorrhea, Denies amenorrhea on BC, Denies currently menstrual, Denies cycle < 21 days, Denies cycle > 35 days, Denies cycle variable, Denies menses 1-7 days, Denies menses 8 or > days, Denies menses variable, Denies period heavy, Denies period light, Denies period normal, Denies period spotting, Denies post hysterectomy, Denies postmenopausal , Denies premenarcheal Musculoskeletal: Reports as per HPI Integumentary: Reports as per HPI, Denies acne, Denies boils, Denies brittle nails, Denies change in hair/nails, Denies color changes, Denies darkening of skin, Denies depigmentation, Denies dryness, Denies foot/leg ulcers, Denies growths, Denies hirsutism, Denies lesions, Denies onychomycosis, Denies pruritus , Denies rash, Denies sores, Denies striae, Denies unusual bruising, Denies wounds Neurological: Reports as per HPI, Reports motor disturbance Psychiatric: Reports as per HPI, Reports change in sleep habits, Reports difficulty concentrating Endocrine: Reports as per HPI, Denies cold intolerance, Denies deepening of the voice, Denies excessive sweating, Denies excessive thirst, Denies fatigue, Denies flushing, Denies heat intolerance, Denies high blood sugars, Denies increase in ring/shoe/hat size, Denies low blood sugars, Denies nocturia, Denies palpitations, Denies polydipsia, Denies polyphagia, Denies polyuria, Denies proptosis, Denies recent glucocorticoid use, Denies thyroid mass, Denies weight change Hematologic/Lymphatic: Reports as per HPI, Denies easy bleeding, Denies easy bruising, Denies lymphadenopathy, Denies lymphedema, Denies thrombophilia Allergic/Immunologic: Reports as per HPI, Denies allergic rhinitis, Denies anaphylaxis, Denies angioedema, Denies gluten intolerance, Denies persistent infections, Denies seasonal allergies, Denies urticaria, Denies wheezing Past Medical History Past Medical History: Coronary Artery Disease (CAD), Heart Failure, Diabetes Mellitus, GERD/Reflux, Hyperlipidemia, Hypertension, Myocardial Infarction (NM) , Pneumonia, Renal Disease, Rheumatoid Arthritis (RA), Thyroid Disorder Additional Past Medical History / Comment(s): 08/21/17 fall,fx rt tib/fib wears immobilizer.no wt bearing. bedsores/leg 08/12/17 with lower extremity edema r/t amlodipine. Other HX: Past low vitamin d levels which caused renal deficiency (CKD stage III), per pt, kidney stones, UTIs, parathyroid overactive related to low vit d levels per pt, pt states her vitamin D supplement has been discontinued-levels are now normal, chronic prednisone secondary to RA followed by Dr. Marlow, chronic CHF, NIDDM type II, chronic peripheral neuropathies hands and feet, chronic low back pain, chronic ANEMIA, hypothyroid, overactive parathyroid, COMPRESSION FX L1, PAST FALLS. Last Myocardial Infarction Date:: 11/2016 History of Any Multi-Drug Resistant Organisms: C-DIFF Date of last positivie culture/infection: 2014 MDRO Source:: C-DIFF Past Surgical History: Back Surgery, Section, Cholecystectomy, Heart Catheterization, Joint Replacement, Orthopedic Surgery, Tubal Ligation Additional Past Surgical History / Comment(s): Right TKA [place] [address] Sanchez L carpel tunnel release, CYST REMOVED (NECK) AGE 6, 2 back surgery 2004, EGD/ colonoscopy. Past Anesthesia/Blood Transfusion Reactions: No Reported Reaction Additional Past Anesthesia/Blood Transfusion Reaction / Comment(s): Blood pressure is labile at times with surgery. past blood transfusion-no reaction Smoking Status: Never smoker - Past Family History Sister(s) Family Medical History: Cancer, Diabetes Mellitus Additional Family Medical History / Comment(s): 11 siblings, 6 left. One sister had leukemia and another had ovarian cancer. Mother Family Medical History: Cancer, Diabetes Mellitus Additional Family Medical History / Comment(s): Addisons disease, reproductive cancer. Father Family Medical History: Cancer, Hypertension Additional Family Medical History / Comment(s): Father had throat cancer. He was a smoker. He also had anxiety. Medications and Allergies Home Medications Medication Instructions Recorded Confirmed Type Omeprazole [PriLOSEC] 20 mg PO BID 02/20/14 08/31/17 History Cyanocobalamin [Vitamin B-12] 1,000 mcg PO DAILY 08/19/14 08/31/17 History Ondansetron Odt [Zofran ODT] 4 mg PO Q8HR PRN #15 tab 01/04/15 08/31/17 Rx Liothyronine Sodium [Cytomel] 5 mcg PO DAILY 01/07/15 08/31/17 History Levothyroxine Sodium [Synthroid] 25 mcg PO DAILY@0630 tab 01/12/15 08/31/17 Rx ALPRAZolam [Xanax] 0.25 mg PO BID PRN 09/02/16 08/31/17 History Gabapentin [Neurontin] 100 mg PO TID 09/02/16 08/31/17 History Morphine Sulfate ER [Ms Contin] 15 mg PO BID 09/02/16 08/31/17 History HYDROcodone/APAP 10-325MG [Ridgeway 1 tab PO Q4HR PRN 09/25/16 08/31/17 History 10-325] Nitroglycerin Sl Tabs [Nitrostat] 0.4 mg SUBLINGUAL Q5M PRN #25 tab 12/09/16 Rx Isosorbide Mononitrate ER [Imdur] 30 mg PO QAM 01/17/17 08/31/17 History Sodium Bicarbonate Tab 650 mg PO DAILY 03/28/17 08/31/17 History Carvedilol 25 mg PO BID 05/03/17 08/31/17 History Magnesium Oxide [Mag-Ox] 250 mg PO HS 05/03/17 08/31/17 History Simvastatin 40 mg PO HS 05/03/17 08/31/17 History Ferrous Sulfate [Iron (65 MG 325 mg PO BID #0 06/03/17 08/31/17 Rx Elemental)] predniSONE 10 mg PO DAILY tab 06/03/17 08/31/17 Rx Metoclopramide [Reglan] 10 mg PO AC-TID #90 tab 06/11/17 08/31/17 Rx Furosemide [Lasix] 40 mg PO DAILY 08/12/17 08/31/17 History Linagliptin [Tradjenta] 5 mg PO DAILY tablet 08/15/17 08/31/17 Rx Avudcwvv-Fnrcyubty-Cxyyubws 1 drops RIGHT EYE Q4HR bottle 08/15/17 08/31/17 Rx [Maxitrol Ophth Susp] hydrALAZINE HCL [Apresoline] 25 mg PO TID #90 tab 08/15/17 08/31/17 Rx Insulin Glargine,Hum.rec.anlog 8 units SQ DAILY #0 08/28/17 08/31/17 Rx [Toujeo Solostar] Allergies Allergy/AdvReac Type Severity Reaction Status Date / Time codeine Allergy Rash/Hives Verified 08/31/17 12:00 gold sodium thiomalate Allergy Unknown Verified 09/01/17 14:17 Sulfa (Sulfonamide Allergy Rash/Hives Verified 08/31/17 12:00 Antibiotics) Physical Exam Vitals: Vital Signs Temp Pulse Pulse Resp BP BP Pulse Ox 09/01/17 15:00 99.3 F 94 18 111/61 91 L 09/01/17 07:00 98.3 F 99 18 119/65 95 08/31/17 23:00 98.0 F 96 16 143/76 93 L 08/31/17 19:48 90 16 08/31/17 19:27 97.6 F 90 16 126/78 93 L 08/31/17 15:42 94 18 139/62 91 L Intake and Output 09/01/17 09/01/17 09/01/17 06:59 14:59 22:59 Intake Total 900 Balance 900 Intake: Intake, IV Titration 900 Amount Ampicillin-Sulbactam 3 gm 100 In Sodium Chloride 0.9% 100 ml @ 100 mls/hr IVPB Q6H [facility]ITA Rx#:[id number] Sodium Chloride 0.9% 1, 800 000 ml @ 100 mls/hr IV . Q10H ZITA Rx#:[id number] Other: Voiding Method Bedpan Bedpan # Voids 6 # Bowel Movements 1 # Emeses 0 Weight 80 kg - Constitutional General appearance: cooperative, no acute distress, obese - EENT Eyes: anicteric sclerae, EOMI, PERRLA, dentition normal, normal appearance ENT: hearing grossly normal, NA/AT, normal oropharynx - Neck Neck: normal ROM - Respiratory Respiratory: bilateral: CTA, negative: diminished, dullness, rales, rhonchi - Cardiovascular Rhythm: regular Heart sounds: normal: S1, S2 Abnormal Heart Sounds: no systolic murmur, no diastolic murmur, no rub, no S3 Gallop, no S4 Gallop, no click, no other - Gastrointestinal General gastrointestinal: normal bowel sounds, soft - Integumentary Integumentary: normal, normal turgor - Neurologic Neurologic: CNII-XII intact - Musculoskeletal Musculoskeletal: gait normal, strength equal bilaterally - Psychiatric Psychiatric: A&O x's 3, appropriate affect, intact judgment & insight Results CBC & Chem 7: 09/01/17 07:12 09/01/17 07:12 Labs: Abnormal Lab Results - Last 24 Hours (Table) 08/31/17 08/31/17 09/01/17 Range/Units 19:00 20:40 03:13 RBC (3.80-5.40) m/uL Hgb (11.4-16.0) gm/dL Hct (34.0-46.0) % MCV (80.0-100.0) fL MCHC (31.0-37.0) g/dL Lymphocytes # (1.0-4.8) k/uL Chloride (98-107) mmol/L BUN (7-17) mg/dL Creatinine (0.52-1.04) mg/dL Glucose (74-99) mg/dL POC Glucose (mg/dL) 131 H 112 H (75-99) mg/dL Calcium (8.4-10.2) mg/dL Alkaline Phosphatase (38-126) U/L Total Protein (6.3-8.2) g/dL Albumin (3.5-5.0) g/dL Urine Appearance Cloudy H (Clear) Ur Leukocyte Esterase Large H (Negative) Urine WBC 120 H (0-5) /hpf Ur Squamous Epith Cells 14 H (0-4) /hpf Urine Bacteria Many H (None) /hpf Urine Mucus Occasional H (None) /hpf 09/01/17 09/01/17 09/01/17 Range/Units 07:12 07:12 07:28 RBC 2.35 L (3.80-5.40) m/uL Hgb 7.1 L (11.4-16.0) gm/dL Hct 24.5 L (34.0-46.0) % MCV 104.4 H (80.0-100.0) fL MCHC 29.1 L (31.0-37.0) g/dL Lymphocytes # 0.8 L (1.0-4.8) k/uL Chloride 112 H (98-107) mmol/L BUN 80 H* (7-17) mg/dL Creatinine 1.30 H (0.52-1.04) mg/dL Glucose 107 H (74-99) mg/dL POC Glucose (mg/dL) 121 H (75-99) mg/dL Calcium 8.0 L (8.4-10.2) mg/dL Alkaline Phosphatase 127 H (38-126) U/L Total Protein 4.4 L (6.3-8.2) g/dL Albumin 1.9 L (3.5-5.0) g/dL Urine Appearance (Clear) Ur Leukocyte Esterase (Negative) Urine WBC (0-5) /hpf Ur Squamous Epith Cells (0-4) /hpf Urine Bacteria (None) /hpf Urine Mucus (None) /hpf 09/01/17 Range/Units 11:48 RBC (3.80-5.40) m/uL Hgb (11.4-16.0) gm/dL Hct (34.0-46.0) % MCV (80.0-100.0) fL MCHC (31.0-37.0) g/dL Lymphocytes # (1.0-4.8) k/uL Chloride (98-107) mmol/L BUN (7-17) mg/dL Creatinine (0.52-1.04) mg/dL Glucose (74-99) mg/dL POC Glucose (mg/dL) 151 H (75-99) mg/dL Calcium (8.4-10.2) mg/dL Alkaline Phosphatase (38-126) U/L Total Protein (6.3-8.2) g/dL Albumin (3.5-5.0) g/dL Urine Appearance (Clear) Ur Leukocyte Esterase (Negative) Urine WBC (0-5) /hpf Ur Squamous Epith Cells (0-4) /hpf Urine Bacteria (None) /hpf Urine Mucus (None) /hpf Microbiology - Last 24 Hours (Table) 08/31/17 12:51 Blood Culture - Preliminary Blood No Growth after 24 hours 08/31/17 13:15 Gram Stain - Preliminary Leg - Left Wound Culture - Preliminary Presumptive MRSA Gram Neg Bacilli 08/31/17 19:00 Urine Culture - Preliminary Urine,Clean Catch Laboratory Results WBC 9.0 k/uL (3.8-10.6) 09/01/17 07:12 RBC 2.35 m/uL (3.80-5.40) L 09/01/17 07:12 Hgb 7.1 gm/dL (11.4-16.0) L 09/01/17 07:12 Hct 24.5 % (34.0-46.0) L 09/01/17 07:12 MCV 104.4 fL (80.0-100.0) H 09/01/17 07:12 MCH 30.4 pg (25.0-35.0) 09/01/17 07:12 MCHC 29.1 g/dL (31.0-37.0) L 09/01/17 07:12 RDW 15.1 % (11.5-15.5) 09/01/17 07:12 Plt Count 193 k/uL (150-450) 09/01/17 07:12 Neutrophils % 83 % 09/01/17 07:12 Lymphocytes % 9 % 09/01/17 07:12 Monocytes % 5 % 09/01/17 07:12 Eosinophils % 2 % 09/01/17 07:12 Basophils % 0 % 09/01/17 07:12 Neutrophils # 7.5 k/uL (1.3-7.7) 09/01/17 07:12 Lymphocytes # 0.8 k/uL (1.0-4.8) L 09/01/17 07:12 Monocytes # 0.4 k/uL (0-1.0) 09/01/17 07:12 Eosinophils # 0.1 k/uL (0-0.7) 09/01/17 07:12 Basophils # 0.0 k/uL (0-0.2) 09/01/17 07:12 Hypochromasia Marked 09/01/17 07:12 Macrocytosis Moderate 09/01/17 07:12 PT 9.8 sec (9.0-12.0) 08/31/17 12:51 INR 1.0 (<1.2) 08/31/17 12:51 APTT 21.9 sec (22.0-30.0) L 08/31/17 12:51 Sodium 144 mmol/L (137-145) 09/01/17 07:12 Potassium 4.6 mmol/L (3.5-5.1) 09/01/17 07:12 Chloride 112 mmol/L (98-107) H 09/01/17 07:12 Carbon Dioxide 25 mmol/L (22-30) 09/01/17 07:12 Anion Gap 7 mmol/L 09/01/17 07:12 BUN 80 mg/dL (7-17) H* 09/01/17 07:12 Creatinine 1.30 mg/dL (0.52-1.04) H 09/01/17 07:12 Est GFR (MDRD) Af Amer 50 (>60 ml/min/1.73 sqM) 09/01/17 07:12 Est GFR (MDRD) Non-Af 41 (>60 ml/min/1.73 sqM) 09/01/17 07:12 Glucose 107 mg/dL (74-99) H 09/01/17 07:12 POC Glucose (mg/dL) 93 mg/dL (75-99) 09/01/17 17:16 POC Glu Arc Cutter Plasma Arc ID Catrina Gregorio 09/01/17 17:[address] Glu mg/dL 126 08/31/17 12:51 Hemoglobin A1c 6.0 % (4.0-6.0) 08/31/17 12:51 Plasma Lactic Acid Ricci 0.9 mmol/L (0.7-2.0) 08/31/17 12:51 Calcium 8.0 mg/dL (8.4-10.2) L 09/01/17 07:12 Total Bilirubin 0.5 mg/dL (0.2-1.3) 09/01/17 07:12 AST 15 U/L (14-36) 09/01/17 07:12 ALT 19 U/L (9-52) 09/01/17 07:12 Alkaline Phosphatase 127 U/L (38-126) H 09/01/17 07:12 Total Protein 4.4 g/dL (6.3-8.2) L 09/01/17 07:12 Albumin 1.9 g/dL (3.5-5.0) L 09/01/17 07:12 Urine Color Yellow 08/31/17 19:00 Urine Appearance Cloudy (Clear) H 08/31/17 19:00 Urine pH 5.0 (5.0-8.0) 08/31/17 19:00 Ur Specific [place] 1.010 (1.001-1.035) 08/31/17 19:00 Urine Protein Negative (Negative) 08/31/17 19:00 Urine Glucose (UA) Negative (Negative) 08/31/17 19:00 Urine Ketones Negative (Negative) 08/31/17 19:00 Urine Blood Negative (Negative) 08/31/17 19:00 Urine Nitrite Negative (Negative) 08/31/17 19:00 Urine Bilirubin Negative (Negative) 08/31/17 19:00 Urine Urobilinogen <2.0 mg/dL (<2.0) 08/31/17 19:00 Ur Leukocyte Esterase Large (Negative) H 08/31/17 19:00 Urine RBC 3 /hpf (0-5) 08/31/17 19:00 Urine WBC 120 /hpf (0-5) H 08/31/17 19:00 Ur Squamous Epith Cells 14 /hpf (0-4) H 08/31/17 19:00 Urine Bacteria Many /hpf (None) H 08/31/17 19:00 Urine Mucus Occasional /hpf (None) H 08/31/17 19:00 Thrombosis Risk Factor Assmnt - DVT/VTE Prophylaxis DVT/VTE Prophylaxis: Pharmacologic Prophylaxis ordered, Contraindicated - See note - Choose All That Apply Each Factor Represents 1 point: Medical pt on bed rest Each Risk Factor Represents 2 Points: Age 61-74 years Each Risk Factor Represents 5 Points: Hip, pelvis, or leg fracture (< 1 month) Thrombosis Risk Factor Assessment Total Risk Factor Score: 8 Thrombosis Risk Factor Assessment Level: Moderate Risk Assessment and Plan Plan: 1. Bilateral cellulitis with weeping edema bilateral lower legs, multiple lesions with purulent discharge on Pletal creases) left calf with use and coccyx present prior to admission pressure and MRSA and gram-negative bacilli growing, patient is on Unasyn IV vancomycin was added, pharmacy to dose vancomycin, consult were made with Dr. Carbone, 2. Pressure ulcers were the knee immobilizer was located on the right side leg up to the thigh and calf, necrotic ulcer left calf, local wound care consultation patient has impaired Mobility, air mattress ordered 3. Recent Right nondisplaced distal femur fracture and proximal tibia and fibula fracture present prior to admission. Continue current pain management as well as Ridgeway 10/325 mg 1 tablet 4 hours as needed, patient is already on morphine sulfate twice 15 mg every day. Wounds have developed word immobilizer was, orthopedics has been consulted continue other management as per orthopedic service. 4. Chronic diastolic heart failure. Continue Coreg 25 mg orally twice every day, Lasix 40 mg orally once every day. 5. Diabetic gastroparesis . On Reglan 10 mg 3 times daily. 6. Chronic iron deficiency anemia with drop in hemoglobin. Monitor for blood loss anemia.. Continue iron 325 mg orally twice every day, vitamin B12. Patient is on Procrit type injections through Dr. Guido with improvement of hemoglobin. Outpatient follow-up 7. Acute kidney injury (present on admission) with stage III chronic kidney disease, azotemia. Monitor chemistries, avoid nephrotoxic agents. Continue sodium bicarb 650 mg daily. Recheck labs in the morning. 8. Chronic immunosuppression from prednisone use, Rheumatoid arthritis not on any DMARDSl. Stable at this time. She is on prednisone 10 mg daily, obtain immunofixation and serum protein electrophoresis 9. Chronic pain syndrome from rheumatoid arthritis. Patient has been on MS Contin 15 mg twice a day along with Ridgeway 10/325 g every 4 hours as needed. 10. Hypothyroidism. Continue Cytomel 5 mcg orally daily. 11. Diabetes mellitus type 2. Last hemoglobin A1c 6.0 last 08/31/2017 Continue Levemir only. NovoLog coverage, off Prandin continue through gentle 12. CAD. stable. Continue with Coreg 25 mg orally twice every day, Imdur 30 mg orally once every day, Lipitor 20 mg orally once every day. 13. Hypertension and hypertensive cardiovascular disease. Continue coreg 25 mg orally twice daily, hydralazine 25 mg 3 times daily. Amlodipine discontinued by cardiology. 14. Hyperlipidemia. continue Lipitor 20 mg orally once every day. 15. Chronic neuropathy: Mostly idiopathic peripheral neuropathy and diabetic neuropathy as well to continue Neurontin 100 mg 3 times a day. 16. GI prophylaxis. Continue home Protonix 40 milligrams orally once every day. 17. DVT prophylaxis. Heparin 5000 units SC Q 8 h. 18. Anemia of chronic disease, we would restart Procrit, eye redness 40 mg every weekly follows with Dr. Guido as an outpatient. Transfuse it under 7, 19. Moderate protein malnutrition, we would obtain prealbumin and protein supplementation to be given 18. CODE STATUS: Full code. Discharge plan: To be determined. Patient was at [facility] home family-owned prior to admission
[2017-09-01] MEDS: ATORVASTATIN 20 MG TAB PO SCH (21:25)
[2017-09-01] MEDS: MAGNESIUM OXIDE 400 MG TAB PO SCH (21:25)
[2017-09-01] MEDS: PANTOPRAZOLE 40 MG TABLET PO SCH (21:25)
[2017-09-01] MEDS: FERROUS SULFATE 325 MG TAB PO SCH (21:25)
[2017-09-01] MEDS: MORPHINE SULFATE ER 15 MG TABLET PO SCH (21:27)
[2017-09-01] MEDS: HEPARIN SODIUM,PORCINE 5,000 UNIT/ML 1 ML VIAL SQ SCH (21:32)
[2017-09-01 21:35] LABS: Glucose,Whole Blood 111 mg/dL (75-99)
[2017-09-02] MEDS: AMPICILLIN-SULBACTAM 3 GM in SODIUM CHLORIDE 0.9% 100 ML IVPB SCH ×4 (02:02→20:47)
[2017-09-02] MEDS: HYDROcodone/APAP 10-325MG 1 EACH TAB PO PRN ×3 (04:18→23:35)
[2017-09-02] MEDS: VANCOMYCIN 1,500 MG in SODIUM CHLORIDE 0.9% 250 ML IVPB SCH (06:08)
[2017-09-02] MEDS: LEVOTHYROXINE 25 MCG TAB PO SCH (06:58)
[2017-09-02 07:36] LABS: Glucose,Whole Blood 72 mg/dL (75-99)
[2017-09-02] MEDS: ONDANSETRON 4 MG/2 ML VIAL IVP PRN (08:18)
[2017-09-02 08:46] LABS: Albumin 1.8 g/dL (3.5-5.0); Calcium 7.9 mg/dL (8.4-10.2); Potassium 4.5 mmol/L (3.5-5.1); Total Bilirubin 0.6 mg/dL (0.2-1.3)
[2017-09-02 08:56] LABS: Basophils % (A) 0 %; Eosinophils # (A) 0.2 k/uL (0-0.7); Eosinophils % (A) 2 %; HCT 22.6 % (34.0-46.0); Hypochromasia Marked; Lymphocytes # (A) 0.7 k/uL (1.0-4.8); Lymphocytes % (A) 9 %; MCH 30.5 pg (25.0-35.0); MCHC 28.9 g/dL (31.0-37.0); MCV 105.6 fL (80.0-100.0); Macrocytosis Moderate; Mean Platelet Volume 8.1; Monocytes # (A) 0.4 k/uL (0-1.0); Monocytes % (A) 5 %; Neutrophils # (A) 6.4 k/uL (1.3-7.7); Neutrophils % (A) 82 %; Platelet Count 158 k/uL (150-450); RBC 2.14 m/uL (3.80-5.40); WBC 7.8 k/uL (3.8-10.6)
[2017-09-02] MEDS ORDERED: INSULIN DETEMIR 100 UNIT/ML 10 ML VIAL SQ SCH (09:00)
[2017-09-02 09:01] LABS: HGB 6.5 gm/dL (11.4-16.0)
--- NOTE | 2017-09-02 09:21 | P.PN ---
Subjective Progress Note Date: 09/02/17 This is a 67-year-old female who sustained a periprosthetic proximal tibia and proximal fibula fracture to the right lower extremity over 1 week ago. Patient sustained skin breakdown from the knee immobilizer that was in place for 10 days. Today patient complains of pain to the right lower extremity but states the right lower extremity feels better with the knee immobilizer off. Patient denies any new complaints today. Objective - Vital Signs Vital signs: Vital Signs Temp 98.3 F 09/02/17 06:42 Pulse 95 09/02/17 06:42 Resp 16 09/02/17 06:42 BP 117/60 09/02/17 06:42 Pulse Ox 95 09/02/17 06:42 Intake & Output 09/01/17 09/02/17 09/02/17 18:59 06:59 18:59 Intake Total 900 Balance 900 Weight 80 kg Intake: Intake, IV Titration 900 Amount Ampicillin-Sulbactam 3 gm 100 In Sodium Chloride 0.9% 100 ml @ 100 mls/hr IVPB Q6H [facility] Rx#:[id number] Sodium Chloride 0.9% 1, 800 000 ml @ 100 mls/hr IV . Q10H [facility] Rx#:[id number] Other: Voiding Method Bedpan Bedpan # Voids 2 # Bowel Movements 0 - Exam On exam patient is lying comfortably in bed in no acute distress. Patient is alert and oriented 3. On exam of the right lower extremity there is ecchymosis extending from the right knee to the mid calf. There are areas of skin breakdown to the right lower leg. Patient has full foot and ankle motion without pain or difficulty. Calf is soft and nontender. Neurovascular status and circulatory status are intact. - Labs CBC & Chem 7: 09/02/17 07:33 09/02/17 07:33 Labs: Abnormal Lab Results - Last 24 Hours (Table) 09/01/17 09/01/17 09/02/17 Range/Units 11:48 21:26 07:22 RBC (3.80-5.40) m/uL Hgb (11.4-16.0) gm/dL Hct (34.0-46.0) % MCV (80.0-100.0) fL MCHC (31.0-37.0) g/dL Lymphocytes # (1.0-4.8) k/uL Chloride (98-107) mmol/L BUN (7-17) mg/dL Creatinine (0.52-1.04) mg/dL Glucose (74-99) mg/dL POC Glucose (mg/dL) 151 H 111 H 72 L (75-99) mg/dL Calcium (8.4-10.2) mg/dL AST (14-36) U/L Total Protein (6.3-8.2) g/dL Albumin (3.5-5.0) g/dL 09/02/17 09/02/17 Range/Units 07:33 07:33 RBC 2.14 L (3.80-5.40) m/uL Hgb 6.5 L* (11.4-16.0) gm/dL Hct 22.6 L (34.0-46.0) % MCV 105.6 H (80.0-100.0) fL MCHC 28.9 L (31.0-37.0) g/dL Lymphocytes # 0.7 L (1.0-4.8) k/uL Chloride 111 H (98-107) mmol/L BUN 70 H (7-17) mg/dL Creatinine 1.60 H (0.52-1.04) mg/dL Glucose 59 L (74-99) mg/dL POC Glucose (mg/dL) (75-99) mg/dL Calcium 7.9 L (8.4-10.2) mg/dL AST 13 L (14-36) U/L Total Protein 4.0 L (6.3-8.2) g/dL Albumin 1.8 L (3.5-5.0) g/dL Microbiology - Last 24 Hours (Table) 08/31/17 19:00 Urine Culture - Final Urine,Clean Catch 08/31/17 12:51 Blood Culture - Preliminary Blood No Growth after 24 hours 08/31/17 13:15 Gram Stain - Preliminary Leg - Left Wound Culture - Preliminary Presumptive MRSA Gram Neg Bacilli Assessment and Plan (1) Cellulitis of right lower extremity Current Visit: Yes Status: Acute Code(s): L03.115 - CELLULITIS OF RIGHT LOWER LIMB SNOMED Code(s): 559714692 (2) Fracture of proximal end of right fibula Current Visit: No Status: Acute Code(s): S82.831A - OTH FRACTURE OF UPPER AND LOWER END OF RIGHT FIBULA, INIT SNOMED Code(s): 58102771 (3) Fracture of proximal end of right tibia Current Visit: No Status: Acute Code(s): S82.101A - UNSP FRACTURE OF UPPER END OF RIGHT TIBIA, INIT FOR CLOS FX SNOMED Code(s): 60732433 (4) Periprosthetic fracture around internal prosthetic right knee joint Current Visit: No Status: Acute Code(s): M97.11XA - PERIPROSTH FRACTURE AROUND INTERNAL PROSTH R KNEE JT, INIT SNOMED Code(s): 394558529 Plan: #1. Nonweightbearing to the right lower extremity. #2. Leave knee immobilizer off of right lower extremity #3. Elevate right lower extremity #4. Continue wound care #5. IV antibiotics per internal medicine #5. Will continue to follow the patient closely.
[2017-09-02] MEDS: INSULIN ASPART 100 UNIT/ML 1 ML 10 ML VIAL SQ SCH ×4 (09:38→21:17)
[2017-09-02] MEDS: CARVEDILOL 12.5 MG TAB PO SCH ×2 (09:52→18:02)
[2017-09-02] MEDS: GABAPENTIN 100 MG CAP PO SCH ×3 (09:53→21:16)
[2017-09-02] MEDS: FUROSEMIDE 40 MG TAB PO SCH (09:53)
[2017-09-02] MEDS: LIOTHYRONINE SODIUM 5 MCG TAB PO SCH (09:53)
[2017-09-02] MEDS: SODIUM BICARBONATE TAB 650 MG TAB PO SCH (09:53)
[2017-09-02] MEDS: FERROUS SULFATE 325 MG TAB PO SCH ×2 (09:53→21:16)
[2017-09-02] MEDS: CYANOCOBALAMIN 500 MCG TAB PO SCH (09:53)
[2017-09-02] MEDS: METOCLOPRAMIDE 10 MG TAB PO SCH ×3 (09:54→19:20)
[2017-09-02] MEDS: hydrALAZINE HCL 25 MG TAB PO SCH ×3 (09:54→23:31)
[2017-09-02] MEDS: LINAGLIPTIN 5 MG TABLET PO SCH (09:54)
[2017-09-02] MEDS: PANTOPRAZOLE 40 MG TABLET PO SCH ×2 (09:54→21:17)
[2017-09-02] MEDS: predniSONE 10 MG TAB PO SCH (09:54)
[2017-09-02] MEDS: HEPARIN SODIUM,PORCINE 5,000 UNIT/ML 1 ML VIAL SQ SCH ×2 (09:55→21:17)
[2017-09-02] MEDS: MORPHINE SULFATE ER 15 MG TABLET PO SCH (09:55)
[2017-09-02] MEDS: ISOSORBIDE MONONITRATE ER 30 MG TAB.ER.24H PO SCH (09:55)
[2017-09-02] MEDS: SODIUM CHLORIDE 0.9% 1,000 ML IV SCH ×2 (10:00→18:04)
[2017-09-02] MEDS ORDERED: HYDROmorphone 4 MG TABLET PO PRN (11:03)
[2017-09-02 12:15] LABS: Glucose,Whole Blood 242 mg/dL (75-99)
[2017-09-02 17:30] LABS: Glucose,Whole Blood 209 mg/dL (75-99)
--- NOTE | 2017-09-02 19:49 | P.PN ---
Subjective Progress Note Date: 09/02/17 This is a 67-year-old female one of my clinic patient's with past medical history of rheumatoid arthritis on prednisone hyperlipidemia, chronic anemia, CKD [address] Cowan, chronic pain syndrome, hypothyroidism , history of coronary artery disease that is post 2 MIs, chronic diastolic heart failure, hypertension, diabetes mellitus type 2, diabetic neuropathy, diabetic gastroparesis, lower back pain with compression fracture L1, chronic anemia and follows with Dr. Guido, recently admitted from a facility on August 22 to 08/28/2017 found to have a distal femur fracture with nondisplaced proximal fibula and tibia fracture, she was placed in immobilizer she was admitted under orthopedic service she did not qualify for inpatient or subacute rehabilitation, and family is unable to care for her at home, she is physically disabled requiring mainly a power chair and pivoting limited walker assist at home, prior to the right patella new fracture. She is now on a knee mobilizer, with strict nonweightbearing to the right leg and was discharged to an [facility] home which was owned by a family member ,brother. Patient has a hospital bed and home care. Home care nurse came in to evaluate her today, and was concerned about developing cellulitis in the left leg and the right leg, she also is concerned about weeping edema, patient denies any fever however she has chills, weeping edema in the lower legs, and she is on weekly immunosuppressed with chronic prednisone for her rheumatoid arthritis. She is not on any disease modifying agents. She mentions that the left leg has a necrotic wound which started as a bruise on the calf when a nurse tried transferring now measuring approximately 2 cm x 1.5 cm black in collar slightly depressed with peripheral redness surrounding swelling. she has multiple ones in the bilateral posterior thigh, popliteal creases, gluteal creases, all of which are very uncomfortable some of the wounds are draining yellow-green mainly in the right leg During her last admission she has the following evaluation: CAT scan of the knee reveals marked osteopenia. Fractures of both medial and lateral distal femoral metadiaphysis with. Prosthetic extension to the for moral condylar components of the prosthesis. Minimal cortical offset is seen medially. Transverse to oblique fracture of the proximal tibial metadiaphysis. Fracture line may extend to the anterior medial tibial tray screw but otherwise shows no clear periprostatic extension. Subtle minimally offset fibular head/neck fracture. Small knee joint effusion, diffuse muscular atrophy and extensive vascular calcifications. Consult were made with Dr. Carbone, her preliminary cultures shows presumptive MRSA, and gram-negative bacilli, patient was started on vancomycin, and currently is on IV Unasyn. On her last admission she was treated for S marcescens UTI cultures on on 08/26/201709/02: Patient still has uncontrolled pain, hemoglobin dropped to 6.5, no ongoing GI losses, 2 units packed red blood cell, with given today, morphine ER with increased to 30 mg twice a day, Objective - Vital Signs Vital signs: Vital Signs Temp 99.3 F 09/02/17 15:00 Pulse 95 09/02/17 15:00 Resp 20 09/02/17 15:00 BP 101/52 09/02/17 15:00 Pulse Ox 91 L 09/02/17 15:00 Intake & Output 09/01/17 09/02/17 09/02/17 18:59 06:59 18:59 Intake Total 900 Balance 900 Weight 80 kg Intake: Intake, IV Titration 900 Amount Ampicillin-Sulbactam 3 gm 100 In Sodium Chloride 0.9% 100 ml @ 100 mls/hr IVPB Q6H [facility] Rx#:[id number] Sodium Chloride 0.9% 1, 800 000 ml @ 100 mls/hr IV . Q10H [facility] Rx#:[id number] Other: Voiding Method Bedpan Bedpan # Voids 2 4 # Bowel Movements 0 - Constitutional General appearance: Present: cooperative, no acute distress, obese - EENT Eyes: Present: anicteric sclerae, EOMI, dentition normal, normal appearance ENT: Present: NA/AT, normal oropharynx - Respiratory Respiratory: bilateral: CTA, negative: diminished, dullness, rales, rhonchi, wheezing, prolonged expiration, prolonged inspiration - Cardiovascular Rhythm: regular Heart sounds: normal: S1, S2 Abnormal Heart Sounds: Absent: systolic murmur, diastolic murmur, rub, S3 Gallop , S4 Gallop, click, other - Gastrointestinal General gastrointestinal: Present: normal bowel sounds, soft - Integumentary Integumentary: Present: normal, normal turgor - Neurologic Neurologic: Present: CNII-XII intact - Psychiatric Psychiatric: Present: A&O x's 3, intact judgment & insight - Labs CBC & Chem 7: 09/02/17 07:33 09/02/17 07:33 Labs: Abnormal Lab Results - Last 24 Hours (Table) 09/01/17 09/02/17 09/02/17 Range/Units 21:26 07:22 07:33 RBC 2.14 L (3.80-5.40) m/uL Hgb 6.5 L* (11.4-16.0) gm/dL Hct 22.6 L (34.0-46.0) % MCV 105.6 H (80.0-100.0) fL MCHC 28.9 L (31.0-37.0) g/dL Lymphocytes # 0.7 L (1.0-4.8) k/uL Chloride (98-107) mmol/L BUN (7-17) mg/dL Creatinine (0.52-1.04) mg/dL Glucose (74-99) mg/dL POC Glucose (mg/dL) 111 H 72 L (75-99) mg/dL Calcium (8.4-10.2) mg/dL AST (14-36) U/L Total Protein (6.3-8.2) g/dL Albumin (3.5-5.0) g/dL 09/02/17 09/02/17 Range/Units 07:33 12:08 RBC (3.80-5.40) m/uL Hgb (11.4-16.0) gm/dL Hct (34.0-46.0) % MCV (80.0-100.0) fL MCHC (31.0-37.0) g/dL Lymphocytes # (1.0-4.8) k/uL Chloride 111 H (98-107) mmol/L BUN 70 H (7-17) mg/dL Creatinine 1.60 H (0.52-1.04) mg/dL Glucose 59 L (74-99) mg/dL POC Glucose (mg/dL) 242 H (75-99) mg/dL Calcium 7.9 L (8.4-10.2) mg/dL AST 13 L (14-36) U/L Total Protein 4.0 L (6.3-8.2) g/dL Albumin 1.8 L (3.5-5.0) g/dL Microbiology - Last 24 Hours (Table) 08/31/17 12:51 Blood Culture - Preliminary Blood No Growth after 48 hours 08/31/17 13:15 Gram Stain - Final Leg - Left Wound Culture - Final Methicillin resist S. aureus Serratia marcescens Klebsiella pneumoniae 08/31/17 19:00 Urine Culture - Final Urine,Clean Catch Assessment and Plan Plan: 1. Bilateral cellulitis with weeping edema bilateral lower legs, multiple lesions with purulent discharge on Pletal creases) left calf with use and coccyx present prior to admission pressure aconfirmed MRSA and gram-negative bacilli growing Serratia marcescens. Klebsiella pneumonia, patient is on Unasyn IV vancomycin was added, pharmacy to dose vancomycin, consult were made with Dr. Carbone, 2. Pressure ulcers were the knee immobilizer was located on the right side leg up to the thigh and calf, necrotic ulcer left calf, local wound care consultation patient has impaired Mobility, air mattress ordered patient unable to use the immobilizer at this time secondary to pressure ulcers and is discontinued temporarily 3. Recent Right nondisplaced distal femur fracture and proximal tibia and fibula fracture present prior to admission. Continue current pain management as well as Meridian 10/325 mg 1 tablet 4 hours as needed, patient is already on morphine sulfate twice 15 mg every day. Wounds have developed word immobilizer was, orthopedics has been consulted continue other management as per orthopedic service. 4. Chronic diastolic heart failure. Continue Coreg 25 mg orally twice every day, Lasix 40 mg orally once every day. 5. Diabetic gastroparesis . On Reglan 10 mg 3 times daily. 6. Chronic iron deficiency anemia with drop in hemoglobin. Monitor for blood loss anemia.. Continue iron 325 mg orally twice every day, vitamin B12. Patient is on Procrit type injections through Dr. Guido with improvement of hemoglobin. Outpatient follow-up. blood transfusion given on 09/02/17 2 units packed red blood cells for hemoglobin 6.5 7. Acute kidney injury (present on admission) with stage III chronic kidney disease, azotemia. Monitor chemistries, avoid nephrotoxic agents. Continue sodium bicarb 650 mg daily. Recheck labs in the morning. 8. Chronic immunosuppression from prednisone use, Rheumatoid arthritis not on any DMARDSl. Stable at this time. She is on prednisone 10 mg daily, obtain immunofixation and serum protein electrophoresis 9. uncontrolledChronic pain syndrome from rheumatoid arthritisalong with patellar fracture andwounds him a. Patient has been on MS Contin 15 mg twice a day, increased to 30mg twice a day on 09/05. along with Meridian 10/325 g every 4 hours as needed. 10. Hypothyroidism. Continue Cytomel 5 mcg orally daily. 11. Diabetes mellitus type 2. Last hemoglobin A1c 6.0 last 08/31/2017 discontinue Levemir we will change this to NPH 8 units every morning to cover for. Steroid-induced hyperglycemia patient has mild hypoglycemia with Levemir. NovoLog coverage, off Prandin 12. CAD. stable. Continue with Coreg 25 mg orally twice every day, Imdur 30 mg orally once every day, Lipitor 20 mg orally once every day. 13. Hypertension and hypertensive cardiovascular disease. Continue coreg 25 mg orally twice daily, hydralazine 25 mg 3 times daily. Amlodipine discontinued by cardiology. 14. Hyperlipidemia. continue Lipitor 20 mg orally once every day. 15. Chronic neuropathy: Mostly idiopathic peripheral neuropathy and diabetic neuropathy as well to continue Neurontin 100 mg 3 times a day. 16. GI prophylaxis. Continue home Protonix 40 milligrams orally once every day. 17. DVT prophylaxis. Heparin 5000 units SC Q 8 h. 18. Anemia of chronic disease, we would restart Procrit, eye redness 40 mg every weekly follows with Dr. Guido as an outpatient. Transfuse it under 7, 19. Moderate protein malnutrition, we would obtain prealbumin and protein supplementation to be given 20. Uncontrolled chronic pain 18. CODE STATUS: Full code. Discharge plan: To be determined. Patient was at [facility] home family-owned prior to admission
[2017-09-02 20:56] LABS: Glucose,Whole Blood 262 mg/dL (75-99)
[2017-09-02] MEDS: MORPHINE SULFATE ER 30 MG TABLET PO SCH (21:16)
[2017-09-02] MEDS: ATORVASTATIN 20 MG TAB PO SCH (21:16)
[2017-09-02] MEDS: MAGNESIUM OXIDE 400 MG TAB PO SCH (21:17)
[2017-09-03] MEDS: MELATONIN 3 MG TABLET PO PRN ×2 (01:02→21:52)
[2017-09-03 02:12] LABS: Glucose,Whole Blood 185 mg/dL (75-99)
[2017-09-03] MEDS: AMPICILLIN-SULBACTAM 3 GM in SODIUM CHLORIDE 0.9% 100 ML IVPB SCH ×2 (04:15→11:34)
[2017-09-03] MEDS: SODIUM CHLORIDE 0.9% 1,000 ML IV SCH ×3 (04:18→23:09)
[2017-09-03] MEDS ORDERED: POTASSIUM CHLORIDE ER 20 MEQ TAB.ER PO STA (05:15)
[2017-09-03] MEDS ORDERED: FUROSEMIDE 10 MG/ML 4 ML VIAL IV STA (05:15)
[2017-09-03] MEDS: VANCOMYCIN 1,500 MG in SODIUM CHLORIDE 0.9% 250 ML IVPB SCH (05:21)
[2017-09-03] MEDS: LEVOTHYROXINE 25 MCG TAB PO SCH (06:23)
[2017-09-03 07:33] LABS: Glucose,Whole Blood 140 mg/dL (75-99)
[2017-09-03 08:28] VITALS: RESP 16
--- NOTE | 2017-09-03 08:39 | P.PN ---
Subjective Progress Note Date: 09/03/17 Principal diagnosis: Proximal fibular fracture right leg. Periprosthetic proximal tibia fracture right leg. Skin breakdown right lower leg. This is a 67-year-old female who we are following regarding her right lower leg. She has fractures to the proximal fibula, proximal tibia (periprosthetic) . She had skin breakdown to the lower leg secondary to the knee immobilizer. The immobilizer was removed on Sunday. Patient states that her knee is feeling better out of the brace. Objective - Vital Signs Vital signs: Vital Signs Temp 96.8 F L 09/03/17 08:28 Pulse 83 09/03/17 08:28 Resp 16 09/03/17 08:28 BP 112/63 09/03/17 08:28 Pulse Ox 94 L 09/03/17 08:15 Intake & Output 09/02/17 09/03/17 09/03/17 18:59 06:59 18:59 Intake Total 310 0 Balance 310 0 Weight 87 kg Intake: Blood Product 310 0 Rc As-1 Unit 310 [id number] Rc As-1 Unit 0 [id number] Other: Voiding Method Bedpan Bedpan # Voids 4 2 # Bowel Movements 1 - Exam This is a pleasant 67-year-old female in no acute distress. She is alert and oriented 3. Exam of the right lower extremity reveals that there are multiple areas of skin breakdown with some serous weeping. There is pain with any motion of the knee. She has full foot ankle motion without difficulty or pain. Neurovascular status to the lower extremities grossly intact. - Labs CBC & Chem 7: 09/02/17 07:33 09/02/17 07:33 Labs: Abnormal Lab Results - Last 24 Hours (Table) 09/02/17 09/02/17 09/02/17 Range/Units 07:33 07:33 07:33 RBC 2.14 L (3.80-5.40) m/uL Hgb 6.5 L* (11.4-16.0) gm/dL Hct 22.6 L (34.0-46.0) % MCV 105.6 H (80.0-100.0) fL MCHC 28.9 L (31.0-37.0) g/dL Lymphocytes # 0.7 L (1.0-4.8) k/uL Chloride 111 H (98-107) mmol/L BUN 70 H (7-17) mg/dL Creatinine 1.60 H (0.52-1.04) mg/dL Glucose 59 L (74-99) mg/dL POC Glucose (mg/dL) (75-99) mg/dL Calcium 7.9 L (8.4-10.2) mg/dL AST 13 L (14-36) U/L Total Protein 4.0 L (6.3-8.2) g/dL Total Protein (PEP) 4.0 L (6.2-8.2) g/dL Albumin 1.8 L (3.5-5.0) g/dL Crossmatch 09/02/17 09/02/17 09/02/17 Range/Units 12:08 17:22 17:57 RBC (3.80-5.40) m/uL Hgb (11.4-16.0) gm/dL Hct (34.0-46.0) % MCV (80.0-100.0) fL MCHC (31.0-37.0) g/dL Lymphocytes # (1.0-4.8) k/uL Chloride (98-107) mmol/L BUN (7-17) mg/dL Creatinine (0.52-1.04) mg/dL Glucose (74-99) mg/dL POC Glucose (mg/dL) 242 H 209 H (75-99) mg/dL Calcium (8.4-10.2) mg/dL AST (14-36) U/L Total Protein (6.3-8.2) g/dL Total Protein (PEP) (6.2-8.2) g/dL Albumin (3.5-5.0) g/dL Crossmatch See Detail 09/02/17 09/03/17 09/03/17 Range/Units 20:49 02:07 07:31 RBC (3.80-5.40) m/uL Hgb (11.4-16.0) gm/dL Hct (34.0-46.0) % MCV (80.0-100.0) fL MCHC (31.0-37.0) g/dL Lymphocytes # (1.0-4.8) k/uL Chloride (98-107) mmol/L BUN (7-17) mg/dL Creatinine (0.52-1.04) mg/dL Glucose (74-99) mg/dL POC Glucose (mg/dL) 262 H 185 H 140 H (75-99) mg/dL Calcium (8.4-10.2) mg/dL AST (14-36) U/L Total Protein (6.3-8.2) g/dL Total Protein (PEP) (6.2-8.2) g/dL Albumin (3.5-5.0) g/dL Crossmatch Microbiology - Last 24 Hours (Table) 08/31/17 12:51 Blood Culture - Preliminary Blood No Growth after 48 hours 08/31/17 13:15 Gram Stain - Final Leg - Left Wound Culture - Final Methicillin resist S. aureus Serratia marcescens Klebsiella pneumoniae Assessment and Plan (1) Cellulitis of right lower extremity Current Visit: Yes Status: Acute Code(s): L03.115 - CELLULITIS OF RIGHT LOWER LIMB SNOMED Code(s): 876457836 (2) Fracture of proximal end of right tibia Current Visit: No Status: Acute Code(s): S82.101A - UNSP FRACTURE OF UPPER END OF RIGHT TIBIA, INIT FOR CLOS FX SNOMED Code(s): 87430081 (3) Periprosthetic fracture around internal prosthetic right knee joint Current Visit: No Status: Acute Code(s): M97.11XA - PERIPROSTH FRACTURE AROUND INTERNAL PROSTH R KNEE JT, INIT SNOMED Code(s): 899590529 Plan: The clinical findings are discussed with the patient and nursing staff. Since the patient is nonambulatory at this time, we will keep her out of the knee immobilizer and keep the leg on a padded pillow for comfort. Continue wound care to the lower leg. Continue IV antibiotics per medicine.
[2017-09-03] MEDS: CARVEDILOL 12.5 MG TAB PO SCH ×2 (08:53→18:15)
[2017-09-03] MEDS: METOCLOPRAMIDE 10 MG TAB PO SCH ×3 (08:53→18:15)
[2017-09-03] MEDS: HEPARIN SODIUM,PORCINE 5,000 UNIT/ML 1 ML VIAL SQ SCH ×2 (08:53→20:14)
[2017-09-03] MEDS: FUROSEMIDE 40 MG TAB PO SCH (08:53)
[2017-09-03] MEDS: GABAPENTIN 100 MG CAP PO SCH ×3 (08:54→21:48)
[2017-09-03] MEDS: CYANOCOBALAMIN 500 MCG TAB PO SCH (08:54)
[2017-09-03] MEDS: INSULIN ASPART 100 UNIT/ML 1 ML 10 ML VIAL SQ SCH ×4 (08:54→21:48)
[2017-09-03] MEDS: FERROUS SULFATE 325 MG TAB PO SCH ×2 (08:54→20:14)
[2017-09-03] MEDS: SODIUM BICARBONATE TAB 650 MG TAB PO SCH (08:56)
[2017-09-03] MEDS: LINAGLIPTIN 5 MG TABLET PO SCH (08:56)
[2017-09-03] MEDS: PANTOPRAZOLE 40 MG TABLET PO SCH ×2 (08:56→20:14)
[2017-09-03] MEDS: ISOSORBIDE MONONITRATE ER 30 MG TAB.ER.24H PO SCH (08:56)
[2017-09-03] MEDS: predniSONE 10 MG TAB PO SCH (08:57)
[2017-09-03] MEDS: MORPHINE SULFATE ER 30 MG TABLET PO SCH ×2 (09:10→20:14)
[2017-09-03] MEDS: cefTRIAXone IN SWFI 2,000 MG/20 ML SYRINGE IVP SCH (09:49)
[2017-09-03] MEDS: INSULIN NPH 300 UNIT/3 ML VIAL SQ SCH (09:49)
--- NOTE | 2017-09-03 10:34 | P.CONS ---
History of Present Illness - Reason for Consult Consult date: 09/03/17 Wounds, pressure ulcer, chronic immunosuppression - History of Present Illness This is a 67-year-old female patient who has a significant past medical history for rheumatoid arthritis on chronic prednisone and chronic kidney disease following with nephrology. Patient was recently admitted to the hospital from August 22 through the at which time she was treated for a distal femur fracture with nondisplaced periprosthetic proximal fibula and tibia fracture. Patient was placed in a knee immobilizer on the right leg per orthopedic service. Patient did not qualify for subacute rehab and she ended up going to her brother's friends home as they previously operated on at all foster care. She had a hospital bed and home care in place. When home care nurse presented on Sunday, there was concern for cellulitis in the left leg as well as the right leg with weeping edema. Patient states there was a bruise on her left lower leg from where it was moved by the nurse that started out as a bruise and then opened up and is now black in color with surrounding erythema. Patient has ulcerations along the lateral right leg and one area above the knee on the lateral edge. Patient has had some drainage of yellow-green. Patient complains of significant pain to the leg with any touch or movement. She has been seen by orthopedics and because she is nonambulatory at this time, and knee immobilizer can be kept off. Patient has been placed on IV antibiotics in form of Unasyn and vancomycin. She has been afebrile with initial white count of 12.9 and repeat at 7.8. Patient had a low hemoglobin of 6.5 yesterday and she is being transfused this morning with one unit of packed RBCs. Creatinine is 1.6. Urinalysis was cloudy, leukoesterase large, WBCs 120, squamous cells 14. Wound culture is positive for MRSA, Serratia marcescens, Klebsiella pneumoniae. Review of Systems All systems: negative Constitutional: Reports fatigue, Reports poor appetite, Reports weakness, Denies chills, Denies fever Eyes: denies blurred vision, denies pain Ears, nose, mouth and throat: Denies dental pain, Denies headache, Denies mouth pain, Denies sore throat Cardiovascular: Denies chest pain, Denies lightheadedness, Denies shortness of breath, Denies syncope Respiratory: Denies cough, Denies cough with sputum, Denies dyspnea, Denies excessive sputum, Denies hemoptysis, Denies wheezing Gastrointestinal: Denies abdominal pain, Denies diarrhea, Denies nausea, Denies vomiting Genitourinary: Denies dysuria, Denies hematuria Musculoskeletal: Reports fractures, Reports gait dysfunction, Reports muscle weakness, Denies myalgias Integumentary: Reports wounds, Denies pruritus, Denies rash Neurological: Denies numbness, Denies weakness Psychiatric: Denies anxiety, Denies depression Endocrine: Denies fatigue, Denies weight change Past Medical History Past Medical History: Coronary Artery Disease (CAD), Heart Failure, Diabetes Mellitus, GERD/Reflux, Hyperlipidemia, Hypertension, Myocardial Infarction (SC) , Pneumonia, Renal Disease, Rheumatoid Arthritis (RA), Thyroid Disorder Additional Past Medical History / Comment(s): 08/21/17 fall,fx rt tib/fib wears immobilizer.no wt bearing. bedsores/leg 08/12/17 with lower extremity edema r/t amlodipine. Other HX: Past low vitamin d levels which caused renal deficiency (CKD stage III), per pt, kidney stones, UTIs, parathyroid overactive related to low vit d levels per pt, pt states her vitamin D supplement has been discontinued-levels are now normal, chronic prednisone secondary to RA followed by Dr. Marlow, chronic CHF, NIDDM type II, chronic peripheral neuropathies hands and feet, chronic low back pain, chronic ANEMIA, hypothyroid, overactive parathyroid, COMPRESSION FX L1, PAST FALLS. Last Myocardial Infarction Date:: 11/2016 History of Any Multi-Drug Resistant Organisms: C-DIFF Year Discovered:: 2014 MDRO Source:: C-DIFF Past Surgical History: Back Surgery, Section, Cholecystectomy, Heart Catheterization, Joint Replacement, Orthopedic Surgery, Tubal Ligation Additional Past Surgical History / Comment(s): Right TKA [place] [address] Sanchez L carpel tunnel release, CYST REMOVED (NECK) AGE 6, 2 back surgery 2004, EGD/ colonoscopy. Past Anesthesia/Blood Transfusion Reactions: No Reported Reaction Additional Past Anesthesia/Blood Transfusion Reaction / Comm: Blood pressure is labile at times with surgery. past blood transfusion-no reaction Smoking Status: Never smoker - Past Family History Sister(s) Family Medical History: Cancer, Diabetes Mellitus Additional Family Medical History / Comment(s): 11 siblings, 6 left. One sister had leukemia and another had ovarian cancer. Mother Family Medical History: Cancer, Diabetes Mellitus Additional Family Medical History / Comment(s): Addisons disease, reproductive cancer. Father Family Medical History: Cancer, Hypertension Additional Family Medical History / Comment(s): Father had throat cancer. He was a smoker. He also had anxiety. Medications and Allergies Home Medications Medication Instructions Recorded Confirmed Type Omeprazole [PriLOSEC] 20 mg PO BID 02/20/14 08/31/17 History Cyanocobalamin [Vitamin B-12] 1,000 mcg PO DAILY 08/19/14 08/31/17 History Ondansetron Odt [Zofran ODT] 4 mg PO Q8HR PRN #15 tab 01/04/15 08/31/17 Rx Liothyronine Sodium [Cytomel] 5 mcg PO DAILY 01/07/15 08/31/17 History Levothyroxine Sodium [Synthroid] 25 mcg PO DAILY@0630 tab 01/12/15 08/31/17 Rx ALPRAZolam [Xanax] 0.25 mg PO BID PRN 09/02/16 08/31/17 History Gabapentin [Neurontin] 100 mg PO TID 09/02/16 08/31/17 History Morphine Sulfate ER [Ms Contin] 15 mg PO BID 09/02/16 08/31/17 History HYDROcodone/APAP 10-325MG [Harmony 1 tab PO Q4HR PRN 09/25/16 08/31/17 History 10-325] Nitroglycerin Sl Tabs [Nitrostat] 0.4 mg SUBLINGUAL Q5M PRN #25 tab 12/09/16 Rx Isosorbide Mononitrate ER [Imdur] 30 mg PO QAM 01/17/17 08/31/17 History Sodium Bicarbonate Tab 650 mg PO DAILY 03/28/17 08/31/17 History Carvedilol 25 mg PO BID 05/03/17 08/31/17 History Magnesium Oxide [Mag-Ox] 250 mg PO HS 05/03/17 08/31/17 History Simvastatin 40 mg PO HS 05/03/17 08/31/17 History Ferrous Sulfate [Iron (65 MG 325 mg PO BID #0 06/03/17 08/31/17 Rx Elemental)] predniSONE 10 mg PO DAILY tab 06/03/17 08/31/17 Rx Metoclopramide [Reglan] 10 mg PO AC-TID #90 tab 06/11/17 08/31/17 Rx Furosemide [Lasix] 40 mg PO DAILY 08/12/17 08/31/17 History Linagliptin [Tradjenta] 5 mg PO DAILY tablet 08/15/17 08/31/17 Rx Cbyzfdet-Vabqypmyc-Hjtlueav 1 drops RIGHT EYE Q4HR bottle 08/15/17 08/31/17 Rx [Maxitrol Ophth Susp] hydrALAZINE HCL [Apresoline] 25 mg PO TID #90 tab 08/15/17 08/31/17 Rx Insulin Glargine,Hum.rec.anlog 8 units SQ DAILY #0 08/28/17 08/31/17 Rx [Toujeo Solostar] Allergies Allergy/AdvReac Type Severity Reaction Status Date / Time codeine Allergy Rash/Hives Verified 08/31/17 12:00 gold sodium thiomalate Allergy Unknown Verified 09/01/17 14:17 Sulfa (Sulfonamide Allergy Rash/Hives Verified 08/31/17 12:00 Antibiotics) Physical Exam Vitals: Vital Signs Temp Pulse Pulse Resp BP BP BP 09/03/17 09:01 98 F 92 16 130/76 09/03/17 09:00 96.5 F L 86 16 126/65 09/03/17 08:54 98.0 F 83 16 130/76 09/03/17 08:28 96.8 F L 83 16 112/63 09/03/17 08:24 96.8 F L 83 16 112/63 09/03/17 08:15 97.8 F 82 18 131/68 09/03/17 08:14 97.8 F 82 18 131/68 09/03/17 05:20 97.1 F L 82 14 124/72 09/03/17 01:54 97.1 F L 86 18 109/62 09/03/17 01:32 18 09/03/17 01:30 18 09/03/17 01:24 97.9 F 88 18 106/54 09/03/17 01:14 98.2 F 2 L 18 102/48 09/03/17 00:36 98.2 F 92 18 102/48 09/02/17 23:00 96.9 F L 89 14 120/57 09/02/17 21:21 83 18 100/53 09/02/17 15:00 99.3 F 95 20 101/52 Pulse Ox 09/03/17 09:01 09/03/17 09:00 95 09/03/17 08:54 09/03/17 08:28 09/03/17 08:24 09/03/17 08:15 94 L 09/03/17 08:14 09/03/17 05:20 100 09/03/17 01:54 99 09/03/17 01:32 98 09/03/17 01:30 87 L 09/03/17 01:24 98 09/03/17 01:14 09/03/17 00:36 92 L 09/02/17 23:00 91 L 09/02/17 21:21 92 L 09/02/17 15:00 91 L Intake and Output 09/02/17 09/03/17 09/03/17 22:59 06:59 14:59 Intake Total 310 0 Balance 310 0 Intake: Blood Product 310 0 Rc As-1 Unit 310 [id number] Rc As-1 Unit 0 [id number] Other: Voiding Method Bedpan # Voids 1 2 # Bowel Movements 1 Weight 87 kg - Constitutional General appearance: cooperative, mild distress, no no acute distress, obese - EENT Eyes: anicteric sclerae, PERRLA ENT: hearing grossly normal - Neck Neck: no lymphadenopathy, normal ROM, no rigidity, no stridor, no thyromegaly - Respiratory Respiratory: bilateral: diminished, negative: rhonchi, wheezing, prolonged expiration, prolonged inspiration - Cardiovascular Rhythm: regular Heart sounds: normal: S1, S2 Abnormal Heart Sounds: systolic murmur - Gastrointestinal General gastrointestinal: no hepatomegaly, normal bowel sounds, no organomegaly , no rigid, soft - Integumentary Patient has significant ulcerations on the lateral side of her right lower extremity as well as the left medial area below the knee. Integumentary: ulcer - Musculoskeletal Musculoskeletal: no gait normal, generalized weakness - Psychiatric Psychiatric: A&O x's 3, appropriate affect, intact judgment & insight Results Results: Laboratory Results WBC 7.8 k/uL (3.8-10.6) 09/02/17 07:33 RBC 2.14 m/uL (3.80-5.40) L 09/02/17 07:33 Hgb 6.5 gm/dL (11.4-16.0) L* 09/02/17 07:33 Hct 22.6 % (34.0-46.0) L 09/02/17 07:33 MCV 105.6 fL (80.0-100.0) H 09/02/17 07:33 MCH 30.5 pg (25.0-35.0) 09/02/17 07:33 MCHC 28.9 g/dL (31.0-37.0) L 09/02/17 07:33 RDW 15.0 % (11.5-15.5) 09/02/17 07:33 Plt Count 158 k/uL (150-450) 09/02/17 07:33 Neutrophils % 82 % 09/02/17 07:33 Lymphocytes % 9 % 09/02/17 07:33 Monocytes % 5 % 09/02/17 07:33 Eosinophils % 2 % 09/02/17 07:33 Basophils % 0 % 09/02/17 07:33 Neutrophils # 6.4 k/uL (1.3-7.7) 09/02/17 07:33 Lymphocytes # 0.7 k/uL (1.0-4.8) L 09/02/17 07:33 Monocytes # 0.4 k/uL (0-1.0) 09/02/17 07:33 Eosinophils # 0.2 k/uL (0-0.7) 09/02/17 07:33 Basophils # 0.0 k/uL (0-0.2) 09/02/17 07:33 Hypochromasia Marked 09/02/17 07:33 Macrocytosis Moderate 09/02/17 07:33 PT 9.8 sec (9.0-12.0) 08/31/17 12:51 INR 1.0 (<1.2) 08/31/17 12:51 APTT 21.9 sec (22.0-30.0) L 08/31/17 12:51 Sodium 144 mmol/L (137-145) 09/02/17 07:33 Potassium 4.5 mmol/L (3.5-5.1) 09/02/17 07:33 Chloride 111 mmol/L (98-107) H 09/02/17 07:33 Carbon Dioxide 25 mmol/L (22-30) 09/02/17 07:33 Anion Gap 8 mmol/L 09/02/17 07:33 BUN 70 mg/dL (7-17) H 09/02/17 07:33 Creatinine 1.60 mg/dL (0.52-1.04) H 09/02/17 07:33 Est GFR (MDRD) Af Amer 39 (>60 ml/min/1.73 sqM) 09/02/17 07:33 Est GFR (MDRD) Non-Af 32 (>60 ml/min/1.73 sqM) 09/02/17 07:33 Glucose 59 mg/dL (74-99) L 09/02/17 07:33 POC Glucose (mg/dL) 140 mg/dL (75-99) H 09/03/17 07:31 POC Glu Certified Nursing Assistant ID Astrid Prieto 09/03/17 07:[address] Glu mg/dL 126 08/31/17 12:51 Hemoglobin A1c 6.0 % (4.0-6.0) 08/31/17 12:51 Plasma Lactic Acid Ricci 0.9 mmol/L (0.7-2.0) 08/31/17 12:51 Calcium 7.9 mg/dL (8.4-10.2) L 09/02/17 07:33 Total Bilirubin 0.6 mg/dL (0.2-1.3) 09/02/17 07:33 AST 13 U/L (14-36) L 09/02/17 07:33 ALT 20 U/L (9-52) 09/02/17 07:33 Alkaline Phosphatase 114 U/L (38-126) 09/02/17 07:33 Total Protein 4.0 g/dL (6.3-8.2) L 09/02/17 07:33 Total Protein (PEP) 4.0 g/dL (6.2-8.2) L 09/02/17 07:33 Albumin 1.8 g/dL (3.5-5.0) L 09/02/17 07:33 Urine Color Yellow 08/31/17 19:00 Urine Appearance Cloudy (Clear) H 08/31/17 19:00 Urine pH 5.0 (5.0-8.0) 02/23/18 19:00 Ur Specific [place] 1.010 (1.001-1.035) 08/31/17 19:00 Urine Protein Negative (Negative) 08/31/17 19:00 Urine Glucose (UA) Negative (Negative) 08/31/17 19:00 Urine Ketones Negative (Negative) 08/31/17 19:00 Urine Blood Negative (Negative) 08/31/17 19:00 Urine Nitrite Negative (Negative) 08/31/17 19:00 Urine Bilirubin Negative (Negative) 08/31/17 19:00 Urine Urobilinogen <2.0 mg/dL (<2.0) 08/31/17 19:00 Ur Leukocyte Esterase Large (Negative) H 08/31/17 19:00 Urine RBC 3 /hpf (0-5) 08/31/17 19:00 Urine WBC 120 /hpf (0-5) H 08/31/17 19:00 Ur Squamous Epith Cells 14 /hpf (0-4) H 08/31/17 19:00 Urine Bacteria Many /hpf (None) H 08/31/17 19:00 Urine Mucus Occasional /hpf (None) H 08/31/17 19:00 Blood Type O Positive 09/02/17 17:57 Blood Type Recheck No 09/02/17 17:57 Antibody Screen NEGATIVE 09/02/17 17:57 Crossmatch See Detail 09/02/17 17:57 Spec Expiration Date 09/05/2017 05009/02/17 17:57 CBC & Chem 7: 09/04/17 08:09 09/03/17 13:38 Labs: Abnormal Lab Results - Last 24 Hours (Table) 09/02/17 09/02/17 09/02/17 Range/Units 07:33 12:08 17:22 POC Glucose (mg/dL) 242 H 209 H (75-99) mg/dL Total Protein (PEP) 4.0 L (6.2-8.2) g/dL Crossmatch 09/02/17 09/02/17 09/03/17 Range/Units 17:57 20:49 02:07 POC Glucose (mg/dL) 262 H 185 H (75-99) mg/dL Total Protein (PEP) (6.2-8.2) g/dL Crossmatch See Detail 09/03/17 Range/Units 07:31 POC Glucose (mg/dL) 140 H (75-99) mg/dL Total Protein (PEP) (6.2-8.2) g/dL Crossmatch Microbiology - Last 24 Hours (Table) 08/31/17 19:00 Urine Culture - Final Urine,Clean Catch 08/31/17 12:51 Blood Culture - Preliminary Blood No Growth after 48 hours 08/31/17 13:15 Gram Stain - Final Leg - Left Wound Culture - Final Methicillin resist S. aureus Serratia marcescens Klebsiella pneumoniae Assessment and Plan Plan: This is a 67-year-old female patient who was recently treated for a distal femur fracture with nondisplaced periprosthetic proximal fibula and tibia fracture with knee immobilizer on the right leg patient presents with decubitus ulcers secondary to knee immobilizer along with cellulitis. Wound culture is positive for MRSA, Serratia marcescens, Klebsiella pneumoniae. She is currently on IV antibiotics in form of Unasyn and vancomycin. Antibiotics will be switched to ceftriaxone and daptomycin. Orthopedics is following. Local wound care will be addressed. Further recommendations as patient progresses. The above dictated assessment and findings were discussed with Dr. Carbone. The impression and plan of care have been directed as dictated. Nadja Kaur nurse practitioner acting as scribe for Dr. Carbone.
[2017-09-03] MEDS: LIOTHYRONINE SODIUM 5 MCG TAB PO SCH (11:35)
[2017-09-03 11:36] LABS: Glucose,Whole Blood 187 mg/dL (75-99)
[2017-09-03] MEDS: hydrALAZINE HCL 25 MG TAB PO SCH ×3 (11:38→21:48)
[2017-09-03] MEDS: HYDROcodone/APAP 10-325MG 1 EACH TAB PO PRN ×2 (13:07→22:02)
[2017-09-03 14:21] LABS: Anisocytosis Slight; Basophils % (A) 0 %; Eosinophils # (A) 0.1 k/uL (0-0.7); Eosinophils % (A) 1 %; HCT 30.5 % (34.0-46.0); Hypochromasia Moderate; Lymphocytes # (A) 0.3 k/uL (1.0-4.8); Lymphocytes % (A) 3 %; MCH 29.8 pg (25.0-35.0); MCHC 30.8 g/dL (31.0-37.0); Macrocytosis Slight; Monocytes # (A) 0.3 k/uL (0-1.0); Monocytes % (A) 4 %; Neutrophils # (A) 8.9 k/uL (1.3-7.7); Neutrophils % (A) 92 %; Platelet Count 164 k/uL (150-450); Poikilocytosis Slight; RBC 3.15 m/uL (3.80-5.40); RDW 17.2 % (11.5-15.5); WBC 9.6 k/uL (3.8-10.6)
[2017-09-03 14:27] LABS: HGB 9.4 gm/dL (11.4-16.0); MCV 96.9 fL (80.0-100.0)
[2017-09-03 14:41] VITALS: BMI 32.9
[2017-09-03 14:41] LABS: Albumin 2.1 g/dL (3.5-5.0); Potassium 5.6 mmol/L (3.5-5.1); Total Bilirubin 0.6 mg/dL (0.2-1.3); Total Protein 4.6 g/dL (6.3-8.2)
[2017-09-03] MEDS: CARBAMIDE PEROXIDE 6.5% DROPS 15 ML BTL BOTH EARS SCH ×2 (15:07→20:14)
--- NOTE | 2017-09-03 16:34 | P.PN ---
Subjective Progress Note Date: 09/03/17 This is a 67-year-old female one of my clinic patient's with past medical history of rheumatoid arthritis on prednisone hyperlipidemia, chronic anemia, CKD [address] Cowan, chronic pain syndrome, hypothyroidism , history of coronary artery disease that is post 2 MIs, chronic diastolic heart failure, hypertension, diabetes mellitus type 2, diabetic neuropathy, diabetic gastroparesis, lower back pain with compression fracture L1, chronic anemia and follows with Dr. Guido, recently admitted from a facility on August 22 to 08/28/2017 found to have a distal femur fracture with nondisplaced proximal fibula and tibia fracture, she was placed in immobilizer she was admitted under orthopedic service she did not qualify for inpatient or subacute rehabilitation, and family is unable to care for her at home, she is physically disabled requiring mainly a power chair and pivoting limited walker assist at home, prior to the right patella new fracture. She is now on a knee mobilizer, with strict nonweightbearing to the right leg and was discharged to an [facility] home which was owned by a family member ,brother. Patient has a hospital bed and home care. Home care nurse came in to evaluate her today, and was concerned about developing cellulitis in the left leg and the right leg, she also is concerned about weeping edema, patient denies any fever however she has chills, weeping edema in the lower legs, and she is on weekly immunosuppressed with chronic prednisone for her rheumatoid arthritis. She is not on any disease modifying agents. She mentions that the left leg has a necrotic wound which started as a bruise on the calf when a nurse tried transferring now measuring approximately 2 cm x 1.5 cm black in collar slightly depressed with peripheral redness surrounding swelling. she has multiple ones in the bilateral posterior thigh, popliteal creases, gluteal creases, all of which are very uncomfortable some of the wounds are draining yellow-green mainly in the right leg During her last admission she has the following evaluation: CAT scan of the knee reveals marked osteopenia. Fractures of both medial and lateral distal femoral metadiaphysis with. Prosthetic extension to the for moral condylar components of the prosthesis. Minimal cortical offset is seen medially. Transverse to oblique fracture of the proximal tibial metadiaphysis. Fracture line may extend to the anterior medial tibial tray screw but otherwise shows no clear periprostatic extension. Subtle minimally offset fibular head/neck fracture. Small knee joint effusion, diffuse muscular atrophy and extensive vascular calcifications. Consult were made with Dr. Carbone, her preliminary cultures shows presumptive MRSA, and gram-negative bacilli, patient was started on vancomycin, and currently is on IV Unasyn. On her last admission she was treated for S marcescens UTI cultures on on 08/26/201709/02: Patient still has uncontrolled pain, hemoglobin dropped to 6.5, no ongoing GI losses, 2 units packed red blood cell, with given today, morphine ER with increased to 30 mg twice a day, 09/03: Patient has been seen by Dr. Carbone with recommendations for daptomycin and ceftriaxone. Local wound care on the right lower extremity is Aquacel Ag moistened with saline and cover with a BD and rolled gauze. Left lower extremity is medihoney to the ulcer area and cover with a BD and rolled gauze. Objective - Vital Signs Vital signs: Vital Signs Temp 97.8 F 09/03/17 14:50 Pulse 85 09/03/17 14:50 Resp 16 09/03/17 14:50 BP 120/58 09/03/17 14:50 Pulse Ox 92 L 09/03/17 14:50 Intake & Output 09/02/17 09/03/17 09/03/17 18:59 06:59 18:59 Intake Total 310 790 Balance 310 790 Weight 87 kg 87 kg Intake: Oral 480 Blood Product 310 310 Rc As-1 Unit 310 [id number] Rc As-1 Unit 310 [id number] Other: Voiding Method Bedpan Bedpan # Voids 4 2 1 # Bowel Movements 1 - Exam General appearance: Present: cooperative, no acute distress, obese - EENT Eyes: Present: anicteric sclerae, EOMI, dentition normal, normal appearance ENT: Present: NA/AT, normal oropharynx - Respiratory Respiratory: bilateral: CTA, negative: diminished, dullness, rales, rhonchi, wheezing, prolonged expiration, prolonged inspiration - Cardiovascular Rhythm: regular Heart sounds: normal: S1, S2 Abnormal Heart Sounds: Absent: systolic murmur, diastolic murmur, rub, S3 Gallop , S4 Gallop, click, other - Gastrointestinal General gastrointestinal: Present: normal bowel sounds, soft - Integumentary Integumentary: Present: normal, normal turgor - Neurologic Neurologic: Present: CNII-XII intact - Psychiatric Psychiatric: Present: A&O x's 3, intact judgment & insight - Labs CBC & Chem 7: 09/04/17 08:09 09/03/17 13:38 Labs: Abnormal Lab Results - Last 24 Hours (Table) 09/02/17 09/02/17 09/02/17 Range/Units 07:33 17:22 17:57 RBC (3.80-5.40) m/uL Hgb (11.4-16.0) gm/dL Hct (34.0-46.0) % MCHC (31.0-37.0) g/dL RDW (11.5-15.5) % Neutrophils # (1.3-7.7) k/uL Lymphocytes # (1.0-4.8) k/uL Potassium (3.5-5.1) mmol/L Chloride (98-107) mmol/L BUN (7-17) mg/dL Creatinine (0.52-1.04) mg/dL Glucose (74-99) mg/dL POC Glucose (mg/dL) 209 H (75-99) mg/dL Calcium (8.4-10.2) mg/dL AST (14-36) U/L Alkaline Phosphatase (38-126) U/L Total Protein (6.3-8.2) g/dL Total Protein (PEP) 4.0 L (6.2-8.2) g/dL Albumin (3.5-5.0) g/dL Crossmatch See Detail 09/02/17 09/03/17 09/03/17 Range/Units 20:49 02:07 07:31 RBC (3.80-5.40) m/uL Hgb (11.4-16.0) gm/dL Hct (34.0-46.0) % MCHC (31.0-37.0) g/dL RDW (11.5-15.5) % Neutrophils # (1.3-7.7) k/uL Lymphocytes # (1.0-4.8) k/uL Potassium (3.5-5.1) mmol/L Chloride (98-107) mmol/L BUN (7-17) mg/dL Creatinine (0.52-1.04) mg/dL Glucose (74-99) mg/dL POC Glucose (mg/dL) 262 H 185 H 140 H (75-99) mg/dL Calcium (8.4-10.2) mg/dL AST (14-36) U/L Alkaline Phosphatase (38-126) U/L Total Protein (6.3-8.2) g/dL Total Protein (PEP) (6.2-8.2) g/dL Albumin (3.5-5.0) g/dL Crossmatch 09/03/17 09/03/17 09/03/17 Range/Units 11:32 13:38 13:38 RBC 3.15 L (3.80-5.40) m/uL Hgb 9.4 L D (11.4-16.0) gm/dL Hct 30.5 L (34.0-46.0) % MCHC 30.8 L (31.0-37.0) g/dL RDW 17.2 H (11.5-15.5) % Neutrophils # 8.9 H (1.3-7.7) k/uL Lymphocytes # 0.3 L (1.0-4.8) k/uL Potassium 5.6 H (3.5-5.1) mmol/L Chloride 108 H (98-107) mmol/L BUN 79 H (7-17) mg/dL Creatinine 2.00 H (0.52-1.04) mg/dL Glucose 192 H (74-99) mg/dL POC Glucose (mg/dL) 187 H (75-99) mg/dL Calcium 8.0 L (8.4-10.2) mg/dL AST 13 L (14-36) U/L Alkaline Phosphatase 139 H (38-126) U/L Total Protein 4.6 L (6.3-8.2) g/dL Total Protein (PEP) (6.2-8.2) g/dL Albumin 2.1 L (3.5-5.0) g/dL Crossmatch Microbiology - Last 24 Hours (Table) 08/31/17 12:51 Blood Culture - Preliminary Blood No Growth after 72 hours 08/31/17 19:00 Urine Culture - Final Urine,Clean Catch 08/31/17 13:15 Gram Stain - Final Leg - Left Wound Culture - Final Methicillin resist S. aureus Serratia marcescens Klebsiella pneumoniae Assessment and Plan Plan: 1. Bilateral cellulitis with weeping edema bilateral lower legs, multiple lesions with purulent discharge on left calf with use and coccyx present prior to admission pressure aconfirmed MRSA and gram-negative bacilli growing Serratia marcescens. Klebsiella pneumonia. Consult with Dr. Raf ragland. Patient is on ceftriaxone and daptomycin 2. Pressure ulcers were the knee immobilizer was located on the right side leg up to the thigh and calf, necrotic ulcer left calf, local wound care consultation patient has impaired Mobility, air mattress ordered patient unable to use the immobilizer at this time secondary to pressure ulcers and is discontinued temporarily 3. Recent Right nondisplaced distal femur fracture and proximal tibia and fibula fracture present prior to admission. Continue current pain management as well as Hastings 10/325 mg 1 tablet 4 hours as needed, patient is already on morphine sulfate twice 30 mg every day. Wounds have developed where immobilizer was, orthopedics has been consulted continue other management as per orthopedic service. 4. Chronic diastolic heart failure. Continue Coreg 25 mg orally twice every day, Lasix 40 mg orally once every day. 5. Diabetic gastroparesis . On Reglan 10 mg 3 times daily. 6. Chronic iron deficiency anemia with drop in hemoglobin. Monitor for blood loss anemia.. Continue iron 325 mg orally twice every day, vitamin B12. Patient is on Procrit type injections through Dr. Guido with improvement of hemoglobin. Outpatient follow-up. blood transfusion given on 09/02/17 2 units packed red blood cells for hemoglobin 6.5 7. Acute kidney injury (present on admission) with stage III chronic kidney disease, azotemia. Monitor chemistries, avoid nephrotoxic agents. Continue sodium bicarb 650 mg daily. Recheck labs in the morning. 8. Chronic immunosuppression from prednisone use, Rheumatoid arthritis not on any DMARDSl. Stable at this time. She is on prednisone 10 mg daily, obtain immunofixation and serum protein electrophoresis 9. uncontrolled Chronic pain syndrome from rheumatoid arthritis along with patellar fracture and wounds. Patient has been on MS Contin 15 mg twice a day, increased to 30mg twice a day on 09/05. along with Hastings 10/325 g every 4 hours as needed. 10. Hypothyroidism. Continue Cytomel 5 mcg orally daily. 11. Diabetes mellitus type 2. Last hemoglobin A1c 6.0 last 08/31/2017 discontinue Levemir we will change this to NPH 8 units every morning to cover for. Steroid-induced hyperglycemia patient has mild hypoglycemia with Levemir. NovoLog coverage, off Prandin 12. CAD. stable. Continue with Coreg 25 mg orally twice every day, Imdur 30 mg orally once every day, Lipitor 20 mg orally once every day. 13. Hypertension and hypertensive cardiovascular disease. Continue coreg 25 mg orally twice daily, hydralazine 25 mg 3 times daily. Amlodipine discontinued by cardiology. 14. Hyperlipidemia. continue Lipitor 20 mg orally once every day. 15. Chronic neuropathy: Mostly idiopathic peripheral neuropathy and diabetic neuropathy as well to continue Neurontin 100 mg 3 times a day. 16. GI prophylaxis. Continue home Protonix 40 milligrams orally once every day. 17. DVT prophylaxis. Heparin 5000 units SC Q 8 h. 18. Anemia of chronic disease, we would restart Procrit, eye redness 40 mg every weekly follows with Dr. Guido as an outpatient. Transfuse it under 7, 19. Moderate protein malnutrition, protein supplementation to be given CODE STATUS: Full code. Discharge plan: Subacute rehab for IV antibiotics Impression and plan of care have been directed as dictated by the signing physician. Nadja Kaur nurse practitioner acting as scribe for signing physician.
[2017-09-03 16:53] LABS: Glucose,Whole Blood 217 mg/dL (75-99)
[2017-09-03] MEDS: MAGNESIUM OXIDE 400 MG TAB PO SCH (20:14)
[2017-09-03] MEDS: ATORVASTATIN 20 MG TAB PO SCH (20:14)
[2017-09-03] MEDS: AMMONIUM LACTATE 12% LOTION 225 GM BTL TOPICAL SCH (20:15)
[2017-09-03] MEDS: ALPRAZolam 0.25 MG TAB PO PRN (20:33)
[2017-09-03 20:37] LABS: Glucose,Whole Blood 245 mg/dL (75-99)
--- NOTE | 2017-09-04 00:15 | P.CON ---
Consult Note - . Consult date: 09/03/17 Assessment/Plan:: This is a 67-year-old female patient who has a significant past medical history for rheumatoid arthritis on chronic prednisone and chronic kidney disease following with nephrology. Patient was recently admitted to the hospital from August 22 through the at which time she was treated for a distal femur fracture with nondisplaced periprosthetic proximal fibula and tibia fracture. Patient was placed in a knee immobilizer on the right leg per orthopedic service. Patient did not qualify for subacute rehab and she ended up going to her brother's friends home as they previously operated on at all foster care. She had a hospital bed and home care in place. When home care nurse presented on Sunday, there was concern for cellulitis in the left leg as well as the right leg with weeping edema. Patient states there was a bruise on her left lower leg from where it was moved by the nurse that started out as a bruise and then opened up and is now black in color with surrounding erythema. Patient has ulcerations along the lateral right leg and one area above the knee on the lateral edge. Patient has had some drainage of yellow-green. Patient complains of significant pain to the leg with any touch or movement. She has been seen by orthopedics and because she is nonambulatory at this time, and knee immobilizer can be kept off. Patient has been placed on IV antibiotics in form of Unasyn and vancomycin. She has been afebrile with initial white count of 12.9 and repeat at 7.8. Patient had a low hemoglobin of 6.5 yesterday and she is being transfused this morning with one unit of packed RBCs. Creatinine is 1.6. Urinalysis was cloudy, leukoesterase large, WBCs 120, squamous cells 14. Wound culture is positive for MRSA, Serratia marcescens, Klebsiella pneumoniae. Please see the consult note is dictated by nurse practitioner Mrs. Nadja Kaur. As noted this patient has a very complex history with her trauma, poor skin integrity and development of multiple pressure ulcerations. They are cleansed with saline and Optisol be utilized to the right lower extremity. Medical honey will be utilized to the left lower extremity. Antibiotic therapy with Unasyn and vancomycin based on cultures. Workup is in process for determining antibiotics the time of discharge which will require intravenous antibiotic therapy which will need to be done at the [facility] facility. Once no evidence of bacteremia then PICC line can be placed completer many week course of therapy and would like to follow in the wound healing center if possible. I agree with evaluation, assessment and plan as dictated by nurse practitioner Mrs. Nadja Kaur.
[2017-09-04] MEDS: HYDROcodone/APAP 10-325MG 1 EACH TAB PO PRN (06:06)
[2017-09-04] MEDS: CARVEDILOL 12.5 MG TAB PO SCH ×2 (06:34→16:40)
[2017-09-04] MEDS: LEVOTHYROXINE 25 MCG TAB PO SCH (06:34)
[2017-09-04] MEDS: METOCLOPRAMIDE 10 MG TAB PO SCH ×3 (06:34→16:40)
[2017-09-04 07:23] LABS: Glucose,Whole Blood 134 mg/dL (75-99)
[2017-09-04 08:42] LABS: Anisocytosis Slight; Basophils % (A) 1 %; Eosinophils # (A) 0.1 k/uL (0-0.7); Eosinophils % (A) 1 %; HCT 29.9 % (34.0-46.0); HGB 8.9 gm/dL (11.4-16.0); Hypochromasia Moderate; Lymphocytes # (A) 0.4 k/uL (1.0-4.8); Lymphocytes % (A) 6 %; MCHC 29.8 g/dL (31.0-37.0); MCV 97.5 fL (80.0-100.0); Macrocytosis Slight; Mean Platelet Volume 8.1; Monocytes # (A) 0.3 k/uL (0-1.0); Monocytes % (A) 5 %; Neutrophils % (A) 87 %; Platelet Count 155 k/uL (150-450); Poikilocytosis Slight; RBC 3.06 m/uL (3.80-5.40); RDW 17.1 % (11.5-15.5); WBC 6.9 k/uL (3.8-10.6)
[2017-09-04] MEDS: INSULIN ASPART 100 UNIT/ML 1 ML 10 ML VIAL SQ SCH ×2 (09:03→13:02)
[2017-09-04] MEDS: AMMONIUM LACTATE 12% LOTION 225 GM BTL TOPICAL SCH (09:03)
[2017-09-04] MEDS: INSULIN NPH 300 UNIT/3 ML VIAL SQ SCH (09:04)
[2017-09-04] MEDS: CARBAMIDE PEROXIDE 6.5% DROPS 15 ML BTL BOTH EARS SCH (09:04)
[2017-09-04] MEDS: FUROSEMIDE 40 MG TAB PO SCH (09:05)
[2017-09-04] MEDS: GABAPENTIN 100 MG CAP PO SCH ×2 (09:05→16:40)
[2017-09-04] MEDS: FERROUS SULFATE 325 MG TAB PO SCH (09:05)
[2017-09-04] MEDS: CYANOCOBALAMIN 500 MCG TAB PO SCH (09:05)
[2017-09-04] MEDS: cefTRIAXone IN SWFI 2,000 MG/20 ML SYRINGE IVP SCH (09:05)
[2017-09-04] MEDS: SODIUM BICARBONATE TAB 650 MG TAB PO SCH (09:05)
[2017-09-04] MEDS: predniSONE 10 MG TAB PO SCH (09:06)
[2017-09-04] MEDS: HEPARIN SODIUM,PORCINE 5,000 UNIT/ML 1 ML VIAL SQ SCH (09:06)
[2017-09-04] MEDS: LINAGLIPTIN 5 MG TABLET PO SCH (09:07)
[2017-09-04] MEDS: hydrALAZINE HCL 25 MG TAB PO SCH ×2 (09:07→16:39)
[2017-09-04] MEDS: ISOSORBIDE MONONITRATE ER 30 MG TAB.ER.24H PO SCH (09:07)
[2017-09-04] MEDS: LIOTHYRONINE SODIUM 5 MCG TAB PO SCH (09:07)
[2017-09-04] MEDS: PANTOPRAZOLE 40 MG TABLET PO SCH (09:08)
[2017-09-04] MEDS: MORPHINE SULFATE ER 30 MG TABLET PO SCH (09:11)
[2017-09-04] MEDS: ALPRAZolam 0.25 MG TAB PO PRN (09:18)
--- NOTE | 2017-09-04 10:45 | P.PN ---
Subjective Progress Note Date: 09/04/17 Principal diagnosis: Proximal tib/fib and distal femur fractures This is a 67 year-old female whom we have been following for proximal tibia and fibula and distal femur fractures. The patient was evaluated at the bedside today. The patient denies nausea, vomiting, abdominal pain, shortness of breath , and chest pain this morning. She states her pain is controlled at this time. The patient has not been up with physical therapy but will be edging on the side of bed this morning. Dr. Carbone has evaluated the patient and recommends Opticel dressings the right leg and medihoney to the left leg. She had a PICC line placed this morning. Objective - Vital Signs Vital signs: Vital Signs Temp 97.1 F L 09/04/17 06:23 Pulse 72 09/04/17 06:23 Resp 16 09/04/17 06:23 BP 134/70 09/04/17 06:23 Pulse Ox 96 09/04/17 06:23 Intake & Output 09/03/17 09/04/17 09/04/17 18:59 06:59 18:59 Intake Total 1270 Balance 1270 Weight 87 kg 82 kg Intake: Oral 960 Blood Product 310 Rc As-1 Unit 310 [id number] Other: Voiding Method Bedpan Bedpan Bedpan # Voids 1 1 - Exam The patient does not appear in acute distress. Alert and orientated x3. Dressings to the bilateral legs are clean dry and intact. Calves are soft and nontender. Good foot and ankle motion without difficulty. Sensation and circulatory status is intact. - Labs CBC & Chem 7: 09/04/17 08:09 09/03/17 13:38 Labs: Abnormal Lab Results - Last 24 Hours (Table) 09/02/17 09/03/17 09/03/17 Range/Units 17:57 11:32 13:38 RBC (3.80-5.40) m/uL Hgb (11.4-16.0) gm/dL Hct (34.0-46.0) % MCHC (31.0-37.0) g/dL RDW (11.5-15.5) % Neutrophils # (1.3-7.7) k/uL Lymphocytes # (1.0-4.8) k/uL Potassium (3.5-5.1) mmol/L Chloride (98-107) mmol/L BUN (7-17) mg/dL Creatinine (0.52-1.04) mg/dL Glucose (74-99) mg/dL POC Glucose (mg/dL) 187 H (75-99) mg/dL Calcium (8.4-10.2) mg/dL AST (14-36) U/L Alkaline Phosphatase (38-126) U/L Total Protein (6.3-8.2) g/dL Albumin (3.5-5.0) g/dL Prealbumin <5.0 L (18.0-42.0) mg/dL Crossmatch See Detail 09/03/17 09/03/17 09/03/17 Range/Units 13:38 13:38 16:50 RBC 3.15 L (3.80-5.40) m/uL Hgb 9.4 L D (11.4-16.0) gm/dL Hct 30.5 L (34.0-46.0) % MCHC 30.8 L (31.0-37.0) g/dL RDW 17.2 H (11.5-15.5) % Neutrophils # 8.9 H (1.3-7.7) k/uL Lymphocytes # 0.3 L (1.0-4.8) k/uL Potassium 5.6 H (3.5-5.1) mmol/L Chloride 108 H (98-107) mmol/L BUN 79 H (7-17) mg/dL Creatinine 2.00 H (0.52-1.04) mg/dL Glucose 192 H (74-99) mg/dL POC Glucose (mg/dL) 217 H (75-99) mg/dL Calcium 8.0 L (8.4-10.2) mg/dL AST 13 L (14-36) U/L Alkaline Phosphatase 139 H (38-126) U/L Total Protein 4.6 L (6.3-8.2) g/dL Albumin 2.1 L (3.5-5.0) g/dL Prealbumin (18.0-42.0) mg/dL Crossmatch 09/03/17 09/04/17 09/04/17 Range/Units 20:35 07:21 08:09 RBC 3.06 L (3.80-5.40) m/uL Hgb 8.9 L (11.4-16.0) gm/dL Hct 29.9 L (34.0-46.0) % MCHC 29.8 L (31.0-37.0) g/dL RDW 17.1 H (11.5-15.5) % Neutrophils # (1.3-7.7) k/uL Lymphocytes # 0.4 L (1.0-4.8) k/uL Potassium (3.5-5.1) mmol/L Chloride (98-107) mmol/L BUN (7-17) mg/dL Creatinine (0.52-1.04) mg/dL Glucose (74-99) mg/dL POC Glucose (mg/dL) 245 H 134 H (75-99) mg/dL Calcium (8.4-10.2) mg/dL AST (14-36) U/L Alkaline Phosphatase (38-126) U/L Total Protein (6.3-8.2) g/dL Albumin (3.5-5.0) g/dL Prealbumin (18.0-42.0) mg/dL Crossmatch Microbiology - Last 24 Hours (Table) 08/31/17 12:51 Blood Culture - Preliminary Blood No Growth after 72 hours 08/31/17 19:00 Urine Culture - Final Urine,Clean Catch Assessment and Plan (1) Cellulitis of right lower extremity Current Visit: Yes Status: Acute Code(s): L03.115 - CELLULITIS OF RIGHT LOWER LIMB SNOMED Code(s): 560635715 (2) Fracture of proximal end of right fibula Current Visit: No Status: Acute Code(s): S82.831A - OTH FRACTURE OF UPPER AND LOWER END OF RIGHT FIBULA, INIT SNOMED Code(s): 85708476 (3) Fracture of proximal end of right tibia Current Visit: No Status: Acute Code(s): S82.101A - UNSP FRACTURE OF UPPER END OF RIGHT TIBIA, INIT FOR CLOS FX SNOMED Code(s): 51088811 (4) Periprosthetic fracture around internal prosthetic right knee joint Current Visit: No Status: Acute Code(s): M97.11XA - PERIPROSTH FRACTURE AROUND INTERNAL PROSTH R KNEE JT, INIT SNOMED Code(s): 480019028 Plan: The clinical findings were discussed with the patient. The case was also discussed with Dr. Sanchez. She may continue out of knee immobilizer while in bed. Physical therapy will work with her today to edge on the side of the bed. She may edge without use of knee immobilizer. Strict nonweightbearing to the right lower extremity. Continue would care per Dr. Carbone. She may be discharged to skilled rehab from an orthopedic standpoint. She will follow up with Dr. Sanchez on an outpatient basis.
[2017-09-04 11:33] LABS: Glucose,Whole Blood 193 mg/dL (75-99)
--- NOTE | 2017-09-04 12:49 | P.DS ---
Providers Date of admission: 08/31/17 17:33 Expected date of discharge: 09/04/17 Attending physician: Cassidy Cruz Consults: 08/31/17 15:38 Consult Physician Routine Consulting Provider: Kj Sanchez Consult Reason/Comments: Right tib fib fx Do you want consulting provider notified?: Yes 09/02/17 19:42 Consult Physician Routine Consulting Provider: Delvis Carbone Consult Reason/Comments: wounds, pressure ulcer, chronic immunosupresssion Do you want consulting provider notified?: Yes Primary care physician: [facility] Course: This is a 67-year-old female one of my clinic patient's with past medical history of rheumatoid arthritis on prednisone hyperlipidemia, chronic anemia, CKD [address] Cowan, chronic pain syndrome, hypothyroidism , history of coronary artery disease that is post 2 MIs, chronic diastolic heart failure, hypertension, diabetes mellitus type 2, diabetic neuropathy, diabetic gastroparesis, lower back pain with compression fracture L1, chronic anemia and follows with Dr. Guido, recently admitted from a facility on August 22 to 08/28/2017 found to have a distal femur fracture with nondisplaced proximal fibula and tibia fracture, she was placed in immobilizer she was admitted under orthopedic service she did not qualify for inpatient or subacute rehabilitation, and family is unable to care for her at home, she is physically disabled requiring mainly a power chair and pivoting limited walker assist at home, prior to the right patella new fracture. She is now on a knee mobilizer, with strict nonweightbearing to the right leg and was discharged to an [facility] home which was owned by a family member ,brother. Patient has a hospital bed and home care. Home care nurse came in to evaluate her today, and was concerned about developing cellulitis in the left leg and the right leg, she also is concerned about weeping edema, patient denies any fever however she has chills, weeping edema in the lower legs, and she is on weekly immunosuppressed with chronic prednisone for her rheumatoid arthritis. She is not on any disease modifying agents. She mentions that the left leg has a necrotic wound which started as a bruise on the calf when a nurse tried transferring now measuring approximately 2 cm x 1.5 cm black in collar slightly depressed with peripheral redness surrounding swelling. she has multiple ones in the bilateral posterior thigh, popliteal creases, gluteal creases, all of which are very uncomfortable some of the wounds are draining yellow-green mainly in the right leg During her last admission she has the following evaluation: CAT scan of the knee reveals marked osteopenia. Fractures of both medial and lateral distal femoral metadiaphysis with. Prosthetic extension to the for moral condylar components of the prosthesis. Minimal cortical offset is seen medially. Transverse to oblique fracture of the proximal tibial metadiaphysis. Fracture line may extend to the anterior medial tibial tray screw but otherwise shows no clear periprostatic extension. Subtle minimally offset fibular head/neck fracture. Small knee joint effusion, diffuse muscular atrophy and extensive vascular calcifications. Consult were made with Dr. Carbone, her preliminary cultures shows presumptive MRSA, and gram-negative bacilli, patient was started on vancomycin, and currently is on IV Unasyn. On her last admission she was treated for S marcescens UTI cultures on on 08/26/201709/02: Patient still has uncontrolled pain, hemoglobin dropped to 6.5, no ongoing GI losses, 2 units packed red blood cell, with given today, morphine ER with increased to 30 mg twice a day, 09/03: Patient has been seen by Dr. Carbone with recommendations for daptomycin and ceftriaxone. Local wound care on the right lower extremity is Aquacel Ag moistened with saline and cover with a BD and rolled gauze. Left lower extremity is medihoney to the ulcer area and cover with a BD and rolled gauze. 09/04: PICC line has been placed. Patient has been cleared for discharge by orthopedics. Dr. Carbone has recommended 2 more weeks of IV antibiotics and follow-up in the wound Center. Patient will be discharged to [facility] today in stable condition. Discharge diagnoses: 1. Bilateral cellulitis with weeping edema bilateral lower legs, multiple lesions with purulent discharge on left calf with use and coccyx present prior to admission 2. Pressure ulcers were the knee immobilizer was located on the right side leg up to the thigh and calf, necrotic ulcer left calf 3. Recent Right nondisplaced distal femur fracture and proximal tibia and fibula fracture present prior to admission. 4. Chronic diastolic heart failure. 5. Diabetic gastroparesis 6. Chronic iron deficiency anemia of chronic disease 7. Acute kidney injury with stage III chronic kidney disease, azotemia. 8. Chronic immunosuppression from prednisone use, Rheumatoid arthritis not on any DMARDSl. Stable at this time. 9. uncontrolled Chronic pain syndrome from rheumatoid arthritis along with patellar fracture and wounds. 10. Hypothyroidism. 11. Diabetes mellitus type 2. Last hemoglobin A1c 6.0 12. CAD. stable. 13. Hypertension and hypertensive cardiovascular disease. 14. Hyperlipidemia. 15. Chronic neuropathy: Mostly idiopathic peripheral neuropathy and diabetic neuropathy 16. Moderate protein malnutrition, protein supplementation Discharge plan: Ronen Impression and plan of care have been directed as dictated by the signing physician. Nadja Kaur nurse practitioner acting as scribe for signing physician. Patient Condition at Discharge: Good Plan - Discharge Summary Discharge Rx Participant: No New Discharge Prescriptions: New Ammonium Lactate Lotion [Lac-Hydrin 12% Lotion] 1 applic TOPICAL BID applic Carbamide Peroxide [Debrox Otic] 5 drops BOTH EARS BID ml cefTRIAXone [Rocephin] 2,000 mg IVP Q24HR #14 syringe Darbepoetin Óscar [Aranesp] 40 mcg SQ Q7D syringe Insulin Aspart [NovoLOG (formulary)] 0 unit SQ ACHS vial Melatonin 6 mg PO HS PRN tablet PRN Reason: Insomnia Morphine Sulfate ER [Ms Contin] 30 mg PO Q12HR #60 tablet Vancomycin 1,000 mg IVPB Q24HR #14 bag Continue Omeprazole [PriLOSEC] 20 mg PO BID Cyanocobalamin [Vitamin B-12] 1,000 mcg PO DAILY Ondansetron Odt [Zofran ODT] 4 mg PO Q8HR PRN #15 tab PRN Reason: Nausea Liothyronine Sodium [Cytomel] 5 mcg PO DAILY Levothyroxine Sodium [Synthroid] 25 mcg PO DAILY@0630 tab Gabapentin [Neurontin] 100 mg PO TID Nitroglycerin Sl Tabs [Nitrostat] 0.4 mg SUBLINGUAL Q5M PRN #25 tab PRN Reason: Chest Pain Isosorbide Mononitrate ER [Imdur] 30 mg PO QAM Sodium Bicarbonate Tab 650 mg PO DAILY Simvastatin 40 mg PO HS Magnesium Oxide [Mag-Ox] 250 mg PO HS Carvedilol 25 mg PO BID predniSONE 10 mg PO DAILY tab Ferrous Sulfate [Iron (65 MG Elemental)] 325 mg PO BID #0 Metoclopramide [Reglan] 10 mg PO AC-TID #90 tab Furosemide [Lasix] 40 mg PO DAILY hydrALAZINE HCL [Apresoline] 25 mg PO TID #90 tab Linagliptin [Tradjenta] 5 mg PO DAILY tablet Szrfuwnk-Wdjghlgxj-Yxpwxuhy [Maxitrol Ophth Susp] 1 drops RIGHT EYE Q4HR bottle Insulin Glargine,Hum.rec.anlog [Brodyudebi Ferreiraostar] 8 units SQ DAILY #0 ALPRAZolam [Xanax] 0.25 mg PO BID PRN #60 tab PRN Reason: Anxiety HYDROcodone/APAP 10-325MG [[place] 10-325] 1 tab PO Q4HR PRN #60 tab PRN Reason: Moderate Pain Discontinued Morphine Sulfate ER [Ms Contin] 15 mg PO BID Discharge Medication List Omeprazole [PriLOSEC] 20 mg PO BID 02/20/14 [History] Cyanocobalamin [Vitamin B-12] 1,000 mcg PO DAILY 08/19/14 [History] Ondansetron Odt [Zofran ODT] 4 mg PO Q8HR PRN #15 tab 01/04/15 [Rx] Liothyronine Sodium [Cytomel] 5 mcg PO DAILY 01/07/15 [History] Levothyroxine Sodium [Synthroid] 25 mcg PO DAILY@0630 tab 01/12/15 [Rx] Gabapentin [Neurontin] 100 mg PO TID 09/02/16 [History] Nitroglycerin Sl Tabs [Nitrostat] 0.4 mg SUBLINGUAL Q5M PRN #25 tab 12/09/16 [Rx ] Isosorbide Mononitrate ER [Imdur] 30 mg PO QAM 01/17/17 [History] Sodium Bicarbonate Tab 650 mg PO DAILY 03/28/17 [History] Carvedilol 25 mg PO BID 05/03/17 [History] Magnesium Oxide [Mag-Ox] 250 mg PO HS 05/03/17 [History] Simvastatin 40 mg PO HS 05/03/17 [History] Ferrous Sulfate [Iron (65 MG Elemental)] 325 mg PO BID #0 06/03/17 [Rx] predniSONE 10 mg PO DAILY tab 06/03/17 [Rx] Metoclopramide [Reglan] 10 mg PO AC-TID #90 tab 06/11/17 [Rx] Furosemide [Lasix] 40 mg PO DAILY 08/12/17 [History] Linagliptin [Tradjenta] 5 mg PO DAILY tablet 08/15/17 [Rx] Ntxhlmlq-Yaxurpbhg-Lflexymj [Maxitrol Ophth Susp] 1 drops RIGHT EYE Q4HR bottle 08/15/17 [Rx] hydrALAZINE HCL [Apresoline] 25 mg PO TID #90 tab 08/15/17 [Rx] Insulin Glargine,Hum.rec.anlog [[place] Solostar] 8 units SQ DAILY #0 08/28/17 [ Rx] ALPRAZolam [Xanax] 0.25 mg PO BID PRN #60 tab 09/04/17 [Rx] Ammonium Lactate Lotion [Lac-Hydrin 12% Lotion] 1 applic TOPICAL BID applic [Rx] Carbamide Peroxide [Debrox Otic] 5 drops BOTH EARS BID ml 09/04/17 [Rx] Darbepoetin Óscar [Aranesp] 40 mcg SQ Q7D syringe 09/04/17 [Rx] HYDROcodone/APAP 10-325MG [[place] 10-325] 1 tab PO Q4HR PRN #60 tab 09/04/17 [Rx] Insulin Aspart [NovoLOG (formulary)] 0 unit SQ ACHS vial 09/04/17 [Rx] Melatonin 6 mg PO HS PRN tablet 09/04/17 [Rx] Morphine Sulfate ER [Ms Contin] 30 mg PO Q12HR #60 tablet 09/04/17 [Rx] Vancomycin 1,000 mg IVPB Q24HR #14 bag 09/04/17 [Rx] cefTRIAXone [Rocephin] 2,000 mg IVP Q24HR #14 syringe 09/04/17 [Rx] Follow up Appointment(s)/Referral(s): Fay Lerner MD [Primary Care Provider] - 1 Week (after discharge from [facility]) Delvis Carbone MD [STAFF PHYSICIAN] - 1 Week ([facility] the [facility]) Ambulatory/Diagnostic Orders: Basic Metabolic Panel [LAB.AMB] Location: Determined By Patient Complete Blood Count w/diff [LAB.AMB] Location: Determined By Patient Vancomycin,Trough [LAB.AMB] Location: Determined By Patient Patient Instructions/Handouts: Heart Failure (DC), Cellulitis (DC), Type 2 Diabetes in Adults (DC) Activity/Diet/Wound Care/Special Instructions: Cardiac, diabetic diet. PICC line care/card given to patient. Discharge Disposition: TRANSFER TO SNF/ECF
--- NOTE | 2017-09-04 13:46 | IR ---
PICC LINE PLACEMENT: HISTORY: Infection requiring long-term antibiotic therapy PROCEDURE: Ultrasound guidance of PICC line placement. PRE FABRICATOR: Dr. Samuels. COMPLICATIONS: None ANESTHESIA: 1. 1% Lidocaine locally. FINDINGS/TECHNIQUE: The procedure was explained to the patient. The risks, complications, benefits and alternatives were discussed and any questions were answered. Informed consent was obtained. The patient was placed supine on the fluoroscopic table and prepped and draped in the usual sterile fas ion. Utilizing a 21 gauge needle and sonographic guidance, access in the left basilic vein was achi eved and there is placement of a 0.018 guidewire. The vein is patent. A 5-F. Sheath was placed over the guidewire. The guidewire and dilator were removed and a 5-F. Double lumen PICC line was placed through the sheath with the chest x-ray confirming the tip at the level of the SVC. The sheath was r emoved, the catheter was flushed and sutured into position. The patient was stable throughout the pr ocedure and remained stable upon discharge from the Department of Radiology. The vein puncture was patent under ultrasound. A garduno scale image was obtained to document patency of the vein punctured. All elements of the maximal barrier technique were utilized. IMPRESSION: 1. Successful PICC line placement under ultrasound performed bedside within the ICU.
[2017-09-04 13:58] LABS: Albumin 1.81 g/dL (3.80-4.90); Gamma Globulin 0.72 g/dL (0.70-1.50)
[2017-09-04 16:25] VITALS: BP 113/72; PULSE 78; TEMP 97.6
[2017-09-04 16:49] LABS: Glucose,Whole Blood 138 mg/dL (75-99)
== END 2017-09-04 17:56 | DRG 593 ==
LOC: EC 11:17 → 4MS4W 17:33
PROVIDERS: ADMIT Internal Medicine; ATTEND Internal Medicine
PROC: 30233N1 Transfusion of Nonautologous Red Blood Cells into Peripheral Vein, Percutaneous Approach (ICD-10-PCS; 2017-09-03)
PROC: 02HV33Z Insertion of Infusion Device into Superior Vena Cava, Percutaneous Approach (ICD-10-PCS; principal; 2017-09-04 09:41)
DX: L89.899 Pressure ulcer of other site, unspecified stage (principal); L03.115 Cellulitis of right lower limb; N17.9 Acute kidney failure, unspecified; E44.0 Moderate protein-calorie malnutrition; E11.22 Type 2 diabetes mellitus with diabetic chronic kidney disease; K31.84 Gastroparesis; E11.40 Type 2 diabetes mellitus with diabetic neuropathy, unspecified; E87.5 Hyperkalemia; I13.0 Hypertensive heart and chronic kidney disease with heart failure and stage 1 through stage 4 chronic kidney disease, or unspecified chronic kidney disease; I50.32 Chronic diastolic (congestive) heart failure; E11.65 Type 2 diabetes mellitus with hyperglycemia; L03.116 Cellulitis of left lower limb; E11.622 Type 2 diabetes mellitus with other skin ulcer; E11.43 Type 2 diabetes mellitus with diabetic autonomic (poly)neuropathy; N18.3 Chronic kidney disease, stage 3 (moderate); B95.62 Methicillin resistant Staphylococcus aureus infection as the cause of diseases classified elsewhere; B96.89 Other specified bacterial agents as the cause of diseases classified elsewhere; B96.1 Klebsiella pneumoniae [K. pneumoniae] as the cause of diseases classified elsewhere; E78.5 Hyperlipidemia, unspecified; M06.9 Rheumatoid arthritis, unspecified; E03.9 Hypothyroidism, unspecified; G89.4 Chronic pain syndrome; M85.80 Other specified disorders of bone density and structure, unspecified site; K21.9 Gastro-esophageal reflux disease without esophagitis; D63.8 Anemia in other chronic diseases classified elsewhere; D50.9 Iron deficiency anemia, unspecified; G60.9 Hereditary and idiopathic neuropathy, unspecified; E86.0 Dehydration; F41.9 Anxiety disorder, unspecified; R26.9 Unspecified abnormalities of gait and mobility; R09.02 Hypoxemia; I25.2 Old myocardial infarction; I25.10 Atherosclerotic heart disease of native coronary artery without angina pectoris; M97.11XD Periprosthetic fracture around internal prosthetic right knee joint, subsequent encounter; S82.101D Unspecified fracture of upper end of right tibia, subsequent encounter for closed fracture with routine healing; S82.831D Other fracture of upper and lower end of right fibula, subsequent encounter for closed fracture with routine healing; S72.401D Unspecified fracture of lower end of right femur, subsequent encounter for closed fracture with routine healing; M48.56XD Collapsed vertebra, not elsewhere classified, lumbar region, subsequent encounter for fracture with routine healing; T38.0X5A Adverse effect of glucocorticoids and synthetic analogues, initial encounter; Z79.4 Long term (current) use of insulin; Z79.891 Long term (current) use of opiate analgesic; Z79.52 Long term (current) use of systemic steroids; Z79.899 Other long term (current) drug therapy; Z87.442 Personal history of urinary calculi; Z86.19 Personal history of other infectious and parasitic diseases; Z90.49 Acquired absence of other specified parts of digestive tract; Z87.01 Personal history of pneumonia (recurrent); Z96.651 Presence of right artificial knee joint; Z87.440 Personal history of urinary (tract) infections; Z90.710 Acquired absence of both cervix and uterus; Z88.5 Allergy status to narcotic agent; Z88.2 Allergy status to sulfonamides; Z91.048 Other nonmedicinal substance allergy status; W19.XXXD Unspecified fall, subsequent encounter
CPT/HCPCS: 36415; 36569; 71046; 76937; 77001; 80053; 81001; 83036; 83605; 84134; 84165; 85025; 85610; 85730; 86334; 86850; 86900; 86901; 86920; 87040; 87070; 87077; 87086; 87186; 87205; 96361; 96365; 96375; 96376; 99285